=== PATIENT | female | born 1960 | race Caucasian/White ===

== ENCOUNTER 2022-08-29 14:31 | Outpatient (OUT) | payer OTHER, SELFPAY ==
--- NOTE | 2022-08-29 14:32 | PM.CN ---
Consult Note: HPI Data of Consult Patient: known to practice within the last 3 years Consult date: 08/29/22 Requesting Physician: MYLES DIANA NP Primary Care Provider: PETER FERRER Consult Narrative Reason for consult: hip pain Narrative: Patient is here for f/u of left hip injection 04/2022. She received significant relief of pain with increased fx. No new sensorimotor sx or new bowel or bladder issues. Medication regimen is controlling pain and assisting with ability to complete ADLs. She does have chronic lower back pain also bilat. No radiculopathy. We discussed the RFA procedure for L4/5, L5/S1 and she would like to proceed. She has failed conservative management with PT, muscle relaxers and NSAIDS. cc:: CC: MYLES DIANA NP Review of Systems ROS Status of ROS 10 or more systems reviewed and unremarkable except as noted in history and below Musculoskeletal Reports: back pain Exam Constitutional Documenting provider has reviewed patient's vital signs: yes Common normals: no apparent distress, average body habitus, oriented x3, healthy appearing, alert and well nourished General appearance: cooperative, comfortable and well developed Orientation/consciousness: Yes awake, Yes oriented to person, Yes oriented to place and Yes oriented to time HENMT Common normals: normocephalic, external ears normal, nasal mucous membranes and turbinates normal and moist oral mucous membranes Respiratory Common normals: normal respiratory effort, no retractions and no use of accessory muscles Effort & inspection: able to speak in complete sentences and symmetric chest movement Back & Pelvis Lumbar spine/lower back: normal to inspection, ROM limited, pain with ROM, paraspinal muscle tenderness and straight leg raise negative bilaterally Other: positive bilat facet loading pain. carlyle positive to back no groin pain with carlyle muscle strength bilat LE 5/5 with intact sensation Assessment and Plan Assessment and Plan (1) Lumbar spondylosis: (2) Osteoarthritis, hip, bilateral: Plan schedule dx bilat MBB l4/5, L5/S1 under fluoroscopy with ultimate progression to thermal RFA
== END 2022-08-29 14:32 ==
PROVIDERS: PCP Internal Medicine; Visit Provider Nurse Practitioner
DX: M47.816 Spondylosis without myelopathy or radiculopathy, lumbar region (principal); M16.0 Bilateral primary osteoarthritis of hip
CPT/HCPCS: G0463

== ENCOUNTER 2022-10-08 09:48 | Day surgery (SDC) | payer OTHER, SELFPAY ==
[2022-10-08 09:56] VITALS: BP 163/83; PULSE 58; RESP 16; TEMP 36.3; O2SAT 100
[2022-10-08 10:34] VITALS: BP 156/73; PULSE 58; RESP 20; O2SAT 98
[2022-10-08] MEDS: BUPIVACAINE HCL 0.25% PF 25 MG/10 ML VIAL 8 ML INJ (10:35)
[2022-10-08 10:36] VITALS: BP 147/69; PULSE 59; RESP 20; O2SAT 97
--- NOTE | 2022-10-08 10:39 | P.ON_ITS ---
Date of procedure: 10/08/22 Pre-op diagnosis: Lumbar Spondylosis Post-op diagnosis: same Procedure: Bilateral Lumbar 4/5, 5/S1 medial branch block Under fluoroscopic guidance Solution injected: 2milliliters Marcaine 0.25% Anesthesia :none Immediate complications none Time out process compliant After informed consent obtained from the patient placed in the Prone proposition . area was prepped and draped in a sterile fashion using betadine .25 gauge spinal needle inserted over each of the above mentioned target areas . Roosevelt were directed towards the target under fluoroscopic guidance . after encountering each of the targets , no indication of intravascular intraneuronal or intrathecal needle tip placement. Then 0 .5 to 1 Milliliter was injected at each level. Roosevelt removed postoperatively. patient transferred to recovery in stable condition to be discharged home after meeting criteria Surgeon: Mendoza Maldonado
== END 2022-10-08 10:41 | disposition home or self-care (01) ==
LOC: SURGOUT 09:49
PROVIDERS: PCP Internal Medicine; Visit Provider Anesthesiology Pain Medicine
DX: M47.816 Spondylosis without myelopathy or radiculopathy, lumbar region (principal)
CPT/HCPCS: 64493; 64494

== ENCOUNTER 2022-10-17 08:28 | Outpatient (OUT) | payer OTHER, SELFPAY ==
--- NOTE | 2022-10-17 08:55 | P.CN_ITS ---
Consult Note: HPI Data of Consult Patient: known to practice within the last 3 years Consult date: 10/17/22 Requesting Physician: MYLES DIANA NP Primary Care Provider: PETER FERRER Consult Narrative Narrative: Patient is here for f/u of bilat dx MBB to L4/5, L5/S1 done on 10/08/22. She had 90% relief of pain with increased fx for several hours after procedure. Pain is in lumbar area L>R worse with standing and ROM. She would like to proceed with second MBB and ultimately RFA of same area. No new sensorimotor sx or bowel or b ladder issues. No adverse medication SE. Medications assist patient with better ability to perform ADLs. cc:: CC: MYLES DIANA NP Review of Systems ROS Status of ROS 10 or more systems reviewed and unremarkable except as noted in history and below Musculoskeletal Reports: back pain PFSH PFSH Medical History Surgical History Meds Home Medications and Allergies Home Medications Medication Instructions Recorded Confirmed Type baclofen 10 mg tablet 10 mg PO DAILY 08/29/22 10/08/22 History citalopram 20 mg tablet (Celexa) 20 mg PO DAILY 08/29/22 10/08/22 History estradiol 1 mg tablet (Estrace) 1 mg PO DAILY 08/29/22 10/08/22 History omeprazole 40 mg capsule,delayed 40 mg PO DAILY 08/29/22 10/08/22 History release celecoxib 200 mg capsule mg 10/08/22 History Allergies Allergy/AdvReac Type Severity Reaction Status Date / Time Sulfa (Sulfonamide Allergy Mild Unknown Verified 10/08/22 09:56 Antibiotics) Exam Constitutional Documenting provider has reviewed patient's vital signs: yes Common normals: no apparent distress, average body habitus, oriented x3, no limitations, healthy appearing, alert and well nourished General appearance: cooperative, comfortable and well developed Orientation/consciousness: Yes awake, Yes oriented to person, Yes oriented to place and Yes oriented to time HENMT Common normals: normocephalic and moist oral mucous membranes Respiratory Common normals: normal respiratory effort, no retractions and no use of accessory muscles Effort & inspection: able to speak in complete sentences and symmetric chest movement Back & Pelvis Common normals: thoracic and lumbar spine normal to inspection Lumbar spine/lower back: normal to inspection, ROM limited, pain with ROM, paraspinal muscle tenderness and paraspinal muscle spasm Other: facet loading pain bilat lumbar positive carlyle bilat L>R muscle strength 5/5 bilat LE with intact sensation Assessment and Plan Assessment and Plan (1) Lumbar spondylosis: (2) Muscle spasm: Plan schedule second dx MBB bilat L4/5 L5/S1 under fluoroscopy with ultimate progression to thermal RFA
== END 2022-10-17 08:29 | disposition home or self-care (01) ==
LOC: PM 08:28
PROVIDERS: PCP Internal Medicine; Visit Provider Nurse Practitioner
DX: M47.816 Spondylosis without myelopathy or radiculopathy, lumbar region (principal); M62.838 Other muscle spasm
CPT/HCPCS: G0463

== ENCOUNTER 2022-11-26 07:53 | Day surgery (SDC) | payer OTHER, SELFPAY ==
[2022-11-26 08:09] VITALS: BP 133/87; PULSE 68; RESP 16; TEMP 36.3; O2SAT 99
[2022-11-26 08:33] VITALS: BP 159/70; PULSE 64; RESP 18; O2SAT 97
[2022-11-26] MEDS: BUPIVACAINE HCL 0.25% PF 25 MG/10 ML VIAL INJ (08:35)
[2022-11-26 08:37] VITALS: BP 157/74; PULSE 60; RESP 18; O2SAT 98
--- NOTE | 2022-11-26 10:13 | W.PM.PROCNOT ---
Date of procedure: 11/26/22 Pre-op diagnosis: Lumbar spondylosis Post-op diagnosis: same as pre-op Procedure: Bilateral lumbar 4/5, 5/Sacral 1 medial branch block Under fluoroscopic guidance Solution injected: 2millilitersMarcaine 0.25% Anesthesia :none Immediate complications none Time out process compliant After informed consent obtained from the patient placed in the Prone proposition . area was prepped and draped in a sterile fashion using Cloraprep .25 gauge spinal needle inserted over each of the above mentioned target areas . Lacrosse were directed towards the target under fluoroscopic guidance . after encountering each of the targets , no indication of intravascular intraneuronal or intrathecal needle tip placement. Then 0 .5 to 1 Milliliter was injected at each level. Lacrosse removed postoperatively. patient transferred to recovery in stable condition to be discharged home after meeting criteria Anesthesia: Local Surgeon: Mendoza Maldonado Condition: stable
== END 2022-11-26 08:42 | disposition home or self-care (01) ==
PROVIDERS: PCP Internal Medicine; Visit Provider Anesthesiology Pain Medicine
DX: M47.816 Spondylosis without myelopathy or radiculopathy, lumbar region (principal)
CPT/HCPCS: 64493; 64494

== ENCOUNTER 2022-12-04 13:09 | Outpatient (OUT) | payer OTHER, SELFPAY ==
--- NOTE | 2022-12-04 13:35 | P.CN_ITS ---
Consult Note: HPI Data of Consult Patient: known to practice within the last 3 years Requesting Physician: Jordyn Schroeder NP Primary Care Provider: PETER FERRER Consult Narrative Reason for consult: f/u Narrative: Giselle Georges a pleasant 62 year old female presents for evaluation of chronic low back pain without radiculopathy. Today rating pain 2/10. Patient recently had MBB #2 at bilateral L4/5 and L5/s1 with 100% pain relief and functional improvement immediately after and hours following the procedure, was able to wake 1.5 miles and she has not been able to do this in a long time due to her pain. She would like to proceed with Thermal RFAs. cc:: CC: Jordyn Schroeder NP Review of Systems ROS Status of ROS 10 or more systems reviewed and unremarkable except as noted in history and below Musculoskeletal Reports: back pain and joint pain PFSH PFS Medical History Surgical History Meds Home Medications and Allergies Home Medications Medication Instructions Recorded Confirmed Type baclofen 10 mg tablet 10 mg PO DAILY 08/29/22 11/26/22 History citalopram 20 mg tablet (Celexa) 20 mg PO DAILY 08/29/22 11/26/22 History estradiol 1 mg tablet (Estrace) 1 mg PO DAILY 08/29/22 11/26/22 History omeprazole 40 mg capsule,delayed 40 mg PO DAILY 08/29/22 11/26/22 History release celecoxib 200 mg capsule mg 10/08/22 History Allergies Allergy/AdvReac Type Severity Reaction Status Date / Time Sulfa (Sulfonamide Allergy Mild Unknown Verified 10/08/22 09:56 Antibiotics) Exam Constitutional Documenting provider has reviewed patient's vital signs: yes Common normals: no apparent distress, oriented x3, healthy appearing, alert and well nourished General appearance: cooperative HENMT Common normals: normocephalic, hearing grossly normal bilaterally and moist oral mucous membranes Head and scalp: normocephalic Eye Common normals: PERRL Pupil: PERRL Neck & C-Spine Common normals: full ROM General: normal visual inspection Chest Common normals: inspection of chest normal Respiratory Common normals: normal respiratory effort, no retractions and no use of accessory muscles Back & Pelvis Common normals: thoracic and lumbar spine normal to inspection Lumbar spine/lower back: normal to inspection, ROM limited, pain with ROM, paraspinal muscle tenderness and paraspinal muscle spasm Other: facet loading pain bilat lumbar positive carlyle bilat L>R muscle strength 5/5 bilat LE with intact sensation predominately axial back pain without radiculopathy Extremity Left lower extremity: hip joint Other: tenderness over GTB, previous intrarticular hip injection provided 50% pain relief for a few weeks. Neuro Common normals: oriented x3, CN's II-XII intact bilaterally, moves all extremities, no focal motor deficits, no sensory deficits noted and deep tendon reflexes 2+ bilaterally Sensorium/orientation: alert Motor exam: strength 5/5 throughout and no movement abnormalities noted Psych Common normals: mental status grossly normal, thought process normal, cooperative, affect normal, speech normal and activity/motor behavior normal Speech: normal speech Thought process: normal thought process Results Additional Findings Additional findings: I have checked an [place] report on this patient today and there are no aberr ancies noted in the prescribing history.?? A drug screen was completed and reviewed within the last year, and if there has not been a drug screen completed we ordered one today to monitor higher risk, state monitored pain medication use. As part of providing excellent, safe, comprehensive care, the following was completed at our patient's visit: 1. A medication reconciliation and review to ensure accurate knowledge of current/active medications, including asking our patients to inform us about any [id number] medications or herbal remedies/nutritional supplements/alternative remedies. 2. A review to specifically ensure our patients have had annual screening for: elevated body mass index (BMI), tobacco use, screening for depression, and screening for unhealthy alcohol use. When screening is concerning, patients are provided with education and the specific recommendation to discuss the concerning health issue and treatment options with their primary care provider. Assessment and Plan Assessment and Plan (1) Lumbar spondylosis: Assessment and Plan: We discussed the risks and benefits of the procedure with the patient (2) Osteoarthritis, hip, bilateral: (3) Muscle spasm: (4) Greater trochanteric bursitis: Assessment and Plan: consider left GTB injection in the future (5) Obesity (BMI 30-39.9): Plan continue HEP continue current medications, tolerating well without side effects proceed with thermal RFA with IV sedation of left then right L4/5 L5/s1 under fluoroscopy follow up 1 month after completion of procedures
== END 2022-12-04 13:10 | disposition home or self-care (01) ==
LOC: PM 13:09
PROVIDERS: PCP Internal Medicine; Visit Provider Nurse Practitioner
DX: M47.816 Spondylosis without myelopathy or radiculopathy, lumbar region (principal); M16.0 Bilateral primary osteoarthritis of hip; E66.9 Obesity, unspecified; M70.60 Trochanteric bursitis, unspecified hip
CPT/HCPCS: G0463

== ENCOUNTER 2023-01-07 11:28 | Day surgery (SDC) | payer OTHER, SELFPAY ==
[2023-01-07 12:07] VITALS: BP 158/93; PULSE 72; RESP 16; TEMP 36.8; O2SAT 99
[2023-01-07 13:13] VITALS: BP 150/79; PULSE 64; RESP 18; O2SAT 95
[2023-01-07] MEDS: BUPIVACAINE HCL 0.25% PF 25 MG/10 ML VIAL 4 ML INJ (13:16)
[2023-01-07] MEDS: LIDOCAINE HCL 2% 400 MG/20 ML MDV 10 ML INJ (13:17)
[2023-01-07] MEDS: METHYLPREDNISOLONE ACETATE 40 MG/ML VIAL INJ (13:17)
[2023-01-07 13:19] VITALS: BP 148/81; PULSE 68; RESP 18; O2SAT 97
--- NOTE | 2023-01-07 13:36 | W.PM.PROCNOT ---
Date of procedure: 01/07/23 Pre-op diagnosis: Lumbar Spondylosis Post-op diagnosis: same as pre-op Procedure: Left Lumbar 4/5, 5/sacral 1 Radiofrequency ablation Under fluoroscopic guidance Rhizotomy was created using radio frequency ablation at 80?C for 90 seconds 1 to 2 lesions created at each site. Post lesioning injection of 2 mL each of 0.25% Marcaine and 2% lidocaine with Depo-Medrol 40mg. 0.5 to 1 mL injected at each site IV in place no If Intravenous fluids: NS at KVO Anesthesia local 2% lidocaine for Anesthesia Other: local Timeout process compliant After informed consent obtained.Patient brought to the procedure room placed in the prone position skin overlying the area was prepped and draped in a sterile fashion using betadine. 25 gauge needle was used to create a skin wheal over each of the targeted areas utilizing 2% lidocaine. A rhizotomy needle with a 10 mm active tip was inserted over each of the anesthetized areas and directed towards each of the medial branches accomplished under fluoroscopic guidance. after encountering the same we had positive sensory stimulation, negative motor stimulation was noted. lesions were then created. Post lesioning, steroid solution was injected needles removed. Patient was transferred to recovery room in stable condition to be discharged home after meeting criteria. Anesthesia: Local Surgeon: Mendoza Maldonado Condition: stable
== END 2023-01-07 13:27 | disposition home or self-care (01) ==
PROVIDERS: PCP Internal Medicine; Visit Provider Anesthesiology Pain Medicine
DX: M47.816 Spondylosis without myelopathy or radiculopathy, lumbar region (principal)
CPT/HCPCS: 64635; 64636; J1030

== ENCOUNTER 2023-01-28 09:21 | Day surgery (SDC) | payer OTHER, SELFPAY ==
[2023-01-28 09:37] VITALS: BP 128/79; PULSE 78; RESP 16; TEMP 36.8; O2SAT 98
[2023-01-28 10:15] VITALS: BP 160/75; PULSE 66; RESP 18; O2SAT 98
[2023-01-28] MEDS: BUPIVACAINE HCL 0.25% PF 25 MG/10 ML VIAL 4 ML INJ (10:19)
[2023-01-28] MEDS: LIDOCAINE HCL 2% 400 MG/20 ML MDV 10 ML INJ (10:19)
[2023-01-28] MEDS: METHYLPREDNISOLONE ACETATE 40 MG/ML VIAL INJ (10:20)
[2023-01-28 10:23] VITALS: BP 141/77; PULSE 63; RESP 18; O2SAT 99
--- NOTE | 2023-01-28 10:35 | W.PM.PROCNOT ---
Date of procedure: 01/28/23 Pre-op diagnosis: Lumbar Spondylosis Post-op diagnosis: same as pre-op Procedure: Right Lumbar 4/5, 5/sacra; 1 Radiofrequency ablation Under fluoroscopic guidance Rhizotomy was created using radio frequency ablation at 80?C for 90 seconds 1 to 2 lesions created at each site. Post lesioning injection of 2 mL each of 0.25% Marcaine and 2% lidocaine with Depo-Medrol 40mg. 0.5 to 1 mL injected at each site IV in place no If Intravenous fluids: NS at KVO Anesthesia local 2% lidocaine for Anesthesia Other: local Timeout process compliant After informed consent obtained.Patient brought to the procedure room placed in the prone position skin overlying the area was prepped and draped in a sterile fashion using betadine. 25 gauge needle was used to create a skin wheal over each of the targeted areas utilizing 2% lidocaine. A rhizotomy needle with a 10 mm active tip was inserted over each of the anesthetized areas and directed towards each of the medial branches accomplished under fluoroscopic guidance. after encountering the same we had positive sensory stimulation, negative motor stimulation was noted. lesions were then created. Post lesioning, steroid solution was injected needles removed. Patient was transferred to recovery room in stable condition to be discharged home after meeting criteria. Anesthesia: Local Surgeon: Mendoza Maldonado Condition: stable
== END 2023-01-28 10:33 | disposition home or self-care (01) ==
LOC: SURGOUT 09:21
PROVIDERS: PCP Internal Medicine; Visit Provider Anesthesiology Pain Medicine
DX: M47.816 Spondylosis without myelopathy or radiculopathy, lumbar region (principal)
CPT/HCPCS: 64635; 64636; J1030

== ENCOUNTER 2023-02-20 11:16 | Outpatient (OUT) | payer OTHER, SELFPAY ==
--- NOTE | 2023-02-20 11:39 | P.CN_ITS ---
Consult Note: HPI Data of Consult Patient: known to practice within the last 3 years Requesting Physician: Jordyn Schroeder NP Primary Care Provider: PETER FERRER Consult Narrative Reason for consult: f/u Narrative: Flores Georges a pleasant 62 year old female with chronic back pain following after right and left L4/5 L5/S1 thermal RFA. Patient reporting 75% pain relief and functional improvement, today pain is 2/10. Patient feels her pain is now more related to posture and muscle tightness. Continues to benefit from celebrex and baclofen. cc:: CC: Jordyn Schroeder NP Review of Systems ROS Status of ROS 10 or more systems reviewed and unremarkable except as noted in history and below Musculoskeletal Reports: back pain PFSH PFSH Medical History Surgical History H/O hand surgery ?Z98.890 - Other specified postprocedural states (ICD-10) H/O: hysterectomy ?Z90.710 - Acquired absence of both cervix and uterus (ICD-10) History of cholecystectomy ?Z90.49 - Acquired absence of other specified parts of digestive tract (ICD- 10) Meds Home Medications and Allergies Home Medications Medication Instructions Recorded Confirmed Type baclofen 10 mg tablet 10 mg PO DAILY 08/29/22 01/28/23 History citalopram 20 mg tablet (Celexa) 20 mg PO DAILY 08/29/22 01/28/23 History estradiol 1 mg tablet (Estrace) 1 mg PO DAILY 08/29/22 01/28/23 History omeprazole 40 mg capsule,delayed 40 mg PO DAILY 08/29/22 01/28/23 History release celecoxib 200 mg capsule mg 10/08/22 History diazepam 5 mg tablet mg 01/07/23 History Allergies Allergy/AdvReac Type Severity Reaction Status Date / Time Sulfa (Sulfonamide Allergy Mild Unknown Verified 01/07/23 12:05 Antibiotics) Exam Constitutional Documenting provider has reviewed patient's vital signs: yes Common normals: no apparent distress, oriented x3, healthy appearing, alert and well nourished General appearance: cooperative HENMT Common normals: normocephalic, hearing grossly normal bilaterally and moist oral mucous membranes Head and scalp: normocephalic Eye Common normals: PERRL Pupil: PERRL Neck & C-Spine Common normals: full ROM General: normal visual inspection Chest Common normals: inspection of chest normal Respiratory Common normals: normal respiratory effort, no retractions and no use of accessory muscles Back & Pelvis Common normals: thoracic and lumbar spine normal to inspection Lumbar spine/lower back: normal to inspection Other: muscle strength 5/5 bilat LE with intact sensation Neuro Common normals: oriented x3, CN's II-XII intact bilaterally, moves all extremities, no focal motor deficits, no sensory deficits noted and deep tendon reflexes 2+ bilaterally Sensorium/orientation: alert Motor exam: strength 5/5 throughout and no movement abnormalities noted Psych Common normals: mental status grossly normal, thought process normal, cooperative, affect normal, speech normal and activity/motor behavior normal Speech: normal speech Thought process: normal thought process Results Additional Findings Additional findings: I have checked an [place] report on this patient today and there are no aberrancies noted in the prescribing history.?? A drug screen was completed and reviewed within the last year, and if there has not been a drug screen completed we ordered one today to monitor higher risk, state monitored pain medication use. As part of providing excellent, safe, comprehensive care, the following was completed at our patient's visit: 1. A medication reconciliation and review to ensure accurate knowledge of current/active medications, including asking our patients to inform us about any [id number] medications or herbal remedies/nutritional supplements/alternative remedies. 2. A review to specifically ensure our patients have had annual screening for: elevated body mass index (BMI), tobacco use, screening for depression, and screening for unhealthy alcohol use. When screening is concerning, patients are provided with education and the specific recommendation to discuss the concerning health issue and treatment options with their primary care provider. Assessment and Plan Assessment and Plan (1) Lumbar spondylosis: (2) Muscle spasm: Plan can increase baclofen to 10mg BID prn muscle spasms f/u 6 months, sooner if needed
== END 2023-02-20 11:17 | disposition home or self-care (01) ==
LOC: PM 11:16
PROVIDERS: PCP Internal Medicine; Visit Provider Nurse Practitioner
DX: M47.816 Spondylosis without myelopathy or radiculopathy, lumbar region (principal); M62.838 Other muscle spasm
CPT/HCPCS: G0463

== ENCOUNTER 2023-08-06 10:57 | Outpatient (OUT) | payer OTHER, SELFPAY ==
--- OUTSIDE RECORDS SUMMARY | 2023-08-06 11:21 | XMS_ITS | CCD ---
Author Organization [facility] Care Team Providers Care Sales Branch Manager Name Role Phone Ken Ortiz Unavailable DO Alice Polo Primary Care Provider DO Ken Ortiz Attending Provider TOMMIE Heller Emergency Provider DO Alice Polo Primary Care Provider [phone] DO Oswaldo Deleon Emergency Provider [phone] DO Alice Polo Attending Provider Dr. Alice Polo Primary Care [facility] Dr. Alice Polo Primary Care [facility] LUNA NABIL, ALICE Primary Care Unavailable RAHEEL ., DR ARNAV Martínez Attending Unavailable COREA ., DR ARNAV Martínez Admitting Unavailable COREA ., DR ARNAV Martínez Consulting Unavailable [facility] Primary Care Unavailable MAHMOOD .JONI Consulting Unavailable RAHEEL ., DR ARNAV Martínez Attending Unavailable COREA ., DR ARNAV Martínez Admitting Unavailable [facility] Primary Care Unavailable MAHMOOD ., JONI Consulting Unavailable COREA ., DR ARNAV Martínez Attending Unavailable COREA ., DR ARNAV Martínez Admitting Unavailable [facility] Primary Care Unavailable LAKSHMIPATHY ., NARENDRANATH Admitting [place] v[place]SH[place] ., NARENDRANATH Attending [place] v[place] [facility] Primary Care Unavailable COREA ., DR ARNAV Martínez Consulting Unavailable COREA ., DR ARNAV Martínez Attending Unavailable COREA ., DR ARNAV Martínez Admitting Unavailable COREA ., DR ARNAV Martínez Attending Unavailable COREA ., DR ARNAV Martínez Admitting Unavailable MISC, DR SCHMIDT Consulting Unavailable [facility] Primary Care Unavailable MAHMOOD ., JONI Consulting Unavailable MAHMOOD ., JONI Consulting Unavailable COREA ., DR ARNAV Martínez Attending Unavailable COREA ., DR ARNAV Martínez Admitting Unavailable [facility]ICE Primary Care Unavailable COREA ., DR ARNAV Martínez Consulting Unavailable COREA ., DR ARNAV Martínez Attending Unavailable COREA ., DR ARNAV Martínez Admitting Unavailable [facility]ICE Primary Care Unavailable ROLAN CRISOSTOMO Consulting Unavailable [facility] Primary Care Unavailable MAHMOOD ., JONI Attending Unavailable MAHMOOD ., JONI Admitting Unavailable ZIEBER, DR GENESIS Mo Consulting Unavailable MAHMOOD ., JONI Consulting Unavailable [facility] ALICE Primary Care Unavailable MAHMOOD ., JONI Attending Unavailable MAHMOOD ., JONI Admitting Unavailable ZIEBER, DR GENESIS Mo Consulting Unavailable MAHMOOD ., JONI Consulting Unavailable MAHMOOD ., JONI Consulting Unavailable COREA ., DR ARNAV Martínez Attending Unavailable COREA ., DR ARNAV Martínez Admitting Unavailable [facility] Primary Care Unavailable [place], DO Alice Primary Care Provider [phone]( [phone] DO Oswaldo Deleon Emergency Provider [phone] Luna-DO Nabil Alice Attending Provider [phone] Melani DO Alice Referring Provider [phone] MD Ken Mendez Attending Provider Edison Monroe Unavailable Luna-DO Nabil Alice Primary Care Provider MD Edison Monroe Attending Provider CRISTEL Perez Attending Provider [phone] [facility] Primary [facility] Unavailable Edison Monroe Admitting Unavailable [facility] [place] Attending Unavailable Rm Heller Admitting Unavailable Rm Heller Attending Unavailable [facility] Primary Care Unavailable Oswaldo Deleon Attending Unavailable [facility], Alice Primary Care Unavailable Oswaldo Deleon Admitting Unavailable Perez, Alix Admitting Unavailable Perez, Alix Attending Unavailable [facility], Alice Primary Care Unavailable [facility], Alice Primary Care Unavailable Alice Polo Attending Unavailable Alice Polo Admitting Unavailable Ken Mendez Admitting Unavailable Ken Mendez Attending Unavailable Alice Polo Primary Care Unavailable Alice Polo Referring Unavailable Ken Mendez Admitting Unavailable Ken Mendez Attending Unavailable Alice Polo Primary Care Unavailable Gabe Gonzalez Unavailable Alice Polo DO Primary Care Provider PAUL MCGRATH Attending Unavailable PAUL MCGRATH Attending Unavailable ALICE POLO Attending Unavailab PAUL Cortes Attending Unavailable PAUL MCGRATH Attending Unavailable ALICE POLO Referring Unavailab RAQUEL Farrell Attending Unavailable RAQUEL ALFONSO Referring Unavailable PAUL MCGRATH Attending Unavailable PAUL MCGRATH Attending Unavailable Allergies Allergy Classification Reported Allergen(s) Allergy Type Date of Onset Reaction(s) Facility (1 source) Sulfonamides (Antibiotic) Drug allergy (disorder) [facility] (2 sources) Sulfonamides (Antibiotic); Translations: [Sulfa (Sulfonamide Antibiotics)] Allergy to substance 3 [facility] (3 sources) Sulfonamides (Antibiotic) Drug Allergy 3 Hives, Rash [facility] Medications Current Medications Medication Drug Class(es) Dates Sig (Normalized) Sig (Original) baclofen 10 mg oral tablet (16 sources) gamma-Aminobutyric Acid-ergic Agonist Start: 11-25-2020 Baclofen Active 10 MG PO As Directed November 25, 2020 12:00am baclofen ([place]iores al) 5 MG tablet Take 5 mg by mouth as needed at bedtime 0 Active Baclofen Active celecoxib 200 mg oral capsule (6 sources) Nonsteroidal Anti-inflammatory Drug Start: 07-11-2023 take 1 capsule by mouth once daily Celecoxib (Celebrex) 200 mg capsule Active 200 MG PO Daily July 11, 2023 12:00am take 1 capsule by [facility] every twenty-four hours as needed CeleBREX 200 MG capsule Take 200 mg by mouth Daily as needed. 0 Active citalopram 20 mg oral tablet (19 sources) Serotonin Reuptake Inhibitor Start: 09-03-2022 End: 12-11-2023 take 20 mg by mouth once daily Citalopram Active 20 MG PO Daily September 03, 2022 12:00am Start: 04-20-2018 End: 09-03-2022 take 2 tablets by mouth once daily Citalopram (Celexa) 10 mg Tablet Discontinued 20 MG PO Daily April 20, 2018 1:00am September 03, 2022 12:15pm take 1 tablet by vishal th every twenty-four hours CeleXA 10 MG 1 tablet Orally Once a day Active clobetasol propionate 0.5 mg/ml topical cream (3 sources) Corticosteroid clobetasol ([place] vate) 0.05 % cream Apply topically 2 (two) times a day. 0 Active estradiol 0.5 mg oral tablet (16 sources) Estrogen Start: 12-11-2022 End: 12-11-2023 take 1 tablet by mouth in the morning estradiol (Estrace) 0.5 MG tablet Indications: Postmenopausal HRT (hormone replacement therapy) Take 1 tablet (0.5 mg) by mouth in the morning. 90 tablet 3 12/11/2022 12/11/2023 Active Start: 04-20-2018 take 1 mg by mouth once daily Estradiol Active 1 MG PO Daily April 20, 2018 1:00am take 0.5 tablet by m outh once daily Estradiol 0.5 MG 1/2 TABLET Orally DAILY Active fluconazole 150 mg oral tablet (2 sources) Azole Antifungal Start: 05-08-2023 fluconazole ( Diflucan) 150 MG tablet Indications: Vulvovaginal Candidiasis 1 tab now-repeat in 4-7 days if needed. 2 tablet 0 05/08/2023 Active fluticasone (5 sources) Corticosteroid Start: 07-11-2023 fluticasone pr opionate (Flonase) Active INTRANASAL July 11, 2023 12:00am Start: 02-01-2023 take 1 spray(s) nasa l route in the morning fluticasone (Flonase) 50 MCG/ACT nasal spray Administer 1 spray into each nostril in the morning. 0 02/01/2023 Active phentermine hydrochloride 37.5 mg oral capsule (11 sources) Sympathomimetic Amine Anorectic Start: 07-11-2023 take 37.5 mg by mouth once daily 30 minutes after breakfast Phentermine Active 37.5 MG PO Daily July 11, 2023 12:00am must administer 30 minutes before or 1-2 hours after breakfast Start: 03-31-2023 End: 06-07-2023 take 1 tablet by mouth before mealtime phentermine (Adipex-P) 37.5 MG tablet Indications: Abnormal weight gain , BMI 29.0-29.9,adult Take 1 tablet (37.5 mg) by mouth in the morning. Take before meals. 30 tablet 0 05/08/2023 06/07/2023 Active take 1 capsule by [facility] every twenty-four hours Adipex-P 37.5 MG 1 tablet Orally Once a day Not-Taking rifAXIMin 550 mg oral tablet (1 source) Rifamycin Antibacterial Start: 10-11-2021 take 1 tablet by mouth every eight hours Xifaxan 550 MG 1 tablet Orally Three times a day for 14 days Sep, Active Completed/Discontinued Medications Medication Drug Class(es) Dates Sig (Normalized) Sig (Original) acetaminophen 325 mg / HYDROcodone bitartrate 5 mg oral tablet (14 sources) Opioid Agonist Start: 12-10-2018 End: 12-10-2018 take 1 tablet by mouth every four to six hours Hydrocodone-Acetami nophen ([place]) 5-325 mg tablet Discontinued 1 - 2 TAB PO EVERY 4-6 HOURS 50 7 December 10, 2018 December 10, 2018 10:44am Start: 12-10-2018 End: 12-10-2018 take 1 tablet by mouth every four to six hours Hydrocodone-Acetaminophen ([place]) 5-325 mg tablet Discontinued 1 - 2 TAB PO EVERY 4-6 HOURS 50 7 December 10, 2018 December 10, 2018 10:44am Start: 12-10-2018 End: 12-10-2018 take 1 tablet by mouth every four to six hours Hydrocodone-Acetaminophen ([place]) 5-325 mg tablet Discontinued 1 - 2 TAB PO EVERY 4-6 HOURS 50 7 December 10, 2018 December 10, 2018 10:44am Start: 12-10-2018 End: 12-10-2018 take 1 tablet by mouth every four to six hours Hydrocodone-Acetaminophen ([place]) 5-325 mg tablet Discontinued 1 - 2 TAB PO EVERY 4-6 HOURS 50 7 December 10, 2018November 19th, 2019 10:44am Start: 12-10-2018 End: 12-10-2018 take 1 tablet by mouth every four to six hours Hydrocodone-Acetaminophen ([place]) 5-325 mg tablet Discontinued 1 - 2 TAB PO EVERY 4-6 HOURS 50 7 December 10, 2018 December 10, 2018 9:44am Start: 12-10-2018 End: 12-10-2018 take 1 tablet by mouth every four to six hours Hydrocodone-Acetaminophen ([place]) 5-325 mg tablet Discontinued 1 - 2 TAB PO EVERY 4-6 HOURS 50 December 10, 2018 December 10, 2018 9:44am Start: 12-10-2018 End: 12-10-2018 take 1 tablet by mouth every four to six hours Hydrocodone-Acetaminophen ([place]) 5-325 mg tablet Discontinued 1 - 2 TAB PO EVERY 4-6 HOURS 50 7 December 10, 2018 December 10, 2018 10:44am Start: 04-27-2018 End: 12-10-2018 take 1 tablet by mouth every four to six hours Hydrocodone-Acetaminophen ([place]) 5-325 mg tablet Discontinued 1 - 2 TAB PO EVERY 4-6 HOURS 50 April 27, 2018 December 10, 2018 10:43am acetaminophen 325 mg / oxyCODONE hydrochloride 5 mg oral tablet (7 sources) Opioid Agonist Start: 11-09-2021 End: 05-02-2022 take 1 tablet by mouth every six hours Oxycodone-Acetaminophen (Percocet) 5-325 mg tablet Discontinued 1 TAB PO Q6H 10 3 November 09, 2021 May 02, 2022 8:17pm albuterol 0.83 mg/ml inhalation solution (4 sources) beta2-Adrenergic Agonist Albuterol Sulfate (2 .5 MG/3ML) 0.083% 3 ml Inhalation Four times a day Not-Taking amoxicillin 500 mg oral capsule (7 sources) Penicillin-class Antibacterial Start: 11-09-2021 End: 05-02-2022 take 500 mg by mouth three times daily Amoxicillin Discontinued 500 MG PO Three times daily November 09, 2021 12:00am May 02, 2022 8:16pm Budesonide-Formot jailyn (11 sources) Corticosteroid, beta2-Adrenergic Agonist Start: 12-10-2018 End: 11-25-2020 take 1 puff(s) by inhalation once daily Budesonide-Formoterol (Symbicort) 160-4.5 mcg/actuation HFA aerosol inhaler Discontinued 1 PUFF INHALATION Daily December 09, 2018 11:00pm November 25, 2020 12:53pm Start: 12-10-2018 End: 11-25-2020 take 1 puff(s) by inhalation once daily Budesonide-Formoterol (Symbicort) 160-4.5 mcg/actuation HFA aerosol inhaler Discontinued 1 PUFF INHALATION Daily December 10, 2018 12:00am November 25, 2020 1:53pm take 2 puff(s) by in halation twice daily Symbicort 80-4.5 MCG/ACT 2 puffs Inhalation Twice a day Not-Taking diclofenac sodium 50 mg delayed release oral tablet (20 sources) Nonsteroidal Anti-inflammatory Drug Start: 11-25-2020 End: 11-09-2021 take 50 mg by mouth once daily Diclofenac Sodium Discontinued 50 MG PO Daily November 25, 2020 12:00am November 09, 2021 1:23pm Start: 04-20-2018 End: 12-10-2018 take 50 mg by mouth three times daily Diclofenac Sodium Discontinued 50 MG PO Three times daily April 20, 2018 1:00am December 10, 2018 10:43am Diclofenac Activ e dicyclomine hydrochloride 20 mg oral tablet (7 sources) Anticholinergic Start: 11-25-2020 End: 11-09-2021 take 20 mg by mouth three times daily Dicyclomine Discontinued 20 MG PO Three times daily November 25, 2020 12:00am November 09, 2021 1:23pm doxycycline hyclate 100 mg oral tablet (18 sources) Tetracycline-class Drug Start: 05-26-2018 take 1 capsule by mouth every twelve hours Doxycycline Hyclate 100 MG 1 capsule Orally every 12 hrs for 7 days May, Not-Taking Start: 04-27-2018 End: 12-10-2018 take 100 mg by mouth twice daily Doxycycline Hyclate Discontinued 100 MG PO Twice daily 10 5 December 10, 2018 12:00am December 10, 2018 10:44am gabapentin 300 mg oral capsule (11 sources) Anti-epileptic Agent Start: 04-20-2018 End: 12-10-2018 take 300 mg by mouth once daily Gabapentin Discontinued 300 MG PO Daily April 20, 2018 1:00am December 10, 2018 10:43am omeprazole 40 mg delayed release oral capsule (11 sources) Proton Pump Inhibitor Start: 04-20-2018 End: 11-09-2021 take 40 mg by mouth once daily Omeprazole Discontinued 40 MG PO Daily April 20, 2018 1:00am November 09, 2021 1:23pm pantoprazole 40 mg delayed release oral tablet (20 sources) Proton Pump Inhibitor Start: 10-11-2021 End: 07-11-2023 take 40 mg by mouth twice daily Pantoprazole Discontinued 40 MG PO Twice daily 60 September 03, 2022 12:00am June 23, 2023 1:59pm Start: 10-11-2021 End: 09-03-2022 take 40 mg by mouth once daily Pantoprazole Discontinu ed 40 MG PO Daily November 09, 2021 12:00am September 03, 2022 1:20pm promethazine hydrochloride 25 mg oral tablet (7 sources) Phenothiazine Start: 11-24-2019 End: 11-25-2020 take 25 mg by mouth every six hours Promethazine Discontinued 25 MG PO Q6H November 24, 2019 12:00am November 25, 2020 1:53pm sucralfate 1000 mg oral tablet (19 sources) Aluminum Complex Start: 12-29-2020 End: 11-09-2021 take 1 g by mouth three times daily Sucralfate Discontinued 1 GM PO Three times daily December 29, 2020 12:00am November 09, 2021 1:23pm Start: 11-03-2015 take 1 tablet by vishal th every eight hours Sucralfate 1 GM 1 tablet on an empty stomach Orally tid for 30 days Nov, Active Start: 11-02-2015 take 10 mL by mouth three times daily at mealtime Sucralfate 1 GM/10ML 10 ml Orally three times a day w/meals for 30 day(s) Oct, Not-Taking Suprep Bowel Prep . (4 sources) Start: 10-17-2015 Suprep Bowel P rep . DIRECTED Orally DIRECTED for 1 day(s) Sep, Not-Taking Triamcinolone (3 sources) Corticosteroid Start: 11-03-2018 Kenalog -40 mg Oct, 40 mg Problems Active Problems Problem Classification Problem Date Documented Date Episodic/Chronic Abdominal pain (14 sources) Nonspecific abdominal pain; Translations: [Unspecified abdominal pain] 11-25-2020 Episodic Anxiety disorders (2 sources) Generalized anxiety disorder; Translations: [Generalized anxiety disorder] Chronic Asthma (3 sources) Exercise-induced asthma; Translations: [Exercise induced bronchospasm] Onset: 4 04-27-2023 Chronic Cardiac dysrhythmias (7 sources) Palpitations; Translations: [Palpitations] Onset: 3 05-02-2022 Episodic Disorders of teeth and jaw (8 sources) Dental abscess; Translations: [Periapical abscess without sinus] Onset: 2 11-09-2021 Episodic Esophageal disorders (20 sources) Gastroesophageal reflux disease; Translations: [Gastro-esophageal reflux disease without esophagitis] Onset: 1 Resolved: 2 Chronic Headache; including migraine (7 sources) Headache; Translations: [Headache] 11-24-2019 Episodic Menopausal disorders (4 sources) Drug therapy status; Translations: [Hormone replacement therapy] 04-27-2023 Episodic Miscellaneous mental health disorders (1 source) Aerophagy; 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 Mood disorders (4 sources) Major depression in remission; Translations: [Major depressive disorder, single episode, in full remission] 04-27-2023 Chronic Mycoses (2 sources) Mycosis; Translations: [Candidiasis, unspecified] 05-08-2023 Episodic Osteoarthritis (11 sources) Localized, primary osteoarthritis of the wrist; Translations: [Primary osteoarthritis, left wrist] Onset: 3 Chronic Other connective tissue disease (5 sources) Trochanteric bursitis, right hip; Translations: [TROCHANTERIC BURSITIS RIGHT HIP] Onset: 2 Episodic Other gastrointestinal disorders (13 sources) Irritable bowel syndrome; Translations: [Mixed irritable bowel syndrome] 12-29-2020 Chronic Other gastrointestinal disorders (2 sources) Mixed irritable bowel syndrome; Translations: [Irritable bowel syndrome with both constipation and diarrhea K58.2] Onset: 1 Resolved: 2 Chronic Other gastrointestinal disorders (19 sources) Dysphagia; Translations: [Dysphagia, pharyngoesophageal phase] 12-29-2020 Episodic Other gastrointestinal disorders (6 sources) Constipation alternates with diarrhea; Translations: [Other specified symptoms and signs involving the digestive system and abdomen] Episodic Other gastrointestinal disorders (1 source) Dysphagia, unspecified; Translations: [Dysphagia, unspecified] Onset: 3 Episodic Other lower respiratory disease (6 sources) Cough; Translations: [Cough] Episodic Other nervous system disorders (1 source) Other chronic pain; Translations: [OTHER CHRONIC PAIN] Onset: 3 Chronic Other non-traumatic joint disorders (5 sources) Pain in left hip; Translations: [PAIN IN LEFT HIP] Onset: 3 Episodic Other nutritional; endocrine; and metabolic disorders (3 sources) Body mass index 30+ - obesity; Translations: [Body mass index (BMI) 32.0-32.9, adult] Chronic Other nutritional; endocrine; and metabolic disorders (4 sources) Obese class I; Translations: [Obesity, unspecified] Onset: 3 04-27-2023 Chronic Other nutritional; endocrine; and metabolic disorders (4 sources) Overweight in adulthood with body mass index of 25 or more but less than 30; Translations: [Body mass index (BMI) 28.0-28.9, adult] 05-08-2023 Episodic Other nutritional; endocrine; and metabolic disorders (2 sources) Abnormal weight gain; Translations: [Abnormal weight gain] 05-08-2023 Episodic Other upper respiratory disease (6 sources) Hoarse; Translations: [Dysphonia] Episodic Residual codes; unclassified (2 sources) Sleep apnea; Translations: [Sleep apnea, unspecified] Chronic Residual codes; unclassified (1 source) Obstructive sleep apnea (adult)(pediatric); Translations: [Obstructive sleep apnea (adult) (pediatric)] Onset: 3 Chronic Residual codes; unclassified (1 source) Sleep apnea, unspecified; Translations: [Sleep apnea, unspecified] Onset: 3 Chronic Residual codes; unclassified (1 source) Obstructive sleep apnea syndrome; Translations: [Obstructive sleep apnea (adult) (pediatric)] Chronic Residual codes; unclassified (4 sources) Postmenopausal state; Translations: [Asymptomatic menopausal state] 04-27-2023 Episodic Spondylosis; intervertebral disc disorders; other back problems (20 sources) Other spondylosis with radiculopathy, lumbar region; Translations: [Sacroiliitis, not elsewhere classified] Onset: 2 Chronic Spondylosis; intervertebral disc disorders; other back problems (5 sources) Sacrococcygeal disorders, not elsewhere classified; Translations: [Pain in thoracic spine] Onset: 2 Episodic Unclassified (1 source) LOW BACK PAIN, UNSPECIFIED; Translations: [LOW BACK PAIN, UNSPECIFIED] Onset: 3 Unclassified (1 source) Other specified disorders of teeth and supporting structures; Translations: [Other specified disorders of teeth and supporting structures] Onset: 2 Past or Other Problems Problem Classification Problem Date Documented Date Episodic/Chronic Other connective tissue disease (1 source) Trochanteric bursitis, left hip; Translations: [TROCHANTERIC BURSITIS LEFT HIP] Onset: 2 Episodic Other gastrointestinal disorders (1 source) Dysphagia, pharyngoesophageal phase; Translations: [Pharyngoesophageal dysphagia R13.14] Onset: 1 Resolved: 1 Episodic Other gastrointestinal disorders (1 source) Abdominal distension (gaseous) Onset: 2 Resolved: 2 Episodic Results Test Name Value Interpretation Reference Range Facility XR CHEST 2 VIEWSon 4 XR CHEST 2 VIEWS EXAMINATION/TECHNIQU E: XR CHEST 2 VIEWS HISTORY: Cough. COMPARISON: None RESULT: No consolidation. No pleural effusion. No pneumothorax. Normal cardiomediastinal silhouette. No acute osseous findings. Surgical clips right upper quadrant. IMPRESSION: No acute radiographic findings. ELECTRONICALLY SIGNED BY: Paulino Will MD Normal Not Available [place] holter monitor recordingo n 05-10-2022 CA holter monitor recording [facility] [address] [place] [address] Holter Monitor Report Signed Patient: Giselle Georges MR#: [id number] : 1960 Acct:[id number] Age/Sex: 61 / F ADM Date: 05/07/22 Loc: Room: Type: [facility] Attending Dr: Alice Polo DO Copies to: José Ambriz MD, [facility] Alice Polo DO Ordering Provider: Alice Polo DO Date of Service: 05/07/22 CA/CA holter monitor recording: palpitations;Palpitation ORDERED BY: Alice Polo DO INDICATIONS: A 61-year-old patient with palpitations. 1. The rhythm is sinus throughout. Average heart rate 68 beats per minute. Minimum heart rate was 51 beats per minute, sinus bradycardia at 4:07 a.m. and maximum heart rate was 126 beats per minute, sinus tachycardia at 10:59 a.m. 2. Forty-eight isolated PVCs were noted with 1 event of atrial or ventricular couplet. 3. Sixty-five premature atrial complexes were noted with 1 event of atrial tachycardia for 3 beats at rate 121 beats per minute. Six atrial events of couplets were noted. 4. No pauses exceeding 2 seconds were seen. 5. The patient's diary had multiple entries for symptoms of palpitations, which occasionally correlated with premature atrial or ventricular beats. Symptoms of anxiety were associated with sinus tachycardia. CONCLUSION: This is a 24-hour Holter monitor that reveals sinus rhythm mechanism throughout. Average heart rate 68 beats per minute. Infrequent isolated PACs and PVCs were noted, at times leading to symptoms of palpitations. Anxiety reported by the patient was associated with sinus tachycardia. No pauses exceeding 2 seconds were seen. No previous studies are available for comparison. Transcribed By: NTS 05/10/221950 Dictated By: José Ambriz MD, [facility] 05/10/22 1450 Signed By: 05/20/22 09 Normal [facility] Activated partial thrombopla stin time (aPTT) in platelet poor plasma by coagulation aOrdered By: Oswaldo Deleon on 05-02-2022 aPTT Coag (PPP) [Time] 30.0 s 25.1-36.5 [facility] Basophils Auto (Bld) [#/Vol] Ordered By: Oswaldo Deleon on 05-02-2022 Basophils (Bld) [#/Vol] 0.0 10*3/uL 0.0-0.2 [facility] Basophils/100 WBC Auto (Bld) Ordered By: Oswaldo Deleon on 02-09-2023 Basophils/100 WBC (Bld) 0.7 % . [facility] Body fluid albumin measureme nt (mass/volume)Ordered By: Oswaldo Deleon on 05-02-2022 Albumin (Body fld) [Mass/Vol] 4.0 g/dL 3.2-5.5 [facility] Complete Blood Count Auto Di ffon 05-02-2022 Basophils (Bld) [#/Vol] 0.0 10*3/uL Normal 0.0-0.2 [facility] Comment on above: Result Comment: PERF ORMED BY: [place] [address] PATHOLOGIST [employer]ER MATTHEW SHAFER M.D. Performed By: #### D DIMER, MG, PT, CKMB, HS TROP, PTT, CBC, CMP, CK #### [address] Basophils/100 WBC (Bld) 0.7 % Normal . [facility] Comment on above: Performed By: #### D DIMER, MG, PT, CKMB, HS TROP, PTT, CBC, CMP, CK #### [address] Eosinophils (Bld) [#/Vol] 0.4 10*3/uL Normal 0.0-0.45 [facility] Comment on above: Performed By: #### D DIMER, MG, PT, CKMB, HS TROP, PTT, CBC, CMP, CK #### [facility] [address] [place] [address] Eosinophils/100 WBC (Bld) 4.9 % Normal . [facility] [facility] [place] Comment on above: Performed By: #### D DIMER, MG, PT, CKMB, HS TROP, PTT, CBC, CMP, CK #### [address] Erythrocyte distribution width (RBC) [Ratio] 13.0 % Normal 11.9-15.3 [facility] [place] Comment on above: Performed By: #### D DIMER, MG, PT, CKMB, HS TROP, PTT, CBC, CMP, CK #### [address] Hematocrit (Bld) [Volume fraction] 43.7 % Normal 34.0-46.4 [facility] [place] Comment on above: Performed By: #### D DIMER, MG, PT, CKMB, HS TROP, PTT, CBC, CMP, CK #### [address] Hemoglobin (Bld) [Mass/Vol] 14.7 g/dL Normal 11.8-15.4 [facility] [place] Comment on above: Performed By: #### D DIMER, MG, PT, CKMB, HS TROP, PTT, CBC, CMP, CK #### [address] Lymphocytes (Bld) [#/Vol] 1.6 10*3/uL Normal 1.00-4.8 [facility] [place] Comment on above: Performed By: #### D DIMER, MG, PT, CKMB, HS TROP, PTT, CBC, CMP, CK #### [address] Lymphocytes/100 WBC (Bld) 22.0 % Normal . [facility] [place] Comment on above: Performed By: #### D DIMER, MG, PT, CKMB, HS TROP, PTT, CBC, CMP, CK #### [address] MCH (RBC) [Entitic mass] 30.0 pg Normal 24.7-34.3 [facility] [place] Comment on above: Performed By: #### D DIMER, MG, PT, CKMB, HS TROP, PTT, CBC, CMP, CK #### [address] MCV (RBC) [Entitic vol] 88.9 fL Normal 80-100 [facility] [place] Comment on above: Performed By: #### D DIMER, MG, PT, CKMB, HS TROP, PTT, CBC, CMP, CK #### [address] Mean Corpuscular HGB Conc 33.7 g/dL Normal 32.0-35.0 [facility] [place] Comment on above: Performed By: #### D DIMER, MG, PT, CKMB, HS TROP, PTT, CBC, CMP, CK #### [address] Monocytes (Bld) [#/Vol] 0.8 10*3/uL Normal 0.0-0.8 [facility] [place] Comment on above: Performed By: #### D DIMER, MG, PT, CKMB, HS TROP, PTT, CBC, CMP, CK #### [address] Monocytes/100 WBC (Bld) 18.10 % Normal 0.00-20.00 [facility] [place] Comment on above: Performed By: #### D DIMER, MG, PT, CKMB, HS TROP, PTT, CBC, CMP, CK #### [address] Monocytes/100 WBC (Bld) 10.2 % Normal . [facility] [place] Comment on above: Performed By: #### D DIMER, MG, PT, CKMB, HS TROP, PTT, CBC, CMP, CK #### [address] Neutrophils (Bld) [#/Vol] 4.6 10*3/uL Normal 1.8-7.7 [facility] [place] Comment on above: Performed By: #### D DIMER, MG, PT, CKMB, HS TROP, PTT, CBC, CMP, CK #### [address] Neutrophils/100 WBC (Bld) 62.2 % Normal . [facility] [place] Comment on above: Performed By: #### D DIMER, MG, PT, CKMB, HS TROP, PTT, CBC, CMP, CK #### [address] NRBC% 0.1 /100{WBC} Normal 0-0.5 [facility] [place] Comment on above: Performed By: #### D DIMER, MG, PT, CKMB, HS TROP, PTT, CBC, CMP, CK #### [address] [place] [address] [place] Platelet mean volume (Bld) [Entitic vol] 8.7 fL Normal 6.3-10.7 [facility] [place] Comment on above: Performed By: #### D DIMER, MG, PT, CKMB, HS TROP, PTT, CBC, CMP, CK #### [address] Platelets (Bld) [#/Vol] 271 10*3/uL Normal 150-450 [facility] [place] Comment on above: Performed By: #### D DIMER, MG, PT, CKMB, HS TROP, PTT, CBC, CMP, CK #### [address] RBC (Bld) [#/Vol] 4.92 10*6/uL Normal 3.60-5.00 [facility] Comment on above: Performed By: #### D DIMER, MG, PT, CKMB, HS TROP, PTT, CBC, CMP, CK #### [address] WBC (Bld) [#/Vol] 7.4 10*3/uL Normal 3.8-11.6 [facility] Comment on above: Performed By: #### D DIMER, MG, PT, CKMB, HS TROP, PTT, CBC, CMP, CK #### [address] Comprehensive Metabolic Pane howie 05-02-2022 Albumin [Mass/Vol] 4.0 g/dL Normal 3.2-5.5 [facility] Comment on above: Performed By: #### D DIMER, MG, PT, CKMB, HS TROP, PTT, CBC, CMP, CK #### [address] Albumin/Globulin [Mass ratio] 1.4 {ratio} Normal [facility] [place] Comment on above: Performed By: #### D DIMER, MG, PT, CKMB, HS TROP, PTT, CBC, CMP, CK #### [address] ALP [Catalytic activity/Vol] 56 U/L Normal 32-92 [facility] [place] Comment on above: Performed By: #### D DIMER, MG, PT, CKMB, HS TROP, PTT, CBC, CMP, CK #### [facility] [address] ALT [Catalytic activity/Vol] 21 U/L Normal 10-60 [facility] [place] Comment on above: Performed By: #### D DIMER, MG, PT, CKMB, HS TROP, PTT, CBC, CMP, CK #### [facility] [address] Anion gap [Moles/Vol] 11.4 mmol/L Normal 6.0-15.0 [facility] Comment on above: Performed By: #### D DIMER, MG, PT, CKMB, HS TROP, PTT, CBC, CMP, CK #### [address] AST [Catalytic activity/Vol] 20 U/L Normal 10-42 [facility] [place] Comment on above: Performed By: #### D DIMER, MG, PT, CKMB, HS TROP, PTT, CBC, CMP, CK #### [address] Bilirubin [Mass/Vol] 0.5 mg/dL Normal 0.3-1.2 [facility] Comment on above: Performed By: #### D DIMER, MG, PT, CKMB, HS TROP, PTT, CBC, CMP, CK #### [address] Calcium [Mass/Vol] 9.4 mg/dL Normal 8.2-10.2 [facility] Comment on above: Performed By: #### D DIMER, MG, PT, CKMB, HS TROP, PTT, CBC, CMP, CK #### [address] Chloride [Moles/Vol] 100 mmol/L Normal 95-114 [facility] Comment on above: Performed By: #### D DIMER, MG, PT, CKMB, HS TROP, PTT, CBC, CMP, CK #### [facility] [address] CO2 [Moles/Vol] 27.5 mmol/L Normal 22.0-30.0 [facility] Comment on above: Performed By: #### D DIMER, MG, PT, CKMB, HS TROP, PTT, CBC, CMP, CK #### [facility] [address] Creatinine [Mass/Vol] 0.79 mg/dL Normal 0.44-1.03 [facility] Comment on above: Performed By: #### D DIMER, MG, PT, CKMB, HS TROP, PTT, CBC, CMP, CK #### [address] Creatinine Clr Calc Pharmacy 67.96 [facility] Comment on above: Performed By: #### D DIMER, MG, PT, CKMB, HS TROP, PTT, CBC, CMP, CK #### [address] Estimated GFR ( Janet > 60 [facility] Comment on above: Result Comment: GFR estimated reference range: According to KDOQI guidelines, <60 ml/min/1.73m2 is sufficient to diagnose a patient with chronic kidney disease. Performed By: #### D DIMER, MG, PT, CKMB, HS TROP, PTT, CBC, CMP, CK #### [address] Estimated GFR (Non- Am > 60 [facility] Comment on above: Performed By: #### D DIMER, MG, PT, CKMB, HS TROP, PTT, CBC, CMP, CK #### [address] Globulin (S) [Mass/Vol] 2.9 g/dL [facility] Comment on above: Performed By: #### D DIMER, MG, PT, CKMB, HS TROP, PTT, CBC, CMP, CK #### [address] Glucose [Mass/Vol] 87 mg/dL Normal 70-100 [facility] Comment on above: Result Comment: [facility] Glucose Reference Range is dependent on time and content of last meal. Glucose of more than 200 mg/dL in a nonstressed, ambulatory subject supports the diagnosis of Diabetes Mellitus. ADA recommended reference range Performed By: #### D DIMER, MG, PT, CKMB, HS TROP, PTT, CBC, CMP, CK #### [facility] [address] Potassium [Moles/Vol] 3.9 mmol/L Normal 3.5-5.1 [facility] Comment on above: Performed By: #### D DIMER, MG, PT, CKMB, HS TROP, PTT, CBC, CMP, CK #### [facility] [address] Protein [Mass/Vol] 6.9 g/dL Normal 6.1-7.9 [facility] Comment on above: Performed By: #### D DIMER, MG, PT, CKMB, HS TROP, PTT, CBC, CMP, CK #### [facility] [address] Sodium [Moles/Vol] 135 mmol/L Low 136-146 [facility] Comment on above: Performed By: #### D DIMER, MG, PT, CKMB, HS TROP, PTT, CBC, CMP, CK #### [facility] [address] Urea nitrogen [Mass/Vol] 21 mg/dL Normal 9-23 [facility] [place] Comment on above: Performed By: #### D DIMER, MG, PT, CKMB, HS TROP, PTT, CBC, CMP, CK #### [facility] [address] [place] [address] [place] Creatine Kinaseon 05-02-2022 CK [Catalytic activity/Vol] 50 U/L Normal 22-269 [facility] [place] Comment on above: Performed By: #### D DIMER, MG, PT, CKMB, HS TROP, PTT, CBC, CMP, CK #### [place] [address] [place] Creatine kinase [Enzymatic a ctivity/volume] in Serum or PlasmaOrdered By: Oswaldo Deleon on 05-02-2022 CK [Catalytic activity/Vol] 50 U/L 22-269 [facility] [place] Creatinine Kinase MBon 05-02 CK.MB [Mass/Vol] 0.9 ng/mL Normal 0.6-6.3 [facility] Comment on above: Performed By: #### D DIMER, MG, PT, CKMB, HS TROP, PTT, CBC, CMP, CK #### [facility] [address] CKMB Relative Index 1.8 % Normal 0.00-2.50 [facility] Comment on above: Performed By: #### D DIMER, MG, PT, CKMB, HS TROP, PTT, CBC, CMP, CK #### [address] Creatinine and Glomerular fi ltration rate.predicted panel (S/P/Bld)Ordered By: Oswaldo Deleon on 05-02-2022 Creatinine [Mass/Vol] 0.79 mg/dL 0.44-1.03 [facility] D-Dimer High Sensitivityon 0 05-02-2022 D-Dimer High Sensitivity < 200 Normal 0-243 [facility] [place] Comment on above: Result Comment: The reference range for D-dimer is <243 ng/mL D-dimer units. D-dimer results must be used in conjunction with a clinical pretest probability (PTP) assessment model for deep vein thrombosis (DVT) and pulmonary embolism (PE). Results <230 ng/mL d-dimer units can be used as a negative predictor in patients with low or moderate probability for DVT/PE. Results above the exclusion threshold of 230 ng/ml D-dimer units for DVT/PE may indicate the need for further diagnostic testing. D-Dimer can be increased in hospitalized patients due to co-morbid conditions. PERFORMED BY: [place] [address] PATHOLOGIST [employer] DISPATCHER MATTHEW SHAFER M.D. Performed By: #### D DIMER, MG, PT, CKMB, HS TROP, PTT, CBC, CMP, CK #### [place] [id number] [facility] ECG 12 lead ECGon 05-02-2022 ECG 12 lead ECG [facility] [address] [place] [address] Electrocardiograph Report Signed Patient: Giselle Georges MR#: [id number] : 1960 Acct:[id number] Age/Sex: 61 / F ADM Date: 05/02/22 Loc: ER Room: Type: [facility] ER Attending Dr: Ordering Provider: Oswaldo Deleon DO Date of Service: 05/02/2212/14/1632 ECG/ECG 12 lead ECG: Arrhythmia/Palpitations Copies to: Test Reason : Blood Pressure : 176/086 mmHG Vent. Rate : 076 BPM Atrial Rate : 076 BPM P-R Int : 156 ms QRS Dur : 070 ms QT Int : 380 ms P-R-T Axes : 054 051 054 degrees QTc Int : 427 ms Normal sinus rhythm Possible Left atrial enlargement Borderline ECG When compared with ECG of 02-DEC-2018 12:05, No significant change was found Confirmed by Oswaldo Deleon DO ([id number]) on 05/03/2022 1:25:30 AM Referred By: Electronically Signed By:Oswaldo Deleon DO Transcribed By: MUS Signed By Oswaldo Deleon DO 3 0125 Normal [facility] [place] Eosinophils Auto (Bld) [#/Vo l]Ordered By: Oswaldo Deleon on 05-02-2022 Eosinophils (Bld) [#/Vol] 0.4 10*3/uL 0.0-0.45 [facility] [place] Eosinophils/100 WBC Auto (Bl d)Ordered By: Oswaldo Deleon on 05-02-2022 Eosinophils/100 WBC (Bld) 4.9 % . [facility] [place] Erythrocyte distribution wid th Auto (RBC) [Ratio]Ordered By: Oswaldo Deleon on 05-02-2022 Erythrocyte distribution width (RBC) [Ratio] 13.0 % 11.9-15.3 [facility] [place] Estimated glomerular filtrat ion rate (GFR) non- AmericanOrdered By: Oswaldo Deleon on 05-02-2022 GFR/1.73 sq M.predicted among non-blacks MDRD (S/P/Bld) [Vol rate/Area] > 60 mL/Min [facility] [place] Globulin Calc (S) [Mass/Vol] Ordered By: Oswaldo Deleon on 05-02-2022 Globulin (S) [Mass/Vol] 2.9 g/dL [facility] [place] Hematocrit Auto (Bld) [Volum e fraction]Ordered By: Oswaldo Deleon on 05-02-2022 Hematocrit (Bld) [Volume fraction] 43.7 % 34.0-46.4 [facility] [place] Hemoglobin [Mass/volume] in BloodOrdered By: Oswaldo Deleon on 05-02-2022 Hemoglobin (Bld) [Mass/Vol] 14.7 g/dL 11.8-15.4 [facility] [place] Laboratory - Chemistry and C hemistry - challengeOrdered By: Oswaldo Deleon on 05-02-2022 Magnesium [Mass/Vol] 2.0 mg/dL 1.6-2.6 [facility] Laboratory - CoagulationOrde red By: Oswaldo Deleon on 05-02-2022 PT Coag (PPP) [Time] 11.6 s 9.0-12.9 [facility] Leukocytes [#/volume] correc nikhil for nucleated erythrocytes in Blood by Automated counOrdered By: Oswaldo Deleon on 05-02-2022 WBC corrected for nucl RBC Auto (Bld) [#/Vol] 7.4 10*3/uL 3.8-11.6 [facility] [place] Lymphocytes Auto (Bld) [#/Vo l]Ordered By: Oswaldo Deleon on 05-02-2022 Lymphocytes (Bld) [#/Vol] 1.6 10*3/uL 1.00-4.8 [facility] [place] Lymphocytes/100 WBC Auto (Bl d)Ordered By: Oswaldo Deleon on 05-02-2022 Lymphocytes/100 WBC (Bld) 22.0 % . [facility] [place] MCH Auto (RBC) [Entitic mass ]Ordered By: Oswaldo Deleon on 05-02-2022 MCH (RBC) [Entitic mass] 30.0 pg 24.7-34.3 [facility] [place] MCHC Auto (RBC) [Mass/Vol]Or dered By: Oswaldo Deleon on 05-02-2022 MCHC (RBC) [Mass/Vol] 33.7 g/dL 32.0-35.0 [facility] MCV Auto (RBC) [Entitic vol] Ordered By: Oswaldo Deleon on 05-02-2022 MCV (RBC) [Entitic vol] 88.9 fL 80-100 [facility] [place] Magnesiumon 05-02-2022 Magnesium [Mass/Vol] 2.0 mg/dL Normal 1.6-2.6 [facility] Comment on above: Result Comment: PERF ORMED BY: [place] [address] PATHOLOGIST [employer] DISPATCHER MATTHEW SHAFER M.D. Performed By: #### D DIMER, MG, PT, CKMB, HS TROP, PTT, CBC, CMP, CK #### [address] Monocyte distribution width [Entitic volume] in Blood by AutomatedOrdered By: Oswaldo Deleon on 05-02-2022 Monocyte distribution width Auto (Bld) [Entitic vol] 18.10 % 0.00-20.00 [facility] [place] Monocytes Auto (Bld) [#/Vol] Ordered By: Oswaldo Deleon on 05-02-2022 Monocytes (Bld) [#/Vol] 0.8 10*3/uL 0.0-0.8 [facility] [place] Monocytes/100 WBC Auto (Bld) Ordered By: Oswaldo Deleon on 05-02-2022 Monocytes/100 WBC (Bld) 10.2 % . [facility] [place] Neutrophils Auto (Bld) [#/Vo l]Ordered By: Oswaldo Deleon on 05-02-2022 Neutrophils (Bld) [#/Vol] 4.6 10*3/uL 1.8-7.7 [facility] [place] Neutrophils/100 WBC Auto (Bl d)Ordered By: Oswaldo Deleon on 05-02-2022 Neutrophils/100 WBC (Bld) 62.2 % . [facility] [place] No Panel InformationOrdered By: Oswaldo Deleon on 05-02-2022 D-Dimer Quantitative (PE/DVT) < 200 ng/mL 0-243 [facility] [place] Comment on above: The reference range for D-dimer is <243 ng/mL D-dimer units.D-dimer results must be used in conjunction with a clinicalpretest probability (PTP) assessment model for deep veinthrombosis (DVT) and pulmonary embolism (PE). Results <230ng/mL d-dimer units can be used as a negative predictor inpatients with low or moderate probability for DVT/PE.Results above the exclusion threshold of 230 ng/ml D-dimerunits for DVT/PE may indicate the need for furtherdiagnostic testing.D-Dimer can be increased in hospitalized patients due toco-morbid conditions. Estimated GFR () > 60 mL/Min [facility] [place] Comment on above: GFR estimated refere nce range: According to KDOQI guidelines, <60 ml/min/1.73m2 is sufficient to diagnose a patient with chronic kidney disease. Pharmacy Creatinine Clearance (Chem 67.96 [facility] [place] Nucleated erythrocytes [Pres ence] in Blood by Automated countOrdered By: Oswaldo Deleon on 05-02-2022 Nucleated RBC Auto Ql (Bld) 0.1 /100{WBC} 0-0.5 [facility] [place] Partial Thromboplastin Timeo n 05-02-2022 aPTT Coag (Bld) [Time] 30.0 s Normal 25.1-36.5 [facility] Comment on above: Performed By: #### D DIMER, MG, PT, CKMB, HS TROP, PTT, CBC, CMP, CK #### [facility] [address] Platelet mean volume Auto (B ld) [Entitic vol]Ordered By: Oswaldo Deleon on 05-02-2022 Platelet mean volume (Bld) [Entitic vol] 8.7 fL 6.3-10.7 [facility] [place] Platelet poor plasma interna tional normalized ratio (INR) by coagulation assay (relatOrdered By: Oswaldo Deleon on 05-02-2022 INR Coag (PPP) [Relative time] 1.0 {INR} [facility] [place] Comment on above: INR Therapeutic Rang e A) Pre- and Peroperative OAT started two weeks before surgery. NOT HIP SURGERY: 1.5 - 2.5 HIP SURGERY: 2 - 3B) Primary and secondary prevention of venous THROMBOSIS: 2 - 3C) Active venous thrombosis, pulmonary embolismand prevention of recurrent venous thrombosis: 2 - 3D) Prevention of arterial thromboembolismincluding patients with mechanical heart valves: 3 - 4.5 Platelets Auto (Bld) [#/Vol] Ordered By: Oswaldo Deleon on 05-02-2022 Platelets (Bld) [#/Vol] 271 10*3/uL 150-450 [facility] [place] Protein [Mass/volume] in Ser um or PlasmaOrdered By: Oswaldo Deleon on 05-02-2022 Protein [Mass/Vol] 6.9 g/dL 6.1-7.9 [facility] Prothrombin Time INRon 05-02 INR Coag (PPP) [Relative time] 1.0 {INR} Normal [facility] [place] Comment on above: Result Comment: INR Therapeutic Range A) Pre- and Peroperative OAT started two weeks before surgery. NOT HIP SURGERY: 1.5 - 2.5 HIP SURGERY: 2 - 3 B) Primary and secondary prevention of venous THROMBOSIS: 2 - 3 C) Active venous thrombosis, pulmonary embolism and prevention of recurrent venous thrombosis: 2 - 3 D) Prevention of arterial thromboembolism including patients with mechanical heart valves: 3 - 4.5 Performed By: #### D DIMER, MG, PT, CKMB, HS TROP, PTT, CBC, CMP, CK #### [facility] [address] PT Coag (PPP) [Time] 11.6 s Normal 9.0-12.9 [facility] Comment on above: Performed By: #### D DIMER, MG, PT, CKMB, HS TROP, PTT, CBC, CMP, CK #### [facility] [address] RBC Auto (Bld) [#/Vol]Ordere d By: Oswaldo Deleon on 05-02-2022 RBC (Bld) [#/Vol] 4.92 10*6/uL 3.60-5.00 [facility] Serum or plasma alanine reyna otransferase measurement without P-5'-P (enzymatic activiOrdered By: Oswaldo Deleon on 05-02-2022 ALT No additional P-5'-P [Catalytic activity/Vol] 21 U/L 10-60 [facility] [place] Serum or plasma albumin/glob ulin mass ratioOrdered By: Oswaldo Deleon on 05-02-2022 Albumin/Globulin [Mass ratio] 1.4 {ratio} [facility] [place] Serum or plasma alkaline raphael sphatase measurement (enzymatic activity/volume)Ordered By: Oswaldo Deleon on 05-02-2022 ALP [Catalytic activity/Vol] 56 U/L 32-92 [facility] [place] Serum or plasma anion gap de terminationOrdered By: Oswaldo Deleon on 05-02-2022 Anion gap [Moles/Vol] 11.4 mmol/L 6.0-15.0 [facility] Serum or plasma aspartate am inotransferase measurement (enzymatic activity/volume)Ordered By: Oswaldo Deleon on 05-02-2022 AST [Catalytic activity/Vol] 20 U/L 10-42 [facility] [place] Serum or plasma calcium shellie urement (mass/volume)Ordered By: Oswaldo Deleon on 05-02-2022 Calcium [Mass/Vol] 9.4 mg/dL 8.2-10.2 [facility] Serum or plasma chloride isidro surement (moles/volume)Ordered By: Oswaldo Deleon on 05-02-2022 Chloride [Moles/Vol] 100 mmol/L 95-114 [facility] Serum or plasma creatine kin ase MB (CKMB)/total creatine kinase (CK) ratio by calculaOrdered By: Oswaldo Deleon on 05-02-2022 CK.MB Calc [Catalytic fraction] 1.8 % 0.00-2.50 [facility] [place] Serum or plasma creatine kin ase MB measurement (mass/volume)Ordered By: Oswaldo Deleon on 05-02-2022 CK.MB [Mass/Vol] 0.9 ng/mL 0.6-6.3 [facility] Serum or plasma glucose shellie urement (mass/volume)Ordered By: Oswaldo Deleon on 05-02-2022 Glucose [Mass/Vol] 87 mg/dL 70-100 [facility] Comment on above: ADA recommended refe rence rangeRandom Glucose Reference Range is dependent on time and content of last meal. Glucose of more than 200 mg/dL in a nonstressed, ambulatory subject supports the diagnosis of Diabetes Mellitus. Serum or plasma potassium me asurement (moles/volume)Ordered By: Oswaldo Deleon on 05-02-2022 Potassium [Moles/Vol] 3.9 mmol/L 3.5-5.1 [facility] Serum or plasma sodium measu rement (moles/volume)Ordered By: Oswaldo Deleon on 05-02-2022 Sodium [Moles/Vol] 135 mmol/L 136-146 [facility] Serum or plasma total biliru bin measurement (mass/volume)Ordered By: Oswaldo Deleon on 05-02-2022 Bilirubin [Mass/Vol] 0.5 mg/dL 0.3-1.2 [facility] Serum or plasma total carbon dioxide measurement (moles/volume)Ordered By: Oswaldo Deleon on 05-02-2022 CO2 [Moles/Vol] 27.5 mmol/L 22.0-30.0 [facility] Serum or plasma urea nitroge n measurement (mass/volume)Ordered By: Oswaldo Deleon on 05-02-2022 Urea nitrogen [Mass/Vol] 21 mg/dL 9-23 [facility] [place] Troponin I High Sensitivityo n 05-02-2022 Troponin I High Sensitivity 3 pg/mL Normal 0-15 [facility] [place] Comment on above: Result Comment: PERF ORMED BY: [facility] [address] [place] [address] PATHOLOGIST [employer] DISPATCHER MATTHEW SHAFER M.D. Performed By: #### D DIMER, MG, PT, CKMB, HS TROP, PTT, CBC, CMP, CK #### [facility] [address] [place] [address] [place] Troponin I.cardiac [Mass/vol ume] in Serum or Plasma by High sensitivity methodOrdered By: Oswaldo Deleon on 05-02-2022 Troponin I.cardiac High sensitivity method [Mass/Vol] 3 pg/mL 0-15 [facility] [place] WBC Auto (Bld) [#/Vol]Ordere d By: Oswaldo Deleon on 05-02-2022 WBC (Bld) [#/Vol] 7.4 10*3/uL 3.8-11.6 [facility] XR chest 2V*on 05-02-2022 XR chest 2V* [facility] [address] [place] [address] XRay Report Signed Patient: Giselle Georges MR#: [id number] : 1960 Acct:[id number] Age/Sex: 61 / F ADM Date: 05/02/22 Loc: ER Room: Type: [facility] ER Attending Dr: Copies to: Oswaldo Deleon DO Ordering Provider: Oswaldo Deleon DO Date of Service: 05/02/22 XR/XR chest 2V*: Arrhythmia/Palpitations Plain film chest2 view HISTORY:Rapid heart rate less week. Shortness of breath. COMPARISON:11/02/15 FINDINGS: Cardiac, mediastinal and hilar silhouettes are stable. No acute lung process, pleural effusion or pneumothorax identified. Thoracic spondylosis present. XR/XR chest 2V* IMPRESSION: No acute process. Impression dictated by: Ney Young M.D.05/02/2022 8:17 PM Dictation Location: [place] [address] Transcribed By: [facility] 05/02/222016 Dictated By: Ney Young DO 05/02/222015 Signed By: 05/02/222016 [facility] XR TSPINE MIN 4 VIEWSon 01-22 XR TSPINE MIN 4 VIEWS EXAMINATION: XR TS PINE MIN 4 VIEWS HISTORY: Acute thoracic back pain ; no known injury, shoulder pain COMPARISON: No relevant comparison available. FINDINGS: BONES: Slight left convex curvature of upper thoracic spine. No fracture, spondylolisthesis, bone lesion. DISC SPACES: No significant disc height narrowing, subluxation, or endplate abnormality. PARASPINOUS: Negative. No paraspinous abnormality is seen. OTHER: Negative. IMPRESSION: 1. No acute bone abnormality or significant degenerative changes. 2. Minimal levocurvature of upper thoracic spine; positioning versus muscle spasm. Electronically authenticated by: GENESIS BELLO Date: 2022-02-07 15:12 Normal [facility] SCREENING MAMMOGRAM W/NUPUR, BILATERAL*on 12-06-2021 SCREENING MAMMOGRAM W/NUPUR, BILATERAL* CLINICAL HISTORY: Screening Mammogram COMPARISON: Priors dating back to 2017. TECHNIQUE: 2D and 3D mammogram imaging of both breasts was performed. RESULT: DENSITY: There are scattered areas of fibroglandular density. There is no suspicious mass, asymmetry, architectural distortion, or calcification. No significant change since the prior mammograms. IMPRESSION: BIRADS 1 : NEGATIVE, NORMAL INTERVAL FOLLOW UP FOLLOW-UP: 12 months DENSITY: Scattered MAMMOGRAPHY IS VERY IMPORTANT TO YOUR HEALTH. THE CURRENT [employer] GUIDELINES RECOMMENDS ANNUAL MAMMOGRAPHY BEGINNING AT AGE 42 THIS FACILITY USES A REMINDER SYSTEM TO ENSURE ALL PATIENTS RECEIVE REMINDER NOTIFICATIONS AT THE APPROPRIATE TIME BASED ON THE RECOMMENDATIONS OF THIS EXAM. 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 Accredited by the ACR and FDA. Report reported and signed by Paulino Will on 12/06/2021 1003 Normal [facility] CT facial bones wo conon CT facial bones wo con [place] [address] CT Scan Report Signed Patient: Giselle Georges MR#: [id number] : 1960 Acct:[id number] Age/Sex: 61 / F ADM Date: 11/09/21 Loc: ER Room: Type: PRE ER Attending Dr: Copies to: Rm Heller APRN Ordering Provider: Rm Heller APRN Date of Service: 11/09/21 CT/CT facial bones wo con: dental infection w concern for sinus MAXILLOFACIAL CT WITHOUT CONTRAST: CLINICAL HISTORY: Left-sided facial edema. Patient has abscessed tooth and is on antibiotics COMPARISON: None TECHNIQUE: Spiral axial unenhanced images were obtained through the facial bones. Coronal and sagittal reconstructions were also reviewed. This CT exam was performed using one or more following dose reduction techniques: Automated exposure control, adjustment of the mA and/or kV according to patient size, or use of iterative reconstruction technique. FINDINGS: No facial bone fracture or bony destruction is identified. There is appropriate development and pneumatization of the paranasal sinuses. There is no mucosal thickening at both maxillary sinuses, greater on the left. There is a small amount of fluid within the right maxillary sinus. There are some opacified ethmoid air cells. The left ostiomeatal complex is obscured. The intraorbital contents are unremarkable. There is streak artifact from dental amalgam. Mild soft tissue swelling is present at the left cheek extending over the jaw to the upper neck where there is subcutaneous edema. There are submandibular lymph nodes, larger on the left measuring up to 9 mm in short axis dimension. There are some additional jugulodigastric and posterior triangle lymph nodes, also slightly larger on the left. No soft tissue abscess is identified. There is an empty socket where there may have been recent extraction of the first lower molar on the left. There is no other periapical lucency. CT/CT facial bones wo con IMPRESSION: SUGGESTION OF A RECENTLY EXTRACTED LOWER MOLAR ON THE LEFT. LEFT FACIAL SOFT TISSUE SWELLING, WITHOUT SOFT TISSUE ABSCESS. MILD ADENOPATHY, GREATER ON THE LEFT, PROBABLY REACTIVE. SINUS INFLAMMATION, DISCUSSED ABOVE. Impression dictated by: Angeles Bower M.D.11/09/2021 2:13 PM Dictation Location: [place] [address] Transcribed By: JAE 11/09/21 1413 Dictated By: Angeles Bower MD 11/09/21 1403 Signed By: 11/09/21 1413 Normal [facility] Basophils Auto (Bld) [#/Vol] Ordered By: Ken Ortiz on 10-04-2021 Basophils (Bld) [#/Vol] 0.0 10*3/uL 0.0-0.2 [facility] Basophils/100 WBC Auto (Bld) Ordered By: Ken Ortiz on 10-04-2021 Basophils/100 WBC (Bld) 0.7 % . [facility] Blood hemoglobin measurement (mass/volume)Ordered By: Ken Ortiz on 10-04-2021 Hemoglobin (Bld) [Mass/Vol] 14.6 g/dL 11.8-15.4 [facility] Blood leukocytes automated c ount (number/volume)Ordered By: Ken Ortiz on 10-04-2021 WBC (Bld) [#/Vol] 4.4 10*3/uL 4.5-11.0 [facility] Body fluid albumin measureme nt (mass/volume)Ordered By: Ken Ortiz on 10-04-2021 Albumin (Body fld) [Mass/Vol] 3.7 g/dL 3.2-5.5 [facility] C reactive protein [Mass/vol ume] in Serum or PlasmaOrdered By: Ken Ortiz on 10-04-2021 CRP [Mass/Vol] 0.6 mg/dL 0.0-1.0 [facility] Creatinine and Glomerular fi ltration rate.predicted panel (S/P/Bld)Ordered By: Ken Ortiz on 10-04-2021 Creatinine [Mass/Vol] 0.74 mg/dL 0.44-1.03 [facility] Elastase.pancreatic [Mass/ma ss] in StoolOrdered By: Ken Ortiz on 10-04-2021 Elastase.pancreatic (Stl) [Mass/Mass] >500 >200 [facility] Comment on above: Result Units: ug Luz st./g Severe Pancreatic Insufficiency: <100 Moderate Pancreatic Insufficiency: 100 - 200 Normal: >200 Performed at: [facility] [address] [id number] Adjustment Supervisor: Lamont Young MD, Phone: [phone] Eosinophils Auto (Bld) [#/Vo l]Ordered By: Ken Ortiz on 10-04-2021 Eosinophils (Bld) [#/Vol] 0.2 10*3/uL 0.0-0.45 [facility] Eosinophils/100 WBC Auto (Bl d)Ordered By: Ken Ortiz on 10-04-2021 Eosinophils/100 WBC (Bld) 5.2 % . [facility] Erythrocyte distribution wid th Auto (RBC) [Ratio]Ordered By: Ken Ortiz on 10-04-2021 Erythrocyte distribution width (RBC) [Ratio] 13.1 % 11.9-15.3 [facility] Erythrocyte sedimentation ra te by Photometric methodOrdered By: Ken Ortiz on 10-04-2021 ESR Photometric method (Bld) [Velocity] 5 mm/hr 0-29 [facility] Estimated glomerular filtrat ion rate (GFR) non- AmericanOrdered By: Ken Ortiz on 10-04-2021 GFR/1.73 sq M.predicted among non-blacks MDRD (S/P/Bld) [Vol rate/Area] > 60 mL/Min [facility] Globulin Calc (S) [Mass/Vol] Ordered By: Ken Ortiz on 10-04-2021 Globulin (S) [Mass/Vol] 2.5 g/dL [facility] Hematocrit Auto (Bld) [Volum e fraction]Ordered By: Ken Ortiz on 10-04-2021 Hematocrit (Bld) [Volume fraction] 43.7 % 34.0-46.4 [facility] IgA [Mass/volume] in Serum o r PlasmaOrdered By: Ken Ortiz on 10-04-2021 IgA [Mass/Vol] 168 mg/dL 87-352 [facility] Comment on above: Performed at: [address] [id number] Adjustment Supervisor: Kevin Sanders PhD, Phone: [phone] Laboratory - Hematology and Cell countsOrdered By: Ken Ortiz on 10-04-2021 Nucleated RBC/100 WBC (Bld) [Ratio] 0.0 % 0-0.5 [facility] Lymphocytes Auto (Bld) [#/Vo l]Ordered By: Ken Ortiz on 10-04-2021 Lymphocytes (Bld) [#/Vol] 1.5 10*3/uL 1.00-4.8 [facility] Lymphocytes/100 WBC Auto (Bl d)Ordered By: Ken Ortiz on 10-04-2021 Lymphocytes/100 WBC (Bld) 34.1 % . [facility] MCH Auto (RBC) [Entitic mass ]Ordered By: Ken Ortiz on 10-04-2021 MCH (RBC) [Entitic mass] 29.8 pg 24.7-34.3 [facility] MCHC Auto (RBC) [Mass/Vol]Or dered By: Ken Ortiz on 10-04-2021 MCHC (RBC) [Mass/Vol] 33.5 g/dL 32.0-35.0 [facility] MCV Auto (RBC) [Entitic vol] Ordered By: Ken Ortiz on 10-04-2021 MCV (RBC) [Entitic vol] 88.9 fL 80-100 [facility] Monocytes Auto (Bld) [#/Vol] Ordered By: Ken Ortiz on 10-04-2021 Monocytes (Bld) [#/Vol] 0.4 10*3/uL 0.0-0.8 [facility] Monocytes/100 WBC Auto (Bld) Ordered By: Ken Ortiz on 10-04-2021 Monocytes/100 WBC (Bld) 8.1 % . [facility] Neutrophils Auto (Bld) [#/Vo l]Ordered By: Ken Ortiz on 10-04-2021 Neutrophils (Bld) [#/Vol] 2.3 10*3/uL 1.8-7.7 [facility] Neutrophils/100 WBC Auto (Bl d)Ordered By: Ken Ortiz on 10-04-2021 Neutrophils/100 WBC (Bld) 51.9 % . [facility] No Panel InformationOrdered By: Ken Ortiz on 10-04-2021 Endomysial IgA Antibody Negative Negative [facility] Estimated GFR () > 60 mL/Min [facility] Comment on above: GFR estimated refere nce range: According to KDOQI guidelines, <60 ml/min/1.73m2 is sufficient to diagnose a patient with chronic kidney disease. Pharmacy Creatinine Clearance (Chem N/A [facility] Platelet mean volume Auto (B ld) [Entitic vol]Ordered By: Ken Ortiz on 10-04-2021 Platelet mean volume (Bld) [Entitic vol] 9.2 fL 6.3-10.7 [facility] Platelets Auto (Bld) [#/Vol] Ordered By: Ken Ortiz on 10-04-2021 Platelets (Bld) [#/Vol] 286 10*3/uL 150-450 [facility] Protein [Mass/volume] in Ser um or PlasmaOrdered By: Ken Ortiz on 10-04-2021 Protein [Mass/Vol] 6.2 g/dL 6.1-7.9 [facility] RBC Auto (Bld) [#/Vol]Ordere d By: Ken Ortiz on 10-04-2021 RBC (Bld) [#/Vol] 4.92 10*6/uL 3.60-5.00 [facility] Serum gliadin peptide IgA an tibody assay (units/volume)Ordered By: Ken Ortiz on 10-04-2021 Gliadin peptide IgA Qn (S) 4 units 0-19 [facility] Comment on above: Negative 0 - 19 Weak Positive 20 - 30 Moderate to Strong Positive >30 Serum gliadin peptide IgG an tibody assay (units/volume)Ordered By: Ken Ortiz on 10-04-2021 Gliadin peptide IgG Qn (S) 2 units 0-19 [facility] Comment on above: Negative 0 - 19 Weak Positive 20 - 30 Moderate to Strong Positive >30 Serum or plasma alanine reyna otransferase measurement without P-5'-P (enzymatic activiOrdered By: Ken Ortiz on 10-04-2021 ALT No additional P-5'-P [Catalytic activity/Vol] 16 U/L 10-60 [facility] Serum or plasma albumin/glob ulin mass ratioOrdered By: Ken Ortiz on 10-04-2021 Albumin/Globulin [Mass ratio] 1.5 {ratio} [facility] Serum or plasma alkaline raphael sphatase measurement (enzymatic activity/volume)Ordered By: Ken Ortiz on 10-04-2021 ALP [Catalytic activity/Vol] 55 U/L 32-92 [facility] Serum or plasma aspartate am inotransferase measurement (enzymatic activity/volume)Ordered By: Ken Ortiz on 10-04-2021 AST [Catalytic activity/Vol] 18 U/L 10-42 [facility] Serum or plasma calcium shellie urement (mass/volume)Ordered By: Ken Ortiz on 10-04-2021 Calcium [Mass/Vol] 9.7 mg/dL 8.2-10.2 [facility] Serum or plasma chloride isidro surement (moles/volume)Ordered By: Ken Ortiz on 10-04-2021 Chloride [Moles/Vol] 101 mmol/L 95-114 [facility] Serum or plasma glucose shellie urement (mass/volume)Ordered By: Ken Ortiz on 10-04-2021 Glucose [Mass/Vol] 85 mg/dL 70-100 [facility] Comment on above: ADA recommended refe rence range Random Glucose Reference Range is dependent on time and content of last meal. Glucose of more than 200 mg/dL in a nonstressed, ambulatory subject supports the diagnosis of Diabetes Mellitus. Serum or plasma potassium me asurement (moles/volume)Ordered By: Ken Ortiz on 10-04-2021 Potassium [Moles/Vol] 4.4 mmol/L 3.5-5.1 [facility] Serum or plasma sodium measu rement (moles/volume)Ordered By: Ken Ortiz on 10-04-2021 Sodium [Moles/Vol] 138 mmol/L 136-146 [facility] Serum or plasma total biliru bin measurement (mass/volume)Ordered By: Ken Ortiz on 10-04-2021 Bilirubin [Mass/Vol] 0.5 mg/dL 0.3-1.2 [facility] Serum or plasma total carbon dioxide measurement (moles/volume)Ordered By: Ken Ortiz on 10-04-2021 CO2 [Moles/Vol] 30.4 mmol/L 22.0-30.0 [facility] Serum or plasma urea nitroge n measurement (mass/volume)Ordered By: Ken Ortiz on 10-04-2021 Urea nitrogen [Mass/Vol] 13 mg/dL 9-23 [facility] Serum tissue transglutaminas e (tTG) IgA antibody assay (units/volume)Ordered By: Ken Ortiz on 10-04-2021 tTG IgA Qn (S) <2 U/mL 0-3 [facility] Comment on above: Negative 0 - 3 Weak Positive 4 - 10 Positive >10 Tissue Transglutaminase (tTG) has been identified as the endomysial antigen. Studies have demonstr- ated that endomysial IgA antibodies have over 99% specificity for gluten sensitive enteropathy. Serum tissue transglutaminas e (tTG) IgG antibody assay (units/volume)Ordered By: Ken Ortiz on 10-04-2021 tTG IgG Qn (S) <2 U/mL 0-5 [facility] Comment on above: Negative 0 - 5 Weak Positive 6 - 9 Positive >9 Vital Signs Date Time Vital Sign Value Performing Clinician Facility 07-31-2023 08:37-0400 Body height 152.4 cm [facility] 07-31-2023 08:37-0400 Body mass index (BMI) [Ratio] 27.3 kg/m2 [facility] 07-31-2023 08:37-0400 Body weight 63.5 kg [facility] 07-31-2023 08:37-0400 Diastolic blood pressure 77 mm[Hg] [facility] 07-31-2023 08:37-0400 Heart rate 71 /min [facility] 07-31-2023 08:37-0400 SaO2% (BldA) [Mass fraction] 99 % [facility] 07-31-2023 08:37-0400 Systolic blood pressure 136 mm[Hg] [facility] 07-11-2023 10:22-0400 Body height 152.4 cm [facility] 07-11-2023 10:22-0400 Body mass index (BMI) [Ratio] 28.2 kg/m2 [facility] 07-11-2023 10:22-0400 Body weight 65.48 kg [facility] 07-11-2023 10:22-0400 Diastolic blood pressure 81 mm[Hg] [facility] 07-11-2023 10:22-0400 Heart rate 67 /min [facility] 07-11-2023 10:22-0400 Systolic blood pressure 146 mm[Hg] [facility] 05-08-2023 14:36-0500 Body height 152.4 cm Paul Visci DO Work Phone: [facility] 05-08-2023 14:36-0500 Body mass index (BMI) [Ratio] 28.32 kg/m2 Paul Visci DO Work Phone: [facility] 05-08-2023 14:36-0500 Body weight 65.77 kg Paul Visci DO Work Phone: [facility] 05-08-2023 14:36-0500 Diastolic blood pressure 84 mm[Hg] Paul Visci DO Work Phone: [facility] 05-08-2023 14:36-0500 Systolic blood pressure 124 mm[Hg] Paul Visci DO Work Phone: [facility] 04-24-2023 10:05-0500 Body mass index (BMI) [Ratio] 28.55 kg/m2 Alice Polo DO Work Phone: [facility] 04-24-2023 10:05-0500 Body weight 66.32 kg Alice Luna-Southampton DO Work Phone: [facility] 04-24-2023 10:05-0500 Diastolic blood pressure 64 mm[Hg] Alice Luna-Southampton DO Work Phone: [facility] 04-24-2023 10:05-0500 Heart rate 64 /min Alice Luna-Southampton DO Work Phone: [facility] 04-24-2023 10:05-0500 SaO2% (BldA) [Mass fraction] 98 % Alice Luna-Southampton DO Work Phone: [facility] 04-24-2023 10:05-0500 Systolic blood pressure 112 mm[Hg] Alice Luna-Southampton DO Work Phone: [facility] 12-09-2022 10:00-0400 Body height 152.4 cm Gabe Gonzalez Other [facility] Other 12-09-2022 10:00-0400 Body mass index (BMI) [Ratio] 32.22 kg/m2 Gabe Gonzalez Other [facility] Other 12-09-2022 10:00-0400 Body weight 74.84 kg Gabe Gonzalez Other [facility] Other 12-09-2022 10:00-0400 Diastolic blood pressure 81 mm[Hg] Gabe Gonzalez Other [facility] Other 12-09-2022 10:00-0400 Systolic blood pressure 129 mm[Hg] Gabe Scovanner Other [facility] Other 09-03-2022 13:50-0400 Diastolic blood pressure 79 mm[Hg] DO Alice Luna-Southampton Work Phone: [facility] 09-03-2022 13:50-0400 Heart rate 56 /min DO Alice Luna-Southampton Work Phone: [facility] 09-03-2022 13:50-0400 SaO2% (BldA) [Mass fraction] 100 % DO Alice Luna-Southampton Work Phone: [facility] 09-03-2022 13:50-0400 Systolic blood pressure 125 mm[Hg] DO Alice Luna-Southampton Work Phone: [facility] 09-03-2022 12:25-0400 Body height 152.4 cm DO Alice Luna-Southampton Work Phone: [facility] 09-03-2022 12:25-0400 Body temperature 97.9 [degF] DO Alice Luna-Southampton Work Phone: [facility] 09-03-2022 12:25-0400 Body weight 72.12 kg DO Alice Luna-Southampton Work Phone: [facility] 09-03-2022 12:25-0400 Respiratory rate 16 /min DO Alice Luna-Southampton Work Phone: [facility] 05-02-2022 20:00-0500 Diastolic blood pressure 86 mm[Hg] DO Alice Luna-Southampton Work Phone: [facility] 05-02-2022 20:00-0500 Heart rate 66 /min DO Alice Luna-Southampton Work Phone: [facility] 05-02-2022 20:00-0500 Respiratory rate 20 /min DO Alice Luna-Southampton Work Phone: [facility] 05-02-2022 20:00-0500 SaO2% (BldA) [Mass fraction] 99 % DO Alice Luna-Southampton Work Phone: [facility] 05-02-2022 20:00-0500 Systolic blood pressure 137 mm[Hg] DO Alice Luna-Southampton Work Phone: [facility] 05-02-2022 16:29-0500 Body height 152.4 cm DO Alice Luna-Southampton Work Phone: [facility] 05-02-2022 16:29-0500 Body temperature 97.5 [degF] DO Alice Luna-Southampton Work Phone: [facility] 05-02-2022 16:29-0500 Body weight 72.12 kg DO Alice Luna-Southampton Work Phone: [facility] 11-09-2021 13:34-0400 Body height 152.4 cm DO Alice Luna-Southampton Work Phone: [facility] 11-09-2021 13:34-0400 Body temperature 98 [degF] DO Alice Luna-Southampton Work Phone: [facility] 11-09-2021 13:34-0400 Body weight 71 kg DO Alice Luna-Southampton Work Phone: [facility] 11-09-2021 13:34-0400 Diastolic blood pressure 80 mm[Hg] DO Alice Luna-Southampton Work Phone: [facility] 11-09-2021 13:34-0400 Heart rate 78 /min DO Alice Luna-Southampton Work Phone: [facility] 11-09-2021 13:34-0400 Respiratory rate 18 /min DO Alice Luna-Southampton Work Phone: [facility] 11-09-2021 13:34-0400 SaO2% (BldA) [Mass fraction] 97 % DO Alice Luna-Southampton Work Phone: [facility] 11-09-2021 13:34-0400 Systolic blood pressure 187 mm[Hg] DO Alice Luna-Southampton Work Phone: [facility] 12-20-2020 14:15-0400 Body height 152.4 cm Ken Ortiz Other [facility] [address] Other 12-20-2020 14:15-0400 Body mass index (BMI) [Ratio] 31.05 kg/m2 Ken Ortiz Other [facility] [address] Other 12-20-2020 14:15-0400 Body weight 72.12 kg Ken Ortiz Other [facility] [address] Other Encounters Encounter Date Encounter Type Care Provider Facility Start: 07-31-2023 End: 07-31-2023 ambulatory [facility] Work Phone: Start: 07-31-2023 End: 07-31-2023 Patient encounter procedure [facility] Physician [facility] Work Phone: Start: 07-16-2023 End: 07-16-2023 ambulatory PAUL A VISCI Not Available Start: 07-11-2023 End: 07-11-2023 ambulatory [facility] Work Phone: Start: 07-11-2023 End: 07-11-2023 Patient encounter procedure [facility] Physician [facility] Work Phone: Start: 06-09-2023 End: 06-10-2023 ambulatory RAQUEL L DIDION Not Available Start: 06-02-2023 End: 06-02-2023 ambulatory PAUL A VISCI Not Available Start: 05-08-2023 End: 05-08-2023 ambulatory PAUL A VISCI Not Available Start: 05-08-2023 End: 05-08-2023 Office outpatient visit 15 minutes Paul A Visci DO Work Phone: [facility] Comment on above: Body mass index (BMI ) 28.0-28.9, adult; Abnormal weight gain; Yeast infection; BMI 29.0-29.9,adult Start: 04-24-2023 End: 04-24-2023 ambulatory ALICE POLO Not Available Start: 04-24-2023 End: 04-24-2023 Patient encounter status Alice Polo DO Work Phone: [facility] Work Phone: Start: 04-24-2023 End: 04-24-2023 Periodic preventive med est patient 40-64yrs Alice Polo DO Work Phone: [facility] Comment on above: Encounter for preven tative adult health care examination (Primary Dx); Arthritis, lumbar spine; Depression, major, in remission (HCC) ([facility]/HCC); Gastroesophageal reflux disease without esophagitis; Postmenopausal; Hormone replacement therapy; Class 1 obesity Start: 03-31-2023 End: 03-31-2023 ambulatory PAUL A VISCI Not Available Start: 03-06-2023 End: 03-06-2023 ambulatory PAUL A VISCI Not Available Start: 02-06-2023 End: 02-06-2023 ambulatory PAUL A VISCI Not Available Start: 12-09-2022 End: 12-09-2022 ambulatory Gabe Gonzalez Other [facility] Other Start: 12-09-2022 Office outpatient visit 15 minutes Gabe Gonzalez [facility] G[facility] Start: 09-26-2022 End: 09-26-2022 ambulatory Alix Perez Facility:[facility] [place] Start: 09-26-2022 End: 09-26-2022 ambulatory DO Alice Polo Work Phone: [facility] Work Phone: Start: 09-26-2022 End: 09-26-2022 Patient encounter procedure DO Alice Polo Work Phone: [facility] Work Phone: Start: 09-04-2022 End: 09-04-2022 ambulatory Edison Monroe Other [facility] Other Start: 09-04-2022 Telephone encounter Edison HAHN [facility] Start: 09-03-2022 End: 09-03-2022 ambulatory Alice Jeremy-Southampton Facility:[facility] [place] Start: 09-03-2022 End: 09-03-2022 Admission to same day surgery center DO Alice Luna-Southampton Work Phone: [facility] Work Phone: Start: 08-29-2022 ambulatory ALICE JEREMY FERRER Fac ility:[facility] Start: 06-25-2022 End: 06-25-2022 ambulatory Ken Mendez Facility:[facility] [place] Start: 06-12-2022 End: 06-12-2022 ambulatory Ken Mendez Facility:[facility] [place] Start: 06-12-2022 End: 06-12-2022 ambulatory DO Alice Luna-Southampton Work Phone: [facility] Work Phone: Start: 06-12-2022 End: 06-12-2022 Patient encounter procedure DO Alice Luna-Southampton Work Phone: [facility] Work Phone: Start: 05-30-2022 End: 05-31-2022 ambulatory ALICE FERRER Facility:[facility] Start: 05-21-[address] Alice Polo Facility:[facility] Start: 05-14-2022 End: 05-14-2022 ambulatory ALICE JEREMY FERRER Facility: Start: 05-10-[address] Alice Polo Facility:[id number] Start: 05-07-2022 End: 05-07-2022 ambulatory Alice Jeremy-Nabil Facility:[facility] [place] Start: 05-07-2022 End: 05-07-2022 ambulatory DO Alice Luna-Southampton Work Phone: [facility] Work Phone: Start: 05-07-2022 End: 05-07-2022 Patient encounter procedure DO Alice Luna-Southampton Work Phone: [facility] Work Phone: Start: 05-02-2022 End: 05-02-2022 Emergency department patient visit Oswaldo Deleon Facility:[facility] [place] Start: 05-02-2022 End: 05-02-2022 Emergency department patient visit DO Alice Luna-Nabil Work Phone: [facility] Work Phone: Start: 05-02-2022 End: 05-03-2022 ambulatory ALICE LUNA EMERY Facility:[facility] Start: 04-16-2022 End: 04-16-2022 ambulatory ALICE LUNA EMERY Facility:[facility] Start: 02-07-2022 End: 02-08-2022 ambulatory ALICE LUNA EMERY Facility:[facility] Start: 11-15-2021 End: 11-16-2021 ambulatory JONI MAHMOOD . Facility:[facility] Start: 11-09-2021 End: 11-09-2021 Emergency department patient visit Rm Pina Facility:[facility] [place] Start: 11-09-2021 End: 11-09-2021 Emergency department patient visit DO Alice Luna-Nabil Work Phone: [facility] Start: 10-16-2021 End: 10-16-[address] ARNAV COREA . Facility:[facility] Start: 10-11-2021 End: 10-11-2021 ambulatory Ken Ortiz Other [facility] Other Start: 10-11-2021 Telephone encounter Ken Ortiz [facility] Start: 10-04-2021 End: 10-04-2021 Patient encounter procedure DO Alice Luna-Southampton Work Phone: [facility] [place] Start: 10-03-2021 End: 10-03-2021 ambulatory Ken Ortiz Other [facility] Other Start: 10-03-2021 Telephone encounter Ken Ortiz [facility] Gastroenterology Start: 09-20-2021 End: 09-21-2021 ambulatory JONI MAHMOOD . Facility: Start: 02-26-2021 End: 02-26-2021 ambulatory Ken Ortiz Other [facility] Other Start: 02-26-2021 Telephone encounter Ken Ronaldokaveh [facility] Gastroenterology Start: 12-20-2020 Office outpatient visit 25 minutes Ken Ronaldokaveh [facility] Gastroenterology Procedures Date Procedure Procedure Detail Performing Clinician Start: 12-23-2022 Mammography Alice Luna-Nabil DO Work Phone: Start: 09-03-2022 Esophagogastroduodenoscopy DO Alice Luna-Southampton Work Phone: Start: 05-02-2022 Plain chest X-ray DO Alice Jeremy-Southampton Work Phone: Start: 11-09-2021 CT of facial bones without contrast DO S love Luna-Southampton Work Phone: Start: 12-29-2020 Colonoscopy Alice Luna-Southampton DO Work Phone: Plan of Treatment Date Care Activity Detail Author Start: 12-29-2030 Screening for malignant neoplasm of colon [facility] Start: 04-27-2024 End: 04-27-2024 Patient encounter procedure 04/27/2024 10:00 AM EST Office Visit [facility] [address] [place] [id number] Alice Polo, DO [address] [place] [address] [facility] Start: 12-24-2023 Screening for malignant neoplasm of breast Mammogram [facility] Start: 04-28-2023 End: 04-28-2023 Patient encounter procedure 04/28/2023 9:30 AM EST Office Visit [facility] [address] [place] [id number] Nighat Paul Thakur, DO [address] [place] [address] BMI 29.0-29.9,adult [facility] Comment on above: BMI 29.0-29.9,adult Start: 09-03-2022 [facility] [place] Start: 1960 Screening for malignant neoplasm of colon [facility] Patient Education [facility] Work Phone: Patient referral [facility] Work Phone: Immunizations Immunization Date Immunization Notes Care Provider Fa cility 12-25-2022 RSV, recombinant, protein subunit RSVpreF, adjuvant reconstitu, 120mcg/0.5mL, PF (Arexvy) Alice Luna-Southampton DO Work Phone: [facility] 05-28-2021 zoster vaccine recombinant Alice Luna-Southampton DO Work Phone: [facility] 02-07-2021 zoster vaccine recombinant Alice Luna-Southampton DO Work Phone: [facility] 06-29-2020 COVID-19 mRNA, Comirnaty (Pfizer) DO Alice Luna-Southampton Work Phone: [facility] [place] 06-09-2020 COVID-19 mRNA, Comirnaty (Pfizer) DO Alice Luna-Southampton Work Phone: [facility] [place] 06-29-2015 tetanus toxoid, redu yoselin diphtheria toxoid, and acellular pertussis vaccine, adsorbed Alice Luna-Southampton DO Work Phone: [facility] Payers Date Payer Category Payer Self-pay [id number] 2020 Medicaid [employer] [place] [id number] 2020-Present [address] [place] [address] [id number]. [id number] 1960 Unknown [id number] 2.16.840.1.427069.3.579.2. 356 1962 Unknown [id number] 2.16.840.1.864562.3.579.2. 593 1962 Unknown [id number] 2.16.840.1.972665.3.579.2. 593 1962 Unknown [id number] 2.16.840.1.723691.3.579.2. 593 1962 Unknown [id number] 2.16.840.1.243634.3.579.2. 593 1962 Unknown [id number] 2.16.840.1.426414.3.579.2. 593 1962 Unknown [id number] 2.16.840.1.445706.3.579.2. 593 1962 Unknown [id number] 2.16.840.1.273849.3.579.2. 593 1962 Unknown [id number] 2.16.840.1.139995.3.579.2. 593 1962 Unknown [id number] 2.16.840.1.592485.3.579.2. 593 1962 Unknown [id number] 2.16.840.1.882147.3.579.2. 593 1962 Unknown [id number] 2.16.840.1.915050.3.579.2. 593 1962 Unknown [id number] 2.16.840.1.421905.3.579.2. 1259 1962 Unknown [id number] 2.16.840.1.330014.3.579.2. 1259 1962 Unknown [id number] 2.16.840.1.807651.3.579.2. 1259 1962 Unknown [id number] 2.16.840.1.805310.3.579.2. 1258 1962 Unknown [id number] 2.16.840.1.503035.3.579.2. 1258 1962 Unknown [id number] 2.16.840.1.931729.3.579.2. 1258 1962 Unknown [id number] 2..840.1.418207.3.579.2. 1258 1962 Unknown [id number] 2..840.1.844529.3.579.2. 1258 1962 Unknown [id number] 2.840.1.023853.3.579.2. 9 1959 Medicaid [id number] 1959 Unknown [id number] .840.1.755739.19 Private Health Insurance [id number] Unknown [place] BC/BS [id number] Unknown HCAP/HFA/FAP Active [id number] Unknown [id number] 2.840.1.272584.3.579.2. 531 Unknown [id number] 2.840.1.443867.3.579.2. 531 Unknown [id number] 2.840.1.915068.3.579.2. 531 Unknown [id number] 2.840.1.149485.3.579.2. 531 Unknown [id number] 2.840.1.112000.3.579.2. 531 Unknown [id number] 2.840.1.470543.3.579.2. 531 Unknown [id number] 2.16.840.1.433496.3.579.2. 531 Social History Date Type Detail Facility Start: 04-24-2023 End: 05-05-2023 Sex Assigned At [facility] Work Phone: Start: 11-09-2021 Tobacco smoking stat us [facility] Never smoked tobacco (finding) [facility] [place] Start: 1960 Sex Assigned At Female F [facility] Start: 05-02-2022 End: 09-03-2022 Tobacco smoking status CTIS Ex-smoker (finding) [facility] [place] End: 03-24-2012 History of tobacco use Current smoker [facility] End: 03-24-2012 History of tobacco use Cigarette Smoker [facility] Start: 01-08-2023 Tobacco use and exposure Smokeless tobacco non-user [facility] Start: 04-27-2023 End: 05-05-2023 Alcohol intake Current drinker of alcohol (finding) [facility] Start: 04-24-2023 End: 05-05-2023 History of Social function [facility] Work Phone: How often to you hav e a drink containing alcohol? 2-3 time sa week [facility] Work Phone: How many standard drinks containing alcohol do you have on a typical day? 1 or 2 [facility] How often do you hav e 6 or more drinks on 1 occasion? Never [facility] Start: 04-24-2023 Alcohol Comment Once a week [facility] Start: 12-04-2022 Gender identity Identifies as female gender (finding) [facility] Medical Equipment Procedure Code Equipment Code Equipment Origin al Text Equipment Identifier Dates Tendon repair Tendon/ligament bone anchor, non-bioabsorbable ([id number] [facility] Start: 12-10-2018 Goals Date Patient Goal Desired Activity /State Clinical Notes 12-20-2020 to 05-08-2023 Paul Mcgrath, DO - 05/08/2023 2:30 PM Myrtle Polo, DO - 04/27/2023 6:53 PM Myrtle Keven Polo, DO - 04/27/2023 6:52 PM Yanra Keven Polo, DO - 04/27/2023 6:51 PM EST Note Date & Type Note Facility 05-08-2023 History of Presen t illness Narrative Images from the original note were not included. Subjective Giselle Georges is a 62 y.o. female Chief Complaint Patient presents with Weight Management Pt is taking Adipex. Pt is doing well. Vaginitis/Bacterial Vaginosis Pt would like a script for diflucan, states she has a yeast infection. Pt did not want an exam today. Current Outpatient Medications: baclofen (Lioresal) 5 MG tablet, Take 5 mg by mouth as needed at bedtime, Disp: , Rfl: CeleBREX 200 MG capsule, Take 200 mg by mouth Daily as needed., Disp: , Rfl: citalopram (CeleXA) 20 MG tablet, Take 1 tablet (20 mg) by mouth in the morning., Disp: 90 tablet, Rfl: 3 clobetasol (Temovate) 0.05 % cream, Apply topically 2 (two) times a day., Disp: , Rfl: estradiol (Estrace) 0.5 MG tablet, Take 1 tablet (0.5 mg) by mouth in the morning., Disp: 90 tablet, Rfl: 3 fluticasone (Flonase) 50 MCG/ACT nasal spray, Administer 1 spray into each nostril in the morning., Disp: , Rfl: pantoprazole (ProtoNix) 40 MG EC tablet, Take 40 mg by mouth in the morning and 40 mg before bedtime., Disp: , Rfl: phentermine (Adipex-P) 37.5 MG tablet, Take 1 tablet (37.5 mg) by mouth in the morning. Take before meals., Disp: 30 tablet, Rfl: 0 Past Medical History: Diagnosis Date 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 Arthritis, lumbar spine Depression with anxiety Exercise-induced asthma (CMS/HCC) Had PFTs 2012 Fibrocystic breast Genitourinary syndrome of menopause GERD (gastroesophageal reflux disease) EGD 09/06/[address] Monroe (No esophagitis, but evidence of acid exposure. Dr Monroe recommends increasing PPI to BID) History of skin cancer Lichen sclerosus Neuroma of face Neuroma right lower face - partially excised- [address] Méndez Obesity (BMI 30.0-34.9) PVC (premature ventricular contraction) History of PVCs Past Surgical History: Procedure Laterality Date AMB EPIDURAL STEROID INJECTION 04/28/2020 Lumbar cortisone injection per Dr. Corea (Pain management) AMB EPIDURAL STEROID INJECTION Bilateral 04/16/2022 Cortisone Injection, Bilateral SI joints; Done per Dr. Corea SECTION, LOW TRANSVERSE x3 CHOLECYSTECTOMY 2009 Dr. Lee - Date approx. per pt. COLONOSCOPY 12/29/2020 Normal EGD 10/31/2015 EGD/[place] done by Dr. Ortiz (stenosis of upper esoph sphincter and small polyp of sigmoid colon) EGD 12/29/2020 EGD with esoph dilation (d/t esoph spasms) - Done by Dr. Ortiz FINGER SURGERY Left 04/27/2018 Left thumb surgery - Dr. Landaverde (due to OA) FINGER SURGERY Left 12/10/2018 Left thumb reconstruction / Dr. Bearden HYSTERECTOMY 2007 TV[facility], ovaries spared - Disease: Mennorhagia adenomyosis HYSTEROSCOPY 2003 Hysteroscopy, D&C ablation, diag lap - Disease: Menorrhagia (Dr. Mcgrath) IR ABLATION NERVE Bilateral 2020 Lumbar never ablation per Dr. Corea (Pain management) 09/2020 and 10/2020 IR ABLATION NERVE Bilateral 01/2022 Bilateral lumbar nerve ablationl; done per Dr. Corea IR ABLATION NERVE Right IR FACET BLOCK LUMBAR SACRAL FIRST LEVEL BILATERAL 11/26/2022 4/5, 5/sacral 1 medial branch block NEUROMA SURGERY Right 2013 Vestibular neuroma removed from rt. cheek per Dr. Méndez PELVIC LAPAROSCOPY Laparoscopy for pelvic pain (Dr. Smith) - 20's RADIOFREQUENCY ABLATION Right 01/28/2023 Lumbar 4/5 and L5/S1. Done by Dr Maldonado RHIZOTOMY W/ RADIOFREQUENCY ABLATION Left 01/07/2023 L4/5 and L5/S1 done [address] Dr Maldonado TONSILLECTOMY [address] Ba WISDOM TOOTH EXTRACTION 1981 [place] teeth impacted Family History Problem Relation Name Age of Onset Depression Mother Michela Garrett,Ken Garrett(father), Ronni Garrett (b Hyperthyroidism Mother Ken Sparrow(father), Ronni Tami (b Osteoporosis Mother Michela Garrett,Ken Garrett(father), Ronni Garrett (b Osteoarthritis Mother Michela Garrett,Ken Garrett(father), Ronni Garrett (b Stroke Mother Michela Garrett,Ken Garrett(father), Ronni Garrett (b Alcohol abuse Father KEN GARRETT Other (brain tumor) Father KEN GARRETT benign brain tumor with shunt due to hydrocephalus Asthma Father KEN GARRETT Heart failure Brother Ronni Garrett CHF Coronary artery disease Brother Ronni Garrett 48 Atrial fibrillation Brother Ronni Garrett 48 Depression Brother Ronni Garrett Severe Depression Heart attack Paternal Grandfather Acute [place] No Known Problems Daughter Healthy Ulcerative colitis Son Melanoma Neg Hx OB History Para Term AB Living 3 3 0 0 0 3 SAB IAB Ectopic Multiple Live Births 0 0 0 0 3 # Outcome Date GA Lbr Indio/2nd Weight Sex Delivery Anes PTL Lv 3 Para 2 Para 1 Para Obstetric Comments Pap 05-21-21, Neg. Neg. 09-02-18, Neg. Tamika 12-23-2022 Neg., Tamika -12-06-21, Neg. ([facility]) Colonoscopy 12-29-2020 Neg. Review of Systems All negative unless documented in treatment Objective Visit Vitals BP 124/84 Ht 5' Wt 145 lb LMP (LMP Unknown) BMI 28.32 kg/m OB Status Hysterectomy Smoking Status Former BSA 1.67 m Allergies Allergen Reactions Sulfa Antibiotics Hives and Rash Other Reaction(s): hives Physical Exam Constitutional: Appearance: Normal appearance. HENT: Head: Normocephalic and atraumatic. Eyes: General: No scleral icterus. Cardiovascular: Rate and Rhythm: Normal rate and regular rhythm. Heart sounds: Normal heart sounds. No murmur heard. Pulmonary: Effort: Pulmonary effort is normal. Breath sounds: Normal breath sounds. Musculoskeletal: Right lower leg: No edema. Left lower leg: No edema. Neurological: General: No focal deficit present. Mental Status: She is alert and oriented to person, place, and time. Skin: General: Skin is warm and dry. Findings: No rash. Psychiatric: Mood and Affect: Mood normal. Behavior: Behavior normal. Vitals and nursing note reviewed. Procedures ICD-10-CM 1. Body mass index (BMI) 28.0-28.9, adult Z68.28 2. Abnormal weight gain R63.5 3. Yeast infection B37.9 Doing well on adipex. Denies significant side-effects. 2 lb. weight loss this month. Total loss 20 lbs. In 5 months. Overall goal is to weigh 135 lbs. Advised calorie restriction, avoiding simple carbohydrates and making healthy lifestyle changes. Keep food diary or use diet ijeoma. Try for at least 30 minutes of aerobic exercise 3-4x/wk. OARRS reviewed, no concerns. Has symptoms of yeast vaginitis-Rx diflucan. documented in this encounter [facility] 04-27-2023 History of Presen t illness Narrative Associated Problem(s): Gastroesophageal reflux disease without esophagitis -Pt advised to avoid food triggers and follow conservative management measures (including avoiding tight fitting pants, weight management, and elevating HOB as indicated) to keep GERD symptoms under control. -Dietary modifications that can help with symptom management include: Eat smaller, more frequent meals rather than large one. Avoid food or liquids for 2-3 hours before lying down (no bedtime snacks!) Avoid or limit the following: Caffeinated products: coffee, tea, sodas, chocolate Red sauces and salsa Fatty, fried, or greasy foods Citric juices: orange, grapefruit Spicy foods Mints: peppermint, spearmint Alcohol -Take medications as recommended and monitor for alarm symptoms . Associated Problem(s): Depression, major, in remission (HCC) ([facility]/HCC) -Pt is doing well at this time on current dose of celexa. Based on review of patient's medications and current medical status; continuation of medications most appropriate. Compliance with medications and/or management recommendations encouraged. Monitor Associated Problem(s): Class 1 obesity -She has been making lifestyle changes and has been able to lose weight and BMI is now <30. She will continue to work on these changes. -Discussed being able to continue this medication with possibility of reducing the dose down the road for maintenance. Images from the original note were not included. Subjective Patient ID: Giselle Georges (: 1960) is a 62 y.o. female who presents for Annual Adult Preventive Visit. HPI : Giselle is being seen today for her annual adult preventive visit with Dr. Luna. ---- Pt.'s lab results from 03/2022 are documented in EHR for reference. ---- Pt.'s Care Gaps show she is up to date on all recommended screenings and vaccinations. Current Outpatient Medications Medication Instructions baclofen (LIORESAL) 5 mg, Oral, Nightly PRN CeleBREX 200 mg, Oral, Daily PRN citalopram (CELEXA) 20 mg, Oral, Daily clobetasol (Temovate) 0.05 % cream Topical, 2 times daily estradiol (ESTRACE) 0.5 mg, Oral, Daily fluticasone (Flonase) 50 MCG/ACT nasal spray 1 spray, Each Nostril, Daily pantoprazole (PROTONIX) 40 mg, Oral, 2 times daily phentermine (ADIPEX-P) 37.5 mg, Oral, Daily before breakfast Allergies Allergen Reactions Sulfa Antibiotics Hives and Rash Other Reaction(s): hives Patient Active Problem List Diagnosis Class 1 obesity Exercise-induced asthma ([facility]) Arthritis, lumbar spine Gastroesophageal reflux disease without esophagitis Postmenopausal Depression, major, in remission (HCC) ([facility]) Hormone replacement therapy Review of Systems Constitutional: Negative for activity change, appetite change, fatigue and unexpected weight change. HENT: Negative for ear pain, hearing loss, postnasal drip, sinus pain, trouble swallowing and voice change. Eyes: Negative for photophobia, pain and visual disturbance. Respiratory: Negative for cough, shortness of breath and wheezing. Cardiovascular: Negative for chest pain, palpitations and leg swelling. Gastrointestinal: Negative for abdominal distention, abdominal pain, blood in stool and nausea. Genitourinary: Negative for difficulty urinating, dysuria and hematuria. Musculoskeletal: Positive for arthralgias and back pain. Negative for gait problem and joint swelling. Skin: Negative for rash and wound. Neurological: Negative for dizziness, tremors, speech difficulty, weakness, numbness and headaches. Psychiatric/Behavioral: Negative for confusion, decreased concentration, hallucinations and sleep disturbance. Endocrine: Negative for polydipsia, polyphagia and polyuria. Allergic/Immunologic: Negative for immunocompromised state. Objective Vital signs: BP 112/64 Pulse 64 Wt 146 lb 3.2 oz LMP (LMP Unknown) SpO2 98% BMI 28.55 kg/m She has lost ~20# since starting phentermine 11/2022 No results found for this or any previous visit (from the past 2016 hour(s)). Physical Exam Constitutional: General: She is not in acute distress. Appearance: Normal appearance. HENT: Head: Normocephalic. Eyes: General: No scleral icterus. Extraocular Movements: Extraocular movements intact. Conjunctiva/sclera: Conjunctivae normal. Neck: Vascular: No carotid bruit. Cardiovascular: Rate and Rhythm: Normal rate and regular rhythm. Heart sounds: No murmur heard. Pulmonary: Effort: Pulmonary effort is normal. No respiratory distress. Breath sounds: Normal breath sounds. No wheezing or rhonchi. Musculoskeletal: General: No swelling. Normal range of motion. Cervical back: Normal range of motion. Skin: General: Skin is warm and dry. Coloration: Skin is not jaundiced. Findings: No rash. Neurological: General: No focal deficit present. Mental Status: She is alert and oriented to person, place, and time. Motor: No weakness. Gait: Gait normal. Psychiatric: Mood and Affect: Mood normal. Thought Content: Thought content normal. Judgment: Judgment normal. Assessment/Plan Problem List Items Addressed This Visit Class 1 obesity Overview 11/2022- she started phentermine (weight at that time was 165#). At appt 04/24/2023- weight down to 146# Current Assessment & Plan -She has been making lifestyle changes and has been able to lose weight and BMI is now <30. She will continue to work on these changes. -Discussed being able to continue this medication with possibility of reducing the dose down the road for maintenance. Arthritis, lumbar spine Overview She is taking baclofen at night Gastroesophageal reflux disease without esophagitis Overview Prescribed pantoprazole Current Assessment & Plan -Pt advised to avoid food triggers and follow conservative management measures (including avoiding tight fitting pants, weight management, and elevating HOB as indicated) to keep GERD symptoms under control. -Dietary modifications that can help with symptom management include: Eat smaller, more frequent meals rather than large one. Avoid food or liquids for 2-3 hours before lying down (no bedtime snacks!) Avoid or limit the following: Caffeinated products: coffee, tea, sodas, chocolate Red sauces and salsa Fatty, fried, or greasy foods Citric juices: orange, grapefruit Spicy foods Mints: peppermint, spearmint Alcohol -Take medications as recommended and monitor for alarm symptoms . Postmenopausal Depression, major, in remission (HCC) ([facility]) Overview Prescribed citalopram Current Assessment & Plan -Pt is doing well at this time on current dose of celexa. Based on review of patient's medications and current medical status; continuation of medications most appropriate. Compliance with medications and/or management recommendations encouraged. Monitor Hormone replacement therapy Overview Prescribed estradiol 0.5 mg daily by [employer]/Dr Mcgrath Other Visit Diagnoses Encounter for preventative adult health care examination - Primary -Reviewed age appropriate screenings, as well as recommended immunizations and lab monitoring. Health goals established. Patient Plan of care summary available. Encouraged healthy lifestyle choices regarding food choices and regular exercise. Pt expressed understanding of these recommendations. Medications have been reviewed and pt understands importance of taking medications as prescribed. Health Maintenance Topic Date Due Mammogram 12/24/2023 Colorectal Cancer Screening 12/29/2030 Influenza Vaccine Completed Immunization History Administered Date(s) Administered Pfizer Lorenzo Cap SARS-CoV-2 Vaccination 08/15/2021 Pfizer Purple Cap SARS-CoV-2 Vaccination 06/09/2020, 06/29/2020, 02/21/2021 RSV, recombinant, protein subunit RSVpreF, adjuvant reconstitu, 120mcg/0.5mL, PF (Arexvy) 12/25/2022 SARS-COV-2 (COVID-19) vaccine, mRNA, spike protein, LNP, bivalent, preservative free, 30 mcg/0.3 mL dose, nighat-sucrose formulation 12/31/2021 Tdap 06/29/2015 Zoster, Recombinant 02/07/2021, 05/28/2021 -Patient's chronic conditions have been reviewed in preparation for this appointment. Protocols reviewed and updated. A collaborative plan of care has been created for pt regarding specific health concerns. Any barriers to care have been identified and addressed. Any part of this document that has been added/copied from other documents has been reviewed for accuracy and updated as appropriate at the time of the patient encounter. -Follow up in about 1 year (around 04/24/2024) for Annual Physical. Alice Polo D.O. Board Certified Franchise Sales Manager documented in this encounter [facility] 12-09-2022 Evaluation note Encounter Date Diagnosis Assessment Notes Nov, GERD without esophagitis (ICD-10 - K21.9) PATIENT DOING WELL WITH THE PANTOPRAZOLE BID DOSING. SHE REPORTS MAYBE ONCE A WEEK WITH A FLARE OF SYMPTOMS. PATIENT CAN USE PEPCID OTC OR TUMS. [facility] Other 03-09-2023 NoteCONSULTATION CONSULTATION DATE: 05/30/2022 HISTORY OF PRESENT ILLNESS: This is a 61-year-old female who returns to the clinic, status post left hip injection, completed on 05/14/2022. On the day of the injection, she had 100% relief and 50% relief thereafter. She has increased her exercise and is walking a mile a day. This is the result after her hip injection. Within the past week or so, she has been having increased pain which she rates, at rest 4/10. She describes it as an ache, pressure and a burn. She has difficulty lifting her legs, has radiating pain down her left leg to the level of the ankle, bilateral hip and buttock pain. Activities that aggravate her pain are twisting, pushing, pulling, standing, housework, lifting and bending. She does use heat, which is beneficial. Last month she was started on Celebrex 200 mg b.i.d., which she has found to be very beneficial. She is also on baclofen 10 mg daily. Patient's REVIEW OF SYSTEMS / PAST MEDICAL HISTORY / ALLERGIES and IMAGES have been reviewed and noted on the chart. PHYSICAL EXAM: VITAL SIGNS: Blood pressure 168/97, heart rate is 66. Temperature is 97.5. She is 5' and weighs 74 kg. GENERAL IMPRESSION: Pleasant, appropriate, in no acute distress. FOCUSED EXAM - BACK: Range of motion is functional in lateral rotation and flexion/extension. No spinal axial pain reproduced upon deep compression of the lumbar facets. Paravertebral muscles are non-spasmodic. Autumn's point tender bilaterally, left greater than right. FABERs, compression test and thigh thrust tests are positive. MUSCULOSKELETAL: Right greater trochanteric bursa tender to palpation, producing a positive jump response. Edema palpated. Left hip with decreased range of motion in lateral raises. Point tenderness anterior/posterior aspect of the joint. Muscle tone is good bilateral lower extremities. NEUROLOGICAL: Patchy hypoesthesia noted along the left L3, L4, L5 distribution that extends below the knee. +1 bilateral patellar reflexes. DIAGNOSIS: Right greater trochanteric bursitis, left hip osteoarthritis, lumbar radiculitis, lumbar spondylosis. PLAN: Patient seems to be in a inflamed state at this time. We will address it with oral prednisone burst therapy. She is to maintain on her Celebrex 200 mg b.i.d. She will return to the clinic in three months time for re-evaluation. Patient agrees with this plan.[facility] [id number] NotePROCEDURE: XR HIP LT 2 3V WO PELVIS HISTORY: Pain of left hip joint , chronic COMPARISON: None. FINDINGS: BONES:Small degenerative osteophyte along superior rim of acetabulum. No fracture, dislocation, or significant joint space narrowing. SOFT TISSUES:No visible soft tissue swelling. EFFUSION:None visible. OTHER: Negative. IMPRESSION: 1. No acute bone abnormality. 2. Mild degenerative joint disease. Electronically authenticated by: GENESIS BELLO Date: 2022-05-02 14:36The [facility] [id number] NoteCONSULTATION CONSULTATION DATE: 05/02/2022 HISTORY OF PRESENT ILLNESS: This is a 61-year-old female who returns to the clinic status post bilateral SI joint injections completed on 04/16/2022. The patient had 70% relief to the SI area, but is still having significant left hip pain. It is painful with sitting, standing, stairs and housework. She does alternate with heat and ice, which does help her pain. She did have a script for diclofenac. She stopped that as she felt it was not helpful. She does take baclofen 10 mg q.h.s. She does participate in stretches and had completed 10 treatments of physical therapy in [place]. The patient does state, at the end of the day, she is limping to that left hip, as her pain worsens with activity. Patient's REVIEW OF SYSTEMS / PAST MEDICAL HISTORY / ALLERGIES and IMAGES have been reviewed and noted on the chart. PHYSICAL EXAM: VITAL SIGNS: Blood pressure is 146/84. Heart rate is 73. She is 5' tall and weighs 74 kg. GENERAL IMPRESSION: Pleasant, appropriate, in no acute distress. FOCUSED EXAM - BACK: Range of motion is functional in lateral rotation and flexion/extension. Paravertebral muscles are non-spasmodic. No spinal axial pain upon compression of the lumbar facets. Autumn's point is minimally tender but with no radiating pain. Left hip has posterior tenderness while leg is in adduction. Lateral raise and abduction are functional but painful. Range of motion intact. MUSCULOSKELETAL: Motor is intact] bilateral lower extremities, 5/5. Patient walks unassisted with a stable gait. NEUROLOGICAL: Radicular sensory is intact bilateral lower extremities. +2 patellar and Achilles reflexes. DIAGNOSIS: Left hip pain and sacroiliitis bilaterally. PLAN: We will obtain imaging of her left hip x-ray. I feel it will be beneficial if she stayed on an anti-inflammatory; therefore, we will place her on Celebrex 200 mg b.i.d. Pending the x-ray, we will proceed for a left hip injection if pathology is noted. Patient is aware of this. ADDENDUM: Patient received left hip x-ray following her office visit and it was reviewed. She does have a small degenerative osteophyte along the superior rim of the acetabulum, which does go concurrently with the patient's symptomatology. Patient was made aware and we will move forward with a left steroid Marcaine hip injection under fluoroscopy. She will be followed up in the office post procedure.[facility] [id number] NoteCONSULTATION CONSULTATION DATE: 02/07/2022 HISTORY OF PRESENT ILLNESS: This is a pleasant, 61-year-old female returning to the clinic for a three month follow up for her mid back and bilateral hip pain. Today, she is complaining of 3/10 pain at rest to bilateral hips with radiating pain to the lateral aspect of bilateral lower extremities to mid thigh. It is aggravated by housework, lifting, prolonged standing, lying, pushing and pulling. She does use heat, which is beneficial, as well as inversion table and stretches. She is also complaining of mid thoracic pain across her bra strap that is a new pain to her. We did do radiofrequency ablations of her lumbar spine in September of 2021 which is still affording her significant relief. She is, today, complaining of some hypoesthesia to her right toes. Medications include baclofen 10 mg daily, Celexa. She was on Mobic in the past, but she felt diclofenac did better for her. She just restarted protonix and is able to tolerate the diclofenac better. Patient's REVIEW OF SYSTEMS / PAST MEDICAL HISTORY / ALLERGIES and IMAGES have been reviewed and they are noted on the chart. PHYSICAL EXAM: VITAL SIGNS: Blood pressure 137/85, heart rate is 90. Temperature is 97.3. She is 5' tall and weighs 75 kg. GENERAL IMPRESSION: Pleasant, appropriate, no acute distress. FOCUSED EXAM - BACK: Range of motion is functional in lateral rotation and flexion/extension. Paravertebral muscles are non-spasmodic. Autumn's point is tender bilaterally with a positive jump response, left greater than right. Pain does radiate to bilateral hips and groin and along the lateral aspect of her lower extremities. FABERs, compression and thigh thrust tests are positive. Pain is reproduced along the mid thoracic region along the facets of T4, T5 and T6, T7. MUSCULOSKELETAL: Motor is intact, 4/5 bilaterally. No vasomotor obvious weakness noted. Patient does not use assistive device and ambulates with a steady gait. NEUROLOGICALLY: Patchy hypoesthesia noted along L5-S1 bilaterally. Reflexes are intact, +2 bilaterally. DIAGNOSIS: Bilateral sacroiliitis, lumbar spondylosis and thoracic pain. PLAN: We will authorize for bilateral SI joint injections. We will refill her diclofenac 50 mg b.i.d. We will obtain a thoracic x-ray to review anatomy. Patient agrees to move forward with this plan and will be followed up in the clinic thereafter. We will review her thoracic x-ray at that time.[facility] [id number] NoteCONSULTATION CONSULTATION DATE: 11/15/2021 This is a 61-year-old female returning to the clinic status post bilateral RFAs of L2, L3 and L4, L5 completed on 10/16/2021 that afforded her 95% relief and is ongoing. The patient states her bilateral hip bursitis is much better as well, since he has been putting Voltaren and Vicks VapoRub mix on those areas. She is able to exercise, take walks and clean her house with less pain. She has recently had oral surgery for removal of a tooth and a tooth abscess but is healing well from that. She is very positive and outgoing today. Medications include Baclofen 10 mg q.h.s., Mobic 50 mg p.r.n. and ibuprofen. She denies any new radicular pain or vasomotor pain. REVIEW OF SYSTEMS, PAST MEDICAL HISTORY, ALLERGIES AND IMAGES: Have been reviewed and noted in the chart. PHYSICAL EXAM: VITAL SIGNS: Blood pressure 126/83, heart rate is 62, temperature is 97.3. Height is 5', weighs 70.6 kg. GENERAL APPEARANCE: Pleasant, appropriate, no acute distress. FOCUSED EXAM: BACK: Range of motion is functional in lateral rotation and flexion/extension. No reproduction of spinoaxial pain to compression of the lumbar facets. Autumn's point is nontender bilaterally with negative Waylon's. MUSCULOSKELETAL: Motor is intact, 5 out of 5 bilaterally. Ambulates with a steady gait. No assistive device. NEUROLOGICAL: Radicular sensory is intact. Reflexes and Achilles reflexes are +2 bilaterally. DIAGNOSIS: Lumbar degenerative disk disease, lumbar spondylosis, chronic lower back pain. PLAN: Overall the patient is doing quite well and is very pleased with her outcome She is compliant with her multivitamin regimen in addition to Baclofen and Mobic. There will be no medication changes at this time. We will see her in three months' time unless otherwise indicated. The patient does agree to this.[facility] [id number] Evaluation note* Encounter Date Diagnosis Assessment Notes Treatment Notes Treatment Clinical Notes Sep, Irritable bowel syndrome with both constipation and diarrhea (ICD-10 - K58.2) Sep, GERD (gastroesophageal reflux disease) (ICD-10 - K21.9) Sep, Bloating (ICD-10 - R14.0) [facility] Other 06-30-2022 NoteCONSULTATION CONSULTATION DATE: 09/20/2021 This is a pleasant 61-year-old female who returns to the clinic today for increased lower back pain, right thigh pain and bilateral hip pain. She was last seen in the office on 05/03/2021 which at that time she had a successful, long-lasting relief with lumbar RFAs. She had asked for this appointment today. She has been very active, going to the gym daily with weight training, walking, exercising and swimming. She has an inversion table and uses that multiple times through the week. She is using diclofenac anti-inflammatory, 50 mg q. day in addition to heat and topical heat rub. The patient feels her back pain is similar to the back pain she experienced prior to her initial ablation. 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 She describes the pain as a 4 out of 10, achy, pressure like, heavy with an occasional sharp zinger like pain. She denies any vasomotor changes or any radicular pain. REVIEW OF SYSTEMS, PAST MEDICAL HISTORY, ALLERGIES AND IMAGES: Have been reviewed and noted in the chart. PHYSICAL EXAM: VITAL SIGNS: Blood pressure 146/86, heart rate is 62, temperature is 97.7. Height is 5', weighs 72.2 kg. GENERAL APPEARANCE: Pleasant, appropriate and in no acute distress. FOCUSED EXAM: BACK: Range of motion is guarded in lateral rotation and flexion/extension. Paravertebral muscles are non-spasmodic. Point tenderness and reproduction of the patient's symptoms to direct compression along the posterior elements of the lumbar facets of L2, L3 and L4, L5 bilaterally. Left is greater than the right. Pain does radiate to the hips. MUSCULOSKELETAL: Motor is intact, 5 out of 5 bilaterally, good muscle tone. Range of motion to bilateral hip joints in adduction, abduction intact. Bilateral greater trochanteric bursae are edematous and tender to palpation, indicative of bursitis bilaterally. NEUROLOGICAL: Negative polyneuropathy, radicular sensory is intact. DIAGNOSIS: Lumbar degenerative disk disease, lumbar spondylosis, spinoaxial lower back pain and bilateral greater trochanteric bursitis. PLAN: We will authorize repeat radiofrequency ablation to her lumbar region of L2, L3 and L4, L5 starting with the left side, subsequently moved to the right. We will change her anti-inflammatory to Mobic 15 mg q. day. The patient was directed to stop the diclofenac. She was instructed to continue with her inversion table, heat rub and Voltaren gel to bilateral bursa. The patient agrees to the plan of care and would like to move forward and she will be followed up it the clinic post-procedure. [facility] Signed and Approved by: JONI MAHMOOD . 09/27/2021 16:26:00[facility]12-06-2021 Evaluation note* Encounter Date Diagnosis Assessment Notes Treatment Notes Treatment Clinical Notes Feb, GERD (gastroesophageal reflux disease) (ICD-10 - K21.9) [facility] Other 09-29-2021 Evaluation note* Encounter Date Diagnosis Assessment Notes Treatment Notes Treatment Clinical Notes Nov, GERD (gastroesophage al reflux disease) (ICD-10 - K21.9) GERD home care material was printed EGD START CARAFATE 1 GRAM TID Nov, Irritable bowel synd john with both constipation and diarrhea (ICD-10 - K58.2) Nov, Pharyngoesophageal dysphagia (ICD-10 - R13.14) [facility] Other Evaluation noteNo InformationNort [email or web address] Other Evaluation noteNo assessment information available [facility] Work Phone: Evaluation note* Diagnosis Encounter for preventative adult health care examination- Primary Arthritis, lumbar spine Depression, major, in remission (HCC) ([facility]) Gastroesophageal reflux disease without esophagitis Esophageal reflux Postmenopausal Asymptomatic postmenopausal status (age-related) (natural) Hormone replacement therapy Class 1 obesity BMI 29.0-29.9,adult [facility] Diagnosis Body mass index (BMI) 28.0-28.9, adult Abnormal weight gain Yeast infection BMI 29.0-29.9,adult [facility]* Diagnosis Onset Date Resolution Status GERD (gastroesophageal reflux disease) acute [facility] Work Phone: History general Narrative - Reported* Type Description Date Medical History Gastroesophageal Reflux Disease Medical History Anxiety/Depression Medical History seasonal asthma Surgical History Caesarean Section X 3 Surgical History Tonsillectomy/Adenoidectomy Surgical History Laparoscopy Surgical History Hysteroscopy/Endometrial Ablati on Surgical History Laparoscopy Cholecystectomy Surgical History [facility] tenton interposition Arthro plasty 2019 Hospitalization History See Above [facility] Other Hisyvgg general Narrative - ReportedNort [email or web address] Other Hisjscd general Narrative - Reported* Type Description Date Medical History Gastroesophageal Reflux Disease Medical History Anxiety/Depression Medical History seasonal asthma Medical History sleep apnea Medical History severe sleep hypoxia Surgical History Caesarean Section X 3 Surgical History Tonsillectomy/Adenoidectomy Surgical History Laparoscopy Surgical History Hysteroscopy/Endometrial Ablati on Surgical History Laparoscopy Cholecystectomy Surgical History [facility] tenton interposition Arthro plasty 2019 Surgical History nerve block Surgical History ablasion-LUMBAR NERVE Hospitalization History See Above [facility] Other Hospital Discharge instructions Additional Instructions Follow up with your primary care doctor Return to the ED If you develop worsening [facility] Work Phone: Chief Complaint and Reason for Visit Chief Complaint K58.2 K21.9 R14.0 abscess Chief Complaint Rapid heart beat Chief Complaint Rapid heart beat R00.2 Chief Complaint Rapid heart beat R00.2 G47.8 Chief Complaint GERD, dysphagia Sleep apnea 31-90 day follow up Chief Complaint follow up Reason for Visit GERD (gastroesophage al reflux disease) Chief Complaint follow up wants to discuss inspire Reason for Visit GERD (gastroesophage al reflux disease) Family History Relationship Condition Age at Onset Recorded Date/T manish Not Specified Atrial fibrillation Unknown father Heart disease Unknown Relationship Condition Age at Onset Recorded Date/T manish Not Specified Atrial fibrillation Unknown father Heart disease Unknown natural son Ulcerative colitis Unknown Advance Directives Advance Directive Response Recorded Date/ Time Advance Directives No July 01 1:39pm Advance Directive Response Recorded Date/ Time Advance Directives No July 01 12:39pm Summary Purpose Additional Source Comments REASON FOR VISIT (unrecogniz ed section and content) Reason Comments Annual Adult Preventive Visit Reason Comments Weight Management Pt is taking Adipex. Pt is doing well. Vaginitis/Bacterial Vaginosis Pt would l kenya a script for diflucan, states she has a yeast infection. Pt did not want an exam today. Care Teams (unrecognized sec tion and content) Team Status: Inactive Member Role Status Dates Alice Stoney , DO Primary Care Provider Active Ken Ortiz , DO Attending Provider Active Team Status: Inactive Member Role Status Dates Alice LunaEmily , DO Primary Care Provider Active Rm Heller APRN Emergency Provider Active Team Status: Active Member Role Status Dates Alicera FloresNabil , DO Primary Care Provider Active Team Status: Inactive Member Role Status Dates Alice LunaEmily , DO Primary Care Provider Active Oswaldo Deleon , DO Emergency Provider Active Team Status: Inactive Member Role Status Dates Alicera LunaJavier , DO Primary Care Provider, Attend ing Provider Active Team Status: Inactive Member Role Status Dates Alice MarkNabil , DO Primary Care Provider, Referr ing Provider Active Ken Mendez MD Attending Provider Active Team Status: Inactive Member Role Status Dates Alicera LunaJavier , DO Primary Care Provider Active Alix Perez NP Attending Provider Active Team Status: Inactive Member Role Status Dates Alicera FloresNabil , DO Primary Care Provider Active Edison Monroe MD Attending Provider Active Sales Branch Manager Relationship Specialty Start Date End Date Alice Polo Keven, DO [address] [place] [address] PCP - General Internal Medicine 07/30/22 Sales Branch Manager Relationship Specialty Start Date End Date Alice Polo, DO [address] [place] [address] PCP - General Internal Medicine 07/30/22 Team Status: Inactive Member Role Status Dates Alice Stoney , DO Primary Care Provider Active Start: July 11, 2023 End: July 11, 2023 Gabe Gonzalez APRN Attending Provider Active Start: July 11, 2023 End: July 11, 2023 Team Status: Inactive Member Role Status Dates Alice FloresNabil , DO Primary Care Provider Active Start: July 31, 2023 End: July 31, 2023 Ken Mendez MD Attending Provider Active S tart: July 31, 2023 End: July 31, 2023 Goals (unrecognized section and content) Goals may be documented in a n alternate section INFORMATION SOURCE (unrecogn ized section and content) DATE CREATED AUTHOR 12/21/2021 [facility] d[facility] Specialist DATE CREATED AUTHOR AUTHOR'S ORGANIZ ATION 05/25/2022 [facility] DATE CREATED AUTHOR AUTHOR'S ORGANIZ ATION 06/05/2022 [facility] DATE CREATED AUTHOR AUTHOR'S ORGANIZ ATION 10/05/2022 [facility] DATE CREATED AUTHOR AUTHOR'S ORGANIZ ATION 07/17/2023 [facility] dical Specialists [facility] FOR RECORDS PERTAINING TO PATIENTS WHO ARE OR HAVE BEEN ENROLLED IN A CHEMICAL DEPENDENCY/SUBSTANCEABUSE PROGRAM, SOME INFORMATION MAY BE OMITTED. This clinical summary was aggregated from multiple sources. Caution should be exercised in using it in the provision of clinical care. This summary normalizes information from multiple sources, and as a consequence, information in this document may materially change the coding, format and clinical context of patient data. In addition, data may be omitted in some cases. CLINICAL DECISIONS SHOULD BE BASED ON THE PRIMARY CLINICAL RECORDS. [facility] [employer] provides no warranty or guarantee of the accuracy or completeness of information in this document.
--- NOTE | 2023-08-06 12:33 | P.CN_ITS ---
Consult Note: HPI Data of Consult Patient: known to practice within the last 3 years Requesting Physician: Jordyn Schroeder NP Primary Care Provider: PETER FERRER Consult Narrative Reason for consult: f/u Narrative: Flores Georges a pleasant 63 year old female with chronic neck and back pain. Patient reporting 75% ongoing improvement in pain and functional improvement from left and right L4-5 L5-S1 RFA. Patient reporting pain 3/10 constant in low back with neck pain, increases to severe at its worst. Pain increased with activity and in the evening. Patient reports intermittent heaviness numbness and weakness of left leg. Pain has increased over the last two months with bilateral legs and toes going numb, and periodic burning tingling of neck/upper back. Finds mild improvement from celebrex 200mg BID PRN, baclofen 5-10mg PRN without side effects. Continues to engage in provider guided HEP greater than 6 weeks wiht mild benefit. cc:: CC: Jordyn Schroeder NP Review of Systems ROS Status of ROS 10 or more systems reviewed and unremark able except as noted in history and below Musculoskeletal Reports: back pain and neck pain PFSH PFSH Medical History Surgical History H/O hand surgery ?Z98.890 - Other specified postprocedural states (ICD-10) History of cholecystectomy ?Z90.49 - Acquired absence of other specified parts of digestive tract (ICD- 10) H/O: hysterectomy ?Z90.710 - Acquired absence of both cervix and uterus (ICD-10) Meds Home Medications and Allergies Home Medications ?Medication ?Instructions ?Recorded ?Confirmed ?Type baclofen 10 mg tablet 10 mg PO DAILY 08/29/22 01/28/23 History citalopram 20 mg tablet (Celexa) 20 mg PO DAILY 08/29/22 01/28/23 History estradiol 1 mg tablet (Estrace) 1 mg PO DAILY 08/29/22 01/28/23 History omeprazole 40 mg capsule,delayed 40 mg PO DAILY 08/29/22 01/28/23 History release celecoxib 200 mg capsule mg 10/08/22 History diazepam 5 mg tablet mg 01/07/23 History Allergies Allergy/AdvReac Type Severity Reaction Status Date / Time Sulfa (Sulfonamide Allergy Mild Unknown Verified 01/07/23 12:05 Antibiotics) Exam Constitutional Documenting provider has reviewed patient's vital signs: yes Common normals: no apparent distress, oriented x3, healthy appearing, alert and well nourished General appearance: cooperative HENMT Common normals: normocephalic, hearing grossly normal bilaterally and moist oral mucous membranes Head and scalp: normocephalic Eye Common normals: PERRL Pupil: PERRL Neck & C-Spine Common normals: full ROM General: normal visual inspection Cervical spine: pain with cervical ROM Other: negative sprulings strength 5/5 in BUE pain over C5-7 facets Chest Common normals: inspection of chest normal Respiratory Common normals: normal respiratory effort, no retractions and no use of accessory muscles Back & Pelvis Thoracic spine/upper back: normal to inspection and paraspinal muscle tenderness Lumbar spine/lower back: normal to inspection, paraspinal muscle tenderness and straight leg raise positive left Sacroiliac joints: SI joints normal Other: left lower extremity 4/5 sensation decreased following left L5/S1 pattern reports increase in heaviness and weakness of LLE with standing ambulation and stairs axial low back pain increased over bilateral L2 L3 facets Extremity Common normals: normal to inspection and full ROM Neuro Common normals: oriented x3, CN's II-XII intact bilaterally, moves all extremities, no focal motor deficits, no sensory deficits noted and deep tendon reflexes 2+ bilaterally Sensorium/orientation: alert Motor exam: no movement abnormalities noted and strength abnormal Psych Common normals: mental status grossly normal, thought process normal, cooperative, affect normal, speech normal and activity/motor behavior normal Speech: normal speech Thought process: normal thought process Results Additional Findings Additional findings: If on a controlled substance or opioids, I have checked an [place]AR[place] report on this patient and there are no aberrancies noted in the prescribing history.??If on a controlled substance or opioid a drug screen was completed and reviewed within the last year, and if there has not been a drug screen completed we ordered one today to monitor higher risk, state monitored pain medication use. As part of providing excellent, safe, comprehensive care, the following was completed at our patient's visit: 1. A medication reconciliation and review to ensure accurate knowledge of current/active medications, including asking our patients to inform us about any mwow-coq-efubqov medications or herbal remedies/nutritional supplements/alt ernative remedies. 2. A review to specifically ensure our patients have had annual screening for screening for depression, screening for tobacco use, and screening for unhealthy alcohol use. For concerning screenings had a discussion with the patient, provided patient education, and recommended follow-up with primary care provider when appropriate. If patient noted with a risk of falling, they received education on strength, gait, and balance training to prevent future risk of falling. Assessment and Plan Assessment and Plan (1) Lumbar stenosis with neurogenic claudication: (2) Lumbar spondylosis: (3) Muscle spasm: (4) Cervical spondylosis: Plan update lumbar MRI without contrast to evaluate lumbar spine for degenerative changes as well as stenosis, in consideration of additional interventions vs surgical intervention as patient has worsening back pain with numbness tingling weakness of LLE. failed HEP greater than 6 weeks and above listed medications. TENS unit discussed and ordered for myofascial pain, muscle spasms, back pain update cervical and lumbar xray with flexion and extension continue current medications as needed/tolerated continue HEP as tolerated f/u after completion of imaging
== END 2023-08-06 10:58 | disposition home or self-care (01) ==
LOC: PM 10:57
PROVIDERS: PCP Internal Medicine; Visit Provider Nurse Practitioner
DX: M54.2 Cervicalgia (principal); M54.50 Low back pain, unspecified; M48.062 Spinal stenosis, lumbar region with neurogenic claudication; M47.816 Spondylosis without myelopathy or radiculopathy, lumbar region; M47.812 Spondylosis without myelopathy or radiculopathy, cervical region; M62.838 Other muscle spasm
CPT/HCPCS: 72050; 72114; G0463

== ENCOUNTER 2023-08-06 11:40 | Outpatient (OUT) | payer OTHER, SELFPAY ==
--- NOTE | 2023-08-06 11:47 | XR_ITS ---
The [address] [address] Patient Name: KEVIN RAZO MRN: [id number] date: 1960 Sex: F Assigned Patient Location: [facility] Current Patient Location: [facility] Accession/Order Number: [id number] Exam Date: 08/06/2023 11:55 Report Date: 08/07/2023 09:20 At the request of: CYNTHIA LANDRUM Procedure: XR lumbar spine 6V w bending EXAMINATION: XR lumbar spine 6V w bending HISTORY: Low Back Pain COMPARISON: No relevant comparison available. FINDINGS: BONES: 2 mm anterior listhesis of L4 on 5 during neutral and extension, which progresses to 6 mm anterior listhesis during flexion. No compression fracture or bone lesion. Moderate degenerative facet arthropathy L4-5, L5-S1. No appreciable pars interarticularis defects. DISC SPACES: Mild narrowing L3-4 through L5-S1. PARASPINOUS: Negative. No paraspinous abnormality is seen. OTHER: Negative. XR/XR lumbar spine 6V w bending IMPRESSION: 1. Mild degenerative disc disease and facet arthropathy of lower lumbar spine. 2. Development of 6 mm anterior listhesis of L4 on 5 during flexion. Degenerative facet arthropathy at this level; no appreciable pars interarticularis defects. Electronically authenticated by: GENESIS BELLO Date: 08/07/2023 09:20
--- NOTE | 2023-08-06 11:47 | XR_ITS ---
The [address] [address] Patient Name: KEVIN RAZO MRN: [id number] date: 1960 Sex: F Assigned Patient Location: [facility] Current Patient Location: Accession/Order Number: [id number] Exam Date: 08/06/2023 11:55 Report Date: 08/07/2023 09:06 At the request of: CYNTHIA LANDRUM Procedure: XR cervical spine 5V EXAMINATION: XR cervical spine 5V HISTORY: Neck Pain radiating into upper extremities COMPARISON: No relevant comparison available. FINDINGS: BONES: Straightening of normal lordotic curvature. No fracture or spondylolisthesis. Multilevel moderate degenerative facet arthropathy. DISC SPACES: Mild narrowing C3-4. Moderate narrowing C4-5, C5-6, C6-7. Posterior disc osteophyte complexes C4-5 through C6-7 resulting in foraminal narrowing and likely central canal narrowing. PARASPINOUS: Negative. No paraspinous abnormality is seen. OTHER: Negative. XR/XR cervical spine 5V IMPRESSION: 1. Moderate degenerative changes of lower cervical spine with suspected moderate-marked foramen narrowing at multiple levels. Consider MRI for further evaluation. Electronically authenticated by: GENESIS BELLO Date: 08/07/2023 09:06
--- OUTSIDE RECORDS SUMMARY | 2023-08-06 12:02 | XMS_ITS | CCD ---
Author Organization [facility] Care Team Providers Care Central Office Worker Name Role Phone Ken Ortiz Unavailable DO Alice Polo Primary Care Provider [phone] DO Ken Ortiz Attending Provider [phone] TOMMIE Heller Emergency Provider DO Alice Polo Primary Care Provider DO Oswaldo Deleon Emergency Provider DO Alice Polo Attending Provider Dr. Alice Polo Primary Care [facility] Dr. Alice Polo Primary Care [facility] LUNA NABIL, ALICE Primary Care Unavailable RAHEEL ., DR ARNAV Martínez Attending Unavailable CROEA ., DR ARNAV Martínez Admitting Unavailable COREA ., DR ARNAV Martínez Consulting Unavailable [facility] Primary Care Unavailable MAHMOOD .JONI Consulting Unavailable RAHEEL ., DR ARNAV Martínez Attending Unavailable COREA ., DR ARNAV Martínez Admitting Unavailable [facility] Primary Care Unavailable MAHMOOD ., JONI Consulting Unavailable COREA ., DR ARNAV Martínez Attending Unavailable COREA ., DR ARNAV Martínez Admitting Unavailable [facility] Primary Care Unavailable LAKSHMIPATHY ., NARENDRANATH Admitting [place] v[place] LAKSHMIPATHY ., NARENDRANATH Attending [place] vailable [facility] Primary Care Unavailable COREA ., DR ARNAV Martínze Consulting Unavailable COREA ., DR ARNAV Martínez Attending Unavailable COREA ., DR ARNAV Martínez Admitting Unavailable COREA ., DR ARNAV Martínez Attending Unavailable COREA ., DR ARNAV Martínez Admitting Unavailable MISC, DR SCHMIDT Consulting Unavailable [facility] Primary Care Unavailable MAHMOOD ., JONI Consulting Unavailable MAHMOOD ., JONI Consulting Unavailable COREA ., DR ARNAV Martínez Attending Unavailable COREA ., DR ARNAV Martínez Admitting Unavailable [facility] Primary Care Unavailable COREA ., DR ARNAV Martínez Consulting Unavailable COREA ., DR ARNAV Martínez Attending Unavailable COREA ., DR ARNAV Martínez Admitting Unavailable [facility]ICE Primary Care Unavailable ROLAN CRISOSTOMO Consulting Unavailable [facility]ICE Primary Care Unavailable MAHMOOD ., JONI Attending Unavailable MAHMOOD ., JONI Admitting Unavailable ZIEBER, DR GENESIS Mo Consulting Unavailable MAHMOOD ., JONI Consulting Unavailable LUNA [facility] ALICE Primary Care Unavailable MAHMOOD ., JONI Attending Unavailable MAHMOOD ., JONI Admitting Unavailable ZIEBER, DR GENESIS Mo Consulting Unavailable MAHMOOD ., JONI Consulting Unavailable MAHMOOD ., JONI Consulting Unavailable COREA ., DR ARNAV Martínez Attending Unavailable COREA ., DR ARNAV Martínez Admitting Unavailable [facility] Primary Care Unavailable Luna-Cullman, DO Alice Primary Care Provider [phone] DO Oswaldo Deleon Emergency Provider [phone] Luna-DO Nabil Alice Attending Provider Melani DO Alice Referring Provider MD Ken Mendez Attending Provider Edison Monroe Unavailable Luna-DO Nabil Alice Primary Care Provider MD Edison Monroe Attending Provider CRISTEL Perez Attending Provider [phone] [facility] Unavailable Edison Monroe Admitting Unavailable Edison Monroe Attending Unavailable Rm Heller Admitting Unavailable Rm Heller Attending Unavailable [facility] Primary Care Unavailable Oswaldo Deleon Attending Unavailable Luna-[place], Alice Primary Care Unavailable Oswaldo Deleon Admitting Unavailable Perez, Alix Admitting Unavailable Perez, Alix Attending Unavailable Lnua-C[facility], Alice Primary Care Unavailable Luna-[facility], Alice Primary Care Unavailable Alice Polo Attending [...] source) Sulfonamides (Antibiotic) Drug allergy (disorder) [facility] (2 sources) Sulfonamides (Antibiotic); Translations: [Sulfa (Sulfonamide Antibiotics)] Allergy to substance 3 [facility] (3 sources) Sulfonamides (Antibiotic) Drug Allergy 3 [...] 11, 2023 12:00am take [address] [facility] every twenty-four hours as needed CeleBREX [...] 05/08/2023 06/07/2023 Active take [address] [facility] every twenty-four hours Adipex-P 37.5 MG [...] every four to six hours Hydrocodone-Acetami nophen ([place]) 5-325 mg tablet Discontinued 1 - 2 TAB PO EVERY 4-6 HOURS 50 7 December 10, 2018 December 10, 2018 10:44am Start: 12-10-2018 End: 12-10-2018 take 1 tablet by mouth every four to six hours Hydrocodone-Acetaminophen ([place]) 5-325 mg tablet Discontinued 1 - 2 TAB PO EVERY 4-6 HOURS 50 7 December 10, 2018 December 10, 2018 10:44am Start: 12-10-2018 End: 12-10-2018 take 1 tablet by mouth every four to six hours Hydrocodone-Acetaminophen ([place]) 5-325 mg tablet Discontinued 1 - 2 TAB PO EVERY 4-6 HOURS 50 7 December 10, 2018 December 10, 2018 10:44am Start: 12-10-2018 End: 12-10-2018 take 1 tablet by mouth every four to six hours Hydrocodone-Acetaminophen ([place]) 5-325 mg tablet Discontinued 1 - 2 TAB PO EVERY 4-6 HOURS 50 7 December 10, 2018November 19th, 2019 10:44am Start: 12-10-2018 End: 12-10-2018 take 1 tablet by mouth every four to six hours Hydrocodone-Acetaminophen ([place]) 5-325 mg tablet Discontinued 1 - 2 TAB PO EVERY 4-6 HOURS 50 7 December 10, 2018 December 10, 2018 9:44am Start: 12-10-2018 End: 12-10-2018 take 1 tablet by mouth every four to six hours Hydrocodone-Acetaminophen ([place]) 5-325 mg tablet Discontinued 1 - 2 TAB PO EVERY 4-6 HOURS 50 December 10, 2018 December 10, 2018 9:44am Start: 12-10-2018 End: 12-10-2018 take 1 tablet by mouth every four to six hours Hydrocodone-Acetaminophen ([place]) 5-325 mg tablet Discontinued 1 - 2 TAB PO EVERY 4-6 HOURS 50 7 December 10, 2018 December 10, 2018 10:44am Start: 04-27-2018 End: 12-10-2018 take 1 tablet by mouth every four to six hours Hydrocodone-Acetaminophen ([place]) 5-325 mg tablet Discontinued 1 - 2 [...] recordingo n 05-10-2022 [place] holter monitor recording [facility] [place] [address] [place] [address] Holter Monitor Report Signed Patient: Giselle Georges MR#: [id number] : 1960 Acct:[id number] Age/Sex: 61 / F ADM Date: 05/07/22 Loc: Room: Type: [facility] Attending Dr: Alice Polo DO Copies to: José Ambriz MD, [facility] Alice Polo DO Ordering Provider: Alice Polo [...] NTS 05/10/221950 Dictated By: José Ambriz MD, [facility] 05/10/22 1450 Signed By: 05/20/22 09 Normal [facility] Activated partial thrombopla stin time (aPTT) in platelet poor plasma by coagulation aOrdered By: Oswaldo Deleon on 05-02-2022 aPTT Coag (PPP) [Time] 30.0 s 25.1-36.5 [facility] Basophils Auto (Bld) [#/Vol] Ordered By: Oswaldo Deleon on 05-02-2022 Basophils (Bld) [#/Vol] 0.0 10*3/uL 0.0-0.2 [facility] Basophils/100 WBC Auto (Bld) Ordered By: Oswaldo Deleon on 02-09-2023 Basophils/100 WBC (Bld) 0.7 % . [facility] Body fluid albumin measureme nt (mass/volume)Ordered By: Oswaldo Deleon on 05-02-2022 Albumin (Body fld) [Mass/Vol] 4.0 g/dL 3.2-5.5 [facility] Complete Blood Count Auto Di ffon 05-02-2022 Basophils (Bld) [#/Vol] 0.0 10*3/uL Normal 0.0-0.2 [facility] Comment on above: Result Comment: PERF ORMED BY: [place] [address] PATHOLOGIST RENOVATOR MACHINE OPERATOR MATTHEW SHAFER M.D. Performed By: #### D DIMER, MG, PT, CKMB, HS TROP, PTT, CBC, CMP, CK #### [address] Basophils/100 WBC (Bld) 0.7 % Normal . [facility] Comment on above: Performed By: #### D DIMER, MG, PT, CKMB, HS TROP, PTT, CBC, CMP, CK #### [address] Eosinophils (Bld) [#/Vol] 0.4 10*3/uL Normal 0.0-0.45 [facility] Comment on above: Performed By: #### D DIMER, MG, PT, CKMB, HS TROP, PTT, CBC, CMP, CK #### [facility] [address] [place] [address] Eosinophils/100 WBC (Bld) 4.9 % Normal . [facility] Comment on above: Performed By: #### D DIMER, MG, PT, CKMB, HS TROP, PTT, CBC, CMP, CK #### [address] Erythrocyte distribution width (RBC) [Ratio] 13.0 % Normal 11.9-15.3 [facility] Comment on above: Performed By: #### D DIMER, MG, PT, CKMB, HS TROP, PTT, CBC, CMP, CK #### [address] Hematocrit (Bld) [Volume fraction] 43.7 % Normal 34.0-46.4 [facility] Comment on above: Performed By: #### D DIMER, MG, PT, CKMB, HS TROP, PTT, CBC, CMP, CK #### [address] Hemoglobin (Bld) [Mass/Vol] 14.7 g/dL Normal 11.8-15.4 [facility] Comment on above: Performed By: #### D DIMER, MG, PT, CKMB, HS TROP, PTT, CBC, CMP, CK #### [address] Lymphocytes (Bld) [#/Vol] 1.6 10*3/uL Normal 1.00-4.8 [facility] Comment on above: Performed By: #### D DIMER, MG, PT, CKMB, HS TROP, PTT, CBC, CMP, CK #### [address] Lymphocytes/100 WBC (Bld) 22.0 % Normal . [facility] Comment on above: Performed By: #### D DIMER, MG, PT, CKMB, HS TROP, PTT, CBC, CMP, CK #### [address] MCH (RBC) [Entitic mass] 30.0 pg Normal 24.7-34.3 [facility] Comment on above: Performed By: #### D DIMER, MG, PT, CKMB, HS TROP, PTT, CBC, CMP, CK #### [address] MCV (RBC) [Entitic vol] 88.9 fL Normal 80-100 [facility] Comment on above: Performed By: #### D DIMER, MG, PT, CKMB, HS TROP, PTT, CBC, CMP, CK #### [address] Mean Corpuscular HGB Conc 33.7 g/dL Normal 32.0-35.0 [facility] Comment on above: Performed By: #### D DIMER, MG, PT, CKMB, HS TROP, PTT, CBC, CMP, CK #### [address] Monocytes (Bld) [#/Vol] 0.8 10*3/uL Normal 0.0-0.8 [facility] Comment on above: Performed By: #### D DIMER, MG, PT, CKMB, HS TROP, PTT, CBC, CMP, CK #### [address] Monocytes/100 WBC (Bld) 18.10 % Normal 0.00-20.00 [facility] Comment on above: Performed By: #### D DIMER, MG, PT, CKMB, HS TROP, PTT, CBC, CMP, CK #### [address] Monocytes/100 WBC (Bld) 10.2 % Normal . [facility] Comment on above: Performed By: #### D DIMER, MG, PT, CKMB, HS TROP, PTT, CBC, CMP, CK #### [address] Neutrophils (Bld) [#/Vol] 4.6 10*3/uL Normal 1.8-7.7 [facility] Comment on above: Performed By: #### D DIMER, MG, PT, CKMB, HS TROP, PTT, CBC, CMP, CK #### [address] Neutrophils/100 WBC (Bld) 62.2 % Normal . [facility] Comment on above: Performed By: #### D DIMER, MG, PT, CKMB, HS TROP, PTT, CBC, CMP, CK #### [address] NRBC% 0.1 /100{WBC} Normal 0-0.5 [facility] Comment on above: Performed By: #### D DIMER, MG, PT, CKMB, HS TROP, PTT, CBC, CMP, CK #### [address] [place] [address] [place] Platelet mean volume (Bld) [Entitic vol] 8.7 fL Normal 6.3-10.7 [facility] Comment on above: Performed By: #### D DIMER, MG, PT, CKMB, HS TROP, PTT, CBC, CMP, CK #### [address] Platelets (Bld) [#/Vol] 271 10*3/uL Normal 150-450 [facility] Comment on above: Performed By: #### D DIMER, MG, PT, CKMB, HS TROP, PTT, CBC, CMP, CK #### [address] RBC (Bld) [#/Vol] 4.92 10*6/uL Normal 3.60-5.00 [facility] Comment on above: Performed By: #### D DIMER, MG, PT, CKMB, HS TROP, PTT, CBC, CMP, CK #### [address] WBC (Bld) [#/Vol] 7.4 10*3/uL Normal 3.8-11.6 [facility] Comment on above: Performed By: #### D DIMER, MG, PT, CKMB, HS TROP, PTT, CBC, CMP, CK #### [address] Comprehensive Metabolic Pane howie 05-02-2022 Albumin [Mass/Vol] 4.0 g/dL Normal 3.2-5.5 [facility] Comment on above: Performed By: #### D DIMER, MG, PT, CKMB, HS TROP, PTT, CBC, CMP, CK #### [address] Albumin/Globulin [Mass ratio] 1.4 {ratio} Normal [facility] Comment on above: Performed By: #### D DIMER, MG, PT, CKMB, HS TROP, PTT, CBC, CMP, CK #### [address] ALP [Catalytic activity/Vol] 56 U/L Normal 32-92 [facility] Comment on above: Performed By: #### D DIMER, MG, PT, CKMB, HS TROP, PTT, CBC, CMP, CK #### [facility] [address] ALT [Catalytic activity/Vol] 21 U/L Normal 10-60 [facility] Comment on above: Performed By: #### D DIMER, MG, PT, CKMB, HS TROP, PTT, CBC, CMP, CK #### [facility] [address] Anion gap [Moles/Vol] 11.4 mmol/L Normal 6.0-15.0 [facility] Comment on above: Performed By: #### D DIMER, MG, PT, CKMB, HS TROP, PTT, CBC, CMP, CK #### [address] AST [Catalytic activity/Vol] 20 U/L Normal 10-42 [facility] Comment on above: Performed By: #### D DIMER, MG, PT, CKMB, HS TROP, PTT, CBC, CMP, CK #### [address] Bilirubin [Mass/Vol] 0.5 mg/dL Normal 0.3-1.2 [facility] Comment on above: Performed By: #### D DIMER, MG, PT, CKMB, HS TROP, PTT, CBC, CMP, CK #### [address] Calcium [Mass/Vol] 9.4 mg/dL Normal 8.2-10.2 [facility] Comment on above: Performed By: #### D DIMER, MG, PT, CKMB, HS TROP, PTT, CBC, CMP, CK #### [address] Chloride [Moles/Vol] 100 mmol/L Normal 95-114 [facility] Comment on above: Performed By: #### D DIMER, MG, PT, CKMB, HS TROP, PTT, CBC, CMP, CK #### [facility] [address] CO2 [Moles/Vol] 27.5 mmol/L Normal 22.0-30.0 [facility] Comment on above: Performed By: #### D DIMER, MG, PT, CKMB, HS TROP, PTT, CBC, CMP, CK #### [facility] [address] Creatinine [Mass/Vol] 0.79 mg/dL Normal 0.44-1.03 [facility] Comment on above: Performed By: #### D DIMER, MG, PT, CKMB, HS TROP, PTT, CBC, CMP, CK #### [address] Creatinine Clr Calc Pharmacy 67.96 [facility] Comment on above: Performed By: #### D DIMER, MG, PT, CKMB, HS TROP, PTT, CBC, CMP, CK #### [address] Estimated GFR ( Janet > 60 [facility] Comment on above: Result Comment: GFR estimated reference range: According to KDOQI guidelines, <60 ml/min/1.73m2 is sufficient to diagnose a patient with chronic kidney disease. Performed By: #### D DIMER, MG, PT, CKMB, HS TROP, PTT, CBC, CMP, CK #### [address] Estimated GFR (Non- Am > 60 [facility] Comment on above: Performed By: #### D DIMER, MG, PT, CKMB, HS TROP, PTT, CBC, CMP, CK #### [address] Globulin (S) [Mass/Vol] 2.9 g/dL [facility] Comment on above: Performed By: #### D DIMER, MG, PT, CKMB, HS TROP, PTT, CBC, CMP, CK #### [address] Glucose [Mass/Vol] 87 mg/dL Normal 70-100 [facility] Comment on above: Result Comment: [facility] Glucose Reference Range is dependent on time and content of last meal. Glucose of more than 200 mg/dL in a nonstressed, ambulatory subject supports the diagnosis of Diabetes Mellitus. ADA recommended reference range Performed By: #### D DIMER, MG, PT, CKMB, HS TROP, PTT, CBC, CMP, CK #### [facility] [address] Potassium [Moles/Vol] 3.9 mmol/L Normal 3.5-5.1 [facility] Comment on above: Performed By: #### D DIMER, MG, PT, CKMB, HS TROP, PTT, CBC, CMP, CK #### [facility] [address] Protein [Mass/Vol] 6.9 g/dL Normal 6.1-7.9 [facility] Comment on above: Performed By: #### D DIMER, MG, PT, CKMB, HS TROP, PTT, CBC, CMP, CK #### [facility] [address] Sodium [Moles/Vol] 135 mmol/L Low 136-146 [facility] Comment on above: Performed By: #### D DIMER, MG, PT, CKMB, HS TROP, PTT, CBC, CMP, CK #### [facility] [address] Urea nitrogen [Mass/Vol] 21 mg/dL Normal 9-23 [facility] Comment on above: Performed By: #### D DIMER, MG, PT, CKMB, HS TROP, PTT, CBC, CMP, CK #### [facility] [address] [place] [address] [place] Creatine Kinaseon 05-02-2022 CK [Catalytic activity/Vol] 50 U/L Normal 22-269 [facility] Comment on above: Performed By: #### D DIMER, MG, PT, CKMB, HS TROP, PTT, CBC, CMP, CK #### [place] [address] [place] Creatine kinase [Enzymatic a ctivity/volume] in Serum or PlasmaOrdered By: Oswaldo Deleon on 05-02-2022 CK [Catalytic activity/Vol] 50 U/L 22-269 [facility] Creatinine Kinase MBon 05-02 CK.MB [Mass/Vol] 0.9 ng/mL Normal 0.6-6.3 [facility] Comment on above: Performed By: #### D DIMER, MG, PT, CKMB, HS TROP, PTT, CBC, CMP, CK #### [facility] [address] CKMB Relative Index 1.8 % Normal 0.00-2.50 [facility] Comment on above: Performed By: #### D DIMER, MG, PT, CKMB, HS TROP, PTT, CBC, CMP, CK #### [address] Creatinine and Glomerular fi ltration rate.predicted panel (S/P/Bld)Ordered By: Oswaldo Deleon on 05-02-2022 Creatinine [Mass/Vol] 0.79 mg/dL 0.44-1.03 [facility] D-Dimer High Sensitivityon 0 05-02-2022 D-Dimer High Sensitivity < 200 Normal 0-243 [facility] Comment on above: Result Comment: The reference [...] patients due to co-morbid conditions. PERFORMED BY: [place] [address] PATHOLOGIST RENOVATOR MACHINE OPERATOR MATTHEW SHAFER M.D. Performed By: #### D DIMER, MG, PT, CKMB, HS TROP, PTT, CBC, CMP, CK #### [place] [id number] [facility] ECG 12 lead ECGon 05-02-2022 ECG 12 lead ECG [facility] [place] [address] [place] [address] Electrocardiograph Report Signed Patient: Giselle Georges MR#: [id number] : 1960 Acct:[id number] Age/Sex: 61 / F ADM Date: 05/02/22 Loc: ER Room: Type: [facility] ER Attending Dr: Ordering Provider: Oswaldo Deleon [...] was found Confirmed by Oswaldo Deleon DO ([id number]) on 05/03/2022 1:25:30 AM Referred By: Electronically Signed By:Oswaldo Deleon DO Transcribed By: MUS Signed By Oswaldo Deleon DO 3 0125 Normal [facility] Eosinophils Auto (Bld) [#/Vo l]Ordered By: Oswaldo Deleon on 05-02-2022 Eosinophils (Bld) [#/Vol] 0.4 10*3/uL 0.0-0.45 [facility] Eosinophils/100 WBC Auto (Bl d)Ordered By: Oswaldo Deleon on 05-02-2022 Eosinophils/100 WBC (Bld) 4.9 % . [facility] Erythrocyte distribution wid th Auto (RBC) [Ratio]Ordered By: Oswaldo Deleon on 05-02-2022 Erythrocyte distribution width (RBC) [Ratio] 13.0 % 11.9-15.3 [facility] Estimated glomerular filtrat ion rate (GFR) non- AmericanOrdered By: Oswaldo Deleon on 05-02-2022 GFR/1.73 sq M.predicted among non-blacks MDRD (S/P/Bld) [Vol rate/Area] > 60 mL/Min [facility] Globulin Calc (S) [Mass/Vol] Ordered By: Oswaldo Deleon on 05-02-2022 Globulin (S) [Mass/Vol] 2.9 g/dL [facility] Hematocrit Auto (Bld) [Volum e fraction]Ordered By: Oswaldo Deleon on 05-02-2022 Hematocrit (Bld) [Volume fraction] 43.7 % 34.0-46.4 [facility] Hemoglobin [Mass/volume] in BloodOrdered By: Oswaldo Deleon on 05-02-2022 Hemoglobin (Bld) [Mass/Vol] 14.7 g/dL 11.8-15.4 [facility] Laboratory - Chemistry and C hemistry - challengeOrdered By: Oswaldo Deleon on 05-02-2022 Magnesium [Mass/Vol] 2.0 mg/dL 1.6-2.6 [facility] - CoagulationOrde red By: Oswaldo Deleon on 05-02-2022 PT Coag (PPP) [Time] 11.6 s 9.0-12.9 [facility] Leukocytes [#/volume] correc nikhil for nucleated erythrocytes in Blood by Automated counOrdered By: Oswaldo Deleon on 05-02-2022 WBC corrected for nucl RBC Auto (Bld) [#/Vol] 7.4 10*3/uL 3.8-11.6 [facility] Lymphocytes Auto (Bld) [#/Vo l]Ordered By: Oswaldo Deleon on 05-02-2022 Lymphocytes (Bld) [#/Vol] 1.6 10*3/uL 1.00-4.8 [facility] Lymphocytes/100 WBC Auto (Bl d)Ordered By: Oswaldo Deleon on 05-02-2022 Lymphocytes/100 WBC (Bld) 22.0 % . [facility] MCH Auto (RBC) [Entitic mass ]Ordered By: Owsaldo Deleon on 05-02-2022 MCH (RBC) [Entitic mass] 30.0 pg 24.7-34.3 [facility] MCHC Auto (RBC) [Mass/Vol]Or dered By: Oswaldo Deleon on 05-02-2022 MCHC (RBC) [Mass/Vol] 33.7 g/dL 32.0-35.0 [facility] MCV Auto (RBC) [Entitic vol] Ordered By: Oswaldo Deleon on 05-02-2022 MCV (RBC) [Entitic vol] 88.9 fL 80-100 [facility] Magnesiumon 05-02-2022 Magnesium [Mass/Vol] 2.0 mg/dL Normal 1.6-2.6 [facility] Comment on above: Result Comment: PERF ORMED BY: [place] [address] PATHOLOGIST RENOVATOR MACHINE OPERATOR MATTHEW SHAFER M.D. Performed By: #### D DIMER, MG, PT, CKMB, HS TROP, PTT, CBC, CMP, CK #### [address] Monocyte distribution width [Entitic volume] in Blood by AutomatedOrdered By: Oswaldo Deleon on 05-02-2022 Monocyte distribution width Auto (Bld) [Entitic vol] 18.10 % 0.00-20.00 [facility] Monocytes Auto (Bld) [#/Vol] Ordered By: Oswaldo Deleon on 05-02-2022 Monocytes (Bld) [#/Vol] 0.8 10*3/uL 0.0-0.8 [facility] Monocytes/100 WBC Auto (Bld) Ordered By: Oswaldo Deleon on 05-02-2022 Monocytes/100 WBC (Bld) 10.2 % . [facility] Neutrophils Auto (Bld) [#/Vo l]Ordered By: Oswaldo Deleon on 05-02-2022 Neutrophils (Bld) [#/Vol] 4.6 10*3/uL 1.8-7.7 [facility] Neutrophils/100 WBC Auto (Bl d)Ordered By: Oswaldo Deleon on 05-02-2022 Neutrophils/100 WBC (Bld) 62.2 % . [facility] No Panel InformationOrdered By: Oswaldo Deleon on 05-02-2022 D-Dimer Quantitative (PE/DVT) < 200 ng/mL 0-243 [facility] Comment on above: The reference range for [...] conditions. Estimated GFR () > 60 mL/Min [facility] Comment on above: GFR estimated refere nce range: According to KDOQI guidelines, <60 ml/min/1.73m2 is sufficient to diagnose a patient with chronic kidney disease. Pharmacy Creatinine Clearance (Chem 67.96 [facility] Nucleated erythrocytes [Pres ence] in Blood by Automated countOrdered By: Oswaldo Deleon on 05-02-2022 Nucleated RBC Auto Ql (Bld) 0.1 /100{WBC} 0-0.5 [facility] Partial Thromboplastin Timeo n 05-02-2022 aPTT Coag (Bld) [Time] 30.0 s Normal 25.1-36.5 [facility] Comment on above: Performed By: #### D DIMER, MG, PT, CKMB, HS TROP, PTT, CBC, CMP, CK #### [facility] [address] Platelet mean volume Auto (B ld) [Entitic vol]Ordered By: Oswaldo Deleon on 05-02-2022 Platelet mean volume (Bld) [Entitic vol] 8.7 fL 6.3-10.7 [facility] Platelet poor plasma interna tional normalized ratio (INR) by coagulation assay (relatOrdered By: Oswaldo Deleon on 05-02-2022 INR Coag (PPP) [Relative time] 1.0 {INR} [facility] Comment on above: INR Therapeutic Rang e [...] 05-02-2022 Platelets (Bld) [#/Vol] 271 10*3/uL 150-450 [facility] Protein [Mass/volume] in Ser um or PlasmaOrdered By: Oswaldo Deleon on 05-02-2022 Protein [Mass/Vol] 6.9 g/dL 6.1-7.9 [facility] Prothrombin Time INRon 05-02 INR Coag (PPP) [Relative time] 1.0 {INR} Normal [facility] Comment on above: Result Comment: INR Therapeutic [...] HS TROP, PTT, CBC, CMP, CK #### [facility] [address] PT Coag (PPP) [Time] 11.6 s Normal 9.0-12.9 [facility] Comment on above: Performed By: #### D DIMER, MG, PT, CKMB, HS TROP, PTT, CBC, CMP, CK #### [facility] [address] RBC Auto (Bld) [#/Vol]Ordere d By: Oswaldo Deleon on 05-02-2022 RBC (Bld) [#/Vol] 4.92 10*6/uL 3.60-5.00 [facility] Serum or plasma alanine reyna otransferase measurement without P-5'-P (enzymatic activiOrdered By: Oswaldo Deleon on 05-02-2022 ALT No additional P-5'-P [Catalytic activity/Vol] 21 U/L 10-60 [facility] Serum or plasma albumin/glob ulin mass ratioOrdered By: Oswaldo Deleon on 05-02-2022 Albumin/Globulin [Mass ratio] 1.4 {ratio} [facility] Serum or plasma alkaline raphael sphatase measurement (enzymatic activity/volume)Ordered By: Oswaldo Deleon on 05-02-2022 ALP [Catalytic activity/Vol] 56 U/L 32-92 [facility] Serum or plasma anion gap de terminationOrdered By: Oswaldo Deleon on 05-02-2022 Anion gap [Moles/Vol] 11.4 mmol/L 6.0-15.0 [facility] Serum or plasma aspartate am inotransferase measurement (enzymatic activity/volume)Ordered By: Oswaldo Deleon on 05-02-2022 AST [Catalytic activity/Vol] 20 U/L 10-42 [facility] Serum or plasma calcium shellie urement (mass/volume)Ordered By: Oswaldo Deleon on 05-02-2022 Calcium [Mass/Vol] 9.4 mg/dL 8.2-10.2 [facility] Serum or plasma chloride isidro surement (moles/volume)Ordered By: Oswaldo Deleon on 05-02-2022 Chloride [Moles/Vol] 100 mmol/L 95-114 [facility] Serum or plasma creatine kin ase MB (CKMB)/total creatine kinase (CK) ratio by calculaOrdered By: Oswaldo Deleon on 05-02-2022 CK.MB Calc [Catalytic fraction] 1.8 % 0.00-2.50 [facility] Serum or plasma creatine kin ase MB measurement (mass/volume)Ordered By: Oswaldo Deleon on 05-02-2022 CK.MB [Mass/Vol] 0.9 ng/mL 0.6-6.3 [facility] Serum or plasma glucose shellie urement (mass/volume)Ordered By: Oswaldo Deleon on 05-02-2022 Glucose [Mass/Vol] 87 mg/dL 70-100 [facility] Comment on above: ADA recommended refe rence rangeRandom Glucose Reference Range is dependent on time and content of last meal. Glucose of more than 200 mg/dL in a nonstressed, ambulatory subject supports the diagnosis of Diabetes Mellitus. Serum or plasma potassium me asurement (moles/volume)Ordered By: Oswaldo Deleon on 05-02-2022 Potassium [Moles/Vol] 3.9 mmol/L 3.5-5.1 [facility] Serum or plasma sodium measu rement (moles/volume)Ordered By: Oswaldo Deleon on 05-02-2022 Sodium [Moles/Vol] 135 mmol/L 136-146 [facility] Serum or plasma total biliru bin measurement (mass/volume)Ordered By: Oswaldo Deleon on 05-02-2022 Bilirubin [Mass/Vol] 0.5 mg/dL 0.3-1.2 [facility] Serum or plasma total carbon dioxide measurement (moles/volume)Ordered By: Oswaldo Deleon on 05-02-2022 CO2 [Moles/Vol] 27.5 mmol/L 22.0-30.0 [facility] Serum or plasma urea nitroge n measurement (mass/volume)Ordered By: Oswaldo Deleon on 05-02-2022 Urea nitrogen [Mass/Vol] 21 mg/dL 9-23 [facility] Troponin I High Sensitivityo n 05-02-2022 Troponin I High Sensitivity 3 pg/mL Normal 0-15 [facility] Comment on above: Result Comment: PERF ORMED BY: [facility] [address] [place] [address] PATHOLOGIST RENOVATOR MACHINE OPERATOR MATTHEW SHAFER M.D. Performed By: #### D DIMER, MG, PT, CKMB, HS TROP, PTT, CBC, CMP, CK #### [facility] [address] [place] [address] [place] Troponin I.cardiac [Mass/vol ume] in Serum or Plasma by High sensitivity methodOrdered By: Oswaldo Deleon on 05-02-2022 Troponin I.cardiac High sensitivity method [Mass/Vol] 3 pg/mL 0-15 [facility] WBC Auto (Bld) [#/Vol]Ordere d By: Oswaldo Deleon on 05-02-2022 WBC (Bld) [#/Vol] 7.4 10*3/uL 3.8-11.6 [facility] XR chest 2V*on 05-02-2022 XR chest 2V* [facility] [place] [address] [place] [address] XRay Report Signed Patient: Giselle Georges MR#: [id number] : 1960 Acct:[id number] Age/Sex: 61 / F ADM Date: 05/02/22 Loc: ER Room: Type: [facility] ER Attending Dr: Copies to: Oswaldo [...] Ney Young M.D.05/02/2022 8:17 PM Dictation Location: [place] [address] Transcribed By: [facility] 05/02/222016 Dictated By: Ney Young DO 05/02/222015 Signed By: 05/02/222016 [facility] XR TSPINE MIN 4 VIEWSon 01-22 XR [...] by: GENESIS BELLO Date: 2022-02-07 15:12 Normal [facility] SCREENING MAMMOGRAM W/NUPUR, BILATERAL*on 12-06-2021 SCREENING MAMMOGRAM [...] VERY IMPORTANT TO YOUR HEALTH. THE CURRENT [place] [employer] OF [employer] AND N[employer] COMPREHENSIVE [employer] NETWORK GUIDELINES RECOMMENDS ANNUAL MAMMOGRAPHY BEGINNING AT AGE 40 THIS FACILITY USES A REMINDER SYSTEM TO ENSURE ALL PATIENTS RECEIVE REMINDER NOTIFICATIONS AT THE APPROPRIATE TIME BASED ON THE RECOMMENDATIONS OF THIS EXAM. 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 Accredited by the ACR and FDA. Report reported and signed by Paulino Will on 12/06/[address] [facility] CT facial bones wo conon CT facial bones wo con [facility] [place] [address] CT Scan Report Signed Patient: Giselle Georges MR#: [id number] : 1960 Acct:[id number] Age/Sex: 61 / F ADM Date: 11/09/21 [...] Angeles Bower M.D.11/09/2021 2:13 PM Dictation Location: [place] [address] Transcribed By: JAE 11/09/21 1413 Dictated By: Angeles Bower MD 11/09/21 1403 Signed By: 11/09/21 1413 Normal [facility] Basophils Auto (Bld) [#/Vol] Ordered By: Ken Ortiz on 10-04-2021 Basophils (Bld) [#/Vol] 0.0 10*3/uL 0.0-0.2 [facility] Basophils/100 WBC Auto (Bld) Ordered By: Ken Ortiz on 10-04-2021 Basophils/100 WBC (Bld) 0.7 % . [facility] Blood hemoglobin measurement (mass/volume)Ordered By: Ken Ortiz on 10-04-2021 Hemoglobin (Bld) [Mass/Vol] 14.6 g/dL 11.8-15.4 [facility] Blood leukocytes automated c ount (number/volume)Ordered By: Ken Ortiz on 10-04-2021 WBC (Bld) [#/Vol] 4.4 10*3/uL 4.5-11.0 [facility] Body fluid albumin measureme nt (mass/volume)Ordered By: Ken Ortiz on 10-04-2021 Albumin (Body fld) [Mass/Vol] 3.7 g/dL 3.2-5.5 [facility] C reactive protein [Mass/vol ume] in Serum or PlasmaOrdered By: Ken Ortiz on 10-04-2021 CRP [Mass/Vol] 0.6 mg/dL 0.0-1.0 [facility] Creatinine and Glomerular fi ltration rate.predicted panel (S/P/Bld)Ordered By: Ken Ortiz on 10-04-2021 Creatinine [Mass/Vol] 0.74 mg/dL 0.44-1.03 [facility] Elastase.pancreatic [Mass/ma ss] in StoolOrdered By: Ken Ortiz on 10-04-2021 Elastase.pancreatic (Stl) [Mass/Mass] >500 >200 [facility] Comment on above: Result Units: ug Luz st./g Severe Pancreatic Insufficiency: <100 Moderate Pancreatic Insufficiency: 100 - 200 Normal: >200 Performed at: [facility] [address] [id number] [employer] Hand: Lamont Young MD, Phone: [phone] Eosinophils Auto (Bld) [#/Vo l]Ordered By: Ken Ortiz on 10-04-2021 Eosinophils (Bld) [#/Vol] 0.2 10*3/uL 0.0-0.45 [facility] Eosinophils/100 WBC Auto (Bl d)Ordered By: Ken Ortiz on 10-04-2021 Eosinophils/100 WBC (Bld) 5.2 % . [facility] Erythrocyte distribution wid th Auto (RBC) [Ratio]Ordered By: Ken Ortiz on 10-04-2021 Erythrocyte distribution width (RBC) [Ratio] 13.1 % 11.9-15.3 [facility] Erythrocyte sedimentation ra te by Photometric methodOrdered By: Ken Ortiz on 10-04-2021 ESR Photometric method (Bld) [Velocity] 5 mm/hr 0-29 [facility] Estimated glomerular filtrat ion rate (GFR) non- AmericanOrdered By: Ken Ortiz on 10-04-2021 GFR/1.73 sq M.predicted among non-blacks MDRD (S/P/Bld) [Vol rate/Area] > 60 mL/Min [facility] Globulin Calc (S) [Mass/Vol] Ordered By: Ken Ortiz on 10-04-2021 Globulin (S) [Mass/Vol] 2.5 g/dL [facility] Hematocrit Auto (Bld) [Volum e fraction]Ordered By: Ken Ortiz on 10-04-2021 Hematocrit (Bld) [Volume fraction] 43.7 % 34.0-46.4 [facility] IgA [Mass/volume] in Serum o r PlasmaOrdered By: Ken Ortiz on 10-04-2021 IgA [Mass/Vol] 168 mg/dL 87-352 [facility] Comment on above: Performed at: [address] [id number] [employer]: Kevin Sanders PhD, Phone: [phone] Laboratory - Hematology and Cell countsOrdered By: Ken Ortiz on 10-04-2021 Nucleated RBC/100 WBC (Bld) [Ratio] 0.0 % 0-0.5 [facility] Lymphocytes Auto (Bld) [#/Vo l]Ordered By: Ken Ortiz on 10-04-2021 Lymphocytes (Bld) [#/Vol] 1.5 10*3/uL 1.00-4.8 [facility] Lymphocytes/100 WBC Auto (Bl d)Ordered By: Ken Ortiz on 10-04-2021 Lymphocytes/100 WBC (Bld) 34.1 % . [facility] MCH Auto (RBC) [Entitic mass ]Ordered By: Ken Ortiz on 10-04-2021 MCH (RBC) [Entitic mass] 29.8 pg 24.7-34.3 [facility] MCHC Auto (RBC) [Mass/Vol]Or dered By: Ken Ortiz on 10-04-2021 MCHC (RBC) [Mass/Vol] 33.5 g/dL 32.0-35.0 [facility] MCV Auto (RBC) [Entitic vol] Ordered By: Ken Ortiz on 10-04-2021 MCV (RBC) [Entitic vol] 88.9 fL 80-100 [facility] Monocytes Auto (Bld) [#/Vol] Ordered By: Ken Ortiz on 10-04-2021 Monocytes (Bld) [#/Vol] 0.4 10*3/uL 0.0-0.8 [facility] Monocytes/100 WBC Auto (Bld) Ordered By: Ken Ortiz on 10-04-2021 Monocytes/100 WBC (Bld) 8.1 % . [facility] Neutrophils Auto (Bld) [#/Vo l]Ordered By: Ken Ortiz on 10-04-2021 Neutrophils (Bld) [#/Vol] 2.3 10*3/uL 1.8-7.7 [facility] Neutrophils/100 WBC Auto (Bl d)Ordered By: Ken Ortiz on 10-04-2021 Neutrophils/100 WBC (Bld) 51.9 % . [facility] No Panel InformationOrdered By: Ken Ortiz on 10-04-2021 Endomysial IgA Antibody Negative Negative [facility] Estimated GFR () > 60 mL/Min [facility] Comment on above: GFR estimated refere nce range: According to KDOQI guidelines, <60 ml/min/1.73m2 is sufficient to diagnose a patient with chronic kidney disease. Pharmacy Creatinine Clearance (Chem N/A [facility] Platelet mean volume Auto (B ld) [Entitic vol]Ordered By: Ken Ortiz on 10-04-2021 Platelet mean volume (Bld) [Entitic vol] 9.2 fL 6.3-10.7 [facility] Platelets Auto (Bld) [#/Vol] Ordered By: Ken Ortiz on 10-04-2021 Platelets (Bld) [#/Vol] 286 10*3/uL 150-450 [facility] Protein [Mass/volume] in Ser um or PlasmaOrdered By: Ken Ortiz on 10-04-2021 Protein [Mass/Vol] 6.2 g/dL 6.1-7.9 [facility] RBC Auto (Bld) [#/Vol]Ordere d By: Ken Ortiz on 10-04-2021 RBC (Bld) [#/Vol] 4.92 10*6/uL 3.60-5.00 [facility] Serum gliadin peptide IgA an tibody assay (units/volume)Ordered By: Ken Ortiz on 10-04-2021 Gliadin peptide IgA Qn (S) 4 units 0-19 [facility] Comment on above: Negative 0 - 19 Weak Positive 20 - 30 Moderate to Strong Positive >30 Serum gliadin peptide IgG an tibody assay (units/volume)Ordered By: Ken Ortiz on 10-04-2021 Gliadin peptide IgG Qn (S) 2 units 0-19 [facility] Comment on above: Negative 0 - 19 Weak Positive 20 - 30 Moderate to Strong Positive >30 Serum or plasma alanine reyna otransferase measurement without P-5'-P (enzymatic activiOrdered By: Ken Ortiz on 10-04-2021 ALT No additional P-5'-P [Catalytic activity/Vol] 16 U/L 10-60 [facility] Serum or plasma albumin/glob ulin mass ratioOrdered By: Ken Ortiz on 10-04-2021 Albumin/Globulin [Mass ratio] 1.5 {ratio} [facility] Serum or plasma alkaline raphael sphatase measurement (enzymatic activity/volume)Ordered By: Ken Ortiz on 10-04-2021 ALP [Catalytic activity/Vol] 55 U/L 32-92 [facility] Serum or plasma aspartate am inotransferase measurement (enzymatic activity/volume)Ordered By: Ken Ortiz on 10-04-2021 AST [Catalytic activity/Vol] 18 U/L 10-42 [facility] Serum or plasma calcium shellie urement (mass/volume)Ordered By: Ken Ortiz on 10-04-2021 Calcium [Mass/Vol] 9.7 mg/dL 8.2-10.2 [facility] Serum or plasma chloride isidro surement (moles/volume)Ordered By: Ken Ortiz on 10-04-2021 Chloride [Moles/Vol] 101 mmol/L 95-114 [facility] Serum or plasma glucose shellie urement (mass/volume)Ordered By: Ken Ortiz on 10-04-2021 Glucose [Mass/Vol] 85 mg/dL 70-100 [facility] Comment on above: ADA recommended refe rence range Random Glucose Reference Range is dependent on time and content of last meal. Glucose of more than 200 mg/dL in a nonstressed, ambulatory subject supports the diagnosis of Diabetes Mellitus. Serum or plasma potassium me asurement (moles/volume)Ordered By: Ken Ortiz on 10-04-2021 Potassium [Moles/Vol] 4.4 mmol/L 3.5-5.1 [facility] Serum or plasma sodium measu rement (moles/volume)Ordered By: Ken Ortiz on 10-04-2021 Sodium [Moles/Vol] 138 mmol/L 136-146 [facility] Serum or plasma total biliru bin measurement (mass/volume)Ordered By: Ken Ortiz on 10-04-2021 Bilirubin [Mass/Vol] 0.5 mg/dL 0.3-1.2 [facility] Serum or plasma total carbon dioxide measurement (moles/volume)Ordered By: Ken Ortiz on 10-04-2021 CO2 [Moles/Vol] 30.4 mmol/L 22.0-30.0 [facility] Serum or plasma urea nitroge n measurement (mass/volume)Ordered By: Ken Ortiz on 10-04-2021 Urea nitrogen [Mass/Vol] 13 mg/dL 9-23 [facility] Serum tissue transglutaminas e (tTG) IgA antibody assay (units/volume)Ordered By: Ken Ortiz on 10-04-2021 tTG IgA Qn (S) <2 U/mL 0-3 [facility] Comment on above: Negative 0 - 3 Weak Positive 4 - 10 Positive >10 Tissue Transglutaminase (tTG) has been identified as the endomysial antigen. Studies have demonstr- ated that endomysial IgA antibodies have over 99% specificity for gluten sensitive enteropathy. Serum tissue transglutaminas e (tTG) IgG antibody assay (units/volume)Ordered By: Ken Ortiz on 10-04-2021 tTG IgG Qn (S) <2 U/mL 0-5 [facility] Comment on above: Negative 0 - 5 Weak Positive 6 - 9 Positive >9 Vital Signs Date Time Vital Sign Value Performing Clinician Facility 07-31-2023 08:37-0400 Body height 152.4 cm [facility] 07-31-2023 08:37-0400 Body mass index (BMI) [Ratio] 27.3 kg/m2 [facility] 07-31-2023 08:37-0400 Body weight 63.5 kg [facility] 07-31-2023 08:37-0400 Diastolic blood pressure 77 mm[Hg] [facility] 07-31-2023 08:37-0400 Heart rate 71 /min [facility] 07-31-2023 08:37-0400 SaO2% (BldA) [Mass fraction] 99 % [facility] 07-31-2023 08:37-0400 Systolic blood pressure 136 mm[Hg] [facility] 07-11-2023 10:22-0400 Body height 152.4 cm [facility] 07-11-2023 10:22-0400 Body mass index (BMI) [Ratio] 28.2 kg/m2 [facility] 07-11-2023 10:22-0400 Body weight 65.48 kg [facility] 07-11-2023 10:22-0400 Diastolic blood pressure 81 mm[Hg] [facility] 07-11-2023 10:22-0400 Heart rate 67 /min [facility] 07-11-2023 10:22-0400 Systolic blood pressure 146 mm[Hg] [facility] 05-08-2023 14:36-0500 Body height 152.4 cm Paul Visci DO Work Phone: [facility] 05-08-2023 14:36-0500 Body mass index (BMI) [Ratio] 28.32 kg/m2 Paul Visci DO Work Phone: [facility] 05-08-2023 14:36-0500 Body weight 65.77 kg Paul Visci DO Work Phone: [facility] 05-08-2023 14:36-0500 Diastolic blood pressure 84 mm[Hg] Paul Visci DO Work Phone: [facility] 05-08-2023 14:36-0500 Systolic blood pressure 124 mm[Hg] Paul Visci DO Work Phone: [facility] 04-24-2023 10:05-0500 Body mass index (BMI) [Ratio] 28.55 kg/m2 Alice Polo DO Work Phone: [facility] 04-24-2023 10:05-0500 Body weight 66.32 kg Alice Luna-Cullman DO Work Phone: [facility] 04-24-2023 10:05-0500 Diastolic blood pressure 64 mm[Hg] Alice Luna-Cullman DO Work Phone: [facility] 04-24-2023 10:05-0500 Heart rate 64 /min Alice Luna-Cullman DO Work Phone: [facility] 04-24-2023 10:05-0500 SaO2% (BldA) [Mass fraction] 98 % Alice Luna-Cullman DO Work Phone: [facility] 04-24-2023 10:05-0500 Systolic blood pressure 112 mm[Hg] Alice Luna-Cullman DO Work Phone: [facility] 12-09-2022 10:00-0400 Body height 152.4 cm Gabe Gonzalez Other [employer] Other 12-09-2022 10:00-0400 Body mass index (BMI) [Ratio] 32.22 kg/m2 Gabe Gonzalez Other [employer] Other 12-09-2022 10:00-0400 Body weight 74.84 kg Gabe Gonzalez Other [employer] Other 12-09-2022 10:00-0400 Diastolic blood pressure 81 mm[Hg] Gabe Gonzalez Other [employer] Other 12-09-2022 10:00-0400 Systolic blood pressure 129 mm[Hg] Gabe Scovanner Other [employer] Other 09-03-2022 13:50-0400 Diastolic blood pressure 79 mm[Hg] DO Alice Luna-Cullman Work Phone: [facility] 09-03-2022 13:50-0400 Heart rate 56 /min DO Alice Luna-Cullman Work Phone: [facility] 09-03-2022 13:50-0400 SaO2% (BldA) [Mass fraction] 100 % DO Alice Luna-Cullman Work Phone: [facility] 09-03-2022 13:50-0400 Systolic blood pressure 125 mm[Hg] DO Alice Luna-Cullman Work Phone: [facility] 09-03-2022 12:25-0400 Body height 152.4 cm DO Alice Luna-Cullman Work Phone: [facility] 09-03-2022 12:25-0400 Body temperature 97.9 [degF] DO Alice Luna-Cullman Work Phone: [facility] 09-03-2022 12:25-0400 Body weight 72.12 kg DO Alice Luna-Cullman Work Phone: [facility] 09-03-2022 12:25-0400 Respiratory rate 16 /min DO Alice Luna-Cullman Work Phone: [facility] 05-02-2022 20:00-0500 Diastolic blood pressure 86 mm[Hg] DO Alice Luna-Cullman Work Phone: [facility] 05-02-2022 20:00-0500 Heart rate 66 /min DO Alice Luna-Cullman Work Phone: [facility] 05-02-2022 20:00-0500 Respiratory rate 20 /min DO Alice Luna-Cullman Work Phone: [facility] 05-02-2022 20:00-0500 SaO2% (BldA) [Mass fraction] 99 % DO Alice Luna-Cullman Work Phone: [facility] 05-02-2022 20:00-0500 Systolic blood pressure 137 mm[Hg] DO Alice Luna-Cullman Work Phone: [facility] 05-02-2022 16:29-0500 Body height 152.4 cm DO Alice Luna-Cullman Work Phone: [facility] 05-02-2022 16:29-0500 Body temperature 97.5 [degF] DO Alice Luna-Cullman Work Phone: [facility] 05-02-2022 16:29-0500 Body weight 72.12 kg DO Alice Luna-Cullman Work Phone: [facility] 11-09-2021 13:34-0400 Body height 152.4 cm DO Alice Luna-Cullman Work Phone: [facility] 11-09-2021 13:34-0400 Body temperature 98 [degF] DO Alice Luna-Cullman Work Phone: [facility] 11-09-2021 13:34-0400 Body weight 71 kg DO Alice Luna-Cullman Work Phone: [facility] 11-09-2021 13:34-0400 Diastolic blood pressure 80 mm[Hg] DO Alice Luna-Cullman Work Phone: [facility] 11-09-2021 13:34-0400 Heart rate 78 /min DO Alice Luna-Cullman Work Phone: [facility] 11-09-2021 13:34-0400 Respiratory rate 18 /min DO Alice Luna-Cullman Work Phone: [facility] 11-09-2021 13:34-0400 SaO2% (BldA) [Mass fraction] 97 % DO Aliec Luna-Cullman Work Phone: [facility] 11-09-2021 13:34-0400 Systolic blood pressure 187 mm[Hg] DO Aliec Luna-Cullman Work Phone: [facility] 12-20-2020 14:15-0400 Body height 152.4 cm Ken Ortiz Other [facility] [employer] Other 12-20-2020 14:15-0400 Body mass index (BMI) [Ratio] 31.05 kg/m2 Ken Ortiz Other [facility] [employer] Other 12-20-2020 14:15-0400 Body weight 72.12 kg Ken Ortiz Other [facility] [employer] Other Encounters Encounter Date Encounter Type Care Provider Facility Start: 07-31-2023 End: 07-31-2023 ambulatory [facility] Work Phone: Start: 07-31-2023 End: 07-31-2023 Patient encounter procedure [facility] Physician [facility] Work Phone: Start: 07-16-2023 End: 07-16-2023 ambulatory PAUL A VISCI Not Available Start: 07-11-2023 End: 07-11-2023 ambulatory [facility] Work Phone: Start: 07-11-2023 End: 07-11-2023 Patient encounter procedure [facility] Physician [facility] Work Phone: Start: 06-09-2023 End: 06-10-2023 [...] encounter status Alice Polo DO Work Phone: [facility] Work Phone: Start: 04-24-2023 End: 04-24-2023 Periodic preventive med est patient 40-64yrs Alice Polo DO Work Phone: [facility] Comment on above: Encounter for preven tative adult health care examination (Primary Dx); Arthritis, lumbar spine; Depression, major, in remission (HCC) ([facility]/HCC); Gastroesophageal reflux disease without esophagitis; Postmenopausal; Hormone replacement therapy; Class 1 obesity Start: 03-31-2023 End: 03-31-2023 ambulatory PAUL A VISCI Not Available Start: 03-06-2023 End: 03-06-2023 ambulatory PAUL A VISCI Not Available Start: 02-06-2023 End: 02-06-2023 ambulatory PAUL A VISCI Not Available Start: 12-09-2022 End: 12-09-2022 ambulatory Gabe Gonzalez Other [employer] Other Start: 12-09-2022 Office outpatient visit 15 minutes Gabe Gonzalez [facility] Gastroenterology Start: 09-26-2022 End: 09-26-2022 ambulatory Alix Perez Facility:[facility] Start: 09-26-2022 End: 09-26-2022 ambulatory DO Alice Polo Work Phone: [facility] Work Phone: Start: 09-26-2022 End: 09-26-2022 Patient encounter procedure DO Alice Polo Work Phone: [facility] Work Phone: Start: 09-04-2022 End: 09-04-2022 ambulatory Edison Monroe Other [employer] Other Start: 09-04-2022 Telephone encounter Edison [facility] Start: 09-03-2022 End: 09-03-2022 ambulatory Alice Jeremy-Cullman Facility:[facility] Start: 09-03-2022 End: 09-03-2022 Admission to same day surgery center DO Alice Luna-Cullman Work Phone: [facility] Work Phone: Start: 08-29-2022 ambulatory ALICE JEREMY FERRER Fac ility:[facility] Start: 06-25-2022 End: 06-25-2022 ambulatory Kne Mendez Facility:[facility] Start: 06-12-2022 End: 06-12-2022 ambulatory Ken Mendez Facility:[facility] Start: 06-12-2022 End: 06-12-2022 ambulatory DO Alice Luna-Cullman Work Phone: [facility] Work Phone: Start: 06-12-2022 End: 06-12-2022 Patient encounter procedure DO Alice Luna-Cullman Work Phone: [facility] Work Phone: Start: 05-30-2022 End: 05-31-2022 ambulatory ALICE FERRER Facility:[facility] Start: 05-21-[address] Alice Polo Facility:[facility] Start: 05-14-2022 End: 05-14-2022 ambulatory ALICE JEREMY FERRER Facility: Start: 05-10-[address] Alice Polo Facility:[id number] Start: 05-07-2022 End: 05-07-2022 ambulatory Alice Jeremy-Nabil Facility:[facility] Start: 05-07-2022 End: 05-07-2022 ambulatory DO Alice Luna-Cullman Work Phone: [facility] Work Phone: Start: 05-07-2022 End: 05-07-2022 Patient encounter procedure DO Alice Luna-Cullman Work Phone: [facility] Work Phone: Start: 05-02-2022 End: 05-02-2022 Emergency department patient visit Oswaldo Deleon Facility:[facility] Start: 05-02-2022 End: 05-02-2022 Emergency department patient visit DO Alice Luna-Nabil Work Phone: [facility] Work Phone: Start: 05-02-2022 End: 05-03-2022 ambulatory ALICE LUNA EMERY Facility:[facility] Start: 04-16-2022 End: 04-16-2022 ambulatory ALICE LUNA EMERY Facility:[facility] Start: 02-07-2022 End: 02-08-2022 ambulatory ALICE LUNA EMERY Facility:[facility] Start: 11-15-2021 End: 11-16-2021 ambulatory JONI MAHMOOD . Facility:[facility] Start: 11-09-2021 End: 11-09-2021 Emergency department patient visit Rm Pina Facility:[facility] Start: 11-09-2021 End: 11-09-2021 Emergency department patient visit DO Alice Luna-Nabil Work Phone: [facility] Start: 10-16-2021 End: 10-16-[address] ARNAV COREA . Facility:[facility] Start: 10-11-2021 End: 10-11-2021 ambulatory Ken Ortiz Other [employer] Other Start: 10-11-2021 Telephone encounter Ken Ortiz [facility] Start: 10-04-2021 End: 10-04-2021 Patient encounter procedure DO Alice Luna-Cullman Work Phone: [facility] [place] Start: 10-03-2021 End: 10-03-2021 ambulatory Ken Ortiz Other [employer] Other Start: 10-03-2021 Telephone encounter Ken Ortiz [facility] Gastroenter[facility] Start: 09-20-2021 End: 09-21-2021 ambulatory JONI MAHMOOD . Facility: Start: 02-26-2021 End: 02-26-2021 ambulatory Ken Ortiz Other [employer] Other Start: 02-26-2021 Telephone encounter Ken Ronaldokaveh [facility] Gastroenter[facility] Start: 12-20-2020 Office outpatient visit 25 minutes Ken Ronaldokaveh [facility] Gastroenter[facility] Procedures Date Procedure Procedure Detail Performing Clinician Start: 12-23-2022 Mammography Alice Luna-Nabil DO Work Phone: Start: 09-03-2022 Esophagogastroduodenoscopy DO Alice Luna-Cullman Work Phone: Start: 05-02-2022 Plain chest X-ray DO Alice Jeremy-Cullman Work Phone: Start: 11-09-2021 CT of facial bones without contrast DO S love Luna-Cullman Work Phone: Start: 12-29-2020 Colonoscopy Alice Luna-Cullman DO Work Phone: Plan of Treatment Date Care Activity Detail Author Start: 12-29-2030 Screening for malignant neoplasm of colon [facility] Start: 04-27-2024 End: 04-27-2024 Patient encounter procedure 04/27/2024 10:00 AM EST Office Visit [facility] [address] [place] [id number] Alice Polo, DO [address] [place] [address] [facility] Start: 12-24-2023 Screening for malignant neoplasm of breast Mammogram [facility] Start: 04-28-2023 End: 04-28-2023 Patient encounter procedure 04/28/2023 9:30 AM EST Office Visit [facility] [address] [place] [phone] Nighat Paul Thakur, DO [address] [place] [address] BMI 29.0-29.9,adult [facility] Comment on above: BMI 29.0-29.9,adult Start: 09-03-2022 [facility] Start: 1960 Screening for malignant neoplasm of colon [facility] Patient Education [facility] Work Phone: Patient referral [facility] Work Phone: Immunizations Immunization Date Immunization Notes Care Provider Fa cility 12-25-2022 RSV, recombinant, protein subunit RSVpreF, adjuvant reconstitu, 120mcg/0.5mL, PF (Arexvy) Alice Luna-Cullman DO Work Phone: [facility] 05-28-2021 zoster vaccine recombinant Alice Luna-Cullman DO Work Phone: [facility] 02-07-2021 zoster vaccine recombinant Alice Luna-Cullman DO Work Phone: [facility] 06-29-2020 COVID-19 mRNA, Comirnaty (Pfizer) DO Alice Luna-Cullman Work Phone: [facility] 06-09-2020 COVID-19 mRNA, Comirnaty (Pfizer) DO Alice Luna-Cullman Work Phone: [facility] 06-29-2015 tetanus toxoid, redu yoselin diphtheria toxoid, and acellular pertussis vaccine, adsorbed Alice Luna-Cullman DO Work Phone: [facility] Payers Date Payer Category Payer Self-pay [id number] 2020 Medicaid [employer] [place] [id number] 2020-Present [address] [place] [address] [id number]. [id number] 1960 Unknown [id number] 2.16.840.1.626229.3.579.2. 356 1962 Unknown [id number] 2.16.840.1.820572.3.579.2. 593 1962 Unknown [id number] 2.16.840.1.613418.3.579.2. 593 1962 Unknown [id number] 2.16.840.1.150466.3.579.2. 593 1962 Unknown [id number] 2.16.840.1.188075.3.579.2. 593 1962 Unknown [id number] 2.16.840.1.303064.3.579.2. 593 1962 Unknown [id number] 2.16.840.1.294639.3.579.2. 593 1962 Unknown [id number] 2.16.840.1.327311.3.579.2. 593 1962 Unknown [id number] 2.16.840.1.762444.3.579.2. 593 1962 Unknown [id number] 2.16.840.1.915305.3.579.2. 593 1962 Unknown [id number] 2.16.840.1.479412.3.579.2. 593 1962 Unknown [id number] 2.16.840.1.044433.3.579.2. 593 1962 Unknown [id number] 2.16.840.1.474080.3.579.2. 1259 1962 Unknown [id number] 2.16.840.1.206734.3.579.2. 1259 1962 Unknown [id number] 2.16.840.1.359112.3.579.2. 1259 1962 Unknown [id number] 2.16.840.1.568608.3.579.2. 1258 1962 Unknown [id number] 2.16.840.1.442044.3.579.2. 1258 1962 Unknown [id number] 2.16.840.1.042007.3.579.2. 1258 1962 Unknown [id number] 2..840.1.682453.3.579.2. 1258 1962 Unknown [id number] 2..840.1.136895.3.579.2. 1258 1962 Unknown [id number] 2.840.1.086872.3.579.2. 9 1959 Medicaid [id number] 1959 Unknown [id number] .840.1.582119.19 Private Health Insurance [id number] Unknown [place] BC/BS [id number] Unknown HCAP/HFA/FAP Active [id number] Unknown [id number] 2.840.1.970059.3.579.2. 531 Unknown [id number] 2.840.1.492121.3.579.2. 531 Unknown [id number] 2.840.1.970478.3.579.2. 531 Unknown [id number] 2.840.1.969062.3.579.2. 531 Unknown [id number] 2.840.1.769000.3.579.2. 531 Unknown [id number] 2.840.1.626218.3.579.2. 531 Unknown [id number] 2.16.840.1.526065.3.579.2. 531 Social History Date Type Detail Facility Start: 04-24-2023 End: 05-05-2023 Sex Assigned At [facility] Work Phone: Start: 11-09-2021 Tobacco smoking stat us [facility] Never smoked tobacco (finding) [facility] Start: 1960 Sex Assigned At Female F [facility] Start: 05-02-2022 End: 09-03-2022 Tobacco smoking status MAIS Ex-smoker (finding) [facility] End: 03-24-2012 History of tobacco use Current smoker [facility] End: 03-24-2012 History of tobacco use Cigarette Smoker [facility] Start: 01-08-2023 Tobacco use and exposure Smokeless tobacco non-user [facility] Start: 04-27-2023 End: 05-05-2023 Alcohol intake Current drinker of alcohol (finding) [facility] Start: 04-24-2023 End: 05-05-2023 History of Social function [facility] Work Phone: How often to you hav e a drink containing alcohol? 2-3 time sa week [facility] Work Phone: How many standard drinks containing alcohol do you have on a typical day? 1 or 2 [facility] How often do you hav e 6 or more drinks on 1 occasion? Never [facility] Start: 04-24-2023 Alcohol Comment Once a week [facility] Start: 12-04-2022 Gender identity Identifies as female gender (finding) [facility] Medical Equipment Procedure Code Equipment Code Equipment Origin al Text Equipment Identifier Dates Tendon repair Tendon/ligament bone anchor, non-bioabsorbable ([id number] [facility] Start: 12-10-2018 Goals Date Patient Goal Desired [...] per pt. COLONOSCOPY 12/29/2020 Normal EGD 10/31/2015 EGD/[place] done by Dr. Ortiz (stenosis of upper [...] LIGATION Dr. Ba WISDOM TOOTH EXTRACTION 1981 [place] teeth impacted Family History Problem Relation Name [...] Severe Depression Heart attack Paternal Grandfather Acute [place] No Known Problems Daughter Healthy Ulcerative colitis [...] yeast vaginitis-Rx diflucan. documented in this encounter [facility] 04-27-2023 History of Presen t illness Narrative [...] Associated Problem(s): Depression, major, in remission (HCC) ([facility]/HCC) -Pt is doing well at this time [...] note were not included. Subjective Patient ID: Gsielle Georges (: 1960) is a 62 y.o. [...] List Diagnosis Class 1 obesity Exercise-induced asthma ([facility]) Arthritis, lumbar spine Gastroesophageal reflux disease without esophagitis Postmenopausal Depression, major, in remission (HCC) ([facility]) Hormone replacement therapy Review of [...] . Postmenopausal Depression, major, in remission (HCC) ([facility]) Overview Prescribed citalopram Current Assessment & Plan -Pt is doing well at this time on current dose of celexa. Based on review of patient's medications and current medical status; continuation of medications most appropriate. Compliance with medications and/or management recommendations encouraged. Monitor Hormone replacement therapy Overview Prescribed estradiol 0.5 mg daily by [facility]/Dr Mcgrath Other Visit Diagnoses Encounter for preventative [...] Annual Physical. 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 SHE REPORTS MAYBE ONCE A WEEK WITH A FLARE OF SYMPTOMS. PATIENT CAN USE PEPCID OTC OR TUMS. [employer] Other 03-09-2023 NoteCONSULTATION CONSULTATION DATE: 05/30/2022 HISTORY [...] for re-evaluation. Patient agrees with this plan.[facility] [id number] NotePROCEDURE: XR HIP LT 2 3V WO [...] authenticated by: GENESIS BELLO Date: 2022-05-02 14:36[facility] [id number] NoteCONSULTATION CONSULTATION DATE: 05/02/2022 HISTORY OF PRESENT [...] completed 10 treatments of physical therapy in [place]. The patient does state, at the end [...] followed up in the office post procedure.[facility] [id number] NoteCONSULTATION CONSULTATION DATE: 02/07/2022 HISTORY OF PRESENT [...] review her thoracic x-ray at that time.[facility] [id number] NoteCONSULTATION CONSULTATION DATE: 11/15/2021 This is a [...] indicated. The patient does agree to this.[facility] [id number] Evaluation note* Encounter Date Diagnosis Assessment Notes Treatment Notes Treatment Clinical Notes Sep, Irritable bowel syndrome with both constipation and diarrhea (ICD-10 - K58.2) Sep, GERD (gastroesophageal reflux disease) (ICD-10 - K21.9) Sep, Bloating (ICD-10 - R14.0) [employer] Other 06-30-2022 NoteCONSULTATION CONSULTATION DATE: 09/20/2021 This [...] She has been missing days at the physician gynecologist recently due to her pain. She describes [...] be followed up it the clinic post-procedure. [facility] Signed and Approved by: JONI MAHMOOD . 09/27/2021 16:26:00[facility]12-06-2021 Evaluation note* Encounter Date Diagnosis Assessment Notes Treatment Notes Treatment Clinical Notes Feb, GERD (gastroesophageal reflux disease) (ICD-10 - K21.9) [employer] Other 09-29-2021 Evaluation note* Encounter Date Diagnosis Assessment Notes Treatment Notes Treatment Clinical Notes Nov, GERD (gastroesophage al reflux disease) (ICD-10 - K21.9) GERD home care material was printed EGD START CARAFATE 1 GRAM TID Nov, Irritable bowel synd john with both constipation and diarrhea (ICD-10 - K58.2) Nov, Pharyngoesophageal dysphagia (ICD-10 - R13.14) [employer] Other Evaluation noteNo InformationNort mWater Other Evaluation noteNo assessment information available [facility] Work Phone: Evaluation note* Diagnosis Encounter for preventative adult health care examination- Primary Arthritis, lumbar spine Depression, major, in remission (HCC) ([facility]) Gastroesophageal reflux disease without esophagitis Esophageal reflux Postmenopausal Asymptomatic postmenopausal status (age-related) (natural) Hormone replacement therapy Class 1 obesity BMI 29.0-29.9,adult [facility] Diagnosis Body mass index (BMI) 28.0-28.9, adult Abnormal weight gain Yeast infection BMI 29.0-29.9,adult documented in [facility]* Diagnosis Onset Date Resolution Status GERD (gastroesophageal reflux disease) acute [facility] Work Phone: History general Narrative - Reported* Type Description Date Medical History Gastroesophageal Reflux Disease Medical History Anxiety/Depression Medical History seasonal asthma Surgical History Caesarean Section X 3 Surgical History Tonsillectomy/Adenoidectomy Surgical History Laparoscopy Surgical History Hysteroscopy/Endometrial Ablati on Surgical History Laparoscopy Cholecystectomy Surgical History [facility] tenton interposition Arthro plasty 2019 Hospitalization History See Above [employer] Other Hisrzhp general Narrative - ReportedNort mWater Other Hisqaat general Narrative - Reported* Type Description Date [...] History ablasion-LUMBAR NERVE Hospitalization History See Above [employer] Other Hospital Discharge instructions Additional Instructions Follow up with your primary care doctor Return to the ED If you develop worsening [facility] Work Phone: Chief Complaint and [...] Team Status: Inactive Member Role Status Dates Aliecra LunaJavier , DO Primary Care Provider Active Alix Perez NP Attending Provider Active Team Status: Inactive Member Role Status Dates Alicera FloresNabil , DO Primary Care Provider Active Edison Monroe MD Attending Provider Active 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 dical Specialist DATE CREATED AUTHOR AUTHOR'S ORGANIZ ATION 05/25/2022 [facility] DATE CREATED AUTHOR AUTHOR'S ORGANIZ ATION 06/05/2022 [facility] DATE CREATED AUTHOR AUTHOR'S ORGANIZ ATION 10/05/2022 [facility] DATE CREATED AUTHOR AUTHOR'S ORGANIZ ATION 07/17/2023 [facility] dical Specialists [facility] FOR RECORDS PERTAINING TO PATIENTS WHO ARE [...] BE BASED ON THE PRIMARY CLINICAL RECORDS. [facility] [employer] provides no warranty or guarantee of the accuracy or completeness of information in this document.
== END 2023-08-06 11:41 | disposition home or self-care (01) ==
LOC: RAD 11:41
PROVIDERS: PCP Internal Medicine; Visit Provider Nurse Practitioner
DX: M54.2 Cervicalgia (principal); M54.50 Low back pain, unspecified
CPT/HCPCS: 72050; 72114

== ENCOUNTER 2023-09-05 12:32 | Outpatient (OUT) | payer OTHER, SELFPAY ==
--- NOTE | 2023-09-05 12:35 | MR_ITS ---
The [address] Patient Name: ALEXANDRU RAZO MRN: [id number] date: 1960 Sex: F Assigned Patient Location: MRI Current Patient Location: Accession/Order Number: [id number] Exam Date: 09/05/2023 12:50 Report Date: 09/08/2023 11:58 At the request of: CYNTHIA LANDRUM Procedure: MR lumbar spine wo con EXAMINATION: MR lumbar spine wo con HISTORY: Low Back Pain ; chronic lumbar pain radiating into legs COMPARISON: No relevant comparison available. TECHNIQUE: A variety of imaging planes and parameters were utilized for visualization of suspected pathology. FINDINGS: For the purposes of numbering, sagittal T2 image # 8 extends from the T10 vertebral body superiorly to the S4 level inferiorly. PARASPINAL AREA: Normal with no visible mass. BONES: No fracture, pars defect, or osseous lesion. CORD/CAUDA EQUINA: Normal caliber, contour, and signal intensity. DISC LEVELS: 12-L1: No significant disc/facet abnormality, spinal stenosis, or foraminal stenosis. L1-L2: No significant disc/facet abnormality, spinal stenosis, or foraminal stenosis. L2-L3: No significant disc/facet abnormality, spinal stenosis, or foraminal stenosis. L3-L4: Mild diffuse disc bulging without significant central canal or foraminal narrowing. L4-L5: Mild central canal and moderate bilateral foramen narrowing. Mild diffuse disc bulging without disc at reduction. Moderate degenerative facet arthropathy and ligamentum flavum thickening bilaterally. L5-S1: Mild central canal and moderate-marked bilateral foramen narrowing. Mild diffuse disc bulging without disc at reduction. Moderate degenerative facet arthropathy bilaterally. MR/MR lumbar spine wo con IMPRESSION: 1. Foraminal narrowing at the lower 2 lumbar levels, greater at L5-S1, which may contribute to patient's symptoms. Electronically authenticated by: GENESIS BELLO Date: 09/08/2023 11:58
--- OUTSIDE RECORDS SUMMARY | 2023-09-05 12:46 | XMS_ITS | CCD ---
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 Alice Polo Primary Care [facility] Dr. Alice Polo Primary Care U [facility] Primary Care Unavailable COREA ., DR ARNAV Martínez Attending Unavailable COREA ., DR ARNAV Martínez Admitting Unavailable COREA ., DR ARNAV Martínez Consulting Unavailable [facility] Primary Care Unavailable MAHMOOD ., JONI Consulting Unavailable COREA ., DR ARNAV Martínez Attending Unavailable COREA ., DR ARNAV Martínez Admitting Unavailable [facility] Primary Care Unavailable MAHMOOD ., JONI Consulting Unavailable COREA ., DR ARNAV Martínez Attending Unavailable COREA ., DR ARNAV Martínez Admitting Unavailable [facility] Primary Care Unavailable LAKSHMIPATHY ., NARENDRANATH Admitting [place] v[place] LAKSHMIPATH[place] ., NARENDANUMATH Attending [place] vailable [facility] Primary Care Unavailable COREA ., DR ARNAV Martínez Consulting Unavailable COREA ., DR ARNAV Martínez Attending Unavailable COREA ., DR ARNAV Martínez Admitting Unavailable COREA ., DR ARNAV Martínez Attending Unavailable COREA ., DR ARNAV Martínez Admitting Unavailable MISC, DR SCHMIDT Consulting Unavailable [facility] Primary Care Unavailable MAHMOOD ., JONI Consulting Unavailable MAHMOOD ., JONI Consulting Unavailable COREA ., DR ARNAV Martínez Attending Unavailable COREA ., DR ARNAV Martínez Admitting Unavailable [facility] Primary Care Unavailable COREA ., DR ARNAV Martínez Consulting Unavailable COREA ., DR ARNAV Martínez Attending Unavailable COREA ., DR ARNAV Martínez Admitting Unavailable [facility] [place] Primary Care Unavailable CRISOSTOMOROLAN REED Consulting Unavailable [facility], [facility] Primary Care Unavailable MAHMOOD ., JONI Attending Unavailable MAHMOOD ., JONI Admitting Unavailable ZIEBER, DR GENESIS Mo Consulting Unavailable MAHMOOD ., JONI Consulting Unavailable [facility] Primary Care Unavailable MAHMOOD ., JONI Attending Unavailable MAHMOOD ., JONI Admitting Unavailable ZIEBER, DR GENESIS Mo Consulting Unavailable MAHMOOD ., JONI Consulting Unavailable MAHMOOD ., JONI Consulting Unavailable COREA ., DR ARNAV Martínez Attending Unavailable COREA ., DR ARNAV Martínez Admitting Unavailable [facility] Primary Care Unavailable DO Alice Polo Primary Care Provider DO Oswaldo Deleon Emergency Provider [phone] DO Alice Polo Attending Provider [phone] DO Alice Polo Referring Provider MD Ken Mendez Attending Provider [phone] Edison Monroe Unavailable DO Alice Polo Primary Care Provider [phone] MD Edison Monroe Attending Provider CRISTEL Perez Attending Provider Gabe Gonzalez Unavailable Alice Polo DO Primary Care Provider PAUL MCGRATH Attending Unavailable PAUL MCGRATH Attending Unavailable ALICE POLO Attending Unavailab PAUL Cortes Attending Unavailable PAUL MCGRATH Attending Unavailable ALICE POLO Referring Unavailab RAQUEL Farrell Attending Unavailable RAQUEL ALFONSO Referring Unavailable PAUL MCGRATH Attending Unavailable PAUL MCGRATH Attending Unavailable DO Alice Polo Primary Care Provider MD Ken Mendez Attending Provider [phone] Ken Mendez Admitting Unavailable Ken Mendez Attending Unavailable Alice Polo Primary [facility] Unavailable Alix Perez Admitting Unavailable Alix Perez Attending Unavailable LunaAlice Herrera Primary Care Unavailable Allergies Allergy Classification Reported Allergen(s) Allergy Type Date of Onset Reaction(s) Facility (1 source) Sulfonamides (Antibiotic) Drug allergy (disorder) [facility] (2 sources) Sulfonamides (Antibiotic); Translations: [Sulfa (Sulfonamide Antibiotics)] Allergy to substance 3 Hives [facility] (3 sources) Sulfonamides (Antibiotic) Drug Allergy 3 Hives, Rash [facility] Medications Current Medications Medication Drug Class(es) Dates Sig (Normalized) Sig (Original) baclofen 10 mg oral tablet (17 sources) gamma-Aminobutyric Acid-ergic Agonist Start: 11-25-2020 Baclofen Active 10 MG PO As Directed November 25, 2020 12:00am baclofen (Liores al) 5 MG tablet Take 5 mg by mouth as needed at bedtime 0 Active Baclofen Active celecoxib 200 mg oral capsule (7 sources) Nonsteroidal Anti-inflammatory Drug Start: 07-11-2023 take 1 capsule by mouth once daily Celecoxib (Celebrex) 200 mg capsule Active 200 MG PO Daily July 11, 2023 12:00am take 1 capsule by [facility] every twenty-four hours as needed CeleBREX 200 MG capsule Take 200 mg by mouth Daily as needed. 0 Active citalopram 20 mg oral tablet (20 sources) Serotonin Reuptake Inhibitor Start: 09-03-2022 End: [...] 0 Active estradiol 0.5 mg oral tablet (17 sources) Estrogen Start: 12-11-2022 End: 12-11-2023 take [...] needed. 2 tablet 0 05/08/2023 Active fluticasone (6 sources) Corticosteroid Start: 07-11-2023 fluticasone pr opionate (Flonase) Active INTRANASAL July 11, 2023 12:00am Start: 02-01-2023 take 1 spray(s) nasa l route in the morning fluticasone (Flonase) 50 MCG/ACT nasal spray Administer 1 spray into each nostril in the morning. 0 02/01/2023 Active phentermine hydrochloride 37.5 mg oral capsule (12 sources) Sympathomimetic Amine Anorectic Start: 07-11-2023 take [...] 05/08/2023 06/07/2023 Active take 1 capsule by [facility] every twenty-four hours Adipex-P 37.5 [...] / HYDROcodone bitartrate 5 mg oral tablet (16 sources) Opioid Agonist Start: 12-10-2018 End: 12-10-2018 take 1 tablet by mouth every four to six hours Hydrocodone-Acetami nophen (Elton) 5-325 mg tablet Discontinued 1 - 2 TAB PO EVERY 4-6 HOURS 50 7 December 10, 2018 December 10, 2018 10:44am Start: 12-10-2018 End: 12-10-2018 take 1 tablet by mouth every four to six hours Hydrocodone-Acetaminophen (Elton) 5-325 mg tablet Discontinued 1 - 2 TAB PO EVERY 4-6 HOURS 50 7 December 10, 2018 December 10, 2018 10:44am Start: 12-10-2018 End: 12-10-2018 take 1 tablet by mouth every four to six hours Hydrocodone-Acetaminophen (Elton) 5-325 mg tablet Discontinued 1 - 2 TAB PO EVERY 4-6 HOURS 50 7 December 10, 2018 December 10, 2018 10:44am Start: 12-10-2018 End: 12-10-2018 take 1 tablet by mouth every four to six hours Hydrocodone-Acetaminophen (Elton) 5-325 mg tablet Discontinued 1 - 2 TAB PO EVERY 4-6 HOURS 50 7 December 10, 2018 December 10, 2018 10:44am Start: 12-10-2018 End: 12-10-2018 take 1 tablet by mouth every four to six hours Hydrocodone-Acetaminophen (Elton) 5-325 mg tablet Discontinued 1 - 2 TAB PO EVERY 4-6 HOURS 50 7 December 10, 2018 December 10, 2018 10:44am Start: 12-10-2018 End: 12-10-2018 take 1 tablet by mouth every four to six hours Hydrocodone-Acetaminophen (Elton) 5-325 mg tablet Discontinued 1 - 2 TAB PO EVERY 4-6 HOURS 50 7 December 10, 2018 December 10, 2018 9:44am Start: 12-10-2018 End: 12-10-2018 take 1 tablet by mouth every four to six hours Hydrocodone-Acetaminophen (Elton) 5-325 mg tablet Discontinued 1 - 2 TAB PO EVERY 4-6 HOURS 50 7 December 10, 2018 December 10, 2018 9:44am Start: 12-10-2018 End: 12-10-2018 take 1 tablet by mouth every four to six hours Hydrocodone-Acetaminophen (Elton) 5-325 mg tablet Discontinued 1 - 2 TAB PO EVERY 4-6 HOURS 50 7 December 10, 2018 December 10, 2018 10:44am Start: 04-27-2018 End: 12-10-2018 take 1 tablet by mouth every four to six hours Hydrocodone-Acetaminophen (Elton) 5-325 mg tablet Discontinued 1 - 2 TAB PO EVERY 4-6 HOURS 50 April 27, 2018 December 10, 2018 10:43am acetaminophen 325 mg / oxyCODONE hydrochloride 5 mg oral tablet (8 sources) Opioid Agonist Start: 11-09-2021 End: 05-02-2022 take 1 tablet by mouth every six hours Oxycodone-Acetaminophen (Percocet) 5-325 mg tablet Discontinued 1 TAB PO Q6H 10 3 November 09, 2021 May 02, 2022 8:17pm albuterol 0.83 mg/ml inhalation solution (4 sources) beta2-Adrenergic Agonist Albuterol Sulfate (2 .5 MG/3ML) 0.083% 3 ml Inhalation Four times a day Not-Taking amoxicillin 500 mg oral capsule (8 sources) Penicillin-class Antibacterial Start: 11-09-2021 End: 05-02-2022 take 500 mg by mouth three times daily Amoxicillin Discontinued 500 MG PO Three times daily November 09, 2021 12:00am May 02, 2022 8:16pm Budesonide-Formot jailyn (12 sources) Corticosteroid, beta2-Adrenergic Agonist Start: 12-10-2018 End: [...] e dicyclomine hydrochloride 20 mg oral tablet (8 sources) Anticholinergic Start: 11-25-2020 End: 11-09-2021 take 20 mg by mouth three times daily Dicyclomine Discontinued 20 MG PO Three times daily November 25, 2020 12:00am November 09, 2021 1:23pm doxycycline hyclate 100 mg oral tablet (20 sources) Tetracycline-class Drug Start: 05-26-2018 take 1 capsule by mouth every twelve hours Doxycycline Hyclate 100 MG 1 capsule Orally every 12 hrs for 7 days May, Not-Taking Start: 04-27-2018 End: 12-10-2018 take 100 mg by mouth twice daily Doxycycline Hyclate Discontinued 100 MG PO Twice daily 10 December 10, 2018 12:00am December 10, 2018 10:44am gabapentin 300 mg oral capsule (12 sources) Anti-epileptic Agent Start: 04-20-2018 End: 12-10-2018 take 300 mg by mouth once daily Gabapentin Discontinued 300 MG PO Daily April 20, 2018 1:00am December 10, 2018 10:43am omeprazole 40 mg delayed release oral capsule (12 sources) Proton Pump Inhibitor Start: 04-20-2018 End: [...] 1:20pm promethazine hydrochloride 25 mg oral tablet (8 sources) Phenothiazine Start: 11-24-2019 End: 11-25-2020 take 25 mg by mouth every six hours Promethazine Discontinued 25 MG PO Q6H November 24, 2019 12:00am November 25, 2020 1:53pm sucralfate 1000 mg oral tablet (20 sources) Aluminum Complex Start: 12-29-2020 End: 11-09-2021 [...] Problem Date Documented Date Episodic/Chronic Abdominal pain (16 sources) Nonspecific abdominal pain; Translations: [Unspecified abdominal pain] 11-25-2020 Episodic Anxiety disorders (2 sources) Generalized anxiety disorder; Translations: [Generalized anxiety disorder] Chronic Asthma (3 sources) Exercise-induced asthma; Translations: [Exercise induced bronchospasm] Onset: 4 04-27-2023 Chronic Cardiac dysrhythmias (7 sources) Palpitations; Translations: [Palpitations] 05-02-2022 Episodic Disorders of teeth and jaw (8 sources) Dental abscess; Translations: [Periapical abscess without sinus] 11-09-2021 Episodic Esophageal disorders (20 sources) Gastroesophageal reflux disease; Translations: [Gastro-esophageal reflux disease without esophagitis] Onset: 1 Resolved: 2 Chronic Headache; including migraine (8 sources) Headache; Translations: [Headache] 11-24-2019 Episodic Menopausal [...] HIP] Onset: 2 Episodic Other gastrointestinal disorders (14 sources) Irritable bowel syndrome; Translations: [Mixed irritable bowel syndrome] 12-29-2020 Chronic Other gastrointestinal disorders (2 sources) Mixed irritable bowel syndrome; Translations: [Irritable bowel syndrome with both constipation and diarrhea K58.2] Onset: 1 Resolved: 2 Chronic Other gastrointestinal disorders (20 sources) Dysphagia; Translations: [Dysphagia, pharyngoesophageal phase] 12-29-2020 Episodic Other gastrointestinal disorders (6 sources) Constipation alternates with diarrhea; Translations: [Other specified symptoms and signs involving the digestive system and abdomen] Episodic Other lower respiratory disease (6 sources) [...] Chronic Other nutritional; endocrine; and metabolic disorders (5 sources) Overweight in adulthood with body mass index of 25 or more but less than 30; Translations: [Body mass index (BMI) 28.0-28.9, adult] 05-08-2023 Episodic Other nutritional; endocrine; and metabolic disorders (2 sources) Abnormal weight gain; Translations: [Abnormal weight gain] 05-08-2023 Episodic Other nutritional; endocrine; and metabolic disorders (1 source) Body mass index (BMI) 27.0-27.9, adult; Translations: [Body Mass Index 27.0-27.9, adult] 07-31-2023 Episodic Other upper respiratory disease (6 sources) Hoarse; Translations: [Dysphonia] Episodic Residual codes; unclassified (2 sources) Sleep apnea; Translations: [Sleep apnea, unspecified] Chronic Residual codes; unclassified (3 sources) Obstructive sleep apnea syndrome; Translations: [Obstructive sleep apnea (adult) (pediatric)] 07-31-2023 Chronic Residual codes; unclassified (1 source) Idiopathic sleep related nonobstructive alveolar hypoventilation; Translations: [Idiopathic sleep related non-obstructive alveolar hypoventilation] 07-31-2023 Chronic Residual codes; unclassified (1 source) Obstructive sleep apnea (adult) (pediatric); Translations: [Obstructive sleep apnea (adult)(pediatric)] 07-31-2023 Chronic Residual codes; unclassified (1 source) Obstructive sleep apnea (adult)(pediatric); Translations: [Obstructive sleep apnea (adult) (pediatric)] Onset: Chronic Residual codes; unclassified (4 sources) Postmenopausal [...] [LOW BACK PAIN, UNSPECIFIED] Onset: 3 Unclassified (2 sources) Complication of ventilation therapy; Translations: [Intolerance of noninvasive positive pressure therapy] 07-31-2023 Past or Other Problems Problem Classification Problem [...] BY: Paulino Will MD Normal Not Available Activated partial thrombopla stin time (aPTT) in platelet poor plasma by coagulation aOrdered By: Oswaldo Deleon on 05-02-2022 aPTT Coag (PPP) [Time] 30.0 s 25.1-36.5 [facility] Basophils Auto (Bld) [#/Vol] Ordered By: Oswaldo Deleon on 05-02-2022 Basophils (Bld) [#/Vol] 0.0 10*3/uL 0.0-0.2 [facility] Basophils/100 WBC Auto (Bld) Ordered By: Oswaldo Deleon on 05-02-2022 Basophils/100 WBC (Bld) 0.7 % . [facility] Body fluid albumin measureme nt (mass/volume)Ordered By: Oswaldo Deleon on 05-02-2022 Albumin (Body fld) [Mass/Vol] 4.0 g/dL 3.2-5.5 [facility] Creatine kinase [Enzymatic a ctivity/volume] in Serum or PlasmaOrdered By: Oswaldo Deleon on 05-02-2022 CK [Catalytic activity/Vol] 50 U/L 22-269 [facility] Creatinine and Glomerular fi ltration rate.predicted panel (S/P/Bld)Ordered By: Oswaldo Deleon on 05-02-2022 Creatinine [Mass/Vol] 0.79 mg/dL 0.44-1.03 [facility] Eosinophils Auto (Bld) [#/Vo l]Ordered By: Oswaldo Deleon on 05-02-2022 Eosinophils (Bld) [#/Vol] 0.4 10*3/uL 0.0-0.45 [facility] Eosinophils/100 WBC Auto (Bl d)Ordered By: Oswaldo Deleon on 05-02-2022 Eosinophils/100 WBC (Bld) 4.9 % . [facility] Erythrocyte distribution wid th Auto (RBC) [Ratio]Ordered By: Oswaldo Deleon on 05-02-2022 Erythrocyte distribution width (RBC) [Ratio] 13.0 % 11.9-15.3 [facility] Estimated glomerular filtrat ion rate (GFR) non- AmericanOrdered By: Oswaldo Deleon on 05-02-2022 GFR/1.73 sq M.predicted among non-blacks MDRD (S/P/Bld) [Vol rate/Area] > 60 mL/Min [facility] Globulin Calc (S) [Mass/Vol] Ordered By: Oswaldo Deleon on 05-02-2022 Globulin (S) [Mass/Vol] 2.9 g/dL [facility] Hematocrit Auto (Bld) [Volum e fraction]Ordered By: Oswaldo Deleon on 05-02-2022 Hematocrit (Bld) [Volume fraction] 43.7 % 34.0-46.4 [facility] Hemoglobin [Mass/volume] in BloodOrdered By: Oswaldo Deleon on 05-02-2022 Hemoglobin (Bld) [Mass/Vol] 14.7 g/dL 11.8-15.4 [facility] Laboratory - Chemistry and C hemistry - challengeOrdered By: Oswaldo Deleon on 05-02-2022 Magnesium [Mass/Vol] 2.0 mg/dL 1.6-2.6 [facility] Laboratory - CoagulationOrde red By: Oswaldo Deleon on 05-02-2022 PT Coag (PPP) [Time] 11.6 s 9.0-12.9 [facility] Leukocytes [#/volume] correc nikhil for nucleated erythrocytes in Blood by Automated counOrdered By: Oswaldo Deleon on 05-02-2022 WBC corrected for nucl RBC Auto (Bld) [#/Vol] 7.4 10*3/uL 3.8-11.6 [facility] Lymphocytes Auto (Bld) [#/Vo l]Ordered By: Oswaldo Deleon on 05-02-2022 Lymphocytes (Bld) [#/Vol] 1.6 10*3/uL 1.00-4.8 [facility] Lymphocytes/100 WBC Auto (Bl d)Ordered By: Oswaldo Deleon on 05-02-2022 Lymphocytes/100 WBC (Bld) 22.0 % . [facility] MCH Auto (RBC) [Entitic mass ]Ordered By: Oswaldo Deleon on 05-02-2022 MCH (RBC) [Entitic mass] 30.0 pg 24.7-34.3 [facility] MCHC Auto (RBC) [Mass/Vol]Or dered By: Oswaldo Deleon on 05-02-2022 MCHC (RBC) [Mass/Vol] 33.7 g/dL 32.0-35.0 [facility] MCV Auto (RBC) [Entitic vol] Ordered By: Oswaldo Deleon on 05-02-2022 MCV (RBC) [Entitic vol] 88.9 fL 80-100 [facility] Monocyte distribution width [Entitic volume] in Blood by AutomatedOrdered By: Oswaldo Deleon on 05-02-2022 Monocyte distribution width Auto (Bld) [Entitic vol] 18.10 % 0.00-20.00 [facility] Monocytes Auto (Bld) [#/Vol] Ordered By: Oswaldo Deleon on 05-02-2022 Monocytes (Bld) [#/Vol] 0.8 10*3/uL 0.0-0.8 [facility] Monocytes/100 WBC Auto (Bld) Ordered By: Oswaldo Deleon on 05-02-2022 Monocytes/100 WBC (Bld) 10.2 % . [facility] Neutrophils Auto (Bld) [#/Vo l]Ordered By: Oswaldo Deleon on 05-02-2022 Neutrophils (Bld) [#/Vol] 4.6 10*3/uL 1.8-7.7 [facility] Neutrophils/100 WBC Auto (Bl d)Ordered By: Osawldo Deleon on 05-02-2022 Neutrophils/100 WBC (Bld) 62.2 % . [facility] No Panel InformationOrdered By: Oswaldo Deleon on 05-02-2022 D-Dimer Quantitative (PE/DVT) < 200 ng/mL 0-243 [facility] Comment on above: The reference range [...] conditions. Estimated GFR () > 60 mL/Min [facility] Comment on above: GFR estimated refere nce range: According to KDOQI guidelines, <60 ml/min/1.73m2 is sufficient to diagnose a patient with chronic kidney disease. Pharmacy Creatinine Clearance (Chem 67.96 [facility] Nucleated erythrocytes [Pres ence] in Blood by Automated countOrdered By: Oswaldo Deleon on 05-02-2022 Nucleated RBC Auto Ql (Bld) 0.1 /100{WBC} 0-0.5 [facility] Platelet mean volume Auto (B ld) [Entitic vol]Ordered By: Oswaldo Deleon on 05-02-2022 Platelet mean volume (Bld) [Entitic vol] 8.7 fL 6.3-10.7 [facility] Platelet poor plasma interna tional normalized ratio (INR) by coagulation assay (relatOrdered By: Oswaldo Deleon on 05-02-2022 INR Coag (PPP) [Relative time] 1.0 {INR} [facility] Comment on above: INR Therapeutic Rang [...] 05-02-2022 Platelets (Bld) [#/Vol] 271 10*3/uL 150-450 [facility] Protein [Mass/volume] in Ser um or PlasmaOrdered By: Oswaldo Deleon on 05-02-2022 Protein [Mass/Vol] 6.9 g/dL 6.1-7.9 [facility] RBC Auto (Bld) [#/Vol]Ordere d By: Oswaldo Deleon on 05-02-2022 RBC (Bld) [#/Vol] 4.92 10*6/uL 3.60-5.00 [facility] Serum or plasma alanine reyna otransferase measurement without P-5'-P (enzymatic activiOrdered By: Oswaldo Deleon on 05-02-2022 ALT No additional P-5'-P [Catalytic activity/Vol] 21 U/L 10-60 [facility] Serum or plasma albumin/glob ulin mass ratioOrdered By: Oswaldo Deleon on 05-02-2022 Albumin/Globulin [Mass ratio] 1.4 {ratio} [facility] Serum or plasma alkaline raphael sphatase measurement (enzymatic activity/volume)Ordered By: Oswaldo Deleon on 05-02-2022 ALP [Catalytic activity/Vol] 56 U/L 32-92 [facility] Serum or plasma anion gap de terminationOrdered By: Oswaldo Deleon on 05-02-2022 Anion gap [Moles/Vol] 11.4 mmol/L 6.0-15.0 [facility] Serum or plasma aspartate am inotransferase measurement (enzymatic activity/volume)Ordered By: Oswaldo Deleon on 05-02-2022 AST [Catalytic activity/Vol] 20 U/L 10-42 [facility] Serum or plasma calcium shellie urement (mass/volume)Ordered By: Oswaldo Deleon on 05-02-2022 Calcium [Mass/Vol] 9.4 mg/dL 8.2-10.2 [facility] Serum or plasma chloride isidro surement (moles/volume)Ordered By: Oswaldo Deleon on 05-02-2022 Chloride [Moles/Vol] 100 mmol/L 95-114 [facility] Serum or plasma creatine kin ase MB (CKMB)/total creatine kinase (CK) ratio by calculaOrdered By: Oswaldo Deleon on 05-02-2022 CK.MB Calc [Catalytic fraction] 1.8 % 0.00-2.50 [facility] Serum or plasma creatine kin ase MB measurement (mass/volume)Ordered By: Oswaldo Deleon on 05-02-2022 CK.MB [Mass/Vol] 0.9 ng/mL 0.6-6.3 [facility] Serum or plasma glucose shellie urement (mass/volume)Ordered By: Oswaldo Deleon on 05-02-2022 Glucose [Mass/Vol] 87 mg/dL 70-100 [facility] Comment on above: ADA recommended refe rence rangeRandom Glucose Reference Range is dependent on time and content of last meal. Glucose of more than 200 mg/dL in a nonstressed, ambulatory subject supports the diagnosis of Diabetes Mellitus. Serum or plasma potassium me asurement (moles/volume)Ordered By: Oswaldo Deleon on 05-02-2022 Potassium [Moles/Vol] 3.9 mmol/L 3.5-5.1 [facility] Serum or plasma sodium measu rement (moles/volume)Ordered By: Oswaldo Deleon on 05-02-2022 Sodium [Moles/Vol] 135 mmol/L 136-146 [facility] Serum or plasma total biliru bin measurement (mass/volume)Ordered By: Oswaldo Deleon on 05-02-2022 Bilirubin [Mass/Vol] 0.5 mg/dL 0.3-1.2 [facility] Serum or plasma total carbon dioxide measurement (moles/volume)Ordered By: Oswaldo Deleon on 05-02-2022 CO2 [Moles/Vol] 27.5 mmol/L 22.0-30.0 [facility] Serum or plasma urea nitroge n measurement (mass/volume)Ordered By: Oswaldo Deleon on 05-02-2022 Urea nitrogen [Mass/Vol] 21 mg/dL 9-23 [facility] Troponin I.cardiac [Mass/vol ume] in Serum or Plasma by High sensitivity methodOrdered By: Oswaldo Deleon on 05-02-2022 Troponin I.cardiac High sensitivity method [Mass/Vol] 3 pg/mL 0-15 [facility] WBC Auto (Bld) [#/Vol]Ordere d By: Oswaldo Deleon on 05-02-2022 WBC (Bld) [#/Vol] 7.4 10*3/uL 3.8-11.6 [facility] XR TSPINE MIN 4 VIEWSon 11 XR TSPINE MIN 4 VIEWS EXAMINATION: XR [...] by: GENESIS BELLO Date: 2022-02-07 15:12 Normal [facility] SCREENING MAMMOGRAM W/NUPUR, BILATERAL*on 12-06-2021 SCREENING MAMMOGRAM [...] VERY IMPORTANT TO YOUR HEALTH. THE CURRENT [employer] [employer] OF [employer] AND [employer] COMPREHENSIVE CANC[employer] NETWORK GUIDELINES RECOMMENDS ANNUAL MAMMOGRAPHY BEGINNING AT AGE 40 THIS FACILITY USES A REMINDER SYSTEM TO ENSURE ALL PATIENTS RECEIVE REMINDER NOTIFICATIONS AT THE APPROPRIATE TIME BASED ON THE RECOMMENDATIONS OF THIS EXAM. 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 Accredited by the ACR and FDA. Report reported and signed by Paulino Will on 12/06/[address] [facility] Specialist Basophils Auto (Bld) [#/Vol] Ordered By: Ken Ortiz on 10-04-2021 Basophils (Bld) [#/Vol] 0.0 10*3/uL 0.0-0.2 [facility] Basophils/100 WBC Auto (Bld) Ordered By: Ken Ortiz on 10-04-2021 Basophils/100 WBC (Bld) 0.7 % . [facility] Blood hemoglobin measurement (mass/volume)Ordered By: Ken Ortiz on 10-04-2021 Hemoglobin (Bld) [Mass/Vol] 14.6 g/dL 11.8-15.4 [facility] Blood leukocytes automated c ount (number/volume)Ordered By: Ken Ortiz on 10-04-2021 WBC (Bld) [#/Vol] 4.4 10*3/uL 4.5-11.0 [facility] Body fluid albumin measureme nt (mass/volume)Ordered By: Ken Ortiz on 10-04-2021 Albumin (Body fld) [Mass/Vol] 3.7 g/dL 3.2-5.5 [facility] C reactive protein [Mass/vol ume] in Serum or PlasmaOrdered By: Ken Ortiz on 10-04-2021 CRP [Mass/Vol] 0.6 mg/dL 0.0-1.0 [facility] Creatinine and Glomerular fi ltration rate.predicted panel (S/P/Bld)Ordered By: Ken Ortiz on 10-04-2021 Creatinine [Mass/Vol] 0.74 mg/dL 0.44-1.03 [facility] Elastase.pancreatic [Mass/ma ss] in StoolOrdered By: Ken Ortiz on 10-04-2021 Elastase.pancreatic (Stl) [Mass/Mass] >500 >200 [facility] Comment on above: Result Units: ug Luz st./g Severe Pancreatic Insufficiency: <100 Moderate Pancreatic Insufficiency: 100 - 200 Normal: >200 Performed at: - [address] [id number] Tourist Adviser: Lamont Young MD, Phone: [phone] Eosinophils Auto (Bld) [#/Vo l]Ordered By: Ken Ortiz on 10-04-2021 Eosinophils (Bld) [#/Vol] 0.2 10*3/uL 0.0-0.45 [facility] Eosinophils/100 WBC Auto (Bl d)Ordered By: Ken Ortiz on 10-04-2021 Eosinophils/100 WBC (Bld) 5.2 % . [facility] Erythrocyte distribution wid th Auto (RBC) [Ratio]Ordered By: Ken Ortiz on 10-04-2021 Erythrocyte distribution width (RBC) [Ratio] 13.1 % 11.9-15.3 [facility] Erythrocyte sedimentation ra te by Photometric methodOrdered By: Ken Ortiz on 10-04-2021 ESR Photometric method (Bld) [Velocity] 5 mm/hr 0-29 [facility] Estimated glomerular filtrat ion rate (GFR) non- AmericanOrdered By: Ken Ortiz on 10-04-2021 GFR/1.73 sq M.predicted among non-blacks MDRD (S/P/Bld) [Vol rate/Area] > 60 mL/Min [facility] Globulin Calc (S) [Mass/Vol] Ordered By: Ken Ortiz on 10-04-2021 Globulin (S) [Mass/Vol] 2.5 g/dL [facility] Hematocrit Auto (Bld) [Volum e fraction]Ordered By: Ken Ortiz on 10-04-2021 Hematocrit (Bld) [Volume fraction] 43.7 % 34.0-46.4 [facility] IgA [Mass/volume] in Serum o r PlasmaOrdered By: Ken Ortiz on 10-04-2021 IgA [Mass/Vol] 168 mg/dL 87-352 [facility] Comment on above: Performed at: [address] [id number] Tourist Adviser: Kevin Sanders PhD, Phone: [phone] Laboratory - Hematology and Cell countsOrdered By: Ken Ortiz on 10-04-2021 Nucleated RBC/100 WBC (Bld) [Ratio] 0.0 % 0-0.5 [facility] Lymphocytes Auto (Bld) [#/Vo l]Ordered By: Ken Ortiz on 10-04-2021 Lymphocytes (Bld) [#/Vol] 1.5 10*3/uL 1.00-4.8 [facility] Lymphocytes/100 WBC Auto (Bl d)Ordered By: Ken Ortiz on 10-04-2021 Lymphocytes/100 WBC (Bld) 34.1 % . [facility] MCH Auto (RBC) [Entitic mass ]Ordered By: Ken Ortiz on 10-04-2021 MCH (RBC) [Entitic mass] 29.8 pg 24.7-34.3 [facility] MCHC Auto (RBC) [Mass/Vol]Or dered By: Ken Ortiz on 10-04-2021 MCHC (RBC) [Mass/Vol] 33.5 g/dL 32.0-35.0 [facility] MCV Auto (RBC) [Entitic vol] Ordered By: Ken Ortiz on 10-04-2021 MCV (RBC) [Entitic vol] 88.9 fL 80-100 [facility] Monocytes Auto (Bld) [#/Vol] Ordered By: Ken Ortiz on 10-04-2021 Monocytes (Bld) [#/Vol] 0.4 10*3/uL 0.0-0.8 [facility] Monocytes/100 WBC Auto (Bld) Ordered By: Ken Ortiz on 10-04-2021 Monocytes/100 WBC (Bld) 8.1 % . [facility] Neutrophils Auto (Bld) [#/Vo l]Ordered By: Ken Ortiz on 10-04-2021 Neutrophils (Bld) [#/Vol] 2.3 10*3/uL 1.8-7.7 [facility] Neutrophils/100 WBC Auto (Bl d)Ordered By: Ken Ortiz on 10-04-2021 Neutrophils/100 WBC (Bld) 51.9 % . [facility] No Panel InformationOrdered By: Ken Ortiz on 10-04-2021 Endomysial IgA Antibody Negative Negative [facility] Estimated GFR () > 60 mL/Min [facility] Comment on above: GFR estimated refere nce range: According to KDOQI guidelines, <60 ml/min/1.73m2 is sufficient to diagnose a patient with chronic kidney disease. Pharmacy Creatinine Clearance (Chem N/A [facility] Platelet mean volume Auto (B ld) [Entitic vol]Ordered By: Ken Ortiz on 10-04-2021 Platelet mean volume (Bld) [Entitic vol] 9.2 fL 6.3-10.7 [facility] Platelets Auto (Bld) [#/Vol] Ordered By: Ken Ortiz on 10-04-2021 Platelets (Bld) [#/Vol] 286 10*3/uL 150-450 [facility] Protein [Mass/volume] in Ser um or PlasmaOrdered By: Ken Ortiz on 10-04-2021 Protein [Mass/Vol] 6.2 g/dL 6.1-7.9 [facility] RBC Auto (Bld) [#/Vol]Ordere d By: Ken Ortiz on 10-04-2021 RBC (Bld) [#/Vol] 4.92 10*6/uL 3.60-5.00 [facility] Serum gliadin peptide IgA an tibody assay (units/volume)Ordered By: Ken Ortiz on 10-04-2021 Gliadin peptide IgA Qn (S) 4 units 0-19 [facility] Comment on above: Negative 0 - 19 Weak Positive 20 - 30 Moderate to Strong Positive >30 Serum gliadin peptide IgG an tibody assay (units/volume)Ordered By: Ken Ortiz on 10-04-2021 Gliadin peptide IgG Qn (S) 2 units 0-19 [facility] Comment on above: Negative 0 - 19 Weak Positive 20 - 30 Moderate to Strong Positive >30 Serum or plasma alanine reyna otransferase measurement without P-5'-P (enzymatic activiOrdered By: Ken Ortiz on 10-04-2021 ALT No additional P-5'-P [Catalytic activity/Vol] 16 U/L 10-60 [facility] Serum or plasma albumin/glob ulin mass ratioOrdered By: Ken Ortiz on 10-04-2021 Albumin/Globulin [Mass ratio] 1.5 {ratio} [facility] Serum or plasma alkaline raphael sphatase measurement (enzymatic activity/volume)Ordered By: Ken Ortiz on 10-04-2021 ALP [Catalytic activity/Vol] 55 U/L 32-92 [facility] Serum or plasma aspartate am inotransferase measurement (enzymatic activity/volume)Ordered By: Ken Ortiz on 10-04-2021 AST [Catalytic activity/Vol] 18 U/L 10-42 [facility] Serum or plasma calcium shellie urement (mass/volume)Ordered By: Ken Ortiz on 10-04-2021 Calcium [Mass/Vol] 9.7 mg/dL 8.2-10.2 [facility] Serum or plasma chloride isidro surement (moles/volume)Ordered By: Ken Ortiz on 10-04-2021 Chloride [Moles/Vol] 101 mmol/L 95-114 [facility] Serum or plasma glucose shellie urement (mass/volume)Ordered By: Ken Ortiz on 10-04-2021 Glucose [Mass/Vol] 85 mg/dL 70-100 [facility] Comment on above: ADA recommended refe rence range Random Glucose Reference Range is dependent on time and content of last meal. Glucose of more than 200 mg/dL in a nonstressed, ambulatory subject supports the diagnosis of Diabetes Mellitus. Serum or plasma potassium me asurement (moles/volume)Ordered By: Ken Ortiz on 10-04-2021 Potassium [Moles/Vol] 4.4 mmol/L 3.5-5.1 [facility] Serum or plasma sodium measu rement (moles/volume)Ordered By: Ken Ortiz on 10-04-2021 Sodium [Moles/Vol] 138 mmol/L 136-146 [facility] Serum or plasma total biliru bin measurement (mass/volume)Ordered By: Ken Ortiz on 10-04-2021 Bilirubin [Mass/Vol] 0.5 mg/dL 0.3-1.2 [facility] Serum or plasma total carbon dioxide measurement (moles/volume)Ordered By: Ken Ortiz on 10-04-2021 CO2 [Moles/Vol] 30.4 mmol/L 22.0-30.0 [facility] Serum or plasma urea nitroge n measurement (mass/volume)Ordered By: Ken Ortiz on 10-04-2021 Urea nitrogen [Mass/Vol] 13 mg/dL 12-14 [facility] Serum tissue transglutaminas e (tTG) IgA antibody assay (units/volume)Ordered By: Ken Ortiz on 10-04-2021 tTG IgA Qn (S) <2 U/mL 0-3 [facility] Comment on above: Negative 0 - 3 Weak Positive 4 - 10 Positive >10 Tissue Transglutaminase (tTG) has been identified as the endomysial antigen. Studies have demonstr- ated that endomysial IgA antibodies have over 99% specificity for gluten sensitive enteropathy. Serum tissue transglutaminas e (tTG) IgG antibody assay (units/volume)Ordered By: Ken Ortiz on 10-04-2021 tTG IgG Qn (S) <2 U/mL 0-5 [facility] Comment on above: Negative 0 - 5 Weak Positive 6 - 9 Positive >9 Vital Signs Date Time Vital Sign Value Performing Clinician Facility 07-31-2023 08:37-0400 Body height 152.4 cm [facility] 07-31-2023 08:37-0400 Body mass index (BMI) [Ratio] 27.3 kg/m2 [facility] 07-31-2023 08:37-0400 Body weight 63.5 kg [facility] 07-31-2023 08:37-0400 Diastolic blood pressure 77 mm[Hg] [facility] 07-31-2023 08:37-0400 Heart rate 71 /min [facility] 07-31-2023 08:37-0400 SaO2% (BldA) [Mass fraction] 99 % [facility] 07-31-2023 08:37-0400 Systolic blood pressure 136 mm[Hg] [facility] 07-11-2023 10:22-0400 Body height 152.4 cm [facility] 07-11-2023 10:22-0400 Body mass index (BMI) [Ratio] 28.2 kg/m2 [facility] 07-11-2023 10:22-0400 Body weight 65.48 kg [facility] 07-11-2023 10:22-0400 Diastolic blood pressure 81 mm[Hg] [facility] 07-11-2023 10:22-0400 Heart rate 67 /min [facility] 07-11-2023 10:22-0400 Systolic blood pressure 146 mm[Hg] [facility] 05-08-2023 14:36-0500 Body height 152.4 cm Paul Visci DO Work Phone: [facility] 05-08-2023 14:36-0500 Body mass index (BMI) [Ratio] 28.32 kg/m2 Paul Visci DO Work Phone: [facility] 05-08-2023 14:36-0500 Body weight 65.77 kg Paul Visci DO Work Phone: [facility] 05-08-2023 14:36-0500 Diastolic blood pressure 84 mm[Hg] Paul Visci DO Work Phone: [facility] 05-08-2023 14:36-0500 Systolic blood pressure 124 mm[Hg] Paul Visci DO Work Phone: [facility] 04-24-2023 10:05-0500 Body mass index (BMI) [Ratio] 28.55 kg/m2 Alice Luna-Longville DO Work Phone: [facility] 04-24-2023 10:05-0500 Body weight 66.32 kg Alice Luna-Longville DO Work Phone: [facility] 04-24-2023 10:05-0500 Diastolic blood pressure 64 mm[Hg] Alice Luna-Longville DO Work Phone: [facility] 04-24-2023 10:05-0500 Heart rate 64 /min Alice Luna-Longville DO Work Phone: [facility] 04-24-2023 10:05-0500 SaO2% (BldA) [Mass fraction] 98 % Alice Luna-Longville DO Work Phone: [facility] 04-24-2023 10:05-0500 Systolic blood pressure 112 mm[Hg] Alice Luna-Longville DO Work Phone: [facility] 12-09-2022 10:00-0400 Body height 152.4 cm Gabe Gonzalez Other [employer] Other 12-09-2022 10:00-0400 Body mass index (BMI) [Ratio] 32.22 kg/m2 Gabe Gonzalez Other [employer] Other 12-09-2022 10:00-0400 Body weight 74.84 kg Gabe Gonzalez Other [employer] Other 12-09-2022 10:00-0400 Diastolic blood pressure 81 mm[Hg] Gabe Gonzalez Other [employer] Other 12-09-2022 10:00-0400 Systolic blood pressure 129 mm[Hg] Gabe Gonzalez Other [employer] Other 09-03-2022 13:50-0400 Diastolic blood pressure 79 mm[Hg] DO Alice Luna-Longville Work Phone: [facility] 09-03-2022 13:50-0400 Heart rate 56 /min DO Alice Luna-Longville Work Phone: [facility] 09-03-2022 13:50-0400 SaO2% (BldA) [Mass fraction] 100 % DO Alice Luna-Longville Work Phone: [facility] 09-03-2022 13:50-0400 Systolic blood pressure 125 mm[Hg] DO Alice Luna-Longville Work Phone: [facility] 09-03-2022 12:25-0400 Body height 152.4 cm DO Alice Luna-Longville Work Phone: [facility] 09-03-2022 12:25-0400 Body temperature 97.9 [degF] DO Alice Luna-Longville Work Phone: [facility] 09-03-2022 12:25-0400 Body weight 72.12 kg DO Alice Luna-Longville Work Phone: [facility] 09-03-2022 12:25-0400 Respiratory rate 16 /min DO Alice Luna-Longville Work Phone: [facility] 05-02-2022 20:00-0500 Diastolic blood pressure 86 mm[Hg] DO Alice Luna-Longville Work Phone: [facility] 05-02-2022 20:00-0500 Heart rate 66 /min DO Alice Luna-Longville Work Phone: [facility] 05-02-2022 20:00-0500 Respiratory rate 20 /min DO Alice Luna-Longville Work Phone: [facility] 05-02-2022 20:00-0500 SaO2% (BldA) [Mass fraction] 99 % DO Alice Luna-Longville Work Phone: [facility] 05-02-2022 20:00-0500 Systolic blood pressure 137 mm[Hg] DO Alice Luna-Longville Work Phone: [facility] 05-02-2022 16:29-0500 Body height 152.4 cm DO Alice Luna-Longville Work Phone: [facility] 05-02-2022 16:29-0500 Body temperature 97.5 [degF] DO Alice Luna-Longville Work Phone: [facility] 05-02-2022 16:29-0500 Body weight 72.12 kg DO Alice Luna-Longville Work Phone: [facility] 11-09-2021 13:34-0400 Body height 152.4 cm DO Alice Luna-Longville Work Phone: [facility] 11-09-2021 13:34-0400 Body temperature 98 [degF] DO Alice Luna-Longville Work Phone: [facility] 11-09-2021 13:34-0400 Body weight 71 kg DO Alice Luna-Longville Work Phone: [facility] 11-09-2021 13:34-0400 Diastolic blood pressure 80 mm[Hg] DO Alice Luna-Longville Work Phone: [facility] 11-09-2021 13:34-0400 Heart rate 78 /min DO Alice Luna-Longville Work Phone: [facility] 11-09-2021 13:34-0400 Respiratory rate 18 /min DO Alice Luna-Longville Work Phone: [facility] 11-09-2021 13:34-0400 SaO2% (BldA) [Mass fraction] 97 % DO Alice Luna-Longville Work Phone: [facility] 11-09-2021 13:34-0400 Systolic blood pressure 187 mm[Hg] DO Alice Luna-Longville Work Phone: [facility] 12-20-2020 14:15-0400 Body height 152.4 cm Ken Ortiz Other [employer] Other 12-20-2020 14:15-0400 Body mass index (BMI) [Ratio] 31.05 kg/m2 Ken Ortiz Other [employer] [facility] [employer] Other 12-20-2020 14:15-0400 Body weight 72.12 kg Ken Ortiz Other [employer] Other Encounters Encounter Date Encounter Type Care Provider Facility Start: 08-27-2023 End: 08-27-2023 Patient encounter procedure DO Alice Polo Work Phone: [facility] Work Phone: Start: 08-27-2023 End: 08-27-2023 ambulatory DO Alice Luna-Eliot Work Phone: [facility] Work Phone: Start: 07-31-2023 End: 07-31-2023 ambulatory [facility] Work Phone: Start: 07-31-2023 End: 07-31-2023 Patient encounter procedure [facility] Physician [facility] Work Phone: Start: 07-16-2023 End: 07-16-2023 ambulatory PAUL A VISCI Not Available Start: 07-11-2023 End: 07-11-2023 ambulatory [facility] Work Phone: Start: 07-11-2023 End: 07-11-2023 Patient encounter procedure [facility] Physician [facility] Gastroenter[facility] Work Phone: Start: 06-09-2023 End: 06-10-2023 [...] encounter status Alice Polo DO Work Phone: [facility] Work Phone: Start: 04-24-2023 End: 04-24-2023 Periodic preventive med est patient 40-64yrs Alice Polo DO Work Phone: [facility] Comment on above: Encounter for preven tative adult health care examination (Primary Dx); Arthritis, lumbar spine; Depression, major, in remission (HCC) (CMS/HCC); Gastroesophageal reflux disease without esophagitis; Postmenopausal; Hormone replacement therapy; Class 1 obesity Start: 03-31-2023 End: 03-31-2023 ambulatory PAUL A VISCI Not Available Start: 03-06-2023 End: 03-06-2023 ambulatory PAUL A VISCI Not Available Start: 02-06-2023 End: 02-06-2023 ambulatory PAUL A VISCI Not Available Start: 12-09-2022 End: 12-09-2022 ambulatory Gabe Gonzalez Other [employer] Other Start: 12-09-2022 Office outpatient visit 15 minutes Gabe Gonzalez [facility] Gastroenterology Start: 09-26-2022 End: 09-26-2022 Patient encounter procedure DO Alice Polo Work Phone: [facility] Work Phone: Start: 09-26-2022 End: 09-26-2022 ambulatory DO Alice Polo Work Phone: [facility] Work Phone: Start: 09-04-2022 End: 09-04-2022 ambulatory Edison Monroe Other [employer] Other Start: 09-04-2022 Telephone encounter Edison HAHN [facility] Start: 09-03-2022 End: 09-03-2022 Admission to same day surgery center DO Alice Luna-Longville Work Phone: [facility] Work Phone: Start: 08-29-2022 ambulatory ALICE LUNAABDI CURTISY Fac ility:[facility]1 Start: 06-12-2022 End: 06-12-2022 ambulatory DO Alice Luna-Longville Work Phone: [facility] Work Phone: Start: 06-12-2022 End: 06-12-2022 Patient encounter procedure DO Alice Luna-Longville Work Phone: [facility] Work Phone: Start: 05-30-2022 End: 05-31-2022 ambulatory ALICE FERRER Facility:[facility] Start: 05-21-[address] Alice Polo Facility:[facility] Start: 05-14-2022 End: 05-14-2022 ambulatory ALICE FERRER Facility: Start: 05-10-[address] Alice Polo Facility:[id number] Start: 05-07-2022 End: 05-07-2022 ambulatory DO Alice Luna-Longville Work Phone: [facility] Work Phone: Start: 05-07-2022 End: 05-07-2022 Patient encounter procedure DO Alice Ulna-Longville Work Phone: [facility]Electrodiagnostics Work Phone: Start: 05-02-2022 End: 05-02-2022 Emergency department patient visit DO Alice Luna-Longville Work Phone: [facility]Emergency Room Work Phone: Start: 05-02-2022 End: 05-03-2022 ambulatory ALICE FERRER Facility:[facility] Start: 04-16-2022 End: 04-16-2022 ambulatory ALICE CURTISY Facility:[facility] Start: 02-07-2022 End: 02-08-2022 ambulatory ALICERA JEREMY CURTISY Facility:[facility] Start: 11-15-2021 End: 11-16-2021 ambulatory JONI TIMOTEO . Facility:[facility] Start: 11-09-2021 End: 11-09-2021 Emergency department patient visit DO Alice Polo Work Phone: [facility]Emer[facility] Start: 10-16-2021 End: 10-16-[address] ARNAV COREA . Facility:[facility] Start: 10-11-2021 End: 10-11-2021 ambulatory Ken Ortzi Other [employer] Other Start: 10-11-2021 Telephone encounter Ken Ortiz [facility] Start: 10-04-2021 End: 10-04-2021 Patient encounter procedure DO Alice Polo Work Phone: [facility] [place] Start: 10-03-2021 End: 10-03-2021 ambulatory Ken Ortiz Other [employer] Other Start: 10-03-2021 Telephone encounter Ken Ortiz [facility] Start: 09-20-2021 End: 09-21-2021 ambulatory JONI MAHMOOD . Facility:[facility] Start: 02-26-2021 End: 02-26-2021 ambulatory Ken Ortiz Other [employer] Other Start: 02-26-2021 Telephone encounter Ken Ortiz [facility] Start: 12-20-2020 Office outpatient visit 25 minutes Ken Ortiz [facility] Procedures Date Procedure Procedure Detail Performing Clinician Start: 12-23-2022 Mammography Alice Luna-Eliot DO Work Phone: Start: 09-03-2022 Esophagogastroduodenoscopy DO Alice Polo Work Phone: Start: 05-02-2022 Plain chest X-ray DO Alice Polo Work Phone: Start: 11-09-2021 CT of facial bones without contrast DO S love Polo Work Phone: Start: 12-29-2020 Colonoscopy Alice Polo DO Work Phone: Plan of Treatment Date Care Activity Detail Author Start: 12-29-2030 Screening for malignant neoplasm of colon [facility] Start: 04-27-2024 End: 04-27-2024 Patient encounter procedure 04/27/2024 10:00 AM EST Office Visit [facility] [address] [place] [id number] LunaEmily Alice D, DO [address] [place] [address] [facility] Start: 12-24-2023 Screening for malignant neoplasm of breast Mammogram [facility] Start: 04-28-2023 End: 04-28-2023 Patient encounter procedure 04/28/2023 9:30 AM EST Office Visit [facility] [address] [place] [id number] Paul Mcgrath, DO [address] [place] [address] BMI 29.0-29.9,adult [facility] Comment on above: BMI 29.0-29.9,adult Start: 09-03-2022 [facility] Start: 1960 Screening for malignant neoplasm of colon [facility] Patient Education [facility] Work Phone: Patient referral [facility] Work Phone: Immunizations Immunization Date Immunization Notes Care Provider Fa cility 12-25-2022 RSV, recombinant, protein subunit RSVpreF, adjuvant reconstitu, 120mcg/0.5mL, PF (Arexvy) Alice Luna-Longville DO Work Phone: [facility] 05-28-2021 zoster vaccine recombinant Alice Jeremy-Longville DO Work Phone: [facility] 02-07-2021 zoster vaccine recombinant Alice Jeremy-Longville DO Work Phone: [facility] 06-29-2020 COVID-19 mRNA, Comirnaty (Pfizer) DO Alice Jeremy-Longville Work Phone: [facility] 06-09-2020 COVID-19 mRNA, Comirnaty (Pfizer) DO Alice Jeremy-Longville Work Phone: [facility] 06-29-2015 tetanus toxoid, redu yoselin diphtheria toxoid, and acellular pertussis vaccine, adsorbed Alice Luna-Longville DO Work Phone: [facility] Payers Date Payer Category Payer Self-pay [id number] 2020 Medicaid [employer] [place] [id number] 2020-Present [address] [place] [address] [id number] 1960 Unknown [id number] 2.16.840.1.405883.3.579.2. 356 1962 Unknown [id number] 2.16.840.1.796689.3.579.2. 593 1962 Unknown [id number] 2.16.840.1.209546.3.579.2. 593 1962 Unknown [id number] 2.16.840.1.994791.3.579.2. 593 1962 Unknown [id number] 2.16.840.1.920518.3.579.2. 593 1962 Unknown [id number] 2.16.840.1.747701.3.579.2. 593 1962 Unknown [id number] 2.16.840.1.061566.3.579.2. 593 1962 Unknown [id number] 2.16.840.1.911612.3.579.2. 593 1962 Unknown [id number] 2.16.840.1.953769.3.579.2. 593 1962 Unknown [id number] 2.16.840.1.848316.3.579.2. 593 1962 Unknown [id number] 2.16.840.1.060271.3.579.2. 593 1962 Unknown [id number] 2.16.840.1.194090.3.579.2. 593 1962 Unknown [id number] 2.16.840.1.436331.3.579.2. 1259 1962 Unknown [id number] 2.16.840.1.307376.3.579.2. 1259 1962 Unknown [id number] 2.16.840.1.888634.3.579.2. 1259 1962 Unknown [id number] 2.16.840.1.112018.3.579.2. 1259 1962 Unknown [id number] 2.16.840.1.861102.3.579.2. 1259 1962 Unknown [id number] 2.16.840.1.629049.3.579.2. 1259 1962 Unknown [id number] 2.16.840.1.413345.3.579.2. 1259 1962 Unknown [id number] 2.16.840.1.554954.3.579.2. 1259 1962 Unknown [id number] 2.16.840.1.907130.3.579.2. 1259 1959 Medicaid [id number] 1959 Unknown [id number] 2.16.840.1.153078.19 Private Health Insurance [id number] Unknown [place] BC/BS [id number] Unknown HCAP/HFA/FAP Active [id number] Unknown [id number] 2.16.840.1.443377.3.579.2. 531 Unknown [id number] 2.16.840.1.695681.3.579.2. 531 Social History Date Type Detail Facility Start: 04-24-2023 End: 05-05-2023 Sex Assigned At [facility] Work Phone: Start: 11-09-2021 Tobacco smoking stat us [facility] Never smoked tobacco (finding) [facility] Start: 1960 Sex Assigned At Female F [facility] Start: 05-02-2022 End: 09-03-2022 Tobacco smoking status TNIS Ex-smoker (finding) [facility] End: 03-24-2012 History of tobacco use Current smoker [facility] End: 03-24-2012 History of tobacco use Cigarette Smoker [facility] Start: 01-08-2023 Tobacco use and exposure Smokeless tobacco non-user [facility] Start: 04-27-2023 End: 05-05-2023 Alcohol intake Current drinker of alcohol (finding) [facility] Start: 04-24-2023 End: 05-05-2023 History of Social function [facility] Work Phone: How often to you hav e a drink containing alcohol? 2-3 time sa week [facility] Work Phone: How many standard drinks containing alcohol do you have on a typical day? 1 or 2 [facility] How often do you hav e 6 or more drinks on 1 occasion? Never [facility] Start: 04-24-2023 Alcohol Comment Once a week [facility] Start: 12-04-2022 Gender identity Identifies as female gender (finding) [facility] Medical Equipment Procedure Code Equipment Code Equipment Origin al Text Equipment Identifier Dates Tendon repair Tendon/ligament bone anchor, non-bioabsorbable [id number] [facility] Start: 12-10-2018 Goals Date Patient Goal Desired Activity /State Clinical Notes 12-20-2020 to 05-08-2023 Paul Mcgrath, DO - 05/08/2023 2:30 PM ESTSlove Polo, DO - 04/27/2023 6:53 PM ESTSlove Polo, DO - 04/27/2023 6:52 PM ESTSandra Keven Polo, DO - 04/27/2023 6:51 PM [...] per pt. COLONOSCOPY 12/29/2020 Normal EGD 10/31/2015 EGD/[place] done by Dr. Ortiz (stenosis of upper [...] LIGATION Dr. Ba WISDOM TOOTH EXTRACTION 1981 [place] teeth impacted Family History Problem Relation Name Age of Onset Depression Mother Michela Garrett,Ken Tami(father), Ronni Garrett (b Hyperthyroidism Mother Michela Garrett,Ken Garrett(father), Ronni Garrett (b Osteoporosis Mother Michela Garrett,Ken Garrett(father), Ronni Garrett (b Osteoarthritis Mother Michela Garrett,Ken Garrett(father), Ronni Garrett (b Stroke Mother Michela TamiKen Garrett(father), Ronni Garrett (b Alcohol abuse Father KEN GARRETT Other (brain tumor) Father KEN GARRETT benign brain tumor with shunt due to hydrocephalus Asthma Father KEN GARRETT Heart failure Brother Ronni Garrett CHF Coronary artery disease Brother Ronni Garrett 48 Atrial fibrillation Brother Ronni Garrett 48 Depression Brother Ronni Garrett Severe Depression Heart attack Paternal Grandfather Acute [place] No Known Problems Daughter Healthy Ulcerative colitis [...] yeast vaginitis-Rx diflucan. documented in this encounter [facility] 04-27-2023 History of Presen t illness Narrative [...] Associated Problem(s): Depression, major, in remission (HCC) (CMS/HCC) -Pt is doing well at this time [...] List Diagnosis Class 1 obesity Exercise-induced asthma (CMS/HCC) Arthritis, lumbar spine Gastroesophageal reflux disease without esophagitis Postmenopausal Depression, major, in remission (HCC) (CMS/HCC) Hormone replacement therapy Review of Systems Constitutional: [...] . Postmenopausal Depression, major, in remission (HCC) ([facility]/HCC) Overview Prescribed citalopram Current Assessment & Plan -Pt is doing well at this time on current dose of celexa. Based on review of patient's medications and current medical status; continuation of medications most appropriate. Compliance with medications and/or management recommendations encouraged. Monitor Hormone replacement therapy Overview Prescribed estradiol 0.5 mg daily by PLASTIC MACHINE OPERATOR/Dr Mcgrath Other Visit Diagnoses Encounter for preventative [...] Annual Physical. Alice Polo D.O. Board Certified Head Paper Tester documented in this encounter [facility] 12-09-2022 Evaluation note Encounter Date Diagnosis Assessment Notes Nov, GERD without esophagitis (ICD-10 - K21.9) PATIENT DOING WELL WITH THE PANTOPRAZOLE BID DOSING. SHE REPORTS MAYBE ONCE A WEEK WITH A FLARE OF SYMPTOMS. PATIENT CAN USE PEPCID OTC OR TUMS. [facility] Other 03-09-2023 NoteCONSULTATION CONSULTATION DATE: 05/30/2022 HISTORY [...] for re-evaluation. Patient agrees with this plan.[facility] [id number] NotePROCEDURE: XR HIP LT 2 3V WO PELVIS HISTORY: Pain of left hip joint , chronic COMPARISON: None. FINDINGS: BONES:Small degenerative osteophyte along superior rim of acetabulum. No fracture, dislocation, or significant joint space narrowing. SOFT TISSUES:No visible soft tissue swelling. EFFUSION:None visible. OTHER: Negative. IMPRESSION: 1. No acute bone abnormality. 2. Mild degenerative joint disease. Electronically authenticated by: GENESIS BELLO Date: 2022-05-02 14:36[facility]02-09-2023 NoteCONSULTATION CONSULTATION DATE: 05/02/2022 HISTORY OF PRESENT [...] completed 10 treatments of physical therapy in [place]. The patient does state, at the end [...] followed up in the office post procedure.[facility] [id number] NoteCONSULTATION CONSULTATION DATE: 02/07/2022 HISTORY OF PRESENT [...] review her thoracic x-ray at that time.[facility] [id number] NoteCONSULTATION CONSULTATION DATE: 11/15/2021 This is a [...] indicated. 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 She describes [...] be followed up it the clinic post-procedure. [facility] Signed and Approved by: JONI MAHMOOD . 09/27/2021 16:26:00[facility]12-06-2021 Evaluation note* Encounter Date Diagnosis Assessment Notes Treatment Notes Treatment Clinical Notes Feb, GERD (gastroesophageal reflux disease) (ICD-10 - K21.9) [facility] Other 09-29-2021 Evaluation note* Encounter Date Diagnosis Assessment Notes Treatment Notes Treatment Clinical Notes Nov, GERD (gastroesophage al reflux disease) (ICD-10 - K21.9) GERD home care material was printed EGD START CARAFATE 1 GRAM TID Nov, Irritable bowel synd john with both constipation and diarrhea (ICD-10 - K58.2) Nov, Pharyngoesophageal dysphagia (ICD-10 - R13.14) [facility] Other Evaluation noteNo InformationNort [employer] Other Evaluation noteNo assessment information available [facility] Work Phone: Evaluation note* Diagnosis Encounter for preventative adult health care examination- Primary Arthritis, lumbar spine Depression, major, in remission (HCC) ([facility]/HCC) Gastroesophageal reflux disease without esophagitis Esophageal reflux Postmenopausal Asymptomatic postmenopausal status (age-related) (natural) Hormone replacement therapy Class 1 obesity BMI 29.0-29.9,adult documented in this encounter [facility]* Diagnosis Body mass index (BMI) 28.0-28.9, adult Abnormal weight gain Yeast infection BMI 29.0-29.9,adult documented in this encounter [facility]* Diagnosis Onset Date Resolution Status GERD (gastroesophageal reflux disease) acute [facility] Work Phone: Evaluation note* Diagnosis Onset Date Resolution Status GERD (gastroesophageal reflux disease) acute BMI 27.0-27.9,adult acute Chronic intermittent hypoxia with obstructive sleep apnea acute GERD (gastroesophageal reflux disease) acute Intolerance to BiPAP/CPAP ac maura Obstructive sleep apnea acut e [facility] Work Phone: History general Narrative - Reported* Type Description Date Medical History Gastroesophageal Reflux Disease Medical History Anxiety/Depression Medical History seasonal asthma Surgical History Caesarean Section X 3 Surgical History Tonsillectomy/Adenoidectomy Surgical History Laparoscopy Surgical History Hysteroscopy/Endometrial Ablati on Surgical History Laparoscopy Cholecystectomy Surgical History [facility] tenton interposition Arthro plasty 2019 Hospitalization History See Above [facility] Other Hisxvkj general Narrative - ReportedNortNimbusBase Other Hispcdr general Narrative - Reported* Type Description Date [...] History ablasion-LUMBAR NERVE Hospitalization History See Above [facility] Other Hospital Discharge instructions Additional Instructions Follow up with your primary care doctor Return to the ED If you develop worsening symptoms or concerns[facility] Work Phone: Chief Complaint and [...] Complaint follow up wants to discuss inspire psg/inspire qualification Reason for Visit GERD (gastroesophage al reflux disease) BMI 27.0-27.9,adult Chronic intermittent hypoxia with obstructive sleep apnea GERD (gastroesophageal reflux disease) Intolerance to BiPAP/CPAP Obstructive sleep apnea Family History No Family History Records Found Relationship Condition Age at Onset Recorded Date/T manish Not Specified Atrial fibrillation Unknown father Heart disease Unknown Relationship Condition Age at Onset Recorded Date/T manish Not Specified Atrial fibrillation Unknown father Heart disease Unknown natural son Ulcerative colitis Unknown Advance Directives No Advanced Directives Records Found Advance Directive Response Recorded Date/ Time Advance [...] Status: Inactive Member Role Status Dates Alice Polo , DO Primary Care Provider Active Ken Ortiz , DO Attending Provider Active Team Status: Inactive Member Role Status Dates Alice Polo , DO Primary Care Provider Active Rm Heller APRN Emergency Provider Active Team Status: Active Member Role Status Dates Alice Polo , DO Primary Care Provider Active Team Status: Inactive Member Role Status Dates Alice Polo , DO Primary Care Provider Active Oswaldo Deleon , DO Emergency Provider Active Team Status: Inactive Member Role Status Dates Alice Polo , DO Primary Care Provider, Attend ing Provider Active Team Status: Inactive Member Role Status Dates Alice Polo , DO Primary Care Provider, Referr ing Provider Active Ken Mendez MD Attending Provider Active Team Status: Inactive Member Role Status Dates Alice Polo , DO Primary Care Provider Active Alix Perez NP Attending Provider Active Team Status: Inactive Member Role Status Dates Alice Polo DO Primary Care Provider Active Edison Monroe MD Attending Provider Active 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 Start Date End Date Alice Polo DO [address] [place] [address] PCP - General Internal Medicine 07/30/22 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 Specialty Start Date End Date Alice Polo DO [address] [place] [address] PCP - General Internal Medicine 07/30/22 Team Status: Inactive Member Role Status Dates Alice Polo DO Primary Care Provider Active Start: July 11, 2023 End: July 11, 2023 Gabe Gonzalez APRN Attending Provider Active Start: July 11, 2023 End: July 11, 2023 Team Status: Inactive Member Role Status Dates Alice Polo DO Primary Care Provider Active Start: July 31, 2023 End: July 31, 2023 Ken Mendez MD Attending Provider Active S tart: July 31, 2023 End: July 31, 2023 Team Status: Inactive Member Role Status Dates Alice Polo DO Primary Care Provider Active Start: August 27, 2023 End: August 27, 2023 Ken Mendez MD Attending Provider Active S tart: August 27, 2023 End: August 27, 2023 Goals (unrecognized section and content) Goals may be documented in a n alternate section INFORMATION SOURCE (unrecogn ized section and content) DATE CREATED AUTHOR 12/21/2021 [facility] dical Specialist DATE CREATED AUTHOR AUTHOR'S ORGANIZ ATION 05/25/2022 [facility] DATE CREATED AUTHOR AUTHOR'S ORGANIZ ATION 06/05/2022 [facility] DATE CREATED AUTHOR AUTHOR'S ORGANIZ ATION 07/17/2023 [facility] dical Specialists [facility] DATE CREATED AUTHOR AUTHOR'S ORGANIZ ATION 09/04/2023 [facility] FOR RECORDS PERTAINING TO PATIENTS WHO ARE [...] BE BASED ON THE PRIMARY CLINICAL RECORDS. [facility] provides no warranty or guarantee of the accuracy or completeness of information in this document.
== END 2023-09-05 12:33 | disposition home or self-care (01) ==
LOC: MRI 12:32
PROVIDERS: PCP Internal Medicine; Visit Provider Nurse Practitioner
DX: M54.50 Low back pain, unspecified (principal); M54.2 Cervicalgia
CPT/HCPCS: 72148

== ENCOUNTER 2023-09-11 07:58 | Outpatient (OUT) | payer OTHER, SELFPAY ==
--- NOTE | 2023-09-11 07:59 | P.CN_ITS ---
Consult Note: HPI Data of Consult Patient: known to practice within the last 3 years Requesting Physician: Jordyn Schroeder NP Primary Care Provider: PETER FERRER Consult Narrative Reason for consult: f/u Narrative: Flores Georges a pleasant 63 year old female with chronic neck and back pain. Patient reporting pain 3410 constant in low back with neck pain, increases to severe at its worst. Pain increased with activity and in the evening. Patient reports intermittent heaviness numbness and weakness of left leg. Pain has increased over the last three months with bilateral legs and toes going numb, and periodic burning tingling of neck/upper back. Finds mild improvement from celebrex 200mg BID PRN, baclofen 5-10mg PRN without side effects. Continues to engage in provider guided HEP greater than 6 weeks with mild benefit. patient trialed TENS without benefit, she has attended 3 home care and home health aides teacher visits with mild benefit. cc:: CC: Jordyn Schroeder NP Review of Systems ROS Status of ROS 10 or more systems reviewed and unremark able except as noted in history and below Musculoskeletal Reports: back pain and neck pain PFSH PFSH Medical History Surgical History H/O hand surgery ?Z98.890 - Other specified postprocedural states (ICD-10) History of cholecystectomy ?Z90.49 - Acquired absence of other specified parts of digestive tract (ICD- 10) H/O: hysterectomy ?Z90.710 - Acquired absence of both cervix and uterus (ICD-10) Meds Home Medications and Allergies Home Medications ?Medication ?Instructions ?Recorded ?Confirmed ?Type baclofen 10 mg tablet 10 mg PO DAILY 08/29/22 01/28/23 History citalopram 20 mg tablet (Celexa) 20 mg PO DAILY 08/29/22 01/28/23 History estradiol 1 mg tablet (Estrace) 1 mg PO DAILY 08/29/22 01/28/23 History omeprazole 40 mg capsule,delayed 40 mg PO DAILY 08/29/22 01/28/23 History release celecoxib 200 mg capsule mg 10/08/22 History diazepam 5 mg tablet mg 01/07/23 History Allergies Allergy/AdvReac Type Severity Reaction Status Date / Time Sulfa (Sulfonamide Allergy Mild Unknown Verified 01/07/23 12:05 Antibiotics) Exam Constitutional Documenting provider has reviewed patient's vital signs: yes Common normals: no apparent distress, oriented x3, healthy appearing, alert and well nourished General appearance: cooperative HENNJ Common normals: normocephalic, hearing grossly normal bilaterally and moist oral mucous membranes Head and scalp: normocephalic Eye Common normals: PERRL Pupil: PERRL Neck & C-Spine Common normals: full ROM General: normal visual inspection Cervical spine: pain with cervical ROM, cervical spine tenderness, paracervical muscle tenderness and paracervical muscle spasm Other: negative sprulings strength 4/5 in BUE pain over C5-7 facets Chest Common normals: inspection of chest normal Respiratory Common normals: normal respiratory effort, no retractions and no use of accessory muscles Back & Pelvis Thoracic spine/upper back: normal to inspection, paraspinal muscle tenderness and paraspinal muscle spasm Lumbar spine/lower back: normal to inspection, paraspinal muscle tenderness, paraspinal muscle spasm and straight leg raise positive left Sacroiliac joints: SI joints normal Other: left lower extremity strength 4/5 sensation decreased following left L5/S1 pattern reports increase in heaviness and weakness of LLE with standing ambulation and stairs axial low back pain increased over bilateral L2 L3 facets Extremity Common normals: normal to inspection and full ROM Neuro Common normals: oriented x3, CN's II-XII intact bilaterally, moves all extremities, no focal motor deficits, no sensory deficits noted and deep tendon reflexes 2+ bilaterally Sensorium/orientation: alert Motor exam: strength 5/5 throughout and no movement abnormalities noted Psych Common normals: mental status grossly normal, thought process normal, cooperative, affect normal, speech normal and activity/motor behavior normal Speech: normal speech Thought process: normal thought process Results Imaging Lumbar MRI: Attestation: I have reviewed the pertinent imaging results. Radiologist's impression: 12-L1: No significant disc/facet abnormality, spinal stenosis, or foraminal stenosis. L1-L2: No significant disc/facet abnormality, spinal stenosis, or foraminal stenosis. L2-L3: No significant disc/facet abnormality, spinal stenosis, or foraminal stenosis. L3-L4: Mild diffuse disc bulging without significant central canal or foraminal narrowing. L4-L5: Mild central canal and moderate bilateral foramen narrowing. Mild diffuse disc bulging without disc at reduction. Moderate degenerative facet arthropathy and ligamentum flavum thickening bilaterally. L5-S1: Mild central canal and moderate-marked bilateral foramen narrowing. Mild diffuse disc bulging without disc at reduction. Moderate degenerative facet arthropathy bilaterally Cervical Xray: Attestation: I have reviewed the pertinent imaging results. Radiologist's impression: BONES: Straightening of normal lordotic curvature. No fracture or spondylolisthesis. Multilevel moderate degenerative facet arthropathy. DISC SPACES: Mild narrowing C3-4. Moderate narrowing C4-5, C5-6, C6-7. Posterior disc osteophyte complexes C4-5 through C6-7 resulting in foraminal narrowing and likely central canal narrowing. PARASPINOUS: Negative. No paraspinous abnormality is seen. OTHER: Negative. IMPRESSION: 1. Moderate degenerative changes of lower cervical spine with suspected moderate-marked foramen narrowing at multiple levels. Consider MRI for further evaluation. Additional Findings Additional findings: If on a controlled substance or opioids, I have checked an [place] report on this patient and there are no aberrancies noted in the prescribing history.??If on a controlled substance or opioid a drug screen was completed and reviewed within the last year, and if there has not been a drug screen completed we ordered one today to monitor higher risk, state monitored pain medication use. As part of providing excellent, safe, comprehensive care, the following was completed at our patient's visit: 1. A medication reconciliation and review to ensure accurate knowledge of current/active medications, including asking our patients to inform us about any iipu-skq-yzyabca medications or herbal remedies/nutritional supplements/alternative remedies. 2. A review to specifically ensure our patients have had annual screening for screening for depression, screening for tobacco use, and screening for unhealthy alcohol use. For concerning screenings had a discussion with the patient, provi ded patient education, and recommended follow-up with primary care provider when appropriate. If patient noted with a risk of falling, they received education on strength, gait, and balance training to prevent future risk of falling. Assessment and Plan Assessment and Plan (1) Lumbar stenosis with neurogenic claudication: (2) Lumbar spondylosis: (3) Muscle spasm: (4) Cervical spondylosis: (5) Cervical spinal stenosis: (6) Lumbar radiculopathy: (7) Chronic neck pain: Plan Lumbar MRI without contrast reviewed. Recommend L5-S1 TED under fluoroscopy for lumbar stenosis with NC. risks vs benefits reviewed with patient patient has completed greater than 6 weeks of provider guided HEP within the last six months for chronic neck pain, recent cervical xray recommended further evaluation with MRI to evaluate cervical stenosis. Essential to obtain cervical MRI without contrast to evaluate cervical stenosis, chronic neck pain, and formulate treatment plan. Cervical pain unresponsive to HEP greater than 6 weeks, heat/ice, ibuprofen and tylenol. start gabapentin 300mg HS for lumbar stenosis with NC/lumbar radiculopathy continue current medications as needed/tolerated continue HEP as tolerated f/u 2 weeks after TED
--- OUTSIDE RECORDS SUMMARY | 2023-09-11 08:05 | XMS_ITS | CCD ---
Author Organization [facility] Care Team Providers Care Snow Groomer Name Role Phone Ken Ortiz Unavailable DO Alice Polo Primary Care Provider [phone] DO Ken Ortiz Attending Provider TOMMIE Heller Emergency Provider [phone] DO Alice Polo Primary Care Provider DO Oswaldo Deleon Emergency Provider [phone] DO Alice Polo Attending Provider Dr. Alice Polo Primary Care [facility] Alice Polo Primary Care U [facility] Care Unavailable COREA ., DR ARNAV Martínez Attending Unavailable COREA ., DR ARNAV Martínez Admitting Unavailable COREA ., DR ARNAV Martínez Consulting Unavailable [facility] Primary Care Unavailable MAHMOOD ., JONI Consulting Unavailable COREA ., DR ARNAV Martínez Attending Unavailable COREA ., DR ARNAV Martínez Admitting Unavailable [facility] Primary Care Unavailable MAHMOOD ., JONI Consulting Unavailable COREA ., DR ARNAV Martínez Attending Unavailable COREA ., DR ARNAV Martínez Admitting Unavailable [facility] Primary Care Unavailable LAKSHMIPATHY ., NARENDRANATH Admitting [place] [facility] ., NARENDRANATH Attending [place] [facility] Primary Care Unavailable COREA ., DR ARNAV Martínez Consulting Unavailable COREA ., DR ARNAV Martínez Attending Unavailable COREA ., DR ARNAV Martínez Admitting Unavailable COREA ., DR ARNAV Martínez Attending Unavailable COREA ., DR ARNAV Martínez Admitting Unavailable MISC, DR SCHMIDT Consulting Unavailable [facility] Primary Care Unavailable MAHMOOD ., JONI Consulting Unavailable MAHMOOD ., JONI Consulting Unavailable COREA ., DR ARNAV Martínez Attending Unavailable COREA ., DR ARNAV Martínez Admitting Unavailable [facility] Primary Care Unavailable COREA ., DR ARNAV Martínez Consulting Unavailable COREA ., DR ARNAV Martínez Attending Unavailable COREA ., DR ARNAV Martínez Admitting Unavailable [facility] Primary Care Unavailable CRISOSTOMO, ROLAN Consulting Unavailable [facility] Primary Care Unavailable MAHMOOD ., JONI Attending Unavailable MAHMODO ., JONI Admitting Unavailable ZIEBER, DR GENESIS Mo Consulting Unavailable MAHMOOD ., JONI Consulting Unavailable LU[facility], ALICE Primary Care Unavailable MAHMOOD ., JONI Attending Unavailable MAHMOOD ., JONI Admitting Unavailable ZIEBER, DR GENESIS Mo Consulting Unavailable MAHMOOD ., JONI Consulting Unavailable MAHMOOD ., JONI Consulting Unavailable COREA ., DR ARNAV Martínez Attending Unavailable COREA ., DR ARNAV Martínez Admitting Unavailable [facility] Primary Care Unavailable DO Alice Polo Primary Care Provider DO Oswaldo Deleon Emergency Provider [phone] DO Alice Polo Attending Provider DO Alice Polo Referring Provider [phone] MD Ken Mendez Attending Provider Edison Monroe Unavailable DO Alice Polo Primary Care Provider MD Edison Monroe Attending Provider [phone] CRISTEL Perez Attending Provider Gabe Gonzalez Unavailable Alice Polo DO Primary Care Provider PAUL MCGRATH Attending Unavailable VISCPAUL Dupree Attending Unavailable ALICE POLO Attending Unavailab le VISCPAUL Dupree Attending Unavailable VISCLeia, PAUL Thakur Attending Unavailable ALICE POLO Referring Unavailab RAQUEL Farrell Attending Unavailable RAQUEL ALFONSO Referring Unavailable VISCIPAUL Attending Unavailable VISCI, PAUL A Attending Unavailable DO Alice Polo Primary Care Provider MD Ken Mendez Attending Provider Alice Polo Primary Care Unavailable Ken Mendez Attending Unavailable Ken Mendez Admitting Unavailable Alix Perez Admitting Unavailable Alice Polo Primary Care Unavailable Alix Perez Attending Unavailable Allergies Allergy Classification Reported Allergen(s) Allergy Type Date of Onset Reaction(s) Facility (1 source) Sulfonamides (Antibiotic) Drug allergy (disorder) [facility] (2 sources) Sulfonamides (Antibiotic); Translations: [Sulfa (Sulfonamide Antibiotics)] Allergy to substance 3 [facility] (3 sources) Sulfonamides (Antibiotic) Drug Allergy [...] 11, 2023 12:00am take 1 capsule by [facility] every twenty-four hours as needed CeleBREX [...] 03, 2022 12:15pm [facility] CeleXA 10 MG 1 [...] 05/08/2023 06/07/2023 Active take 1 capsule by [facility] every twenty-four hours Adipex-P 37.5 MG 1 [...] every four to six hours Hydrocodone-Acetami nophen ([place]) 5-325 mg tablet Discontinued 1 - 2 TAB PO EVERY 4-6 HOURS 50 7 December 10, 2018 December 10, 2018 10:44am Start: 12-10-2018 End: 12-10-2018 take 1 tablet by mouth every four to six hours Hydrocodone-Acetaminophen ([place]) 5-325 mg tablet Discontinued 1 - 2 TAB PO EVERY 4-6 HOURS 50 7 December 10, 2018 December 10, 2018 10:44am Start: 12-10-2018 End: 12-10-2018 take 1 tablet by mouth every four to six hours Hydrocodone-Acetaminophen ([place]) 5-325 mg tablet Discontinued 1 - 2 TAB PO EVERY 4-6 HOURS 50 7 December 10, 2018 December 10, 2018 10:44am Start: 12-10-2018 End: 12-10-2018 take 1 tablet by mouth every four to six hours Hydrocodone-Acetaminophen ([place]) 5-325 mg tablet Discontinued 1 - 2 TAB PO EVERY 4-6 HOURS 50 7 December 10, 2018 December 10, 2018 10:44am Start: 12-10-2018 End: 12-10-2018 take 1 tablet by mouth every four to six hours Hydrocodone-Acetaminophen ([place]) 5-325 mg tablet Discontinued 1 - 2 TAB PO EVERY 4-6 HOURS 50 7 December 10, 2018 December 10, 2018 10:44am Start: 12-10-2018 End: 12-10-2018 take 1 tablet by mouth every four to six hours Hydrocodone-Acetaminophen ([place]) 5-325 mg tablet Discontinued 1 - 2 TAB PO EVERY 4-6 HOURS 50 7 December 10, 2018 December 10, 2018 9:44am Start: 12-10-2018 End: 12-10-2018 take 1 tablet by mouth every four to six hours Hydrocodone-Acetaminophen ([place]) 5-325 mg tablet Discontinued 1 - 2 TAB PO EVERY 4-6 HOURS 50 7 December 10, 2018 December 10, 2018 9:44am Start: 12-10-2018 End: 12-10-2018 take 1 tablet by mouth every four to six hours Hydrocodone-Acetaminophen ([place]) 5-325 mg tablet Discontinued 1 - 2 TAB PO EVERY 4-6 HOURS 50 7 December 10, 2018 December 10, 2018 10:44am Start: 04-27-2018 End: 12-10-2018 take 1 tablet by mouth every four to six hours Hydrocodone-Acetaminophen ([place]) 5-325 mg tablet Discontinued 1 - 2 [...] alveolar hypoventilation] 07-31-2023 Chronic Residual codes; unclassified (2 sources) Obstructive sleep apnea (adult) (pediatric); Translations: [Obstructive sleep apnea (adult)(pediatric)] Onset: 4 07-31-2023 Chronic Residual codes; unclassified (1 source) Obstructive sleep apnea (adult)(pediatric); Translations: [Obstructive sleep apnea (adult) (pediatric)] Onset: 3 Chronic Residual codes; unclassified (4 sources) Postmenopausal [...] aPTT Coag (PPP) [Time] 30.0 s 25.1-36.5 [facility] Basophils Auto (Bld) [#/Vol] Ordered By: Oswaldo Deleon on 05-02-2022 Basophils (Bld) [#/Vol] 0.0 10*3/uL 0.0-0.2 [facility] Basophils/100 WBC Auto (Bld) Ordered By: Oswaldo Deleon on 05-02-2022 Basophils/100 WBC (Bld) 0.7 % . [facility] Body fluid albumin measureme nt (mass/volume)Ordered By: Oswaldo Deleon on 05-02-2022 Albumin (Body fld) [Mass/Vol] 4.0 g/dL 3.2-5.5 [facility] Creatine kinase [Enzymatic a ctivity/volume] in Serum or PlasmaOrdered By: Oswaldo Deleon on 05-02-2022 CK [Catalytic activity/Vol] 50 U/L 22-269 [facility] Creatinine and Glomerular fi ltration rate.predicted panel (S/P/Bld)Ordered By: Oswaldo Deleon on 05-02-2022 Creatinine [Mass/Vol] 0.79 mg/dL 0.44-1.03 [facility] Eosinophils Auto (Bld) [#/Vo l]Ordered By: Oswaldo Deleon on 05-02-2022 Eosinophils (Bld) [#/Vol] 0.4 10*3/uL 0.0-0.45 [facility] Eosinophils/100 WBC Auto (Bl d)Ordered By: Oswaldo Deleon on 05-02-2022 Eosinophils/100 WBC (Bld) 4.9 % . [facility] Erythrocyte distribution wid th Auto (RBC) [Ratio]Ordered By: Oswaldo Deleon on 05-02-2022 Erythrocyte distribution width (RBC) [Ratio] 13.0 % 11.9-15.3 [facility] Estimated glomerular filtrat ion rate (GFR) non- AmericanOrdered By: Oswaldo Deleon on 05-02-2022 GFR/1.73 sq M.predicted among non-blacks MDRD (S/P/Bld) [Vol rate/Area] > 60 mL/Min [facility] Globulin Calc (S) [Mass/Vol] Ordered By: Oswaldo Deleon on 05-02-2022 Globulin (S) [Mass/Vol] 2.9 g/dL [facility] Hematocrit Auto (Bld) [Volum e fraction]Ordered By: Oswaldo Deleon on 05-02-2022 Hematocrit (Bld) [Volume fraction] 43.7 % 34.0-46.4 [facility] Hemoglobin [Mass/volume] in BloodOrdered By: Oswaldo Deleon on 05-02-2022 Hemoglobin (Bld) [Mass/Vol] 14.7 g/dL 11.8-15.4 [facility] Laboratory - Chemistry and C hemistry - challengeOrdered By: Oswaldo Deleon on 05-02-2022 Magnesium [Mass/Vol] 2.0 mg/dL 1.6-2.6 [facility] Laboratory - CoagulationOrde red By: Oswaldo Deleon on 05-02-2022 PT Coag (PPP) [Time] 11.6 s 9.0-12.9 [facility] Leukocytes [#/volume] correc nikhil for nucleated erythrocytes in Blood by Automated counOrdered By: Oswaldo Deleon on 05-02-2022 WBC corrected for nucl RBC Auto (Bld) [#/Vol] 7.4 10*3/uL 3.8-11.6 [facility] Lymphocytes Auto (Bld) [#/Vo l]Ordered By: Oswaldo Deleon on 05-02-2022 Lymphocytes (Bld) [#/Vol] 1.6 10*3/uL 1.00-4.8 [facility] Lymphocytes/100 WBC Auto (Bl d)Ordered By: Oswaldo Deleon on 05-02-2022 Lymphocytes/100 WBC (Bld) 22.0 % . [facility] MCH Auto (RBC) [Entitic mass ]Ordered By: Oswaldo Deleon on 05-02-2022 MCH (RBC) [Entitic mass] 30.0 pg 24.7-34.3 [facility] MCHC Auto (RBC) [Mass/Vol]Or dered By: Oswaldo Deleon on 05-02-2022 MCHC (RBC) [Mass/Vol] 33.7 g/dL 32.0-35.0 [facility] MCV Auto (RBC) [Entitic vol] Ordered By: Oswaldo Deleon on 05-02-2022 MCV (RBC) [Entitic vol] 88.9 fL 80-100 [facility] Monocyte distribution width [Entitic volume] in Blood by AutomatedOrdered By: Oswaldo Deleon on 05-02-2022 Monocyte distribution width Auto (Bld) [Entitic vol] 18.10 % 0.00-20.00 [facility] Monocytes Auto (Bld) [#/Vol] Ordered By: Oswaldo Deleon on 05-02-2022 Monocytes (Bld) [#/Vol] 0.8 10*3/uL 0.0-0.8 [facility] Monocytes/100 WBC Auto (Bld) Ordered By: Oswaldo Deleon on 05-02-2022 Monocytes/100 WBC (Bld) 10.2 % . [facility] Neutrophils Auto (Bld) [#/Vo l]Ordered By: Oswaldo Deleon on 05-02-2022 Neutrophils (Bld) [#/Vol] 4.6 10*3/uL 1.8-7.7 [facility] Neutrophils/100 WBC Auto (Bl d)Ordered By: Oswaldo Deleon on 05-02-2022 Neutrophils/100 WBC (Bld) 62.2 % . [facility] No Panel InformationOrdered By: Oswaldo Deleon on 05-02-2022 D-Dimer Quantitative (PE/DVT) < 200 ng/mL 0-243 [facility] Comment on above: The reference range for [...] conditions. Estimated GFR () > 60 mL/Min [facility] Comment on above: GFR estimated refere nce range: According to KDOQI guidelines, <60 ml/min/1.73m2 is sufficient to diagnose a patient with chronic kidney disease. Pharmacy Creatinine Clearance (Chem 67.96 [facility] Nucleated erythrocytes [Pres ence] in Blood by Automated countOrdered By: Oswaldo Deleon on 05-02-2022 Nucleated RBC Auto Ql (Bld) 0.1 /100{WBC} 0-0.5 [facility] Platelet mean volume Auto (B ld) [Entitic vol]Ordered By: Oswaldo Deleon on 05-02-2022 Platelet mean volume (Bld) [Entitic vol] 8.7 fL 6.3-10.7 [facility] Platelet poor plasma interna tional normalized ratio (INR) by coagulation assay (relatOrdered By: Oswaldo Deleon on 05-02-2022 INR Coag (PPP) [Relative time] 1.0 {INR} [facility] Comment on above: INR Therapeutic Rang e [...] 05-02-2022 Platelets (Bld) [#/Vol] 271 10*3/uL 150-450 [facility] Protein [Mass/volume] in Ser um or PlasmaOrdered By: Oswaldo Deleon on 05-02-2022 Protein [Mass/Vol] 6.9 g/dL 6.1-7.9 [facility] RBC Auto (Bld) [#/Vol]Ordere d By: Oswaldo Deleon on 05-02-2022 RBC (Bld) [#/Vol] 4.92 10*6/uL 3.60-5.00 [facility] Serum or plasma alanine reyna otransferase measurement without P-5'-P (enzymatic activiOrdered By: Oswaldo Deleon on 05-02-2022 ALT No additional P-5'-P [Catalytic activity/Vol] 21 U/L 10-60 [facility] Serum or plasma albumin/glob ulin mass ratioOrdered By: Oswaldo Deleon on 05-02-2022 Albumin/Globulin [Mass ratio] 1.4 {ratio} [facility] Serum or plasma alkaline raphael sphatase measurement (enzymatic activity/volume)Ordered By: Oswaldo Deleon on 05-02-2022 ALP [Catalytic activity/Vol] 56 U/L 32-92 [facility] Serum or plasma anion gap de terminationOrdered By: Oswaldo Deleon on 05-02-2022 Anion gap [Moles/Vol] 11.4 mmol/L 6.0-15.0 [facility] Serum or plasma aspartate am inotransferase measurement (enzymatic activity/volume)Ordered By: Oswaldo Deleon on 05-02-2022 AST [Catalytic activity/Vol] 20 U/L 10-42 [facility] Serum or plasma calcium shellie urement (mass/volume)Ordered By: Oswaldo Deleon on 05-02-2022 Calcium [Mass/Vol] 9.4 mg/dL 8.2-10.2 [facility] Serum or plasma chloride isidro surement (moles/volume)Ordered By: Oswaldo Deleon on 05-02-2022 Chloride [Moles/Vol] 100 mmol/L 95-114 [facility] Serum or plasma creatine kin ase MB (CKMB)/total creatine kinase (CK) ratio by calculaOrdered By: Oswaldo Deleon on 05-02-2022 CK.MB Calc [Catalytic fraction] 1.8 % 0.00-2.50 [facility] Serum or plasma creatine kin ase MB measurement (mass/volume)Ordered By: Oswaldo Deleon on 05-02-2022 CK.MB [Mass/Vol] 0.9 ng/mL 0.6-6.3 [facility] Serum or plasma glucose shellie urement (mass/volume)Ordered By: Oswaldo Deleon on 05-02-2022 Glucose [Mass/Vol] 87 mg/dL 70-100 [facility] Comment on above: ADA recommended refe rence rangeRandom Glucose Reference Range is dependent on time and content of last meal. Glucose of more than 200 mg/dL in a nonstressed, ambulatory subject supports the diagnosis of Diabetes Mellitus. Serum or plasma potassium me asurement (moles/volume)Ordered By: Oswaldo Deleon on 05-02-2022 Potassium [Moles/Vol] 3.9 mmol/L 3.5-5.1 [facility] Serum or plasma sodium measu rement (moles/volume)Ordered By: Oswaldo Deleon on 05-02-2022 Sodium [Moles/Vol] 135 mmol/L 136-146 [facility] Serum or plasma total biliru bin measurement (mass/volume)Ordered By: Oswaldo Deleon on 05-02-2022 Bilirubin [Mass/Vol] 0.5 mg/dL 0.3-1.2 [facility] Serum or plasma total carbon dioxide measurement (moles/volume)Ordered By: Oswaldo Deleon on 05-02-2022 CO2 [Moles/Vol] 27.5 mmol/L 22.0-30.0 [facility] Serum or plasma urea nitroge n measurement (mass/volume)Ordered By: Oswaldo Deleon on 05-02-2022 Urea nitrogen [Mass/Vol] 21 mg/dL 9- [facility] Troponin I.cardiac [Mass/vol ume] in Serum or Plasma by High sensitivity methodOrdered By: Oswaldo Deleon on 05-02-2022 Troponin I.cardiac High sensitivity method [Mass/Vol] 3 pg/mL 0-15 [facility] WBC Auto (Bld) [#/Vol]Ordere d By: Oswaldo Deleon on 05-02-2022 WBC (Bld) [#/Vol] 7.4 10*3/uL 3.8-11.6 [facility] XR TSPINE MIN 4 VIEWSon 01-22 XR [...] GENESIS BELLO Date: 2022-02-07 15:12 Normal [facility] SCREENING MAMMOGRAM W/NUPUR, BILATERAL*on 12-06-2021 SCREENING MAMMOGRAM W/NUPUR, BILATERAL* CLINICAL HISTORY: Screening Mammogram COMPARISON: Priors dating back to 2016. TECHNIQUE: 2D and 3D mammogram imaging of both breasts was performed. RESULT: DENSITY: There are scattered areas of fibroglandular density. There is no suspicious mass, asymmetry, architectural distortion, or calcification. No significant change since the prior mammograms. IMPRESSION: BIRADS 1 : NEGATIVE, NORMAL INTERVAL FOLLOW UP FOLLOW-UP: 12 months DENSITY: Scattered MAMMOGRAPHY IS VERY IMPORTANT TO YOUR HEALTH. THE CURRENT [place] [employer] OF [employer] AND [employer]PREHENS[employer]WORK GUIDELINES RECOMMENDS ANNUAL MAMMOGRAPHY BEGINNING AT AGE 40 THIS FACILITY USES A REMINDER SYSTEM TO ENSURE ALL PATIENTS RECEIVE REMINDER NOTIFICATIONS AT THE APPROPRIATE TIME BASED ON THE RECOMMENDATIONS OF THIS EXAM. 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 Accredited by the ACR and FDA. Report reported and signed by Paulino Will on 12/06/2021 1003 Normal [facility] Specialist Basophils Auto (Bld) [#/Vol] Ordered By: Ken Ortiz on 10-04-2021 Basophils (Bld) [#/Vol] 0.0 10*3/uL 0.0-0.2 [facility] Basophils/100 WBC Auto (Bld) Ordered By: Ken Ortiz on 10-04-2021 Basophils/100 WBC (Bld) 0.7 % . [facility] Blood hemoglobin measurement (mass/volume)Ordered By: Ken Ortiz on 10-04-2021 Hemoglobin (Bld) [Mass/Vol] 14.6 g/dL 11.8-15.4 [facility] Blood leukocytes automated c ount (number/volume)Ordered By: Ken Ortiz on 10-04-2021 WBC (Bld) [#/Vol] 4.4 10*3/uL 4.5-11.0 [facility] Body fluid albumin measureme nt (mass/volume)Ordered By: Ken Ortiz on 10-04-2021 Albumin (Body fld) [Mass/Vol] 3.7 g/dL 3.2-5.5 [facility] C reactive protein [Mass/vol ume] in Serum or PlasmaOrdered By: Ken Ortiz on 10-04-2021 CRP [Mass/Vol] 0.6 mg/dL 0.0-1.0 [facility] Creatinine and Glomerular fi ltration rate.predicted panel (S/P/Bld)Ordered By: Ken Ortiz on 10-04-2021 Creatinine [Mass/Vol] 0.74 mg/dL 0.44-1.03 [facility] Elastase.pancreatic [Mass/ma ss] in StoolOrdered By: Ken Ortiz on 10-04-2021 Elastase.pancreatic (Stl) [Mass/Mass] >500 >200 [facility] Comment on above: Result Units: ug Luz st./g Severe Pancreatic Insufficiency: <100 Moderate Pancreatic Insufficiency: 100 - 200 Normal: >200 Performed at: - [facility] [id number] Acute Specialist: Lamont Young MD, Phone: [phone] Eosinophils Auto (Bld) [#/Vo l]Ordered By: Ken Ortiz on 10-04-2021 Eosinophils (Bld) [#/Vol] 0.2 10*3/uL 0.0-0.45 [facility] Eosinophils/100 WBC Auto (Bl d)Ordered By: Ken Ortiz on 10-04-2021 Eosinophils/100 WBC (Bld) 5.2 % . [facility] Erythrocyte distribution wid th Auto (RBC) [Ratio]Ordered By: Ken Ortiz on 10-04-2021 Erythrocyte distribution width (RBC) [Ratio] 13.1 % 11.9-15.3 [facility] Erythrocyte sedimentation ra te by Photometric methodOrdered By: Ken Ortiz on 10-04-2021 ESR Photometric method (Bld) [Velocity] 5 mm/hr 0-29 [facility] Estimated glomerular filtrat ion rate (GFR) non- AmericanOrdered By: Ken Ortiz on 10-04-2021 GFR/1.73 sq M.predicted among non-blacks MDRD (S/P/Bld) [Vol rate/Area] > 60 mL/Min [facility] Globulin Calc (S) [Mass/Vol] Ordered By: Ken Ortiz on 10-04-2021 Globulin (S) [Mass/Vol] 2.5 g/dL [facility] Hematocrit Auto (Bld) [Volum e fraction]Ordered By: Ken Ortiz on 10-04-2021 Hematocrit (Bld) [Volume fraction] 43.7 % 34.0-46.4 [facility] IgA [Mass/volume] in Serum o r PlasmaOrdered By: Ken Ortiz on 10-04-2021 IgA [Mass/Vol] 168 mg/dL 87-352 [facility] Comment on above: Performed at: [address] [id number] Acute Specialist: Kevin Sanders PhD, Phone: [phone] Laboratory - Hematology and Cell countsOrdered By: Ken Ortiz on 10-04-2021 Nucleated RBC/100 WBC (Bld) [Ratio] 0.0 % 0-0.5 [facility] Lymphocytes Auto (Bld) [#/Vo l]Ordered By: Ken Ortiz on 10-04-2021 Lymphocytes (Bld) [#/Vol] 1.5 10*3/uL 1.00-4.8 [facility] Lymphocytes/100 WBC Auto (Bl d)Ordered By: Ken Ortiz on 10-04-2021 Lymphocytes/100 WBC (Bld) 34.1 % . [facility] MCH Auto (RBC) [Entitic mass ]Ordered By: Ken Ortiz on 10-04-2021 MCH (RBC) [Entitic mass] 29.8 pg 24.7-34.3 [facility] MCHC Auto (RBC) [Mass/Vol]Or dered By: Ken Ortiz on 10-04-2021 MCHC (RBC) [Mass/Vol] 33.5 g/dL 32.0-35.0 [facility] MCV Auto (RBC) [Entitic vol] Ordered By: Ken Ortiz on 10-04-2021 MCV (RBC) [Entitic vol] 88.9 fL 80-100 [facility] Monocytes Auto (Bld) [#/Vol] Ordered By: Ken Ortiz on 10-04-2021 Monocytes (Bld) [#/Vol] 0.4 10*3/uL 0.0-0.8 [facility] Monocytes/100 WBC Auto (Bld) Ordered By: Ken Ortiz on 10-04-2021 Monocytes/100 WBC (Bld) 8.1 % . [facility] Neutrophils Auto (Bld) [#/Vo l]Ordered By: Ken Ortiz on 10-04-2021 Neutrophils (Bld) [#/Vol] 2.3 10*3/uL 1.8-7.7 [facility] Neutrophils/100 WBC Auto (Bl d)Ordered By: Ken Ortiz on 10-04-2021 Neutrophils/100 WBC (Bld) 51.9 % . [facility] No Panel InformationOrdered By: Ken Ortiz on 10-04-2021 Endomysial IgA Antibody Negative Negative [facility] Estimated GFR () > 60 mL/Min [facility] Comment on above: GFR estimated refere nce range: According to KDOQI guidelines, <60 ml/min/1.73m2 is sufficient to diagnose a patient with chronic kidney disease. Pharmacy Creatinine Clearance (Chem N/A [facility] Platelet mean volume Auto (B ld) [Entitic vol]Ordered By: Ken Ortiz on 10-04-2021 Platelet mean volume (Bld) [Entitic vol] 9.2 fL 6.3-10.7 [facility] Platelets Auto (Bld) [#/Vol] Ordered By: Ken Ortiz on 10-04-2021 Platelets (Bld) [#/Vol] 286 10*3/uL 150-450 [facility] Protein [Mass/volume] in Ser um or PlasmaOrdered By: Ken Ortiz on 10-04-2021 Protein [Mass/Vol] 6.2 g/dL 6.1-7.9 [facility] RBC Auto (Bld) [#/Vol]Ordere d By: Ken Ortiz on 10-04-2021 RBC (Bld) [#/Vol] 4.92 10*6/uL 3.60-5.00 [facility] Serum gliadin peptide IgA an tibody assay (units/volume)Ordered By: Ken Ortiz on 10-04-2021 Gliadin peptide IgA Qn (S) 4 units 0-19 [facility] Comment on above: Negative 0 - 19 Weak Positive 20 - 30 Moderate to Strong Positive >30 Serum gliadin peptide IgG an tibody assay (units/volume)Ordered By: Ken Ortiz on 10-04-2021 Gliadin peptide IgG Qn (S) 2 units 0-19 [facility] Comment on above: Negative 0 - 19 Weak Positive 20 - 30 Moderate to Strong Positive >30 Serum or plasma alanine reyna otransferase measurement without P-5'-P (enzymatic activiOrdered By: Ken Ortiz on 10-04-2021 ALT No additional P-5'-P [Catalytic activity/Vol] 16 U/L 10-60 [facility] Serum or plasma albumin/glob ulin mass ratioOrdered By: Ken Ortiz on 10-04-2021 Albumin/Globulin [Mass ratio] 1.5 {ratio} [facility] Serum or plasma alkaline raphael sphatase measurement (enzymatic activity/volume)Ordered By: Ken Ortiz on 10-04-2021 ALP [Catalytic activity/Vol] 55 U/L 32-92 [facility] Serum or plasma aspartate am inotransferase measurement (enzymatic activity/volume)Ordered By: Ken Ortiz on 10-04-2021 AST [Catalytic activity/Vol] 18 U/L 10-42 [facility] Serum or plasma calcium shellie urement (mass/volume)Ordered By: Ken Ortiz on 10-04-2021 Calcium [Mass/Vol] 9.7 mg/dL 8.2-10.2 [facility] Serum or plasma chloride isidro surement (moles/volume)Ordered By: Ken Ortiz on 10-04-2021 Chloride [Moles/Vol] 101 mmol/L 95-114 [facility] Serum or plasma glucose shellie urement (mass/volume)Ordered By: Ken Ortiz on 10-04-2021 Glucose [Mass/Vol] 85 mg/dL 70-100 [facility] Comment on above: ADA recommended refe rence range Random Glucose Reference Range is dependent on time and content of last meal. Glucose of more than 200 mg/dL in a nonstressed, ambulatory subject supports the diagnosis of Diabetes Mellitus. Serum or plasma potassium me asurement (moles/volume)Ordered By: Ken Ortiz on 10-04-2021 Potassium [Moles/Vol] 4.4 mmol/L 3.5-5.1 [facility] Serum or plasma sodium measu rement (moles/volume)Ordered By: Ken Ortiz on 10-04-2021 Sodium [Moles/Vol] 138 mmol/L 136-146 [facility] Serum or plasma total biliru bin measurement (mass/volume)Ordered By: Ken Ortiz on 10-04-2021 Bilirubin [Mass/Vol] 0.5 mg/dL 0.3-1.2 [facility] Serum or plasma total carbon dioxide measurement (moles/volume)Ordered By: Ken Ortiz on 10-04-2021 CO2 [Moles/Vol] 30.4 mmol/L 22.0-30.0 [facility] Serum or plasma urea nitroge n measurement (mass/volume)Ordered By: Ken Ortiz on 10-04-2021 Urea nitrogen [Mass/Vol] 13 mg/dL 9 [facility] Serum tissue transglutaminas e (tTG) IgA antibody assay (units/volume)Ordered By: Ken Ortiz on 10-04-2021 tTG IgA Qn (S) <2 U/mL 0-3 [facility] Comment on above: Negative 0 - 3 Weak Positive 4 - 10 Positive >10 Tissue Transglutaminase (tTG) has been identified as the endomysial antigen. Studies have demonstr- ated that endomysial IgA antibodies have over 99% specificity for gluten sensitive enteropathy. Serum tissue transglutaminas e (tTG) IgG antibody assay (units/volume)Ordered By: Ken Ortiz on 10-04-2021 tTG IgG Qn (S) <2 U/mL 0-5 [facility] Comment on above: Negative 0 - 5 Weak Positive 6 - 9 Positive >9 Vital Signs Date Time Vital Sign Value Performing Clinician Facility 07-31-2023 08:37-0400 Body height 152.4 cm [facility] 07-31-2023 08:37-0400 Body mass index (BMI) [Ratio] 27.3 kg/m2 [facility] 07-31-2023 08:37-0400 Body weight 63.5 kg [facility] 07-31-2023 08:37-0400 Diastolic blood pressure 77 mm[Hg] [facility] 07-31-2023 08:37-0400 Heart rate 71 /min [facility] 07-31-2023 08:37-0400 SaO2% (BldA) [Mass fraction] 99 % [facility] 07-31-2023 08:37-0400 Systolic blood pressure 136 mm[Hg] [facility] 07-11-2023 10:22-0400 Body height 152.4 cm [facility] 07-11-2023 10:22-0400 Body mass index (BMI) [Ratio] 28.2 kg/m2 [facility] 07-11-2023 10:22-0400 Body weight 65.48 kg [facility] 07-11-2023 10:22-0400 Diastolic blood pressure 81 mm[Hg] [facility] 07-11-2023 10:22-0400 Heart rate 67 /min [facility] 07-11-2023 10:22-0400 Systolic blood pressure 146 mm[Hg] [facility] 05-08-2023 14:36-0500 Body height 152.4 cm Paul Visci DO Work Phone: [facility] 05-08-2023 14:36-0500 Body mass index (BMI) [Ratio] 28.32 kg/m2 Paul Visci DO Work Phone: [facility] 05-08-2023 14:36-0500 Body weight 65.77 kg Paul Visci DO Work Phone: [facility] 05-08-2023 14:36-0500 Diastolic blood pressure 84 mm[Hg] Paul Visci DO Work Phone: [facility] 05-08-2023 14:36-0500 Systolic blood pressure 124 mm[Hg] Paul Visci DO Work Phone: [facility] 04-24-2023 10:05-0500 Body mass index (BMI) [Ratio] 28.55 kg/m2 Alice Luna-Billings DO Work Phone: [facility] 04-24-2023 10:05-0500 Body weight 66.32 kg Alice Luna-Billings DO Work Phone: [facility] 04-24-2023 10:05-0500 Diastolic blood pressure 64 mm[Hg] Alice Luna-Billings DO Work Phone: [facility] 04-24-2023 10:05-0500 Heart rate 64 /min Alice Luna-Billings DO Work Phone: [facility] 04-24-2023 10:05-0500 SaO2% (BldA) [Mass fraction] 98 % Alice Luna-Billings DO Work Phone: [facility] 04-24-2023 10:05-0500 Systolic blood pressure 112 mm[Hg] Alice Luna-Billings DO Work Phone: [facility] 12-09-2022 10:00-0400 Body height 152.4 cm Gaeb Gonzalez Other [facility] Other 12-09-2022 10:00-0400 Body mass index (BMI) [Ratio] 32.22 kg/m2 Gabe Gonzalez Other [facility] Other 12-09-2022 10:00-0400 Body weight 74.84 kg Gabe Gonzalez Other [facility] Other 12-09-2022 10:00-0400 Diastolic blood pressure 81 mm[Hg] Gabe Gonzalez Other [facility] Other 12-09-2022 10:00-0400 Systolic blood pressure 129 mm[Hg] Gabe Gonzalez Other [facility] Other 09-03-2022 13:50-0400 Diastolic blood pressure 79 mm[Hg] DO Alice Luna-Billings Work Phone: [facility] 09-03-2022 13:50-0400 Heart rate 56 /min DO Alice Luna-Billings Work Phone: [facility] 09-03-2022 13:50-0400 SaO2% (BldA) [Mass fraction] 100 % DO Alice Luna-Billings Work Phone: [facility] 06-13-2023 13:50-0400 Systolic blood pressure 125 mm[Hg] DO Alice Luna-Billings Work Phone: [facility] 09-03-2022 12:25-0400 Body height 152.4 cm DO Alice Luna-Billings Work Phone: [facility] 09-03-2022 12:25-0400 Body temperature 97.9 [degF] DO Alice Luna-Billings Work Phone: [facility] 09-03-2022 12:25-0400 Body weight 72.12 kg DO Alice Luna-Billings Work Phone: [facility] 09-03-2022 12:25-0400 Respiratory rate 16 /min DO Alice Luna-Billings Work Phone: [facility] 05-02-2022 20:00-0500 Diastolic blood pressure 86 mm[Hg] DO Alice Luna-Billings Work Phone: [facility] 05-02-2022 20:00-0500 Heart rate 66 /min DO Alice Luna-Billings Work Phone: [facility] 05-02-2022 20:00-0500 Respiratory rate 20 /min DO Alice Luna-Billings Work Phone: [facility] 05-02-2022 20:00-0500 SaO2% (BldA) [Mass fraction] 99 % DO Alice Luna-Billings Work Phone: [facility] 05-02-2022 20:00-0500 Systolic blood pressure 137 mm[Hg] DO Alice Luna-Billings Work Phone: [facility] 05-02-2022 16:29-0500 Body height 152.4 cm DO Alice Luna-Billings Work Phone: [facility] 05-02-2022 16:29-0500 Body temperature 97.5 [degF] DO Alice Luna-Billings Work Phone: [facility] 05-02-2022 16:29-0500 Body weight 72.12 kg DO Alice Luna-Billings Work Phone: [facility] 11-09-2021 13:34-0400 Body height 152.4 cm DO Alice Luna-Billings Work Phone: [facility] 11-09-2021 13:34-0400 Body temperature 98 [degF] DO Alice Luna-Billings Work Phone: [facility] 11-09-2021 13:34-0400 Body weight 71 kg DO Alice Luna-Billings Work Phone: [facility] 11-09-2021 13:34-0400 Diastolic blood pressure 80 mm[Hg] DO Alice Luna-Billings Work Phone: [facility] 11-09-2021 13:34-0400 Heart rate 78 /min DO Alice Luna-Billings Work Phone: [facility] 11-09-2021 13:34-0400 Respiratory rate 18 /min DO Alice Luna-Billings Work Phone: [facility] 11-09-2021 13:34-0400 SaO2% (BldA) [Mass fraction] 97 % DO Alice Luna-Billings Work Phone: [facility] 11-09-2021 13:34-0400 Systolic blood pressure 187 mm[Hg] DO Alice Luna-Billings Work Phone: [facility] 12-20-2020 14:15-0400 Body height 152.4 cm Ken Ortiz Other [facility] Other 12-20-2020 14:15-0400 Body mass index (BMI) [Ratio] 31.05 kg/m2 Ken Ortiz Other [facility] Other 12-20-2020 14:15-0400 Body weight 72.12 kg Ken Ortiz Other [facility] Other Encounters Encounter Date Encounter Type Care Provider Facility Start: 08-27-2023 End: 08-27-2023 Patient encounter procedure DO Alice Luna-Billings Work Phone: [facility] Work Phone: Start: 08-27-2023 End: 08-27-2023 ambulatory DO Alice Luna-Billings Work Phone: [facility] Work Phone: Start: 07-31-2023 End: 07-31-[address] [facility] Work Phone: Start: 07-31-2023 End: 07-31-2023 Patient encounter procedure [facility] Work Phone: Start: 07-16-2023 End: 07-16-2023 ambulatory PAUL A VISCI Not Available Start: 07-11-2023 End: 07-11-[address] [facility] Work Phone: Start: 07-11-2023 End: 07-11-2023 Patient encounter procedure [facility] Work Phone: Start: 06-09-2023 End: 06-10-2023 [...] encounter status Alice Polo DO Work Phone: [facility] Work Phone: Start: 04-24-2023 End: 04-24-2023 Periodic preventive med est patient 40-64yrs Alice Polo DO Work Phone: [facility] Comment on above: Encounter for preven [...] 12-09-2022 End: 12-09-2022 ambulatory Gabe Gonzalez Other [facility] Other Start: 12-09-2022 Office outpatient visit 15 minutes Gabe Gonzalez [facility] Gastroenterology Start: 09-26-2022 End: 09-26-2022 Patient encounter procedure DO Alice Polo Work Phone: [facility] Work Phone: Start: 09-26-2022 End: 09-26-2022 ambulatory DO Alice Polo Work Phone: [facility] Work Phone: Start: 09-04-2022 End: 09-04-2022 ambulatory Edison Monroe Other [facility] Other Start: 09-04-2022 Telephone encounter Edison HAHN [facility] Start: 09-03-2022 End: 09-03-2022 Admission to same day surgery center DO Alice Luna-Billings Work Phone: [facility] Work Phone: Start: 08-29-2022 ambulatory ALICE KUHNABID CURTISMaci Fac ility:H1 Start: 06-12-2022 End: 06-12-2022 ambulatory DO Alice Luna-Billings Work Phone: [facility] Work Phone: Start: 06-12-2022 End: 06-12-2022 Patient encounter procedure DO Alice Luna-Billings Work Phone: [facility] Work Phone: Start: 05-30-2022 End: 05-31-2022 ambulatory ALICE FERRER Facility: Start: 05-21-[address] Alice Polo Facility:[facility] Start: 05-14-2022 End: 05-14-2022 ambulatory ALICE FERRER Facility: Start: 05-10-[address] Alice Polo Facility:[id number] Start: 05-07-2022 End: 05-07-2022 ambulatory DO Alice Luna-Billings Work Phone: [facility] Work Phone: Start: 05-07-2022 End: 05-07-2022 Patient encounter procedure DO Alice Luna-Billings Work Phone: [facility]Electro[facility] Work Phone: Start: 05-02-2022 End: 05-02-2022 Emergency department patient visit DO Alice Luna-Billings Work Phone: [facility]Emer[facility] Work Phone: Start: 05-02-2022 End: 05-03-2022 ambulatory ALICE LUNA EMERY Facility:[facility]1 Start: 04-16-2022 End: 04-16-2022 ambulatory ALICE JEREMY CURTISY Facility:[facility]1 Start: 02-07-2022 End: 02-08-2022 ambulatory ALICE JEREMY CURTISY Facility:[facility]1 Start: 11-15-2021 End: 11-16-2021 ambulatory JONITRICIA MAHMOOD . Facility:[facility]1 Start: 11-09-2021 End: 11-09-2021 Emergency department patient visit DO Alice Polo Work Phone: [facility] Start: 10-16-2021 End: 10-16-[address] ARNAV COREA . Facility:[facility]1 Start: 10-11-2021 End: 10-11-2021 ambulatory Ken Ortiz Other [facility] Other Start: 10-11-2021 Telephone encounter Ken LOJA [facility] Start: 10-04-2021 End: 10-04-2021 Patient encounter procedure DO Alice Polo Work Phone: [facility] [place] Start: 10-03-2021 End: 10-03-2021 ambulatory Ken Ortiz Other [facility] Other Start: 10-03-2021 Telephone encounter Ken Ortiz [facility] Start: 09-20-2021 End: 09-21-2021 ambulatory JONI MAHMOOD . Facility:[facility]1 Start: 02-26-2021 End: 02-26-2021 ambulatory Ken Ortiz Other [facility] Other Start: 02-26-2021 Telephone encounter Ken Ortiz [facility] Start: 12-20-2020 Office outpatient visit 25 minutes Ken Ortiz [facility] Procedures Date Procedure Procedure Detail Performing Clinician Start: 12-23-2022 Mammography Alice Luna-Billings DO Work Phone: Start: 09-03-2022 Esophagogastroduodenoscopy DO Alice Luna-Nabil Work Phone: Start: 05-02-2022 Plain chest X-ray DO Alice Polo Work Phone: Start: 11-09-2021 CT of facial bones without contrast DO Tanya Polo Work Phone: Start: 12-29-2020 Colonoscopy Alice Polo DO Work Phone: Plan of Treatment Date Care Activity Detail Author Start: 12-29-2030 Screening for malignant neoplasm of colon [facility] Start: 04-27-2024 End: 04-27-2024 Patient encounter procedure 04/27/2024 10:00 AM EST Office Visit [facility] [address] [place] [id number] Alice Polo, DO [address] [place] [address] [facility] Start: 12-24-2023 Screening for malignant neoplasm of breast Mammogram [facility] Start: 04-28-2023 End: 04-28-2023 Patient encounter procedure 04/28/2023 9:30 AM EST Office Visit [facility] [address] [place] [phone] Paul Mcgrath, DO [address] [place] [address] BMI 29.0-29.9,adult [facility] Comment on above: BMI 29.0-29.9,adult Start: 09-03-2022 [facility] Start: 1960 Screening for malignant neoplasm of colon [facility] Patient Education [facility] Work Phone: Patient referral [facility] Work Phone: Immunizations Immunization Date Immunization Notes Care Provider Fa cility 12-25-2022 RSV, recombinant, protein subunit RSVpreF, adjuvant reconstitu, 120mcg/0.5mL, PF (Arexvy) Alice Luna-Billings DO Work Phone: [facility] 05-28-2021 zoster vaccine recombinant Alice Jeremy-Billings DO Work Phone: [facility] 02-07-2021 zoster vaccine recombinant Alice Luna-Billings DO Work Phone: [facility] 06-29-2020 COVID-19 mRNA, Comirnaty (Pfizer) DO Alice Jeremy-Billings Work Phone: [facility] 06-09-2020 COVID-19 mRNA, Comirnaty (Pfizer) DO Alice Luna-Billings Work Phone: [facility] 06-29-2015 tetanus toxoid, redu yoselin diphtheria toxoid, and acellular pertussis vaccine, adsorbed Alice Jeremy-Billings DO Work Phone: [facility] Healthcare Payers Date Payer Category Payer Self-pay [id number] 2020 Medicaid [employer] [place] [id number] 2020-Present [address] [place] [address] [id number]. [id number] 1962 Unknown [id number] 2.16.840.1.272648.3.579.2. 356 1962 Unknown [id number] 2.16.840.1.115509.3.579.2. 593 1962 Unknown [id number] 2.16.840.1.754063.3.579.2. 593 1962 Unknown [id number] 2.16.840.1.009722.3.579.2. 593 1962 Unknown [id number] 2.16.840.1.756100.3.579.2. 593 1962 Unknown [id number] 2.16.840.1.777530.3.579.2. 593 1962 Unknown [id number] 2.16.840.1.761566.3.579.2. 593 1962 Unknown [id number] 2.16.840.1.906421.3.579.2. 593 1962 Unknown [id number] 2.16.840.1.902752.3.579.2. 593 1962 Unknown [id number] 2.16.840.1.373104.3.579.2. 593 1962 Unknown [id number] 2.16.840.1.219620.3.579.2. 593 1962 Unknown [id number] 2.16.840.1.739081.3.579.2. 593 1962 Unknown [id number] 2.16.840.1.876999.3.579.2. 125 1962 Unknown [id number] 2.16.840.1.700610.3.579.2. 1259 1962 Unknown [id number] 2.16.840.1.270996.3.579.2. 1259 1962 Unknown [id number] 2.16.840.1.690008.3.579.2. 125 1962 Unknown [id number] 2.16.840.1.383011.3.579.2. 1259 1962 Unknown [id number] 2.16.840.1.214026.3.579.2. 1259 1962 Unknown [id number] 2.16.840.1.769060.3.579.2. 125 1962 Unknown [id number] 2.16.840.1.638455.3.579.2. 1259 1962 Unknown [id number] 2.16.840.1.612957.3.579.2. 1259 1959 Medicaid [id number] 1959 Unknown [id number] 2.16.840.1.461359.19 Private Health Insurance [id number] Unknown [place] BC/BS [id number] Unknown HCAP/HFA/FAP Active [id number] Unknown [id number] 2.16.840.1.596416.3.579.2. 531 Unknown [id number] 2.16.840.1.282792.3.579.2. 531 Social History Date Type Detail Facility Start: 04-24-2023 End: 05-05-2023 Sex Assigned At [facility] Work Phone: Start: 11-09-2021 Tobacco smoking stat us RUST Never smoked tobacco (finding) [facility] Start: 1960 Sex Assigned At Female F [facility] Start: 05-02-2022 End: 09-03-2022 Tobacco smoking status RUST Ex-smoker (finding) [facility] End: 03-24-2012 History of tobacco use Current smoker [facility] End: 03-24-2012 History of tobacco use Cigarette Smoker [facility] Start: 01-08-2023 Tobacco use and exposure Smokeless tobacco non-user [facility] Start: 04-27-2023 End: 05-05-2023 Alcohol intake [...] Dates Tendon repair Tendon/ligament bone anchor, non-bioabsorbable ([id number] [facility] Start: 12-10-2018 Goals Date Patient Goal Desired Activity /State Clinical Notes 12-20-2020 to 05-08-2023 Paul Mcgrath, DO - 05/08/2023 2:30 PM ESTSlove Polo, DO - 04/27/2023 6:53 PM ESTSandra Keven Polo, DO - 04/27/2023 6:52 PM ESTSandra [...] per pt. COLONOSCOPY 12/29/2020 Normal EGD 10/31/2015 EGD/[place] done by Dr. Ortiz (stenosis of upper [...] TUBAL LIGATION Dr. Ba WISDOM TOOTH EXTRACTION 1980 [place] teeth impacted Family History Problem Relation Name Age of Onset Depression Mother Michela Garrett,Ken Tami(father), Ronni Garrett (b Hyperthyroidism Mother Michela Garrett,Ken Garrett(father), Ronni Garrett (b Osteoporosis Mother Michela Garrett,Ken Garrett(father), Ronni Garrett (b Osteoarthritis Mother Michela Garrett,Ken Garrett(father), Ronni Garrett (b Stroke Mother Michela Garrett,Ken Garrett(father), Ronni Garrett (b Alcohol abuse Father KEN TAMI Other (brain tumor) Father KEN GARRETT benign brain tumor with shunt due to hydrocephalus Asthma Father KEN GARRETT Heart failure Brother Ronni Garrett CHF Coronary artery disease Brother Ronni Garrett 48 Atrial fibrillation Brother Ronni Garrett 48 Depression Brother Ronni Garrett Severe Depression Heart attack Paternal Grandfather Acute [place] No Known Problems Daughter Healthy Ulcerative colitis [...] yeast vaginitis-Rx diflucan. documented in this encounter [facility] 04-27-2023 History of Presen t illness Narrative [...] List Diagnosis Class 1 obesity Exercise-induced asthma ([facility]) Arthritis, lumbar spine Gastroesophageal reflux disease without esophagitis Postmenopausal Depression, major, in remission (HCC) ([facility]) Hormone replacement therapy Review of Systems Constitutional: [...] . Postmenopausal Depression, major, in remission (HCC) ([facility]/HCC) Overview Prescribed citalopram Current Assessment & Plan -Pt is doing well at this time on current dose of celexa. Based on review of patient's medications and current medical status; continuation of medications most appropriate. Compliance with medications and/or management recommendations encouraged. Monitor Hormone replacement therapy Overview Prescribed estradiol 0.5 mg daily by [employer]/Dr Mcgrath Other Visit Diagnoses Encounter for preventative [...] Annual Physical. 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 SHE REPORTS MAYBE ONCE A WEEK WITH A FLARE OF SYMPTOMS. PATIENT CAN USE PEPCID OTC OR TUMS. [facility] Other 03-09-2023 NoteCONSULTATION CONSULTATION DATE: 05/30/2022 HISTORY [...] for re-evaluation. Patient agrees with this plan.[facility] [id number] NotePROCEDURE: XR HIP LT 2 3V WO PELVIS HISTORY: Pain of left hip joint , chronic COMPARISON: None. FINDINGS: BONES:Small degenerative osteophyte along superior rim of acetabulum. No fracture, dislocation, or significant joint space narrowing. SOFT TISSUES:No visible soft tissue swelling. EFFUSION:None visible. OTHER: Negative. IMPRESSION: 1. No acute bone abnormality. 2. Mild degenerative joint disease. Electronically authenticated by: GENESISCARLOS MANUEL BELLO Date: 2022-05-02 14:36[facility]02-09-2023 NoteCONSULTATION CONSULTATION DATE: 05/02/2022 HISTORY OF [...] completed 10 treatments of physical therapy in [place]. The patient does state, at the end [...] followed up in the office post procedure.[facility] [id number] NoteCONSULTATION CONSULTATION DATE: 02/07/2022 HISTORY OF PRESENT [...] review her thoracic x-ray at that time.[facility] [id number] NoteCONSULTATION CONSULTATION DATE: 11/15/2021 This is a [...] indicated. The patient does agree to this.[facility] [id number] Evaluation note* Encounter Date Diagnosis Assessment Notes Treatment Notes Treatment Clinical Notes Sep, Irritable bowel syndrome with both constipation and diarrhea (ICD-10 - K58.2) Sep, GERD (gastroesophageal reflux disease) (ICD-10 - K21.9) Sep, Bloating (ICD-10 - R14.0) [facility] Other 06-30-2022 NoteCONSULTATION CONSULTATION DATE: 09/20/2021 This [...] She has been missing days at the crisis clinician recently due to her pain. She describes [...] be followed up it the clinic post-procedure. [facility] Signed and Approved by: JONI MAHMOOD . 09/27/2021 16:26:00[facility]12-06-2021 Evaluation note* Encounter Date Diagnosis Assessment Notes Treatment Notes Treatment Clinical Notes Feb, GERD (gastroesophageal reflux disease) (ICD-10 - K21.9) [facility] Other 09-29-2021 Evaluation note* Encounter Date Diagnosis Assessment Notes Treatment Notes Treatment Clinical Notes Nov, GERD (gastroesophage al reflux disease) (ICD-10 - K21.9) GERD home care material was printed EGD START CARAFATE 1 GRAM TID Nov, Irritable bowel synd john with both constipation and diarrhea (ICD-10 - K58.2) Nov, Pharyngoesophageal dysphagia (ICD-10 - R13.14) [facility] Other Evaluation noteNo InformationNort Keypr Other Evaluthyfg noteNo assessment information available [facility] Work Phone: Evaluation note* Diagnosis Encounter for preventative adult health care examination- Primary Arthritis, lumbar spine Depression, major, in remission (HCC) ([facility]/HCC) Gastroesophageal reflux disease without esophagitis Esophageal reflux Postmenopausal Asymptomatic postmenopausal status (age-related) (natural) Hormone replacement therapy Class 1 obesity BMI 29.0-29.9,adult documented in this encounter [facility] HealthcareEvaluation note* Diagnosis Body mass index (BMI) 28.0-28.9, adult Abnormal weight gain Yeast infection BMI 29.0-29.9,adult documented in this encounter [facility] HealthcareEvaluation note* Diagnosis Onset Date Resolution Status GERD (gastroesophageal reflux disease) acute [facility] Work Phone: Evaluation note* Diagnosis Onset Date Resolution Status GERD (gastroesophageal reflux disease) acute BMI 27.0-27.9,adult acute Chronic intermittent hypoxia with obstructive sleep apnea acute GERD (gastroesophageal reflux disease) acute Intolerance to BiPAP/CPAP ac maura Obstructive sleep apnea acut e [facility] Work Phone: History general Narrative - Reported* Type Description Date Medical History Gastroesophageal Reflux Disease Medical History Anxiety/Depression Medical History seasonal asthma Surgical History Caesarean Section X 3 Surgical History Tonsillectomy/Adenoidectomy Surgical History Laparoscopy Surgical History Hysteroscopy/Endometrial Ablati on Surgical History Laparoscopy Cholecystectomy Surgical History [facility] tenton interposition Arthro plasty 2019 Hospitalization History See Above [facility] Other Hisekrp general Narrative - ReportedNort Keypr Other Hisqmxh general Narrative - Reported* Type Description Date [...] History ablasion-LUMBAR NERVE Hospitalization History See Above [facility] Other Hospital Discharge instructions Additional Instructions Follow up with your primary care doctor Return to the ED If you develop worsening symptoms [facility] Work Phone: Chief Complaint and Reason [...] Active Edison Monroe MD Attending Provider Active 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 dical Specialist DATE CREATED AUTHOR AUTHOR'S ORGANIZ ATION 05/25/2022 [facility] DATE CREATED AUTHOR AUTHOR'S ORGANIZ ATION 06/05/2022 [facility] DATE CREATED AUTHOR AUTHOR'S ORGANIZ ATION 07/17/[address] [facility] DATE CREATED AUTHOR AUTHOR'S ORGANIZ ATION 09/05/2023 [facility] FOR RECORDS PERTAINING TO PATIENTS WHO [...] BE BASED ON THE PRIMARY CLINICAL RECORDS. [facility] provides no warranty or guarantee of the accuracy or completeness of information in this document.
== END 2023-09-11 07:59 | disposition home or self-care (01) ==
LOC: PM 07:58
PROVIDERS: PCP Internal Medicine; Visit Provider Nurse Practitioner
DX: M48.062 Spinal stenosis, lumbar region with neurogenic claudication (principal); M47.816 Spondylosis without myelopathy or radiculopathy, lumbar region; M62.838 Other muscle spasm; M47.812 Spondylosis without myelopathy or radiculopathy, cervical region; M48.02 Spinal stenosis, cervical region; M54.16 Radiculopathy, lumbar region; M54.2 Cervicalgia
CPT/HCPCS: G0463

== ENCOUNTER 2023-10-07 07:44 | Day surgery (SDC) | payer OTHER, SELFPAY ==
--- OUTSIDE RECORDS SUMMARY | 2023-10-07 07:52 | XMS_ITS | CCD ---
Author Organization [facility] Care Team Providers Care Comber Fixer Name Role Phone Ken Ortiz Unavailable DO Alice Polo Primary Care Provider DO Ken Ortiz Attending Provider TOMMIE Heller Emergency Provider [phone] DO Alice Polo Primary Care Provider DO Oswaldo Deleon Emergency Provider [phone] DO Alice Polo Attending Provider Dr. Alice Polo Primary Care [facility] Dr. Alice Polo Primary Care [facility] JEREMY FERRER ALICE Primary Care Unavailable COREA ., DR ARNAV Martínez Attending Unavailable COREA ., DR ARNAV Martínez Admitting Unavailable COREA ., DR ARNAV Martínez Consulting Unavailable [facility] Primary Care Unavailable MAHMOOD .JONI Consulting Unavailable COREA ., DR ARNAV Martínez Attending Unavailable COREA ., DR ARNAV Martínez Admitting Unavailable [facility] Primary Care Unavailable MAHMOOD ., JONI Consulting Unavailable COREA ., DR ARNAV Martínez Attending Unavailable COREA ., DR ARNAV Martínez Admitting Unavailable [facility] Primary Care Unavailable LAKSHMIPATHY ., NARENDRANATH Admitting [place] v[place] ., NARENDRANATH Attending [place] v[place] [facility] Primary Care Unavailable COREA ., DR ARNAV Martínez Consulting Unavailable COREA ., DR ARNAV Martínez Attending Unavailable COREA ., DR ARNAV Martínez Admitting Unavailable COREA ., DR ARNAV Martínez Attending Unavailable COREA ., DR ARNAV Martínez Admitting Unavailable MISC, DR SCHMIDT Consulting Unavailable [facility] Primary Care Unavailable MAHMOOD ., JONI Consulting Unavailable MAHMOOD ., JONI Consulting Unavailable COREA ., DR ARNAV Martínez Attending Unavailable COREA ., DR ARNAV Martínez Admitting Unavailable [facility] Primary Care Unavailable COREA ., DR ARNAV Martínez Consulting Unavailable COREA ., DR ARNAV Martínez Attending Unavailable COREA ., DR ARNAV Martínez Admitting Unavailable [facility] Primary Care Unavailable ROLAN CRISOSTOMO Consulting Unavailable [facility] Primary Care Unavailable MAHMOOD ., JONI Attending Unavailable MAHMOOD ., JONI Admitting Unavailable ZIEBER, DR GENESIS Mo Consulting Unavailable MAHMOOD ., JONI Consulting Unavailable [facility], ALICE Primary Care Unavailable MAHMOOD ., JONI Attending Unavailable MAHMOOD ., JONI Admitting Unavailable ZIEBER, DR GENESIS Mo Consulting Unavailable MAHMOOD ., JONI Consulting Unavailable MAHMOOD ., JONI Consulting Unavailable COREA ., DR ARNAV Martínez Attending Unavailable COREA ., DR ARNAV Martínez Admitting [facility] Primary Care Unavailable DO Melani Alice Primary Care Provider DO Oswaldo Deleon Emergency Provider DO Alice Polo Attending Provider [phone] DO Alice Polo Referring Provider MD Ken Mendez Attending Provider Edison Monroe Unavailable DO Alice Polo Primary Care Provider MD Edison Monroe Attending Provider CRISTEL Perez Attending Provider Gabe Gonzalez Unavailable Alice Polo DO Primary Care Provider Melani, Alice Primary Care Provider MD Ken Mendez Attending Provider LunaJavier Alice Primary Care Unavailable Ken Mendez Attending Unavailable Ken Mendez Admitting Unavailable Alix Perez Admitting Unavailable [facility], Alice Primary Care Unavailable Alix Perez Attending Unavailable PAUL MCGRATH Attending Unavailable ALCIDES, PAUL Thakur Attending Unavailable ALICE POLO Attending Unavailab le VISCI, PAUL Thakur Attending Unavailable PAUL MCGRATH Attending Unavailable ALICE POLO Referring Unavailab RAQUEL Farrell Attending Unavailable DIDRAQUEL GA Referring Unavailable PAUL MCGRATH Attending Unavailable ALICE POLO Referring Unavailab le DIDIONRAQUEL Attending Unavailable PAUL MCGRATH Attending Unavailable Allergies Allergy Classification Reported Allergen(s) Allergy Type Date of Onset Reaction(s) Facility (1 source) Sulfonamides (Antibiotic) Drug allergy (disorder) [facility] (2 sources) Sulfonamides (Antibiotic); Translations: [Sulfa (Sulfonamide Antibiotics)] Allergy to substance 3 [facility] (3 sources) Sulfonamides (Antibiotic) Drug Allergy [...] 11, 2023 12:00am take 1 capsule by [facility] every twenty-four hours as needed CeleBREX 200 [...] 05/08/2023 06/07/2023 Active take 1 capsule by [facility] every twenty-four hours Adipex-P 37.5 MG [...] every four to six hours Hydrocodone-Acetami nophen ([place]) 5-325 mg tablet Discontinued 1 - 2 TAB PO EVERY 4-6 HOURS 50 7 December 10, 2018 December 10, 2018 10:44am Start: 12-10-2018 End: 12-10-2018 take 1 tablet by mouth every four to six hours Hydrocodone-Acetaminophen ([place]) 5-325 mg tablet Discontinued 1 - 2 TAB PO EVERY 4-6 HOURS 50 7 December 10, 2018 December 10, 2018 10:44am Start: 12-10-2018 End: 12-10-2018 take 1 tablet by mouth every four to six hours Hydrocodone-Acetaminophen ([place]) 5-325 mg tablet Discontinued 1 - 2 TAB PO EVERY 4-6 HOURS 50 7 December 10, 2018 December 10, 2018 10:44am Start: 12-10-2018 End: 12-10-2018 take 1 tablet by mouth every four to six hours Hydrocodone-Acetaminophen ([place]) 5-325 mg tablet Discontinued 1 - 2 TAB PO EVERY 4-6 HOURS 50 7 December 10, 2018 December 10, 2018 10:44am Start: 12-10-2018 End: 12-10-2018 take 1 tablet by mouth every four to six hours Hydrocodone-Acetaminophen ([place]) 5-325 mg tablet Discontinued 1 - 2 TAB PO EVERY 4-6 HOURS 50 7 December 10, 2018 December 10, 2018 10:44am Start: 12-10-2018 End: 12-10-2018 take 1 tablet by mouth every four to six hours Hydrocodone-Acetaminophen ([place]) 5-325 mg tablet Discontinued 1 - 2 TAB PO EVERY 4-6 HOURS 50 December 10, 2018 December 10, 2018 9:44am Start: 12-10-2018 End: 12-10-2018 take 1 tablet by mouth every four to six hours Hydrocodone-Acetaminophen ([place]) 5-325 mg tablet Discontinued 1 - 2 TAB PO EVERY 4-6 HOURS 50 December 10, 2018 December 10, 2018 9:44am Start: 12-10-2018 End: 12-10-2018 take 1 tablet by mouth every four to six hours Hydrocodone-Acetaminophen ([place]) 5-325 mg tablet Discontinued 1 - 2 TAB PO EVERY 4-6 HOURS 50 December 10, 2018 December 10, 2018 10:44am Start: 04-27-2018 End: 12-10-2018 take 1 tablet by mouth every four to six hours Hydrocodone-Acetaminophen ([place]) 5-325 mg tablet Discontinued 1 - 2 [...] aPTT Coag (PPP) [Time] 30.0 s 25.1-36.5 [facility] Basophils Auto (Bld) [#/Vol] Ordered By: Oswaldo Deleon on 05-02-2022 Basophils (Bld) [#/Vol] 0.0 10*3/uL 0.0-0.[address] [facility] Basophils/100 WBC Auto (Bld) Ordered By: Oswaldo Deleon on 05-02-2022 Basophils/100 WBC (Bld) 0.7 % . [facility] Body fluid albumin measureme nt (mass/volume)Ordered By: Oswaldo Deleon on 05-02-2022 Albumin (Body fld) [Mass/Vol] 4.0 g/dL 3.2-5.[address] [facility] Creatine kinase [Enzymatic a ctivity/volume] in Serum or PlasmaOrdered By: Oswaldo Deleon on 05-02-2022 CK [Catalytic activity/Vol] 50 U/L 22-[address] [facility] Creatinine and Glomerular fi ltration rate.predicted panel (S/P/Bld)Ordered By: Oswaldo Deleon on 05-02-2022 Creatinine [Mass/Vol] 0.79 mg/dL 0.44-1.03 [facility] Eosinophils Auto (Bld) [#/Vo l]Ordered By: Oswaldo Deleon on 05-02-2022 Eosinophils (Bld) [#/Vol] 0.4 10*3/uL 0.0-0.[address] [facility] Eosinophils/100 WBC Auto (Bl d)Ordered By: Oswaldo Deleon on 05-02-2022 Eosinophils/100 WBC (Bld) 4.9 % . [facility] Erythrocyte distribution wid th Auto (RBC) [Ratio]Ordered By: Oswaldo Deleon on 05-02-2022 Erythrocyte distribution width (RBC) [Ratio] 13.0 % 11.9-15.[address] [facility] Estimated glomerular filtrat ion rate (GFR) non- AmericanOrdered By: Oswaldo Deleon on 05-02-2022 GFR/1.73 sq M.predicted among non-blacks MDRD (S/P/Bld) [Vol rate/Area] > 60 mL/Min [facility] Globulin Calc (S) [Mass/Vol] Ordered By: Oswaldo Deleon on 05-02-2022 Globulin (S) [Mass/Vol] 2.9 g/dL [facility] Hematocrit Auto (Bld) [Volum e fraction]Ordered By: Oswaldo Deleon on 05-02-2022 Hematocrit (Bld) [Volume fraction] 43.7 % 34.0-46.[address] [facility] Hemoglobin [Mass/volume] in BloodOrdered By: Oswaldo Deleon on 05-02-2022 Hemoglobin (Bld) [Mass/Vol] 14.7 g/dL 11.8-15.[address] [facility] Laboratory - Chemistry and C hemistry - challengeOrdered By: Oswaldo Deleon on 05-02-2022 Magnesium [Mass/Vol] 2.0 mg/dL 1.6-2.6 [facility] - CoagulationOrde red By: Oswaldo Deleon on 05-02-2022 PT Coag (PPP) [Time] 11.6 s 9.0-12.9 [facility] Leukocytes [#/volume] correc nikhil for nucleated erythrocytes in Blood by Automated counOrdered By: Oswaldo Deleon on 05-02-2022 WBC corrected for nucl RBC Auto (Bld) [#/Vol] 7.4 10*3/uL 3.8-11.[address] [facility] Lymphocytes Auto (Bld) [#/Vo l]Ordered By: Oswaldo Deleon on 05-02-2022 Lymphocytes (Bld) [#/Vol] 1.6 10*3/uL 1.00-4.[address] [facility] Lymphocytes/100 WBC Auto (Bl d)Ordered By: Oswaldo Deleon on 05-02-2022 Lymphocytes/100 WBC (Bld) 22.0 % . [facility] MCH Auto (RBC) [Entitic mass ]Ordered By: Oswaldo Deleon on 05-02-2022 MCH (RBC) [Entitic mass] 30.0 pg 24.7-34.[address] [facility] MCHC Auto (RBC) [Mass/Vol]Or dered By: Oswaldo Deleon on 05-02-2022 MCHC (RBC) [Mass/Vol] 33.7 g/dL 32.0-35.0 [facility] MCV Auto (RBC) [Entitic vol] Ordered By: Oswaldo Deleon on 05-02-2022 MCV (RBC) [Entitic vol] 88.9 fL 80-[address] [facility] Monocyte distribution width [Entitic volume] in Blood by AutomatedOrdered By: Oswaldo Deleon on 05-02-2022 Monocyte distribution width Auto (Bld) [Entitic vol] 18.10 % 0.00-20.[address] [facility] Monocytes Auto (Bld) [#/Vol] Ordered By: Oswaldo Deleon on 05-02-2022 Monocytes (Bld) [#/Vol] 0.8 10*3/uL 0.0-0.[address] [facility] Monocytes/100 WBC Auto (Bld) Ordered By: Oswaldo Deleon on 05-02-2022 Monocytes/100 WBC (Bld) 10.2 % . [facility] Neutrophils Auto (Bld) [#/Vo l]Ordered By: Oswaldo Deleon on 05-02-2022 Neutrophils (Bld) [#/Vol] 4.6 10*3/uL 1.8-7.[address] [facility] Neutrophils/100 WBC Auto (Bl d)Ordered By: Oswaldo Deleon on 05-02-2022 Neutrophils/100 WBC (Bld) 62.2 % . [facility] No Panel InformationOrdered By: Oswaldo Deleon on 05-02-2022 D-Dimer Quantitative (PE/DVT) < 200 ng/mL 0-[address] [facility] Comment on above: The reference range [...] conditions. Estimated GFR () > 60 mL/Min [facility] Comment on above: GFR estimated refere nce range: According to KDOQI guidelines, <60 ml/min/1.73m2 is sufficient to diagnose a patient with chronic kidney disease. Pharmacy Creatinine Clearance (Chem 67.[address] [facility] Nucleated erythrocytes [Pres ence] in Blood by Automated countOrdered By: Oswaldo Deleon on 05-02-2022 Nucleated RBC Auto Ql (Bld) 0.1 /100{WBC} 0-0.[address] [facility] Platelet mean volume Auto (B ld) [Entitic vol]Ordered By: Oswaldo Deleon on 05-02-2022 Platelet mean volume (Bld) [Entitic vol] 8.7 fL 6.3-10.[address] [facility] Platelet poor plasma interna tional normalized ratio (INR) by coagulation assay (relatOrdered By: Oswaldo Deleon on 05-02-2022 INR Coag (PPP) [Relative time] 1.0 {INR} [facility] Comment on above: INR Therapeutic Rang [...] 05-02-2022 Platelets (Bld) [#/Vol] 271 10*3/uL 150-[address] [facility] Protein [Mass/volume] in Ser um or PlasmaOrdered By: Oswaldo Deleon on 05-02-2022 Protein [Mass/Vol] 6.9 g/dL 6.1-7.9 [facility] RBC Auto (Bld) [#/Vol]Ordere d By: Oswaldo Deleon on 05-02-2022 RBC (Bld) [#/Vol] 4.92 10*6/uL 3.60-5.00 [facility] Serum or plasma alanine reyna otransferase measurement without P-5'-P (enzymatic activiOrdered By: Oswaldo Deleon on 05-02-2022 ALT No additional P-5'-P [Catalytic activity/Vol] 21 U/L 10-[address] [facility] Serum or plasma albumin/glob ulin mass ratioOrdered By: Oswaldo Deleon on 05-02-2022 Albumin/Globulin [Mass ratio] 1.4 {ratio} [facility] Serum or plasma alkaline raphael sphatase measurement (enzymatic activity/volume)Ordered By: Oswaldo Deleon on 05-02-2022 ALP [Catalytic activity/Vol] 56 U/L 32-[address] [facility] Serum or plasma anion gap de terminationOrdered By: Oswaldo Deleon on 05-02-2022 Anion gap [Moles/Vol] 11.4 mmol/L 6.0-15.0 [facility] Serum or plasma aspartate am inotransferase measurement (enzymatic activity/volume)Ordered By: Oswaldo Deleon on 05-02-2022 AST [Catalytic activity/Vol] 20 U/L 10-[address] [facility] Serum or plasma calcium shellie urement (mass/volume)Ordered By: Oswaldo Deleon on 05-02-2022 Calcium [Mass/Vol] 9.4 mg/dL 8.2-10.2 [facility] Serum or plasma chloride isidro surement (moles/volume)Ordered By: Oswaldo Deleon on 05-02-2022 Chloride [Moles/Vol] 100 mmol/L 95-114 [facility] Serum or plasma creatine kin ase MB (CKMB)/total creatine kinase (CK) ratio by calculaOrdered By: Oswaldo Deleon on 05-02-2022 CK.MB Calc [Catalytic fraction] 1.8 % 0.00-2.[address] [facility] Serum or plasma creatine kin ase MB measurement (mass/volume)Ordered By: Oswaldo Deleon on 05-02-2022 CK.MB [Mass/Vol] 0.9 ng/mL 0.6-6.3 [facility] Serum or plasma glucose shellie urement (mass/volume)Ordered By: Oswaldo Deleon on 05-02-2022 Glucose [Mass/Vol] 87 mg/dL 70-100 [facility] Comment on above: ADA recommended refe rence rangeRandom Glucose Reference Range is dependent on time and content of last meal. Glucose of more than 200 mg/dL in a nonstressed, ambulatory subject supports the diagnosis of Diabetes Mellitus. Serum or plasma potassium me asurement (moles/volume)Ordered By: Oswaldo Deleon on 05-02-2022 Potassium [Moles/Vol] 3.9 mmol/L 3.5-5.1 [facility] Serum or plasma sodium measu rement (moles/volume)Ordered By: Oswaldo Deleon on 05-02-2022 Sodium [Moles/Vol] 135 mmol/L 136-146 [facility] Serum or plasma total biliru bin measurement (mass/volume)Ordered By: Oswaldo Deleon on 05-02-2022 Bilirubin [Mass/Vol] 0.5 mg/dL 0.3-1.2 [facility] Serum or plasma total carbon dioxide measurement (moles/volume)Ordered By: Oswaldo Deleon on 05-02-2022 CO2 [Moles/Vol] 27.5 mmol/L 22.0-30.0 [facility] Serum or plasma urea nitroge n measurement (mass/volume)Ordered By: Oswaldo Deleon on 05-02-2022 Urea nitrogen [Mass/Vol] 21 mg/dL 9-[address] [facility] Troponin I.cardiac [Mass/vol ume] in Serum or Plasma by High sensitivity methodOrdered By: Oswaldo Deleon on 05-02-2022 Troponin I.cardiac High sensitivity method [Mass/Vol] 3 pg/mL 0-[address] [facility] WBC Auto (Bld) [#/Vol]Ordere d By: Oswaldo Deleon on 05-02-2022 WBC (Bld) [#/Vol] 7.4 10*3/uL 3.8-11.6 [facility] XR TSPINE MIN 4 VIEWSon 01-22 [...] GENESIS BELLO Date: 2022-02-07 15:12 Normal [facility] SCREENING MAMMOGRAM W/NUPUR, BILATERAL*on 12-06-2021 SCREENING [...] VERY IMPORTANT TO YOUR HEALTH. THE CURRENT [employer] AND [employer]WORK GUIDELINES RECOMMENDS ANNUAL MAMMOGRAPHY BEGINNING AT AGE 40 THIS FACILITY USES A REMINDER SYSTEM TO ENSURE ALL PATIENTS RECEIVE REMINDER NOTIFICATIONS AT THE APPROPRIATE TIME BASED ON THE RECOMMENDATIONS OF THIS EXAM. 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 Accredited by the ACR and FDA. Report reported and signed by Paulino Will on 12/06/2021 1003 Normal [facility] [employer] Basophils Auto (Bld) [#/Vol] Ordered By: Ken Ortiz on 10-04-2021 Basophils (Bld) [#/Vol] 0.0 10*3/uL 0.0-0.[address] [facility] Basophils/100 WBC Auto (Bld) Ordered By: Ken Ortiz on 10-04-2021 Basophils/100 WBC (Bld) 0.7 % . [facility] Blood hemoglobin measurement (mass/volume)Ordered By: Ken Ortiz on 10-04-2021 Hemoglobin (Bld) [Mass/Vol] 14.6 g/dL 11.8-15.[address] [facility] Blood leukocytes automated c ount (number/volume)Ordered By: Ken Ortiz on 10-04-2021 WBC (Bld) [#/Vol] 4.4 10*3/uL 4.5-11.0 [facility] Body fluid albumin measureme nt (mass/volume)Ordered By: Ken Ortiz on 10-04-2021 Albumin (Body fld) [Mass/Vol] 3.7 g/dL 3.2-5.[address] [facility] C reactive protein [Mass/vol ume] in Serum or PlasmaOrdered By: Ken Ortiz on 10-04-2021 CRP [Mass/Vol] 0.6 mg/dL 0.0-1.[address] [facility] Creatinine and Glomerular fi ltration rate.predicted panel (S/P/Bld)Ordered By: Ken Ortiz on 10-04-2021 Creatinine [Mass/Vol] 0.74 mg/dL 0.44-1.03 [facility] Elastase.pancreatic [Mass/ma ss] in StoolOrdered By: Ken Ortiz on 10-04-2021 Elastase.pancreatic (Stl) [Mass/Mass] >[address] >[address] [facility] Comment on above: Result Units: ug Luz st./g Severe Pancreatic Insufficiency: <100 Moderate Pancreatic Insufficiency: 100 - 200 Normal: >200 Performed at: [facility] - [facility] [address] [id number] Medical Assistant Float: Lamont Young MD, Phone: [phone] Eosinophils Auto (Bld) [#/Vo l]Ordered By: Ken Ortiz on 10-04-2021 Eosinophils (Bld) [#/Vol] 0.2 10*3/uL 0.0-0.[address] [facility] Eosinophils/100 WBC Auto (Bl d)Ordered By: Ken Ortiz on 10-04-2021 Eosinophils/100 WBC (Bld) 5.2 % . [facility] Erythrocyte distribution wid th Auto (RBC) [Ratio]Ordered By: Ken Ortiz on 10-04-2021 Erythrocyte distribution width (RBC) [Ratio] 13.1 % 11.9-15.[address] [facility] Erythrocyte sedimentation ra te by Photometric methodOrdered By: Ken Ortiz on 10-04-2021 ESR Photometric method (Bld) [Velocity] 5 mm/hr 0-[address] [facility] Estimated glomerular filtrat ion rate (GFR) non- AmericanOrdered By: Ken Ortiz on 10-04-2021 GFR/1.73 sq M.predicted among non-blacks MDRD (S/P/Bld) [Vol rate/Area] > 60 mL/Min [facility] Globulin Calc (S) [Mass/Vol] Ordered By: Ken Ortiz on 10-04-2021 Globulin (S) [Mass/Vol] 2.5 g/dL [facility] Hematocrit Auto (Bld) [Volum e fraction]Ordered By: Ken Ortiz on 10-04-2021 Hematocrit (Bld) [Volume fraction] 43.7 % 34.0-46.[address] [facility] IgA [Mass/volume] in Serum o r PlasmaOrdered By: Ken Ortiz on 10-04-2021 IgA [Mass/Vol] 168 mg/dL 87-[address] [facility] Comment on above: Performed at: - [address] [id number] Medical Assistant Float: Kevin Sanders PhD, Phone: [phone] Laboratory - Hematology and Cell countsOrdered By: Ken Ortiz on 10-04-2021 Nucleated RBC/100 WBC (Bld) [Ratio] 0.0 % 0-0.[address] [facility] Lymphocytes Auto (Bld) [#/Vo l]Ordered By: Ken Ortiz on 10-04-2021 Lymphocytes (Bld) [#/Vol] 1.5 10*3/uL 1.00-4.[address] [facility] Lymphocytes/100 WBC Auto (Bl d)Ordered By: Ken Ortiz on 10-04-2021 Lymphocytes/100 WBC (Bld) 34.1 % . [facility] MCH Auto (RBC) [Entitic mass ]Ordered By: Ken Ortiz on 10-04-2021 MCH (RBC) [Entitic mass] 29.8 pg 24.7-34.[address] [facility] MCHC Auto (RBC) [Mass/Vol]Or dered By: Ken Ortiz on 10-04-2021 MCHC (RBC) [Mass/Vol] 33.5 g/dL 32.0-35.0 [facility] MCV Auto (RBC) [Entitic vol] Ordered By: Ken Ortiz on 10-04-2021 MCV (RBC) [Entitic vol] 88.9 fL 80-[address] [facility] Monocytes Auto (Bld) [#/Vol] Ordered By: Ken Ortiz on 10-04-2021 Monocytes (Bld) [#/Vol] 0.4 10*3/uL 0.0-0.[address] [facility] Monocytes/100 WBC Auto (Bld) Ordered By: Ken Ortiz on 10-04-2021 Monocytes/100 WBC (Bld) 8.1 % . [facility] Neutrophils Auto (Bld) [#/Vo l]Ordered By: Ken Ortiz on 10-04-2021 Neutrophils (Bld) [#/Vol] 2.3 10*3/uL 1.8-7.[address] [facility] Neutrophils/100 WBC Auto (Bl d)Ordered By: Ken Ortiz on 10-04-2021 Neutrophils/100 WBC (Bld) 51.9 % . [facility] No Panel InformationOrdered By: Ken Ortiz on 10-04-2021 Endomysial IgA Antibody Negative Negative [facility] Estimated GFR () > 60 mL/Min [facility] Comment on above: GFR estimated refere nce range: According to KDOQI guidelines, <60 ml/min/1.73m2 is sufficient to diagnose a patient with chronic kidney disease. Pharmacy Creatinine Clearance (Chem N/A [facility] Platelet mean volume Auto (B ld) [Entitic vol]Ordered By: Ken Ortiz on 10-04-2021 Platelet mean volume (Bld) [Entitic vol] 9.2 fL 6.3-10.[address] [facility] Platelets Auto (Bld) [#/Vol] Ordered By: Ken Ortiz on 10-04-2021 Platelets (Bld) [#/Vol] 286 10*3/uL 150-[address] [facility] Protein [Mass/volume] in Ser um or PlasmaOrdered By: Ken Ortiz on 10-04-2021 Protein [Mass/Vol] 6.2 g/dL 6.1-7.9 [facility] RBC Auto (Bld) [#/Vol]Ordere d By: Ken Ortiz on 10-04-2021 RBC (Bld) [#/Vol] 4.92 10*6/uL 3.60-5.00 [facility] Serum gliadin peptide IgA an tibody assay (units/volume)Ordered By: Ken Ortiz on 10-04-2021 Gliadin peptide IgA Qn (S) 4 units 0-[address] [facility] Comment on above: Negative 0 - 19 Weak Positive 20 - 30 Moderate to Strong Positive >30 Serum gliadin peptide IgG an tibody assay (units/volume)Ordered By: Ken Ortiz on 10-04-2021 Gliadin peptide IgG Qn (S) 2 units 0-[address] [facility] Comment on above: Negative 0 - 19 Weak Positive 20 - 30 Moderate to Strong Positive >30 Serum or plasma alanine reyna otransferase measurement without P-5'-P (enzymatic activiOrdered By: Ken Ortiz on 10-04-2021 ALT No additional P-5'-P [Catalytic activity/Vol] 16 U/L 10-[address] [facility] Serum or plasma albumin/glob ulin mass ratioOrdered By: Ken Ortiz on 10-04-2021 Albumin/Globulin [Mass ratio] 1.5 {ratio} [facility] Serum or plasma alkaline raphael sphatase measurement (enzymatic activity/volume)Ordered By: Ken Ortiz on 10-04-2021 ALP [Catalytic activity/Vol] 55 U/L 32-[address] [facility] Serum or plasma aspartate am inotransferase measurement (enzymatic activity/volume)Ordered By: Ken Ortiz on 10-04-2021 AST [Catalytic activity/Vol] 18 U/L 10-[address] [facility] Serum or plasma calcium shellei urement (mass/volume)Ordered By: Ken Ortiz on 10-04-2021 Calcium [Mass/Vol] 9.7 mg/dL 8.2-10.2 [facility] Serum or plasma chloride isidro surement (moles/volume)Ordered By: Ken Ortiz on 10-04-2021 Chloride [Moles/Vol] 101 mmol/L 95-114 [facility] Serum or plasma glucose shellie urement (mass/volume)Ordered By: Ken Ortiz on 10-04-2021 Glucose [Mass/Vol] 85 mg/dL 70-100 [facility] Comment on above: ADA recommended refe rence range Random Glucose Reference Range is dependent on time and content of last meal. Glucose of more than 200 mg/dL in a nonstressed, ambulatory subject supports the diagnosis of Diabetes Mellitus. Serum or plasma potassium me asurement (moles/volume)Ordered By: Ken Ortiz on 10-04-2021 Potassium [Moles/Vol] 4.4 mmol/L 3.5-5.1 [facility] Serum or plasma sodium measu rement (moles/volume)Ordered By: Ken Ortiz on 10-04-2021 Sodium [Moles/Vol] 138 mmol/L 136-146 [facility] Serum or plasma total biliru bin measurement (mass/volume)Ordered By: Ken Ortiz on 10-04-2021 Bilirubin [Mass/Vol] 0.5 mg/dL 0.3-1.2 [facility] Serum or plasma total carbon dioxide measurement (moles/volume)Ordered By: Ken Ortiz on 10-04-2021 CO2 [Moles/Vol] 30.4 mmol/L 22.0-30.0 [facility] Serum or plasma urea nitroge n measurement (mass/volume)Ordered By: Ken Ortiz on 10-04-2021 Urea nitrogen [Mass/Vol] 13 mg/dL 9- [facility] Serum tissue transglutaminas e (tTG) IgA antibody assay (units/volume)Ordered By: Ken Ortiz on 10-04-2021 tTG IgA Qn (S) <2 U/mL 0-[address] [facility] Comment on above: Negative 0 - 3 Weak Positive 4 - 10 Positive >10 Tissue Transglutaminase (tTG) has been identified as the endomysial antigen. Studies have demonstr- ated that endomysial IgA antibodies have over 99% specificity for gluten sensitive enteropathy. Serum tissue transglutaminas e (tTG) IgG antibody assay (units/volume)Ordered By: Ken Ortiz on 10-04-2021 tTG IgG Qn (S) <2 U/mL 0-[address] [facility] Comment on above: Negative 0 - 5 Weak Positive 6 - 9 Positive >9 Vital Signs Date Time Vital Sign Value Performing Clinician Facility 07-31-2023 08:37-0400 Body height 152.4 cm [facility] 07-31-2023 08:37-0400 Body mass index (BMI) [Ratio] 27.3 kg/m2 [facility] 07-31-2023 08:37-0400 Body weight 63.5 kg [facility] 07-31-2023 08:37-0400 Diastolic blood pressure 77 mm[Hg] [facility] 07-31-2023 08:37-0400 Heart rate 71 /min [facility] 07-31-2023 08:37-0400 SaO2% (BldA) [Mass fraction] 99 % [facility] 07-31-2023 08:37-0400 Systolic blood pressure 136 mm[Hg] [facility] 07-11-2023 10:22-0400 Body height 152.4 cm [facility] 07-11-2023 10:22-0400 Body mass index (BMI) [Ratio] 28.2 kg/m2 [facility] 07-11-2023 10:22-0400 Body weight 65.48 kg [facility] 07-11-2023 10:22-0400 Diastolic blood pressure 81 mm[Hg] [facility] 07-11-2023 10:22-0400 Heart rate 67 /min [facility] 07-11-2023 10:22-0400 Systolic blood pressure 146 mm[Hg] [facility] 05-08-2023 14:36-0500 Body height 152.4 cm Paul Visci DO Work Phone: [facility] 05-08-2023 14:36-0500 Body mass index (BMI) [Ratio] 28.32 kg/m2 Paul Visci DO Work Phone: [facility] 05-08-2023 14:36-0500 Body weight 65.77 kg Paul Visci DO Work Phone: [facility] 05-08-2023 14:36-0500 Diastolic blood pressure 84 mm[Hg] Paul Visci DO Work Phone: [facility] 05-08-2023 14:36-0500 Systolic blood pressure 124 mm[Hg] Paul Visci DO Work Phone: [facility] 04-24-2023 10:05-0500 Body mass index (BMI) [Ratio] 28.55 kg/m2 Alice Luna-[place] DO Work Phone: [facility] 04-24-2023 10:05-0500 Body weight 66.32 kg Alice Luna-[place] DO Work Phone: [facility] 04-24-2023 10:05-0500 Diastolic blood pressure 64 mm[Hg] Alice Luna-[place] DO Work Phone: [facility] 04-24-2023 10:05-0500 Heart rate 64 /min Alice Luna-[place] DO Work Phone: [facility] 04-24-2023 10:05-0500 SaO2% (BldA) [Mass fraction] 98 % Alice Luna-[place] DO Work Phone: [facility] 04-24-2023 10:05-0500 Systolic blood pressure 112 mm[Hg] Alice Luna-[place] DO Work Phone: [facility] 12-09-2022 10:00-0400 Body height 152.4 cm Gabe Gonzalez Other [employer] Other 12-09-2022 10:00-0400 Body mass index (BMI) [Ratio] 32.22 kg/m2 Gabe Gonzalez Other [facility] Other 12-09-2022 10:00-0400 Body weight 74.84 kg Gabe Gonzalez Other [facility] Other 12-09-2022 10:00-0400 Diastolic blood pressure 81 mm[Hg] Gabe Gonzalez Other [facility] Other 12-09-2022 10:00-0400 Systolic blood pressure 129 mm[Hg] Gabe Scton Other [facility] Other 09-03-2022 13:50-0400 Diastolic blood pressure 79 mm[Hg] DO Alice Luna-[place]ro[place] Work Phone: [facility] 09-03-2022 13:50-0400 Heart rate 56 /min DO Alice Luna-[place] Work Phone: [facility] 09-03-2022 13:50-0400 SaO2% (BldA) [Mass fraction] 100 % DO Alice Luna-[place] Work Phone: [facility] 09-03-2022 13:50-0400 Systolic blood pressure 125 mm[Hg] DO Alice Luna-[place] Work Phone: [facility] 09-03-2022 12:25-0400 Body height 152.4 cm DO Alice Luna-[place] Work Phone: [facility] 09-03-2022 12:25-0400 Body temperature 97.9 [degF] DO Alice Luna-[place] Work Phone: [facility] 09-03-2022 12:25-0400 Body weight 72.12 kg DO Alice Luna-[place] Work Phone: [facility] 09-03-2022 12:25-0400 Respiratory rate 16 /min DO Alice Luna-[place] Work Phone: [facility] 05-02-2022 20:00-0500 Diastolic blood pressure 86 mm[Hg] DO Alice Luna-[place] Work Phone: [facility] 05-02-2022 20:00-0500 Heart rate 66 /min DO Alice Luna-[place] Work Phone: [facility] 05-02-2022 20:00-0500 Respiratory rate 20 /min DO Alice Luna-[place] Work Phone: [facility] 05-02-2022 20:00-0500 SaO2% (BldA) [Mass fraction] 99 % DO Alice Luna-[place] Work Phone: [facility] 05-02-2022 20:00-0500 Systolic blood pressure 137 mm[Hg] DO Alice Luna-[place] Work Phone: [facility] 05-02-2022 16:29-0500 Body height 152.4 cm DO Alice Luna-[place] Work Phone: [facility] 05-02-2022 16:29-0500 Body temperature 97.5 [degF] DO Alice Luna-[place] Work Phone: [facility] 05-02-2022 16:29-0500 Body weight 72.12 kg DO Alice Luna-[place] Work Phone: [facility] 11-09-2021 13:34-0400 Body height 152.4 cm DO Alice Luna-[place] Work Phone: [facility] 11-09-2021 13:34-0400 Body temperature 98 [degF] DO Alice Luna-[place] Work Phone: [facility] 11-09-2021 13:34-0400 Body weight 71 kg DO Alice Luna-[place] Work Phone: [facility] 11-09-2021 13:34-0400 Diastolic blood pressure 80 mm[Hg] DO Alice Luna-[place] Work Phone: [facility] 11-09-2021 13:34-0400 Heart rate 78 /min DO Alice Luna-[place] Work Phone: [facility] 11-09-2021 13:34-0400 Respiratory rate 18 /min DO Alice Luna-[place] Work Phone: [facility] 11-09-2021 13:34-0400 SaO2% (BldA) [Mass fraction] 97 % DO Alice Luna-[place] Work Phone: [facility] 11-09-2021 13:34-0400 Systolic blood pressure 187 mm[Hg] DO Alice Luna-[place] Work Phone: [facility] 12-20-2020 14:15-0400 Body height 152.4 cm Ken Ortiz Other [facility] Other 12-20-2020 14:15-0400 Body mass index (BMI) [Ratio] 31.05 kg/m2 Ken Ortiz Other [facility] Other 12-20-2020 14:15-0400 Body weight 72.12 kg Ken Ortiz Other [employer] Other Encounters Encounter Date Encounter Type Care Provider Facility Start: 09-29-2023 ambulatory ALICE POLO Not Available Start: 08-27-2023 End: 08-27-2023 Patient encounter procedure DO Alice Luna-[place] Work Phone: [facility] Work Phone: Start: 08-27-2023 End: 08-27-2023 ambulatory DO Alice Luna-[place] Work Phone: [facility] Work Phone: Start: 07-31-2023 End: 07-31-2023 ambulatory [facility] Work Phone: Start: 07-31-2023 End: 07-31-2023 Patient encounter procedure [facility] Work Phone: Start: 07-16-2023 End: 07-16-2023 ambulatory PAUL A VISCI Not Available Start: 07-11-2023 End: 07-11-2023 ambulatory [facility] Work Phone: Start: 07-11-2023 End: 07-11-2023 Patient encounter procedure [facility] Work Phone: Start: 06-09-2023 End: 06-09-2023 ambulatory RAQUEL ORNELASION Not Available Start: 06-02-2023 End: 06-02-2023 ambulatory PAUL A VISCI Not Available Start: 05-08-2023 End: 05-08-2023 Office outpatient visit 15 minutes Paul A Visci DO Work Phone: [facility] Comment on above: Body mass index (BMI ) 28.0-28.9, adult; Abnormal weight gain; Yeast infection; BMI 29.0-29.9,adult Start: 05-08-2023 End: 05-08-2023 ambulatory PAUL A VISCI Not Available Start: 04-24-2023 End: 04-24-2023 Patient encounter status Alice Baca Chasey DO Work Phone: [facility] Work Phone: Start: 04-24-2023 End: 04-24-2023 Periodic preventive med est patient 40-64yrs Alice Baca Melani DO Work Phone: [facility] Comment on above: Encounter for preven tative adult health care examination (Primary Dx); Arthritis, lumbar spine; Depression, major, in remission (HCC) (CMS/HCC); Gastroesophageal reflux disease without esophagitis; Postmenopausal; Hormone replacement therapy; Class 1 obesity Start: 04-24-2023 End: 04-24-2023 ambulatory ALICE Keven STONEMaci Not Available Start: 03-31-2023 End: 03-31-2023 ambulatory PAUL A VISCI Not Available Start: 03-06-2023 End: 03-06-2023 ambulatory PAUL A VISCI Not Available Start: 02-06-2023 End: 02-06-2023 ambulatory PAUL A VISCI Not Available Start: 12-09-2022 End: 12-09-2022 ambulatory Gabe Gonzalez Other [employer] Other Start: 12-09-2022 Office outpatient visit 15 minutes Gabe Gonzalez [facility] Start: 09-26-2022 End: 09-26-2022 Patient encounter procedure DO Alice Stoney Work Phone: [facility] Work Phone: Start: 09-26-2022 End: 09-26-2022 ambulatory DO Alice Lnua-Harro[place] Work Phone: [facility] Work Phone: Start: 09-04-2022 End: 09-04-2022 ambulatory Edison Monroe Other [facility] [employer] Other Start: 09-04-2022 Telephone encounter Edison Monroe [facility] Start: 09-03-2022 End: 09-03-2022 Admission to same day surgery center DO Alice Luna-[place] Work Phone: [facility] Work Phone: Start: 08-29-2022 ambulatory ALICE LUNA KIRSTENY Fac ility:H1 Start: 06-12-2022 End: 06-12-2022 ambulatory DO Alice Luna-[place] Work Phone: [facility] Work Phone: Start: 06-12-2022 End: 06-12-2022 Patient encounter procedure DO Alice Krausaver-[place] Work Phone: [facility] Work Phone: Start: 05-30-2022 End: 05-31-2022 ambulatory ALICE FERRER Facility: Start: 05-21-[address] Alice Polo Facility:[facility] Start: 05-14-2022 End: 05-14-2022 ambulatory ALICE FERRER Facility: Start: 05-10-[address] Alice Polo Facility:[id number] Start: 05-07-2022 End: 05-07-2022 ambulatory DO Alice Luna-[place] Work Phone: [facility] Work Phone: Start: 05-07-2022 End: 05-07-2022 Patient encounter procedure DO Alice Luna-[place] Work Phone: [facility] Work Phone: Start: 05-02-2022 End: 05-02-2022 Emergency department patient visit DO Alice Luna-[place] Work Phone: [facility] Work Phone: Start: 05-02-2022 End: 05-03-2022 ambulatory ALICE FERRER Facility:[facility]1 Start: 04-16-2022 End: 04-16-2022 ambulatory ALICE FERRER Facility:[facility]1 Start: 02-07-2022 End: 02-08-2022 ambulatory ALICE FERRER Facility:[facility] Start: 11-15-2021 End: 11-16-2021 ambulatory JONI MAHMOOD . Facility:[facility] Start: 11-09-2021 End: 11-09-2021 Emergency department patient visit DO Alice Polo Work Phone: [facility] Start: 10-16-2021 End: 10-16-[address] ARNAV COREA . Facility:[facility]1 Start: 10-11-2021 End: 10-11-2021 ambulatory Ken Ortiz Other [employer] Other Start: 10-11-2021 Telephone encounter Ken Ortiz [facility] Start: 10-04-2021 End: 10-04-2021 Patient encounter procedure DO Alice Polo Work Phone: [facility] [place] Start: 10-03-2021 End: 10-03-2021 ambulatory Ken Ortiz Other [facility] Other Start: 10-03-2021 Telephone encounter Ken Ortiz [facility] Start: 09-20-2021 End: 09-21-2021 ambulatory JONI MAHMOOD . Facility:[facility]1 Start: 02-26-2021 End: 02-26-2021 ambulatory Ken Ortiz Other [facility] Other Start: 02-26-2021 Telephone encounter Ken Ortiz [facility] Start: 12-20-2020 Office outpatient visit 25 minutes Ken Ortiz [facility] Procedures Date Procedure Procedure Detail Performing Clinician Start: 12-23-2022 Mammography Alice Polo DO Work Phone: Start: 09-03-2022 Esophagogastroduodenoscopy DO Alice Polo Work Phone: Start: 05-02-2022 Plain chest X-ray DO Alice Polo Work Phone: Start: 11-09-2021 CT of facial bones without contrast DO S love Polo Work Phone: Start: 12-29-2020 Colonoscopy Alice Polo DO Work Phone: Plan of Treatment Date Care Activity Detail Author Start: 12-29-2030 Screening for malignant neoplasm of colon [facility] Start: 04-27-2024 End: 04-27-2024 Patient encounter procedure 04/27/2024 10:00 AM EST Office Visit [facility] [address] [place] [address] Luna-Aliec Ferrer D, DO [address] [place] [address] [facility] Start: 12-24-2023 Screening for malignant neoplasm of breast Mammogram [facility] Start: 04-28-2023 End: 04-28-2023 Patient encounter procedure 04/28/2023 9:30 AM EST Office Visit [facility] [address] [place] [id number] Paul Mcgrath, DO [address] [place] [address] BMI 29.0-29.9,adult [facility] Comment on above: BMI 29.0-29.9,adult Start: 09-03-[address] [facility] Start: 1960 Screening for malignant neoplasm of colon [facility] Patient Education [facility] Work Phone: Patient referral [facility] Work Phone: Immunizations Immunization Date Immunization Notes Care Provider Meseret inman 12-25-2022 RSV, recombinant, protein subunit RSVpreF, adjuvant reconstitu, 120mcg/0.5mL, PF (Arexvy) Alice Luna-[place] DO Work Phone: [facility] 05-28-2021 zoster vaccine recombinant Alice Jeremy-[place] DO Work Phone: [facility] 02-07-2021 zoster vaccine recombinant Alice Jeremy-[place] DO Work Phone: [facility] 06-29-2020 COVID-19 mRNA, Comirnaty (Pfizer) DO Alice Jeremy-[place] Work Phone: [facility] 06-09-2020 COVID-19 mRNA, Comirnaty (Pfizer) DO Alice Luna-[place] Work Phone: [facility] 06-29-2015 tetanus toxoid, redu yoselin diphtheria toxoid, and acellular pertussis vaccine, adsorbed Alice Jeremy-[place] DO Work Phone: [facility] Payers Date Payer Category Payer Self-pay [id number] 2020 Medicaid [employer] [place] [id number] 2020-Present [address] [place] [address] [id number] 1962 Unknown [id number] 2.16.840.1.360657.3.579.2. 356 1962 Unknown [id number] 2.16.840.1.549792.3.579.2. 593 1962 Unknown [id number] 2.16.840.1.868456.3.579.2. 593 1962 Unknown [id number] 2.16.840.1.503345.3.579.2. 593 1962 Unknown [id number] 2.16.840.1.550652.3.579.2. 593 1962 Unknown [id number] 2.16.840.1.288946.3.579.2. 593 1962 Unknown [id number] 2.16.840.1.956972.3.579.2. 59 1962 Unknown [id number] 2.16.840.1.267334.3.579.2. 593 1962 Unknown [id number] 2.16.840.1.619388.3.579.2. 59 1962 Unknown [id number] 2.16.840.1.796007.3.579.2. 593 1962 Unknown [id number] 2.16.840.1.931277.3.579.2. 59 1962 Unknown [id number] 2.16.840.1.859513.3.579.2. 593 1962 Unknown [id number] 2.16.840.1.347387.3.579.2. 1258 1962 Unknown [id number] 2.16.840.1.255345.3.579.2. 1259 1962 Unknown [id number] 2.16.840.1.457947.3.579.2. 125 1962 Unknown [id number] 2.16.840.1.710925.3.579.2. 1259 1962 Unknown [id number] 2.16.840.1.566228.3.579.2. 125 1962 Unknown [id number] 2.16.840.1.601817.3.579.2. 1259 1962 Unknown [id number] 2.16.840.1.746805.3.579.2. 1259 1962 Unknown [id number] 2.16.840.1.721046.3.579.2. 1259 1962 Unknown [id number] 2.16.840.1.932123.3.579.2. 1259 1962 Unknown [id number] 2.16.840.1.395487.3.579.2. 1259 1959 Medicaid [id number] 1959 Unknown [id number] 2.16.840.1.454860.19 Private Health Insurance [id number] Unknown [place] BC/BS [id number] Unknown HCAP/HFA/FAP Active [id number] Unknown [id number] 2.16.840.1.857275.3.579.2. 531 Unknown [id number] 2.16.840.1.109183.3.579.2. 531 Social History Date Type Detail Facility Start: 04-24-2023 End: 05-05-2023 Sex Assigned At [facility] Work Phone: Start: 11-09-2021 Tobacco smoking stat us [facility] Never smoked tobacco (finding) [facility] Start: 1960 Sex Assigned At Female [facility] Start: 05-02-2022 End: 09-03-2022 Tobacco smoking status LAIS Ex-smoker (finding) [facility] End: 03-24-2012 History of tobacco use Current smoker [facility] End: 03-24-2012 History of tobacco use Cigarette Smoker [facility] Start: 01-08-2023 Tobacco use and exposure Smokeless tobacco non-user [facility] Start: 04-27-2023 End: 05-05-2023 Alcohol intake Current drinker of alcohol (finding) [facility] Start: 04-24-2023 End: 05-05-2023 History [...] 04-24-2023 Alcohol Comment Once a week [facility] Start: 12-04-2022 Gender identity Identifies as female gender (finding) [facility] Medical Equipment Procedure Code Equipment Code Equipment Origin al Text Equipment Identifier Dates Tendon repair Tendon/ligament bone anchor, non-bioabsorbable [id number] [facility] Start: 12-10-2018 Goals Date Patient Goal Desired Activity /State Clinical Notes 12-20-2020 to 05-08-2023 Paul Mcgrath, DO - 05/08/2023 2:30 PM ESTSandra Keven Polo, DO - 04/27/2023 6:53 PM ESTSandra [...] per pt. COLONOSCOPY 12/29/2020 Normal EGD 10/31/2015 EGD/[place] done by Dr. Ortiz (stenosis of upper esoph sphincter and small polyp of sigmoid colon) EGD 12/29/2020 EGD with esoph dilation (d/t esoph spasms) - Done by Dr. Ortiz FINGER SURGERY Left 04/27/2018 Left thumb surgery - Dr. Landaverde (due to OA) FINGER SURGERY Left 12/10/2018 Left thumb reconstruction / Dr. Bearden HYSTERECTOMY 2007 TVH, ovaries spared - Disease: Mennorhagia adenomyosis HYSTEROSCOPY 2004 Hysteroscopy, D&C ablation, diag lap - Disease: [...] Laparoscopy for pelvic pain (Dr. Smith) - ' RADIOFREQUENCY ABLATION Right 01/28/2023 Lumbar 4/5 and L5/S1. Done by Dr Maldonado RHIZOTOMY W/ RADIOFREQUENCY ABLATION Left 01/07/2023 L4/5 and L5/S1 done [address] Dr Maldonado TONSILLECTOMY [address] Ba WISDOM TOOTH EXTRACTION 1981 [place] teeth impacted Family History Problem Relation Name Age of Onset Depression Mother Michela Cardenastt,Ken Garrett(father), Ronni Garrett (b Hyperthyroidism Mother Michelasuzie Garrett,Ken Garrett(father), Ronni Garrett (b Osteoporosis Mother Michela Tami,Ken Garrett(father), Ronni Garrett (b Osteoarthritis Mother Michela Garrett,Ken Garrett(father), Ronni Garrett (b Stroke Mother Michela Tami,Ken Garrett(father), Ronni Garrett (b Alcohol abuse Father [...] yeast vaginitis-Rx diflucan. documented in this encounter [facility] 04-27-2023 History of Presen t illness Narrative [...] Associated Problem(s): Depression, major, in remission (HCC) ([facility]/HCC) -Pt is doing well at this time [...] esophagitis Postmenopausal Depression, major, in remission (HCC) (CMS/[facility]) Hormone replacement therapy Review of [...] . Postmenopausal Depression, major, in remission (HCC) ([facility]) Overview Prescribed citalopram Current Assessment & Plan -Pt is doing well at this time on current dose of celexa. Based on review of patient's medications and current medical status; continuation of medications most appropriate. Compliance with medications and/or management recommendations encouraged. Monitor Hormone replacement therapy Overview Prescribed estradiol 0.5 mg daily by ENGINE OILER/Dr Mcgrath Other Visit Diagnoses Encounter for preventative [...] Annual Physical. Alice Polo D.O. Board Certified Family Advocate documented in this encounter [facility] 12-09-2022 Evaluation note Encounter Date Diagnosis Assessment Notes Nov, GERD without esophagitis (ICD-10 - K21.9) PATIENT DOING WELL WITH THE PANTOPRAZOLE BID DOSING. SHE REPORTS MAYBE ONCE A WEEK WITH A FLARE OF SYMPTOMS. PATIENT CAN USE PEPCID OTC OR TUMS. [facility] Other 03-09-2023 NoteCONSULTATION CONSULTATION DATE: 05/30/2022 HISTORY [...] for re-evaluation. Patient agrees with this plan.[id number] NotePROCEDURE: XR HIP LT 2 3V WO [...] authenticated by: GENESIS BELLO Date: 2022-05-02 14:36[facility] [id number] NoteCONSULTATION CONSULTATION DATE: 05/02/2022 HISTORY OF PRESENT [...] completed 10 treatments of physical therapy in [place]. The patient does state, at the end [...] followed up in the office post procedure.[facility] [id number] NoteCONSULTATION CONSULTATION DATE: 02/07/2022 HISTORY OF PRESENT [...] review her thoracic x-ray at that time.[facility] [id number] NoteCONSULTATION CONSULTATION DATE: 11/15/2021 This is a [...] indicated. 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 She describes [...] be followed up it the clinic post-procedure. [facility] Signed and Approved by: JONI MAHMOOD . 09/27/2021 16:26:00[facility]12-06-2021 Evaluation note* Encounter Date Diagnosis Assessment Notes Treatment Notes Treatment Clinical Notes Feb, GERD (gastroesophageal reflux disease) (ICD-10 - K21.9) [facility] Other 09-29-2021 Evaluation note* Encounter Date Diagnosis Assessment Notes Treatment Notes Treatment Clinical Notes Nov, GERD (gastroesophage al reflux disease) (ICD-10 - K21.9) GERD home care material was printed EGD START CARAFATE 1 GRAM TID Nov, Irritable bowel synd john with both constipation and diarrhea (ICD-10 - K58.2) Nov, Pharyngoesophageal dysphagia (ICD-10 - R13.14) [employer] Other Evaluation noteNo InformationNort [employer] Other Evaluation noteNo assessment information available [facility] Work Phone: Evaluation note* Diagnosis Encounter for preventative adult health care examination- Primary Arthritis, lumbar spine Depression, major, in remission (HCC) ([facility]/HCC) Gastroesophageal reflux disease without esophagitis Esophageal reflux Postmenopausal Asymptomatic postmenopausal status (age-related) (natural) Hormone replacement therapy Class 1 obesity BMI 29.0-29.9,adult documented in this encounter [facility] HealthcareEvaluation note* Diagnosis Body mass index (BMI) 28.0-28.9, adult Abnormal weight gain Yeast infection BMI 29.0-29.9,adult documented in this encounter [facility] HealthcareEvaluation note* Diagnosis Onset Date Resolution Status GERD (gastroesophageal reflux disease) acute [facility] Work Phone: evaluation note* Diagnosis Onset Date Resolution Status GERD (gastroesophageal reflux disease) acute BMI 27.0-27.9,adult acute Chronic intermittent hypoxia with obstructive sleep apnea acute GERD (gastroesophageal reflux disease) acute Intolerance to BiPAP/CPAP ac maura Obstructive sleep apnea acut e [facility] Work Phone: His[facility] general Narrative - Reported* Type Description Date Medical History Gastroesophageal Reflux Disease Medical History Anxiety/Depression Medical History seasonal asthma Surgical History Caesarean Section X 3 Surgical History Tonsillectomy/Adenoidectomy Surgical History Laparoscopy Surgical History Hysteroscopy/Endometrial Ablati on Surgical History Laparoscopy Cholecystectomy Surgical History [facility] tenton interposition Arthro plasty 2019 Hospitalization History See Above [facility] Other History [facility] - [facility] [employer] Other [facility] general Narrative - Reported* Type Description Date [...] History ablasion-LUMBAR NERVE Hospitalization History See Above [facility] Other Hospital Discharge instructions Additional Instructions Follow up with your primary care doctor Return to the ED If you develop worsening symptoms or [facility] Work Phone: Chief Complaint and Reason [...] Polo , DO Primary Care Provider Active Edison Monroe MD Attending Provider Active Comber Fixer Relationship Specialty Start Date End Date MarkEliot Alice D, DO [address] [place] [address] PCP - General Internal Medicine 07/30/22 Comber Fixer Relationship Specialty Start Date End Date MarkAlice Ferrer DO [address] [place] [address] PCP - General Internal Medicine 07/30/22 Team Status: Inactive Member Role Status Dates Alice Polo , Primary Care Provider Active Start: July 11, [...] content) DATE CREATED AUTHOR 12/21/2021 [facility] dichi Specialist DATE CREATED AUTHOR AUTHOR'S ORGANIZ ATION 05/25/2022 [facility] DATE CREATED AUTHOR AUTHOR'S ORGANIZ ATION 06/05/2022 [facility] pital DATE CREATED AUTHOR AUTHOR'S ORGANIZ ATION 09/05/2023 [facility] DATE CREATED AUTHOR AUTHOR'S ORGANIZ ATION 09/30/2023 [facility] dical Specialists [facility] FOR RECORDS PERTAINING TO PATIENTS WHO [...] BE BASED ON THE PRIMARY CLINICAL RECORDS. [employer] [facility]. provides no warranty or guarantee of the accuracy or completeness of information in this document.
[2023-10-07 08:08] VITALS: BP 141/81; PULSE 60; TEMP 36.3; O2SAT 100
[2023-10-07 08:44] VITALS: BP 148/73; BP 148/74; PULSE 58; PULSE 60; O2SAT 98
[2023-10-07] MEDS: METHYLPREDNISOLONE ACETATE 80 MG/ML VIAL INJ (08:48)
[2023-10-07] MEDS: BUPIVACAINE HCL 0.25% PF 25 MG/10 ML VIAL 2 ML INJ (08:48)
[2023-10-07] MEDS: IOHEXOL 240 MG/ML - 10 ML VIAL 36 MG INJ (08:48)
[2023-10-07] MEDS: 0.9 % SODIUM CHLORIDE 10 ML SYRINGE - SALINE FLUSH 2 ML INJ (08:48)
[2023-10-07] MEDS: LIDOCAINE HCL 2% PF 100 MG/5 ML VIAL 2 ML INJ (08:48)
--- NOTE | 2023-10-07 09:26 | P.ON_ITS ---
Date of procedure: 10/07/23 Pre-op diagnosis: Lumbar stenosis with neurogenic claudication Post-op diagnosis: same as pre-op Procedure: Lumbar 5/sacral 1 Epidural Steroid Injection Under fluoroscopic guidance Immediate complications none Solution used for injection: Marcaine 0.25% 2mL, 2cc Normal saline, Depo-Medrol 80mg Omnipaque 3 mL Anesthesia local 2% lidocaine up to 4ml Timeout process compliant After informed consent obtained. Patient brought to the procedure room placed in the prone position. Skin overlying the area was prepped and draped in a sterile fashion using betadine. 25 gauge needle used to raise a skin wheel with local anesthetic over the target area identified under fluoroscopy. A 17 gauge Touhy needle Was inserted over the anesthetized area and directed towards the inter- space under fluoroscopic guidance. Epidural space was identified with loss of resistance technique to air. Needle Tip placement confirmed with injection of contrast solution in AP and Lateral views. Steroid solution was then injected. Anesthesia: Local Surgeon: Mendoza Maldonado Condition: stable
== END 2023-10-07 08:51 | disposition home or self-care (01) ==
LOC: SURGOUT 07:44
PROVIDERS: PCP Internal Medicine; Visit Provider Anesthesiology Pain Medicine
DX: M48.062 Spinal stenosis, lumbar region with neurogenic claudication (principal)
CPT/HCPCS: 62323; J0665; J1010; Q9966

== ENCOUNTER 2023-10-16 10:26 | Outpatient (OUT) | payer OTHER, SELFPAY ==
--- OUTSIDE RECORDS SUMMARY | 2023-10-16 10:45 | XMS_ITS ---
Patient Summarization (C-CDA 2.1 CCD) Created on: October 16, 2023 Pedro ROMERO~DANNI : 1960 Sex: Female Author Organization Sample organization Care Team Providers Care Senior Manufacturing Supervisor Name Role Phone Ken Ortiz Unavailable DO Alice Polo Primary Care Provider DO Ken Ortiz Attending Provider [phone] TOMMIE Heller Emergency Provider [phone] DO Alice Polo Primary Care Provider DO Oswaldo Deleon Emergency Provider DO Alice Polo Attending Provider Dr. Alice Polo Primary Care [facility], Dr. Alice Qureshi Primary Care U [facility] Unavailable COREA ., DR ARNAV Martínez Attending Unavailable COREA ., DR ARNAV Martínez Admitting Unavailable COREA ., DR ARNAV Martínez Consulting Unavailable [facility] Primary Care Unavailable MAHMOOD ., JONI Consulting Unavailable COREA ., DR ARNAV Martínez Attending Unavailable COREA ., DR ARNAV Martínez Admitting Unavailable [facility] Primary Care Unavailable MAHMOOD ., JONI Consulting Unavailable COREA ., DR ARNAV Martínez Attending Unavailable COREA ., DR ARNAV Martínez Admitting Unavailable [facility] Primary Care Unavailable LAKSHMIPATHY ., NARENDRANATH Admitting [place] LAKSHMIP[place] ., NARENDRANATH Attending [place] v[place] [facility] Unavailable COREA ., DR ARNAV Martínez Consulting Unavailable COREA ., DR ARNAV Martínez Attending Unavailable COREA ., DR ARNAV Martínez Admitting Unavailable COREA ., DR ARNAV Martínez Attending Unavailable COREA ., DR ARNAV Martínez Admitting Unavailable MISC, DR SCHMIDT Consulting Unavailable LUNA EMERY, ALICE Primary Care Unavailable MAHMOOD ., JONI Consulting Unavailable MAHMOOD ., JONI Consulting Unavailable COREA ., DR ARNAV Martínez Attending Unavailable COREA ., DR ARNAV Martínez Admitting Unavailable LUNA EMERY, ALICE Primary Care Unavailable COREA ., DR ARNAV Martínez Consulting Unavailable COREA ., DR ARNAV Martínez Attending Unavailable COREA ., DR ARNAV Martínez Admitting Unavailable LUNA EMERY, ALICE Primary Care Unavailable CRISOSTOMOROLAN REED Consulting Unavailable LUNA [facility], ALICE Primary Care Unavailable MAHMOOD ., JONI Attending Unavailable MAHMOOD ., OJNI Admitting Unavailable ZIEBER, DR GENESIS Mo Consulting Unavailable MAHMOOD ., JONI Consulting Unavailable LUNA EMERY, ALICE Primary Care Unavailable MAHMOOD ., JONI Attending Unavailable MAHMOOD ., JONI Admitting Unavailable ZIEBER, DR GENESIS Mo Consulting Unavailable MAHMOOD ., JONI Consulting Unavailable MAHMOOD ., JONI Consulting Unavailable COREA ., DR ARNAV Martínez Attending Unavailable COREA ., DR ARNAV Martínez Admitting Unavailable LUNA EMERY, ALICE Primary Care Unavailable DO Alice Polo Primary Care Provider DO Oswaldo Deleon Emergency Provider DO Alice Polo Attending Provider [phone] DO Alice Polo Referring Provider [phone] MD Ken Mendez Attending Provider Edison Monroe Unavailable DO Alice Polo Primary Care Provider MD Edison Monroe Attending Provider CRISTEL Perez Attending Provider Gabe Gonzalez Unavailable Alice Polo DO Primary Care Provider DO Melani Alice Primary Care Provider MD Ken Mendez Attending Provider Luna-Alice Ferrer Primary Care Unavailable Ken Mendez Attending Unavailable Ken Mendez Admitting Unavailable Alix Perez Admitting Unavailable Luna-Alice Ferrer Primary Care Unavailable Alix Perez Attending Unavailable VISCI, PAUL Thakur Attending Unavailable VISCLeia, PAUL Thakur Attending Unavailable ALICE POLO Attending Unavailab le VISCI, PAUL Thakur Attending Unavailable VISCI, PAUL Thakur Attending Unavailable ALICE POLO Referring Unavailab chantel DIDRAQUEL GA Attending Unavailable DIDRAQUEL GA Referring Unavailable VISCLeia, PAUL Thakur Attending Unavailable ALICE POLO Referring Unavailab chantel DIDRAQUEL GA Attending Unavailable VISCI, PAUL Thakur Attending Unavailable Allergies Allergy Classification Reported Allergen(s) Allergy Type Date of Onset Reaction(s) Facility (1 source) Sulfonamides (Antibiotic) Drug allergy (disorder) [facility] (2 sources) Sulfonamides (Antibiotic); Translations: [Sulfa (Sulfonamide Antibiotics)] Allergy to substance 3 Hives [facility] (3 sources) Sulfonamides (Antibiotic) Drug Allergy 3 Hives, Rash [facility] Encounters Encounter Date Encounter Type Care Provider Facility Start: 09-29-2023 End: 09-29-2023 ambulatory ALICE POLO Not Available Start: 08-27-2023 End: 08-27-2023 Patient encounter procedure DO Alice Polo Work Phone: [facility] Work Phone: Start: 08-27-2023 End: 08-27-2023 ambulatory DO Ailce Polo Work Phone: [facility] Work Phone: Start: 07-31-2023 End: 07-31-2023 ambulatory [facility] Work Phone: Start: 07-31-2023 End: 07-31-2023 Patient encounter procedure [facility] Sleep Lab Work Phone: Start: 07-16-2023 End: 07-16-2023 ambulatory PAUL Thakur VISCLeia Not Available Start: 07-11-2023 End: 07-11-2023 ambulatory [facility] Work Phone: Start: 07-11-2023 End: 07-11-2023 Patient encounter procedure [facility] Physician [facility] Gastroenterology Work Phone: Start: 06-09-2023 End: 06-09-2023 ambulatory RAQUEL ALFONSO Not Available Start: 06-02-2023 End: 06-02-2023 ambulatory PAUL A VISCI Not Available Start: 05-08-2023 End: 05-08-2023 Office outpatient visit 15 minutes Paul A Visci DO Work Phone: [facility] Comment on above: Body mass index (BMI ) 28.0-28.9, adult; Abnormal weight gain; Yeast infection; BMI 29.0-29.9,adult Start: 05-08-2023 End: 05-08-2023 ambulatory PAUL A VISCI Not Available Start: 04-24-2023 End: 04-24-2023 Patient encounter status Alice Polo DO Work Phone: [facility] Work Phone: Start: 04-24-2023 End: 04-24-2023 Periodic preventive med est patient 40-64yrs Alice Polo DO Work Phone: [facility] [place] Comment on above: Encounter for preven tative adult health care examination (Primary Dx); Arthritis, lumbar spine; Depression, major, in remission (HCC) ([facility]/HCC); Gastroesophageal reflux disease without esophagitis; Postmenopausal; Hormone replacement therapy; Class 1 obesity Start: 04-24-2023 End: 04-24-2023 ambulatory ALICE POLO Not Available Start: 03-31-2023 End: 03-31-2023 ambulatory PAUL A VISCI Not Available Start: 03-06-2023 End: 03-06-2023 ambulatory PAUL A VISCI Not Available Start: 02-06-2023 End: 02-06-2023 ambulatory PAUL A VISCI Not Available Start: 12-09-2022 End: 12-09-2022 ambulatory Gabe Gonzalez Other [employer] Other Start: 12-09-2022 Office outpatient visit 15 minutes Gabe LOJA Gastroenterology Start: 09-26-2022 End: 09-26-2022 Patient encounter procedure DO Alice [place] Work Phone: [facility]Sleep Lab Work Phone: Start: 09-26-2022 End: 09-26-2022 ambulatory DO Alicera Luna[place] Work Phone: [facility] Work Phone: Start: 09-04-2022 End: 09-04-2022 ambulatory Edison Monroe Other [employer] Other Start: 09-04-2022 Telephone encounter Edison HAHN G Gastroenterology Start: 09-03-2022 End: 09-03-2022 Admission to same day surgery center DO Alicera [place] Work Phone: [facility]Digestive [facility] Work Phone: Start: 08-29-2022 ambulatory ALICE CURTISMaci Fac ility:H1 Start: 06-12-2022 End: 06-12-2022 ambulatory DO Alice [place] Work Phone: [facility] Work Phone: Start: 06-12-2022 End: 06-12-2022 Patient encounter procedure DO Alice Luna-[place]ot Work Phone: [facility]Sleep Lab Work Phone: Start: 05-30-2022 End: 05-31-2022 ambulatory ALICE FERRER Facility: Start: 05-21-[address] Alice Polo Facility:[facility] Start: 05-14-2022 End: 05-14-2022 ambulatory ALICE FERRER Facility: Start: 05-10-[address] Alice Polo Facility:[id number] Start: 05-07-2022 End: 05-07-2022 ambulatory DO Alice Krausaver-[place] Work Phone: [facility] Work Phone: Start: 05-07-2022 End: 05-07-2022 Patient encounter procedure DO Alice Luna-[place] Work Phone: [facility]Electrodiagnostics Work Phone: Start: 05-02-2022 End: 05-02-2022 Emergency department patient visit DO Alice Luna-[place]ot Work Phone: [facility]-Emergency Room Work Phone: Start: 05-02-2022 End: 05-03-2022 ambulatory ALICE LUNA EMERY Facility:H1 Start: 04-16-2022 End: 04-16-2022 ambulatory ALICE LUAN EMERY Facility:H1 Start: 02-07-2022 End: 02-08-2022 ambulatory ALICE LUNA EMERY Facility:H1 Start: 11-15-2021 End: 11-16-2021 ambulatory JONI MAHMOOD . Facility:H1 Start: 11-09-2021 End: 11-09-2021 Emergency department patient visit DO Alice Polo Work Phone: [facility]-Emergency Room Start: 10-16-2021 End: 10-16-[address] ARNAV COREA . Facility:H1 Start: 10-11-2021 End: 10-11-2021 ambulatory Ken Ortiz Other [employer] Other Start: 10-11-2021 Telephone encounter Ken Ortiz [facility] Start: 10-04-2021 End: 10-04-2021 Patient encounter procedure DO Alice Luna-Eliot Work Phone: [facility] [place] Start: 10-03-2021 End: 10-03-2021 ambulatory Ken Ortiz Other [employer] Other Start: 10-03-2021 Telephone encounter Ken Ortiz [facility] Gastroenterology Start: 09-20-2021 End: 09-21-2021 ambulatory JONI MAHMOOD . Facility: Start: 02-26-2021 End: 02-26-2021 ambulatory Ken Ortiz Other [employer] Other Start: 02-26-2021 Telephone encounter Ken Ortiz [facility] Gastroenterology Start: 12-20-2020 Office outpatient visit 25 minutes Ken Ortiz [facility] Gastroenterology Medical Equipment Procedure Code Equipment Code Equipment Origin al Text Equipment Identifier Dates Tendon repair Tendon/ligament bone anchor, non-bioabsorbable [id number] [facility] Start: 12-10-2018 Goals Date Patient Goal Desired Activity /State Immunizations Immunization Date Immunization Notes Care Provider Fa [facility] 12-25-2022 RSV, recombinant, protein subunit RSVpreF, adjuvant reconstitu, 120mcg/0.5mL, PF (Arexvy) Alice Luna-[place] DO Work Phone: [facility] 05-28-2021 zoster vaccine recombinant Alice Luna[place] DO Work Phone: [facility] 02-07-2021 zoster vaccine recombinant Alice Luna[place] DO Work Phone: [facility] 06-29-2020 COVID-19 mRNA, Comirnaty (Pfizer) DO Alice [place] Work Phone: [facility] 06-09-2020 COVID-19 mRNA, Comirnaty (Pfizer) DO Alice [place] Work Phone: [facility] 06-29-2015 tetanus toxoid, redu yoselin diphtheria toxoid, and acellular pertussis vaccine, adsorbed Alice Luna-[place] DO Work Phone: [facility] Medications Current Medications Medication Drug Class(es) Dates [...] 2023 12:00am take 1 capsule by mo cth every twenty-four hours as needed CeleBREX 200 [...] 2022 12:15pm take 1 tablet by vishal every twenty-four hours CeleXA 10 MG 1 [...] 05/08/2023 06/07/2023 Active take 1 capsule by [facility] every twenty-four hours Adipex-P 37.5 MG 1 [...] every four to six hours Hydrocodone-Acetami nophen (Hallett) 5-325 mg tablet Discontinued 1 - 2 TAB PO EVERY 4-6 HOURS 50 7 December 10, 2018 December 10, 2018 10:44am Start: 12-10-2018 End: 12-10-2018 take 1 tablet by mouth every four to six hours Hydrocodone-Acetaminophen (Hallett) 5-325 mg tablet Discontinued 1 - 2 TAB PO EVERY 4-6 HOURS 50 7 December 10, 2018 December 10, 2018 10:44am Start: 12-10-2018 End: 12-10-2018 take 1 tablet by mouth every four to six hours Hydrocodone-Acetaminophen (Hallett) 5-325 mg tablet Discontinued 1 - 2 TAB PO EVERY 4-6 HOURS 50 7 December 10, 2018 December 10, 2018 10:44am Start: 12-10-2018 End: 12-10-2018 take 1 tablet by mouth every four to six hours Hydrocodone-Acetaminophen (Hallett) 5-325 mg tablet Discontinued 1 - 2 TAB PO EVERY 4-6 HOURS 50 7 December 10, 2018 December 10, 2018 10:44am Start: 12-10-2018 End: 12-10-2018 take 1 tablet by mouth every four to six hours Hydrocodone-Acetaminophen (Hallett) 5-325 mg tablet Discontinued 1 - 2 TAB PO EVERY 4-6 HOURS 50 7 December 10, 2018 December 10, 2018 10:44am Start: 12-10-2018 End: 12-10-2018 take 1 tablet by mouth every four to six hours Hydrocodone-Acetaminophen (Hallett) 5-325 mg tablet Discontinued 1 - 2 TAB PO EVERY 4-6 HOURS 50 December 10, 2018 December 10, 2018 9:44am Start: 12-10-2018 End: 12-10-2018 take 1 tablet by mouth every four to six hours Hydrocodone-Acetaminophen (Hallett) 5-325 mg tablet Discontinued 1 - 2 TAB PO EVERY 4-6 HOURS 50 December 10, 2018 December 10, 2018 9:44am Start: 12-10-2018 End: 12-10-2018 take 1 tablet by mouth every four to six hours Hydrocodone-Acetaminophen (Hallett) 5-325 mg tablet Discontinued 1 - 2 TAB PO EVERY 4-6 HOURS 50 December 10, 2018 December 10, 2018 10:44am Start: 04-27-2018 End: 12-10-2018 take 1 tablet by mouth every four to six hours Hydrocodone-Acetaminophen (Hallett) 5-325 mg tablet Discontinued 1 - 2 [...] Hyclate Discontinued 100 MG PO Twice daily 12 26December 10, 2018 12:00am December 10, 2018 10:44am [...] 11-03-2018 Kenalog -40 mg Oct, 40 mg Payers Date Payer Category Payer Self-pay [id number] 2020 Medicaid [employer] [place] [id number] 2020-Present [address] [place] [address] [id number] 1960 Unknown [id number] 2.16.840.1.427611.3.579.2. 356 1960 Unknown [id number] 2.16.840.1.314100.3.579.2. 593 1960 Unknown [id number] 2.16.840.1.831353.3.579.2. 593 1960 Unknown [id number] 2.16.840.1.582572.3.579.2. 593 1960 Unknown [id number] 2.16.840.1.848861.3.579.2. 593 1960 Unknown [id number] 2.16.840.1.249686.3.579.2. 593 1960 Unknown [id number] 2.16.840.1.842907.3.579.2. 593 1960 Unknown [id number] 2.16.840.1.185741.3.579.2. 593 1960 Unknown [id number] 2.16.840.1.751446.3.579.2. 593 1960 Unknown [id number] 2.16.840.1.526432.3.579.2. 59 1960 Unknown [id number] 2.16.840.1.025931.3.579.2. 59 1960 Unknown [id number] 2.16.840.1.590503.3.579.2. 593 1962 Unknown [id number] 2.16.840.1.811641.3.579.2. 1258 1960 Unknown [id number] 2.16.840.1.463532.3.579.2. 1258 1960 Unknown [id number] 2.16.840.1.843444.3.579.2. 1258 1962 Unknown [id number] 2.16.840.1.649533.3.579.2. 1258 1960 Unknown [id number] 2.16.840.1.015092.3.579.2. 1258 1960 Unknown [id number] 2.16.840.1.778037.3.579.2. 125 1960 Unknown [id number] 2.16.840.1.193373.3.579.2. 125 1960 Unknown [id number] 2.16.840.1.366030.3.579.2. 1258 1962 Unknown [id number] 2.16.840.1.666843.3.579.2. 1258 1962 Unknown [id number] 2.16.840.1.203064.3.579.2. 1259 1957 Medicaid [id number] 1959 Unknown [id number] 2.16.840.1.002467.19 Private Health Insurance [id number] Unknown [place] BC/BS [id number] Unknown HCAP/HFA/FAP Active [id number] Unknown [id number] 2.16.840.1.120593.3.579.2. 531 Unknown [id number] 2.16.840.1.421246.3.579.2. 531 Plan of Treatment Date Care Activity Detail Author Start: 12-29-2030 Screening for malignant neoplasm of colon [facility] Start: 04-27-2024 End: 04-27-2024 Patient encounter procedure 04/27/2024 10:00 AM EST Office Visit [facility] [address] [place] [address] Alice Polo, DO [address] [place] [address] [facility] Start: 12-24-2023 Screening for malignant neoplasm of breast Mammogram [facility] Start: 04-28-2023 End: 04-28-2023 Patient encounter procedure 04/28/2023 9:30 AM EST Office Visit [facility] [address] [place] [address] Paul Disla, DO [address] [place], [place] [id number] BMI 29.0-29.9,adult [facility] Comment on above: BMI 29.0-29.9,adult Start: 09-03-2022 [facility] Start: 1960 Screening for malignant neoplasm of colon [facility] Patient Education [facility] Work Phone: Patient referral [facility] Work Phone: Problems Active Problems Problem Classification Problem Date [...] distension (gaseous) Onset: 2 Resolved: 2 Episodic Procedures Date Procedure Procedure Detail Performing Clinician Start: 12-23-2022 Mammography Alice Polo DO Work Phone: Start: 09-03-2022 Esophagogastroduodenoscopy DO Alice Polo Work Phone: Start: 05-02-2022 Plain chest X-ray DO Alice Polo Work Phone: Start: 11-09-2021 CT of facial bones without contrast DO S love Polo Work Phone: Start: 12-29-2020 Colonoscopy Alice Polo DO Work Phone: Results Test Name Value Interpretation Reference Range [...] aPTT Coag (PPP) [Time] 30.0 s 25.1-36.5 [facility] Basophils Auto (Bld) [#/Vol] Ordered By: Oswaldo Deleon on 05-02-2022 Basophils (Bld) [#/Vol] 0.0 10*3/uL 0.0-0.2 [facility] Basophils/100 WBC Auto (Bld) Ordered By: Oswaldo Deleon on 05-02-2022 Basophils/100 WBC (Bld) 0.7 % . [facility] Body fluid albumin measureme nt (mass/volume)Ordered By: Oswaldo Deleon on 05-02-2022 Albumin (Body fld) [Mass/Vol] 4.0 g/dL 3.2-5.5 [facility] Creatine kinase [Enzymatic a ctivity/volume] in Serum or PlasmaOrdered By: Oswaldo Deleon on 05-02-2022 CK [Catalytic activity/Vol] 50 U/L 22-269 [facility] Creatinine and Glomerular fi ltration rate.predicted panel (S/P/Bld)Ordered By: Oswaldo Deleon on 05-02-2022 Creatinine [Mass/Vol] 0.79 mg/dL 0.44-1.03 [facility] Eosinophils Auto (Bld) [#/Vo l]Ordered By: Oswaldo Deleon on 05-02-2022 Eosinophils (Bld) [#/Vol] 0.4 10*3/uL 0.0-0.45 [facility] Eosinophils/100 WBC Auto (Bl d)Ordered By: Oswaldo Deleon on 05-02-2022 Eosinophils/100 WBC (Bld) 4.9 % . [facility] Erythrocyte distribution wid th Auto (RBC) [Ratio]Ordered By: Oswaldo Deleon on 05-02-2022 Erythrocyte distribution width (RBC) [Ratio] 13.0 % 11.9-15.3 [facility] Estimated glomerular filtrat ion rate (GFR) non- AmericanOrdered By: Oswaldo Deleon on 05-02-2022 GFR/1.73 sq M.predicted among non-blacks MDRD (S/P/Bld) [Vol rate/Area] > 60 mL/Min [facility] Globulin Calc (S) [Mass/Vol] Ordered By: Oswaldo Deleon on 05-02-2022 Globulin (S) [Mass/Vol] 2.9 g/dL [facility] Hematocrit Auto (Bld) [Volum e fraction]Ordered By: Oswaldo Deleon on 05-02-2022 Hematocrit (Bld) [Volume fraction] 43.7 % 34.0-46.4 [facility] Hemoglobin [Mass/volume] in BloodOrdered By: Oswaldo Deleon on 05-02-2022 Hemoglobin (Bld) [Mass/Vol] 14.7 g/dL 11.8-15.4 [facility] Laboratory - Chemistry and C hemistry - challengeOrdered By: Oswaldo Deleon on 05-02-2022 Magnesium [Mass/Vol] 2.0 mg/dL 1.6-2.6 [facility] Laboratory - CoagulationOrde red By: Oswaldo Deleon on 05-02-2022 PT Coag (PPP) [Time] 11.6 s 9.0-12.9 [facility] Leukocytes [#/volume] correc nikhil for nucleated erythrocytes in Blood by Automated counOrdered By: Oswaldo Deleon on 05-02-2022 WBC corrected for nucl RBC Auto (Bld) [#/Vol] 7.4 10*3/uL 3.8-11.6 [facility] Lymphocytes Auto (Bld) [#/Vo l]Ordered By: Oswaldo Deleon on 05-02-2022 Lymphocytes (Bld) [#/Vol] 1.6 10*3/uL 1.00-4.8 [facility] Lymphocytes/100 WBC Auto (Bl d)Ordered By: Oswaldo Deleon on 05-02-2022 Lymphocytes/100 WBC (Bld) 22.0 % . [facility] MCH Auto (RBC) [Entitic mass ]Ordered By: Oswaldo Deleon on 05-02-2022 MCH (RBC) [Entitic mass] 30.0 pg 24.7-34.3 [facility] MCHC Auto (RBC) [Mass/Vol]Or dered By: Oswaldo Deleon on 05-02-2022 MCHC (RBC) [Mass/Vol] 33.7 g/dL 32.0-35.0 [facility] MCV Auto (RBC) [Entitic vol] Ordered By: Oswaldo Deleon on 05-02-2022 MCV (RBC) [Entitic vol] 88.9 fL 80-100 [facility] Monocyte distribution width [Entitic volume] in Blood by AutomatedOrdered By: Oswaldo Deleon on 05-02-2022 Monocyte distribution width Auto (Bld) [Entitic vol] 18.10 % 0.00-20.00 [facility] Monocytes Auto (Bld) [#/Vol] Ordered By: Oswaldo Deleon on 05-02-2022 Monocytes (Bld) [#/Vol] 0.8 10*3/uL 0.0-0.8 [facility] Monocytes/100 WBC Auto (Bld) Ordered By: Oswaldo Deleon on 05-02-2022 Monocytes/100 WBC (Bld) 10.2 % . [facility] Neutrophils Auto (Bld) [#/Vo l]Ordered By: Oswaldo Deleon on 05-02-2022 Neutrophils (Bld) [#/Vol] 4.6 10*3/uL 1.8-7.7 [facility] Neutrophils/100 WBC Auto (Bl d)Ordered By: Oswaldo Deleon on 05-02-2022 Neutrophils/100 WBC (Bld) 62.2 % . [facility] No Panel InformationOrdered By: Oswaldo Deleon on 05-02-2022 D-Dimer Quantitative (PE/DVT) < 200 ng/mL 0-243 [facility] Comment on above: The reference range [...] conditions. Estimated GFR () > 60 mL/Min [facility] Comment on above: GFR estimated refere nce range: According to KDOQI guidelines, <60 ml/min/1.73m2 is sufficient to diagnose a patient with chronic kidney disease. Pharmacy Creatinine Clearance (Chem 67.96 [facility] Nucleated erythrocytes [Pres ence] in Blood by Automated countOrdered By: Oswaldo Deleon on 05-02-2022 Nucleated RBC Auto Ql (Bld) 0.1 /100{WBC} 0-0.5 [facility] Platelet mean volume Auto (B ld) [Entitic vol]Ordered By: Oswaldo Deleon on 05-02-2022 Platelet mean volume (Bld) [Entitic vol] 8.7 fL 6.3-10.7 [facility] Platelet poor plasma interna tional normalized ratio (INR) by coagulation assay (relatOrdered By: Oswaldo Deleon on 05-02-2022 INR Coag (PPP) [Relative time] 1.0 {INR} [facility] Comment on above: INR Therapeutic Rang [...] 05-02-2022 Platelets (Bld) [#/Vol] 271 10*3/uL 150-450 [facility] Protein [Mass/volume] in Ser um or PlasmaOrdered By: Oswaldo Deleon on 05-02-2022 Protein [Mass/Vol] 6.9 g/dL 6.1-7.9 [facility] RBC Auto (Bld) [#/Vol]Ordere d By: Oswaldo Deleon on 05-02-2022 RBC (Bld) [#/Vol] 4.92 10*6/uL 3.60-5.00 [facility] Serum or plasma alanine reyna otransferase measurement without P-5'-P (enzymatic activiOrdered By: Oswaldo Deleon on 05-02-2022 ALT No additional P-5'-P [Catalytic activity/Vol] 21 U/L 10-60 [facility] Serum or plasma albumin/glob ulin mass ratioOrdered By: Oswaldo Deleon on 05-02-2022 Albumin/Globulin [Mass ratio] 1.4 {ratio} [facility] Serum or plasma alkaline raphael sphatase measurement (enzymatic activity/volume)Ordered By: Oswaldo Deleon on 05-02-2022 ALP [Catalytic activity/Vol] 56 U/L 32-92 [facility] Serum or plasma anion gap de terminationOrdered By: Oswaldo Deleon on 05-02-2022 Anion gap [Moles/Vol] 11.4 mmol/L 6.0-15.0 [facility] Serum or plasma aspartate am inotransferase measurement (enzymatic activity/volume)Ordered By: Oswaldo Deleon on 05-02-2022 AST [Catalytic activity/Vol] 20 U/L 10-42 [facility] Serum or plasma calcium shellie urement (mass/volume)Ordered By: Oswaldo Deleon on 05-02-2022 Calcium [Mass/Vol] 9.4 mg/dL 8.2-10.2 [facility] Serum or plasma chloride isidro surement (moles/volume)Ordered By: Oswaldo Deleon on 05-02-2022 Chloride [Moles/Vol] 100 mmol/L 95-114 [facility] Serum or plasma creatine kin ase MB (CKMB)/total creatine kinase (CK) ratio by calculaOrdered By: Oswaldo Deleon on 05-02-2022 CK.MB Calc [Catalytic fraction] 1.8 % 0.00-2.50 [facility] Serum or plasma creatine kin ase MB measurement (mass/volume)Ordered By: Oswaldo Deleon on 05-02-2022 CK.MB [Mass/Vol] 0.9 ng/mL 0.6-6.3 [facility] Serum or plasma glucose shellie urement (mass/volume)Ordered By: Oswaldo Deleon on 05-02-2022 Glucose [Mass/Vol] 87 mg/dL 70-100 [facility] Comment on above: ADA recommended refe rence rangeRandom Glucose Reference Range is dependent on time and content of last meal. Glucose of more than 200 mg/dL in a nonstressed, ambulatory subject supports the diagnosis of Diabetes Mellitus. Serum or plasma potassium me asurement (moles/volume)Ordered By: Oswaldo Deleon on 05-02-2022 Potassium [Moles/Vol] 3.9 mmol/L 3.5-5.1 [facility] Serum or plasma sodium measu rement (moles/volume)Ordered By: Oswaldo Deleon on 05-02-2022 Sodium [Moles/Vol] 135 mmol/L 136-146 [facility] Serum or plasma total biliru bin measurement (mass/volume)Ordered By: Oswaldo Deleon on 05-02-2022 Bilirubin [Mass/Vol] 0.5 mg/dL 0.3-1.2 [facility] Serum or plasma total carbon dioxide measurement (moles/volume)Ordered By: Oswaldo Deleon on 05-02-2022 CO2 [Moles/Vol] 27.5 mmol/L 22.0-30.0 [facility] Serum or plasma urea nitroge n measurement (mass/volume)Ordered By: Oswaldo Deleon on 05-02-2022 Urea nitrogen [Mass/Vol] 21 mg/dL 9-23 [facility] Troponin I.cardiac [Mass/vol ume] in Serum or Plasma by High sensitivity methodOrdered By: Oswaldo Deleon on 05-02-2022 Troponin I.cardiac High sensitivity method [Mass/Vol] 3 pg/mL 0-15 [facility] WBC Auto (Bld) [#/Vol]Ordere d By: Oswaldo Deleon on 05-02-2022 WBC (Bld) [#/Vol] 7.4 10*3/uL 3.8-11.6 [facility] XR TSPINE MIN 4 VIEWSon 11 XR [...] by: GENESIS BELLO Date: 2022-02-07 15:12 Normal [facility] SCREENING MAMMOGRAM W/NUPUR, BILATERAL*on 12-06-2021 [...] VERY IMPORTANT TO YOUR HEALTH. THE CURRENT [employer] COLLEGE OF RADIOLOGY AND NATIONAL COMPREHENSIVE CANCER NETWORK GUIDELINES RECOMMENDS ANNUAL MAMMOGRAPHY BEGINNING AT AGE 40 THIS FACILITY USES A REMINDER SYSTEM TO ENSURE ALL PATIENTS RECEIVE REMINDER NOTIFICATIONS AT THE APPROPRIATE TIME BASED ON THE RECOMMENDATIONS OF THIS EXAM. 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 Accredited by the ACR and FDA. Report reported and signed by Paulino Will on 12/06/2021 1003 Normal [facility] Alkylation Operator Basophils Auto (Bld) [#/Vol] Ordered By: Ken Ortiz on 10-04-2021 Basophils (Bld) [#/Vol] 0.0 10*3/uL 0.0-0.2 [facility] Basophils/100 WBC Auto (Bld) Ordered By: Ken Ortiz on 10-04-2021 Basophils/100 WBC (Bld) 0.7 % . [facility] Blood hemoglobin measurement (mass/volume)Ordered By: Ken Ortiz on 10-04-2021 Hemoglobin (Bld) [Mass/Vol] 14.6 g/dL 11.8-15.4 [facility] Blood leukocytes automated c ount (number/volume)Ordered By: Ken Ortiz on 10-04-2021 WBC (Bld) [#/Vol] 4.4 10*3/uL 4.5-11.0 [facility] Body fluid albumin measureme nt (mass/volume)Ordered By: Ken Ortiz on 10-04-2021 Albumin (Body fld) [Mass/Vol] 3.7 g/dL 3.2-5.5 [facility] C reactive protein [Mass/vol ume] in Serum or PlasmaOrdered By: Ken Ortiz on 10-04-2021 CRP [Mass/Vol] 0.6 mg/dL 0.0-1.0 [facility] Creatinine and Glomerular fi ltration rate.predicted panel (S/P/Bld)Ordered By: Ken Ortiz on 10-04-2021 Creatinine [Mass/Vol] 0.74 mg/dL 0.44-1.03 [facility] Elastase.pancreatic [Mass/ma ss] in StoolOrdered By: Ken Ortiz on 10-04-2021 Elastase.pancreatic (Stl) [Mass/Mass] >500 >200 [facility] Comment on above: Result Units: ug Luz st./g Severe Pancreatic Insufficiency: <100 Moderate Pancreatic Insufficiency: 100 - 200 Normal: >200 Performed at: [facility] [address] [id number] [place] [employer] Hand: Lamont Young MD, Phone: [phone] Eosinophils Auto (Bld) [#/Vo l]Ordered By: Ken Ortiz on 10-04-2021 Eosinophils (Bld) [#/Vol] 0.2 10*3/uL 0.0-0.45 [facility] Eosinophils/100 WBC Auto (Bl d)Ordered By: Ken Ortiz on 10-04-2021 Eosinophils/100 WBC (Bld) 5.2 % . [facility] Erythrocyte distribution wid th Auto (RBC) [Ratio]Ordered By: Ken Ortiz on 10-04-2021 Erythrocyte distribution width (RBC) [Ratio] 13.1 % 11.9-15.3 [facility] Erythrocyte sedimentation ra te by Photometric methodOrdered By: Ken Ortiz on 10-04-2021 ESR Photometric method (Bld) [Velocity] 5 mm/hr 0-29 [facility] Estimated glomerular filtrat ion rate (GFR) non- AmericanOrdered By: Ken Ortiz on 10-04-2021 GFR/1.73 sq M.predicted among non-blacks MDRD (S/P/Bld) [Vol rate/Area] > 60 mL/Min [facility] Globulin Calc (S) [Mass/Vol] Ordered By: Ken Ortiz on 10-04-2021 Globulin (S) [Mass/Vol] 2.5 g/dL [facility] Hematocrit Auto (Bld) [Volum e fraction]Ordered By: Ken Ortiz on 10-04-2021 Hematocrit (Bld) [Volume fraction] 43.7 % 34.0-46.4 [facility] IgA [Mass/volume] in Serum o r PlasmaOrdered By: Ken Ortiz on 10-04-2021 IgA [Mass/Vol] 168 mg/dL 87-352 [facility] Comment on above: Performed at: [place] [id number] [employer] Hand: Kevin Sanders PhD, Phone: [phone] Laboratory - Hematology and Cell countsOrdered By: Ken Ortiz on 10-04-2021 Nucleated RBC/100 WBC (Bld) [Ratio] 0.0 % 0-0.5 [facility] Lymphocytes Auto (Bld) [#/Vo l]Ordered By: Ken Ortiz on 10-04-2021 Lymphocytes (Bld) [#/Vol] 1.5 10*3/uL 1.00-4.8 [facility] Lymphocytes/100 WBC Auto (Bl d)Ordered By: eKn Ortiz on 10-04-2021 Lymphocytes/100 WBC (Bld) 34.1 % . [facility] MCH Auto (RBC) [Entitic mass ]Ordered By: Ken Ortiz on 10-04-2021 MCH (RBC) [Entitic mass] 29.8 pg 24.7-34.3 [facility] MCHC Auto (RBC) [Mass/Vol]Or dered By: Ken Ortiz on 10-04-2021 MCHC (RBC) [Mass/Vol] 33.5 g/dL 32.0-35.0 [facility] MCV Auto (RBC) [Entitic vol] Ordered By: Ken Ortiz on 10-04-2021 MCV (RBC) [Entitic vol] 88.9 fL 80-100 [facility] Monocytes Auto (Bld) [#/Vol] Ordered By: Ken Ortiz on 10-04-2021 Monocytes (Bld) [#/Vol] 0.4 10*3/uL 0.0-0.8 [facility] Monocytes/100 WBC Auto (Bld) Ordered By: Ken Ortiz on 10-04-2021 Monocytes/100 WBC (Bld) 8.1 % . [facility] Neutrophils Auto (Bld) [#/Vo l]Ordered By: Ken Ortiz on 10-04-2021 Neutrophils (Bld) [#/Vol] 2.3 10*3/uL 1.8-7.7 [facility] Neutrophils/100 WBC Auto (Bl d)Ordered By: Ken Ortiz on 10-04-2021 Neutrophils/100 WBC (Bld) 51.9 % . [facility] No Panel InformationOrdered By: Ken Ortiz on 10-04-2021 Endomysial IgA Antibody Negative Negative [facility] Estimated GFR () > 60 mL/Min [facility] Comment on above: GFR estimated refere nce range: According to KDOQI guidelines, <60 ml/min/1.73m2 is sufficient to diagnose a patient with chronic kidney disease. Pharmacy Creatinine Clearance (Chem N/A [facility] Platelet mean volume Auto (B ld) [Entitic vol]Ordered By: Ken Ortiz on 10-04-2021 Platelet mean volume (Bld) [Entitic vol] 9.2 fL 6.3-10.7 [facility] Platelets Auto (Bld) [#/Vol] Ordered By: Ken Ortiz on 10-04-2021 Platelets (Bld) [#/Vol] 286 10*3/uL 150-450 [facility] Protein [Mass/volume] in Ser um or PlasmaOrdered By: Ken Ortiz on 10-04-2021 Protein [Mass/Vol] 6.2 g/dL 6.1-7.9 [facility] RBC Auto (Bld) [#/Vol]Ordere d By: Ken Ortiz on 10-04-2021 RBC (Bld) [#/Vol] 4.92 10*6/uL 3.60-5.00 [facility] Serum gliadin peptide IgA an tibody assay (units/volume)Ordered By: Ken Ortiz on 10-04-2021 Gliadin peptide IgA Qn (S) 4 units 0-19 [facility] Comment on above: Negative 0 - 19 Weak Positive 20 - 30 Moderate to Strong Positive >30 Serum gliadin peptide IgG an tibody assay (units/volume)Ordered By: Ken Ortiz on 10-04-2021 Gliadin peptide IgG Qn (S) 2 units 0-19 [facility] Comment on above: Negative 0 - 19 Weak Positive 20 - 30 Moderate to Strong Positive >30 Serum or plasma alanine reyna otransferase measurement without P-5'-P (enzymatic activiOrdered By: Ken Ortiz on 10-04-2021 ALT No additional P-5'-P [Catalytic activity/Vol] 16 U/L 10-60 [facility] Serum or plasma albumin/glob ulin mass ratioOrdered By: Ken Ortiz on 10-04-2021 Albumin/Globulin [Mass ratio] 1.5 {ratio} [facility] Serum or plasma alkaline raphael sphatase measurement (enzymatic activity/volume)Ordered By: Ken Ortiz on 10-04-2021 ALP [Catalytic activity/Vol] 55 U/L 32-92 [facility] Serum or plasma aspartate am inotransferase measurement (enzymatic activity/volume)Ordered By: Ken Ortiz on 10-04-2021 AST [Catalytic activity/Vol] 18 U/L 10-42 [facility] Serum or plasma calcium shellie urement (mass/volume)Ordered By: Ken Ortiz on 10-04-2021 Calcium [Mass/Vol] 9.7 mg/dL 8.2-10.2 [facility] Serum or plasma chloride isidro surement (moles/volume)Ordered By: Ken Ortiz on 10-04-2021 Chloride [Moles/Vol] 101 mmol/L 95-114 [facility] Serum or plasma glucose shellie urement (mass/volume)Ordered By: Ken Ortiz on 10-04-2021 Glucose [Mass/Vol] 85 mg/dL 70-100 [facility] Comment on above: ADA recommended refe rence range Random Glucose Reference Range is dependent on time and content of last meal. Glucose of more than 200 mg/dL in a nonstressed, ambulatory subject supports the diagnosis of Diabetes Mellitus. Serum or plasma potassium me asurement (moles/volume)Ordered By: Ken Ortiz on 10-04-2021 Potassium [Moles/Vol] 4.4 mmol/L 3.5-5.1 [facility] Serum or plasma sodium measu rement (moles/volume)Ordered By: Ken Ortiz on 10-04-2021 Sodium [Moles/Vol] 138 mmol/L 136-146 [facility] Serum or plasma total biliru bin measurement (mass/volume)Ordered By: Ken Ortiz on 10-04-2021 Bilirubin [Mass/Vol] 0.5 mg/dL 0.3-1.2 [facility] Serum or plasma total carbon dioxide measurement (moles/volume)Ordered By: Ken Ortiz on 10-04-2021 CO2 [Moles/Vol] 30.4 mmol/L 22.0-30.0 [facility] Serum or plasma urea nitroge n measurement (mass/volume)Ordered By: Ken Ortiz on 10-04-2021 Urea nitrogen [Mass/Vol] 13 mg/dL 9-23 [facility] Serum tissue transglutaminas e (tTG) IgA antibody assay (units/volume)Ordered By: Ken Ortiz on 10-04-2021 tTG IgA Qn (S) <2 U/mL 0-3 [facility] Comment on above: Negative 0 - 3 Weak Positive 4 - 10 Positive >10 Tissue Transglutaminase (tTG) has been identified as the endomysial antigen. Studies have demonstr- ated that endomysial IgA antibodies have over 99% specificity for gluten sensitive enteropathy. Serum tissue transglutaminas e (tTG) IgG antibody assay (units/volume)Ordered By: Ken Ortiz on 10-04-2021 tTG IgG Qn (S) <2 U/mL 0-5 [facility] Comment on above: Negative 0 - 5 Weak Positive 6 - 9 Positive >9 Social History Date Type Detail Facility Start: 04-27-2023 End: 05-05-2023 Alcohol intake Current drinker of alcohol (finding) [facility] Start: 04-24-2023 End: 05-05-2023 Sex Assigned At [facility] Work Phone: Start: 04-24-2023 End: 05-05-2023 History of Social function [facility] Work Phone: Start: 04-24-2023 Alcohol Comment Once a week [facility] Start: 01-08-2023 Tobacco use and exposure Smokeless tobacco non-user [facility] Start: 12-04-2022 Gender identity Identifies as female gender (finding) [facility] Start: 05-02-2022 End: 09-03-2022 Tobacco smoking status [facility] Ex-smoker (finding) [facility] Start: 11-09-2021 Tobacco smoking stat us [facility] Never smoked tobacco (finding) [facility] Start: 1960 Sex Assigned At Female F [facility] End: 03-24-2012 History of tobacco use Current smoker [facility] End: 03-24-2012 History of tobacco use Cigarette Smoker [facility] How often to you hav e a drink containing alcohol? 2-3 time sa week [facility] Work Phone: How many standard drinks containing alcohol do you have on a typical day? 1 or 2 [facility] How often do you hav e 6 or more drinks on 1 occasion? Never [facility] Vital Signs Date Time Vital Sign Value Performing Clinician Facility 07-31-2023 08:37-0400 Body height 152.4 cm [facility] 07-31-2023 08:37-0400 Body mass index (BMI) [Ratio] 27.3 kg/m2 [facility] 07-31-2023 08:37-0400 Body weight 63.5 kg [facility] 07-31-2023 08:37-0400 Diastolic blood pressure 77 mm[Hg] [facility] 07-31-2023 08:37-0400 Heart rate 71 /min [facility] 07-31-2023 08:37-0400 SaO2% (BldA) [Mass fraction] 99 % [facility] 07-31-2023 08:37-0400 Systolic blood pressure 136 mm[Hg] [facility] 07-11-2023 10:22-0400 Body height 152.4 cm [facility] 07-11-2023 10:22-0400 Body mass index (BMI) [Ratio] 28.2 kg/m2 [facility] 07-11-2023 10:22-0400 Body weight 65.48 kg [facility] 07-11-2023 10:22-0400 Diastolic blood pressure 81 mm[Hg] [facility] 07-11-2023 10:22-0400 Heart rate 67 /min [facility] 07-11-2023 10:22-0400 Systolic blood pressure 146 mm[Hg] [facility] 05-08-2023 14:36-0500 Body height 152.4 cm Paul Visci DO Work Phone: [facility] 05-08-2023 14:36-0500 Body mass index (BMI) [Ratio] 28.32 kg/m2 Paul Visci DO Work Phone: [facility] 05-08-2023 14:36-0500 Body weight 65.77 kg Paul Visci DO Work Phone: [facility] 05-08-2023 14:36-0500 Diastolic blood pressure 84 mm[Hg] Paul Visci DO Work Phone: [facility] 05-08-2023 14:36-0500 Systolic blood pressure 124 mm[Hg] Paul Visci DO Work Phone: [facility] 04-24-2023 10:05-0500 Body mass index (BMI) [Ratio] 28.55 kg/m2 Alice Luna-Knightstown DO Work Phone: [facility] [employer] 04-24-2023 10:05-0500 Body weight 66.32 kg Alice Luna-[place] DO Work Phone: [facility] 04-24-2023 10:05-0500 Diastolic blood pressure 64 mm[Hg] Alice Luna-[place] DO Work Phone: [facility] 04-24-2023 10:05-0500 Heart rate 64 /min Alice Luna-K[place] DO Work Phone: [facility] 04-24-2023 10:05-0500 SaO2% (BldA) [Mass fraction] 98 % Alice Luna-K[place] DO Work Phone: [facility] 04-24-2023 10:05-0500 Systolic blood pressure 112 mm[Hg] Alice Luna-K[place] DO Work Phone: [facility] 12-09-2022 10:00-0400 Body height 152.4 cm Gabe Gonzalez Other [employer] Other 12-09-2022 10:00-0400 Body mass index (BMI) [Ratio] 32.22 kg/m2 Gabe Gonzalez Other [employer] Other 12-09-2022 10:00-0400 Body weight 74.84 kg Gabe Gonzalez Other [employer] Other 12-09-2022 10:00-0400 Diastolic blood pressure 81 mm[Hg] Gabe Gonzalez Other [employer] Other 12-09-2022 10:00-0400 Systolic blood pressure 129 mm[Hg] Gabe Gonzalez Other [employer] Other 09-03-2022 13:50-0400 Diastolic blood pressure 79 mm[Hg] DO Alice Luna-Knightstown Work Phone: [facility] 09-03-2022 13:50-0400 Heart rate 56 /min DO Alice Luna-K[place] Work Phone: [facility] 09-03-2022 13:50-0400 SaO2% (BldA) [Mass fraction] 100 % DO Alice Luna-K[place]stown Work Phone: [facility] 09-03-2022 13:50-0400 Systolic blood pressure 125 mm[Hg] DO Alice Luna-Knightstown Work Phone: [facility] 09-03-2022 12:25-0400 Body height 152.4 cm DO Alice Luna-[place] Work Phone: [facility] 09-03-2022 12:25-0400 Body temperature 97.9 [degF] DO Alice Luna-K[place]stown Work Phone: [facility] 09-03-2022 12:25-0400 Body weight 72.12 kg DO Alice Luna-[place] Work Phone: [facility] 09-03-2022 12:25-0400 Respiratory rate 16 /min DO Alice Luna-[place] Work Phone: [facility] 05-02-2022 20:00-0500 Diastolic blood pressure 86 mm[Hg] DO Alice Luna-Knightstown Work Phone: [facility] 05-02-2022 20:00-0500 Heart rate 66 /min DO Alice Luna-[place] Work Phone: [facility] 05-02-2022 20:00-0500 Respiratory rate 20 /min DO Alice Luna-[place] Work Phone: [facility] 05-02-2022 20:00-0500 SaO2% (BldA) [Mass fraction] 99 % DO Alice Luna-K[place] Work Phone: [facility] 05-02-2022 20:00-0500 Systolic blood pressure 137 mm[Hg] DO Alice Luna-[place] Work Phone: [facility] 05-02-2022 16:29-0500 Body height 152.4 cm DO Alice Luna-[place] Work Phone: [facility] 05-02-2022 16:29-0500 Body temperature 97.5 [degF] DO Alice Luna-[place]stown Work Phone: [facility] 05-02-2022 16:29-0500 Body weight 72.12 kg DO Alice Luna-[place] Work Phone: [facility] 11-09-2021 13:34-0400 Body height 152.4 cm DO Alice Luna-[place] Work Phone: [facility] 11-09-2021 13:34-0400 Body temperature 98 [degF] DO Alice Luna-K[place] Work Phone: [facility] 11-09-2021 13:34-0400 Body weight 71 kg DO Alice Luna-[place] Work Phone: [facility] 11-09-2021 13:34-0400 Diastolic blood pressure 80 mm[Hg] DO Alice Luna-Knightstown Work Phone: [facility] 11-09-2021 13:34-0400 Heart rate 78 /min DO Alice Luna-[place]stown Work Phone: [facility] 11-09-2021 13:34-0400 Respiratory rate 18 /min DO Alice Luna-K[place]stown Work Phone: [facility] 11-09-2021 13:34-0400 SaO2% (BldA) [Mass fraction] 97 % DO Alice Luna-Knightstown Work Phone: [facility] 11-09-2021 13:34-0400 Systolic blood pressure 187 mm[Hg] DO Alice Polo Work Phone: [facility] 12-20-2020 14:15-0400 Body height 152.4 cm Ken Ortiz Other [employer] Other 12-20-2020 14:15-0400 Body mass index (BMI) [Ratio] 31.05 kg/m2 Ken Ortiz Other [employer] Other 12-20-2020 14:15-040 Body weight 72.12 kg Ken Ortiz Other [employer] Other Clinical Notes 12-20-2020 to 05-08-2023 Paul Disla, DO - 05/08/2023 2:30 PM ESTSandra Keven [...] per pt. COLONOSCOPY 12/29/2020 Normal EGD 10/31/2015 EGD/[place] done by Dr. Ortiz (stenosis of upper [...] ablation, diag lap - Disease: Menorrhagia (Dr. Disla) IR ABLATION NERVE Bilateral 2020 Lumbar never [...] Laparoscopy for pelvic pain (Dr. Smith) - 20' RADIOFREQUENCY ABLATION Right 01/28/2023 Lumbar 4/5 and L5/S1. Done by Dr Maldonado RHIZOTOMY W/ RADIOFREQUENCY ABLATION Left 01/07/2023 L4/5 and L5/S1 done [address] Dr Maldonado TONSILLECTOMY [address] Ba WISDOM TOOTH EXTRACTION 1981 [place] teeth impacted Family History Problem Relation Name Age of Onset Depression Mother Michela Cardenastt,Ken Garrett(father), Ronni Garrett (b Hyperthyroidism Mother Michela Garrett,Ken [...] Severe Depression Heart attack Paternal Grandfather Acute [place] No Known Problems Daughter Healthy Ulcerative colitis [...] vaginitis-Rx diflucan. documented in this encounter [facility] 04-27-2023 History of Presen t illness [...] Associated Problem(s): Depression, major, in remission (HCC) ([facility]) -Pt is doing well at this time [...] . Postmenopausal Depression, major, in remission (HCC) ([facility]) Overview Prescribed citalopram Current Assessment & Plan -Pt is doing well at this time on current dose of celexa. Based on review of patient's medications and current medical status; continuation of medications most appropriate. Compliance with medications and/or management recommendations encouraged. Monitor Hormone replacement therapy Overview Prescribed estradiol 0.5 mg daily by [employer]ER/Dr Disla Other Visit Diagnoses Encounter for preventative adult [...] Annual Physical. 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 SHE REPORTS MAYBE ONCE A WEEK WITH A FLARE OF SYMPTOMS. PATIENT CAN USE PEPCID OTC OR TUMS. [employer] Other 03-09-2023 NoteCONSULTATION CONSULTATION DATE: 05/30/2022 HISTORY [...] for re-evaluation. Patient agrees with this plan.The [address]09-2023 NotePROCEDURE: XR HIP LT 2 3V WO [...] authenticated by: GENESIS BELLO Date: 2022-05-02 14:36[facility] [id number] NoteCONSULTATION CONSULTATION DATE: 05/02/2022 HISTORY OF PRESENT [...] completed 10 treatments of physical therapy in [place]. The patient does state, at the end [...] followed up in the office post procedure.[facility] [id number] NoteCONSULTATION CONSULTATION DATE: 02/07/2022 HISTORY OF PRESENT [...] review her thoracic x-ray at that time.[facility] [id number] NoteCONSULTATION CONSULTATION DATE: 11/15/2021 This is a [...] indicated. The patient does agree to this.[facility] [id number] Evaluation note* Encounter Date Diagnosis Assessment Notes Treatment Notes Treatment Clinical Notes Sep, Irritable bowel syndrome with both constipation and diarrhea (ICD-10 - K58.2) Sep, GERD (gastroesophageal reflux disease) (ICD-10 - K21.9) Sep, Bloating (ICD-10 - R14.0) [facility] Other 06-30-2022 NoteCONSULTATION CONSULTATION DATE: 09/20/2021 This [...] She has been missing days at the rn occupational recently due to her pain. She describes [...] be followed up it the clinic post-procedure. [facility] Signed and Approved by: JONI MAHMOOD . 09/27/2021 16:26:00[facility]12-06-2021 Evaluation note* Encounter Date Diagnosis Assessment Notes Treatment Notes Treatment Clinical Notes Feb, GERD (gastroesophageal reflux disease) (ICD-10 - K21.9) [facility] Other 09-29-2021 Evaluation note* Encounter Date Diagnosis Assessment Notes Treatment Notes Treatment Clinical Notes Nov, GERD (gastroesophage al reflux disease) (ICD-10 - K21.9) GERD home care material was printed EGD START CARAFATE 1 GRAM TID Nov, Irritable bowel synd john with both constipation and diarrhea (ICD-10 - K58.2) Nov, Pharyngoesophageal dysphagia (ICD-10 - R13.14) [facility] Other Evaluation noteNo InformationNort [employer] Other Evaluation noteNo assessment information available [facility] Work Phone: Evaluation note* Diagnosis Encounter for preventative adult health care examination- Primary Arthritis, lumbar spine Depression, major, in remission (HCC) ([facility]/HCC) Gastroesophageal reflux disease without esophagitis Esophageal reflux Postmenopausal Asymptomatic postmenopausal status (age-related) (natural) Hormone replacement therapy Class 1 obesity BMI 29.0-29.9,adult documented in this encounter [facility] HealthcareEvaluation note* Diagnosis Body mass index (BMI) 28.0-28.9, adult Abnormal weight gain Yeast infection BMI 29.0-29.9,adult documented in this encounter [facility] HealthcareEvaluation note* Diagnosis Onset Date Resolution Status GERD (gastroesophageal reflux disease) acute [facility] Work Phone: evaluation note* Diagnosis Onset Date Resolution Status GERD (gastroesophageal reflux disease) acute BMI 27.0-27.9,adult acute Chronic intermittent hypoxia with obstructive sleep apnea acute GERD (gastroesophageal reflux disease) acute Intolerance to BiPAP/CPAP ac maura Obstructive sleep apnea acut e [facility] Work Phone: Hisrjzl general Narrative - Reported* Type Description Date Medical History Gastroesophageal Reflux Disease Medical History Anxiety/Depression Medical History seasonal asthma Surgical History Caesarean Section X 3 Surgical History Tonsillectomy/Adenoidectomy Surgical History Laparoscopy Surgical History Hysteroscopy/Endometrial Ablati on Surgical History Laparoscopy Cholecystectomy Surgical History [facility] tenton interposition Arthro plasty 2019 Hospitalization History See Above [employer] Other Hisqlvc general Narrative - ReportedNoOncoSec Medical Other Hisqfej general Narrative - Reported* Type Description Date [...] History ablasion-LUMBAR NERVE Hospitalization History See Above [facility] Other Hospital Discharge instructions Additional Instructions Follow up with your primary care doctor Return to the ED If you develop worsening symptoms or concerns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 Relationship Specialty Start Date End Date MarkEliot Alice D, DO [address] [place] [address] PCP - General Internal Medicine 07/30/22 Senior [employer] Super[employer] Relationship Specialty Start Date End Date MarkAlice Ferrer DO [address] [place] [address] PCP - General Internal Medicine 07/30/22 Team Status: Inactive Member Role Status Dates Alice Polo , Primary Care Provider Active Start: July 11, 2023 End: July 11, 2023 Gabe Gonzalez APRN Attending Provider Active Start: July 11, 2023 End: July 11, 2023 Team Status: Inactive Member Role Status Dates Alice Polo , Primary Care Provider Active Start: July 31, 2023 End: July 31, 2023 Ken Mendez MD Attending Provider Active S tart: July 31, 2023 End: July 31, 2023 Team Status: Inactive Member Role Status Dates Alice Polo , Primary Care Provider Active Start: August 27, 2023 End: August 27, 2023 Ken Mendez MD Attending Provider Active S tart: August 27, 2023 End: August 27, 2023 Goals (unrecognized section and content) Goals may be documented in a n alternate section INFORMATION SOURCE (unrecogn ized section and content) DATE CREATED AUTHOR 12/21/2021 [facility] Specialist DATE CREATED AUTHOR AUTHOR'S ORGANIZ ATION 05/25/2022 [facility] DATE CREATED AUTHOR AUTHOR'S ORGANIZ ATION 06/05/2022 [facility] DATE CREATED AUTHOR AUTHOR'S ORGANIZ ATION 09/05/2023 [facility] DATE CREATED AUTHOR AUTHOR'S ORGANIZ ATION 10/09/2023 [facility] dical Specialists [facility] FOR RECORDS PERTAINING TO PATIENTS WHO [...] BE BASED ON THE PRIMARY CLINICAL RECORDS. [employer] [facility]. provides no warranty or guarantee of the accuracy or completeness of information in this document.
--- NOTE | 2023-10-16 11:09 | P.CN_ITS ---
Consult Note: HPI Data of Consult Patient: known to practice within the last 3 years Requesting Physician: Jordyn Schroeder NP Primary Care Provider: PETER FERRER Consult Narrative Reason for consult: f/u Narrative: Flores Georges a pleasant 63 year old female with chronic neck and back pain. Patient reporting pain 3/10 constant in low back pain. Pain increased with activity and in the evening. Patient reports resolution of intermittent heaviness numbness and weakness of left leg. Finds mild improvement from motrin and baclofen 5-10mg PRN without side effects. Continues to engage in provider guided HEP greater than 6 weeks with mild benefit. patient trialed TENS without benefit, she has attended 6 field care manager visits with moderate benefit. Recent lumbar TED providing >50% improvement ongoing. Did not trial gabapentin, stopped celebrex dt side effects. cc:: CC: Jordyn Schroeder NP Review of Systems ROS Status of ROS 10 or more systems reviewed and unremark able except as noted in history and below Musculoskeletal Reports: back pain and joint pain PFSH PFSH Medical History Surgical History H/O hand surgery ?Z98.890 - Other specified postprocedural states (ICD-10) History of cholecystectomy ?Z90.49 - Acquired absence of other specified parts of digestive tract (ICD- 10) H/O: hysterectomy ?Z90.710 - Acquired absence of both cervix and uterus (ICD-10) Meds Home Medications and Allergies Home Medications ?Medication ?Instructions ?Recorded ?Confirmed ?Type baclofen 10 mg tablet 10 mg PO DAILY 08/29/22 10/07/23 History citalopram 20 mg tablet (Celexa) 20 mg PO DAILY 08/29/22 10/07/23 History estradiol 1 mg tablet (Estrace) 1 mg PO DAILY 08/29/22 10/07/23 History omeprazole 40 mg capsule,delayed 40 mg PO DAILY 08/29/22 10/07/23 History release phentermine 37.5 mg tablet 37.5 mg PO DAILY 10/07/23 10/07/23 History (Adipex-P) Allergies Allergy/AdvReac Type Severity Reaction Status Date / Time Sulfa (Sulfonamide Allergy Mild Unknown Verified 10/07/23 08:05 Antibiotics) Exam Constitutional Documenting provider has reviewed patient's vital signs: yes Common normals: no apparent distress, oriented x3, healthy appearing, alert and well nourished General appearance: cooperative HENMT Common normals: normocephalic, hearing grossly normal bilaterally and moist oral mucous membranes Head and scalp: normocephalic Eye Common normals: PERRL Pupil: PERRL Neck & C-Spine Common normals: full ROM General: normal visual inspection Chest Common normals: inspection of chest normal Respiratory Common normals: normal respiratory effort, no retractions and no use of accessory muscles Back & Pelvis Thoracic spine/upper back: normal to inspection, paraspinal muscle tenderness and paraspinal muscle spasm Lumbar spine/lower back: normal to inspection, paraspinal muscle tenderness, paraspinal muscle spasm and straight leg raise positive left Sacroiliac joints: SI joint(s) abnormal Other: left lower extremity strength 5/5 sensation intact BLE improvement of heaviness/weakness in bilateral legs with standing walking and stairs negative facet loading left SIJ positive carlyle(patricks), gaenslens, thigh thrust, compression test Extremity Common normals: normal to inspection and full ROM Neuro Common normals: oriented x3, CN's II-XII intact bilaterally, moves all ext remities, no focal motor deficits, no sensory deficits noted and deep tendon reflexes 2+ bilaterally Sensorium/orientation: alert Motor exam: strength 5/5 throughout and no movement abnormalities noted Psych Common normals: mental status grossly normal, thought process normal, cooperative, affect normal, speech normal and activity/motor behavior normal Speech: normal speech Thought process: normal thought process Results Additional Findings Additional findings: If on a controlled substance or opioids, I have checked an [place] report on this patient and there are no aberrancies noted in the prescribing history.??If on a controlled substance or opioid a drug screen was completed and reviewed within the last year, and if there has not been a drug screen completed we ordered one today to monitor higher risk, state monitored pain medication use. As part of providing excellent, safe, comprehensive care, the following was completed at our patient's visit: 1. A medication reconciliation and review to ensure accurate knowledge of current/active medications, including asking our patients to inform us about any [id number] medications or herbal remedies/nutritional supplements/alternative remedies. 2. A review to specifically ensure our patients have had annual screening for screening for depression, screening for tobacco use, and screening for unhealthy alcohol use. For concerning screenings had a discussion with the patient, provided patient education, and recommended follow-up with primary care provider when appropriate. If patient noted with a risk of falling, they received education on strength, gait, and balance training to prevent future risk of falling. Assessment and Plan Assessment and Plan (1) Sacroiliitis: (2) Lumbar stenosis with neurogenic claudication: (3) Lumbar spondylosis: (4) Muscle spasm: (5) Lumbar radiculopathy: Plan discussed left SIJ injection for sacroiliitis, defer at this time continue current medications as needed/tolerated continue HEP as tolerated f/u 3 months, sooner if needed
== END 2023-10-16 10:27 | disposition home or self-care (01) ==
LOC: PM 10:27
PROVIDERS: PCP Internal Medicine; Visit Provider Nurse Practitioner
DX: M46.1 Sacroiliitis, not elsewhere classified (principal); M48.062 Spinal stenosis, lumbar region with neurogenic claudication; M47.816 Spondylosis without myelopathy or radiculopathy, lumbar region; M62.838 Other muscle spasm; M54.16 Radiculopathy, lumbar region
CPT/HCPCS: G0463

== ENCOUNTER 2024-01-14 11:05 | Outpatient (OUT) | payer OTHER, SELFPAY ==
--- NOTE | 2024-01-14 11:19 | P.CN_ITS ---
Consult Note: HPI Data of Consult Patient: known to practice within the last 3 years Requesting Physician: Jordyn Schroeder NP Primary Care Provider: PETER FERRER Consult Narrative Reason for consult: f/u Narrative: Flores Georges a pleasant 63 year old female with chronic back pain. Patient reporting pain 1/10 intermittent in left low back and thigh. Pain only increases to 3/10 at the worst. Pain increased with activity and in the evening. Patient reports resolution of intermittent heaviness numbness and weakness of left leg. Finds mild improvement from motrin and baclofen 5-10mg PRN without side effects. Continues to engage in provider guided HEP greater than 6 weeks with mild benefit. patient trialed TENS without benefit, she has attended 6 memory care program resident visits with moderate benefit. Recent lumbar TED providing >50% improvement ongoing. Did not trial gabapentin, stopped celebrex dt side effects. cc:: CC: Jordyn Schroeder NP Review of Systems ROS Status of ROS 10 or more systems reviewed and unremark able except as noted in history and below Musculoskeletal Reports: back pain PFSH PFSH Medical History Surgical History H/O hand surgery ?Z98.890 - Other specified postprocedural states (ICD-10) History of cholecystectomy ?Z90.49 - Acquired absence of other specified parts of digestive tract (ICD- 10) H/O: hysterectomy ?Z90.710 - Acquired absence of both cervix and uterus (ICD-10) Meds Home Medications and Allergies Home Medications ?Medication ?Instructions ?Recorded ?Confirmed ?Type baclofen 10 mg tablet 10 mg PO DAILY 08/29/22 10/07/23 History citalopram 20 mg tablet (Celexa) 20 mg PO DAILY 08/29/22 10/07/23 History estradiol 1 mg tablet (Estrace) 1 mg PO DAILY 08/29/22 10/07/23 History omeprazole 40 mg capsule,delayed 40 mg PO DAILY 08/29/22 10/07/23 History release phentermine 37.5 mg tablet 37.5 mg PO DAILY 10/07/23 10/07/23 History (Adipex-P) Allergies Allergy/AdvReac Type Severity Reaction Status Date / Time Sulfa (Sulfonamide Allergy Mild Unknown Verified 10/07/23 08:05 Antibiotics) Exam Constitutional Documenting provider has reviewed patient's vital signs: yes Common normals: no apparent distress, oriented x3, healthy appearing, alert and well nourished General appearance: cooperative HENMT Common normals: normocephalic, hearing grossly normal bilaterally and moist oral mucous membranes Head and scalp: normocephalic Eye Common normals: PERRL Pupil: PERRL Neck & C-Spine Common normals: full ROM General: normal visual inspection Chest Common normals: inspection of chest normal Respiratory Common normals: normal respiratory effort, no retractions and no use of accessory muscles Back & Pelvis Thoracic spine/upper back: normal to inspection, paraspinal muscle tenderness and paraspinal muscle spasm Lumbar spine/lower back: normal to inspection, paraspinal muscle tenderness, paraspinal muscle spasm and straight leg raise positive left Sacroiliac joints: SI joint(s) abnormal Other: left lower extremity strength 5/5 sensation intact BLE improvement of heaviness/weakness in bilateral legs with standing walking and stairs negative facet loading left SIJ positive carlyle(patricks), gaenslens, thigh thrust, compression test Extremity Common normals: normal to inspection and full ROM Neuro Common normals: oriented x3, CN's II-XII intact bilaterally, moves all extremities, no focal motor deficits, no sensory deficits noted and deep tendon reflexes 2+ bilaterally Sensorium/orientation: alert Motor exam: strength 5/5 throughout and no movement abnormalities noted Psych Common normals: mental status grossly normal, thought process normal, cooperative, affect normal, speech normal and activity/motor behavior normal Speech: normal speech Thought process: normal thought process Assessment and Plan Assessment and Plan (1) Sacroiliitis: (2) Lumbar stenosis with neurogenic claudication: (3) Lumbar spondylosis: (4) Muscle spasm: (5) Lumbar radiculopathy: Plan continue current medications as needed/tolerated continue HEP as tolerated f/u 6 months, sooner if needed
--- OUTSIDE RECORDS SUMMARY | 2024-01-14 11:20 | XMS_ITS | CCD ---
Author Organization [facility] Care Team Providers Care [employer] Name Role Phone Ken Ortiz Unavailable DO Alice Polo Primary Care Provider [phone] DO Ken Ortiz Attending Provider [phone] TOMMIE Heller Emergency Provider DO Alice Polo Primary Care Provider [phone] DO Oswaldo Deleon Emergency Provider DO Alice Polo Attending Provider Dr. Alice Polo [facility] Alice Polo [facility] JEREMY FERRER ALICE Primary Care Unavailable COREA ., DR ARNAV Martínez Attending Unavailable COREA ., DR ARNAV Martínez Admitting Unavailable COREA ., DR ARNAV Martínez Consulting Unavailable [facility] Primary Care Unavailable MAHMOOD .JONI Consulting Unavailable COREA ., DR ARNAV Martínez Attending Unavailable COREA ., DR ARNAV Martínez Admitting Unavailable [facility] Primary Care Unavailable MAHMOOD ., JONI Consulting Unavailable COREA ., DR ARNAV Martínez Attending Unavailable COREA ., DR ARNAV Martínez Admitting Unavailable [facility] Primary Care Unavailable LAKSHMIPATHY ., NARENDRANATH Admitting [place] v[place] L[facility]SHM[facility] ., NARENDRANATH Attending [place] v[place] [facility] Primary Care Unavailable COREA ., DR ARNAV Martínez Consulting Unavailable COREA ., DR ARNAV Martínez Attending Unavailable COREA ., DR ARNAV Martínez Admitting Unavailable COREA ., DR ARNAV Martínez Attending Unavailable COREA ., DR ARNAV Martínez Admitting Unavailable MISC, DR SCHMIDT Consulting Unavailable [facility] Primary Care Unavailable MAHMOOD ., JONI Consulting Unavailable MAHMOOD ., JONI Consulting Unavailable COREA ., DR ARNAV Martínez Attending Unavailable COREA ., DR ARNAV Martínez Admitting Unavailable [facility] ALICE Primary Care Unavailable COREA ., DR ARNAV Martínez Consulting Unavailable COREA ., DR ARNAV Martínez Attending Unavailable COREA ., DR ARNAV Martínez Admitting Unavailable [facility] ALICE Primary Care Unavailable ROLAN CRISOSTOMO Consulting Unavailable [facility] ALICE Primary Care Unavailable MAHMOOD ., [...] COREA ., DR ARNAV Martínez Admitting [facility]available [facility] Primary [facility] Unavailable DO Melani Alice Primary Care Provider [phone] DO Oswaldo Deleon Emergency Provider [phone] DO Alice Polo Attending Provider DO Alice Polo Referring Provider [phone] MD Ken Mendez Attending Provider [phone] Edison Monroe Unavailable DO Alice Polo Primary Care Provider MD Edison Monroe Attending Provider CRISTEL Perez Attending Provider Gabe Gonzalez Unavailable Alice Polo DO Primary Care Provider Melani, Alice Primary Care Provider MD Ken Mendez Attending Provider LunaJavier Alice Primary Care Unavailable Ken Mendez Attending Unavailable Ken Mendez Admitting Unavailable Alix Perez Admitting Unavailable Luna-Emmons, Alice Primary Care Unavailable Alix Perez Attending Unavailable ALCIDES, PAUL Thakur Attending Unavailable ALCIDES, PAUL Thakur Attending Unavailable ALICE POLO Attending Unavailab le VISCI, PAUL Thakur Attending Unavailable ALCIDES, PAUL Thakur Attending Unavailable ALICE POLO Referring Unavailab chantel DIDRAQUEL GA Attending Unavailable DIDRAQUEL GA Referring Unavailable PAUL MCGRATH Attending Unavailable ALICE POLO Referring Unavailab le DIDIONRAQUEL Attending Unavailable VISCLeia, PAUL Thakur Attending Unavailable VISCLeia, PAUL Thakur Attending Unavailable Allergies Allergy Classification Reported Allergen(s) Allergy Type Date of Onset Reaction(s) Facility (1 source) Sulfonamides (Antibiotic) Drug allergy (disorder) [facility] Rep[facility] (2 sources) Sulfonamides (Antibiotic); Translations: [Sulfa (Sulfonamide Antibiotics)] Allergy to substance 3 [facility] (3 sources) Sulfonamides (Antibiotic) Drug [...] 11, 2023 12:00am take 1 capsule by [facility] every twenty-four hours as needed CeleBREX [...] every four to six hours Hydrocodone-Acetami nophen (Vesuvius) 5-325 mg tablet Discontinued 1 - 2 TAB PO EVERY 4-6 HOURS 50 7 December 10, 2018 December 10, 2018 10:44am Start: 12-10-2018 End: 12-10-2018 take 1 tablet by mouth every four to six hours Hydrocodone-Acetaminophen (Vesuvius) 5-325 mg tablet Discontinued 1 - 2 TAB PO EVERY 4-6 HOURS 50 7 December 10, 2018 December 10, 2018 10:44am Start: 12-10-2018 End: 12-10-2018 take 1 tablet by mouth every four to six hours Hydrocodone-Acetaminophen (Vesuvius) 5-325 mg tablet Discontinued 1 - 2 TAB PO EVERY 4-6 HOURS 50 7 December 10, 2018 December 10, 2018 10:44am Start: 12-10-2018 End: 12-10-2018 take 1 tablet by mouth every four to six hours Hydrocodone-Acetaminophen (Vesuvius) 5-325 mg tablet Discontinued 1 - 2 TAB PO EVERY 4-6 HOURS 50 7 December 10, 2018 December 10, 2018 10:44am Start: 12-10-2018 End: 12-10-2018 take 1 tablet by mouth every four to six hours Hydrocodone-Acetaminophen (Vesuvius) 5-325 mg tablet Discontinued 1 - 2 TAB PO EVERY 4-6 HOURS 50 7 December 10, 2018 December 10, 2018 10:44am Start: 12-10-2018 End: 12-10-2018 take 1 tablet by mouth every four to six hours Hydrocodone-Acetaminophen (Vesuvius) 5-325 mg tablet Discontinued 1 - 2 TAB PO EVERY 4-6 HOURS 50 7 December 10, 2018 December 10, 2018 9:44am Start: 12-10-2018 End: 12-10-2018 take 1 tablet by mouth every four to six hours Hydrocodone-Acetaminophen (Vesuvius) 5-325 mg tablet Discontinued 1 - 2 TAB PO EVERY 4-6 HOURS 50 7 December 10, 2018 December 10, 2018 9:44am Start: 12-10-2018 End: 12-10-2018 take 1 tablet by mouth every four to six hours Hydrocodone-Acetaminophen (Vesuvius) 5-325 mg tablet Discontinued 1 - 2 TAB PO EVERY 4-6 HOURS 50 7 December 10, 2018 December 10, 2018 10:44am Start: 04-27-2018 End: 12-10-2018 take 1 tablet by mouth every four to six hours Hydrocodone-Acetaminophen (Vesuvius) 5-325 mg tablet Discontinued 1 - 2 [...] aPTT Coag (PPP) [Time] 30.0 s 25.1-36.5 [facility] Basophils Auto (Bld) [#/Vol] Ordered By: Oswaldo Deleon on 05-02-2022 Basophils (Bld) [#/Vol] 0.0 10*3/uL 0.0-0.2 [facility] Basophils/100 WBC Auto (Bld) Ordered By: Oswaldo Deleon on 05-02-2022 Basophils/100 WBC (Bld) 0.7 % . [facility] Body fluid albumin measureme nt (mass/volume)Ordered By: Oswaldo Deleon on 05-02-2022 Albumin (Body fld) [Mass/Vol] 4.0 g/dL 3.2-5.5 [facility] Creatine kinase [Enzymatic a ctivity/volume] in Serum or PlasmaOrdered By: Oswaldo Deleon on 05-02-2022 CK [Catalytic activity/Vol] 50 U/L 22-269 [facility] Creatinine and Glomerular fi ltration rate.predicted panel (S/P/Bld)Ordered By: Oswaldo Deleon on 05-02-2022 Creatinine [Mass/Vol] 0.79 mg/dL 0.44-1.03 [facility] Eosinophils Auto (Bld) [#/Vo l]Ordered By: Oswaldo Deleon on 05-02-2022 Eosinophils (Bld) [#/Vol] 0.4 10*3/uL 0.0-0.45 [facility] Eosinophils/100 WBC Auto (Bl d)Ordered By: Oswaldo Deleon on 05-02-2022 Eosinophils/100 WBC (Bld) 4.9 % . [facility] Erythrocyte distribution wid th Auto (RBC) [Ratio]Ordered By: Oswaldo Deleon on 05-02-2022 Erythrocyte distribution width (RBC) [Ratio] 13.0 % 11.9-15.3 [facility] Estimated glomerular filtrat ion rate (GFR) non- AmericanOrdered By: Oswaldo Deleon on 05-02-2022 GFR/1.73 sq M.predicted among non-blacks MDRD (S/P/Bld) [Vol rate/Area] > 60 mL/Min [facility] Globulin Calc (S) [Mass/Vol] Ordered By: Oswaldo Deleon on 05-02-2022 Globulin (S) [Mass/Vol] 2.9 g/dL [facility] Hematocrit Auto (Bld) [Volum e fraction]Ordered By: Oswaldo Deleon on 05-02-2022 Hematocrit (Bld) [Volume fraction] 43.7 % 34.0-46.4 [facility] Hemoglobin [Mass/volume] in BloodOrdered By: Oswaldo Deleon on 05-02-2022 Hemoglobin (Bld) [Mass/Vol] 14.7 g/dL 11.8-15.4 [facility] Laboratory - Chemistry and C hemistry - challengeOrdered By: Oswaldo Deleon on 05-02-2022 Magnesium [Mass/Vol] 2.0 mg/dL 1.6-2.6 [facility] Laboratory - CoagulationOrde red By: Oswaldo Deleon on 05-02-2022 PT Coag (PPP) [Time] 11.6 s 9.0-12.9 [facility] Leukocytes [#/volume] correc nikhil for nucleated erythrocytes in Blood by Automated counOrdered By: Oswaldo Deleon on 05-02-2022 WBC corrected for nucl RBC Auto (Bld) [#/Vol] 7.4 10*3/uL 3.8-11.6 [facility] Lymphocytes Auto (Bld) [#/Vo l]Ordered By: Oswaldo Deleon on 05-02-2022 Lymphocytes (Bld) [#/Vol] 1.6 10*3/uL 1.00-4.8 [facility] Lymphocytes/100 WBC Auto (Bl d)Ordered By: Oswaldo Deleon on 05-02-2022 Lymphocytes/100 WBC (Bld) 22.0 % . [facility] MCH Auto (RBC) [Entitic mass ]Ordered By: Oswaldo Deleon on 05-02-2022 MCH (RBC) [Entitic mass] 30.0 pg 24.7-34.3 [facility] MCHC Auto (RBC) [Mass/Vol]Or dered By: Oswaldo Deleon on 05-02-2022 MCHC (RBC) [Mass/Vol] 33.7 g/dL 32.0-35.0 [facility] MCV Auto (RBC) [Entitic vol] Ordered By: Oswaldo Deleon on 05-02-2022 MCV (RBC) [Entitic vol] 88.9 fL 80-100 [facility] Monocyte distribution width [Entitic volume] in Blood by AutomatedOrdered By: Oswaldo Deleon on 05-02-2022 Monocyte distribution width Auto (Bld) [Entitic vol] 18.10 % 0.00-20.00 [facility] Monocytes Auto (Bld) [#/Vol] Ordered By: Oswaldo Deleon on 05-02-2022 Monocytes (Bld) [#/Vol] 0.8 10*3/uL 0.0-0.8 [facility] Monocytes/100 WBC Auto (Bld) Ordered By: Oswaldo Deleon on 05-02-2022 Monocytes/100 WBC (Bld) 10.2 % . [facility] Neutrophils Auto (Bld) [#/Vo l]Ordered By: Oswaldo Deleon on 05-02-2022 Neutrophils (Bld) [#/Vol] 4.6 10*3/uL 1.8-7.7 [facility] Neutrophils/100 WBC Auto (Bl d)Ordered By: Oswaldo Deleon on 05-02-2022 Neutrophils/100 WBC (Bld) 62.2 % . [facility] No Panel InformationOrdered By: Oswaldo Deleon on 05-02-2022 D-Dimer Quantitative (PE/DVT) < 200 ng/mL 0-243 [facility] Comment on above: The reference range [...] conditions. Estimated GFR () > 60 mL/Min [facility] Comment on above: GFR estimated refere nce range: According to KDOQI guidelines, <60 ml/min/1.73m2 is sufficient to diagnose a patient with chronic kidney disease. Pharmacy Creatinine Clearance (Chem 67.96 [facility] Nucleated erythrocytes [Pres ence] in Blood by Automated countOrdered By: Oswaldo Deleon on 05-02-2022 Nucleated RBC Auto Ql (Bld) 0.1 /100{WBC} 0-0.5 [facility] Platelet mean volume Auto (B ld) [Entitic vol]Ordered By: Oswaldo Deleon on 05-02-2022 Platelet mean volume (Bld) [Entitic vol] 8.7 fL 6.3-10.7 [facility] Platelet poor plasma interna tional normalized ratio (INR) by coagulation assay (relatOrdered By: Oswaldo Deleon on 05-02-2022 INR Coag (PPP) [Relative time] 1.0 {INR} [facility] Comment on above: INR Therapeutic Rang [...] 05-02-2022 Platelets (Bld) [#/Vol] 271 10*3/uL 150-450 [facility] Protein [Mass/volume] in Ser um or PlasmaOrdered By: Oswaldo Deleon on 05-02-2022 Protein [Mass/Vol] 6.9 g/dL 6.1-7.9 [facility] RBC Auto (Bld) [#/Vol]Ordere d By: Oswaldo Deleon on 05-02-2022 RBC (Bld) [#/Vol] 4.92 10*6/uL 3.60-5.00 [facility] Serum or plasma alanine reyna otransferase measurement without P-5'-P (enzymatic activiOrdered By: Oswaldo Deleon on 05-02-2022 ALT No additional P-5'-P [Catalytic activity/Vol] 21 U/L 10-60 [facility] Serum or plasma albumin/glob ulin mass ratioOrdered By: Oswaldo Deleon on 05-02-2022 Albumin/Globulin [Mass ratio] 1.4 {ratio} [facility] Serum or plasma alkaline raphael sphatase measurement (enzymatic activity/volume)Ordered By: Oswaldo Deleon on 05-02-2022 ALP [Catalytic activity/Vol] 56 U/L 32-92 [facility] Serum or plasma anion gap de terminationOrdered By: Oswaldo Deleon on 05-02-2022 Anion gap [Moles/Vol] 11.4 mmol/L 6.0-15.0 [facility] Serum or plasma aspartate am inotransferase measurement (enzymatic activity/volume)Ordered By: Oswaldo Deleon on 05-02-2022 AST [Catalytic activity/Vol] 20 U/L 10-42 [facility] Serum or plasma calcium shellie urement (mass/volume)Ordered By: Oswaldo Deleon on 05-02-2022 Calcium [Mass/Vol] 9.4 mg/dL 8.2-10.2 [facility] Serum or plasma chloride isidro surement (moles/volume)Ordered By: Oswaldo Deleon on 05-02-2022 Chloride [Moles/Vol] 100 mmol/L 95-114 [facility] Serum or plasma creatine kin ase MB (CKMB)/total creatine kinase (CK) ratio by calculaOrdered By: Oswaldo Deleon on 05-02-2022 CK.MB Calc [Catalytic fraction] 1.8 % 0.00-2.50 [facility] Serum or plasma creatine kin ase MB measurement (mass/volume)Ordered By: Oswaldo Deleon on 05-02-2022 CK.MB [Mass/Vol] 0.9 ng/mL 0.6-6.3 [facility] Serum or plasma glucose shellie urement (mass/volume)Ordered By: Oswaldo Deleon on 05-02-2022 Glucose [Mass/Vol] 87 mg/dL 70-100 [facility] Comment on above: ADA recommended refe rence rangeRandom Glucose Reference Range is dependent on time and content of last meal. Glucose of more than 200 mg/dL in a nonstressed, ambulatory subject supports the diagnosis of Diabetes Mellitus. Serum or plasma potassium me asurement (moles/volume)Ordered By: Oswaldo Deleon on 05-02-2022 Potassium [Moles/Vol] 3.9 mmol/L 3.5-5.1 [facility] Serum or plasma sodium measu rement (moles/volume)Ordered By: Oswaldo Deleon on 05-02-2022 Sodium [Moles/Vol] 135 mmol/L 136-146 [facility] Serum or plasma total biliru bin measurement (mass/volume)Ordered By: Oswaldo Deleon on 05-02-2022 Bilirubin [Mass/Vol] 0.5 mg/dL 0.3-1.2 [facility] Serum or plasma total carbon dioxide measurement (moles/volume)Ordered By: Oswaldo Deleon on 05-02-2022 CO2 [Moles/Vol] 27.5 mmol/L 22.0-30.0 [facility] Serum or plasma urea nitroge n measurement (mass/volume)Ordered By: Oswaldo Deleon on 05-02-2022 Urea nitrogen [Mass/Vol] 21 mg/dL 9-23 [facility] Troponin I.cardiac [Mass/vol ume] in Serum or Plasma by High sensitivity methodOrdered By: Oswaldo Deleon on 05-02-2022 Troponin I.cardiac High sensitivity method [Mass/Vol] 3 pg/mL 0-15 [facility] WBC Auto (Bld) [#/Vol]Ordere d By: Oswaldo Deleon on 05-02-2022 WBC (Bld) [#/Vol] 7.4 10*3/uL 3.8-11.6 [facility] XR TSPINE MIN 4 VIEWSon 01-22 [...] GENESIS BELLO Date: 2022-02-07 15:12 Normal [facility] SCREENING MAMMOGRAM W/NUPUR, BILATERAL*on 12-06-2021 SCREENING [...] VERY IMPORTANT TO YOUR HEALTH. THE CURRENT [employer] OF [employer] AND N[employer] COMPREHENSIVE CANCER NETWORK GUIDELINES RECOMMENDS ANNUAL MAMMOGRAPHY BEGINNING AT AGE 40 THIS FACILITY USES A REMINDER SYSTEM TO ENSURE ALL PATIENTS RECEIVE REMINDER NOTIFICATIONS AT THE APPROPRIATE TIME BASED ON THE RECOMMENDATIONS OF THIS EXAM. 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 Accredited by the ACR and FDA. Report reported and signed by Paulino Will on 12/06/2021 [address] [facility] [employer] Specialist Basophils Auto (Bld) [#/Vol] Ordered By: Ken Ortiz on 10-04-2021 Basophils (Bld) [#/Vol] 0.0 10*3/uL 0.0-0.2 [facility] Basophils/100 WBC Auto (Bld) Ordered By: Ken Ortiz on 10-04-2021 Basophils/100 WBC (Bld) 0.7 % . [facility] Blood hemoglobin measurement (mass/volume)Ordered By: Ken Ortiz on 10-04-2021 Hemoglobin (Bld) [Mass/Vol] 14.6 g/dL 11.8-15.4 [facility] Blood leukocytes automated c ount (number/volume)Ordered By: Ken Ortiz on 10-04-2021 WBC (Bld) [#/Vol] 4.4 10*3/uL 4.5-11.0 [facility] Body fluid albumin measureme nt (mass/volume)Ordered By: Ken Ortiz on 10-04-2021 Albumin (Body fld) [Mass/Vol] 3.7 g/dL 3.2-5.5 [facility] C reactive protein [Mass/vol ume] in Serum or PlasmaOrdered By: Ken Ortiz on 10-04-2021 CRP [Mass/Vol] 0.6 mg/dL 0.0-1.0 [facility] Creatinine and Glomerular fi ltration rate.predicted panel (S/P/Bld)Ordered By: Ken Ortiz on 10-04-2021 Creatinine [Mass/Vol] 0.74 mg/dL 0.44-1.03 [facility] Elastase.pancreatic [Mass/ma ss] in StoolOrdered By: Ken Ortiz on 10-04-2021 Elastase.pancreatic (Stl) [Mass/Mass] >500 >200 [facility] Comment on above: Result Units: ug Luz st./g Severe Pancreatic Insufficiency: <100 Moderate Pancreatic Insufficiency: 100 - 200 Normal: >200 Performed at: [facility] [address] [id number] [employer]: Lamont Young MD, Phone: [phone] Eosinophils Auto (Bld) [#/Vo l]Ordered By: Ken Ortiz on 10-04-2021 Eosinophils (Bld) [#/Vol] 0.2 10*3/uL 0.0-0.45 [facility] Eosinophils/100 WBC Auto (Bl d)Ordered By: Ken Ortiz on 10-04-2021 Eosinophils/100 WBC (Bld) 5.2 % . [facility] Erythrocyte distribution wid th Auto (RBC) [Ratio]Ordered By: Ken Ortiz on 10-04-2021 Erythrocyte distribution width (RBC) [Ratio] 13.1 % 11.9-15.3 [facility] Erythrocyte sedimentation ra te by Photometric methodOrdered By: Ken Ortiz on 10-04-2021 ESR Photometric method (Bld) [Velocity] 5 mm/hr 0-29 [facility] Estimated glomerular filtrat ion rate (GFR) non- AmericanOrdered By: Ken Ortiz on 10-04-2021 GFR/1.73 sq M.predicted among non-blacks MDRD (S/P/Bld) [Vol rate/Area] > 60 mL/Min [facility] Globulin Calc (S) [Mass/Vol] Ordered By: Ken Ortiz on 10-04-2021 Globulin (S) [Mass/Vol] 2.5 g/dL [facility] Hematocrit Auto (Bld) [Volum e fraction]Ordered By: Ken Ortiz on 10-04-2021 Hematocrit (Bld) [Volume fraction] 43.7 % 34.0-46.4 [facility] IgA [Mass/volume] in Serum o r PlasmaOrdered By: Ken Ortiz on 10-04-2021 IgA [Mass/Vol] 168 mg/dL 87-352 [facility] Comment on above: Performed at: [address] [id number] [employer]: Kevin Sanders PhD, Phone: [phone] Laboratory - Hematology and Cell countsOrdered By: Ken Ortiz on 10-04-2021 Nucleated RBC/100 WBC (Bld) [Ratio] 0.0 % 0-0.5 [facility] Lymphocytes Auto (Bld) [#/Vo l]Ordered By: Ken Ortiz on 10-04-2021 Lymphocytes (Bld) [#/Vol] 1.5 10*3/uL 1.00-4.8 [facility] Lymphocytes/100 WBC Auto (Bl d)Ordered By: Ken Ortiz on 10-04-2021 Lymphocytes/100 WBC (Bld) 34.1 % . [facility] MCH Auto (RBC) [Entitic mass ]Ordered By: Ken Ortiz on 10-04-2021 MCH (RBC) [Entitic mass] 29.8 pg 24.7-34.3 [facility] MCHC Auto (RBC) [Mass/Vol]Or dered By: Ken Ortiz on 10-04-2021 MCHC (RBC) [Mass/Vol] 33.5 g/dL 32.0-35.0 [facility] MCV Auto (RBC) [Entitic vol] Ordered By: Ken Ortiz on 10-04-2021 MCV (RBC) [Entitic vol] 88.9 fL 80-100 [facility] Monocytes Auto (Bld) [#/Vol] Ordered By: Ken Ortiz on 10-04-2021 Monocytes (Bld) [#/Vol] 0.4 10*3/uL 0.0-0.8 [facility] Monocytes/100 WBC Auto (Bld) Ordered By: Ken Ortiz on 10-04-2021 Monocytes/100 WBC (Bld) 8.1 % . [facility] Neutrophils Auto (Bld) [#/Vo l]Ordered By: Ken Ortiz on 10-04-2021 Neutrophils (Bld) [#/Vol] 2.3 10*3/uL 1.8-7.7 [facility] Neutrophils/100 WBC Auto (Bl d)Ordered By: Ken Ortiz on 10-04-2021 Neutrophils/100 WBC (Bld) 51.9 % . [facility] No Panel InformationOrdered By: Ken Ortiz on 10-04-2021 Endomysial IgA Antibody Negative Negative [facility] Estimated GFR () > 60 mL/Min [facility] Comment on above: GFR estimated refere nce range: According to KDOQI guidelines, <60 ml/min/1.73m2 is sufficient to diagnose a patient with chronic kidney disease. Pharmacy Creatinine Clearance (Chem N/A [facility] Platelet mean volume Auto (B ld) [Entitic vol]Ordered By: Ken Ortiz on 10-04-2021 Platelet mean volume (Bld) [Entitic vol] 9.2 fL 6.3-10.7 [facility] Platelets Auto (Bld) [#/Vol] Ordered By: Ken Ortiz on 10-04-2021 Platelets (Bld) [#/Vol] 286 10*3/uL 150-450 [facility] Protein [Mass/volume] in Ser um or PlasmaOrdered By: Ken Ortiz on 10-04-2021 Protein [Mass/Vol] 6.2 g/dL 6.1-7.9 [facility] RBC Auto (Bld) [#/Vol]Ordere d By: Ken Ortiz on 10-04-2021 RBC (Bld) [#/Vol] 4.92 10*6/uL 3.60-5.00 [facility] Serum gliadin peptide IgA an tibody assay (units/volume)Ordered By: Ken Ortiz on 10-04-2021 Gliadin peptide IgA Qn (S) 4 units 0-19 [facility] Comment on above: Negative 0 - 19 Weak Positive 20 - 30 Moderate to Strong Positive >30 Serum gliadin peptide IgG an tibody assay (units/volume)Ordered By: Ken Ortiz on 10-04-2021 Gliadin peptide IgG Qn (S) 2 units 0-19 [facility] Comment on above: Negative 0 - 19 Weak Positive 20 - 30 Moderate to Strong Positive >30 Serum or plasma alanine reyna otransferase measurement without P-5'-P (enzymatic activiOrdered By: Ken Ortiz on 10-04-2021 ALT No additional P-5'-P [Catalytic activity/Vol] 16 U/L 10-60 [facility] Serum or plasma albumin/glob ulin mass ratioOrdered By: Ken Ortiz on 10-04-2021 Albumin/Globulin [Mass ratio] 1.5 {ratio} [facility] Serum or plasma alkaline raphael sphatase measurement (enzymatic activity/volume)Ordered By: Ken Ortiz on 10-04-2021 ALP [Catalytic activity/Vol] 55 U/L 32-92 [facility] Serum or plasma aspartate am inotransferase measurement (enzymatic activity/volume)Ordered By: Ken Ortiz on 10-04-2021 AST [Catalytic activity/Vol] 18 U/L 10-42 [facility] Serum or plasma calcium shellie urement (mass/volume)Ordered By: Ken Ortiz on 10-04-2021 Calcium [Mass/Vol] 9.7 mg/dL 8.2-10.2 [facility] Serum or plasma chloride isidro surement (moles/volume)Ordered By: Ken Ortiz on 10-04-2021 Chloride [Moles/Vol] 101 mmol/L 95-114 [facility] Serum or plasma glucose shellie urement (mass/volume)Ordered By: Ken Ortiz on 10-04-2021 Glucose [Mass/Vol] 85 mg/dL 70-100 [facility] Comment on above: ADA recommended refe rence range Random Glucose Reference Range is dependent on time and content of last meal. Glucose of more than 200 mg/dL in a nonstressed, ambulatory subject supports the diagnosis of Diabetes Mellitus. Serum or plasma potassium me asurement (moles/volume)Ordered By: Ken Ortiz on 10-04-2021 Potassium [Moles/Vol] 4.4 mmol/L 3.5-5.1 [facility] Serum or plasma sodium measu rement (moles/volume)Ordered By: Ken Ortiz on 10-04-2021 Sodium [Moles/Vol] 138 mmol/L 136-146 [facility] Serum or plasma total biliru bin measurement (mass/volume)Ordered By: Ken Ortiz on 10-04-2021 Bilirubin [Mass/Vol] 0.5 mg/dL 0.3-1.2 [facility] Serum or plasma total carbon dioxide measurement (moles/volume)Ordered By: Ken Ortiz on 10-04-2021 CO2 [Moles/Vol] 30.4 mmol/L 22.0-30.0 [facility] Serum or plasma urea nitroge n measurement (mass/volume)Ordered By: Ken Ortiz on 10-04-2021 Urea nitrogen [Mass/Vol] 13 mg/dL 9-23 [facility] Serum tissue transglutaminas e (tTG) IgA antibody assay (units/volume)Ordered By: Ken Ortiz on 10-04-2021 tTG IgA Qn (S) <2 U/mL 0-3 [facility] Comment on above: Negative 0 - 3 Weak Positive 4 - 10 Positive >10 Tissue Transglutaminase (tTG) has been identified as the endomysial antigen. Studies have demonstr- ated that endomysial IgA antibodies have over 99% specificity for gluten sensitive enteropathy. Serum tissue transglutaminas e (tTG) IgG antibody assay (units/volume)Ordered By: Ken Ortiz on 10-04-2021 tTG IgG Qn (S) <2 U/mL 0-5 [facility] Comment on above: Negative 0 - 5 Weak Positive 6 - 9 Positive >9 Vital Signs Date Time Vital Sign Value Performing Clinician Facility 07-31-2023 08:37-0400 Body height 152.4 cm [facility] 07-31-2023 08:37-0400 Body mass index (BMI) [Ratio] 27.3 kg/m2 [facility] 07-31-2023 08:37-0400 Body weight 63.5 kg [facility] 07-31-2023 08:37-0400 Diastolic blood pressure 77 mm[Hg] [facility] 07-31-2023 08:37-0400 Heart rate 71 /min [facility] 07-31-2023 08:37-0400 SaO2% (BldA) [Mass fraction] 99 % [facility] 07-31-2023 08:37-0400 Systolic blood pressure 136 mm[Hg] [facility] 07-11-2023 10:22-0400 Body height 152.4 cm [facility] 07-11-2023 10:22-0400 Body mass index (BMI) [Ratio] 28.2 kg/m2 [facility] 07-11-2023 10:22-0400 Body weight 65.48 kg [facility] 07-11-2023 10:22-0400 Diastolic blood pressure 81 mm[Hg] [facility] 07-11-2023 10:22-0400 Heart rate 67 /min [facility] 07-11-2023 10:22-0400 Systolic blood pressure 146 mm[Hg] [facility] 05-08-2023 14:36-0500 Body height 152.4 cm Paul Visci DO Work Phone: [facility] 05-08-2023 14:36-0500 Body mass index (BMI) [Ratio] 28.32 kg/m2 Paul Visci DO Work Phone: [facility] 05-08-2023 14:36-0500 Body weight 65.77 kg Paul Visci DO Work Phone: [facility] 05-08-2023 14:36-0500 Diastolic blood pressure 84 mm[Hg] Paul Visci DO Work Phone: [facility] 05-08-2023 14:36-0500 Systolic blood pressure 124 mm[Hg] Paul Visci DO Work Phone: [facility] 04-24-2023 10:05-0500 Body mass index (BMI) [Ratio] 28.55 kg/m2 Alice Luna-Emmons DO Work Phone: [facility] 04-24-2023 10:05-0500 Body weight 66.32 kg Alice Luna-Emmons DO Work Phone: [facility] 04-24-2023 10:05-0500 Diastolic blood pressure 64 mm[Hg] Alice Luna-Emmons DO Work Phone: [facility] 04-24-2023 10:05-0500 Heart rate 64 /min Alice Luna-Emmons DO Work Phone: [facility] 04-24-2023 10:05-0500 SaO2% (BldA) [Mass fraction] 98 % Alice Luna-Emmons DO Work Phone: [facility] 04-24-2023 10:05-0500 Systolic blood pressure 112 mm[Hg] Alice Luna-Emmons DO Work Phone: [facility] 12-09-2022 10:00-0400 Body height 152.4 cm Gabe Gonzalez Other [employer] Other 12-09-2022 10:00-0400 Body mass index (BMI) [Ratio] 32.22 kg/m2 Gabe Gonzalez Other [employer] Other 12-09-2022 10:00-0400 Body weight 74.84 kg Gabe Gonzalez Other [facility] Other 12-09-2022 10:00-0400 Diastolic blood pressure 81 mm[Hg] Gabe Gonzalez Other [employer] Other 12-09-2022 10:00-0400 Systolic blood pressure 129 mm[Hg] Gabe Scton Other [employer] Other 09-03-2022 13:50-0400 Diastolic blood pressure 79 mm[Hg] DO Alice Luna-Emmons Work Phone: [facility] 09-03-2022 13:50-0400 Heart rate 56 /min DO Alice Luna-Emmons Work Phone: [facility] 09-03-2022 13:50-0400 SaO2% (BldA) [Mass fraction] 100 % DO Alice Luna-Emmons Work Phone: [facility] 09-03-2022 13:50-0400 Systolic blood pressure 125 mm[Hg] DO Alice Luna-Emmons Work Phone: [facility] 09-03-2022 12:25-0400 Body height 152.4 cm DO Alice Luna-Emmons Work Phone: [facility] 09-03-2022 12:25-0400 Body temperature 97.9 [degF] DO Alice Luna-Emmons Work Phone: [facility] 09-03-2022 12:25-0400 Body weight 72.12 kg DO Alice Luna-Emmons Work Phone: [facility] 09-03-2022 12:25-0400 Respiratory rate 16 /min DO Alice Luna-Emmons Work Phone: [facility] 05-02-2022 20:00-0500 Diastolic blood pressure 86 mm[Hg] DO Alice Luna-Emmons Work Phone: [facility] 05-02-2022 20:00-0500 Heart rate 66 /min DO Alice Luna-Emmons Work Phone: [facility] 05-02-2022 20:00-0500 Respiratory rate 20 /min DO Alice Luna-Emmons Work Phone: [facility] 05-02-2022 20:00-0500 SaO2% (BldA) [Mass fraction] 99 % DO Alice Luna-Emmons Work Phone: [facility] 05-02-2022 20:00-0500 Systolic blood pressure 137 mm[Hg] DO Alice Luna-Emmons Work Phone: [facility] 05-02-2022 16:29-0500 Body height 152.4 cm DO Alice Luna-Emmons Work Phone: [facility] 05-02-2022 16:29-0500 Body temperature 97.5 [degF] DO Alice Luna-Emmons Work Phone: [facility] 05-02-2022 16:29-0500 Body weight 72.12 kg DO Alice Luna-Emmons Work Phone: [facility] 11-09-2021 13:34-0400 Body height 152.4 cm DO Alice Luna-Emmons Work Phone: [facility] 11-09-2021 13:34-0400 Body temperature 98 [degF] DO Alice Luna-Emmons Work Phone: [facility] 11-09-2021 13:34-0400 Body weight 71 kg DO Alice Luna-Emmons Work Phone: [facility] 11-09-2021 13:34-0400 Diastolic blood pressure 80 mm[Hg] DO Alice Luna-Emmons Work Phone: [facility] 11-09-2021 13:34-0400 Heart rate 78 /min DO Alice Luna-Emmons Work Phone: [facility] 11-09-2021 13:34-0400 Respiratory rate 18 /min DO Alice Luna-Emmons Work Phone: [facility] 11-09-2021 13:34-0400 SaO2% (BldA) [Mass fraction] 97 % DO Alice Luna-Emmons Work Phone: [facility] 11-09-2021 13:34-0400 Systolic blood pressure 187 mm[Hg] DO Alice Luna-Emmons Work Phone: [facility] 12-20-2020 14:15-0400 Body height 152.4 cm Ken Ideatory Other [employer] Other 12-20-2020 14:15-0400 Body mass index (BMI) [Ratio] 31.05 kg/m2 Ken Ortiz Other [employer] Other 12-20-2020 14:15-0400 Body weight 72.12 kg Ken Ortiz Other [employer] Other Encounters Encounter Date Encounter Type Care Provider Facility Start: 11-18-2023 End: 11-18-2023 ambulatory PAUL A VISCI Not Available Start: 09-29-2023 End: 09-29-2023 ambulatory ALICE LUNA-EMERY Not Available Start: 08-27-2023 End: 08-27-2023 Patient encounter procedure DO Alice Luna-Emmons Work Phone: [facility] Work Phone: Start: 08-27-2023 End: 08-27-2023 ambulatory DO Alice Luna-Emmons Work Phone: [facility] Work Phone: Start: 07-31-2023 End: 07-31-2023 ambulatory [facility] Work Phone: Start: 07-31-2023 End: 07-31-2023 Patient encounter procedure [facility] Work Phone: Start: 07-16-2023 End: 07-16-2023 ambulatory PAUL A VISCI Not Available Start: 07-11-2023 End: 07-11-2023 ambulatory [facility] Work Phone: Start: 07-11-2023 End: 07-11-2023 Patient encounter procedure [facility] Gastroenterology Work Phone: Start: 06-09-2023 End: 06-09-2023 ambulatory RAQUEL L DIDION Not Available Start: 06-02-2023 End: 06-02-2023 ambulatory PAUL A VISCI Not Available Start: 05-08-2023 End: 05-08-2023 Office outpatient visit 15 minutes Paul A Visci DO Work Phone: [facility] OB Comment on above: Body mass index (BMI ) 28.0-28.9, adult; Abnormal weight gain; Yeast infection; BMI 29.0-29.9,adult Start: 05-08-2023 End: 05-08-2023 ambulatory PAUL A VISCI Not Available Start: 04-24-2023 End: 04-24-2023 Patient encounter status Alice Polo DO Work Phone: [facility] Healthcare Work Phone: Start: 04-24-2023 End: 04-24-2023 Periodic preventive med est patient 40-64yrs Alcie Polo DO Work Phone: [facility] IM Comment on above: Encounter for preven tative adult health care examination (Primary Dx); Arthritis, lumbar spine; Depression, major, in remission (HCC) ([facility]/HCC); Gastroesophageal reflux disease without esophagitis; Postmenopausal; Hormone replacement therapy; Class 1 obesity Start: 04-24-2023 End: 04-24-2023 ambulatory ALICE POLO Not Available Start: 03-31-2023 End: 03-31-2023 ambulatory PAUL A VISCI Not Available Start: 03-06-2023 End: 03-06-2023 ambulatory PAUL A VISCI Not Available Start: 02-06-2023 End: 02-06-2023 ambulatory PAUL A VISCI Not Available Start: 12-09-2022 End: 12-09-2022 ambulatory Gbae Gonzalez Other [employer] Other Start: 12-09-2022 Office outpatient visit 15 minutes Gabe Gonzalez [facility] Gastroenterology Start: 09-26-2022 End: 09-26-2022 Patient encounter procedure DO Alice Polo Work Phone: [facility] Work Phone: Start: 09-26-2022 End: 09-26-2022 ambulatory DO Alice Luna-Emmons Work Phone: [facility] Work Phone: Start: 09-04-2022 End: 09-04-2022 ambulatory Edison Monroe Other [facility] [employer] Other Start: 09-04-2022 Telephone encounter Edison HAHN [facility] Gastroenterology Start: 09-03-2022 End: 09-03-2022 Admission to same day surgery center DO Alice Luna-Emmons Work Phone: [facility] Work Phone: Start: 08-29-2022 ambulatory ALICE LUNA EMERY Fac ility:H1 Start: 06-12-2022 End: 06-12-2022 ambulatory DO Alice Luna-Emmons Work Phone: [facility] Work Phone: Start: 06-12-2022 End: 06-12-2022 Patient encounter procedure DO Alice Luna-Emmons Work Phone: [facility] Work Phone: Start: 05-30-2022 End: 05-31-2022 ambulatory ALICE LUNA KIRSTENY Facility: Start: 05-21-[address] Alice Luna-Eliot Facility:[facility] Start: 05-14-2022 End: 05-14-2022 ambulatory ALICE LUNA EMERY Facility: Start: 05-10-[address] Alice Luna-Eliot Facility:[id number] Start: 05-07-2022 End: 05-07-2022 ambulatory DO Alice Luna-Emmons Work Phone: [facility] Work Phone: Start: 05-07-2022 End: 05-07-2022 Patient encounter procedure DO Alice Luna-Emmons Work Phone: [facility]Electrodiagnostics Work Phone: Start: 05-02-2022 End: 05-02-2022 Emergency department patient visit DO Alice Polo Work Phone: [facility]Emergency [facility] Work Phone: Start: 05-02-2022 End: 05-03-2022 ambulatory ALICE FERRER Facility:[facility]1 Start: 04-16-2022 End: 04-16-2022 ambulatory ALICE FERRER Facility:[facility]1 Start: 02-07-2022 End: 02-08-2022 ambulatory ALICE FERRER Facility:[facility]1 Start: 11-15-2021 End: 11-16-2021 ambulatory JONI CANELAIS . Facility:[facility] Start: 11-09-2021 End: 11-09-2021 Emergency department patient visit DO Alice Polo Work Phone: [facility] Start: 10-16-2021 End: 10-16-[address] ARNAV COREA . Facility:[facility]1 Start: 10-11-2021 End: 10-11-2021 ambulatory Ken Ortiz Other [employer] Other Start: 10-11-2021 Telephone encounter Ken Ortiz [facility] Start: 10-04-2021 End: 10-04-2021 Patient encounter procedure DO Alice Polo Work Phone: [facility] [place] Start: 10-03-2021 End: 10-03-2021 ambulatory Ken Ortiz Other [employer] Other Start: 10-03-2021 Telephone encounter Ken Ortiz [facility] Start: 09-20-2021 End: 09-21-2021 ambulatory JONI MAHMOOD . Facility:[facility]1 Start: 02-26-2021 End: 02-26-2021 ambulatory Ken Ortiz Other [facility] Other Start: 02-26-2021 Telephone encounter Ken Ortiz [facility] Start: 12-20-2020 Office outpatient visit 25 minutes Ken Ortiz [facility] Gastroenterology Procedures Date Procedure Procedure Detail Performing Clinician Start: 12-23-2022 Mammography Alice Polo DO Work Phone: Start: 09-03-2022 Esophagogastroduodenoscopy DO Alice Polo Work Phone: Start: 05-02-2022 Plain chest X-ray DO Alice Polo Work Phone: Start: 11-09-2021 CT of facial bones without contrast DO S lovera Polo Work Phone: Start: 12-29-2020 Colonoscopy Alice Polo DO Work Phone: Plan of Treatment Date Care Activity Detail Author Start: 12-29-2030 Screening for malignant neoplasm of colon [facility] Healthcare Start: 04-27-2024 End: 04-27-2024 Patient encounter procedure 04/27/2024 10:00 AM EST Office Visit [facility] [address] [place] [id number] Alice Polo, DO [address] [place] [address] [facility] Start: 12-24-2023 Screening for malignant neoplasm of breast Mammogram [facility] Start: 04-28-2023 End: 04-28-2023 Patient encounter procedure 04/28/2023 9:30 AM EST Office Visit [facility] [address] [place] [id number] Paul Mcgrath, DO [address] [place] [address] BMI 29.0-29.9,adult [facility] Comment on above: BMI 29.0-29.9,adult Start: 09-03-2022 [facility] Start: 1960 Screening for malignant neoplasm of colon [facility] Patient Education [facility] Work Phone: Patient referral [facility] Work Phone: Immunizations Immunization Date Immunization Notes Care Provider Meseret peteydivina 12-25-2022 RSV, recombinant, protein subunit RSVpreF, adjuvant reconstitu, 120mcg/0.5mL, PF (Arexvy) Alice Luna-Emmons DO Work Phone: [facility] 05-28-2021 zoster vaccine recombinant Alice Luna-Emmons DO Work Phone: [facility] 02-07-2021 zoster vaccine recombinant Alice Luna-Emmons DO Work Phone: [facility] 06-29-2020 COVID-19 mRNA, Comirnaty (Pfizer) DO Alice Jeremy-Emmons Work Phone: [facility] 06-09-2020 COVID-19 mRNA, Comirnaty (Pfizer) DO Alice Luna-Emmons Work Phone: [facility] 06-29-2015 tetanus toxoid, redu yoselin diphtheria toxoid, and acellular pertussis vaccine, adsorbed Alice Jeremy-Emmons DO Work Phone: [facility] Healthcare Payers Date Payer Category Payer Self-pay [id number] 2020 Medicaid [employer] [place] [id number] 2020-Present [address] [place] [address] [id number] 1960 Unknown [id number] 2.16.840.1.237809.3.579.2. 356 1962 Unknown [id number] 2.16.840.1.313804.3.579.2. 593 1962 Unknown [id number] 2.16.840.1.098100.3.579.2. 593 1962 Unknown [id number] 2.16.840.1.966323.3.579.2. 593 1962 Unknown [id number] 2.16.840.1.289802.3.579.2. 593 1962 Unknown [id number] 2.16.840.1.649979.3.579.2. 593 1962 Unknown [id number] 2.16.840.1.512771.3.579.2. 593 1962 Unknown [id number] 2.16.840.1.229190.3.579.2. 59 1962 Unknown [id number] 2.16.840.1.774319.3.579.2. 593 1962 Unknown [id number] 2.16.840.1.728556.3.579.2. 59 1962 Unknown [id number] 2.16.840.1.320758.3.579.2. 593 1962 Unknown [id number] 2.16.840.1.985138.3.579.2. 59 1962 Unknown [id number] 2.16.840.1.578009.3.579.2. 125 1962 Unknown [id number] 2.16.840.1.664995.3.579.2. 125 1962 Unknown [id number] 2.16.840.1.242180.3.579.2. 1259 1962 Unknown [id number] 2.16.840.1.148735.3.579.2. 125 1962 Unknown [id number] 2.16.840.1.569680.3.579.2. 1259 1962 Unknown [id number] 2.16.840.1.782369.3.579.2. 1259 1962 Unknown [id number] 2.16.840.1.685807.3.579.2. 9 1962 Unknown [id number] 2.16.840.1.066179.3.579.2. 9 1962 Unknown [id number] 2.16.840.1.316386.3.579.2. 9 1962 Unknown [id number] 2.16.840.1.478006.3.579.2. 9 1962 Unknown [id number] 2.16.840.1.143704.3.579.2. 1259 1959 Medicaid [id number] 1959 Unknown [id number] 2.16.840.1.880926.19 Private Health Insurance [id number] Unknown [place] BC/BS [id number] Unknown HCAP/HFA/FAP Active [id number] Unknown [id number] 2.16.840.1.321896.3.579.2. 531 Unknown [id number] 2.16.840.1.694208.3.579.2. 531 Social History Date Type Detail Facility Start: 04-24-2023 End: 05-05-2023 Sex Assigned At [facility] Work Phone: Start: 11-09-2021 Tobacco smoking stat us [facility] Never smoked tobacco (finding) [facility] Start: 1960 Sex Assigned At Female F [facility] Start: 05-02-2022 End: 09-03-2022 Tobacco smoking status LAIS Ex-smoker (finding) [facility] End: 03-24-2012 History of tobacco use Current smoker [facility] End: 03-24-2012 History of tobacco use Cigarette Smoker [facility] Start: 01-08-2023 Tobacco use and exposure Smokeless tobacco non-user [facility] Start: 04-27-2023 End: 05-05-2023 Alcohol intake Current drinker of alcohol (finding) [facility] Start: 04-24-2023 End: 05-05-2023 History of [...] 04-24-2023 Alcohol Comment [facility] a week [facility] Start: 12-04-2022 Gender identity Identifies as female gender (finding) [facility] Medical Equipment Procedure Code Equipment Code Equipment Origin al Text Equipment Identifier Dates Tendon repair Tendon/ligament bone anchor, non-bioabsorbable ([id number] [facility] Start: 12-10-2018 Goals Date Patient Goal Desired Activity /State Clinical Notes 12-20-2020 to 05-08-2023 Paul Mcgrath, DO - 05/08/2023 2:30 PM Myrtle Polo, DO - 04/27/2023 6:53 PM Myrtle Polo, DO - 04/27/2023 6:52 PM ESTSlove Polo, DO - 04/27/2023 6:51 PM EST [...] per pt. COLONOSCOPY 12/29/2020 Normal EGD 10/31/2015 EGD/Brielle done by Dr. Ortiz (stenosis of upper [...] LIGATION Dr. Ba WISDOM TOOTH EXTRACTION 1981 [place] teeth impacted Family History Problem Relation Name Age of Onset Depression Mother Michela Garrett,Ken Garrett(father), Ronni Garrett (b Hyperthyroidism Mother Michelamyra GarrettKen Garrett(father), Ronni Garrett (b Osteoporosis Mother Michela TamiKen Garrett(father), Rnoni Garrett (b Osteoarthritis Mother Michela GarrettKen Garrett(father), Ronni Garrett (b Stroke Mother Michela CardenasttKen Garrett(father), Ronni Garrett (b Alcohol abuse Father KEN GARRETT Other (brain tumor) Father KEN GARRETT benign brain tumor with shunt due to hydrocephalus Asthma Father KEN GARRETT Heart failure Brother Ronni Garrett CHF Coronary artery disease Brother Ronni Garrett 48 Atrial fibrillation Brother Ronni Garrett 48 Depression Brother Ronni Garrett Severe Depression Heart attack Paternal Grandfather Acute CA No Known Problems Daughter Healthy Ulcerative colitis Son Melanoma Neg Hx OB History Para Term AB Living 3 3 0 0 0 3 SAB IAB Ectopic Multiple Live Births 0 0 0 0 3 # Outcome Date GA Lbr Indio/2nd Weight Sex Delivery Anes PTL Lv 3 Para 2 Para 1 Para Obstetric Comments Pap 05-21-21, Neg. Neg. 09-02-18, Neg. Tamika 12-23-2022 Neg., [facility] -12-06-21, Neg. ([facility]) Colonoscopy 12-29-2020 Neg. Review of Systems All [...] yeast vaginitis-Rx diflucan. documented in this encounter [facility] 04-27-2023 History of Presen t illness [...] esophagitis Postmenopausal Depression, major, in remission (HCC) ([facility]) Hormone replacement therapy Review of Systems Constitutional: [...] . Postmenopausal Depression, major, in remission (HCC) ([facility]) Overview Prescribed citalopram Current Assessment & Plan -Pt is doing well at this time on current dose of celexa. Based on review of patient's medications and current medical status; continuation of medications most appropriate. Compliance with medications and/or management recommendations encouraged. Monitor Hormone replacement therapy Overview Prescribed estradiol 0.5 mg daily by DIAGNOSTIC MEDICAL SONOGRAPHER/Dr Mcgrath Other Visit Diagnoses Encounter for preventative [...] Annual Physical. Alice Polo D.O. 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 SHE REPORTS MAYBE ONCE A WEEK WITH A FLARE OF SYMPTOMS. PATIENT CAN USE PEPCID OTC OR TUMS. [facility] Other 03-09-2023 NoteCONSULTATION CONSULTATION DATE: 05/30/2022 HISTORY [...] for re-evaluation. Patient agrees with this plan.[facility] [id number] NotePROCEDURE: XR HIP LT 2 3V WO [...] authenticated by: GENESIS BELLO Date: 2022-05-02 14:36[facility] [id number] NoteCONSULTATION CONSULTATION DATE: 05/02/2022 HISTORY OF PRESENT [...] completed 10 treatments of physical therapy in [place]. The patient does state, at the end [...] followed up in the office post procedure.[facility] [id number] NoteCONSULTATION CONSULTATION DATE: 02/07/2022 HISTORY OF PRESENT [...] review her thoracic x-ray at that time.[facility] [id number] NoteCONSULTATION CONSULTATION DATE: 11/15/2021 This is a [...] indicated. The patient does agree to this.[facility] [id number] Evaluation note* Encounter Date Diagnosis Assessment Notes Treatment Notes Treatment Clinical Notes Sep, Irritable bowel syndrome with both constipation and diarrhea (ICD-10 - K58.2) Sep, GERD (gastroesophageal reflux disease) (ICD-10 - K21.9) Sep, Bloating (ICD-10 - R14.0) [facility] Other 06-30-2022 NoteCONSULTATION CONSULTATION DATE: 09/20/2021 This [...] She has been missing days at the obstetrics gyn recently due to her pain. She describes [...] be followed up it the clinic post-procedure. [facility] Signed and Approved by: JONI MAHMOOD . 09/27/2021 16:26:00[facility]12-06-2021 Evaluation note* Encounter Date Diagnosis Assessment Notes Treatment Notes Treatment Clinical Notes Feb, GERD (gastroesophageal reflux disease) (ICD-10 - K21.9) [facility] Other 09-29-2021 Evaluation note* Encounter Date Diagnosis Assessment Notes Treatment Notes Treatment Clinical Notes Nov, GERD (gastroesophage al reflux disease) (ICD-10 - K21.9) GERD home care material was printed EGVingle CARConergyATE 1 GRAM TID Nov, Irritable bowel synd john with both constipation and diarrhea (ICD-10 - K58.2) Nov, Pharyngoesophageal dysphagia (ICD-10 - R13.14) [facility] Other Evaluation noteNo InformationNort [employer] Other Evaluation noteNo assessment information available [facility] Work Phone: Evaluation note* Diagnosis Encounter for preventative adult health care examination- Primary Arthritis, lumbar spine Depression, major, in remission (HCC) ([facility]) Gastroesophageal reflux disease without esophagitis Esophageal reflux Postmenopausal Asymptomatic postmenopausal status (age-related) (natural) Hormone replacement therapy Class 1 obesity BMI 29.0-29.9,adult documented in this encounter [facility] HealthcareEvaluation note* Diagnosis Body mass index (BMI) 28.0-28.9, adult Abnormal weight gain Yeast infection BMI 29.0-29.9,adult documented in this encounter [facility] HealthcareEvaluation note* Diagnosis Onset Date Resolution Status GERD (gastroesophageal reflux disease) acute [facility] Work Phone: Evaluxfovc note* Diagnosis Onset Date Resolution Status GERD (gastroesophageal reflux disease) acute BMI 27.0-27.9,adult acute Chronic intermittent hypoxia with obstructive sleep apnea acute GERD (gastroesophageal reflux disease) acute Intolerance to BiPAP/CPAP ac [place] Obstructive sleep apnea acut e [facility] Work Phone: Hisfluy general Narrative - Reported* Type Description Date Medical History Gastroesophageal Reflux Disease Medical History Anxiety/Depression Medical History seasonal asthma Surgical History Caesarean Section X 3 Surgical History Tonsillectomy/Adenoidectomy Surgical History Laparoscopy Surgical History Hysteroscopy/Endometrial Ablati on Surgical History Laparoscopy Cholecystectomy Surgical History [facility] tenton interposition Arthro plasty 2019 Hospitalization History See Above [facility] Other Hisfexg general Narrative - ReportedNocox branson [employer] Other Hisogkm general Narrative - Reported* Type Description Date [...] History ablasion-LUMBAR NERVE Hospitalization History See Above [facility] Other Hospital Discharge instructions Additional Instructions Follow up with your primary care doctor Return to the ED If you develop worsening symptoms or concerns[facility] Work Phone: Chief Complaint and [...] Active Edison Monroe MD Attending Provider Active [employer] Relationship Specialty Start Date End Date MarkAlice Ferrer, DO [address] [place] [address] PCP - General Internal Medicine 07/30/22 [employer] Relationship Specialty Start Date End Date MarkAlice Ferrer, DO [address] [place] [address] PCP - General Internal Medicine 07/30/22 Team Status: Inactive Member Role Status Dates Alice Polo , DO Primary Care Provider Active Start: July 11, 2023 End: July 11, 2023 Gabe Gonzalez APRN Attending Provider Active Start: July 11, 2023 End: July 11, 2023 Team Status: Inactive Member Role Status Dates Alice Polo , DO Primary Care Provider Active Start: July 31, 2023 End: July 31, 2023 Ken Mendez MD Attending Provider Active S tart: July 31, 2023 End: July 31, 2023 Team Status: Inactive Member Role Status Dates Alice Polo , DO Primary Care Provider Active Start: August 27, 2023 End: August 27, 2023 Ken Mendez MD Attending Provider Active S tart: August 27, 2023 End: August 27, 2023 Goals (unrecognized section and content) Goals may be documented in a n alternate section INFORMATION SOURCE (unrecogn ized section and content) DATE CREATED AUTHOR 12/21/2021 [facility] dical Specialist DATE CREATED AUTHOR AUTHOR'S ORGANIZ ATION 05/25/2022 [facility] DATE CREATED AUTHOR AUTHOR'S ORGANIZ ATION 06/05/2022 [facility] DATE CREATED AUTHOR AUTHOR'S ORGANIZ ATION 09/05/[address] [facility] DATE CREATED AUTHOR AUTHOR'S ORGANIZ ATION 11/20/2023 [facility] dical Specialists [facility] FOR RECORDS PERTAINING TO PATIENTS WHO [...] BE BASED ON THE PRIMARY CLINICAL RECORDS. [facility] [employer] [facility]. provides no warranty or guarantee of the accuracy or completeness of information in this document.
== END 2024-01-14 11:06 | disposition home or self-care (01) ==
LOC: PM 11:05
PROVIDERS: PCP Internal Medicine; Visit Provider Nurse Practitioner
DX: M46.1 Sacroiliitis, not elsewhere classified (principal); M48.062 Spinal stenosis, lumbar region with neurogenic claudication; M47.816 Spondylosis without myelopathy or radiculopathy, lumbar region; M62.838 Other muscle spasm; M54.16 Radiculopathy, lumbar region
CPT/HCPCS: G0463

== ENCOUNTER 2024-07-15 10:54 | Outpatient (OUT) | payer OTHER, SELFPAY ==
--- NOTE | 2024-07-15 11:25 | PM.CN ---
Consult Note: HPI Data of Consult Patient: known to practice within the last 3 years Requesting Physician: Jordyn Schroeder NP Primary Care Provider: PETER FERRER Consult Narrative Reason for consult: f/u Narrative: Flores Georges a pleasant 64 year old female with chronic back pain. Patient reporting pain 3/10 intermittent in left low back and left leg Pain increasing to 8/10 with standing, walking, activity. pain improves with forward flexion and sitting. Finds mild improvement from motrin and baclofen 5-10mg PRN without side effects. Continues to engage in provider guided HEP greater than 6 weeks with mild benefit. patient trialed TENS without benefit, she has attended >10 youth career specialist visits with moderate benefit. continues to engage in provider guided HEP 2x/week > 6 weeks for neck and low back pain. Pt reports >50% improvement from prior lumbar TED and would like to discuss repeating. cc:: CC: Jordyn Schroeder NP Review of Systems ROS Status of ROS 10 or more systems reviewed and unremarkable except as noted in history and below Musculoskeletal Reports: back pain, extremity pain and joint pain PFSH PFSH Medical History Surgical History H/O hand surgery ?Z98.890 - Other specified postprocedural states (ICD-10) History of cholecystectomy ?Z90.49 - Acquired absence of other specified parts of digestive tract (ICD-10) H/O: hysterectomy ?Z90.710 - Acquired absence of both cervix and uterus (ICD-10) Meds Home Medications and Allergies Home Medications ?Medication ?Instructions ?Recorded ?Confirmed ?Type baclofen 10 mg tablet 10 mg PO DAILY 08/29/22 10/07/23 History citalopram 20 mg tablet (Celexa) 20 mg PO DAILY 08/29/22 10/07/23 History estradiol 1 mg tablet (Estrace) 1 mg PO DAILY 08/29/22 10/07/23 History omeprazole 40 mg capsule,delayed 40 mg PO DAILY 08/29/22 10/07/23 History release phentermine 37.5 mg tablet 37.5 mg PO DAILY 10/07/23 10/07/23 History (Adipex-P) Allergies Allergy/AdvReac Type Severity Reaction Status Date / Time Sulfa (Sulfonamide Allergy Mild Unknown Verified 10/07/23 08:05 Antibiotics) Exam Constitutional Documenting provider has reviewed patient's vital signs: yes Common normals: no apparent distress, oriented x3, healthy appearing, alert and well nourished General appearance: cooperative HENAL Common normals: normocephalic, hearing grossly normal bilaterally and moist oral mucous membranes Head and scalp: normocephalic Eye Common normals: PERRL Pupil: PERRL Neck & C-Spine Common normals: full ROM General: normal visual inspection Cervical spine: cervical ROM abnormal, pain with cervical ROM and cervical spine tenderness Chest Common normals: inspection of chest normal Respiratory Common normals: normal respiratory effort, no retractions and no use of accessory muscles Back & Pelvis Thoracic spine/upper back: normal to inspection, paraspinal muscle tenderness and paraspinal muscle spasm Lumbar spine/lower back: normal to inspection, paraspinal muscle tenderness, paraspinal muscle spasm, straight leg raise positive right and straight leg raise positive left Sacroiliac joints: SI joint(s) abnormal Other: strength 4/5 in LLE 5/5 in RLE heaviness/weakness in bilateral legs with standing walking and stairs negative facet loading left > right SIJ positive carlyle(patricks), gaenslens, thigh thrust, compression test Extremity Common normals: normal to inspection and full ROM Neuro Common normals: oriented x3, CN's II-XII intact bilaterally and moves all extremities Sensorium/orientation: alert Motor exam: no movement abnormalities noted Psych Common normals: mental status grossly normal, thought process normal, cooperative, affect normal, speech normal and activity/motor behavior normal Speech: normal speech Thought process: normal thought process Assessment and Plan Assessment and Plan (1) Lumbar stenosis with neurogenic claudication: Assessment and Plan: The patient has had over 3 months of moderate to severe neck and low back pain with functional impairment and inadequate response to conservative care including NSAIDS (unless there are contraindication such as concurrent blood thinners), multiple oral or topical pain medications, and home exercise program/physical therapy.? Patient has completed >6 weeks of guided home exercise program and/or formal physical therapy program without relief of their symptoms.? I have reviewed the imaging of the cervical and lumbar spine and no red flags were identified.? The imaging reveals radiographic findings consistent with cervical/lumbar spondylosis and lumbar radiculopathy/stenosis with NC The Oswestry Disability Index was completed, and the patient scored a 20%.? The patient noted the following:?? moderate to severe pain with standing, walking, ADLs We discussed the risks and benefits of the procedure with the patient, and we are NOT planning on using sedation as outlined in the guidelines from Medicare unless there is a documented reason that sedation would be strongly recommended.??The procedure will be completed with fluoroscopic guidance.? (2) Sacroiliitis: (3) Lumbar spondylosis: (4) Muscle spasm: (5) Lumbar radiculopathy: (6) Cervical spondylosis: Plan left L4-5 L5-S1 TFESI under fluoroscopy consider SIJ injection if SIJ pain persists continue current medications, denies side effects continue HEP as tolerated continue youth career specialist PRN f/u 2 weeks after TED
== END 2024-07-15 10:55 | disposition home or self-care (01) ==
LOC: PM 10:55
PROVIDERS: PCP Internal Medicine; Visit Provider Nurse Practitioner
DX: M48.062 Spinal stenosis, lumbar region with neurogenic claudication (principal); M46.1 Sacroiliitis, not elsewhere classified; M47.816 Spondylosis without myelopathy or radiculopathy, lumbar region; M62.838 Other muscle spasm; M54.16 Radiculopathy, lumbar region; M47.812 Spondylosis without myelopathy or radiculopathy, cervical region
CPT/HCPCS: G0463

== ENCOUNTER 2024-08-09 07:44 | Day surgery (SDC) | payer OTHER, SELFPAY ==
--- OUTSIDE RECORDS SUMMARY | 2024-08-09 07:48 | XMS_ITS | CCD ---
Author Organization [facility] Care Team Providers Care Cpr Instructor Name Role Phone Ken Ortiz Unavailable DO Alice Polo Primary Care Provider DO Ken Ortiz Attending Provider TOMMIE Heller Emergency Provider [phone] DO Alice Polo Primary Care Provider DO Oswaldo Deleon Emergency Provider DO Alice Polo Attending Provider [phone] Dr. Alice Polo Primary [facility] Dr[facility] Alice Polo Primary [facility] COREA ., DR ARNAV Martínez Attending Unavailable COREA ., DR ARNAV Martínez Admitting Unavailable COREA ., DR ARNAV Martínez Consulting Unavailable [facility] Primary Care Unavailable MAHMOOD .JONI Consulting Unavailable RAHEEL ., DR ARNAV Martínez Attending Unavailable COREA ., DR ARNAV Martínez Admitting Unavailable [facility] Primary Care Unavailable MAHMOOD ., JONI Consulting Unavailable COREA ., DR ARNAV Martínez Attending Unavailable COREA ., DR ARNAV Martínez Admitting Unavailable [facility] Primary Care Unavailable LAKSHMIPATHY ., NARENDRANATH Admitting [place] LAKSHMIPATHY ., NARENDRANATH Attending [place] [facility] Primary Care Unavailable COREA ., DR ARNAV Martínez Consulting Unavailable COREA ., DR ARNAV Martínez Attending Unavailable COREA ., DR ARNAV Martínez Admitting Unavailable COREA ., DR ARNAV Martínez Attending Unavailable COREA ., DR ARNAV Martínez Admitting Unavailable MISC, DR Consulting Unavailable LUNA EMERY, ALICE Primary Care [...] Care Unavailable CRISOSTOMOROLAN REED Consulting Unavailable LUNA EMERY, ALICE Primary Care [...] LUNA EMERY, ALICE Primary Care Unavailable DO Melani Alice Primary Care Provider DO Oswaldo Deleon Emergency Provider DO Alice Polo Attending Provider [phone] DO Alice Polo Referring Provider [phone] MD Ken Mendez Attending Provider [phone] Edison Monroe Unavailable DO Alice Polo Primary Care Provider [phone] MD Edison Monroe Attending Provider [phone] CRISTEL Perez Attending Provider [phone] Gabe Gonzalez Unavailable Alice Pool DO Primary Care Provider DO Susy Polora Primary Care Provider MD Ken Mendez Attending Provider Alice Polo DO Unavailable Alice Polo DO Unavailable Luna-Alice Ferrer DO Primary Care Provider Johnny Tejada MD Attending Provider Ken Mendez Admitting Unavailable Ken Mendez Attending Unavailable Luna-Eliot, Alice Primary Care Unavailable Johnny Tejada Admitting Unavailable Johnny Tejada Attending Unavailable Luna-Eliot Alice Primary Care Unavailable RESERVANDO SIGIFREDO R Attending Unavailable DIDIONADRY Referring Unavailable LUNA-EMERY, ALICE D Referring Unavailab le DIDIONADRY Attending Unavailable VISCIALMA Referring Unavailable LUNA-EMERMaci, ALICE D Referring Unavailab le DIDIONADRY Attending Unavailable LUNA-ALICE FERRER Attending Unavailab le LUNA-EMERY ALICE D Referring Unavailab le VISCIALMA Attending Unavailable VISCALMA Dupree Attending Unavailable Allergies Allergy Classification Reported Allergen(s) Allergy Type Date of Onset Reaction(s) Facility (1 source) Sulfonamides (Antibiotic) Drug allergy (disorder) [facility] (2 sources) Sulfonamides (Antibiotic); Translations: [Sulfa (Sulfonamide Antibiotics)] Allergy to substance 3 [facility] (15 sources) Sulfonamides (Antibiotic) Drug Allergy 3 Hives, Rash [facility] (5 sources) celecoxib Drug Allergy 5 Other [facility] Work Phone: Medications Current Medications Medication Drug Class(es) Dates Sig (Normalized) Sig (Original) baclofen 10 mg oral tablet (20 sources) gamma-Aminobutyric Acid-ergic Agonist Start: 11-25-2020 Baclofen 10 mg tablet Active 10 MG PO As Directed as needed for Pain November 25, 2020 12:00am baclofen (Liores al) 5 MG tablet Take 5 mg by mouth as needed at bedtime Active Baclofen Active citalopram 20 mg oral tablet (20 sources) Serotonin Reuptake Inhibitor Start: 07-26-2024 Citalopram 20 mg tablet Active 30 MG PO Daily July 26, 2024 9:04am Start: 02-09-2024 End: 02-08-2025 take 1 tablet by mouth once daily citalopram (CeleXA) 10 MG tablet Indications: Anxiety, generalized (CMS/HCC) Take 1 tablet (10 mg) by mouth Daily With 20mg to equal 30mg daily 90 tablet 3 02/09/2024 02/08/2025 Active Start: 12-18-2023 End: 12-17-2024 take 1 tablet by mouth once daily citalopram (CeleXA) 40 MG tablet Indications: Anxiety as acute reaction to exceptional stress (CMS/HCC) , Mild depression (CMS/HCC) Take 1 tablet (40 mg) by mouth Daily 90 tablet 1 12/18/2023 02/09/2024 Discontinued (Dose adjustment) Start: 09-03-2022 End: 02-08-2025 take 1 tablet by mouth in the morning citalopram (CeleXA) 20 MG tablet Indications: Anxiety, generalized (CMS/HCC) TAKE 1 TABLET BY MOUTH IN THE MORNING 90 tablet 05/10/2024 Active Start: 04-20-2018 End: 09-03-2022 take 2 tablets by mouth once daily Citalopram (Celexa) 10 mg Tablet Discontinued 20 MG PO Daily April 20, 2018 1:00am September 03, 2022 12:15pm clobetasol propionate 0.5 mg/ml topical cream (17 sources) Corticosteroid Start: 02-09-2024 clobetasol (Te movate) 0.05 % cream Indications: Lichen sclerosus Apply topically 2 (two) times a day 30 g 2 02/09/2024 Active End: 02-09-2024 clobetasol (Temovate) 0.05 % cream Apply topically 2 (two) times a day. 02/09/2024 Discontinued (Reorder) doxycycline hyclate 100 mg oral capsule (20 sources) Tetracycline-class Drug Start: 02-16-2024 End: 02-26-2024 doxycycline (Vibramycin) 100 MG capsule Indications: Lower respiratory tract infection Take 1 capsule (100 mg) by mouth in the morning and 1 capsule (100 mg) before bedtime. Do all this for 10 days. Take with at least 8 ounces (large glass) of water, do not lie down for 30 minutes after. 20 capsule 02/16/2024 02/26/2024 Active Start: 05-26-2018 take 1 capsule by mo [facility] every twelve hours Doxycycline Hyclate 100 MG 1 capsule Orally every 12 hrs for 7 days May, Not-Taking Start: 04-27-2018 End: 12-10-2018 take 1 tablet by mouth twice daily Doxycycline Hyclate 100 mg tablet Discontinued 100 MG PO Twice daily 10 December 10, 2018 12:00am December 10, 2018 10:44am estradiol 1 mg oral tablet (20 sources) Estrogen Start: 07-26-2024 take 0.5 mg by mouth once daily Estradiol 1 mg tablet Active 0.5 MG PO Daily July 26, 2024 9:04am Start: 12-11-2022 End: 02-08-2025 take 1 tablet by mouth once daily estradiol (Estrace) 0.5 MG tablet Indications: Postmenopausal HRT (hormone replacement therapy) Take 1 tablet (0.5 mg) by mouth Daily 90 tablet 3 02/09/2024 02/08/2025 Active Start: 04-20-2018 End: 07-26-2024 take 1 tablet by mouth once daily Estradiol 1 mg tablet Discontinued 1 MG PO Daily April 20, 2018 1:00am July 26, 2024 9:05am take 0.5 tablet by m [facility] once daily Estradiol 0.5 MG 1/2 TABLET Orally DAILY Active fluconazole 150 mg oral tablet (6 sources) Azole Antifungal Start: 02-16-2024 End: 02-17-2024 fluconazole (Diflucan) 150 MG tablet Indications: Side effect of medication Take 1 tablet (150 mg) by mouth See administration instructions for 1 day Take one tab now. Repeat in 72 hours if symptoms persist. 2 tablet 02/16/2024 02/17/2024 Active Start: 11-18-2023 End: 11-18-2023 fluconazole (Diflucan) 150 M G tablet Indications: Vaginal itching Take 1 tablet (150 mg) by mouth 1 (one) time for 1 dose Repeat in 7 days if symptoms persist. 2 tablet 11/18/2023 11/18/2023 Active Start: 05-08-2023 fluconazole (D iflucan) 150 MG tablet Indications: Vulvovaginal Candidiasis 1 tab now-repeat in 4-7 days if needed. 2 tablet 0 05/08/2023 Active fluticasone (20 sources) Corticosteroid Start: 07-11-2023 fluticasone pr opionate (Flonase) Active INTRANASAL July 11, 2023 12:00am Start: 02-01-2023 End: 08-05-2024 take 1 spray(s) nasal route once daily as needed fluticasone (Flonase) 50 MCG/ACT nasal spray Administer 1 spray into each nostril Daily as needed 02/01/2023 08/05/2024 Discontinued Start: 02-01-2023 take 1 spray(s) nasa l route in the morning fluticasone (Flonase) 50 MCG/ACT nasal spray Administer 1 spray into each nostril in the morning. 02/01/2023 Active pantoprazole 40 mg delayed release oral tablet (20 sources) Proton Pump Inhibitor Start: 10-11-2021 End: 07-26-2024 Pantoprazole 40 mg tablet,delayed release (DR/EC) Active 40 MG PO Twice daily 60 30 July 26, 2024 2:01pm Take 1 tablet orally 30 minutes before morning meal and 30 minutes before evening meal. Start: 10-11-2021 End: 09-03-2022 take 1 tablet by mouth once daily Pantoprazole 40 mg tablet,delayed release (DR/EC) Discontinued 40 MG PO Daily November 09, 2021 12:00am September 03, 2022 1:20pm rifAXIMin 550 mg oral tablet (1 source) Rifamycin Antibacterial Start: 10-11-2021 take 1 tablet by mouth every eight hours Xifaxan 550 MG 1 tablet Orally Three times a day for 14 days Sep, Active Completed/Discontinued Medications Medication Drug Class(es) Dates Sig (Normalized) Sig (Original) acetaminophen 325 mg / HYDROcodone bitartrate 5 mg oral tablet (20 sources) Opioid Agonist Start: 12-10-2018 End: 12-10-2018 take 1 tablet by mouth every four to six hours as needed for pain Hydrocodone-Acetami nophen ([place]) 5-325 mg tablet Discontinued 1 - 2 TAB PO EVERY 4-6 HOURS as needed for Pain 50 7 December 10, 2018 December 10, 2018 10:44am Start: 12-10-2018 End: 12-10-2018 take 1 tablet by mouth every four to six hours as needed for pain Hydrocodone-Acetaminophen ([place]) 5-325 mg tablet Discontinued 1 - 2 TAB PO EVERY 4-6 HOURS as needed for Pain 50 7 December 10, 2018 December 10, 2018 10:44am Start: 12-10-2018 End: 12-10-2018 take 1 tablet by mouth every four to six hours as needed for pain Hydrocodone-Acetaminophen ([place]) 5-325 mg tablet Discontinued 1 - 2 TAB PO EVERY 4-6 HOURS as needed for Pain 50 7 December 10, 2018 December 10, 2018 10:44am Start: 12-10-2018 End: 12-10-2018 take 1 tablet by mouth every four to six hours Hydrocodone-Acetaminophen ([place]) 5-325 mg tablet Discontinued 1 - 2 TAB PO EVERY 4-6 HOURS 50 7 December 10, 2018 December 10, 2018 10:44am Start: 12-10-2018 End: 12-10-2018 take 1 tablet by mouth every four to six hours Hydrocodone-Acetaminophen ([place]) 5-325 mg tablet Discontinued 1 - 2 TAB PO EVERY 4-6 HOURS 50 7 December 10, 2018 December 10, 2018 10:44am Start: 12-10-2018 End: 12-10-2018 take 1 tablet by mouth every four to six hours Hydrocodone-Acetaminophen ([place]) 5-325 mg tablet Discontinued 1 - 2 TAB PO EVERY 4-6 HOURS 50 7 December 10, 2018 December 10, 2018 10:44am Start: 12-10-2018 End: 12-10-2018 take 1 tablet by mouth every four to six hours Hydrocodone-Acetaminophen ([place]) 5-325 mg tablet Discontinued 1 - 2 TAB PO EVERY 4-6 HOURS 50 7 December 10, 2018 December 10, 2018 10:44am Start: 12-10-2018 End: 12-10-2018 take 1 tablet by mouth every four to six hours Hydrocodone-Acetaminophen ([place]) 5-325 mg tablet Discontinued 1 - 2 TAB PO EVERY 4-6 HOURS 50 7 December 10, 2018 December 10, 2018 10:44am Start: 12-10-2018 End: 12-10-2018 take 1 tablet by mouth every four to six hours Hydrocodone-Acetaminophen ([place]) 5-325 mg tablet Discontinued 1 - 2 TAB PO EVERY 4-6 HOURS 50 7 December 10, 2018 December 10, 2018 9:44am Start: 12-10-2018 End: 12-10-2018 take 1 tablet by mouth every four to six hours Hydrocodone-Acetaminophen ([place]) 5-325 mg tablet Discontinued 1 - 2 TAB PO EVERY 4-6 HOURS 50 December 10, 2018 December 10, 2018 9:44am Start: 12-10-2018 End: 12-10-2018 take 1 tablet by mouth every four to six hours Hydrocodone-Acetaminophen ([place]) 5-325 mg tablet Discontinued 1 - 2 TAB PO EVERY 4-6 HOURS 50 December 10, 2018 December 10, 2018 10:44am Start: 04-27-2018 End: 12-10-2018 take 1 tablet by mouth every four to six hours as needed for pain Hydrocodone-Acetaminophen ([place]) 5-325 mg tablet Discontinued 1 - 2 TAB PO EVERY 4-6 HOURS as needed for Pain 50 April 27, 2018 December 10, 2018 10:43am acetaminophen 325 mg / oxyCODONE hydrochloride 5 mg oral tablet (11 sources) Opioid Agonist Start: 11-09-2021 End: 05-02-2022 take 1 tablet by mouth every six hours as needed for pain Oxycodone-Acetaminophen (Percocet) 5-325 mg tablet Discontinued 1 TAB PO Q6H as needed for pain 10 3 November 09, 2021 May 02, 2022 8:17pm [id number] 200 actuat albuterol 0.09 mg/actuat metered dose inhaler (11 sources) beta2-Adrene rgic Agonist Start: 02-16-2024 End: 08-05-2024 take 2 puff(s) by inhalation every six hours for wheezing albuterol HFA (Ventolin HFA) 90 mcg/act inhaler Indications: Shortness of breath Inhale 2 puffs every 6 (six) hours if needed for wheezing or shortness of breath 8 g 1 02/16/2024 08/05/2024 Discontinued Albuterol Sulfat e (2.5 MG/3ML) 0.083% 3 ml Inhalation Four times a day Not-Taking ALPRAZolam 0.5 mg oral tablet (3 sources) Benzodiazepine Start: 12-18-2023 End: 02-09-2024 take 1 tablet by mouth three times daily as needed for anxiety ALPRAZolam (Xanax) 0.5 MG tablet Indications: Anxiety as acute reaction to exceptional stress (CMS/HCC) Take 1 tablet (0.5 mg) by mouth 3 (three) times a day as needed for anxiety for up to 14 days 30 tablet 12/18/2023 02/09/2024 Discontinued (Therapy completed) amoxicillin 500 mg oral capsule (11 sources) Penicillin-class Antibacterial Start: 11-09-2021 End: 05-02-2022 take 1 capsule by mouth three times daily Amoxicillin 500 mg capsule Discontinued 500 MG PO Three times daily November 09, 2021 12:00am May 02, 2022 8:16pm Budesonide-Formot jailyn (15 sources) Corticosteroid, beta2-Adrenergic Agonist Start: 12-10-2018 End: 11-25-2020 take 1 puff(s) by inhalation once daily Budesonide-Formot jailyn (Symbicort) 160-4.5 mcg/actuation HFA aerosol inhaler Discontinued [...] 2 puffs Inhalation Twice a day Not-Taking celecoxib 200 mg oral capsule (10 sources) Nonsteroidal Anti-inflammatory Drug Start: 07-11-2023 End: 07-26-2024 take 1 capsule by mouth once daily Celecoxib (Celebrex) 200 mg capsule Discontinued 200 MG PO Daily July 11, 2023 12:00am July 26, 2024 9:04am take 1 capsule by [facility] every twenty-four hours as needed CeleBREX 200 MG capsule Take 200 mg by mouth Daily as needed. 0 Active diclofenac sodium 50 mg delayed release oral tablet (20 sources) Nonsteroidal Anti-inflammatory Drug Start: 11-25-2020 End: 11-09-2021 take 1 tablet by mouth once daily Diclofenac Sodium 50 mg tablet,delayed release (DR/EC) Discontinued 50 MG PO Daily November 25, 2020 12:00am November 09, 2021 1:23pm Start: 04-20-2018 End: 12-10-2018 take 1 tablet by mouth three times daily Diclofenac Sodium 50 mg tablet,delayed release (DR/EC) Discontinued 50 MG PO Three times daily April 20, 2018 1:00am December 10, 2018 10:43am Diclofenac Activ e dicyclomine hydrochloride 20 mg oral tablet (11 sources) Anticholinergic Start: 11-25-2020 End: 11-09-2021 take 1 tablet by mouth three times daily Dicyclomine 20 mg tablet Discontinued 20 MG PO Three times daily November 25, 2020 12:00am November 09, 2021 1:23pm gabapentin 300 mg oral capsule (15 sources) Anti-epileptic Agent Start: 04-20-2018 End: 12-10-2018 take 1 capsule by mouth once daily Gabapentin 300 mg Capsule Discontinued 300 MG PO Daily April 20, 2018 1:00am December 10, 2018 10:43am hydroxychloroquine sulfate 200 mg oral tablet (5 sources) Antimalarial, Antirheumatic Agent End: 08-05-2024 take 1 tablet by mouth in the morning hydroxychloroquine (Plaquenil) 200 MG tablet Take 200 mg by mouth in the morning and 200 mg before bedtime. Rx'd by Dr. Tejada Pt is taking a 1 tablet in the morning and a 1/2 tablet in the evening. 08/05/2024 Discontinued omeprazole 40 mg delayed release oral capsule (15 sources) Proton Pump Inhibitor Start: 04-20-2018 End: 11-09-2021 take 1 capsule by mouth once daily Omeprazole 40 mg Capsule,Delayed Release(Dr/Ec) Discontinued 40 MG PO Daily April 20, 2018 1:00am November 09, 2021 1:23pm phentermine hydrochloride 37.5 mg oral tablet (20 sources) Sympathomimetic Amine Anorectic Start: 07-16-2023 End: 08-05-2024 take 1 tablet by mouth before mealtime phentermine (Adipex-P) 37.5 MG tablet Indications: BMI 32.0-32.9,adult Take 1 tablet (37.5 mg) by mouth in the morning. Take before meals. 30 tablet 06/10/2024 08/05/2024 Discontinued Start: 07-11-2023 End: 07-26-2024 take 1 capsule by mouth once daily 30 minutes after breakfast Phentermine 37.5 mg capsule Discontinued 37.5 MG PO Daily July 11, 2023 12:00am July 26, 2024 9:04am must administer 30 minutes before or 1-2 hours after breakfast Start: 03-31-2023 End: 06-07-2023 take 1 tablet by mouth before mealtime phentermine (Adipex-P) 37.5 MG tablet Indications: Abnormal weight gain , BMI 29.0-29.9,adult Take 1 tablet (37.5 mg) by mouth in the morning. Take before meals. 30 tablet 0 05/08/2023 06/07/2023 Active take 1 capsule by mo [facility] every twenty-four hours Adipex-P 37.5 MG 1 tablet Orally Once a day Not-Taking promethazine hydrochloride 25 mg oral tablet (11 sources) Phenothiazine Start: 11-24-2019 End: 11-25-2020 take 1 tablet by mouth every six hours as needed for nausea Promethazine 25 mg Tablet Discontinued 25 MG PO Q6H as needed for Nausea November 24, 2019 12:00am November 25, 2020 1:53pm sucralfate 1000 mg oral tablet (20 sources) Aluminum Complex Start: 12-29-2020 End: 11-09-2021 take 1 tablet by mouth three times daily Sucralfate 1 gram tablet Discontinued 1 GM PO Three times daily December 29, 2020 12:00am November 09, 2021 1:23pm Start: 11-03-2015 take 1 tablet by vishal every eight hours Sucralfate 1 GM 1 [...] Problem Date Documented Date Episodic/Chronic Abdominal pain (20 sources) Nonspecific abdominal pain; Translations: [Unspecified abdominal pain] 11-25-2020 Episodic Anxiety disorders (5 sources) Generalized anxiety disorder; Translations: [Generalized anxiety disorder] 02-09-2024 Chronic Asthma (17 sources) Exercise-induced asthma; Translations: [Exercise induced bronchospasm] Onset: 4 04-27-2023 Chronic Cardiac dysrhythmias (10 sources) Palpitations; Translations: [Palpitations] 05-02-2022 Episodic Complications of surgical procedures or medical care (6 sources) Drug therapy finding; Translations: [Unspecified adverse effect of drug or medicament, initial encounter] 02-16-2024 Episodic Disorders of teeth and jaw (11 sources) Dental abscess; Translations: [Periapical abscess without sinus] 11-09-2021 Episodic Esophageal disorders (20 sources) Gastroesophageal reflux disease; Translations: [Gastro-esophageal reflux disease without esophagitis] Onset: 1 Resolved: 2 Chronic Headache; including migraine (11 sources) Headache; Translations: [Headache] 11-24-2019 Episodic Menopausal disorders (20 sources) Drug therapy status; Translations: [Hormone replacement therapy] 04-27-2023 Episodic Miscellaneous mental health disorders (1 source) Aerophagy; 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 Mood disorders (19 sources) Major depression in remission; Translations: [Major depressive disorder, single episode, in full remission] 04-27-2023 Chronic Mycoses (2 sources) Mycosis; Translations: [Candidiasis, unspecified] 05-08-2023 Episodic Osteoarthritis (20 sources) Localized, primary osteoarthritis of the wrist; Translations: [Primary osteoarthritis, left wrist] Onset: 3 Chronic Other acquired deformities (2 sources) Deformity of metatarsal; Translations: [Unspecified acquired deformity of right lower leg] 08-05-2024 Episodic Other connective tissue disease (5 sources) Trochanteric bursitis, right hip; Translations: [TROCHANTERIC BURSITIS RIGHT HIP] Onset: 2 Episodic Other connective tissue disease (2 sources) Pain of toe of right foot; Translations: [Pain in right toe(s)] 08-05-2024 Episodic Other gastrointestinal disorders (17 sources) Irritable bowel syndrome; Translations: [Mixed irritable [...] (6 sources) Cough; Translations: [Cough] Episodic Other lower respiratory disease (2 sources) Cough; Translations: [Acute cough] 02-16-2024 Episodic Other lower respiratory disease (2 sources) Lower respiratory tract infection; Translations: [Unspecified acute lower respiratory infection] 02-16-2024 Episodic Other lower respiratory disease (2 sources) Dyspnea; Translations: [Shortness of breath] 02-16-2024 Episodic Other nervous system disorders (1 source) Other chronic pain; Translations: [OTHER CHRONIC PAIN] Onset: 3 Chronic Other nervous system disorders (2 sources) Mortons neuroma of right foot; Translations: [Lesion of plantar nerve, right lower limb] 08-05-2024 Chronic Other non-traumatic joint disorders (5 sources) Pain in left hip; Translations: [PAIN IN LEFT HIP] Onset: 3 Episodic Other nutritional; endocrine; and metabolic disorders (5 sources) Body mass index 30+ - obesity; Translations: [Body mass index (BMI) 32.0-32.9, adult] 05-13-2024 Chronic Other nutritional; endocrine; and metabolic disorders (18 sources) Obese class I; Translations: [Obesity, unspecified] Onset: 3 04-27-2023 Chronic Other nutritional; endocrine; and metabolic disorders (10 sources) Overweight in adulthood with body mass index of 25 or more but less than 30; Translations: [Body mass index (BMI) 28.0-28.9, adult] 05-08-2023 Episodic Other nutritional; endocrine; and metabolic disorders (6 sources) Abnormal weight gain; Translations: [Abnormal weight gain] 05-08-2023 Episodic Other nutritional; endocrine; and metabolic disorders (2 sources) Body mass index (BMI) 27.0-27.9, adult; Translations: [Body Mass Index 27.0-27.9, adult] 07-31-2023 Episodic Other screening for suspected conditions (not mental disorders or infectious disease) (2 sources) Patient encounter status; Translations: [Encounter for screening mammogram for malignant neoplasm of breast] 02-09-2024 Episodic Other skin disorders (2 sources) Lichen sclerosus et atrophicus; Translations: [Circumscribed scleroderma] 02-09-2024 Chronic Other skin disorders (2 sources) Epidermoid cyst of hand; Translations: [Sebaceous cyst] 02-16-2024 Episodic Other upper respiratory disease (6 sources) Hoarse; Translations: [Dysphonia] Episodic Residual codes; unclassified (4 sources) Sleep apnea; Translations: [Sleep apnea, unspecified] 11-18-2023 Chronic Residual codes; unclassified (9 sources) Obstructive sleep apnea syndrome; Translations: [Obstructive sleep apnea (adult) (pediatric)] 07-31-2023 Chronic Residual codes; unclassified (2 sources) Idiopathic sleep related nonobstructive alveolar hypoventilation; Translations: [Idiopathic sleep related non-obstructive alveolar hypoventilation] 07-31-2023 Chronic Residual codes; unclassified (3 sources) Obstructive sleep apnea (adult) (pediatric); Translations: [Obstructive sleep apnea (adult)(pediatric)] Onset: 4 07-31-2023 Chronic Residual codes; unclassified (18 sources) Postmenopausal state; Translations: [Asymptomatic menopausal state] 04-27-2023 Episodic Residual codes; unclassified (4 sources) FH: Rheumatoid arthritis; Translations: [Family history of arthritis] 02-16-2024 Episodic Spondylosis; intervertebral disc disorders; other back [...] BURSITIS LEFT HIP] Onset: 2 Episodic Other female genital disorders (2 sources) Pruritus of vagina; Translations: [Other specified noninflammatory disorders of vagina] 11-18-2023 Episodic Other gastrointestinal disorders (1 source) Dysphagia, pharyngoesophageal phase; Translations: [Pharyngoesophageal dysphagia R13.14] Onset: 1 Resolved: 1 Episodic Other gastrointestinal disorders (1 source) Abdominal distension (gaseous) Onset: 2 Resolved: 2 Episodic Results Test Name Value Interpretation Reference Range Facility Alanine aminotransferase [En zymatic activity/volume] in Serum or PlasmaOrdered By: Johnny Tejada on 06-28-2024 ALT [Catalytic activity/Vol] Alanine aminotransferase [Enzymatic activity/volume] in Serum or Plasma 7-52 [facility] Albumin [Mass/volume] in Ser um or Plasma by Bromocresol green (BCG) dye binding methoOrdered By: Johnny Tejada on 06-28-2024 Albumin BCG dye [Mass/Vol] Albumin [Mass/volume] in Serum or Plasma by Bromocresol green (BCG) dye binding metho 3.5-5.7 [facility] Alkaline phosphatase [Enzyma tic activity/volume] in Serum or PlasmaOrdered By: Johnny Tejada on 06-28-2024 ALP [Catalytic activity/Vol] Alkaline phosphatase [Enzymatic activity/volume] in Serum or Plasma 34-104 [facility] Aspartate aminotransferase [ Enzymatic activity/volume] in Serum or PlasmaOrdered By: Johnny Tejada on 06-28-2024 AST [Catalytic activity/Vol] Aspartate aminotransferase [Enzymatic activity/volume] in Serum or Plasma 13-39 [facility] Basophils Auto (Bld) [#/Vol] Ordered By: Johnny Tejada on 06-28-2024 Basophils (Bld) [#/Vol] Automated basophil count 0.0-0.2 [facility] Basophils/100 WBC Auto (Bld) Ordered By: Johnny Tejada on 06-28-2024 Basophils/100 WBC (Bld) Automated basophil % . [facility] Bilirubin.total [Mass/volume ] in Serum or PlasmaOrdered By: Johnny Tejada on 06-28-2024 Bilirubin [Mass/Vol] Bilirubin.total [Mass/volume] in Serum or Plasma 0.3-1.0 [facility] Calcium [Mass/volume] in Ser um or PlasmaOrdered By: Johnny Tejada on 06-28-2024 Calcium [Mass/Vol] Calcium [Mass/volume ] in Serum or Plasma 8.6-10.3 [facility] Carbon dioxide, total [Moles /volume] in Serum or PlasmaOrdered By: Johnny Tejada on 06-28-2024 CO2 [Moles/Vol] Carbon dioxide, tota l [Moles/volume] in Serum or Plasma High 21.0-31.0 [facility] Chloride [Moles/volume] in S simba or PlasmaOrdered By: Johnny Tejada on 06-28-2024 Chloride [Moles/Vol] Chloride [Moles/vol ume] in Serum or Plasma 98-107 [facility] Complete Blood Count Auto Di ffon 06-28-2024 Basophils (Bld) [#/Vol] 0.0 10*3/uL Normal 0.0-0.2 [facility] Comment on above: Result Comment: PERF ORMED BY: [place] [address] PATHOLOGIST BREAKFAST BAR ATTENDANT CALEB BARNETT M.D. Performed By: #### C MP, CBC #### [address] Basophils/100 WBC (Bld) 0.7 % Normal . [facility] Comment on above: Performed By: #### C MP, CBC #### [facility] [address] [place] [address] [place] Eosinophils (Bld) [#/Vol] 0.3 10*3/uL Normal 0.0-0.45 [facility] Comment on above: Performed By: #### C MP, CBC #### [place] [address] [place] Eosinophils/100 WBC (Bld) 5.3 % Normal . [facility] Comment on above: Performed By: #### C MP, CBC #### [address] Erythrocyte distribution width (RBC) [Ratio] 12.7 % Normal 11.9-15.3 [facility] Comment on above: Performed By: #### C MP, CBC #### [address] Hematocrit (Bld) [Volume fraction] 41.8 % Normal 34.0-46.4 [facility] Comment on above: Performed By: #### C MP, CBC #### [address] Hemoglobin (Bld) [Mass/Vol] 14.5 g/dL Normal 11.8-15.4 [facility] Comment on above: Performed By: #### C MP, CBC #### [address] Lymphocytes (Bld) [#/Vol] 1.3 10*3/uL Normal 1.00-4.8 [facility] Comment on above: Performed By: #### C MP, CBC #### [address] Lymphocytes/100 WBC (Bld) 26.8 % Normal . [facility] Comment on above: Performed By: #### C MP, CBC #### [address] MCH (RBC) [Entitic mass] 30.2 pg Normal 24.7-34.3 [facility] Comment on above: Performed By: #### C MP, CBC #### [address] MCV (RBC) [Entitic vol] 86.8 fL Normal 80-100 [facility] Comment on above: Performed By: #### C MP, CBC #### [address] Mean Corpuscular HGB Conc 34.7 g/dL Normal 32.0-35.0 [facility] Comment on above: Performed By: #### C MP, CBC #### [facility] [address] [place] [address] [place] Monocytes (Bld) [#/Vol] 0.5 10*3/uL Normal 0.0-0.8 [facility] Comment on above: Performed By: #### C MP, CBC #### [place] [address] [place] Monocytes/100 WBC (Bld) 9.5 % Normal . [facility] Comment on above: Performed By: #### C MP, CBC #### [facility] [address] [place] [address] [place] Neutrophils (Bld) [#/Vol] 2.8 10*3/uL Normal 1.8-7.7 [facility] Comment on above: Performed By: #### C MP, CBC #### [address] Neutrophils/100 WBC (Bld) 57.7 % Normal . [facility] Comment on above: Performed By: #### C MP, CBC #### [place] [address] [place] NRBC% 0.1 /100{WBC} Normal 0-0.5 [facility] Comment on above: Performed By: #### C MP, CBC #### [place] [address] [place] Platelet mean volume (Bld) [Entitic vol] 8.9 fL Normal 6.3-10.7 [facility] Comment on above: Performed By: #### C MP, CBC #### [facility] [address] [place] [address] [place] Platelets (Bld) [#/Vol] 251 10*3/uL Normal 150-450 [facility] Comment on above: Performed By: #### C MP, CBC #### [place] [address] [place] RBC (Bld) [#/Vol] 4.82 10*6/uL Normal 3.60-5.00 [facility] Comment on above: Performed By: #### C MP, CBC #### [address] WBC (Bld) [#/Vol] 4.9 10*3/uL Normal 3.8-11.6 [facility] Comment on above: Performed By: #### C MP, CBC #### [address] Comprehensive Metabolic Pane howie 06-28-2024 Albumin [Mass/Vol] 4.4 g/dL Normal 3.5-5.7 [facility] Comment on above: Performed By: #### C MP, CBC #### [address] Albumin/Globulin [Mass ratio] 1.8 {ratio} Normal [facility] Comment on above: Performed By: #### C MP, CBC #### [address] ALP [Catalytic activity/Vol] 54 U/L Normal 34-104 [facility] Comment on above: Result Comment: PERF ORMED BY: [place] [address] PATHOLOGIST BREAKFAST BAR ATTENDANT CALEB BARNETT M.D. Performed By: #### C MP, CBC #### [address] ALT [Catalytic activity/Vol] 17 U/L Normal 7-52 [facility] Comment on above: Performed By: #### C MP, CBC #### [address] Anion gap [Moles/Vol] 11.0 mmol/L Normal 6.0-15.0 [facility] Comment on above: Performed By: #### C MP, CBC #### [address] AST [Catalytic activity/Vol] 18 U/L Normal 13-39 [facility] Comment on above: Performed By: #### C MP, CBC #### [address] Bilirubin [Mass/Vol] 0.5 mg/dL Normal 0.3-1.0 [facility] Comment on above: Performed By: #### C MP, CBC #### [address] Calcium [Mass/Vol] 10.0 mg/dL Normal 8.6-10.3 [facility] Comment on above: Performed By: #### C MP, CBC #### [address] Chloride [Moles/Vol] 99 mmol/L Normal 98-107 [facility] Comment on above: Performed By: #### C MP, CBC #### [address] CO2 [Moles/Vol] 31.6 mmol/L High 21.0-31.0 [facility] Comment on above: Performed By: #### C MP, CBC #### [address] Creatinine [Mass/Vol] 0.76 mg/dL Normal 0.60-1.20 [facility] Comment on above: Performed By: #### C MP, CBC #### [place] [address] [place] GFR/1.73 sq M.predicted MDRD (S/P/Bld) [Vol rate/Area] mL/min/{1.73_m2} Normal [facility] Comment on above: Performed By: #### C MP, CBC #### [place] [address] [place] Globulin (S) [Mass/Vol] 2.4 g/dL Normal [facility] Comment on above: Performed By: #### C MP, CBC #### [address] Glucose [Mass/Vol] 86 mg/dL Normal 70-100 [facility] Comment on above: Result Comment: [facility] Glucose Reference Range is dependent on time and content of last meal. Glucose of more than 200 mg/dL in a nonstressed, ambulatory subject supports the diagnosis of Diabetes Mellitus. ADA recommended reference range Performed By: #### C MP, CBC #### [facility] [address] Potassium [Moles/Vol] 4.6 mmol/L Normal 3.5-5.1 [facility] Comment on above: Performed By: #### C MP, CBC #### [facility] [address] [place] [address] [place] Protein [Mass/Vol] 6.8 g/dL Normal 6.4-8.9 [facility] Comment on above: Performed By: #### C MP, CBC #### [facility] [address] Sodium [Moles/Vol] 137 mmol/L Normal 136-145 [facility] Comment on above: Performed By: #### C MP, CBC #### [facility] [address] [place] [address] [place] Urea nitrogen [Mass/Vol] 15 mg/dL Normal 7-25 [facility] Comment on above: Performed By: #### C MP, CBC #### [facility] [address] [place] [address] [place] Creatinine [Mass/volume] in Serum or PlasmaOrdered By: Johnny Tejada on 06-28-2024 Creatinine [Mass/Vol] Creatinine [Mass/v olume] in Serum or Plasma 0.60-1.20 [facility] Eosinophils Auto (Bld) [#/Vo l]Ordered By: Johnny Tejada on 06-28-2024 Eosinophils (Bld) [#/Vol] Automated eosinophil count 0.0-0.45 [facility] Eosinophils/100 WBC Auto (Bl d)Ordered By: Johnny Tejada on 06-28-2024 Eosinophils/100 WBC (Bld) Automated eosinophil % . [facility] Erythrocyte distribution wid th Auto (RBC) [Ratio]Ordered By: Johnny Tejada on 06-28-2024 Erythrocyte distribution width (RBC) [Ratio] Erythrocyte distribution width [Ratio] by Automated count 11.9-15.3 [facility] Globulin Calc (S) [Mass/Vol] Ordered By: Johnny Tejada on 06-28-2024 Globulin (S) [Mass/Vol] Serum globulin measurement by calculation (mass/volume) [facility] Glucose [Mass/volume] in Ser um or PlasmaOrdered By: Johnny Tejada on 06-28-2024 Glucose [Mass/Vol] Glucose [Mass/volume ] in Serum or Plasma 70-100 [facility] Comment on above: ADA recommended refe rence rangeRandom Glucose Reference Range is dependent on time and content of last meal. Glucose of more than 200 mg/dL in a nonstressed, ambulatory subject supports the diagnosis of Diabetes Mellitus. Hematocrit Auto (Bld) [Volum e fraction]Ordered By: Johnny Tejada on 06-28-2024 Hematocrit (Bld) [Volume fraction] Hematocrit [Volume Fraction] of Blood by Automated count 34.0-46.4 [facility] Hemoglobin [Mass/volume] in BloodOrdered By: Johnny Tejada on 06-28-2024 Hemoglobin (Bld) [Mass/Vol] Hemoglobin [Mass/volume] in Blood 11.8-15.4 [facility] Leukocytes [#/volume] correc nikhil for nucleated erythrocytes in Blood by Automated counOrdered By: Johnny Tejada on 06-28-2024 WBC corrected for nucl RBC Auto (Bld) [#/Vol] Leukocytes [#/volume] corrected for nucleated erythrocytes in Blood by Automated coun 3.8-11.6 [facility] Lymphocytes Auto (Bld) [#/Vo l]Ordered By: Johnny Tejada on 06-28-2024 Lymphocytes (Bld) [#/Vol] Lymphocytes [#/volume] in Blood by Automated count 1.00-4.8 [facility] Lymphocytes/100 WBC Auto (Bl d)Ordered By: Johnny Tejada on 06-28-2024 Lymphocytes/100 WBC (Bld) Lymphocytes/100 leukocytes in Blood by Automated count . [facility] MCH Auto (RBC) [Entitic mass ]Ordered By: Johnny Tejada on 06-28-2024 MCH (RBC) [Entitic mass] MCH [Entitic mass] by Automated count 24.7-34.3 [facility] MCHC Auto (RBC) [Mass/Vol]Or dered By: Johnny Tejada on 06-28-2024 MCHC (RBC) [Mass/Vol] MCHC [Mass/volume] by Automated count 32.0-35.0 [facility] MCV Auto (RBC) [Entitic vol] Ordered By: Johnny Tejada on 06-28-2024 MCV (RBC) [Entitic vol] MCV [Entitic volume] by Automated count 80-100 [facility] Monocytes Auto (Bld) [#/Vol] Ordered By: Johnny Tejada on 06-28-2024 Monocytes (Bld) [#/Vol] Automated blood monocyte count 0.0-0.8 [facility] Monocytes/100 WBC Auto (Bld) Ordered By: Johnny Tejada on 06-28-2024 Monocytes/100 WBC (Bld) Automated monocyte % . [facility] Neutrophils Auto (Bld) [#/Vo l]Ordered By: Johnny Tejada on 06-28-2024 Neutrophils (Bld) [#/Vol] Neutrophils [#/volume] in Blood by Automated count 1.8-7.7 [facility] Neutrophils/100 WBC Auto (Bl d)Ordered By: Johnny Tejada on 06-28-2024 Neutrophils/100 WBC (Bld) Automated neutrophil % . [facility] No Panel InformationOrdered By: Johnny Tejada on 06-28-2024 Estimated GFR (CKD-EPI) > 60.0 mL/Min [facility] Creatinine Clearance (Chem N/A [facility] Nucleated erythrocytes [Pres ence] in Blood by Automated countOrdered By: Johnny Tejada on 06-28-2024 Nucleated RBC Auto Ql (Bld) Nucleated erythrocytes [Presence] in Blood by Automated count 0-0.5 [facility] Platelet mean volume Auto (B ld) [Entitic vol]Ordered By: Johnny Tejada on 06-28-2024 Platelet mean volume (Bld) [Entitic vol] Platelet mean volume [Entitic volume] in Blood by Automated count 6.3-10.7 [facility] Platelets Auto (Bld) [#/Vol] Ordered By: Johnny Tejada on 06-28-2024 Platelets (Bld) [#/Vol] Platelets [#/volume] in Blood by Automated count 150-450 [facility] Potassium [Moles/volume] in Serum or PlasmaOrdered By: Johnny Tejada on 06-28-2024 Potassium [Moles/Vol] Potassium [Moles/v olume] in Serum or Plasma 3.5-5.1 [facility] Protein [Mass/volume] in Ser um or PlasmaOrdered By: Johnny Tejada on 06-28-2024 Protein [Mass/Vol] Protein [Mass/volume ] in Serum or Plasma 6.4-8.9 [facility] RBC Auto (Bld) [#/Vol]Ordere d By: Johnny Tejada on 06-28-2024 RBC (Bld) [#/Vol] Erythrocytes [#/volu me] in Blood by Automated count 3.60-5.00 [facility] Serum or plasma albumin/glob ulin mass ratioOrdered By: Johnny Tejada on 06-28-2024 Albumin/Globulin [Mass ratio] Serum or plasma albumin/globulin mass ratio [facility] Serum or plasma anion gap de terminationOrdered By: Johnny Tejada on 06-28-2024 Anion gap [Moles/Vol] Serum or plasma an ion gap determination 6.0-15.0 [facility] Sodium [Moles/volume] in Ser um or PlasmaOrdered By: Johnny Tejada on 06-28-2024 Sodium [Moles/Vol] Sodium [Moles/volume ] in Serum or Plasma 136-145 [facility] Urea nitrogen [Mass/volume] in Serum or PlasmaOrdered By: Johnny Tejada on 06-28-2024 Urea nitrogen [Mass/Vol] Urea nitrogen [Mass/volume] in Serum or Plasma 7-25 [facility] WBC Auto (Bld) [#/Vol]Ordere d By: Johnny Tejada on 06-28-2024 WBC (Bld) [#/Vol] Leukocytes [#/volume ] in Blood by Automated count 3.8-11.6 [facility] XR CHEST 2 VIEWSon 4 XR CHEST 2 VIEWS EXAM: XR Chest, Two Views. REASON FOR EXAM: Cough COMPARISON: None FINDINGS: Two images of the chest submitted. The cardiac and mediastinal silhouettes are normal in size. Trachea is nondisplaced. Pulmonary vascularity is normal. There is no pleural effusion or focal lung opacity. Coarsened perihilar markings are present bilaterally with prominent bronchovascular markings. Cholecystectomy clips noted. IMPRESSION: Findings consistent with a central viral or atypical process. *This report is generated using voice recognition reporting ([employer]). On occasion [employer] erroneously drops words from the report or replaces the spoken word with similar sounding words. Please call with any questions/concerns regarding this report.* Dictated and transcribed 02/16/24/dpd This report has been electronically signed and approved by the interpreting radiologist. Normal Not Available BI MAMMOGRAM SCREENING TOMOS YNTHESIS BILATERALon 02-10-2024 BI MAMMOGRAM SCREENING TOMOSYNTHESIS BILATERAL This is a summary report. The complete report is available in the patient's medical record. If you cannot access the medical record, please contact the sending organization for a detailed fax or copy. Examination: BI MAMMOGRAM SCREENING TOMOSYNTHESIS BILATERAL Clinical History: screening Technique: Screening digital mammography study of both breasts was performed with 2-D and 3-D tomosynthesis imaging. Study was compared to the prior exam dated 12/23/2022. Findings: There is no evidence of interval dominant spiculated mass, grouped microcalcifications, or skin thickening which would be suggestive of malignancy. A few benign-appearing calcifications are seen bilaterally. Axillary lymph nodes are noted on the left. IMPRESSION: Impression: No specific evidence of malignancy seen in either breast. BIRADS 2 - Benign DENSITY: There are scattered areas of fibroglandular density FOLLOW-UP: Routine Screening Mamm ELECTRONICALLY SIGNED BY: Jameel Gutierrez M.D. Normal Not Available Comment on above: Order Comment: Us an d spot compression prn Activated partial thrombopla stin time (aPTT) in platelet poor plasma by coagulation aOrdered By: Oswaldo Deleon on 05-02-2022 aPTT Coag (PPP) [Time] 30.0 s 25.1-36.5 [facility] Basophils Auto (Bld) [#/Vol] Ordered By: Oswaldo Deleon on 05-02-2022 Basophils (Bld) [#/Vol] 0.0 10*3/uL 0.0-0.2 [facility] Basophils/100 WBC Auto (Bld) Ordered By: Oswaldo Deleon on 05-02-2022 Basophils/100 WBC (Bld) 0.7 % . [facility] Body fluid albumin measureme nt (mass/volume)Ordered By: Oswaldo Deleon on 05-02-2022 Albumin (Body fld) [Mass/Vol] 4.0 g/dL 3.2-5.5 [facility] Creatine kinase [Enzymatic a ctivity/volume] in Serum or PlasmaOrdered By: Oswaldo Deleon on 05-02-2022 CK [Catalytic activity/Vol] 50 U/L 22-269 [facility] Creatinine and Glomerular fi ltration rate.predicted panel (S/P/Bld)Ordered By: Oswaldo Deleon on 05-02-2022 Creatinine [Mass/Vol] 0.79 mg/dL 0.44-1.03 [facility] Eosinophils Auto (Bld) [#/Vo l]Ordered By: Oswaldo Deleon on 05-02-2022 Eosinophils (Bld) [#/Vol] 0.4 10*3/uL 0.0-0.45 [facility] Eosinophils/100 WBC Auto (Bl d)Ordered By: sOwaldo Deleon on 05-02-2022 Eosinophils/100 WBC (Bld) 4.9 % . [facility] Erythrocyte distribution wid th Auto (RBC) [Ratio]Ordered By: Oswaldo Deleon on 05-02-2022 Erythrocyte distribution width (RBC) [Ratio] 13.0 % 11.9-15.3 [facility] Estimated glomerular filtrat ion rate (GFR) non- AmericanOrdered By: Oswaldo Deleon on 05-02-2022 GFR/1.73 sq M.predicted among non-blacks MDRD (S/P/Bld) [Vol rate/Area] > 60 mL/Min [facility] Globulin Calc (S) [Mass/Vol] Ordered By: Oswaldo Deleon on 05-02-2022 Globulin (S) [Mass/Vol] 2.9 g/dL [facility] Hematocrit Auto (Bld) [Volum e fraction]Ordered By: Oswaldo Deleon on 05-02-2022 Hematocrit (Bld) [Volume fraction] 43.7 % 34.0-46.4 [facility] Hemoglobin [Mass/volume] in BloodOrdered By: Oswaldo Deleon on 05-02-2022 Hemoglobin (Bld) [Mass/Vol] 14.7 g/dL 11.8-15.4 [facility] Laboratory - Chemistry and C hemistry - challengeOrdered By: Oswaldo Deleon on 05-02-2022 Magnesium [Mass/Vol] 2.0 mg/dL 1.6-2.6 [facility] - CoagulationOrde red By: Oswaldo Deleon on 05-02-2022 PT Coag (PPP) [Time] 11.6 s 9.0-12.9 [facility] Leukocytes [#/volume] correc nikhil for nucleated erythrocytes in Blood by Automated counOrdered By: Oswaldo Deleon on 05-02-2022 WBC corrected for nucl RBC Auto (Bld) [#/Vol] 7.4 10*3/uL 3.8-11.6 [facility] Lymphocytes Auto (Bld) [#/Vo l]Ordered By: Oswaldo Deleon on 05-02-2022 Lymphocytes (Bld) [#/Vol] 1.6 10*3/uL 1.00-4.8 [facility] Lymphocytes/100 WBC Auto (Bl d)Ordered By: Oswaldo Deleon on 05-02-2022 Lymphocytes/100 WBC (Bld) 22.0 % . [facility] MCH Auto (RBC) [Entitic mass ]Ordered By: Oswaldo Deleon on 05-02-2022 MCH (RBC) [Entitic mass] 30.0 pg 24.7-34.3 [facility] MCHC Auto (RBC) [Mass/Vol]Or dered By: Oswaldo Deleon on 05-02-2022 MCHC (RBC) [Mass/Vol] 33.7 g/dL 32.0-35.0 [facility] MCV Auto (RBC) [Entitic vol] Ordered By: Oswaldo Deleon on 05-02-2022 MCV (RBC) [Entitic vol] 88.9 fL 80-100 [facility] Monocyte distribution width [Entitic volume] in Blood by AutomatedOrdered By: Oswaldo Deleon on 05-02-2022 Monocyte distribution width Auto (Bld) [Entitic vol] 18.10 % 0.00-20.00 [facility] Monocytes Auto (Bld) [#/Vol] Ordered By: Oswaldo Deleon on 05-02-2022 Monocytes (Bld) [#/Vol] 0.8 10*3/uL 0.0-0.8 [facility] Monocytes/100 WBC Auto (Bld) Ordered By: Oswaldo Deleon on 05-02-2022 Monocytes/100 WBC (Bld) 10.2 % . [facility] Neutrophils Auto (Bld) [#/Vo l]Ordered By: Oswaldo Deleon on 05-02-2022 Neutrophils (Bld) [#/Vol] 4.6 10*3/uL 1.8-7.7 [facility] Neutrophils/100 WBC Auto (Bl d)Ordered By: Oswaldo Deleon on 05-02-2022 Neutrophils/100 WBC (Bld) 62.2 % . [facility] No Panel InformationOrdered By: Oswaldo Deleon on 05-02-2022 D-Dimer Quantitative (PE/DVT) < 200 ng/mL 0-243 [facility] Comment on above: The reference range [...] conditions. Estimated GFR () > 60 mL/Min [facility] Comment on above: GFR estimated refere nce range: According to KDOQI guidelines, <60 ml/min/1.73m2 is sufficient to diagnose a patient with chronic kidney disease. Pharmacy Creatinine Clearance (Chem 67.96 [facility] Nucleated erythrocytes [Pres ence] in Blood by Automated countOrdered By: Oswaldo Deleon on 05-02-2022 Nucleated RBC Auto Ql (Bld) 0.1 /100{WBC} 0-0.5 [facility] Platelet mean volume Auto (B ld) [Entitic vol]Ordered By: Oswaldo Deleon on 05-02-2022 Platelet mean volume (Bld) [Entitic vol] 8.7 fL 6.3-10.7 [facility] Platelet poor plasma interna tional normalized ratio (INR) by coagulation assay (relatOrdered By: Oswaldo Deleon on 05-02-2022 INR Coag (PPP) [Relative time] 1.0 {INR} [facility] Comment on above: INR Therapeutic Rang [...] 05-02-2022 Platelets (Bld) [#/Vol] 271 10*3/uL 150-450 [facility] Protein [Mass/volume] in Ser um or PlasmaOrdered By: Oswaldo Deleon on 05-02-2022 Protein [Mass/Vol] 6.9 g/dL 6.1-7.9 [facility] RBC Auto (Bld) [#/Vol]Ordere d By: Oswaldo Deleon on 05-02-2022 RBC (Bld) [#/Vol] 4.92 10*6/uL 3.60-5.00 [facility] Serum or plasma alanine reyna otransferase measurement without P-5'-P (enzymatic activiOrdered By: Oswaldo Deleon on 05-02-2022 ALT No additional P-5'-P [Catalytic activity/Vol] 21 U/L 10-60 [facility] Serum or plasma albumin/glob ulin mass ratioOrdered By: Oswaldo Deleon on 05-02-2022 Albumin/Globulin [Mass ratio] 1.4 {ratio} [facility] Serum or plasma alkaline raphael sphatase measurement (enzymatic activity/volume)Ordered By: Oswaldo Deleon on 05-02-2022 ALP [Catalytic activity/Vol] 56 U/L 32-92 [facility] Serum or plasma anion gap de terminationOrdered By: Oswaldo Deleon on 05-02-2022 Anion gap [Moles/Vol] 11.4 mmol/L 6.0-15.0 [facility] Serum or plasma aspartate am inotransferase measurement (enzymatic activity/volume)Ordered By: Oswaldo Deleon on 05-02-2022 AST [Catalytic activity/Vol] 20 U/L 10-42 [facility] Serum or plasma calcium shellie urement (mass/volume)Ordered By: Oswaldo Deleon on 05-02-2022 Calcium [Mass/Vol] 9.4 mg/dL 8.2-10.2 [facility] Serum or plasma chloride isidro surement (moles/volume)Ordered By: Oswaldo Deleon on 05-02-2022 Chloride [Moles/Vol] 100 mmol/L 95-114 [facility] Serum or plasma creatine kin ase MB (CKMB)/total creatine kinase (CK) ratio by calculaOrdered By: Oswaldo Deleon on 05-02-2022 CK.MB Calc [Catalytic fraction] 1.8 % 0.00-2.50 [facility] Serum or plasma creatine kin ase MB measurement (mass/volume)Ordered By: Oswaldo Deleon on 05-02-2022 CK.MB [Mass/Vol] 0.9 ng/mL 0.6-6.3 [facility] Serum or plasma glucose shellie urement (mass/volume)Ordered By: Oswaldo Deleon on 05-02-2022 Glucose [Mass/Vol] 87 mg/dL 70-100 [facility] Comment on above: ADA recommended refe rence rangeRandom Glucose Reference Range is dependent on time and content of last meal. Glucose of more than 200 mg/dL in a nonstressed, ambulatory subject supports the diagnosis of Diabetes Mellitus. Serum or plasma potassium me asurement (moles/volume)Ordered By: Oswaldo Deleon on 05-02-2022 Potassium [Moles/Vol] 3.9 mmol/L 3.5-5.1 [facility] Serum or plasma sodium measu rement (moles/volume)Ordered By: Oswaldo Deleon on 05-02-2022 Sodium [Moles/Vol] 135 mmol/L 136-146 [facility] Serum or plasma total biliru bin measurement (mass/volume)Ordered By: Oswaldo Deleon on 05-02-2022 Bilirubin [Mass/Vol] 0.5 mg/dL 0.3-1.2 [facility] Serum or plasma total carbon dioxide measurement (moles/volume)Ordered By: Oswaldo Deleon on 05-02-2022 CO2 [Moles/Vol] 27.5 mmol/L 22.0-30.0 [facility] Serum or plasma urea nitroge n measurement (mass/volume)Ordered By: Oswaldo Deleon on 05-02-2022 Urea nitrogen [Mass/Vol] 21 mg/dL 9-23 [facility] Troponin I.cardiac [Mass/vol ume] in Serum or Plasma by High sensitivity methodOrdered By: Oswaldo Deleon on 05-02-2022 Troponin I.cardiac High sensitivity method [Mass/Vol] 3 pg/mL 0-15 [facility] WBC Auto (Bld) [#/Vol]Ordere d By: Oswaldo Deleon on 05-02-2022 WBC (Bld) [#/Vol] 7.4 10*3/uL 3.8-11.6 [facility] XR TSPINE MIN 4 VIEWSon 01-22 [...] GENESIS BELLO Date: 2022-02-07 15:12 Normal [facility] SCREENING MAMMOGRAM W/NUPUR, BILATERAL*on 12-06-2021 [...] VERY IMPORTANT TO YOUR HEALTH. THE CURRENT [place] [employer] GUIDELINES RECOMMENDS ANNUAL MAMMOGRAPHY BEGINNING AT AGE 42 THIS FACILITY USES A REMINDER SYSTEM TO ENSURE ALL PATIENTS RECEIVE REMINDER NOTIFICATIONS AT THE APPROPRIATE TIME BASED ON THE RECOMMENDATIONS OF THIS EXAM. 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 Accredited by the ACR and FDA. Report reported and signed by Paulino Will on 12/06/2021 1003 Normal [facility] Basophils Auto (Bld) [#/Vol] Ordered By: Ken Ortiz on 10-04-2021 Basophils (Bld) [#/Vol] 0.0 10*3/uL 0.0-0.2 [facility] Basophils/100 WBC Auto (Bld) Ordered By: Ken Ortiz on 10-04-2021 Basophils/100 WBC (Bld) 0.7 % . [facility] Blood hemoglobin measurement (mass/volume)Ordered By: Ken Ortiz on 10-04-2021 Hemoglobin (Bld) [Mass/Vol] 14.6 g/dL 11.8-15.4 [facility] Blood leukocytes automated c ount (number/volume)Ordered By: Ken Ortiz on 10-04-2021 WBC (Bld) [#/Vol] 4.4 10*3/uL 4.5-11.0 [facility] Body fluid albumin measureme nt (mass/volume)Ordered By: Ken Ortiz on 10-04-2021 Albumin (Body fld) [Mass/Vol] 3.7 g/dL 3.2-5.5 [facility] C reactive protein [Mass/vol ume] in Serum or PlasmaOrdered By: Ken Ortiz on 10-04-2021 CRP [Mass/Vol] 0.6 mg/dL 0.0-1.0 [facility] Creatinine and Glomerular fi ltration rate.predicted panel (S/P/Bld)Ordered By: Ken Ortiz on 10-04-2021 Creatinine [Mass/Vol] 0.74 mg/dL 0.44-1.03 [facility] Elastase.pancreatic [Mass/ma ss] in StoolOrdered By: Ken Ortiz on 10-04-2021 Elastase.pancreatic (Stl) [Mass/Mass] >500 >200 [facility] Comment on above: Result Units: ug Luz st./g Severe Pancreatic Insufficiency: <100 Moderate Pancreatic Insufficiency: 100 - 200 Normal: >200 Performed at: - Lab[address] [id number] [place] Supervisor: Lamont Young MD, Phone: [phone] Eosinophils Auto (Bld) [#/Vo l]Ordered By: Ken Ortiz on 10-04-2021 Eosinophils (Bld) [#/Vol] 0.2 10*3/uL 0.0-0.45 [facility] Eosinophils/100 WBC Auto (Bl d)Ordered By: Ken Ortiz on 10-04-2021 Eosinophils/100 WBC (Bld) 5.2 % . [facility] Erythrocyte distribution wid th Auto (RBC) [Ratio]Ordered By: Ken Ortiz on 10-04-2021 Erythrocyte distribution width (RBC) [Ratio] 13.1 % 11.9-15.3 [facility] Erythrocyte sedimentation ra te by Photometric methodOrdered By: Ken Ortiz on 10-04-2021 ESR Photometric method (Bld) [Velocity] 5 mm/hr 0-29 [facility] Estimated glomerular filtrat ion rate (GFR) non- AmericanOrdered By: Ken Ortiz on 10-04-2021 GFR/1.73 sq M.predicted among non-blacks MDRD (S/P/Bld) [Vol rate/Area] > 60 mL/Min [facility] Globulin Calc (S) [Mass/Vol] Ordered By: Ken Ortiz on 10-04-2021 Globulin (S) [Mass/Vol] 2.5 g/dL [facility] Hematocrit Auto (Bld) [Volum e fraction]Ordered By: Ken Ortiz on 10-04-2021 Hematocrit (Bld) [Volume fraction] 43.7 % 34.0-46.4 [facility] IgA [Mass/volume] in Serum o r PlasmaOrdered By: Ken Ortiz on 10-04-2021 IgA [Mass/Vol] 168 mg/dL 87-352 [facility] Comment on above: Performed at: [address] [id number] [place] Supervisor: Kevin Sanders PhD, Phone: [phone] Laboratory - Hematology and Cell countsOrdered By: Ken Ortiz on 10-04-2021 Nucleated RBC/100 WBC (Bld) [Ratio] 0.0 % 0-0.5 [facility] Lymphocytes Auto (Bld) [#/Vo l]Ordered By: Ken Ortiz on 10-04-2021 Lymphocytes (Bld) [#/Vol] 1.5 10*3/uL 1.00-4.8 [facility] Lymphocytes/100 WBC Auto (Bl d)Ordered By: Ken Ortiz on 10-04-2021 Lymphocytes/100 WBC (Bld) 34.1 % . [facility] MCH Auto (RBC) [Entitic mass ]Ordered By: Ken Ortiz on 10-04-2021 MCH (RBC) [Entitic mass] 29.8 pg 24.7-34.3 [facility] MCHC Auto (RBC) [Mass/Vol]Or dered By: Ken Ortiz on 10-04-2021 MCHC (RBC) [Mass/Vol] 33.5 g/dL 32.0-35.0 [facility] MCV Auto (RBC) [Entitic vol] Ordered By: Ken Ortiz on 10-04-2021 MCV (RBC) [Entitic vol] 88.9 fL 80-100 [facility] Monocytes Auto (Bld) [#/Vol] Ordered By: Ken Ortiz on 10-04-2021 Monocytes (Bld) [#/Vol] 0.4 10*3/uL 0.0-0.8 [facility] Monocytes/100 WBC Auto (Bld) Ordered By: Ken Ortiz on 10-04-2021 Monocytes/100 WBC (Bld) 8.1 % . [facility] Neutrophils Auto (Bld) [#/Vo l]Ordered By: Ken Ortiz on 10-04-2021 Neutrophils (Bld) [#/Vol] 2.3 10*3/uL 1.8-7.7 [facility] Neutrophils/100 WBC Auto (Bl d)Ordered By: Ken Ortiz on 10-04-2021 Neutrophils/100 WBC (Bld) 51.9 % . [facility] No Panel InformationOrdered By: Ken Ortiz on 10-04-2021 Endomysial IgA Antibody Negative Negative [facility] Estimated GFR () > 60 mL/Min [facility] Comment on above: GFR estimated refere nce range: According to KDOQI guidelines, <60 ml/min/1.73m2 is sufficient to diagnose a patient with chronic kidney disease. Pharmacy Creatinine Clearance (Chem N/A [facility] Platelet mean volume Auto (B ld) [Entitic vol]Ordered By: Ken Ortiz on 10-04-2021 Platelet mean volume (Bld) [Entitic vol] 9.2 fL 6.3-10.7 [facility] Platelets Auto (Bld) [#/Vol] Ordered By: Ken Ortiz on 10-04-2021 Platelets (Bld) [#/Vol] 286 10*3/uL 150-450 [facility] Protein [Mass/volume] in Ser um or PlasmaOrdered By: Ken Ortiz on 10-04-2021 Protein [Mass/Vol] 6.2 g/dL 6.1-7.9 [facility] RBC Auto (Bld) [#/Vol]Ordere d By: Ken Ortiz on 10-04-2021 RBC (Bld) [#/Vol] 4.92 10*6/uL 3.60-5.00 [facility] Serum gliadin peptide IgA an tibody assay (units/volume)Ordered By: Ken Ortiz on 10-04-2021 Gliadin peptide IgA Qn (S) 4 units 0-19 [facility] Comment on above: Negative 0 - 19 Weak Positive 20 - 30 Moderate to Strong Positive >30 Serum gliadin peptide IgG an tibody assay (units/volume)Ordered By: Ken Ortiz on 10-04-2021 Gliadin peptide IgG Qn (S) 2 units 0-19 [facility] Comment on above: Negative 0 - 19 Weak Positive 20 - 30 Moderate to Strong Positive >30 Serum or plasma alanine reyna otransferase measurement without P-5'-P (enzymatic activiOrdered By: Ken Ortiz on 10-04-2021 ALT No additional P-5'-P [Catalytic activity/Vol] 16 U/L 10-60 [facility] Serum or plasma albumin/glob ulin mass ratioOrdered By: Ken Ortiz on 10-04-2021 Albumin/Globulin [Mass ratio] 1.5 {ratio} [facility] Serum or plasma alkaline raphael sphatase measurement (enzymatic activity/volume)Ordered By: Ken Ortiz on 10-04-2021 ALP [Catalytic activity/Vol] 55 U/L 32-92 [facility] Serum or plasma aspartate am inotransferase measurement (enzymatic activity/volume)Ordered By: Ken Ortiz on 10-04-2021 AST [Catalytic activity/Vol] 18 U/L 10-42 [facility] Serum or plasma calcium shellie urement (mass/volume)Ordered By: Ken Ortiz on 10-04-2021 Calcium [Mass/Vol] 9.7 mg/dL 8.2-10.2 [facility] Serum or plasma chloride isidro surement (moles/volume)Ordered By: Ken Ortiz on 10-04-2021 Chloride [Moles/Vol] 101 mmol/L 95-114 [facility] Serum or plasma glucose shellie urement (mass/volume)Ordered By: Ken Ortiz on 10-04-2021 Glucose [Mass/Vol] 85 mg/dL 70-100 [facility] Comment on above: ADA recommended refe rence range Random Glucose Reference Range is dependent on time and content of last meal. Glucose of more than 200 mg/dL in a nonstressed, ambulatory subject supports the diagnosis of Diabetes Mellitus. Serum or plasma potassium me asurement (moles/volume)Ordered By: Ken Ortiz on 10-04-2021 Potassium [Moles/Vol] 4.4 mmol/L 3.5-5.1 [facility] Serum or plasma sodium measu rement (moles/volume)Ordered By: Ken Ortiz on 10-04-2021 Sodium [Moles/Vol] 138 mmol/L 136-146 [facility] Serum or plasma total biliru bin measurement (mass/volume)Ordered By: Ken Ortiz on 10-04-2021 Bilirubin [Mass/Vol] 0.5 mg/dL 0.3-1.2 [facility] Serum or plasma total carbon dioxide measurement (moles/volume)Ordered By: Ken Ortiz on 10-04-2021 CO2 [Moles/Vol] 30.4 mmol/L 22.0-30.0 [facility] Serum or plasma urea nitroge n measurement (mass/volume)Ordered By: Ken Ortiz on 10-04-2021 Urea nitrogen [Mass/Vol] 13 mg/dL 9-23 [facility] Serum tissue transglutaminas e (tTG) IgA antibody assay (units/volume)Ordered By: Ken Ortiz on 10-04-2021 tTG IgA Qn (S) <2 U/mL 0-3 [facility] Comment on above: Negative 0 - 3 Weak Positive 4 - 10 Positive >10 Tissue Transglutaminase (tTG) has been identified as the endomysial antigen. Studies have demonstr- ated that endomysial IgA antibodies have over 99% specificity for gluten sensitive enteropathy. Serum tissue transglutaminas e (tTG) IgG antibody assay (units/volume)Ordered By: Ken Ortiz on 10-04-2021 tTG IgG Qn (S) <2 U/mL 0-5 [facility] Comment on above: Negative 0 - 5 Weak Positive 6 - 9 Positive >9 Vital Signs Date Time Vital Sign Value Performing Clinician Facility 08-05-2024 13:54-0400 Body height 152.4 cm Sigifredo Mckeon DPM FACFAS Work Phone: [facility] 08-05-2024 13:54-0400 Body mass index (BMI) [Ratio] 27.15 kg/m2 Sigifredo Caalce DPM FACFAS Work Phone: [facility] 08-05-2024 13:54-0400 Body weight 63.05 kg Sigifredo Caalce DPM FACFAS Work Phone: [facility] 08-05-2024 13:54-0400 Diastolic blood pressure 70 mm[Hg] Sigifredo Caalce DPM FACFAS Work Phone: [facility] 08-05-2024 13:54-0400 Heart rate 78 /min Sigifredo Caalce DPM FACFAS Work Phone: [facility] 08-05-2024 13:54-0400 Systolic blood pressure 114 mm[Hg] Sigifredo Mckeon DPM FACFAS Work Phone: [facility] 07-26-2024 13:56-0400 Body height 152.4 cm Alice Luna-Sharkey DO Work Phone: [facility] 07-26-2024 13:56-0400 Body mass index (BMI) [Ratio] 27.3 kg/m2 Alice Luna-Sharkey DO Work Phone: [facility] 07-26-2024 13:56-0400 Body weight 63.5 kg Alice Luna-Sharkey DO Work Phone: [facility] 07-26-2024 13:56-0400 Diastolic blood pressure 76 mm[Hg] Alice Luna-Sharkey DO Work Phone: [facility] 07-26-2024 13:56-0400 Heart rate 69 /min Alice Luna-Sharkey DO Work Phone: [facility] 07-26-2024 13:56-0400 Systolic blood pressure 117 mm[Hg] Alice Luna-Sharkey DO Work Phone: [facility] 07-26-2024 09:05-0400 Body height 152.4 cm Alice Luna-Sharkey DO Work Phone: [facility] 07-26-2024 09:05-0400 Body mass index (BMI) [Ratio] 27.3 kg/m2 Alice Luna-Sharkey DO Work Phone: [facility] 07-26-2024 09:05-0400 Body weight 63.5 kg Alice Luna-Sharkey DO Work Phone: [facility] 07-26-2024 09:05-0400 Diastolic blood pressure 71 mm[Hg] Alice Luna-Sharkey DO Work Phone: [facility] 07-26-2024 09:05-0400 Heart rate 65 /min Alice Luna-Sharkey DO Work Phone: [facility] 07-26-2024 09:05-0400 SaO2% (BldA) [Mass fraction] 99 % Alice Luna-Sharkey DO Work Phone: [facility] 07-26-2024 09:05-0400 Systolic blood pressure 130 mm[Hg] Alice Luna-Sharkey DO Work Phone: [facility] 05-13-2024 09:46-0500 Body mass index (BMI) [Ratio] 27.22 kg/m2 Alice Luna-Sharkey DO Work Phone: [facility] 05-13-2024 09:46-0500 Body weight 63.23 kg Alice Luna-Sharkey DO Work Phone: [facility] 05-13-2024 09:46-0500 Diastolic blood pressure 70 mm[Hg] Alice Luna-Sharkey DO Work Phone: [facility] 05-13-2024 09:46-0500 Heart rate 78 /min Alice Luna-Sharkey DO Work Phone: [facility] 05-13-2024 09:46-0500 SaO2% (BldA) [Mass fraction] 99 % Alice Luna-Sharkey DO Work Phone: [facility] 05-13-2024 09:46-0500 Systolic blood pressure 114 mm[Hg] Alice Luna-Sharkey DO Work Phone: [facility] 02-16-2024 09:08-0500 Body height 152.4 cm Adry Alfonso [employer] Work Phone: [facility] 02-16-2024 09:08-0500 Body mass index (BMI) [Ratio] 26.37 kg/m2 Adry Alfonso [employer] Work Phone: [facility] 02-16-2024 09:08-0500 Body weight 61.24 kg Adry Didion [employer] Work Phone: [facility] 02-16-2024 09:08-0500 Diastolic blood pressure 78 mm[Hg] Adry Didion [employer] Work Phone: [facility] 02-16-2024 09:08-0500 Heart rate 80 /min Adry Didion [employer] Work Phone: [facility] 02-16-2024 09:08-0500 Respiratory rate 16 /min Adry Didion [employer] Work Phone: [facility] 02-16-2024 09:08-0500 SaO2% (BldA) [Mass fraction] 99 % Adry Didion [employer] Work Phone: [facility] 02-16-2024 09:08-0500 Systolic blood pressure 128 mm[Hg] Adry Didion [employer] Work Phone: [facility] 02-09-2024 12:56-0500 Body mass index (BMI) [Ratio] 26.37 kg/m2 Alma Visci DO Work Phone: [facility] 02-09-2024 12:56-0500 Body weight 61.24 kg Alma Visci DO Work Phone: [facility] 02-09-2024 12:56-0500 Diastolic blood pressure 72 mm[Hg] Alma Visci DO Work Phone: [facility] 02-09-2024 12:56-0500 Systolic blood pressure 122 mm[Hg] Alma Visci DO Work Phone: [facility] 11-18-2023 12:01-0400 Body mass index (BMI) [Ratio] 26.37 kg/m2 Alma Visci DO Work Phone: [facility] 11-18-2023 12:01-0400 Body weight 61.24 kg Alma Visci DO Work Phone: [facility] 11-18-2023 12:01-0400 Diastolic blood pressure 72 mm[Hg] Alma Visci DO Work Phone: [facility] 11-18-2023 12:01-0400 Systolic blood pressure 110 mm[Hg] Alma Visci DO Work Phone: [facility] 07-31-2023 08:37-0400 Body height 152.4 cm [facility] 07-31-2023 08:37-0400 Body mass index (BMI) [Ratio] 27.3 kg/m2 [facility] 07-31-2023 08:37-0400 Body weight 63.5 kg [facility] 07-31-2023 08:37-0400 Diastolic blood pressure 77 mm[Hg] [facility] 07-31-2023 08:37-0400 Heart rate 71 /min [facility] 07-31-2023 08:37-0400 SaO2% (BldA) [Mass fraction] 99 % [facility] 07-31-2023 08:37-0400 Systolic blood pressure 136 mm[Hg] [facility] 07-11-2023 10:22-0400 Body height 152.4 cm [facility] 07-11-2023 10:22-0400 Body mass index (BMI) [Ratio] 28.2 kg/m2 [facility] 07-11-2023 10:22-0400 Body weight 65.48 kg [facility] 07-11-2023 10:22-0400 Diastolic blood pressure 81 mm[Hg] [facility] 07-11-2023 10:22-0400 Heart rate 67 /min [facility] 07-11-2023 10:22-0400 Systolic blood pressure 146 mm[Hg] [facility] 05-08-2023 14:36-0500 Body height 152.4 cm Alma Visci DO Work Phone: [facility] 05-08-2023 14:36-0500 Body mass index (BMI) [Ratio] 28.32 kg/m2 Alma Visci DO Work Phone: [facility] 05-08-2023 14:36-0500 Body weight 65.77 kg Alma Visci DO Work Phone: [facility] 05-08-2023 14:36-0500 Diastolic blood pressure 84 mm[Hg] Alma Langi DO Work Phone: [facility] 05-08-2023 14:36-0500 Systolic blood pressure 124 mm[Hg] Alma Visci DO Work Phone: [facility] 04-24-2023 10:05-0500 Body mass index (BMI) [Ratio] 28.55 kg/m2 Alice Luna-Sharkey DO Work Phone: [facility] 04-24-2023 10:05-0500 Body weight 66.32 kg Alice Luna-Sharkey DO Work Phone: [facility] 04-24-2023 10:05-0500 Diastolic blood pressure 64 mm[Hg] Alice Luna-Sharkey DO Work Phone: [facility] 04-24-2023 10:05-0500 Heart rate 64 /min Alice Luna-Sharkey DO Work Phone: [facility] 04-24-2023 10:05-0500 SaO2% (BldA) [Mass fraction] 98 % Alice Luna-Sharkey DO Work Phone: [facility] 04-24-2023 10:05-0500 Systolic blood pressure 112 mm[Hg] Alice Luna-Sharkey DO Work Phone: [facility] 12-09-2022 10:00-0400 Body height 152.4 cm Gabe Gonzalez Other [facility] Other 12-09-2022 10:00-0400 Body mass index (BMI) [Ratio] 32.22 kg/m2 Gabe Gonzalez Other [facility] Other 12-09-2022 10:00-0400 Body weight 74.84 kg Gabe Gonzalez Other [facility] Other 12-09-2022 10:00-0400 Diastolic blood pressure 81 mm[Hg] Gabe Saulton Other [facility] Other 12-09-2022 10:00-0400 Systolic blood pressure 129 mm[Hg] Gabe Gonzalez Other [facility] Other 09-03-2022 13:50-0400 Diastolic blood pressure 79 mm[Hg] DO Alice Luna-Sharkey Work Phone: [facility] 09-03-2022 13:50-0400 Heart rate 56 /min DO Alice Luna-Sharkey Work Phone: [facility] 09-03-2022 13:50-0400 SaO2% (BldA) [Mass fraction] 100 % DO Alice Luna-Sharkey Work Phone: [facility] 09-03-2022 13:50-0400 Systolic blood pressure 125 mm[Hg] DO Alice Luna-Sharkey Work Phone: [facility] 09-03-2022 12:25-0400 Body height 152.4 cm DO Alice Luna-Sharkey Work Phone: [facility] 09-03-2022 12:25-0400 Body temperature 97.9 [degF] DO Alice Luna-Sharkey Work Phone: [facility] 09-03-2022 12:25-0400 Body weight 72.12 kg DO Alice Luna-Sharkey Work Phone: [facility] 09-03-2022 12:25-0400 Respiratory rate 16 /min DO Alice Luna-Sharkey Work Phone: [facility] 05-02-2022 20:00-0500 Diastolic blood pressure 86 mm[Hg] DO Alice Luna-Sharkey Work Phone: [facility] 05-02-2022 20:00-0500 Heart rate 66 /min DO Alice Luna-Sharkey Work Phone: [facility] 05-02-2022 20:00-0500 Respiratory rate 20 /min DO Alice Luna-Sharkey Work Phone: [facility] 05-02-2022 20:00-0500 SaO2% (BldA) [Mass fraction] 99 % DO Alice Luna-Sharkey Work Phone: [facility] 05-02-2022 20:00-0500 Systolic blood pressure 137 mm[Hg] DO Alice Luna-Sharkey Work Phone: [facility] 05-02-2022 16:29-0500 Body height 152.4 cm DO Alice Luna-Sharkey Work Phone: [facility] 05-02-2022 16:29-0500 Body temperature 97.5 [degF] DO Alice Luna-Sharkey Work Phone: [facility] 05-02-2022 16:29-0500 Body weight 72.12 kg DO Alice Luna-Sharkey Work Phone: [facility] 11-09-2021 13:34-0400 Body height 152.4 cm DO Alice Luna-Sharkey Work Phone: [facility] 11-09-2021 13:34-0400 Body temperature 98 [degF] DO Alice Luna-Sharkey Work Phone: [facility] 11-09-2021 13:34-0400 Body weight 71 kg DO Alice Luna-Sharkey Work Phone: [facility] 11-09-2021 13:34-0400 Diastolic blood pressure 80 mm[Hg] DO Alice Luna-Sharkey Work Phone: [facility] 11-09-2021 13:34-0400 Heart rate 78 /min DO Alice Luna-Eliot Work Phone: [facility] 11-09-2021 13:34-0400 Respiratory rate 18 /min DO Alice Luna-Eliot Work Phone: [facility] 11-09-2021 13:34-0400 SaO2% (BldA) [Mass fraction] 97 % DO Alice Luna-Eliot Work Phone: [facility] 11-09-2021 13:34-0400 Systolic blood pressure 187 mm[Hg] DO Alice Luna-Eliot Work Phone: [facility] 12-20-2020 14:15-0400 Body height 152.4 cm Ken Ortiz Other [facility] Other 12-20-2020 14:15-0400 Body mass index (BMI) [Ratio] 31.05 kg/m2 Ken Ortiz Other [facility] Other 12-20-2020 14:15-0400 Body weight 72.12 kg Ken Ortiz Other [facility] Other Encounters Encounter Date Encounter Type Care Provider Facility Start: 08-05-2024 End: 08-05-2024 Bamboo flowsheet Sigifredo R Dolce DPM FACFAS Work Phone: [facility] Start: 08-05-2024 End: 08-05-2024 Bamboo flowsheet Sigifredo R Dolce DPM FACFAS Work Phone: [facility] Start: 08-05-2024 End: 08-05-2024 Office outpatient new 30 minutes Sigifredo R Dolce DPM FACFAS Work Phone: [facility] Comment on above: Metatarsal deformity , right (Primary Dx); Santana neuroma, right; Pain in right toe(s) Start: 08-05-2024 End: 08-05-2024 ambulatory SIGIFREDO MCKEON Not Available Start: 07-26-2024 End: 07-26-2024 ambulatory Alice Luna-Sharkey DO Work Phone: [facility] Work Phone: Start: 07-26-2024 End: 07-26-2024 Patient encounter procedure Alice Luna-Sharkey DO Work Phone: [facility] Work Phone: Start: 07-26-2024 End: 07-26-2024 ambulatory Alice Luna-Sharkey DO Work Phone: [facility] Work Phone: Start: 07-26-2024 End: 07-26-2024 Patient encounter procedure Alice Luna-Sharkey DO Work Phone: [facility] Work Phone: Start: 06-28-2024 End: 06-28-2024 Patient encounter procedure Alice Luna-Sharkey DO Work Phone: [facility] Start: 06-28-2024 End: 06-28-2024 ambulatory Alice Luna-Sharkey DO Work Phone: [facility] Work Phone: Start: 05-13-2024 End: 05-13-2024 Patient encounter status Alice Baca Luna-Sharkey DO Work Phone: [facility] Work Phone: Start: 05-13-2024 End: 05-13-2024 Periodic preventive med est patient 40-64yrs Alice Baca Luna-Sharkey DO Work Phone: [facility] Comment on above: Encounter for preven tative adult health care examination (Primary Dx); Inflammatory arthritis; Class 1 obesity; Exercise-induced asthma (CMS/HCC); Depression, major, in remission (HCC) (CMS/HCC); Postmenopausal; BMI 32.0-32.9,adult; Hormone replacement therapy; Gastroesophageal reflux disease without esophagitis Start: 05-13-2024 End: 05-13-2024 ambulatory ALICE Keven POLO Not Available Start: 02-16-2024 End: 02-16-2024 Office outpatient visit 25 minutes Adry Alfonso [employer] Work Phone: [facility] Comment on above: Acute cough (Primary Dx); Side effect of medication; Lower respiratory tract infection; Shortness of breath; Sebaceous cyst of finger; [place] nodes; Family history of rheumatoid arthritis Start: 02-16-2024 End: 02-16-2024 ambulatory ADRY ALFONSO Not Available Start: 02-10-2024 End: 02-10-2024 ambulatory ALMA A VISCI Not Available Start: 02-09-2024 End: 02-09-2024 ambulatory ALMA A VISCI Not Available Start: 02-09-2024 End: 02-09-2024 Patient encounter status Alma A Visci DO Work Phone: [facility] Start: 02-09-2024 End: 02-09-2024 Periodic preventive med est patient 40-64yrs Alma A Visci DO Work Phone: [facility] Comment on above: Encounter for gyneco logical examination with abnormal finding (Primary Dx); Encounter for screening mammogram for malignant neoplasm of breast; Abnormal weight gain; Postmenopausal HRT (hormone replacement therapy); Lichen sclerosus; Anxiety, generalized ([facility]) Start: 12-18-2023 End: 12-18-2023 Telephone encounter Alma A Visci DO Work Phone: [facility] Start: 11-18-2023 End: 11-18-2023 Office outpatient visit 15 minutes Alma A Visci DO Work Phone: [facility] Comment on above: Abnormal weight gain (Primary Dx); Vaginal itching; Sleep apnea, unspecified type; Primary osteoarthritis of other site; BMI 26.0-26.9,adult Start: 11-18-2023 End: 11-18-2023 ambulatory ALMA A VISCI Not Available Start: 09-29-2023 End: 09-29-2023 ambulatory ALICE POLO Not Available Start: 08-27-2023 End: 08-27-2023 Patient encounter procedure DO Alice Luna-Sharkey Work Phone: [facility] Work Phone: Start: 08-27-2023 End: 08-27-2023 ambulatory DO Alice Luna-Sharkey Work Phone: [facility] Work Phone: Start: 07-31-2023 End: 07-31-2023 ambulatory [facility] Work Phone: Start: 07-31-2023 End: 07-31-2023 [facility] Work Phone: Start: 07-11-2023 End: 07-11-2023 ambulatory [facility] Work Phone: Start: 07-11-2023 End: 07-11-2023 Patient encounter procedure [facility] Gastroenterology Work Phone: Start: 05-08-2023 End: 05-08-2023 Office outpatient visit 15 minutes Alma Disla DO Work Phone: [facility] Comment on above: Body mass index (BMI ) 28.0-28.9, adult; Abnormal weight gain; Yeast infection; BMI 29.0-29.9,adult Start: 04-24-2023 End: 04-24-2023 Patient encounter status Alice Stoney DO Work Phone: [facility] Work Phone: Start: 04-24-2023 End: 04-24-2023 Periodic preventive med est patient 40-64yrs Alice Luna-Sharkey DO Work Phone: [facility] Comment on above: Encounter for preven tative adult health care examination (Primary Dx); Arthritis, lumbar spine; Depression, major, in remission (HCC) (CMS/HCC); Gastroesophageal reflux disease without esophagitis; Postmenopausal; Hormone replacement therapy; Class 1 obesity Start: 12-09-2022 End: 12-09-2022 ambulatory Gabe Gonzalez Other [employer] Other Start: 12-09-2022 Office outpatient vi sit 15 minutes Gabe Gonzalez [facility] Start: 09-26-2022 End: 09-26-2022 ambulatory DO Alice Polo Work Phone: [facility] Work Phone: Start: 09-26-2022 End: 09-26-2022 Patient encounter procedure DO Alice Polo Work Phone: [facility] Work Phone: Start: 09-04-2022 End: 09-04-2022 ambulatory Edison Monroe Other [employer] Other Start: 09-04-2022 Telephone encounter Edison Monroe [facility] Start: 09-03-2022 End: 09-03-2022 Admission to same day surgery center DO Alice Polo Work Phone: [facility] Work Phone: Start: 08-29-2022 ambulatory ALICE FERRER Facility:H1 Start: 06-12-2022 End: 06-12-2022 ambulatory DO Alice Polo Work Phone: [facility] Work Phone: Start: 06-12-2022 End: 06-12-2022 Patient encounter procedure DO Alice Polo Work Phone: [facility] Work Phone: Start: 05-30-2022 End: 05-31-2022 ambulatory ALICE FERRER Facility:[facility]1 Start: 05-21-[address] Alice Polo Facility:[facility] Start: 05-14-2022 End: 05-14-2022 ambulatory ALICERA ROBSON CURTISY Facility: Start: 05-10-[address] Alice romero MarkEliot Facility:[id number] Start: 05-07-2022 End: 05-07-2022 ambulatory DO Alice Luna-Sharkey Work Phone: [facility] Work Phone: Start: 05-07-2022 End: 05-07-2022 Patient encounter procedure DO Alice Luna-Eliot Work Phone: [facility]ro[facility] Work Phone: Start: 05-02-2022 End: 05-02-2022 Emergency department patient visit DO Alice Luna-Eliot Work Phone: [facility] Work Phone: Start: 05-02-2022 End: 05-03-2022 ambulatory ALICE FERRER Facility: Start: 04-16-2022 End: 04-16-2022 ambulatory ALICE FERRER Facility: Start: 02-07-2022 End: 02-08-2022 ambulatory ALICE FERRER Facility:[facility]1 Start: 11-15-2021 End: 11-16-2021 ambulatory JONI MAHMOOD . Facility:[facility]1 Start: 11-09-2021 End: 11-09-2021 Emergency department patient visit DO Alice Luna-Eliot Work Phone: [facility] Start: 10-16-2021 End: 10-16-[address] ARNAV COREA . Facility: Start: 10-11-2021 End: 10-11-2021 ambulatory Ken Ortiz Other [employer] Other Start: 10-11-2021 Telephone encounter Ken Ortiz [facility] Start: 10-04-2021 End: 10-04-2021 Patient encounter procedure DO Alice Luna-Sharkey Work Phone: [facility] Start: 10-03-2021 End: 10-03-2021 ambulatory Ken Ortiz Other [employer] Other Start: 10-03-2021 Telephone encounter Ken Ortiz [facility] Gastroenterology Start: 09-20-2021 End: 09-21-2021 ambulatory JONI MAHMOOD . Facility: Start: 02-26-2021 End: 02-26-2021 ambulatory Ken Ortiz Other [employer] Other Start: 02-26-2021 Telephone encounter Ken Ortiz [facility] Gastroenterology Start: 12-20-2020 Office outpatient vi sit 25 minutes Ken Ortiz [facility] Gastroenterology Procedures Date Procedure Procedure Detail Performing Clinician Start: 02-10-2024 Mammography Adry Tianion [employer] Work Phone: Start: 12-23-2022 Mammography Alice Luna-Sharkey DO Work Phone: Start: 09-03-2022 Esophagogastroduodenoscopy DO Alice Luna-Sharkey Work Phone: Start: 05-02-2022 Plain chest X-ray DO Alice Luna-Sharkey Work Phone: Start: 11-09-2021 CT of facial bones without contrast DO S love Luna-Sharkey Work Phone: Start: 12-29-2020 Colonoscopy Alice Luna-Sharkey DO Work Phone: Plan of Treatment Date Care Activity Detail Author Start: 12-29-2030 Screening for malign ant neoplasm of colon [facility] Start: 02-10-2025 End: 02-10-2025 Patient encounter procedure 02/10/2025 2:15 PM EST Office Visit [facility] [address] [place] [phone] Alma Disla, DO [address] [place] [address] [facility] Start: 02-09-2025 Screening for malign ant neoplasm of breast Mammogram [facility] Start: 08-19-2024 End: 08-19-2024 Clinical Support 08/19/2024 2:10 PM EDT Clinical Support [facility] [address] [place] [phone] Sigifredo Mckeon, DPM [facility] [address] [place] [address] [facility] Start: 08-18-2024 End: 08-18-2024 Patient encounter procedure 08/18/2024 9:30 AM EDT Office Visit [facility] [address] [place] [phone] Alice Polo, DO [address] [place] [address] [facility] Start: 08-05-2024 End: 08-05-2024 Patient encounter procedure 08/05/2024 2:00 PM EDT Office Visit [facility] [address] [place] [address] Sigifredo Mckeon, DPM [facility] [address] [place] [address] Arrived [facility] Comment on above: Arrived Start: 04-27-2024 End: 04-27-2024 Patient encounter procedure 04/27/2024 10:00 AM EST Office Visit [facility] [address] [place] [phone] Alice Polo, DO [address] [place] [address] [facility] Start: 02-16-2024 End: 02-15-2025 XR Chest 2 Views [facility] Work Phone: Comment on above: Expected: 02/16/2024 , Expires: 02/15/2025 Start: 02-10-2024 End: 02-10-2024 Professional / ancillary services management 02/10/2024 4:00 PM EST Ancillary Procedure [facility] [place] [address] [place] [phone] [facility] [place] Start: 02-09-2024 End: 04-10-2025 DBT Breast - bilateral screening Bilateral screening mammogram with tomosynthesis Imaging Routine Encounter for screening mammogram for malignant neoplasm of breast Expected: 02/09/2024, Expires: 04/10/2025 [facility] Work Phone: Comment on above: Expected: 02/09/2024 , Expires: 04/10/2025 Start: 02-09-2024 End: 02-09-2024 Patient encounter procedure 02/09/2024 12:15 PM EST Office Visit [facility] [address] [place] [phone] Visci, Alma A, DO [address] [place], [place] [id number] [facility] Start: 12-24-2023 Screening for malign ant neoplasm of breast Mammogram [facility] Start: 11-23-2023 Influenza vaccination Influenza Vacc ine (#1) [facility] Start: 04-28-2023 End: 04-28-2023 Patient encounter procedure 04/28/2023 9:30 AM EST Office Visit [facility] [address] [place] [phone] Visci, Alma A, DO [address] [place] [address] BMI 29.0-29.9,adult [facility] Comment on above: BMI 29.0-29.9,adult Start: 09-03-2022 [facility] Start: 1960 Screening for malign ant neoplasm of colon [facility] Patient Education [facility] Work Phone: Patient referral [facility] Work Phone: SUPERFICIAL WOUND (HTRX) SUPERFICIAL WOUND (HTRX) Lab Routine Sebaceous cyst of finger Ordered: 02/16/2024 [facility] Comment on above: Ordered: 02/16/2024 Immunizations Immunization Date Immunization Notes Care Provider Meseret inman 12-08-2023 influenza, injectabl e, madin nyla canine kidney, preservative free Alice Luna-Sharkey DO Work Phone: [facility] 12-25-2022 Influenza, injectabl e, Madin Nyla Canine Kidney, preservative free, quadrivalent Alma Visci DO Work Phone: [facility] 12-25-2022 RSV, recombinant, protein subunit RSVpreF, adjuvant reconstitu, 120mcg/0.5mL, PF (Arexvy) Alice Luna-Sharkey DO Work Phone: [facility] 12-25-2022 influenza virus vaccine, unspecified formulation Alma Visci DO Work Phone: [facility] 12-31-2021 Influenza, injectabl e, Madin Nyla Canine Kidney, quadrivalent with preservative Alma Visci DO Work Phone: [facility] 05-28-2021 zoster vaccine recombinant Alice Luna-Sharkey DO Work Phone: [facility] 02-07-2021 zoster vaccine recombinant Alice Luna-Sharkey DO Work Phone: [facility] 12-13-2020 influenza, injectabl e, quadrivalent, preservative free Alma Visci DO Work Phone: [facility] 06-29-2020 COVID-19 mRNA, Comirnaty (Pfizer) DO Alice Luna-Sharkey Work Phone: [facility] 06-09-2020 COVID-19 mRNA, Comirnaty (Pfizer) DO Alice Luna-Sharkey Work Phone: [facility] 01-10-2020 influenza, injectabl e, quadrivalent, preservative free Alma Visci DO Work Phone: [facility] 11-22-2018 influenza, seasonal, injectable, preservative free Alma Visci DO Work Phone: [facility] 02-09-2018 influenza, injectabl e, madin nyla canine kidney, preservative free Alma Visci DO Work Phone: [facility] 04-15-2017 seasonal influenza, intradermal, preservative free Alma Visci DO Work Phone: [facility] 01-08-2016 seasonal influenza, intradermal, preservative free Alma Visci DO Work Phone: [facility] 06-29-2015 tetanus toxoid, redu yoselin diphtheria toxoid, and acellular pertussis vaccine, adsorbed Alice Luna-Sharkey DO Work Phone: [facility] 01-18-2015 influenza, injectabl e, quadrivalent, preservative free Alma Visci DO Work Phone: [facility] 01-28-2009 novel [id number], preservative-free, injectable Alma Visci DO Work Phone: [facility] Payers Date Payer Category Payer Self-pay [id number] 2020 Medicaid [employer] [place] [id number] 2020-Present [address] [place] [address] [id number] 2020 Private Health Insurance [facility] MEDICAID [id number] 1960 Unknown [id number] 2.16.840.1.008002.3.579.2. 356 1960 Unknown [id number] 2.16.840.1.464185.3.579.2. 593 1962 Unknown [id number] 2.16.840.1.368618.3.579.2. 593 1962 Unknown [id number] 2.16.840.1.692099.3.579.2. 593 1962 Unknown [id number] 2.16.840.1.722876.3.579.2. 593 1962 Unknown [id number] 2.16.840.1.607197.3.579.2. 593 1962 Unknown [id number] 2.16.840.1.867676.3.579.2. 593 1962 Unknown [id number] 2.16.840.1.952962.3.579.2. 593 1962 Unknown [id number] 2.16.840.1.897286.3.579.2. 593 1962 Unknown [id number] 2.16.840.1.927558.3.579.2. 593 1962 Unknown [id number] 2.16.840.1.950989.3.579.2. 593 1962 Unknown [id number] 2.16.840.1.269923.3.579.2. 593 1962 Unknown [id number] 2.16.840.1.493353.3.579.2. 1259 1962 Unknown [id number] 2.16.840.1.370671.3.579.2. 1259 1962 Unknown [id number] 2.16.840.1.994618.3.579.2. 1258 1962 Unknown [id number] 2.16.840.1.122928.3.579.2. 1258 1962 Unknown [id number] 2.16.840.1.283396.3.579.2. 1258 1962 Unknown [id number] 2.16.840.1.734140.3.579.2. 1258 1962 Unknown [id number] 2.16.840.1.189902.3.579.2. 1258 1962 Unknown [id number] 2.16.840.1.665231.3.579.2. 9 1959 Medicaid [id number] 1959 Unknown [id number] 2..840.1.849837.19 Private Health Insurance [id number] Unknown [place] BC/BS [id number] Unknown HCAP/HFA/FAP Active [id number] Unknown [id number] 2.840.1.839743.3.579.2. 531 Unknown [id number] 2.840.1.845959.3.579.2. 531 Social History Date Type Detail Facility Start: 04-24-2023 End: 05-13-2024 Sex Assigned At [facility] Work Phone: Start: 11-09-2021 Tobacco smoking stat us NEIS Never smoked tobacco (finding) [facility] Start: 1960 Sex Assigned At Female F [facility] Start: 05-02-2022 End: 09-29-2023 Tobacco smoking status NHIS Ex-smoker (finding) [facility] End: 03-24-2012 History of tobacco use Current smoker [facility] End: 03-24-2012 History of tobacco use Cigarette Smoker [facility] Start: 01-08-2023 End: 09-29-2023 Tobacco use and exposure Smokeless tobacco non-user [facility] Start: 04-27-2023 End: 08-05-2024 Alcohol intake Current drinker of alcohol (finding) [facility] Start: 04-24-2023 End: 05-13-2024 History of Social function [facility] Work Phone: How often to you hav e a drink containing alcohol? 2-3 time sa week [facility] Work Phone: How many standard drinks containing alcohol do you have on a typical day? 1 or 2 [facility] How often do you hav e 6 or more drinks on 1 occasion? Never [facility] Start: 04-24-2023 Alcohol Comment Once a week [facility] Start: 12-04-2022 Gender identity Identifies as female gender (finding) [facility] Start: 05-13-2024 Alcohol Comment 1-2 drinks/2-3x a we ek [facility] Start: 06-29-2024 End: 07-26-2024 Sex Female (finding) [facility] Medical Equipment Procedure Code Equipment Code Equipment Origin al Text Equipment Identifier Dates Tendon repair Tendon/ligament bone anchor, non-bioabsorbable ([id number] [facility] Start: 12-10-2018 Goals Date Patient Goal Desired Activity /State Clinical Notes 12-20-2020 to 08-05-2024 Sigifredo Mckeon DPM [facility] - 08/05/2024 2:00 PM EDT Note Date & Type Note Facility 08-05-2024 History of Presen t illness Narrative Images from the original note were not included. Patient: Giselle Georges : 1960 PCP: Alice Polo, DO SUBJECTIVE This is a 64 y.o. female that presents today with a chief complaint of burning and tingling about the right 2nd interspace. Patient states they feel like they are walking on a rock in their shoe. They feel burning and tingling radiating to the lesser digits. They feel as if the sock is curled up in their shoe. This has progressively worsened over time. The patient has significant limitation in activities of daily living secondary to the pain. [...] esophagitis Postmenopausal Depression, major, in remission (HCC) ([facility]) Hormone replacement therapy Inflammatory arthritis 05/13/2024 Resolved [...] 1 spray into each nostril Daily as needed, Disp: , Rfl: hydroxychloroquine (Plaquenil) 200 MG tablet, Take 200 mg by mouth in the morning and 200 mg before bedtime. Rx'd by Dr. Tejada Pt is taking [...] before meals., Disp: 30 tablet, Rfl: 0 Review of [...] < 3 seconds Digits 1-5 bilateral NEURO: Luther Maritza 5.07 monofilament was intact B/L. Vibratory sensation was intact B/L Musculoskeletal: Muscle strength was +5 over 5 all intrinsic and extrinsic muscles tested. There is significant pain with direct palpation the right 2nd interspace. Significant pain noted with lateral compression of the lesser metatarsals. Mild swelling noted within the interspace. Significant loss of plantar fat pad with prominent lesser metatarsal heads noted. There is no pain with range of motion of the ankle or subtalar joint. Mild gastrocnemius-soleus equinus. Radiographs: AP/MO/LAT: Diagnostic ultrasound: Diagnostic ultrasound 12 megahertz linear probe Hypoechoic neuroma about the 2nd interspace right foot ASSESSMENT 1. Santana neuroma, right 2. Metatarsal deformity, right PLAN The patient was educated on the etiology of Intermetatarsal neuroma right. I discussed conservative options including wider toe box shoes anti-inflammatory medications. [...] laboratory. LOW Cedillo documented in this encounter [facility] 07-26-2024 Evaluation note Diagnosis Onset Date Resolution BMI 27.0-27.9,adult acute July 262024 8:56am Chronic intermittent hypoxia with obstructive sleep apnea acute July 26, 2024 8:56am GERD (gastroesophageal reflux disease) acute July 26, 2024 8: 56am Intolerance to BiPAP/CPAP acute July 26, 2024 8: 56am Obstructive sleep apnea acute M 2024 8:56am GERD (gastroesophageal reflux disease) acute July 26, 2024 1: 52pm [facility] Work Phone: 1(643) 464-222702-20-2025 History of Present illness Narrative* Alice Polo DO - 05/13/2024 10:51 PM ESTAssociated Problem(s): Gastroesophageal reflux disease without esophagitis -Pt advised to avoid food triggers and follow conservative management measures (including avoiding tight fitting pants, weight management, and elevating HOB as indicated) to keep GERD symptoms under control. -Take medications as recommended and monitor for alarm symptoms . * Alice Polo DO - 05/13/2024 10:51 PM ESTAssociated Problem(s): Depression, major, in remission (HCC) ([facility]) She reports good sx control at this time. Will continue current Rx (Celexa 30 mg) daily and monitorsx * Alice Polo, - 05/13/2024 10:50 PM ESTAssociated Problem(s): Exercise-induced asthma (CMS/HCC) She reports she had to use albuterol when she had recent bronchitis, but not a routine basis. Will monitor frequency of use and consider change to prn Airsupra if she finds herself needing a rescue inhaler * Alice Polo DO - 05/13/2024 10:46 PM ESTAssociated Problem(s): Inflammatory arthritis She reports she has an upcoming appt with Ophthal for an eye exam for a baseline exam. She reports she will have labs (per Dr Tejada) in ~2 months * Alice Polo, - 05/13/2024 10:25 AM ESTAssociated Problem(s): Class 1 obesity She has done well on the phentermine. She tried to stop this, but has had ~5# increase. She has been off for ~3 weeks. Will resume, but I did advise she may be able to decrease to 1/2 tab. She will see how she is doingback on the whole tab and then consider decreasing dose. I also advised her that we could change to 8 mg tabs that she could take up to 3 times a day, but will not pursue this change at this time. * Alice Polo DO - 05/13/2024 9:30 AM EST Images from the original note were not included. Subjective Patient ID: Giselle Georges (: 1960) is a 63 y.o. female who presents for Annual Adult Preventive Visit. HPI : Giselle is being seen today for an annual adult preventive visit. Lab results from 03/2022 are documented in EHR for reference. Care gaps do not indicate any recommended screenings or vaccinations due at this time. Pt will complete a PHQ2 screening during her visit. Pt would like to discuss restarting the phentermine that she had been taking to help with obesity management. She was getting this from Dr. Disla ([facility]) and decided to take a break from it for a few months to see how she could do without it. She last had it filled 02/06/24. She reports weight increased from 135# to ~140# on her home scale. Pt is willing to sign a controlled substance agreement and come in for routine monitoring. Dr Tejada/[place] started her on plaquenil ~ 3 weeks ago She has appt in June for eye exam Current Outpatient Medications Medication Instructions albuterol HFA (Ventolin HFA) 90 mcg/act inhaler 2 puffs, Inhalation, Every 6 hours PRN baclofen (LIORESAL) 5 mg, Nightly PRN citalopram (CELEXA) 10 mg, Oral, Daily, With 20mg to equal 30mg daily citalopram (CELEXA) 20 mg, Oral, Every morning clobetasol (Temovate) 0.05 % cream Topical, 2 times daily estradiol (ESTRACE) 0.5 mg, Oral, Daily fluticasone (Flonase) 50 MCG/ACT nasal spray 1 spray, Daily PRN hydroxychloroquine (PLAQUENIL) 200 mg, 2 times daily pantoprazole (PROTONIX) 40 mg, 2 times daily phentermine (ADIPEX-P) 37.5 mg, Oral, Daily before breakfast Allergies Allergen Reactions Celebrex [Celecoxib] Other Pt felt sick, fatigued, sob, irritable Sulfa Antibiotics Hives and Rash Other Reaction(s): hives Patient Active Problem List Diagnosis Class 1 obesity Exercise-induced asthma (CMS/HCC) Arthritis, lumbar spine Gastroesophageal reflux disease without esophagitis Postmenopausal Depression, major, in remission (HCC) (CMS/HCC) Hormone replacement therapy Inflammatory arthritis Social History Tobacco Use Smoking status: Former Current packs/day: 0.00 Types: Cigarettes Quit date: 03/24/2012 Years since quittin.1 Smokeless tobacco: Never Vaping Use Vaping status: Never Used Substance Use Topics Alcohol use: Yes Alcohol/week: 2.0 - 3.0 standard drinks of alcohol Types: 2 - 3 Cans of beer per week Comment: 1-2 drinks/2-3x a week Drug use: Never Review of Systems Constitutional: Negative for activity change, appetite change, fatigue and unexpected weight change. HENT: Negative for ear pain, hearing loss, postnasal drip, sinus pain, trouble swallowing and voicechange. Eyes: Negative for photophobia, pain and visual disturbance. Respiratory: Negative for cough, shortness of breath and wheezing. Cardiovascular: Negative for chest pain, palpitations and leg swelling. Gastrointestinal: Negative for abdominal distention, abdominal pain, blood in stool and nausea. Genitourinary: Negative for difficulty urinating, dysuria and hematuria. Musculoskeletal: Positive for arthralgias and back pain. Negative for gait problem and joint swelling. 04/2024- she has been seeing Rheum/Dr Tejada. He recently started her on plaquenil Skin: Negative for rash and wound. Neurological: Negative for dizziness, tremors, speech difficulty, weakness, numbness and headaches. Psychiatric/Behavioral: Negative for confusion, decreased concentration, hallucinations and sleep disturbance. Endocrine: Negative for polydipsia, polyphagia and polyuria. Allergic/Immunologic: Negative for immunocompromised state. Objective Vital signs: BP 114/70 Pulse 78 Wt 139 lb 6.4 oz LMP (LMP Unknown) SpO2 99% BMI 27.22 kg/m Physical Exam Constitutional: General: She is not [...] sounds. No wheezing or rhonchi. Musculoskeletal: General: Swelling and deformity present. Normal range of motion. Cervical back: Normal range of motion. Comments: Some tenderness of PIP joints Skin: General: Skin is warm and dry. Findings: No rash. Neurological: General: No focal deficit present. Mental Status: She is alert and oriented to person, place, and time. Motor: No weakness. Gait: Gait normal. Psychiatric: Mood and Affect: Mood normal. Thought Content: Thought content normal. Judgment: Judgment normal. Assessment/Plan Problem List Items Addressed This Visit Inflammatory arthritis Overview She has been seeing Rheum/Dr Tejada. She was started on plaquenil 03/2024 Current Assessment & Plan She reports she has an upcoming appt with Ophthal for an eye exam for a baseline exam. She reports she will have labs (per Dr Tejada) in ~2 months Class 1 obesity Overview 11/2022- she started phentermine (weight at that time was 165#/BMI=32.22). 04/24/2023- weight down to 146# 05/13/2024 BV=746.4# Current Assessment & Plan She has done well on the phentermine. She tried to stop this, but has had ~5# increase. She has been off for ~3 weeks. Will resume, but I did advise she may be able to decrease to 1/2 tab. She will see how she is doingback on the whole tab and then consider decreasing dose. I also advised her that we could change to 8 mg tabs that she could take up to 3 times a day, but will not pursue this change at this time. Exercise-induced asthma ([facility]) Current Assessment & Plan She reports she had to use albuterol when she had recent bronchitis, but not a routine basis. Will monitor frequency of use and consider change to prn Airsupra if she finds herself needing a rescue inhaler Gastroesophageal reflux disease without esophagitis Overview Prescribed pantoprazole Current Assessment & Plan -Pt advised to avoid food triggers and follow conservative management measures (including avoiding tight fitting pants, weight management, and elevating HOB as indicated) to keep GERD symptoms under control. -Take medications as recommended and monitor for alarm symptoms . Postmenopausal Depression, major, in remission (HCC) ([facility]) Overview Prescribed citalopram Current Assessment & Plan She reports good sx control at this time. Will continue current Rx (Celexa 30 mg) daily and monitorsx Hormone replacement therapy Overview Prescribed estradiol 0.5 mg daily by [facility]/Dr Disla Other Visit Diagnoses Encounter for preventative adult health care examination - Primary -Reviewed age appropriate screenings, as well as recommended immunizations and lab monitoring. Health goals established. Patient Plan of care summary available. Encouraged healthy lifestyle choices regarding food choices and regular exercise. Pt expressed understanding of these recommendations. Medi cations have been reviewed and pt understands importance of taking medications as prescribed. -No indication for me to do labs (ie lipids) at this time. Last in 2022: LDL=91 BMI 32.0-32.9,adult Relevant Medications phentermine (Adipex-P) 37.5 MG tablet Health Maintenance Topic Date Due Mammogram 02/09/2025 Colorectal Cancer Screening 12/29/2030 Influenza Vaccine Completed Immunization History Administered Date(s) Administered Covid-19, Subunit, Rs-nanoparticle, Adjuvanted, Pf, 5 Mcg/0.5 Ml 12/08/2023 Influenza, Injectable, MDCK, preservative free 02/09/2018, 12/08/2023 Influenza, injectable, MDCK, preservative free, quadrivalent 12/25/2022 Influenza, injectable, MDCK, quadrivalent 12/31/2021 Influenza, injectable, quadrivalent, preservative free 01/18/2015, 01/10/2020, 12/13/2020 Influenza, seasonal, injectable, preservative free 11/22/2018 Influenza, seasonal, intradermal, preservative free 01/08/2016, 04/15/2017 Novel [id number], preservative-free 01/28/2009 Pfizer Lorenzo Cap SARS-CoV-2 Vaccination 08/15/2021 Pfizer Purple Cap SARS-CoV-2 Vaccination 06/09/2020, 06/29/2020, 02/21/2021 RSV, recombinant, protein subunit RSVpreF, adjuvant reconstitu, 120mcg/0.5mL, PF (Arexvy) 12/25/2022 SARS-COV-2 (COVID-19) vaccine, mRNA, spike protein, LNP, bivalent, preservative free, 30 mcg/0.3 mLdose, nighat-sucrose formulation 12/31/2021 Tdap 06/29/2015 Zoster, Recombinant 02/07/2021, 05/28/2021 I spent a total of 44 minutes on the date of the service which included: time spent preparing to see the patient by reviewing last office note and chronic conditions, talking to the patient/documenting in the chart, examining the patient, placing orders in the chart and documenting in the chart after the visit. Protocols reviewed and updated. A collaborative plan of care has been created for pt regarding specific health concerns. Any barriers to care have been identified and addressed. Any part of this document that has been added/copied from other documents has been reviewed for accuracy and updated as appropriate at the time of the patient encounter. -Follow up in about 3 months (around 08/10/2024) for appt for medication monitoring. Alice Polo D.O. Board Certified Compliance Intern documented in this encounterCox [id number] History of Present illness Narrative* Adry Alfonso, CRISTEL - 02/16/2024 9:00 AM EST Images from the original note were not included. Subjective Patient ID: Giselle Georges (: 1960) is a 63 y.o. female who presents for Cough (Bump on fingers). HPI History of Present Illness The patient is a 63-year-old female who presents for evaluation of multiple medical concerns. She reports an increase in size and soreness of a previously existing bump on her R middle finger, along with the development of additional painful bumps. These bumps are described as fluid-filled, similar to a jelly-like substance. She recalls having a similar bump on her knee years ago, which eventually resolved. She also mentions changes in her nails. She attempted to drain the bump herself with a needle, but was unsuccessful. The bumps are red and occasionally become infected. She has a family history of psoriatic arthritis and osteoarthritis in her mother. She has been experiencing a persistent cough for the past 2 weeks, which she describes as barky at times. She also reports sinus pressure and shortness of breath. She produces thick green sputum whenshe coughs. She has been sleeping excessively and has been using NyQuil to manage her symptoms. Sheuses a CPAP machine for sleep, but it does not seem to alleviate her symptoms. She reports no fevers or chills. She has a history of frequent bronchitis when she was a smoker. Current Outpatient Medications Medication Instructions albuterol HFA (Ventolin HFA) 90 mcg/act inhaler 2 puffs, Inhalation, Every 6 hours PRN baclofen (LIORESAL) 5 mg, Oral, Nightly PRN citalopram (CELEXA) 20 mg, Oral, Daily citalopram (CELEXA) 10 mg, Oral, Daily, With 20mg to equal 30mg daily clobetasol (Temovate) 0.05 % cream Topical, 2 times daily doxycycline (VIBRAMYCIN) 100 mg, Oral, 2 times daily, Take with at least 8 ounces (large glass) of water, do not lie down for 30 minutes after estradiol (ESTRACE) 0.5 mg, Oral, Daily fluconazole (DIFLUCAN) 150 mg, Oral, See admin instructions, Take one tab now. Repeat in 72 hours if symptoms persist. fluticasone (Flonase) 50 MCG/ACT nasal spray 1 spray, Each Nostril, Daily pantoprazole (PROTONIX) 40 mg, Oral, Daily before breakfast phentermine (ADIPEX-P) 37.5 mg, Oral, Daily before breakfast Allergies Allergen Reactions Sulfa Antibiotics Hives and Rash Other Reaction(s): hives Patient Active Problem List Diagnosis Class 1 obesity Exercise-induced asthma (CMS/HCC) Arthritis, lumbar spine Gastroesophageal reflux disease without esophagitis Postmenopausal Depression, major, in remission (HCC) (CMS/HCC) Hormone replacement therapy Review of Systems Constitutional: Positive for fatigue. Negative for chills and fever. HENT: Positive for congestion, postnasal drip and sinus pressure. Negative for sore throat and trouble swallowing. Respiratory: Positive for cough, shortness of breath and wheezing. Cardiovascular: Negative for chest pain, palpitations and leg swelling. Gastrointestinal: Negative for diarrhea, nausea and vomiting. Skin: Bumps on fingers Neurological: Negative for dizziness, light-headedness and headaches. Objective Vital signs: BP 128/78 (BP Location: Left arm, Patient Position: Sitting) Pulse 80 Resp 16 Ht5' Wt 135 lb LMP (LMP Unknown) SpO2 99% BMI 26.37 kg/m Physical Exam Assessment/Plan Assessment & Plan 1. Finger cyst. A clear jelly-like substance was drained from the cyst on her finger with a sterile needle. A woundculture will be performed and sent out today. A referral to Rheumatology will be made. She has beenseen in the past for what appears to mainly be [place] nodes however the one on her middle finger today appeared more like a cyst. I advised the DOXY will cover infection. I will call her with woundculture results. 2. Cough. A chest x-ray will be ordered to verify if it is pneumonia. Doxycycline will be prescribed, to be taken twice daily for 10 days. Diflucan will also be prescribed. An albuterol inhaler will be provided, with instructions to take 2 puffs every 6 hours as needed. She is advised to swish water around and spit it out after using the inhaler. Advised we will call her with CXR results. Patient to followup if symptoms are not improving. Problem List Items Addressed This Visit None Visit Diagnoses Acute cough - Primary Relevant Orders XR chest 2 views Side effect of medication Relevant Medications fluconazole (Diflucan) 150 MG tablet Lower respiratory tract infection Relevant Medications doxycycline (Vibramycin) 100 MG capsule Shortness of breath Relevant Medications albuterol HFA (Ventolin HFA) 90 mcg/act inhaler Sebaceous cyst of finger Relevant Orders SUPERFICIAL WOUND (HTRX) [place] nodes Relevant Orders Ambulatory referral to Rheumatology Family history of rheumatoid arthritis Relevant Orders Ambulatory referral to Rheumatology Health Maintenance Topic Date Due Mammogram 02/09/2025 Colorectal Cancer Screening 12/29/2030 Influenza Vaccine Completed Immunization History Administered Date(s) Administered Covid-19, Subunit, Rs-nanoparticle, Adjuvanted, Pf, 5 Mcg/0.5 Ml 12/08/2023 Influenza, Injectable, MDCK, preservative free 02/09/2018 Influenza, injectable, MDCK, preservative free, quadrivalent 12/25/2022 Influenza, injectable, MDCK, quadrivalent 12/31/2021 Influenza, injectable, quadrivalent, preservative free 01/18/2015, 01/10/2020, 12/13/2020 Influenza, seasonal, injectable, preservative free 11/22/2018 Influenza, seasonal, intradermal, preservative free 01/08/2016, 04/15/2017 Novel [id number], preservative-free 01/28/2009 Pfizer Lorenzo Cap SARS-CoV-2 Vaccination 08/15/2021 Pfizer Purple Cap SARS-CoV-2 Vaccination 06/09/2020, 06/29/2020, 02/21/2021 RSV, recombinant, protein subunit RSVpreF, adjuvant reconstitu, 120mcg/0.5mL, PF (Arexvy) 12/25/2022 SARS-COV-2 (COVID-19) vaccine, mRNA, spike protein, LNP, bivalent, preservative free, 30 mcg/0.3 mLdose, nighat-sucrose formulation 12/31/2021 Tdap 06/29/2015 Zoster, Recombinant [...] time of the patient encounter. -Follow up for Next scheduled follow-up. ,Adry Alfonso NP documented in this encounterCox [id number] History of Present illness Narrative* Vilma Bruno LPN - 02/09/2024 12:15 PM EST Images from the original note were not included. Alma Disla, Obstetrics and Gynecology Giselle Georges 1960 02/09/24 [id number] Yearly Wellness Exam Chief Complaint Patient presents with Gynecologic Exam Pt presents for yearly. Denies any breast/bowel/ bladder concerns or problems. Visit Vitals BP 122/72 Wt 135 lb LMP (LMP Unknown) BMI 26.37 kg/m OB Status Hysterectomy Smoking Status Former BSA 1.61 m History of Present Illness Current Outpatient Medications Medication Sig Dispense Refill citalopram (CeleXA) 10 MG tablet Take 10 mg by mouth Daily citalopram (CeleXA) 20 MG tablet Take 20 mg by mouth Daily baclofen (Lioresal) 5 MG tablet Take 5 mg by mouth as needed at bedtime clobetasol (Temovate) 0.05 % cream Apply topically 2 (two) times a day. estradiol (Estrace) 0.5 MG tablet Take 1 tablet (0.5 mg) by mouth in the morning. 90 tablet 3 fluticasone (Flonase) 50 MCG/ACT nasal spray Administer 1 spray into each nostril in the morning. pantoprazole (ProtoNix) 40 MG EC tablet Take 40 mg by mouth in the morning. Take before meals. phentermine (Adipex-P) 37.5 MG tablet Take 1 tablet (37.5 mg) by mouth in the morning. Take before meals. 30 tablet 2 No current facility-administered medications for this visit. Allergies Allergen Reactions Sulfa Antibiotics Hives and Rash Other Reaction(s): hives Past Medical History: Diagnosis Date Arthritis of [...] [address] Méndez Obesity (BMI 30.0-34.9) Obstructive sleep apnea 07/2022 PVC (premature ventricular contraction) History of PVCs Past Surgical History: Procedure Laterality Date AMB EPIDURAL STEROID INJECTION 04/28/2020 Lumbar cortisone injection per Dr. Corea (Pain management) AMB EPIDURAL STEROID INJECTION Bilateral 04/16/2022 Cortisone Injection, Bilateral SI joints; Done per Dr. Corea SECTION, LOW TRANSVERSE x3 CHOLECYSTECTOMY 2009 Dr. Lee - Date approx. per pt. COLONOSCOPY 12/29/2020 Normal COLONOSCOPY 09/03/2022 Fer EGD 10/31/2015 EGD/Chamberino done by Dr. Ortiz (stenosis of upper [...] LIGATION Dr. Ba WISDOM TOOTH EXTRACTION 1980 [place] teeth impacted OB History Para Term AB Living 3 3 3 SAB IAB Ectopic Multiple Live Births 3 # Outcome Date GA Lbr Indio/2nd Weight Sex Type Anes PTL Lv 3 Para 2 Para 1 Para Obstetric Comments Pap 05/21/21- Neg, HPV Neg Mammogram 12/23/22- Neg Colonoscopy 09/03/22- Ditty ROS General: Denies fevers/chills Eyes: Denies vision changes ENT: Denies neck stiffness, neck mass Endocrine: Denies polydipsia and polyuria Respiratory: Denies shortness of breath Cardiovascular: Denies chest pain and palpitations Gastrointestinal: Denies changes in bowel habits, blood in stool, constipation and diarrhea. Hematology: Denies easy bruising. Women Only: Denies breast masses, skin changes, nipple discharge, abnormal bleeding, pelvic pain and dyspareunia Genitourinary: Denies dysuria, pelvic pain and nocturia Skin: Denies rashes/lesions Neurologic: Denies headaches, dizziness, syncope Psychiatric: Denies hallucinations, suicidal ideas EXAM GENERAL EXAMINATION: Alert, oriented, well developed, well nourished. HEAD: Normocephalic, atraumatic. EYES: PAZ, sclera anicteric. EARS: No obvious hearing deficit. NECK/THYROID: Neck supple no cervical lymphadenopathy no thyromegaly. LYMPH NODES: No axillary, supraclavicular or inguinal adenopathy. SKIN: Warm and dry. No rashes HEART: Regular rate and rhythm. No murmur LUNGS: Clear to auscultation bilaterally. CHEST: Axillary nodes grossly normal. BREASTS: No dominant masses palpable bilaterally, no skin changes, nipple discharge, supra-clavicular or axillary adenopathy ABDOMEN: Soft, nontender, nondistended, no hernia or masses palpable. BACK: No obvious scoliosis/kyphosis. 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 EXTREMITIES No edema. NEUROLOGIC: Alert and oriented. PSYCH: Cooperative with exam. ICD-10-CM 1. Encounter for gynecological examination with abnormal finding Z01.411 2. Encounter for screening mammogram for malignant neoplasm of breast Z12.31 Bilateral screening mammogram with tomosynthesis 3. Abnormal weight gain R63.5 Advised pt to perform monthly self breast exams. Encouraged calcium and Vitamin D intake. Doing well on Celexa 30mg, medication refilled. Mammogram due, order sent. Colonoscopy up to date. Doing wellon Temovate and Estradiol tablets, will refill for 1 year. She will return in 1 year for annual exam. Entered by Vilma Bruno LPN acting as scribe for Dr. Alma Disla. Signature: Vilma Bruno LPN The documentation recorded by the scribe accurately reflects the service(s) I personally performed and the decisions I made. Signature: Alma Disla DO Assessment & Plan documented in this encounterCox [id number] Telephone encounter Note* Telephone Encounter - Alma Disla DO - 12/18/2023 10:03 AM EDT Patient called and is struggling with a traumatic event that occurred in her family. She is struggling with significant anxiety. I have recommended she increase her Celexa to 40 mg daily and I am going to send over some Xanax to help her through the 1st several days. She understands this can be addicting and we will be very careful and use it only as directed. I did review OARRS and found nothingof significance. Cox [id number] Miscellaneous Notes* Telephone Encounter - Alma Disla DO - 12/18/2023 10:03 AM EDT Patient called and is struggling with a traumatic event that occurred in her family. She is struggling with significant anxiety. I have recommended she increase her Celexa to 40 mg daily and I am going to send over some Xanax to help her through the 1st several days. She understands this can be addicting and we will be very careful and use it only as directed. I did review OARRS and found nothingof significance. documented in this encounterCox [id number] History of Present illness Narrative* Alma Disla DO - 11/18/2023 12:00 PM EDT Images from the original note were not included. Subjective Giselle Georges is a 63 y.o. female Chief Complaint Patient presents with Weight Management Pt is taking adipex. Current Outpatient Medications: baclofen (Lioresal) 5 MG tablet, Take 5 mg by mouth as needed at bedtime, Disp: , Rfl: citalopram (CeleXA) 20 MG tablet, Take 1 tablet (20 mg) by mouth in the morning., Disp: 90 tablet, Rfl: 3 clobetasol (Temovate) 0.05 % cream, Apply topically 2 (two) times a day., Disp: , Rfl: estradiol (Estrace) 0.5 MG tablet, Take 1 tablet (0.5 mg) by mouth in the morning., Disp: 90 tablet, Rfl: 3 fluconazole (Diflucan) 150 MG tablet, Take 1 tablet (150 mg) by mouth 1 (one) time for 1 dose Repeat in 7 days if symptoms persist., Disp: 2 tablet, Rfl: 0 fluticasone (Flonase) 50 MCG/ACT nasal spray, Administer 1 spray into each nostril in the morning.,Disp: , Rfl: pantoprazole (ProtoNix) 40 MG EC tablet, Take 40 mg by mouth in the morning. Take before meals., Disp: , Rfl: phentermine (Adipex-P) 37.5 MG tablet, Take 1 tablet (37.5 mg) by mouth in the morning. Take beforemeals., Disp: 30 tablet, Rfl: 2 Past Medical History: Diagnosis Date Arthritis of [...] [address] Méndez Obesity (BMI 30.0-34.9) Obstructive sleep apnea 07/2022 PVC (premature ventricular contraction) History of PVCs Past Surgical History: Procedure Laterality Date AMB EPIDURAL STEROID INJECTION 04/28/2020 Lumbar cortisone injection per Dr. Corea (Pain management) AMB EPIDURAL STEROID INJECTION Bilateral 04/16/2022 Cortisone Injection, Bilateral SI joints; Done per Dr. Corea SECTION, LOW TRANSVERSE x3 CHOLECYSTECTOMY 2009 Dr. Lee - Date approx. per pt. COLONOSCOPY 12/29/2020 Normal EGD 10/31/2015 EGD/Chamberino done by Dr. Ortiz (stenosis of upper [...] LIGATION Dr. Ba WISDOM TOOTH EXTRACTION 1981 [place] teeth impacted Family History Problem Relation Name Age of Onset Depression Mother Michela Garrett,Ken Garrett(father), Ronni Garrett (b Hyperthyroidism Mother Michela Garrett,Ken Garrett(father), Ronni Garrett (b Osteoporosis Mother Michela Garrett,Ken Garrett(father), Ronni Garrett (b Osteoarthritis Mother Michela Garrett,Ken Garrett(father), Ronni Garrett (b Stroke Mother Michela Garrett,Ken Garrett(father), Ronni Garrett (b Alcohol abuse Father KEN GARRETT Other (brain tumor) Father KEN GARRETT benign brain tumor with shunt due to hydrocephalus Asthma Father KEN TAMI Heart failure Brother Ronnivega Cardenastt CHF Coronary artery disease Brother Ronni Garrett 48 Atrial fibrillation Brother Ronni Garrett 48 Depression Brother Ronnivega Cardenastt Severe Depression Heart attack Paternal Grandfather Acute AR No Known Problems Daughter Healthy Ulcerative colitis Son Melanoma Neg Hx OB History Para Term AB Living 3 3 0 0 0 3 SAB IAB Ectopic Multiple Live Births 0 0 0 0 3 # Outcome Date GA Lbr Indio/2nd Weight Sex Type Anes PTL Lv 3 Para 2 Para 1 Para Obstetric Comments Pap 05/21/21- Neg, HPV Neg Mammogram 12/23/22- Neg Colonoscopy 12-29-2020 Neg. Review of Systems All negative unless documented in treatment Objective Visit Vitals BP 110/72 Wt 135 lb LMP (LMP Unknown) BMI 26.37 kg/m OB Status Hysterectomy Smoking Status Former BSA 1.61 m Allergies Allergen Reactions Sulfa Antibiotics Hives and Rash Other Reaction(s): hives Physical Exam Constitutional: Appearance: Normal appearance. HENT: Head: Normocephalic and atraumatic. Eyes: General: No scleral icterus. Cardiovascular: Rate and Rhythm: Normal rate and regular rhythm. Heart sounds: Normal heart sounds. No murmur heard. Pulmonary: Effort: Pulmonary effort is normal. Breath sounds: Normal breath sounds. No wheezing. Musculoskeletal: Right lower leg: No edema. Left lower leg: No edema. Neurological: General: No focal deficit present. Mental Status: She is alert and oriented to person, place, and time. Skin: General: Skin is warm and dry. Findings: No rash. Psychiatric: Mood and Affect: Mood normal. Behavior: Behavior normal. Vitals and nursing note reviewed. Procedures ICD-10-CM 1. Vaginal itching N89.8 fluconazole (Diflucan) 150 MG tablet 2. Abnormal weight gain R63.5 3. Sleep apnea, unspecified type G47.30 4. 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 Denies significant side-effects. 3lb. weight loss this month. Total loss 30lbs. In 11 months. She has achieved her goal weight. Will plan to continue on medication for weight maintenance. Advised calorie restriction, avoiding simple carbohydrates and making healthy lifestyle changes. Keep food diary or use diet ijeoma. Try for at least 30 minutes of aerobic exercise 3-4x/wk. OARRS reviewed, no concerns. Follow up in 3m. Entered by Vilma Bruno LPN acting as scribe for Dr. Alma Disla. Signature: Vilma Bruno LPN The documentation recorded by the scribe accurately reflects the service(s) I personally performed and the decisions I made. Signature: Alma Disla DO documented in this encounterCox [id number] History of Present illness Narrative* Alma Disla DO - 05/08/2023 2:30 PM EST Images from the original note were not [...] 1 spray into each nostril in the morning.,Disp: , Rfl: pantoprazole (ProtoNix) 40 MG EC tablet, Take 40 mg by mouth in the morning and 40 mg before bedtime., Disp: , Rfl: phentermine (Adipex-P) 37.5 MG tablet, Take 1 tablet (37.5 mg) by mouth in the morning. Take beforemeals., Disp: 30 tablet, Rfl: 0 Past Medical [...] per pt. COLONOSCOPY 12/29/2020 Normal EGD 10/31/2015 EGD/Chamber[place] done by Dr. Ortiz (stenosis of upper [...] LIGATION Dr. Ba WISDOM TOOTH EXTRACTION 1981 [place] teeth impacted Family History Problem Relation Name Age of Onset Depression Mother Michela Garrett,Ken Garrett(father), Ronni Garrett (b Hyperthyroidism Mother Michela GarrettKen Garrett(father), Ronni Garrett (b Osteoporosis Mother Michela GarrettKen Garrett(father), Ronni Garrett (b Osteoarthritis Mother Michela GarrettKen Garrett(father), Ronni Garrett (b Stroke Mother Michela GarrettKen Garrett(father), Ronni Garrett (b Alcohol abuse Father KEN GARRETT Other (brain tumor) Father KEN GARRETT benign brain tumor with shunt due to hydrocephalus Asthma Father KEN GARRETT Heart failure Brother Ronni Garrett CHF Coronary artery disease Brother Ronni Garrett 48 Atrial fibrillation Brother Ronni Garrett 48 Depression Brother Ronni Garrett Severe Depression Heart attack Paternal Grandfather Acute AR No Known Problems Daughter Healthy Ulcerative colitis [...] of yeast vaginitis-Rx diflucan. documented in this encounterCox [id number] History of Present illness Narrative* Alice Polo DO - 04/27/2023 6:53 PM ESTAssociated Problem(s): Gastroesophageal reflux disease without esophagitis -Pt [...] recommended and monitor for alarm symptoms . * Alice Polo DO - 04/27/2023 6:52 PM ESTAssociated Problem(s): Depression, major, in remission (HCC) (CMS/HCC) -Pt is doing well at this time on current dose of celexa. Based on review of patient's medications and current medical status; continuation of medications most appropriate. Compliance with medications and/or management recommendations encouraged. Monitor * Alice Polo DO - 04/27/2023 6:51 PM ESTAssociated Problem(s): Class 1 obesity -She has been making lifestyle changes and has been able to lose weight and BMI is now <30. She will continue to work on these changes. -Discussed being able to continue this medication with possibility of reducing the dose down the road for maintenance. * Alice Polo DO - 04/24/2023 10:00 AM EST Images from the original note were not [...] postnasal drip, sinus pain, trouble swallowing and voicechange. Eyes: Negative for photophobia, pain and visual [...] . Postmenopausal Depression, major, in remission (HCC) (CMS/HCC) Overview Prescribed citalopram Current Assessment & Plan -Pt is doing well at this time on current dose of celexa. Based on review of patient's medications and current medical status; continuation of medications most appropriate. Compliance with medications and/or management recommendations encouraged. Monitor Hormone replacement therapy Overview Prescribed estradiol 0.5 mg daily by [facility]/Dr Disla Other Visit Diagnoses Encounter for preventative adult health care examination - Primary -Reviewed age appropriate screenings, as well as recommended immunizations and lab monitoring. Health goals established. Patient Plan of care summary available. Encouraged healthy lifestyle choices regarding food choices and regular exercise. Pt expressed understanding of these recommendations. Medi cations have been reviewed and pt understands importance [...] protein, LNP, bivalent, preservative free, 30 mcg/0.3 mLdose, nighat-sucrose formulation 12/31/2021 Tdap 06/29/2015 Zoster, Recombinant [...] Annual Physical. Alice Polo D.O. Board Certified Compliance Intern documented in this encounterCox [id number] Evaluation note* Encounter Date Diagnosis Assessment Notes Treatment Notes Treatment Clinical Notes Nov, GERD without esophagitis (ICD-10 - K21.9) PATIENT DOING WELL WITH THE PANTOPRAZOLE BID DOSING. SHE REPORTS MAYBE ONCE A WEEK WITH A FLARE OF SYMPTOMS. PATIENT CAN USE PEPCID OTC OR TUMS. [employer] Other 03-09-2023 NoteCONSULTATION CONSULTATION DATE: 05/30/2022 HISTORY [...] for re-evaluation. Patient agrees with this plan.[facility] [facility] [id number] NotePROCEDURE: XR HIP LT 2 3V WO [...] authenticated by: GENESIS BELLO Date: 2022-05-02 14:36[facility] [id number] NoteCONSULTATION CONSULTATION DATE: 05/02/2022 HISTORY OF PRESENT [...] completed 10 treatments of physical therapy in [place]. The patient does state, at the end [...] followed up in the office post procedure.[facility] [id number] NoteCONSULTATION CONSULTATION DATE: 02/07/2022 HISTORY OF PRESENT [...] review her thoracic x-ray at that time.[facility] [id number] NoteCONSULTATION CONSULTATION DATE: 11/15/2021 This is a [...] indicated. The patient does agree to this.[facility] [id number] Evaluation note* Encounter Date Diagnosis Assessment Notes Treatment Notes Treatment Clinical Notes Sep, Irritable bowel syndrome with both constipation and diarrhea (ICD-10 - K58.2) Sep, GERD (gastroesophageal reflux disease) (ICD-10 - K21.9) Sep, Bloating (ICD-10 - R14.0) [facility] Other 06-30-2022 NoteCONSULTATION CONSULTATION DATE: 09/20/2021 This [...] She has been missing days at the [employer] [facility] recently due to her pain. She describes [...] be followed up it the clinic post-procedure. [facility] Signed and Approved by: JONI MAHMOOD . 09/27/2021 16:26:00[facility]12-06-2021 Evaluation note* Encounter Date Diagnosis Assessment Notes Treatment Notes Treatment Clinical Notes Feb, GERD (gastroesophageal reflux disease) (ICD-10 - K21.9) [facility] Other 09-29-2021 Evaluation note* Encounter Date Diagnosis Assessment Notes Treatment Notes Treatment Clinical Notes Nov, GERD (gastroesophage al reflux disease) (ICD-10 - K21.9) GERD home care material was printed EGD START CARAFATE 1 GRAM TID Nov, Irritable bowel synd john with both constipation and diarrhea (ICD-10 - K58.2) Nov, Pharyngoesophageal dysphagia (ICD-10 - R13.14) [facility] Other Evaluation noteNo InformationNort Player X Other Evaluation noteNo assessment information available [facility] Work Phone: Evaluation note* Diagnosis Encounter for preventative adult health care examination- Primary Arthritis, lumbar spine Depression, major, in remission (HCC) ([facility]) Gastroesophageal reflux disease without esophagitis Esophageal reflux Postmenopausal Asymptomatic postmenopausal status (age-related) (natural) Hormone replacement therapy Class 1 obesity BMI 29.0-29.9,adult documented in this encounter [facility] HealthcareEvaluation note* Diagnosis Body mass index (BMI) 28.0-28.9, adult Abnormal weight gain Yeast infection BMI 29.0-29.9,adult documented in this encounter [facility] HealthcareEvaluation note* Diagnosis Onset Date Resolution Status GERD (gastroesophageal reflux disease) acute [facility] Work Phone: Evaluation note* Diagnosis Onset Date Resolution Status GERD (gastroesophageal reflux disease) acute BMI 27.0-27.9,adult acute Chronic intermittent hypoxia with obstructive sleep apnea acute GERD (gastroesophageal reflux disease) acute Intolerance to BiPAP/CPAP ac maura Obstructive sleep apnea acut e [facility] Work Phone: Evaluation note* Diagnosis Encounter for preventative adult health care examination- Primary Arthritis, lumbar spine Depression, major, in remission (HCC) ([facility]) Gastroesophageal reflux disease without esophagitis Esophageal reflux Postmenopausal Asymptomatic postmenopausal status (age-related) (natural) Hormone replacement therapy Class 1 obesity Encounter for gynecological examination with abnormal finding- Primary Encounter for screening mammogram for malignant neoplasm of breast Abnormal weight gain Postmenopausal HRT (hormone replacement therapy) Need for prophylactic hormone replacement therapy (postmenopausal) Lichen sclerosus Circumscribed scleroderma Anxiety, generalized (CMS/HCC) documented [facility] encounter [facility] Diagnosis Encounter for preventative adult health care examination- Primary Arthritis, lumbar spine Depression, major, in remission (HCC) (CMS/HCC) Gastroesophageal reflux disease without esophagitis Esophageal reflux Postmenopausal Asymptomatic postmenopausal status (age-related) (natural) Hormone replacement therapy Class 1 obesity Acute cough- Primary Side effect of medication Lower respiratory tract infection Other diseases of respiratory system, not elsewhere classified Shortness of breath Sebaceous cyst of finger [place] nodes Family history of rheumatoid arthritis Family history of arthritis documented in this encounter [facility]* Diagnosis Abnormal weight gain- Primary Vaginal itching Pruritus of genital organs Sleep apnea, unspecified type Primary osteoarthritis of other site BMI 26.0-26.9,adult documented in this encounter [facility]* Diagnosis Anxiety as acute reaction to exceptional stress (CMS/HCC)- Primary Mild depression (CMS/HCC) Depressive disorder, not elsewhere classified documented in this encounter [facility]* Diagnosis Encounter for preventative adult health care examination- Primary Arthritis, lumbar spine Depression, major, in remission (HCC) (CMS/HCC) Gastroesophageal reflux disease without esophagitis Esophageal reflux Postmenopausal Asymptomatic postmenopausal status (age-related) (natural) Hormone replacement therapy Class 1 obesity Encounter for preventative adult health care examination- Primary Inflammatory arthritis Unspecified inflammatory polyarthropathy Class 1 obesity Exercise-induced asthma (CMS/HCC) Exercise induced bronchospasm Depression, major, in remission (HCC) (CMS/HCC) Postmenopausal Asymptomatic postmenopausal status (age-related) (natural) BMI 32.0-32.9,adult Hormone replacement therapy Gastroesophageal reflux disease without esophagitis Esophageal reflux documented in this encounter [facility]* Diagnosis Encounter for preventative adult health care examination- Primary Arthritis, lumbar spine Depression, major, in remission (HCC) (CMS/HCC) Gastroesophageal reflux disease without esophagitis Esophageal reflux Postmenopausal Asymptomatic postmenopausal status (age-related) (natural) Hormone replacement therapy Class 1 obesity Encounter for preventative adult health care examination- Primary Inflammatory arthritis Unspecified inflammatory polyarthropathy Class 1 obesity Exercise-induced asthma Exercise induced bronchospasm Depression, major, in remission (HCC) (CMS/HCC) Postmenopausal Asymptomatic postmenopausal status (age-related) (natural) BMI 32.0-32.9,adult Hormone replacement therapy Gastroesophageal reflux disease without esophagitis Esophageal reflux Metatarsal deformity, right- Primary Santana neuroma, right Pain in right toe(s) documented in this encounter [facility] Healthcare[facility] general Narrative - Reported* Type Description Date Medical History Gastroesophageal Reflux Disease Medical History Anxiety/Depression Medical History seasonal asthma Surgical History Caesarean Section X 3 Surgical History Tonsillectomy/Adenoidectomy Surgical History Laparoscopy Surgical History Hysteroscopy/Endometrial Ablati on Surgical History Laparoscopy Cholecystectomy Surgical History [facility] tenton interposition Arthro plasty 2019 Hospitalization History See Above [facility] Other History general Narrative - ReportedNoAvinger Other [employer] general Narrative - Reported* Type Description Date [...] History ablasion-LUMBAR NERVE Hospitalization History See Above [facility] Other Hospital Discharge instructions Additional Instructions Follow up with your primary care doctor Return to the ED If you develop worsening symptoms or concerns[facility] Work Phone: Chief Complaint and [...] disease) Intolerance to BiPAP/CPAP Obstructive sleep apnea Chief Complaint Admit Date OA/Meds June 28, 2024 11:3 2am Chief Complaint Admit Date OA/Meds June 28, 2024 11:3 2am ELIA/ ANNUAL July 26, 2024 8:56am Chief Complaint Admit Date OA/Meds June 28, 2024 11:3 2am ELIA/ ANNUAL July 26, 2024 8:56am 1 year f/u July 26, 2024 1:52pm Reason for Visit Admit Date BMI 27.0-27.9,adult July 26, 2024 8:56am Chronic intermittent hypoxia with obstru ctive sleep apnea July 26, 2024 8:56am GERD (gastroesophageal reflux disease) M 2024 8:56am Intolerance to BiPAP/CPAP July 26, 2024 8:56am Obstructive sleep apnea July 26, 2024 8: 56am GERD (gastroesophageal reflux disease) 2024 1:52pm Family History No Family History Records Found Relationship Condition Age at Onset Recorded Date/T manish Not Specified Atrial fibrillation Unknown father Heart disease Unknown Relationship Condition Age at Onset Recorded Date/T manish Not Specified Atrial fibrillation Unknown father Heart disease Unknown natural son Ulcerative colitis Unknown Relationship Condition Age at Onset Recorded Date/T manish mother Atrial fibrillation Unknown father Heart disease Unknown son Ulcerative colitis Unknown Advance Directives No [...] Pt did not want an exam today. Reason Comments Gynecologic Exam Pt presents for year ly. Denies any breast/bowel/ bladder concerns or problems. Reason Comments Cough Bump on fingers Reason Comments Weight Management Pt is taking adipex. Reason Comments Foot Pain Right foot pain Care Teams (unrecognized sec tion and content) Team Status: Inactive Member Role Status Dates Alice Polo , DO Primary Care Provider Active Ken Ortiz DO Attending Provider Active Team Status: Inactive [...] Active Edison Monroe MD Attending Provider Active Cpr Instructor Relationship Specialty Start Date End Date MarkEliotSusyra Baca DO [address] [place] [address] PCP - General Internal Medicine 07/30/22 Cpr Instructor Relationship Specialty Start Date End Date MarkEliotSusyra Baca, DO [address] [place] [address] PCP - General Internal Medicine 07/30/22 Team Status: Inactive Member Role Status Dates Alice LunaEmily , DO Primary Care Provider Active Start: [...] August 27, 2023 End: August 27, 2023 Cpr Instructor Relationship Specialty Start Date End Date Alice Polo, DO [address] [place] [address] PCP - General Internal Medicine 07/30/22 Alice Polo DO [address] [place] [address] PCP - [facility] 12/23/23 Cpr Instructor Relationship Specialty Start Date End Date Alice Polo DO [address] [place] [address] PCP - General Internal Medicine 07/30/22 Alice Polo DO [address] [place] [address] PCP - [facility] 12/23/23 Cpr Instructor Relationship Specialty Start Date End Date Alice Polo DO [address] [place] [address] PCP - General Internal Medicine 07/30/22 Cpr Instructor Relationship Specialty Start Date End Date Alice Polo DO [address] [place] [address] PCP - General Internal Medicine 07/30/22 Cpr Instructor Relationship Specialty Start Date End Date Alice Polo DO [address] [place] [address] PCP - General Internal Medicine 07/30/22 Alice Polo DO [address] [place] [address] PCP - [facility] 12/23/23 Team Status: Inactive Member Role Status Dates Alice Polo DO Primary Care Provider Active Start: June 28, 2024 End: June 28, 2024 Johnny Tejada MD Attending Provider Active St art: June 28, 2024 End: June 28, 2024 Team Status: Inactive Member Role Status Dates Alice Polo DO Primary Care Provider Active Start: July 26, 2024 End: July 26, 2024 Alix Perez NP Attending Provider Active Start: July 26, 2024 End: July 26, 2024 Team Status: Inactive Member Role Status Dates Alice Polo DO Primary Care Provider Active Start: July 26, 2024 End: July 26, 2024 Gabe Gonzalez APRN Attending Provider Active Start: July 26, 2024 End: July 26, 2024 Cpr Instructor Relationship Specialty Start Date End Date Alice Polo DO [address] [place] [address] PCP - General Internal Medicine 07/30/22 Alice Polo DO [address] [place] [address] PCP - [facility] 12/23/23 Goals (unrecognized section and content) Goals may be documented in a n alternate section INFORMATION SOURCE (unrecogn ized section and content) DATE CREATED AUTHOR 12/21/2021 [facility] dical Specialist DATE CREATED AUTHOR AUTHOR'S ORGANIZ ATION 05/25/2022 [facility] DATE CREATED AUTHOR AUTHOR'S ORGANIZ ATION 06/05/2022 [facility] pital DATE CREATED AUTHOR AUTHOR'S ORGANIZ ATION 07/04/2024 [facility] y[facility] DATE CREATED AUTHOR AUTHOR'S ORGANIZ ATION 08/06/2024 [facility] dical Specialists [facility] FOR RECORDS PERTAINING TO PATIENTS WHO [...] BE BASED ON THE PRIMARY CLINICAL RECORDS. [employer] [facility]. provides no warranty or guarantee of the accuracy or completeness of information in this document.
[2024-08-09 08:11] VITALS: BP 155/80; PULSE 68; TEMP 36.2; O2SAT 100
[2024-08-09 09:04] VITALS: BP 149/77; BP 158/74; PULSE 58; PULSE 59; O2SAT 100
[2024-08-09] MEDS: BUPIVACAINE HCL 0.25% PF 25 MG/10 ML VIAL INJ (09:09)
[2024-08-09] MEDS: IOHEXOL 240 MG/ML - 10 ML VIAL 24 MG INJ (09:09)
[2024-08-09] MEDS: LIDOCAINE HCL 2% 400 MG/20 ML MDV INJ (09:09)
[2024-08-09] MEDS: 0.9 % SODIUM CHLORIDE 10 ML SYRINGE - SALINE FLUSH INJ (09:09)
--- NOTE | 2024-08-09 09:09 | P.ON_ITS ---
Date of procedure: 08/09/24 Pre-op diagnosis: Pain due to lumbar stenosis with neurogenic claudication Post-op diagnosis: same as pre-op Procedure: Procedure: Left L4-5, L5-S1 transforaminal epidural steroid injection Medications: Bupivacaine 0.25% 2cc, lidocaine 2% 1cc, depomedrol 80mg The patient was seen and examined in the preoperative holding area.? Informed consent was obtained and placed on the chart.? Patient was brought to the medical procedure unit and placed in the prone position where a timeout was completed verifying the correct patient, procedure site, position, and planned special equipment using sterile aseptic technique.? Under direct fluoroscopic visualization a 25-gauge Quincke tipped spinal needle was advanced to the designated neural foramen where contrast dye was injected to show adequate spread.? The needle was inserted at level left L4-5. There was no evidence of vascular or adverse uptake.? Epidural spread was appreciated.? The above- mentioned injectate was then placed in a 1.5 mL aliquot preceded by negative aspiration.? The needle was removed. The needle was inserted and the procedure repeated at level left L5-S1.? The surgery site was covered.? Patient was taken to the postprocedural recovery area and monitored for an appropriate length of time before found suitable for discharge in the accompaniment of a responsible adult. Anesthesia: Local Surgeon: Louis Laguna Pathology: none sent Condition: stable Disposition: no change
[2024-08-09] MEDS: METHYLPREDNISOLONE ACETATE 80 MG/ML VIAL INJ (09:10)
== END 2024-08-09 09:13 | disposition home or self-care (01) ==
LOC: SURGOUT 07:45
PROVIDERS: PCP Internal Medicine; Visit Provider Anesthesiology
DX: M48.062 Spinal stenosis, lumbar region with neurogenic claudication (principal)
CPT/HCPCS: 64483; 64484; J0665; J1010; Q9966

== ENCOUNTER 2024-08-19 14:12 | Outpatient (OUT) | payer OTHER, SELFPAY ==
--- OUTSIDE RECORDS SUMMARY | 2024-08-05 14:00 | XMS_ITS | Encounter Summary ---
Author Organization [facility] Address [address] [place] [address] Care Team Providers Care Record Changer Tester Name Role Phone Alice Polo DO Primary Care Provider Alice Polo DO Unavailable [phone] Reason for Visit * Reason Comments Foot Pain Right foot pain Encounter Details Date Type Department Care Team (Late st Contact Info) Description 08/05/2024 2:00 PM EDT Office Visit [facility] [address] [place] [address] Sesar Rothman, DPM [facility] [address] [place] [address] Metatarsal deformity, right (Primary Dx); Santana neuroma, right; Pain in right toe(s) Social History Tobacco Use Types Packs/Day Years Used Date Smoking Tobacco: Former Cigarettes Q uit: 03/24/2012 Smokeless Tobacco: Never Alcohol Use Standard Drinks/Week Comments Yes 2 (1 standard drink = 0.6 oz pur e alcohol) 1-2 drinks/2-3x a week AUDIT-C Answer Date Recorded Q1: How often do you have a drink containing alc ohol? 2-3 times a week 04/24/2023 Q2: How many drinks containi ng alcohol do you have on a typical day when you are drinking? 1 or 2 04/24/2023 Q3: How often do you have si x or more drinks on one occasion? Never 04/24/2023 PHQ-2 Answer Date Recorded Patient Health Questionnaire-2 Score 0 05/13/2024 Comments No Sex and Gender Information Value Date Recorded Sex Assigned at Female 12/04/2022 8:48 AM EDT Legal Sex Female 6:35 PM EDT Gender Identity Female 12/04/2022 8:48 AM EDT Sexual Orientation Not on file documented as of this encounter Last Filed Vital Signs Vital Sign Reading Time Taken Comments Blood Pressure 114/70 08/05/2024 1:54 PM EDT Pulse 78 08/05/2024 1:54 PM EDT Temperature - - Respiratory Rate - - Oxygen Saturation - - Inhaled Oxygen Concentration - - Weight 63 kg (139 lb) 08/05/2024 1:54 PM EDT Height 152.4 cm (5') 08/05/2024 1:54 PM EDT Body Mass Index 27.15 08/05/2024 1:54 PM EDT documented in this encounter Progress Notes * Sesar Rothman DPM FAC[facility] - 08/05/2024 2:00 PM EDT Images from the original note were not included. Patient: Giselle Georges : 1960 PCP: Alice Polo, SUBJECTIVE This is a 64 y.o. female that presents today with a chief complaint of burning and tingling about the right 2nd interspace. Patient states they feel like they are walking on a rock in their shoe. They feel burning and tingling radiating to the lesser digits. They feel as if the sock is curled up intheir shoe. This has progressively worsened over time. The patient has significant limitation in act ivities of daily living secondary to the pain. They have attempted numerous conservative therapies including: anti-inflammatory medications, shoe gear modifications, NSAIDs, to no avail. The patient rates the pain on a scale from 1-10 as an 8 with 10 being the worst pain of their lives. Allergies: Allergies Allergen Reactions Celebrex [Celecoxib] Other Pt felt sick, fatigued, sob, irritable Sulfa Antibiotics Hives and Rash Other Reaction(s): hives Past Medical History: Active Ambulatory Problems Diagnosis Date Noted Class 1 obesity 11/2022 Exercise-induced asthma 04/27/2023 Arthritis, lumbar spine 04/27/2023 Gastroesophageal reflux disease without esophagitis Postmenopausal Depression, major, in remission (HCC) ([facility]) Hormone replacement therapy Inflammatory arthritis 05/13/2024 Resolved Ambulatory Problems Diagnosis Date Noted No Resolved Ambulatory Problems Past Medical History: Diagnosis Date 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 Depression with anxiety Fibrocystic breast Genitourinary syndrome of menopause GERD (gastroesophageal reflux disease) History of skin cancer Lichen sclerosus Neuroma of face Obesity (BMI 30.0-34.9) Obstructive sleep apnea 07/2022 PVC (premature ventricular contraction) Medications: Current Outpatient Medications: albuterol HFA (Ventolin HFA) 90 mcg/act inhaler, Inhale 2 puffs every 6 (six) hours if needed for wheezing or shortness of breath, Disp: 8 g, Rfl: 1 baclofen (Lioresal) 5 MG tablet, Take 5 mg by mouth as needed at bedtime, Disp: , Rfl: citalopram (CeleXA) 10 MG tablet, Take 1 tablet (10 mg) by mouth Daily With 20mg to equal 30mg daily, Disp: 90 tablet, Rfl: 3 citalopram (CeleXA) 20 MG tablet, TAKE 1 TABLET BY MOUTH IN THE MORNING, Disp: 90 tablet, Rfl: 0 clobetasol (Temovate) 0.05 % cream, Apply topically 2 (two) times a day, Disp: 30 g, Rfl: 2 estradiol (Estrace) 0.5 MG tablet, Take 1 tablet (0.5 mg) by mouth Daily, Disp: 90 tablet, Rfl: 3 fluticasone (Flonase) 50 MCG/ACT nasal spray, Administer 1 spray into each nostril Daily as needed,Disp: , Rfl: hydroxychloroquine (Plaquenil) 200 MG tablet, Take 200 mg by mouth in the morning and 200 mg beforebedtime. Rx'd by Dr. Tejada Pt is taking a 1 tablet in the morning and a 1/2 tablet in the evening., Disp: , Rfl: pantoprazole (ProtoNix) 40 MG EC tablet, Take 40 mg by mouth in the morning and 40 mg before bedtime. Rx'd by GI., Disp: , Rfl: phentermine (Adipex-P) 37.5 MG tablet, Take 1 tablet (37.5 mg) by mouth in the morning. Take beforemeals., Disp: 30 tablet, Rfl: 0 Review of systems: Constitutional: Denies fever, chills, nausea, vomiting GI: Denies abdominal pain, cramping, loose stool, gastric ulcers Musculoskeletal: Denies low back pain, knee pain, systemic arthritis Neurologic: Denies burning, tingling, transient paralysis OBJECTIVE Physical Examination: DERM: Positive hair growth to b/l feet with good skin turgor noted. Negative openings in skin VASC: DP /PT were palpable bilateral. Capillary refill time < 3 seconds Digits 1-5 bilateral NEURO: Withams Maritza 5.07 monofilament was intact B/L. Vibratory sensation was intact B/L Musculoskeletal: Muscle strength was +5 over 5 all intrinsic and extrinsic muscles tested. There issignificant pain with direct palpation the right 2nd interspace. Significant pain noted with lateral compression of the lesser metatarsals. Mild swelling noted within the interspace. Significant lossof plantar fat pad with prominent lesser metatarsal heads noted. There is no pain with range of motion of the ankle or subtalar joint. Mild gastrocnemius-soleus equinus. Radiographs: AP/MO/LAT: Diagnostic ultrasound: Diagnostic ultrasound 12 megahertz linear probe Hypoechoic neuroma about the2nd interspace right foot ASSESSMENT 1. Santana neuroma, right 2. Metatarsal deformity, right PLAN The patient was educated on the etiology of Intermetatarsal neuroma right. I discussed conservativeoptions including wider toe box shoes anti-inflammatory medications. As an attempted conservative care the patient was injected with 1 cc of 2% lidocaine plain and 1 cc of Kenalog 10 directly into the body of the neuroma right foot. Ultrasound was necessary to ensure exact placement into the hypoechoic neuroma body and to avoid injection into the underlying subcutaneous tissue. Patient was digitally scan today for custom-molded orthotic devices. Care was taken to place the subtalar joint in neutral position. The patient was informed that the orthotics will take 3 weeks to arrive from the laboratory. LOW Cedillo documented in this encounter Plan of Treatment Upcoming Encounters Date Type Department Care Team (Late st Contact Info) Description 08/19/2024 3:40 PM EDT Clinical Support [facility] [address] [place] [address] Sesar Rothman, DPM [facility] [address] [facility] [place] [address] 02/10/2025 2:15 PM EST Office Visit [facility] [address] [place] [id number] Paul Disla, DO [address] [place] [address] documented as of this encounter Visit Diagnoses Diagnosis Metatarsal deformity, right- Primary Santana neuroma, right Pain in right toe(s) documented in this encounter Care Teams Record Changer Tester Relationship Specialty Start Date End Date Alice Polo DO [address] [place] [address] PCP - General Internal Medicine 07/30/22 Alice Polo DO [address] [place] [address] PCP - [facility] 12/23/23 documented as of this encounter
--- OUTSIDE RECORDS SUMMARY | 2024-08-19 14:14 | XMS_ITS | Encounter Summary ---
Author Organization [facility] Address [address] [place] [address] Care Team Providers Care Fisher Lampara Net Name Role Phone Alice Polo DO Primary Care Provider Alcie Polo DO Unavailable [phone] Encounter Details Date Type Department Care Team (Late st Contact Info) Description 08/05/2024 Telephone [facility] [address] [place] [id number] Sanaz Bello MA Social History Tobacco Use Types Packs/Day Years [...] on file documented as of this encounter Miscellaneous Notes * Telephone Encounter - Saanz Bello MA - 08/05/2024 4:25 PM EDT FOOT ORTHOTICS, PT WAS SCANNED AT APPOINTMENT AND WILL NEED MET PADS ADDED TO ORDER documented in this encounter Plan of Treatment Upcoming Encounters Date Type Department Care Team (Late st Contact Info) Description 08/19/2024 3:40 PM EDT Clinical Support [facility] [address] [place] [address] DolSesar rosen, DPM [facility] [address] [place] [address] 02/10/2025 2:15 PM EST Office Visit [facility] [address] [place] [id number] Paul Disla DO [address] [place] [address] documented as of this encounter Visit Diagnoses Not on filedocumented in this encounter Care Teams Fisher Lampara Net Relationship Specialty Start Date End Date Alice Polo DO [address] [place] [address] PCP - General Internal Medicine 07/30/22 Alice Polo DO [address] [place] [address] PCP - [facility] 12/23/23 documented as of this encounter
--- OUTSIDE RECORDS SUMMARY | 2024-08-19 14:14 | XMS_ITS | Encounter Summary ---
Author Organization [facility] Address [address] [place] [address] Care Team Providers Care Lens [employer] Fr[employer] Prescription Clerk Name Role Phone Alice Polo DO Primary Care Provider Alice Polo DO Unavailable [phone] Reason for Visit * Reason Onset Date Comments Foot Orthotics 08/05/2024 Sent 08/12/24 Encounter Details Date Type Department Care Team (Late st Contact Info) Description 08/05/2024 Telephone [facility] [address] [facility] [address] [place] [address] Sesar Rothman, DPM FACFAS [address] [place] [address] [place] [address] Foot Orthotics (Sent 08/12/24) Social History Tobacco Use Types Packs/Day Years [...] encounter Miscellaneous Notes * Telephone Encounter - Jolene Frazier MA - 08/12/2024 12:32 PM EDT [facility] * Telephone Encounter - Batsheva Joseph - 08/12/2024 10:57 AM EDT Please send scan * Telephone Encounter - Batsheva Joseph - 08/12/2024 10:56 AM EDT Per Jordyn with [facility] Ref # [id number] Covered @ 100%, no ded/oop No PA, no exclusions 1 pair per 2 years (none purchased) documented in this encounter Plan of Treatment Upcoming Encounters Date Type Department Care Team (Late st Contact Info) Description 08/19/2024 3:40 PM EDT Clinical Support [facility] [address] [place] [id number] Sesar Rothman R, DPM [facility] [address] [place] [address] 02/10/2025 2:15 PM EST Office Visit [facility] [address] [place] [address] Paul Disla, DO [address] [facility] [address] [place] [address] documented as of this encounter Visit Diagnoses Diagnosis Metatarsal deformity, right- Primary documented in this encounter Care Teams [employer] And [employer] Prescription Clerk Relationship Specialty Start Date End Date Alice Polo DO [address] [place] [address] PCP - General Internal Medicine 07/30/22 Alice Polo DO [address] [place] [address] PCP - [facility] 12/23/23 documented as of this encounter
--- OUTSIDE RECORDS SUMMARY | 2024-08-19 14:14 | XMS_ITS | Clinical Summary ---
Author Organization [facility] Address [address] [place] [address] Care Team Providers Care Motor Coach Supervisor Name Role Phone Alice Polo DO Primary Care Provider Alice Polo DO Unavailable [phone] Allergies Active Allergy Reactions Criticality Noted Date Comments Celecoxib Other 05/13/2024 Pt felt sick, fatigued, sob, irritable Sulfa Antibiotics Hives,Rash Low 12/11/2022 Other Reaction(s): hives Medications pantoprazole (ProtoNix) 40 MG EC tablet Take 40 mg by mouth in the morning and 40 mg before bedtime. Rx'd by GI. Active baclofen (Lioresal) 5 MG tablet Take 5 mg by mouth as needed at bedtime Active estradiol (Estrace) 0.5 MG tabletIndicatio ns:Postmenopaus al HRT (hormone replacement therapy) Take 1 tablet (0.5 mg) by mouth Daily 90 tablet 3 02/09/20 24 025 Active clobetasol (Temovate) 0.05 % creamIndication s:Lichen sclerosus Apply topically 2 (two) times a day 30 g 2 02/09/20 24 Active citalopram (CeleXA) 10 MG tabletIndicatio ns:Anxiety, generalized (CMS/HCC) Take 1 tablet (10 mg) by mouth Daily With 20mg to equal 30mg daily 90 tablet 3 02/09/20 24 025 Active citalopram (CeleXA) 20 MG tabletIndicatio ns:Anxiety, generalized (CMS/HCC) TAKE 1 TABLET BY MOUTH IN THE MORNING 90 tablet 05/10/19 25 Active fluticasone (Flonase) 50 MCG/ACT nasal spray Administer 1 spray into each nostril Daily as needed 02/02/20 23 025 Discontinued albuterol HFA (Ventolin HFA) 90 mcg/act inhalerIndicati ons:Shortness of breath Inhale 2 puffs every 6 (six) hours if needed for wheezing or shortness of breath 8 g 1 02/16/20 24 025 Discontinued hydroxychloroqu ine (Plaquenil) 200 MG tablet Take 200 mg by mouth in the morning and 200 mg before bedtime. Rx'd by Dr. Tejada Pt is taking a 1 tablet in the morning and a 1/2 tablet in the evening. 025 Discontinued phentermine (Adipex-P) 37.5 MG tabletIndicatio ns:BMI 32.0-32.9,adult Take 1 tablet (37.5 mg) by mouth in the morning. Take before meals. 30 tablet 06/11/19 25 025 Discontinued Active Problems Problem Noted Date Diagnosed Date Inflammatory arthritis 05/13/2024 Overview (05/13/2024): She has been seeing Rheum/Dr Tejada. She was started on plaquenil 03/2024 Assessment & Plan (05/13/2024 10:46 PM EST): She reports she has an upcoming appt with Ophthal for an eye exam for a baseline exam. She reports she will have labs (per Dr Tejada) in ~2 months Exercise-induced asthma 04/27/2023 Assessment & Plan (05/13/2024 10:50 PM EST): She reports she had to use albuterol when she had recent bronchitis, but not a routine basis. Will monitor frequency of use and consider change to prn Airsupra if she finds herself needing a rescue inhaler Arthritis, lumbar spine 04/27/2023 Overview (04/27/2023): She is taking baclofen at night Class 1 obesity 11/22/2022 Overview (05/13/2024): 11/2022- she started phentermine (weight at that time was 165#/BMI=32.22). 04/24/2023- weight down to 146# 05/13/2024 PC=410.4# Assessment & Plan (05/13/2024 10:49 PM EST): She has done well on the phentermine. She tried to stop this, but has had ~5# increase. She has been off for ~3 weeks. Will resume, but I did advise she may be able to decrease to 1/2 tab. She will see how she is doing back on the whole tab and then consider decreasing dose. I also advised her that we could change to 8 mg tabs that she could take up to 3 times a day, but will not pursue this change at this time. Assessment & Plan (04/27/2023 6:56 PM EST): -She has been making lifestyle changes and has been able to lose weight and BMI is now <30. She will continue to work on these changes. -Discussed being able to continue this medication with possibility of reducing the dose down the road for maintenance. Gastroesophageal reflux disease without esophagi tis Overview (04/27/2023): Prescribed pantoprazole Assessment & Plan (05/13/2024 10:54 PM EST): -Pt advised to avoid food triggers and follow conservative management measures (including avoiding tight fitting pants, weight management, and elevating HOB as indicated) to keep GERD symptoms under control. -Take medications as recommended and monitor for alarm symptoms . Assessment & Plan (04/27/2023 6:53 PM EST): -Pt advised to avoid food triggers and [...] . Postmenopausal Depression, major, in remission (HCC) Overview (04/27/2023): Prescribed citalopram Assessment & Plan (05/13/2024 10:51 PM EST): She reports good sx control at this time. Will continue current Rx (Celexa 30 mg) daily and monitor sx Assessment & Plan (04/27/2023 6:53 PM EST): -Pt is doing well at this time on current dose of celexa. Based on review of patient's medications and current medical status; continuation of medications most appropriate. Compliance with medications and/or management recommendations encouraged. Monitor Hormone replacement therapy Overview (04/27/2023): Prescribed estradiol 0.5 mg daily by OBJECTS CONSERVATOR/Dr Disla Encounters Date Type Department Care Team Description 08/12/2024 Abstract [facility] [address] [place] [address] Sesar Rothman, DPM FACFAS 08/05/2024 2:00 PM EDT Office Visit [facility] [address] [place] [address] Sesar Rothman R, DPM FACFAS Metatarsal deformity, right (Primary Dx); Santana neuroma, right; Pain in right toe(s) 08/05/2024 Telephone [facility] [address] [place] [address] Sesar Rothman, DPM FACFAS Foot Orthotics (Sent 08/12/24) 08/05/2024 Telephone [facility] [address] [place] [address] BelloCasi jeromeJOSEPH haider 08/05/2024 Bamboo flowsheet [facility] [address] [place] [address] LornaSesar Chely, DPM FACFAS 08/04/2024 Travel 06/10/2024 Refill [facility] [address] [place] [address] CreteLana dent, HATCHERY LABORER BMI 32.0-32.9,adult from Last 3 Months Immunizations Immunization Administration Dates Next Due Influenza, Injectable, MDCK, preservative free 12/08/2023,02/09/2018 Influenza, injectable, MDCK, preservative free, quadrivalent 12/25/2022 Influenza, injectable, MDCK, quadrivalent 2021 Influenza, injectable, quadr ivalent, preservative free 12/13/2020,01/10/2020,01/18/2015 Influenza, seasonal, injecta ble, preservative free 11/22/2018 Influenza, seasonal, intrade rmal, preservative free 04/15/2017,01/08/2016 Novel [id number], preservative-free 01/28 RSV, recombinant, protein mendoza bunit RSVpreF, adjuvant reconstitu, 120mcg/0.5mL, PF (Arexvy) 12/25/2022 Tdap 06/29/2015 Zoster, Recombinant 05/28/2021,02/07/2021 Family History Medical History Relation Name Comments Atrial fibrillation Brother Ronni Garrett Coronary artery disease Brother Ronni Garrett Depression Brother Ronni Garrett Severe Depressi on Heart failure Brother Ronni Garrett CHF No Known Problems Daughter Healthy Alcohol abuse Father KEN GARRETT Asthma Father KEN GARRETT Basal cell carcinoma Father KEN GARRETT brain tumor Father KEN GARRETT benign brain tu mor with shunt due to hydrocephalus Depression Mother Michela Garrett,Ken Garrett(father), Ronni Garrett (b Hyperthyroidism Mother Michela Garrett,Ken Garrett(father), Ronni Garrett (b Osteoarthritis Mother Michela Garrett,Ken Garrett(father), Ronni Garrett (b Osteoporosis Mother Michela Garrett,Ken Garrett(father), Ronni Tami (b Stroke Mother Ken Sparrow(father), Ronni Garrett (b Heart attack Paternal Grandfather Acute M I Ulcerative colitis Son Melanoma Neg Hx Relation Name Status Comments Brother Ronni Garrett 1 brother Daughter Alive 1 daughter Father KEN GARRETT Alive Mother Ken Sparrow(father), Ronni Garrett (b Alive Paternal Grandfather in 30's Son Alive 2 sons Social History Tobacco Use Types Packs/Day Years Used Date Smoking Tobacco: Former Cigarettes Q uit: 03/24/2012 Smokeless Tobacco: Never Tobacco Cessation:Counseling Given: No Alcohol Use Standard Drinks/Week Comments Yes 2 [...] AM EDT Sexual Orientation Not on file Last Filed Vital Signs Vital Sign Reading Time Taken Comments Blood Pressure 114/70 08/05/2024 1:54 PM EDT Pulse 78 08/05/2024 1:54 PM EDT Temperature 35.6 C (96 F) 06/09/2023 10:56 AM EDT Respiratory Rate 16 02/16/2024 9:08 AM EST Oxygen Saturation 99% 05/13/2024 9:46 AM EST Inhaled Oxygen Concentration - - Weight 63 kg (139 lb) 08/05/2024 1:54 PM EDT Height 152.4 cm (5') 08/05/2024 1:54 PM EDT Body Mass Index 27.15 08/05/2024 1:54 PM EDT Plan of Treatment Upcoming Encounters Date Type Department Care Team (Late st Contact Info) Description 08/19/2024 3:40 PM EDT Clinical Support [facility] [address] [place] [address] Sesar Rothman, DPM FACFAS [address] [place] [address] 02/10/2025 2:15 PM EST Office Visit [facility] [address] [place] [address] VisciPaul A, DO [address] [place] [address] Health Maintenance Due Date Last Done Comments CT Colonography 1962 FIT-DNA 1962 FIT 1962 FOBT 1962 Sigmoidoscopy 1962 Mammogram 02/09/2025 02/10/2024, 04/2022, 12/06/2021, Additional history exists Colonoscopy 12/29/2030 12/29/2020, 10/31/2015, 06/23 Colorectal Cancer Screening 12/29/2030 Influenza Vaccine Completed 12/08/2023, , 12/25/2022, Additional history exists Procedures Procedure Name Priority Date/Time Associated Diagnosis Comments BI MAMMOGRAM SCREENING TOMOSYNTHESIS BILATERAL Routine 02/10/2024 4:17 PM EST Encounter for screening mammogram for malignant neoplasm of breast COLONOSCOPY Routine 12/29/2020 12:00 PM EDT from Last 3 Months or Most Recently Relevant to Health Maintenance Results * Bilateral screening mammogram with tomosynthesis (02/10/2024 4:17 PM EST) Anatomical Region Laterality Modality Breast Bilateral Mammography 02/11/2024 1:11 PM EST Impressions 02/11/2024 1:16 PM EST Impression: No specific evidence of malignancy seen in either breast. BIRADS 2 - Benign DENSITY: There are scattered areas of fibroglandular density FOLLOW-UP: Routine Screening Mamm ELECTRONICALLY SIGNED BY: Jameel Gutierrez M.D. Narrative 02/11/2024 1:16 PM EST Examination: BI MAMMOGRAM SCREENING TOMOSYNTHESIS BILATERAL Clinical [...] lymph nodes are noted on the left. Procedure Note Jameel Gutierrez MD - 02/11/2024 Examination: BI MAMMOGRAM SCREENING TOMOSYNTHESIS BILATERAL Clinical History: screening Technique: Screening digital mammography study of both breasts wasperformed with 2-D and 3-D tomosynthesis imaging. Study was compared tothe prior exam dated 12/23/2022. Findings: There is no evidence of interval dominant spiculated mass,grouped microcalcifications, or skin thickening which would be suggestiveof malignancy. A few benign-appearing calcifications are seen bilaterally. Axillary lymphnodes are noted on the left. IMPRESSION: Impression: No specific evidence of malignancy seen in either breast. BIRADS 2 - Benign DENSITY: There are scattered areas of fibroglandular density FOLLOW-UP: Routine Screening Mamm ELECTRONICALLY SIGNED BY: Jameel Gutierrez M.D. Paul Disla DO IMG BI PROCEDURES Final Resul t * Colonoscopy (12/29/2020 12:00 PM EDT) Anatomical Region Laterality Modality Endoscopy 12/29/2020 12:0 0 PM EDT Narrative 12/29/2020 12:00 PM EDT PERFORMED AT [facility] LOCATION:[id number] No mucosal abnormalities, but random bxs done Procedure Note CONVERSION, GENERIC - 08/07/2022 PERFORMED AT [facility] LOCATION:[id number] No mucosal abnormalities, but random bxs done Alice Polo DO ENDOSCOPY PROCEDURE ORD ERABLES Final Result from Last 3 Months or Most Recently Relevant to Health Maintenance Insurance [employer] Care Teams Motor Coach Supervisor Relationship Specialty Start Date End Date Alice Polo DO [address] [place] [address] PCP - General Internal Medicine 07/30/22 Alice Polo DO [address] [place] [address] PCP - [facility] 12/23/23
--- OUTSIDE RECORDS SUMMARY | 2024-08-19 14:14 | XMS_ITS | Encounter Summary ---
Author Organization [facility] Address [address] [place] [address] Care Team Providers Care Personnel Security Assistant Name Role Phone Alice Polo DO Primary Care Provider Alice Polo DO Unavailable [phone] Encounter Details Date Type Department Care Team (Late st Contact Info) Description 08/05/2024 Bamboo flowsheet [facility] [address] [place] [address] Sesar Rothman, DPM FACFAS [address] [place] [address] Social History Tobacco Use Types Packs/Day Years [...] on file documented as of this encounter Plan of Treatment Upcoming Encounters Date Type Department Care Team (Late st Contact Info) Description 08/19/2024 3:40 PM EDT Clinical Support [facility] [address] [facility] [address] Sesar Rothman, DPM FACFAS [address] [facility] [place] [address] 02/10/2025 2:15 PM EST Office Visit [facility] [address] [place] [address] Paul Disla DO [address] [place] [address] documented as of this encounter Visit Diagnoses Not on filedocumented in this encounter Care Teams Personnel Security Assistant Relationship Specialty Start Date End Date Alice Polo DO [address] [place] [address] PCP - General Internal Medicine 07/30/22 Alice Polo DO [address] [place] [address] PCP - [facility] 12/23/23 documented as of this encounter
--- OUTSIDE RECORDS SUMMARY | 2024-08-19 14:15 | XMS_ITS | Encounter Summary ---
Author Organization [facility] Address [address] [facility] [place] [place] [address] Care Team Providers Care Manager Sales Training Name Role Phone Alice Polo DO Primary Care Provider Alice Polo DO Unavailable [phone] Encounter Details Date Type Department Care Team (Late st Contact Info) Description 09/04/2022 Orders Only [facility] [address] [facility] [address] [place] [address] Provider, MD Lucien [address] [place] [address] Social History Tobacco Use Types Packs/Day Years Used Date Smoking Tobacco: Never Assessed Comments Unknown Sex and Gender Information Value Date Recorded Sex Assigned at Female 12/04/2022 8:48 AM EDT Legal Sex Female 6:35 PM EDT Gender Identity Female 12/04/2022 8:48 AM EDT Sexual Orientation Not on file documented as of this encounter Plan of Treatment Upcoming Encounters Date Type Department Care Team (Late st Contact Info) Description 08/19/2024 3:40 PM EDT Clinical Support [facility] [address] [place] [address] Sesar Rothman, DPM FACFAS [address] [facility] [place] [address] 02/10/2025 2:15 PM EST Office Visit [facility] [address] [place] [address] Paul Disla, DO [address] [place] [address] documented as of this encounter Procedures Procedure Name Priority Date/Time Associated Diagnosis Comments NM ESOPHAGUS GASTROESOPHAGEAL REFLUX Routine 09/03/2022 8:17 AM EDT documented in this encounter Results * NM esophagus gastroesophageal reflux (09/03/2022 8:17 AM EDT) Anatomical Region Laterality Modality Body Nuclear Medicine us Historical Provider MD URIEL CHAUDHARY PROCEDURES Edited Result - Final documented in this encounter Visit Diagnoses Not on filedocumented in this encounter Care Teams Manager Sales Training Relationship Specialty Start Date End Date Alice Polo DO [address] [place] [address] PCP - General Internal Medicine 07/30/22 Alice Polo DO [address] [place] [address] PCP - [facility] 12/23/23 documented as of this encounter
--- OUTSIDE RECORDS SUMMARY | 2024-08-19 14:15 | XMS_ITS | Encounter Summary ---
Author Organization [facility] Address [address] [facility] [place] [address] Care Team Providers Care Spar Finisher Name Role Phone Alice Polo DO Primary Care Provider Alice Polo DO Unavailable [phone] Encounter Details Date Type Department Care Team (Late st Contact Info) Description 08/07/2023 Orders Only [facility] [address] [facility] [address] [place] [address] Jordyn Schroeder, CRISTEL [address] [place], [place] [id number] Social History Tobacco Use Types Packs/Day Years Used Date Smoking Tobacco: Former Cigarettes Q uit: 03/24/2012 Smokeless Tobacco: Never Alcohol Use Standard Drinks/Week Comments Yes 2 (1 standard drink = 0.6 oz pur e alcohol) Once a week AUDIT-C Answer Date Recorded Q1: [...] Date Recorded Patient Health Questionnaire-2 Score 0 04/24/2023 Comments No Sex and Gender Information Value [...] Clinical Support [facility] [address] [place] [address] DolSesar rosen R, DPM FACFAS [address] [facility] [place] [address] 02/10/2025 2:15 PM EST Office Visit [facility] [address] [place] [address] Paul Disla, DO [address] [place] [address] documented as of this encounter Procedures Procedure Name Priority Date/Time Associated Diagnosis Comments XR CERVICAL SPINE COMPLETE 4-5 VIEWS Routine 08/07/2023 10:08 AM EDT documented in this encounter Results * XR cervical spine complete 4 to 5 views (08/07/2023 10:08 AM EDT) Anatomical Region Laterality Modality Spine, C-spine Radiographic Frances ging Jordyn Schroeder RAW SHELLFISH PREPARER IMG XR PROCEDURES Final Result documented in this encounter Visit Diagnoses Not on filedocumented in this encounter Care Teams Spar Finisher Relationship Specialty Start Date End Date Alice Polo DO [address] [place] [address] PCP - General Internal Medicine 07/30/22 Alice Polo DO [address] [place] [address] PCP - [facility] 12/23/23 documented as of this encounter
--- OUTSIDE RECORDS SUMMARY | 2024-08-19 14:15 | XMS_ITS | Encounter Summary ---
Author Organization [facility] Address [address] [facility] [place] [place] [address] Care Team Providers Care Ballistics Teacher Name Role Phone Alice Polo DO Primary Care Provider Alice Polo DO Unavailable [phone] Encounter Details Date Type Department Care Team (Late st Contact Info) Description 09/08/2023 Orders Only [facility] [address] [facility] [address] [place] [address] A, Unknown Practice [address] [place], [place] [address] Social History Tobacco Use Types Packs/Day Years [...] Clinical Support [facility] [address] [place] [address] Sesar Rothman, DPM FACFAS [address] [place] [address] 02/10/2025 2:15 PM EST Office Visit [facility] [address] [place] [address] Paul Disla, DO [address] [place] [address] documented as of this encounter Procedures Procedure Name Priority Date/Time Associated Diagnosis Comments MR LUMBAR SPINE W AND WO CONTRAST Routine 09/05/2023 2:31 PM EDT documented in this encounter Results * MR lumbar spine w and wo contrast (09/05/2023 2:31 PM EDT) Anatomical Region Laterality Modality Spine, L-spine Magnetic Resonan ce us Unknown Practice A IMG MRI PROCEDURES Final Resu lt documented in this encounter Visit Diagnoses Not on filedocumented in this encounter Care Teams Ballistics Teacher Relationship Specialty Start Date End Date Alice Polo DO [address] [place] [address] PCP - General Internal Medicine 07/30/22 Alice Polo DO [address] [place] [address] PCP - [facility] 12/23/23 documented as of this encounter
--- OUTSIDE RECORDS SUMMARY | 2024-08-19 14:15 | XMS_ITS | Encounter Summary ---
Author Organization [facility] Address [address] [place] [address] Care Team Providers Care Automobile Body Worker Name Role Phone Alice Polo DO Primary Care Provider Alice Polo DO Unavailable [phone] Encounter Details Date Type Department Care Team (Late st Contact Info) Description 08/12/2024 Abstract [facility] [address] [place] [address] Sesar Rothman, DPM FACFAS [address] [facility] [place] [place] [address] Social History Tobacco Use Types Packs/Day Years [...] EDT Clinical Support [facility] [address] [facility] [place] [address] Sesar Rothman, DPM FACFAS [address] [facility] [place] [address] 02/10/2025 2:15 PM EST Office Visit [facility] [address] [place] [address] Paul Disla DO [address] [place] [address] documented as of this encounter Visit Diagnoses Not on filedocumented in this encounter Care Teams Automobile Body Worker Relationship Specialty Start Date End Date Alice Polo DO [address] [place] [address] PCP - General Internal Medicine 07/30/22 Alice Polo DO [address] [place] [address] PCP - [facility] 12/23/23 documented as of this encounter
--- OUTSIDE RECORDS SUMMARY | 2024-08-19 14:15 | XMS_ITS | Clinical Summary ---
Author Organization [facility] Address [address] [place] [address] Phone Care Team Providers Care Wearing Apparel Shaker Name Role Phone Alice Polo DO Primary Care Provi cinthia Social History Tobacco Use Types Packs/Day Years Used Date Smoking Tobacco: Never Assessed Comments Unknown Sex and Gender Information Value Date Recorded Sex Assigned at Not on file Legal Sex Female 9:02 AM EST Gender Identity Not on file Sexual Orientation Not on file Plan of Treatment Health Maintenance Due Date Last Done Comments CT Colonography 1962 Colonoscopy 1962 Colorectal Cancer Screening 1962 FIT-DNA (Cologuard) 1962 FIT 1962 HIV Screening 1962 Lipid Panel 1962 Sigmoidoscopy 1962 Yearly Adult Physical 1962 MMR Vaccines (1 of 1 - Stand darcie series) 07/06/1963 Hepatitis C Screening 1980 Cervical Cancer Screening 07/06/1983 HPV/Cotest 07/06/1983 Pap Smear 07/06/1983 DTaP/Tdap/Td Vaccines (1 - Tdap) 1984 Mammogram 2002 Pneumococcal Vaccine (1 of 1 - PCV) 2012 Zoster Vaccines (1 of 2) 2012 COVID-19 Vaccine ( - 2023-2 5 season) 2023 Influenza Vaccine (Season Ended) 2024 RSV High Risk: (Elderly (60+ ) or Population) (1 - 1-dose 75+ series) 2037 HIB Vaccines Aged Out No longer eligi ble based on patient's age to complete this topic HPV Vaccines Aged Out No longer eligi ble based on patient's age to complete this topic Hepatitis A Vaccines Aged Out No long er eligible based on patient's age to complete this topic Hepatitis B Vaccines Aged Out No long er eligible based on patient's age to complete this topic IPV Vaccines Aged Out No longer eligi ble based on patient's age to complete this topic Meningococcal Vaccine Aged Out No howie rip eligible based on patient's age to complete this topic Rotavirus Vaccines Aged Out No longer eligible based on patient's age to complete this topic Care Teams Wearing Apparel Shaker Relationship Specialty Start Date End Date Alice Polo DO [address] [place] [address] PCP - General 05/21/22
--- NOTE | 2024-08-19 15:13 | PM.CN ---
Consult Note: HPI Data of Consult Patient: known to practice within the last 3 years Requesting Physician: Jordyn Schroeder NP Primary Care Provider: PTEER FERRER Consult Narrative Reason for consult: f/u Narrative: Flores Georges a pleasant 64 year old female with chronic back pain. Patient reporting pain 0/10 intermittent in left low back and left leg Pain increasing to 2/10 with standing, walking, activity. pain improves with forward flexion and sitting. Finds mild improvement from motrin and baclofen 5-10mg PRN without side effects. Continues to engage in provider guided HEP greater than 6 weeks with mild benefit. patient trialed TENS without benefit, she has attended >10 care assistant visits with moderate benefit. continues to engage in provider guided HEP 2x/week > 6 weeks for neck and low back pain. Pt reports >50% improvement as a result of recent left L4-5 L5-S1 tfesi. cc:: CC: Jordyn Schroeder NP Review of Systems ROS Status of ROS 10 or more systems reviewed and unremarkable except as noted in history and below Musculoskeletal Reports: back pain, extremity pain and joint pain PFSH PFSH Medical History Surgical History H/O hand surgery ?Z98.890 - Other specified postprocedural states (ICD-10) History of cholecystectomy ?Z90.49 - Acquired absence of other specified parts of digestive tract (ICD-10) H/O: hysterectomy ?Z90.710 - Acquired absence of both cervix and uterus (ICD-10) Meds Home Medications and Allergies Home Medications ?Medication ?Instructions ?Recorded ?Confirmed ?Type baclofen 10 mg tablet 10 mg PO DAILY 08/29/22 08/09/24 History citalopram 20 mg tablet (Celexa) 20 mg PO DAILY 08/29/22 08/09/24 History estradiol 1 mg tablet (Estrace) 1 mg PO DAILY 08/29/22 08/09/24 History omeprazole 40 mg capsule,delayed 40 mg PO DAILY 08/29/22 08/09/24 History release Allergies Allergy/AdvReac Type Severity Reaction Status Date / Time Sulfa (Sulfonamide Allergy Mild Unknown Verified 08/09/24 08:10 Antibiotics) Exam Constitutional Documenting provider has reviewed patient's vital signs: yes Common normals: no apparent distress, oriented x3, healthy appearing, alert and well nourished General appearance: cooperative HENMT Common normals: normocephalic, hearing grossly normal bilaterally and moist oral mucous membranes Head and scalp: normocephalic Eye Common normals: PERRL Pupil: PERRL Neck & C-Spine Common normals: full ROM General: normal visual inspection Cervical spine: cervical ROM abnormal, pain with cervical ROM and cervical spine tenderness Chest Common normals: inspection of chest normal Respiratory Common normals: normal respiratory effort, no retractions and no use of accessory muscles Back & Pelvis Thoracic spine/upper back: normal to inspection, paraspinal muscle tenderness and paraspinal muscle spasm Lumbar spine/lower back: normal to inspection, paraspinal muscle tenderness, paraspinal muscle spasm and straight leg raise negative bilaterally Sacroiliac joints: SI joints normal Other: strength 5/5 in BLE Extremity Common normals: normal to inspection and full ROM Neuro Common normals: oriented x3 Sensorium/orientation: alert Motor exam: no movement abnormalities noted Psych Common normals: mental status grossly normal, thought process normal, cooperative, affect normal, speech normal and activity/motor behavior normal Speech: normal speech Thought process: normal thought process Results Additional Findings Additional findings: If on a controlled substance or opioids, I have checked an [place]AR[place] report on this patient and there are no aberrancies noted in the prescribing history.??If on a controlled substance or opioid a drug screen was completed and reviewed within the last year, and if there has not been a drug screen completed we ordered one today to monitor higher risk, state monitored pain medication use. As part of providing excellent, safe, comprehensive care, the following was completed at our patient's visit: 1. A medication reconciliation and review to ensure accurate knowledge of current/active medications, including asking our patients to inform us about any [id number] medications or herbal remedies/nutritional supplements/alternative remedies. 2. A review to specifically ensure our patients have had annual screening for screening for depression, screening for tobacco use, and screening for unhealthy alcohol use. For concerning screenings had a discussion with the patient, provided patient education, and recommended follow-up with primary care provider when appropriate. If patient noted with a risk of falling, they received education on strength, gait, and balance training to prevent future risk of falling. Portions of this note may have been carried over from the previous visit and updated as appropriate. Please note this office utilizes paper charting in addition to the electronic medical record. A list of current medications, vitals, and PMH is available there as the clinical staff outside of myself do not have access to [employer] charting during the clinic day operations. As part of providing quality comprehensive care the current medications, vitals, and PMH were reviewed in the paper chart. Assessment and Plan Assessment and Plan (1) Lumbar stenosis with neurogenic claudication: Assessment and Plan: The patient has had over 3 months of moderate to severe neck and low back pain with functional impairment and inadequate response to conservative care including NSAIDS (unless there are contraindication such as concurrent blood thinners), multiple oral or topical pain medications, and home exercise program/physical therapy.? Patient has completed >6 weeks of guided home exercise program and/or formal physical therapy program without relief of their symptoms.? I have reviewed the imaging of the cervical and lumbar spine and no red flags were identified.? The imaging reveals radiographic findings consistent with cervical/lumbar spondylosis and lumbar radiculopathy/stenosis with NC The Oswestry Disability Index was completed, and the patient scored a 12%.? The patient noted the following:?? moderate to severe pain with standing, walking, ADLs We discussed the risks and benefits of the procedure with the patient, and we are NOT planning on using sedation as outlined in the guidelines from Medicare unless there is a documented reason that sedation would be strongly recommended.??The procedure will be completed with fluoroscopic guidance.? (2) Sacroiliitis: (3) Lumbar spondylosis: (4) Muscle spasm: (5) Lumbar radiculopathy: (6) Cervical spondylosis: Plan continue current medications, denies side effects continue HEP as tolerated continue care assistant PRN f/u 3 months, sooner if needed
== END 2024-08-19 14:13 | disposition home or self-care (01) ==
LOC: PM 14:12
PROVIDERS: PCP Internal Medicine; Visit Provider Nurse Practitioner
DX: M48.062 Spinal stenosis, lumbar region with neurogenic claudication (principal); M46.1 Sacroiliitis, not elsewhere classified; M47.816 Spondylosis without myelopathy or radiculopathy, lumbar region; M62.838 Other muscle spasm; M54.16 Radiculopathy, lumbar region; M47.812 Spondylosis without myelopathy or radiculopathy, cervical region
CPT/HCPCS: G0463

== ENCOUNTER 2024-11-18 10:17 | Outpatient (OUT) | payer OTHER, SELFPAY ==
--- OUTSIDE RECORDS SUMMARY | 2024-11-18 10:20 | XMS_ITS | Clinical Summary ---
Author Organization [facility] Address [address] [place] [address] Phone Care Team Providers Care Quality Assurance Clerk Name Role Phone Alice Polo DO [...] Vaccines (1 of 2) 2012 COVID-19 Vaccine (1 - 2023-2 5 season) 2023 Influenza Vaccine (#1) 2024 RSV High Risk: (Elderly (60+ ) [...] age to complete this topic Care Teams Quality Assurance Clerk Relationship Specialty Start Date End Date Alice Polo DO [address] [facility] [address] [place] [address] PCP - General 05/21/22
--- OUTSIDE RECORDS SUMMARY | 2024-11-18 10:20 | XMS_ITS | Encounter Summary ---
Author Organization [facility] Address [address] [place] [address] Care Team Providers Care Yarn Conditioner Name Role Phone Luna-Alice Mccabe DO Primary Care Provider Encounter Details Date Type Department Care Team (Late st Contact Info) Description 10/11/2024 Abstract [facility] [address] [place] [id number] Sesar Rothman, DPM FACFAS [address] [facility] [address] Social History Tobacco Use Types Packs/Day Years [...] Care Team (Late st Contact Info) Description 02/10/2025 2:15 PM EST Office Visit [facility] [address] [place] [address] Paul Disla DO [address] [place] [address] documented as of this encounter Visit Diagnoses Not on filedocumented in this encounter Care Teams Yarn Conditioner Relationship Specialty Start Date End Date Alice Polo DO [address] [place] [address] PCP - General Internal Medicine 07/30/22 documented as of this encounter
--- OUTSIDE RECORDS SUMMARY | 2024-11-18 10:20 | XMS_ITS | Encounter Summary ---
Author Organization [facility] Address [address] [facility] [place] [address] Care Team Providers Care Trucker Hand Name Role Phone Alice Polo DO Primary Care Provider Alice Polo DO Unavailable Encounter Details Date Type Department Care Team (Late st Contact Info) Description 08/07/2023 Orders Only [facility] [place] [facility] [address] [facility] [address] [place] [address] Jordyn Schroeder, CRISTEL [address] [place] [id number] Social History Tobacco Use Types Packs/Day Years [...] 02/10/2025 2:15 PM EST Office Visit [facility] [facility] [address] [place] [address] Paul Disla DO [address] [place] [address] documented as of this encounter Procedures Procedure Name Priority Date/Time Associated Diagnosis Comments XR CERVICAL SPINE COMPLETE 4-5 VIEWS Routine 08/07/2023 10:08 AM EDT documented in this encounter Results * XR cervical spine complete 4 to 5 views (08/07/2023 10:08 AM EDT) Anatomical Region Laterality Modality Spine, C-spine Radiographic Frances ging Jordyn Schroeder LEAD FURNACE OPERATOR IMG XR PROCEDURES Final Result documented in this encounter Visit Diagnoses Not on filedocumented in this encounter Care Teams Trucker Hand Relationship Specialty Start Date End Date Alice Polo DO [address] [place] [address] PCP - General Internal Medicine 07/30/22 Alice Polo DO [address] [place] [address] PCP - [facility] 12/23/23 documented as of this encounter
--- OUTSIDE RECORDS SUMMARY | 2024-11-18 10:20 | XMS_ITS | Encounter Summary ---
Author Organization [facility] Address [address] [facility] [place] [address] Care Team Providers Care Material Planning Analyst Name Role Phone Alice Polo DO Primary Care Provider Alice Polo DO Unavailable [phone] Encounter Details Date Type Department Care Team (Late Contact Info) Description 09/04/2022 Orders Only [facility] [address] [facility] [address] [place] [address] Provider, MD Lucien [address] [place] [address] Social History Tobacco Use Types Packs/Day [...] Description 02/10/2025 2:15 PM EST Office Visit [facility] [place] [facility] [address] [facility] [address] [place] [address] Paul Disla DO [address] [place] [address] documented as of this encounter Procedures Procedure [...] on filedocumented in this encounter Care Teams Material Planning Analyst Relationship Specialty Start Date End Date Alice Polo DO [address] [place] [address] PCP - General Internal Medicine 07/30/22 Alice Polo DO [address] [place] [address] PCP - [facility] 12/23/23 documented as of this encounter
--- OUTSIDE RECORDS SUMMARY | 2024-11-18 10:20 | XMS_ITS | Encounter Summary ---
Author Organization [facility] Address [address] [place] [address] Care Team Providers Care Detention Officer Name Role Phone Luna-Alice Mccabe DO Primary Care Provider Encounter Details Date Type Department Care Team (Late st Contact Info) Description 10/12/2024 Abstract [facility] [address] [place] [phone] Sesar Rothman, DPM FACFAS [address] [facility] [place] [address] Social History Tobacco Use Types Packs/Day Years [...] [facility]ILLARREAL [address] [place] [address] Paul Disla DO [address] [place] [address] documented as of this encounter Visit Diagnoses Not on filedocumented in this encounter Care Teams Detention Officer Relationship Specialty Start Date End Date Alice Polo DO [address] [place] [address] PCP - General Internal Medicine 07/30/22 documented as of this encounter
--- OUTSIDE RECORDS SUMMARY | 2024-11-18 10:20 | XMS_ITS | Encounter Summary ---
Author Organization [facility] Address [address] [facility] [place] [address] Care Team Providers Care Inspector Raw Quartz Name Role Phone Alice Polo DO Primary Care Provider Alice Polo DO Unavailable [phone] Encounter Details Date Type Department Care Team (Late st Contact Info) Description 09/08/2023 Orders Only [facility] [place] [facility] [address] [facility] [address] [place] [address] A, Unknown Practice [address] [place], [place] [address] Social History Tobacco Use Types Packs/Day Years [...] VILLARREAL [address] [place] [address] Paul Disla, [address] [place] [address] documented as of this encounter Procedures Procedure [...] on filedocumented in this encounter Care Teams Inspector Raw Quartz Relationship Specialty Start Date End Date Alice Polo DO [address] [place] [address] PCP - General Internal Medicine 07/30/22 Alice Polo DO [address] [place] [address] [facility] documented as of this encounter
--- OUTSIDE RECORDS SUMMARY | 2024-11-18 10:20 | XMS_ITS | Clinical Summary ---
Author Organization [facility] Address [address] [place] [address] Care Team Providers Care Javascript Software Engineer Name Role Phone Alice Polo DO Primary Care Provider Allergies Active Allergy Reactions Criticality Noted Date [...] at bedtime Active estradiol (Estrace) 0.5 MG tabletIndication s:Postmenopausal HRT (hormone replacement therapy) Take 1 tablet (0.5 mg) by mouth Daily 90 tablet 3 4 02/09/20 25 Active clobetasol (Temovate) 0.05 % creamIndications :Lichen sclerosus Apply topically 2 (two) times a day 30 g 2 4 Active citalopram (CeleXA) 10 MG tabletIndication s:Anxiety, generalized Take 1 tablet (10 mg) by mouth Daily With 20mg to equal 30mg daily 90 tablet 3 4 02/09/20 25 Active citalopram (CeleXA) 20 MG tabletIndication s:Anxiety, generalized TAKE 1 TABLET BY MOUTH IN THE MORNING 90 tablet 5 Active fluconazole (Diflucan) 150 MG tabletIndication s:Vulvovaginal Candidiasis 1 tab now-repeat in 4-7 days if needed. 2 tablet Active Active Problems Problem Noted Date Diagnosed Date [...] 165#/BMI=32.22). 04/24/2023- weight down to 146# 05/13/2024 HC=068.4# Assessment & Plan (05/13/2024 10:49 PM EST): [...] symptoms . Postmenopausal Depression, major, in remission Overview (04/27/2023): Prescribed citalopram Assessment & Plan [...] (04/27/2023): Prescribed estradiol 0.5 mg daily by FIRST CALENDER WORKER/Dr Disla Encounters Date Type Department Care Team Description 10/12/2024 Abstract [facility] [address] [place] [address] Dolce, Sesar R, DPM FACFAS 10/11/2024 Abstract [facility] [address] [place] [address] Dolce, Sesar R, DPM FACFAS 10/06/2024 9:30 AM EDT [facility] [address] [place] [address] Adry Yepez, WOOD FINISHER APPRENTICE Acute pain of right shoulder (Primary Dx); Pain of right upper arm; Non-recurrent acute suppurative otitis media of right ear without spontaneous rupture of tympanic membrane 10/06/2024 Travel 10/05/2024 Travel 09/22/2024 10:05 AM EDT [facility] [address] [place] [address] Didier Merino DO Acute bronchitis, unspecified organism (Primary Dx); Non-recurrent acute serous otitis media of right ear; Cough, unspecified type 09/22/2024 Travel 09/16/2024 1:40 PM EDT Office Visit [facility] [address] [place] [address] Dolce, Sesar R, DPM FACFAS Metatarsal deformity, right (Primary Dx); Santana neuroma, right 09/16/2024 Bamboo flowsheet [facility] [address] [place] [address] Dolce, Sesar R, DPM FACFAS 09/02/2024 1:30 PM EDT Office Visit [facility] [address] [place] [address] Dolce, Sesar R, DPM FACFAS Metatarsal deformity, right (Primary Dx); Santana neuroma, right; Pain in right toe(s); Santana's neuroma, left 09/02/2024 Telephone [facility] [place] [facility] [address] [place] [address] Paul Disla DO 08/30/2024 Abstract [facility] [address] [place] [address] Dolce, Sesar R, DPM FACFAS 08/19/2024 3:40 PM EDT Clinical Support [facility] [address] [place] [address] Dolce, Sesar R, DPM FACFAS Metatarsal deformity, right (Primary Dx); Santana neuroma, right 08/19/2024 Bamboo flowsheet [facility] [address] [place] [address] Dolce, Sesar R, DPM FACFAS from Last 3 Months Immunizations Immunization Administration Dates Next Due Influenza, Injectable, MDCK, preservative free 12/08/2023,02/09/2018 Influenza, injectable, MDCK, preservative free, quadrivalent 12/25/2022 Influenza, injectable, MDCK, quadrivalent 2021 Influenza, injectable, quadr ivalent, preservative free 12/13/2020,01/10/2020,01/18/2015 Influenza, seasonal, injecta ble, preservative free 11/22/2018 Influenza, seasonal, intrade rmal, preservative free 04/15/2017,01/08/2016 Novel [id number], preservative-free 01/28 RSV, recombinant, protein mendoza bunit RSVpreF, adjuvant reconstitu, 120mcg/0.5mL, PF (Arexvy) 12/25/2022 Tdap 06/29/2015 Zoster, Recombinant 05/28/2021,02/07/2021 Family History Medical History Relation Name Comments Atrial fibrillation Brother Ronni Davenport Coronary artery disease Brother Ronni Davenport Depression Brother Ronni Sarabiatt Severe Depressi on Heart failure Brother Ronni Davenport CHF No Known Problems Daughter Healthy Alcohol abuse Father KEN DAVENPORT Asthma Father KEN DAVENPORT Basal cell carcinoma Father KEN DAVENPORT brain tumor Father KEN SARABIATT benign brain tu mor with shunt due to hydrocephalus Depression Mother Michela Davenport,Ken Davenport(father), Ronni Davenport (b Hyperthyroidism Mother Michela Davenport,Ken Davenport(father), Ronni Davenport (b Osteoarthritis Mother Michela Davenport,Ken Davenport(father), Ronni Davenport (b Osteoporosis Mother Michela Davenport,Ken Davenport(father), Ronni Davenport (b Stroke Mother Michela Davenport,Ken Davenport(father), Ronni Davenport (b Heart attack Paternal Grandfather Acute M I Ulcerative colitis Son Melanoma Neg Hx Relation Name Status Comments Brother Ronni Davenport 1 brother Daughter Alive 1 daughter Father KEN DAVENPORT Alive Mother Michela Davenport,Ken Davenport(father), Ronni Davenport (b Alive Paternal Grandfather in 30's Son Alive 2 sons Social History Tobacco Use Types Packs/Day Years Used Date Smoking Tobacco: Former Cigarettes Q uit: 03/24/2012 Smokeless Tobacco: Never Tobacco Cessation:Counseling Given: Yes Alcohol Use Standard Drinks/Week Comments Yes 2 [...] Sign Reading Time Taken Comments Blood Pressure 122/78 10/06/2024 9:55 AM EDT Pulse 60 10/06/2024 9:55 AM EDT Temperature 36.2 C (97.1 F) 09/22/2024 10:06 AM EDT Respiratory Rate 16 10/06/2024 9:55 AM EDT Oxygen Saturation 98% 10/06/2024 9:55 AM EDT Inhaled Oxygen Concentration - - Weight 63.9 kg (140 lb 14 oz) 09/22/2024 10:06 A M EDT Height 152.4 cm (5') 09/16/2024 1:35 PM EDT Body Mass Index 27.51 09/16/2024 1:35 PM EDT Plan of Treatment Upcoming Encounters Date Type Department Care Team (Late st Contact Info) Description 02/10/2025 2:15 PM EST Office Visit [facility] [address] [place] [address] Paul Disla DO [address] [place] [address] Health Maintenance Due Date Last Done Comments CT Colonography 1962 FIT-DNA 1962 FIT 1962 FOBT 1962 Sigmoidoscopy 1962 Influenza Vaccine (#1) 2024 4, 02/01/2023, 12/25/2022, Additional history exists Mammogram 02/09/2025 02/10/2024, 04/2022, 12/06/2021, Additional history exists Colonoscopy 12/29/2030 12/29/2020, 10/31/2015, 06/23 Colorectal Cancer Screening 12/29/2030 Procedures Procedure Name Priority Date/Time Associated Diagnosis Comments RAPID COVID 19 ANTIGEN Routine 5 10:31 AM EDT Cough, unspecified type BI MAMMOGRAM SCREENING TOMOSYNTHESIS BILATERAL Routine 02/10/2024 4:17 PM EST Encounter for screening mammogram for malignant neoplasm of breast COLONOSCOPY Routine 12/29/2020 12:00 PM EDT from Last 3 Months or Most Recently Relevant to Health Maintenance Results * RAPID COVID 19 ANTIGEN (09/22/2024 10:31 AM EDT) COVID 19 RESULT OP neg Negative Nasal 09/22/2024 10:3 1 AM EDT Didier Merino DO POINT OF CARE TEST ENTER/ED IT ORDERABLES Final Result * Bilateral screening mammogram with tomosynthesis (02/10/2024 [...] Narrative 12/29/2020 12:00 PM EDT PERFORMED AT [facility] LOCATION:[id number] No mucosal abnormalities, but random bxs done Procedure Note CONVERSION, GENERIC - 08/07/2022 PERFORMED AT [facility] LOCATION:[id number] No mucosal abnormalities, but random bxs done Alice Polo DO ENDOSCOPY PROCEDURE ORD ERABLES Final Result from Last 3 Months or Most Recently Relevant to Health Maintenance Insurance [employer] Care Teams Javascript Software Engineer Relationship Specialty Start Date End Date Alice Polo DO [address] [place] [address] PCP - General Internal Medicine 07/30/22
--- OUTSIDE RECORDS SUMMARY | 2024-11-18 10:20 | XMS_ITS | Encounter Summary ---
Author Organization [facility] Address [address] [place] [address] Care Team Providers Care Message Broker Developer Name Role Phone Alice Polo DO Primary Care Provider Alice Polo DO Unavailable [phone] Encounter Details Date Type Department Care Team (Late st Contact Info) Description 08/12/2024 Abstract [facility] [address] [place] [address] Sesar Rothman, DPM FACFAS [address] [facility] [address] [place] [address] Social History Tobacco Use Types Packs/Day Years [...] Description 02/10/2025 2:15 PM EST Office Visit [facility] [address] [place] [address] Paul Disla DO [address] [place] [address] documented as of this encounter Visit Diagnoses Not on filedocumented in this encounter Care Teams Message Broker Developer Relationship Specialty Start Date End Date Alice Polo DO [address] [place] [address] PCP - General Internal Medicine 07/30/22 Alice Polo DO [address] [place] [address] PCP - [facility] 12/23/23 documented as of this encounter
--- OUTSIDE RECORDS SUMMARY | 2024-11-18 10:20 | XMS_ITS | Encounter Summary ---
Author Organization [facility] Address [address] [place] [address] Care Team Providers Care Back Shoe Operator Name Role Phone Alice Polo DO Primary Care Provider Alice Polo DO Unavailable [phone] Encounter Details Date Type Department Care Team (Late st Contact Info) Description 08/30/2024 Abstract [facility] [address] [place] [address] Sesar Rothman, DPM FACFAS [address] [facility] [address] Social History Tobacco Use Types Packs/Day Years [...] VILLARREAL [address] [place] [address] Paul Disla DO [address] [place] [address] documented as of this encounter Visit Diagnoses Not on filedocumented in this encounter Care Teams Back Shoe Operator Relationship Specialty Start Date End Date Alice Polo DO [address] [place] [address] PCP - General Internal Medicine 07/30/22 Alice Polo DO [address] [place] [address] PCP - [facility] 12/23/23 documented as of this encounter
--- OUTSIDE RECORDS SUMMARY | 2024-11-18 10:35 | XMS_ITS | CCD ---
Author Organization [facility] Care Team Providers Care Yarn Salvager Name Role Phone Ken Ortiz Unavailable DO Alice Polo Primary Care Provider DO Ken Ortiz Attending Provider TOMMIE Heller Emergency Provider [phone] DO Alice Polo Primary Care Provider [phone] DO Oswaldo Deleon Emergency Provider DO Alice Polo Attending Provider [phone] Dr. Alice Polo Primary Care U [facility] Luna-Dr. Alice Ferrer Primary Care [facility] Primary Care Unavailable COREA ., DR ARNAV Martínez Attending Unavailable COREA ., DR ARNAV Martínez Admitting Unavailable COREA ., DR ARNAV Martínez Consulting Unavailable [facility] Primary Care Unavailable MAHMOOD ., JONI Consulting Unavailable COREA ., DR ARNAV Martínez Attending Unavailable COREA ., DR ARNAV Martínez Admitting Unavailable [facility] Primary Care Unavailable MAHMOOD ., JONI Consulting Unavailable COREA ., DR ARNAV Martínez Attending Unavailable COREA ., DR ARNAV Martínez Admitting Unavailable [facility] Primary Care Unavailable LAKSHMIPATHY ., NARENDRANATH Admitting [place] vailable LAKSHMIPATHY ., NARENDRANATH Attending [place] vailable [facility] Care Unavailable COREA ., DR ARNAV Martínez [...] Unavailable LUNA EMERY, ALICE Primary Care Unavailable CRISOSTOMO, ROLAN Consulting Unavailable LUNA EMERY, ALICE Primary Care [...] Unavailable LUNA EMERY, ALICE Primary Care Unavailable Jeremy-Eliot, Alice Primary Care Provider DO Oswaldo Deleon Emergency Provider [phone] DO Alice Polo Attending Provider DO Alice Polo Referring Provider MD Ken Mendez Attending Provider [phone] Edison Monroe Unavailable DO Alice Polo Primary Care Provider MD Edison Monroe Attending Provider [phone] CRISTEL Perez Attending Provider [phone] Gabe Gonzalez Unavailable Alice Polo DO Primary Care Provider Jeremy-DO Eliot Alice Primary Care Provider MD Ken Mendez Attending Provider [phone] Alice Polo DO D Unavailable Susy Polo DOra D Unavailable [place] DO, Alice Primary Care Provider Johnny Tejada MD Attending Provider Jase YOU, Louis Harrison Attending Unavailable LUNA-EMERY, ALICE D Attending Unavailab le LUNA-EMERY, ALICE D Referring Unavailab le DOLCE, SIGIFREDO R Attending Unavailable DOLCE, SIGIFREDO R Attending Unavailable DOLCE, SIGIFREDO R Attending Unavailable DOLCE, SIGIFREDO R Attending Unavailable DIDIER MERINO Attending Unavailable VISCI, ALMA Thakur Attending Unavailable VISCI, ALMA Thakur Attending Unavailable VISCI, ALMA Thakur Referring Unavailable LUNA-ALICE FERRER Referring Unavailab le DIDION, ADRY L Attending Unavailable DIDION, ADRY L Referring Unavailable DIDION, ADRY L Attending Unavailable [place] DO, Alice Primary Care Provider Christopher Lin DO Attending Provider Johnny Tejada Attending Unavailable Johnny Tejada Admitting Unavailable Luna-[place], Alice Primary Care Unavailable Christopher Lin Attending Unavailable Christopher Lin Admitting Unavailable Luna-[place], Alice Primary [facility] [place] Unavailable Christopher Lin Attending Unavailable Christopher Lin Admitting Unavailable Luna-[place], Alice Primary [facility] [place] Unavailable Allergies Allergy Classification Reported Allergen(s) Allergy Type Date of Onset Reaction(s) Facility (1 source) Sulfonamides (Antibiotic) Drug allergy (disorder) [facility] Repository (2 sources) Sulfonamides (Antibiotic); Translations: [Sulfa (Sulfonamide Antibiotics)] Allergy to substance 3 [facility] (20 sources) Sulfonamides (Antibiotic) Drug Allergy 3 Hives, Rash [facility] (17 sources) celecoxib Drug Allergy 5 Other [facility] Work Phone: Medications Current Medications Medication Drug Class(es) Dates Sig (Normalized) Sig (Original) amoxicillin 875 mg / clavulanate 125 mg oral tablet (3 sources) Penicillin-class Antibacterial Start: 09-02-2024 End: 09-12-2024 take 1 tablet by mouth in the morning amoxicillin-clav ulanate (Augmentin) 875-125 MG tablet Indications: Acute recurrent frontal sinusitis Take 1 tablet (875 mg) by mouth in the morning and 1 tablet (875 mg) before bedtime. Do all this for 10 days. 20 tablet 09/02/2024 09/12/2024 Active baclofen 10 mg oral tablet (20 sources) gamma-Aminobutyric Acid-ergic Agonist Start: 11-25-2020 baclofen (Liores al) 5 MG tablet Take 5 mg by mouth as needed at bedtime Active Baclofen Active ciprofloxacin 3 mg/ml / dexamethasone 1 mg/ml otic suspension (2 sources) Corticosteroid, Quinolone Antimicrobial Start: 10-06-2024 End: 10-13-2024 ciprofloxacin-dexAMETHasone (CiproDEX) otic suspension Indications: Non-recurrent acute suppurative otitis media of right ear without spontaneous rupture of tympanic membrane Administer 4 drops into affected ear(s) in the morning and 4 drops before bedtime. Do all this for 7 days. 7.5 mL 10/06/2024 10/13/2024 Active citalopram 20 mg oral tablet (20 sources) Serotonin Reuptake Inhibitor Start: 07-26-2024 Start: 02-09-2024 End: 02-08-2025 take 1 tablet by mouth once daily citalopram (CeleXA) 10 MG tablet Indications: Anxiety, generalized Take 1 tablet (10 mg) by [...] take 1 tablet by mouth once daily Citalopram 20 mg tablet Discontinued 20 MG PO Daily September 03, 2022 12:00am July 26, 2024 9:05am Start: 04-20-2018 End: 09-03-2022 take 2 tablets by mouth once daily Citalopram (Celexa) 10 mg Tablet Discontinued 20 MG PO Daily April 20, 2018 1:00am September 03, 2022 12:15pm clobetasol propionate 0.5 mg/ml topical cream (20 sources) Corticosteroid Start: 02-09-2024 clobetasol (Te movate) 0.05 % cream Indications: Lichen sclerosus Apply topically 2 (two) times a day 30 g 2 02/09/2024 Active End: 02-09-2024 clobetasol (Temovate) 0.05 % cream Apply topically 2 (two) times a day. 02/09/2024 Discontinued (Reorder) estradiol 1 mg oral tablet (20 sources) Estrogen Start: 07-26-2024 take 0.5 mg by mouth once daily Start: 12-11-2022 End: 02-08-2025 take 1 tablet [...] 2024 9:05am take 0.5 tablet by m outh once daily Estradiol 0.5 MG 1/2 TABLET Orally DAILY Active fluticasone (20 sources) Corticosteroid Start: 07-11-2023 Start: 07-11-2023 fluticasone pr opionate (Flonase) Active [...] each nostril in the morning. 02/01/2023 Active meloxicam 15 mg oral tablet (1 source) Nonsteroidal Anti-inflammatory Drug Start: 10-25-2024 take 1 tablet by mouth once daily rifAXIMin 550 mg oral tablet (1 source) [...] hours as needed for pain Hydrocodone-Acetami nophen ([place]) 5-325 mg tablet Discontinued 1 - 2 TAB PO EVERY 4-6 HOURS as needed for Pain 50 December 10, 2018 December 10, 2018 10:44am Start: 12-10-2018 End: 12-10-2018 take 1 tablet by mouth every four to six hours as needed for pain Hydrocodone-Acetaminophen ([place]) 5-325 mg tablet Discontinued 1 - 2 TAB PO EVERY 4-6 HOURS as needed for Pain 50 December 10, 2018 December 10, 2018 10:44am Start: 12-10-2018 End: 12-10-2018 take 1 tablet by mouth every four to six hours as needed for pain Hydrocodone-Acetaminophen ([place]) 5-325 mg tablet Discontinued 1 - 2 TAB PO EVERY 4-6 HOURS as needed for Pain 50 December 10, 2018 December 10, 2018 10:44am Start: 12-10-2018 End: 12-10-2018 take 1 tablet by mouth every four to six hours as needed for pain Hydrocodone-Acetaminophen ([place]) 5-325 mg tablet Discontinued 1 - 2 TAB PO EVERY 4-6 HOURS as needed for Pain 50 December 10, 2018 December 10, 2018 10:44am Start: 12-10-2018 End: 12-10-2018 take 1 tablet by mouth every four to six hours as needed for pain Hydrocodone-Acetaminophen ([place]) 5-325 mg tablet Discontinued 1 - 2 TAB PO EVERY 4-6 HOURS as needed for Pain 50 December 10, 2018 December 10, 2018 10:44am Start: 12-10-2018 End: 12-10-2018 take 1 tablet by mouth every four to six hours Hydrocodone-Acetaminophen ([place]) 5-325 mg tablet Discontinued 1 - 2 TAB PO EVERY 4-6 HOURS 50 7 December 10, 2018 December 10, 2018 10:44am Start: 12-10-2018 End: 12-10-2018 take 1 tablet by mouth every four to six hours Hydrocodone-Acetaminophen ([place]) 5-325 mg tablet Discontinued 1 - 2 TAB PO EVERY 4-6 HOURS 50 7 December 10, 2018 December 10, 2018 10:44am Start: 12-10-2018 End: 12-10-2018 take 1 tablet by mouth every four to six hours Hydrocodone-Acetaminophen ([place]) 5-325 mg tablet Discontinued 1 - 2 TAB PO EVERY 4-6 HOURS 50 7 December 10, 2018 December 10, 2018 10:44am Start: 12-10-2018 End: 12-10-2018 take 1 tablet by mouth every four to six hours Hydrocodone-Acetaminophen ([place]) 5-325 mg tablet Discontinued 1 - 2 TAB PO EVERY 4-6 HOURS 50 7 December 10, 2018 December 10, 2018 10:44am Start: 12-10-2018 End: 12-10-2018 take 1 tablet by mouth every four to six hours Hydrocodone-Acetaminophen ([place]) 5-325 mg tablet Discontinued 1 - 2 TAB PO EVERY 4-6 HOURS 50 7 December 10, 2018 December 10, 2018 10:44am Start: 12-10-2018 End: 12-10-2018 take 1 tablet by mouth every four to six hours Hydrocodone-Acetaminophen ([place]) 5-325 mg tablet Discontinued 1 - 2 TAB PO EVERY 4-6 HOURS 50 7 December 10, 2018 December 10, 2018 9:44am Start: 12-10-2018 End: 12-10-2018 take 1 tablet by mouth every four to six hours Hydrocodone-Acetaminophen ([place]) 5-325 mg tablet Discontinued 1 - 2 TAB PO EVERY 4-6 HOURS 50 7 December 10, 2018 December 10, 2018 9:44am Start: 12-10-2018 End: 12-10-2018 take 1 tablet by mouth every four to six hours Hydrocodone-Acetaminophen ([place]) 5-325 mg tablet Discontinued 1 - 2 TAB PO EVERY 4-6 HOURS 50 7 December 10, 2018 December 10, 2018 10:44am Start: 04-27-2018 End: 12-10-2018 take 1 tablet by mouth every four to six hours as needed for pain Hydrocodone-Acetaminophen ([place]) 5-325 mg tablet Discontinued 1 - 2 TAB PO EVERY 4-6 HOURS as needed for Pain 50 April 27, 2018 December 10, 2018 10:43am acetaminophen 325 mg / oxyCODONE hydrochloride 5 mg oral tablet (13 sources) Opioid Agonist Start: 11-09-2021 End: 05-02-2022 take 1 tablet by mouth every six hours as needed for pain Oxycodone-Acetaminophen (Percocet) 5-325 mg tablet Discontinued 1 TAB PO Q6H as needed for pain 10 3 November 09, 2021 May 02, 2022 8:17pm [id number] 200 actuat albuterol 0.09 mg/actuat metered dose [...] (Therapy completed) amoxicillin 500 mg oral capsule (13 sources) Penicillin-class Antibacterial Start: 11-09-2021 End: 05-02-2022 take 1 capsule by mouth three times daily Amoxicillin 500 mg capsule Discontinued 500 MG PO Three times daily November 09, 2021 12:00am May 02, 2022 8:16pm Budesonide-Formot jailyn (17 sources) Corticosteroid, beta2-Adrenergic Agonist Start: 12-10-2018 End: [...] day Not-Taking celecoxib 200 mg oral capsule (12 sources) Nonsteroidal Anti-inflammatory Drug Start: 07-11-2023 End: 07-26-2024 take 1 capsule by mouth once daily Celecoxib (Celebrex) 200 mg capsule Discontinued 200 MG PO Daily July 11, 2023 12:00am July 26, 2024 9:04am [place] 1 capsule by [place] [...] e dicyclomine hydrochloride 20 mg oral tablet (13 sources) Anticholinergic Start: 11-25-2020 End: 11-09-2021 take 1 tablet by mouth three times daily Dicyclomine 20 mg tablet Discontinued 20 MG PO Three times daily November 25, 2020 12:00am November 09, 2021 1:23pm doxycycline hyclate 100 mg oral capsule (20 sources) Tetracycline-class Drug Start: 09-22-2024 End: 10-02-2024 doxycycline (Vibramycin) 100 MG capsule Indications: Acute bronchitis, unspecified organism Take 1 capsule (100 mg) by mouth in the morning and 1 capsule (100 mg) before bedtime. Do all this for 10 days. Take with at least 8 ounces (large glass) of water, do not lie down for 30 minutes after. 20 capsule 09/22/2024 10/02/2024 Start: 02-16-2024 End: 02-26-2024 doxycycline (Vibramycin) 100 [...] Active Start: 05-26-2018 take 1 capsule by [facility] every twelve hours Doxycycline Hyclate 100 MG 1 capsule Orally every 12 hrs for 7 days May, Not-Taking Start: 04-27-2018 End: 12-10-2018 take 1 tablet by mouth twice daily Doxycycline Hyclate 100 mg tablet Discontinued 100 MG PO Twice daily 10 December 10, 2018 12:00am December 10, 2018 10:44am fluconazole 150 mg oral tablet (18 sources) Azole Antifungal Start: 09-02-2024 End: 09-24-2024 take 1 tablet by mouth once daily fluconazole (Diflucan) 150 MG tablet Indications: Acute bronchitis, unspecified organism Take 1 tablet (150 mg) by mouth Daily for 2 doses 2 tablet 09/22/2024 09/24/2024 Start: 02-16-2024 End: 02-17-2024 fluconazole (Diflucan) 150 M G tablet Indications: Side effect of medication Take [...] if needed. 2 tablet 0 05/08/2023 Active gabapentin 300 mg oral capsule (17 sources) Anti-epileptic Agent Start: 04-20-2018 End: 12-10-2018 [...] omeprazole 40 mg delayed release oral capsule (17 sources) Proton Pump Inhibitor Start: 04-20-2018 End: 11-09-2021 take 1 capsule by mouth once daily Omeprazole 40 mg Capsule,Delayed Release(Dr/Ec) Discontinued 40 MG PO Daily April 20, 2018 1:00am November 09, 2021 1:23pm pantoprazole 40 mg delayed release oral tablet (20 sources) Proton Pump Inhibitor Start: 10-11-2021 End: 07-26-2024 take 1 tablet by mouth twice daily Pantoprazole 40 mg tablet,delayed release (DR/EC) Discontinued 40 MG PO Twice daily 180 90 July 11, 2023 10:29am July 26, 2024 2:02pm Start: 10-11-2021 End: 09-03-2022 take 1 tablet by mouth once daily Pantoprazole 40 mg tablet,delayed release (DR/EC) Discontinued 40 MG PO Daily November 09, 2021 12:00am September 03, 2022 1:20pm phentermine hydrochloride 37.5 mg oral tablet (20 [...] 06/07/2023 Active take 1 capsule by mo [facility] every twenty-four hours Adipex-P 37.5 MG 1 tablet Orally Once a day Not-Taking promethazine hydrochloride 25 mg oral tablet (13 sources) Phenothiazine Start: 11-24-2019 End: 11-25-2020 take [...] 1:23pm Start: 11-03-2015 [facility] Sucralfate 1 GM 1 [...] pain; Translations: [Unspecified abdominal pain] 11-25-2020 Episodic Acute bronchitis (2 sources) Acute bronchitis; Translations: [Acute bronchitis, unspecified] 09-22-2024 Episodic Anxiety disorders (5 sources) Generalized anxiety disorder; Translations: [Generalized anxiety disorder] 02-09-2024 Chronic Asthma (20 sources) Exercise-induced asthma; Translations: [Exercise induced bronchospasm] Onset: 4 04-27-2023 Chronic Cardiac dysrhythmias (12 sources) Palpitations; Translations: [Palpitations] 05-02-2022 Episodic Complications of surgical procedures or medical care (8 sources) Drug therapy finding; Translations: [Unspecified adverse effect of drug or medicament, initial encounter] 02-16-2024 Episodic Disorders of teeth and jaw (13 sources) Dental abscess; Translations: [Periapical abscess without sinus] 11-09-2021 Episodic Esophageal disorders (20 sources) Gastroesophageal reflux disease; Translations: [Gastro-esophageal reflux disease without esophagitis] Onset: 1 Resolved: 2 Chronic Headache; including migraine (13 sources) Headache; Translations: [Headache] 11-24-2019 Episodic Menopausal disorders (20 sources) Drug therapy status; Translations: [Hormone replacement therapy] 04-27-2023 Episodic Miscellaneous mental health disorders (1 source) Aerophagy; 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 Mood disorders (20 sources) Major depression in remission; Translations: [Major depressive disorder, single episode, in full remission] 04-27-2023 Chronic Mycoses (2 sources) Mycosis; Translations: [Candidiasis, unspecified] 05-08-2023 Episodic Osteoarthritis (20 sources) Localized, primary osteoarthritis of the wrist; Translations: [Primary osteoarthritis, left wrist] Onset: 3 Chronic Other acquired deformities (7 sources) Deformity of metatarsal; Translations: [Unspecified acquired deformity of right lower leg] 08-05-2024 Episodic Other connective tissue disease (5 sources) Trochanteric bursitis, right hip; Translations: [TROCHANTERIC BURSITIS RIGHT HIP] Onset: 2 Episodic Other connective tissue disease (4 sources) Pain of toe of right foot; Translations: [Pain in right toe(s)] 08-05-2024 Episodic Other connective tissue disease (4 sources) Pain of right upper arm; Translations: [Pain in right upper arm] 10-06-2024 Episodic Other gastrointestinal disorders (19 sources) Irritable bowel syndrome; Translations: [Mixed irritable [...] and abdomen] Episodic Other lower respiratory disease (8 sources) Cough; Translations: [Cough] 09-22-2024 Episodic Other lower respiratory disease (2 sources) [...] Onset: 3 Chronic Other nervous system disorders (7 sources) Mortons neuroma of right foot; Translations: [Lesion of plantar nerve, right lower limb] 08-05-2024 Chronic Other nervous system disorders (2 sources) Mortons neuroma of left foot; Translations: [Lesion of plantar nerve, left lower limb] 09-02-2024 Chronic Other non-traumatic joint disorders (5 sources) Pain in left hip; Translations: [PAIN IN LEFT HIP] Onset: 3 Episodic Other non-traumatic joint disorders (5 sources) Pain in right shoulder; Translations: [Pain in joint, shoulder region] Onset: 5 10-06-2024 Episodic Other nutritional; endocrine; and metabolic disorders (5 sources) Body mass index 30+ - obesity; Translations: [Body mass index (BMI) 32.0-32.9, adult] 05-13-2024 Chronic Other nutritional; endocrine; and metabolic disorders (20 sources) Obese class I; Translations: [Obesity, unspecified] Onset: 3 04-27-2023 Chronic Other nutritional; endocrine; and metabolic disorders (12 sources) Overweight in adulthood with body mass [...] disease (6 sources) Hoarse; Translations: [Dysphonia] Episodic Other upper respiratory infections (1 source) Acute recurrent frontal sinusitis; Translations: [Acute frontal sinusitis] 09-02-2024 Episodic Otitis media and related conditions (4 sources) Acute suppurative otitis media without spontaneous rupture of ear drum; Translations: [Acute suppurative otitis media without spontaneous rupture of ear drum, right ear] 10-06-2024 Episodic Residual codes; unclassified (4 sources) Sleep apnea; Translations: [Sleep apnea, unspecified] 11-18-2023 Chronic Residual codes; unclassified (13 sources) Obstructive sleep apnea syndrome; Translations: [Obstructive sleep apnea (adult) (pediatric)] 07-31-2023 Chronic Residual codes; unclassified (2 sources) Idiopathic sleep related nonobstructive alveolar hypoventilation; Translations: [Idiopathic sleep related non-obstructive alveolar hypoventilation] 07-31-2023 Chronic Residual codes; unclassified (2 sources) Obstructive sleep apnea (adult) (pediatric); Translations: [Obstructive sleep apnea (adult)(pediatric)] 07-31-2023 Chronic Residual codes; unclassified (20 sources) Postmenopausal state; Translations: [Asymptomatic menopausal state] [...] [Pain in thoracic spine] Onset: 2 Episodic Sprains and strains (5 sources) Strain of muscle(s) and tendon(s) of the rotator cuff of right shoulder, initial encounter; Translations: [Strain of tendon of right rotator cuff] Onset: 5 10-25-2024 Episodic Unclassified (1 source) LOW BACK PAIN, [...] distension (gaseous) Onset: 2 Resolved: 2 Episodic Unclassified (2 sources) Acute pain of right shoulder 10-06-2024 Results Test Name Value Interpretation Reference Range Facility X-ray reportOrdered By: Isaiah Kwan on 10-25-2024 Study report [facility] [address] [place] [address] XRay Report Signed Patient: Giselle Georges MR#: [id number] : 1960 Acct:[id number] Age/Sex: 64 / F ADM Date: 5 Loc: [facility] – [place] Room: Type: [facility] Attending Dr: Christopher Lin DO Copies to: Christopher Lin DO~ Ordering Provider: Christopher Lin DO Date of Service: 10/25/24 XR/XR shoulder RT min 2V*: M25.511 - Pain in right shoulder XR shoulder RT min 2V* 10/25/2024 9:40 AM SIGNS AND SYMPTOMS: Right shoulder pain PROTOCOL: Frontal, Grashey, scapular Y views and axillary views of the right shoulder COMPARISON: None FINDINGS: Mild hypertrophic changes are noted in the acromioclavicular joint. The glenohumeral joint is preserved. There is no fracture or dislocation. Mild subcortical cystic changes noted along with subcortical sclerosis of the greatertuberosity of the humeral head suspicious for underlying rotator cuff pathology. Visualized right hemithorax is grossly intact. XR/XR shoulder RT min 2V* IMPRESSION: No fracture or dislocation. Degenerative changes are noted in the right shoulder with findings suspicious for underlying rotator cuff pathology. Impression dictated by: Isaiah Kwan M.D. 10/25/2024 11:16 AM Dictation Location: [place] [address] Transcribed By: JAE 10/25/24 1116 Dictated By: Isaiah Kwan II, MD 10/25/241114 Signed By: 10/25/24 1116 [facility] Work Phone: XR shoulder RT min 2V*on XR shoulder RT min 2V* [facility] [address] [place] [address] XRay Report Signed Patient: Giselle Georges MR#: [id number] : 1960 Acct:[id number] Age/Sex: 64 / F ADM Date: 10/25/24 Loc: [facility] – [place] Room: Type: [facility] Attending Dr: Christopher Lin DO Copies to: Christopher Lin DO Ordering Provider: Christopher Lin DO Date of Service: 10/25/24 XR/XR shoulder RT min 2V*: M25.511 - Pain in right shoulder XR shoulder RT min 2V* 10/25/2024 9:40 AM SIGNS AND SYMPTOMS: Right shoulder pain PROTOCOL: Frontal, Grashey, scapular Y views and axillary views of the right shoulder COMPARISON: None FINDINGS: Mild hypertrophic changes are noted in the acromioclavicular joint. The glenohumeral joint is preserved. There is no fracture or dislocation. Mild subcortical cystic changes noted along with subcortical sclerosis of the greater tuberosity of the humeral head suspicious for underlying rotator cuff pathology. Visualized right hemithorax is grossly intact. XR/XR shoulder RT min 2V* IMPRESSION: No fracture or dislocation. Degenerative changes are noted in the right shoulder with findings suspicious for underlying rotator cuff pathology. Impression dictated by: Isaiah Kwan M.D. 10/25/2024 11:16 AM Dictation Location: [place] [address] Transcribed By: [facility] 10/25/24 1116 Dictated By: Isaiah Kwan II, MD 10/25/24 1115 Signed By: 10/25/24 1116 Normal [facility] Laboratory - Microbiology an d Antimicrobial susceptibilityOrdered By: Lore Ramirez on 09-22-2024 SARS-CoV-2 (COVID-19) RNA JORGE+probe Ql (Unsp spec) Negative Negative [facility] No Panel InformationOrdered By: Lore Ramirez on 09-22-2024 Interpretation and review of laboratory results Normal [facility] Alanine aminotransferase [En zymatic activity/volume] in Serum or PlasmaOrdered By: Johnny Tejada on 06-28-2024 ALT [Catalytic activity/Vol] Alanine aminotransferase [Enzymatic activity/volume] in Serum or Plasma 7-52 [facility] Albumin [Mass/volume] in Ser um or Plasma by Bromocresol green (BCG) dye binding methoOrdered By: Johnny Tejada on 06-28-2024 Albumin BCG dye [Mass/Vol] Albumin [Mass/volume] in Serum or Plasma by Bromocresol green (BCG) dye binding metho 3.5-5.7 [facility] Alkaline phosphatase [Enzyma tic activity/volume] in Serum or PlasmaOrdered By: Johnny Tejada on 06-28-2024 ALP [Catalytic activity/Vol] Alkaline phosphatase [Enzymatic activity/volume] in Serum or Plasma 34-104 [facility] Aspartate aminotransferase [ Enzymatic activity/volume] in Serum or PlasmaOrdered By: Johnny Tejada on 06-28-2024 AST [Catalytic activity/Vol] Aspartate aminotransferase [Enzymatic activity/volume] in Serum or Plasma 13-39 [facility] Basophils Auto (Bld) [#/Vol] Ordered By: Johnny Tejada on 06-28-2024 Basophils (Bld) [#/Vol] Automated basophil count 0.0-0.2 [facility] Basophils/100 WBC Auto (Bld) Ordered By: Johnny Tejada on 06-28-2024 Basophils/100 WBC (Bld) Automated basophil % . [facility] Bilirubin.total [Mass/volume ] in Serum or PlasmaOrdered By: Johnny Tejada on 06-28-2024 Bilirubin [Mass/Vol] Bilirubin.total [Mass/volume] in Serum or Plasma 0.3-1.0 [facility] Calcium [Mass/volume] in Ser um or PlasmaOrdered By: Johnny Tejada on 06-28-2024 Calcium [Mass/Vol] Calcium [Mass/volume ] in Serum or Plasma 8.6-10.3 [facility] Carbon dioxide, total [Moles /volume] in Serum or PlasmaOrdered By: Johnny Tejada on 06-28-2024 CO2 [Moles/Vol] Carbon dioxide, tota l [Moles/volume] in Serum or Plasma High 21.0-31.0 [facility] Chloride [Moles/volume] in S simba or PlasmaOrdered By: Johnny Tejada on 06-28-2024 Chloride [Moles/Vol] Chloride [Moles/vol ume] in Serum or Plasma 98-107 [facility] Complete Blood Count Auto Di ffon 06-28-2024 Basophils (Bld) [#/Vol] 0.0 10*3/uL Normal 0.0-0.2 [facility] Comment on above: Result Comment: PERF ORMED BY: [place] [address] PATHOLOGIST CDC ASSOCIATE CALEB BARNETT M.D. Performed By: #### C MP, CBC #### [address] Basophils/100 WBC (Bld) 0.7 % Normal . T gaurav [facility] Comment on above: Performed By: #### C MP, CBC #### [address] Eosinophils (Bld) [#/Vol] 0.3 10*3/uL Normal 0.0-0.45 [facility] Comment on above: Performed By: #### C MP, CBC #### [address] Eosinophils/100 WBC (Bld) 5.3 % Normal . [facility] Comment on above: Performed By: #### C MP, CBC #### [address] Erythrocyte distribution width (RBC) [Ratio] 12.7 % Normal 11.9-15.3 [facility] Comment on above: Performed By: #### C MP, CBC #### [address] Hematocrit (Bld) [Volume fraction] 41.8 % Normal 34.0-46.4 [facility] Comment on above: Performed By: #### C MP, CBC #### [address] Hemoglobin (Bld) [Mass/Vol] 14.5 g/dL Normal 11.8-15.4 [facility] Comment on above: Performed By: #### C MP, CBC #### [facility] [address] [place] [address] [place] Lymphocytes (Bld) [#/Vol] 1.3 10*3/uL Normal 1.00-4.8 [facility] Comment on above: Performed By: #### C MP, CBC #### [address] Lymphocytes/100 WBC (Bld) 26.8 % Normal . [facility] Comment on above: Performed By: #### C MP, CBC #### [address] MCH (RBC) [Entitic mass] 30.2 pg Normal 24.7-34.3 [facility] Comment on above: Performed By: #### C MP, CBC #### [address] MCV (RBC) [Entitic vol] 86.8 fL Normal 80-100 [facility] Comment on above: Performed By: #### C MP, CBC #### [address] Mean Corpuscular HGB Conc 34.7 g/dL Normal 32.0-35.0 [facility] Comment on above: Performed By: #### C MP, CBC #### [place] [address] [place] Monocytes (Bld) [#/Vol] 0.5 10*3/uL Normal 0.0-0.8 [facility] Comment on above: Performed By: #### C MP, CBC #### [place] [address] [place] Monocytes/100 WBC (Bld) 9.5 % Normal . [facility] Comment on above: Performed By: #### C MP, CBC #### [address] Neutrophils (Bld) [#/Vol] 2.8 10*3/uL Normal 1.8-7.7 [facility] Comment on above: Performed By: #### C MP, CBC #### [address] Neutrophils/100 WBC (Bld) 57.7 % Normal . [facility] Comment on above: Performed By: #### C MP, CBC #### [address] NRBC% 0.1 /100{WBC} Normal 0-0.5 [facility] Comment on above: Performed By: #### C MP, CBC #### [address] Platelet mean volume (Bld) [Entitic vol] 8.9 fL Normal 6.3-10.7 [facility] Comment on above: Performed By: #### C MP, CBC #### [address] Platelets (Bld) [#/Vol] 251 10*3/uL Normal 150-450 [facility] Comment on above: Performed By: #### C MP, CBC #### [address] RBC (Bld) [#/Vol] 4.82 10*6/uL Normal 3.60-5.00 [facility] Comment on above: Performed By: #### C MP, CBC #### [address] WBC (Bld) [#/Vol] 4.9 10*3/uL Normal 3.8-11.6 [facility] Comment on above: Performed By: #### C MP, CBC #### [address] Comprehensive Metabolic Pane howie 06-28-2024 Albumin [Mass/Vol] 4.4 g/dL Normal 3.5-5.7 [facility] Comment on above: Performed By: #### C MP, CBC #### [address] Albumin/Globulin [Mass ratio] 1.8 {ratio} Normal [facility] Comment on above: Performed By: #### C MP, CBC #### [address] ALP [Catalytic activity/Vol] 54 U/L Normal 34-104 [facility] Comment on above: Result Comment: PERF ORMED BY: [place] [address] PATHOLOGIST CDC ASSOCIATE CALEB BARNETT M.D. Performed By: #### C MP, CBC #### [address] ALT [Catalytic activity/Vol] 17 U/L Normal 7-52 [facility] Comment on above: Performed By: #### C MP, CBC #### [address] Anion gap [Moles/Vol] 11.0 mmol/L Normal 6.0-15.0 [facility] Comment on above: Performed By: #### C MP, CBC #### [address] AST [Catalytic activity/Vol] 18 U/L Normal 13-39 [facility] Comment on above: Performed By: #### C MP, CBC #### [address] Bilirubin [Mass/Vol] 0.5 mg/dL Normal 0.3-1.0 [facility] Comment on above: Performed By: #### C MP, CBC #### [address] Calcium [Mass/Vol] 10.0 mg/dL Normal 8.6-10.3 [facility] Comment on above: Performed By: #### C MP, CBC #### [place] [address] [place] Chloride [Moles/Vol] 99 mmol/L Normal 98-107 [facility] Comment on above: Performed By: #### C MP, CBC #### [place] [address] [place] CO2 [Moles/Vol] 31.6 mmol/L High 21.0-31.0 [facility] Comment on above: Performed By: #### C MP, CBC #### [address] Creatinine [Mass/Vol] 0.76 mg/dL Normal 0.60-1.20 [facility] Comment on above: Performed By: #### C MP, CBC #### [address] GFR/1.73 sq M.predicted MDRD (S/P/Bld) [Vol rate/Area] mL/min/{1.73_m2} Normal [facility] Comment on above: Performed By: #### C MP, CBC #### [address] Globulin (S) [Mass/Vol] 2.4 g/dL Normal T he [facility] Comment on above: Performed By: #### C MP, CBC #### [address] Glucose [Mass/Vol] 86 mg/dL Normal 70-100 [facility] Comment on above: Result Comment: [facility] Glucose Reference Range is dependent on time and content of last meal. Glucose of more than 200 mg/dL in a nonstressed, ambulatory subject supports the diagnosis of Diabetes Mellitus. ADA recommended reference range Performed By: #### C MP, CBC #### [address] Potassium [Moles/Vol] 4.6 mmol/L Normal 3.5-5.1 [facility] Comment on above: Performed By: #### C MP, CBC #### [address] Protein [Mass/Vol] 6.8 g/dL Normal 6.4-8.9 [facility] Comment on above: Performed By: #### C MP, CBC #### [address] Sodium [Moles/Vol] 137 mmol/L Normal 136-145 [facility] Comment on above: Performed By: #### C MP, CBC #### [facility] [address] Urea nitrogen [Mass/Vol] 15 mg/dL Normal 7-25 [facility] Comment on above: Performed By: #### C MP, CBC #### [facility] [address] Creatinine [Mass/volume] in Serum or PlasmaOrdered By: Johnny Tejada on 06-28-2024 Creatinine [Mass/Vol] Creatinine [Mass/v olume] in Serum or Plasma 0.60-1.20 [facility] Eosinophils Auto (Bld) [#/Vo l]Ordered By: Johnny Tejada on 06-28-2024 Eosinophils (Bld) [#/Vol] Automated eosinophil count 0.0-0.45 [facility] Eosinophils/100 WBC Auto (Bl d)Ordered By: Johnny Tejada on 06-28-2024 Eosinophils/100 WBC (Bld) Automated eosinophil % . [facility] Erythrocyte distribution wid th Auto (RBC) [Ratio]Ordered By: Johnny Tejada on 06-28-2024 Erythrocyte distribution width (RBC) [Ratio] Erythrocyte distribution width [Ratio] by Automated count 11.9-15.3 [facility] Globulin Calc (S) [Mass/Vol] Ordered By: Johnny Tejada on 06-28-2024 Globulin (S) [Mass/Vol] Serum globulin m easurement by calculation (mass/volume) [facility] Glucose [Mass/volume] in Ser um or PlasmaOrdered By: Johnny Tejada on 06-28-2024 Glucose [Mass/Vol] Glucose [Mass/volume ] in Serum or Plasma 70-100 [facility] Comment on above: ADA recommended refe rence rangeRandom Glucose Reference Range is dependent on time and content of last meal. Glucose of more than 200 mg/dL in a nonstressed, ambulatory subject supports the diagnosis of Diabetes Mellitus. Hematocrit Auto (Bld) [Volum e fraction]Ordered By: Johnny Tejada on 06-28-2024 Hematocrit (Bld) [Volume fraction] Hematocrit [Volume Fraction] of Blood by Automated count 34.0-46.4 [facility] Hemoglobin [Mass/volume] in BloodOrdered By: Johnny Tejada on 06-28-2024 Hemoglobin (Bld) [Mass/Vol] Hemoglobin [Mass/volume] in Blood 11.8-15.4 [facility] Leukocytes [#/volume] correc nikhil for nucleated erythrocytes in Blood by Automated counOrdered By: Johnny Tejada on 06-28-2024 WBC corrected for nucl RBC Auto (Bld) [#/Vol] Leukocytes [#/volume] corrected for nucleated erythrocytes in Blood by Automated coun 3.8-11.6 [facility] Lymphocytes Auto (Bld) [#/Vo l]Ordered By: Johnny Tejada on 06-28-2024 Lymphocytes (Bld) [#/Vol] Lymphocytes [#/volume] in Blood by Automated count 1.00-4.8 [facility] Lymphocytes/100 WBC Auto (Bl d)Ordered By: Johnny Tejada on 06-28-2024 Lymphocytes/100 WBC (Bld) Lymphocytes/100 leukocytes in Blood by Automated count . [facility] MCH Auto (RBC) [Entitic mass ]Ordered By: Johnny Tejada on 06-28-2024 MCH (RBC) [Entitic mass] MCH [Entitic mass] by Automated count 24.7-34.3 [facility] MCHC Auto (RBC) [Mass/Vol]Or dered By: Johnny Tejada on 06-28-2024 MCHC (RBC) [Mass/Vol] MCHC [Mass/volume] by Automated count 32.0-35.0 [facility] MCV Auto (RBC) [Entitic vol] Ordered By: Johnny Tejada on 06-28-2024 MCV (RBC) [Entitic vol] MCV [Entitic vol ume] by Automated count 80-100 [facility] Monocytes Auto (Bld) [#/Vol] Ordered By: Johnny Tejada on 06-28-2024 Monocytes (Bld) [#/Vol] Automated blood monocyte count 0.0-0.8 [facility] Monocytes/100 WBC Auto (Bld) Ordered By: Johnny Tejada on 06-28-2024 Monocytes/100 WBC (Bld) Automated monocyte % . [facility] Neutrophils Auto (Bld) [#/Vo l]Ordered By: Johnny Tejada on 06-28-2024 Neutrophils (Bld) [#/Vol] Neutrophils [#/volume] in Blood by Automated count 1.8-7.7 [facility] Neutrophils/100 WBC Auto (Bl d)Ordered By: Johnny Tejada on 06-28-2024 Neutrophils/100 WBC (Bld) Automated neutrophil % . [facility] No Panel InformationOrdered By: Johnny Tejada on 06-28-2024 Estimated GFR (CKD-EPI) > 60.0 mL/Min [facility] Creatinine Clearance (Chem N/A [facility] Nucleated erythrocytes [Pres ence] in Blood by Automated countOrdered By: Johnny Tejada on 06-28-2024 Nucleated RBC Auto Ql (Bld) Nucleated erythrocytes [Presence] in Blood by Automated count 0-0.5 [facility] Platelet mean volume Auto (B ld) [Entitic vol]Ordered By: Johnny Tejada on 06-28-2024 Platelet mean volume (Bld) [Entitic vol] Platelet mean volume [Entitic volume] in Blood by Automated count 6.3-10.7 [facility] Platelets Auto (Bld) [#/Vol] Ordered By: Johnny Tejada on 06-28-2024 Platelets (Bld) [#/Vol] Platelets [#/vol ume] in Blood by Automated count 150-450 [facility] Potassium [Moles/volume] in Serum or PlasmaOrdered By: Johnny Tejada on 06-28-2024 Potassium [Moles/Vol] Potassium [Moles/v olume] in Serum or Plasma 3.5-5.1 [facility] Protein [Mass/volume] in Ser um or PlasmaOrdered By: Johnny Tejada on 06-28-2024 Protein [Mass/Vol] Protein [Mass/volume ] in Serum or Plasma 6.4-8.9 [facility] RBC Auto (Bld) [#/Vol]Ordere d By: Johnny Tejada on 06-28-2024 RBC (Bld) [#/Vol] Erythrocytes [#/volu me] in Blood by Automated count 3.60-5.00 [facility] Serum or plasma albumin/glob ulin mass ratioOrdered By: Johnny Tejada on 06-28-2024 Albumin/Globulin [Mass ratio] Serum or plasma albumin/globulin mass ratio [facility] Serum or plasma anion gap de terminationOrdered By: Johnny Terrell on 06-28-2024 Anion gap [Moles/Vol] Serum or plasma an ion gap determination 6.0-15.0 [facility] Sodium [Moles/volume] in Ser um or PlasmaOrdered By: Johnny Tejada on 06-28-2024 Sodium [Moles/Vol] Sodium [Moles/volume ] in Serum or Plasma 136-145 [facility] Urea nitrogen [Mass/volume] in Serum or PlasmaOrdered By: Johnny Tejada on 06-28-2024 Urea nitrogen [Mass/Vol] Urea nitrogen [Mass/volume] in Serum or Plasma 7-25 [facility] WBC Auto (Bld) [#/Vol]Ordere d By: Johnny Tejada on 06-28-2024 WBC (Bld) [#/Vol] Leukocytes [#/volume ] in Blood by Automated count 3.8-11.6 [facility] XR CHEST 2 VIEWSon XR CHEST 2 VIEWS EXAM: XR Chest, [...] report is generated using voice recognition reporting ([employer]). On occasion [employer] erroneously drops words from the report or [...] aPTT Coag (PPP) [Time] 30.0 s 25.1-36.5 [facility] Basophils Auto (Bld) [#/Vol] Ordered By: Oswaldo Deleon on 05-02-2022 Basophils (Bld) [#/Vol] 0.0 10*3/uL 0.0-0.2 [facility] Basophils/100 WBC Auto (Bld) Ordered By: Oswaldo Deleon on 05-02-2022 Basophils/100 WBC (Bld) 0.7 % . [facility] Body fluid albumin measureme nt (mass/volume)Ordered By: Oswaldo Deleon on 05-02-2022 Albumin (Body fld) [Mass/Vol] 4.0 g/dL 3.2-5.5 [facility] Creatine kinase [Enzymatic a ctivity/volume] in Serum or PlasmaOrdered By: Oswaldo Deleon on 05-02-2022 CK [Catalytic activity/Vol] 50 U/L 22-269 [facility] Creatinine and Glomerular fi ltration rate.predicted panel (S/P/Bld)Ordered By: Oswaldo Deleon on 05-02-2022 Creatinine [Mass/Vol] 0.79 mg/dL 0.44-1.03 [facility] Eosinophils Auto (Bld) [#/Vo l]Ordered By: Oswaldo Deleon on 05-02-2022 Eosinophils (Bld) [#/Vol] 0.4 10*3/uL 0.0-0.45 [facility] Eosinophils/100 WBC Auto (Bl d)Ordered By: Oswaldo Deleon on 05-02-2022 Eosinophils/100 WBC (Bld) 4.9 % . [facility] Erythrocyte distribution wid th Auto (RBC) [Ratio]Ordered By: Oswaldo Deleon on 05-02-2022 Erythrocyte distribution width (RBC) [Ratio] 13.0 % 11.9-15.3 [facility] Estimated glomerular filtrat ion rate (GFR) non- AmericanOrdered By: Oswaldo Deleon on 05-02-2022 GFR/1.73 sq M.predicted among non-blacks MDRD (S/P/Bld) [Vol rate/Area] > 60 mL/Min [facility] Globulin Calc (S) [Mass/Vol] Ordered By: Oswaldo Deleon on 05-02-2022 Globulin (S) [Mass/Vol] 2.9 g/dL [facility] Hematocrit Auto (Bld) [Volum e fraction]Ordered By: Oswaldo Deleon on 05-02-2022 Hematocrit (Bld) [Volume fraction] 43.7 % 34.0-46.4 [facility] Hemoglobin [Mass/volume] in BloodOrdered By: Oswaldo Deleon on 05-02-2022 Hemoglobin (Bld) [Mass/Vol] 14.7 g/dL 11.8-15.4 [facility] Laboratory - Chemistry and C hemistry - challengeOrdered By: Oswaldo Deleon on 05-02-2022 Magnesium [Mass/Vol] 2.0 mg/dL 1.6-2.6 [facility] Laboratory - CoagulationOrde red By: Oswaldo Deleon on 05-02-2022 PT Coag (PPP) [Time] 11.6 s 9.0-12.9 [facility] Leukocytes [#/volume] correc nikhil for nucleated erythrocytes in Blood by Automated counOrdered By: Oswaldo Deleon on 05-02-2022 WBC corrected for nucl RBC Auto (Bld) [#/Vol] 7.4 10*3/uL 3.8-11.6 [facility] Lymphocytes Auto (Bld) [#/Vo l]Ordered By: Oswaldo Deleon on 05-02-2022 Lymphocytes (Bld) [#/Vol] 1.6 10*3/uL 1.00-4.8 [facility] Lymphocytes/100 WBC Auto (Bl d)Ordered By: Oswaldo Deleon on 05-02-2022 Lymphocytes/100 WBC (Bld) 22.0 % . [facility] MCH Auto (RBC) [Entitic mass ]Ordered By: Oswaldo Deleon on 05-02-2022 MCH (RBC) [Entitic mass] 30.0 pg 24.7-34.3 [facility] MCHC Auto (RBC) [Mass/Vol]Or dered By: Oswaldo Deleon on 05-02-2022 MCHC (RBC) [Mass/Vol] 33.7 g/dL 32.0-35.0 [facility] MCV Auto (RBC) [Entitic vol] Ordered By: Oswaldo Deloen on 05-02-2022 MCV (RBC) [Entitic vol] 88.9 fL 80-100 [facility] Monocyte distribution width [Entitic volume] in Blood by AutomatedOrdered By: Oswaldo Deleon on 05-02-2022 Monocyte distribution width Auto (Bld) [Entitic vol] 18.10 % 0.00-20.00 [facility] Monocytes Auto (Bld) [#/Vol] Ordered By: Oswaldo Deleon on 05-02-2022 Monocytes (Bld) [#/Vol] 0.8 10*3/uL 0.0-0.8 [facility] Monocytes/100 WBC Auto (Bld) Ordered By: Oswaldo Deleon on 05-02-2022 Monocytes/100 WBC (Bld) 10.2 % . [facility] Neutrophils Auto (Bld) [#/Vo l]Ordered By: Oswaldo Deleon on 05-02-2022 Neutrophils (Bld) [#/Vol] 4.6 10*3/uL 1.8-7.7 [facility] Neutrophils/100 WBC Auto (Bl d)Ordered By: Oswaldo Deleon on 05-02-2022 Neutrophils/100 WBC (Bld) 62.2 % . [facility] No Panel InformationOrdered By: Oswaldo Deleon on 05-02-2022 D-Dimer Quantitative (PE/DVT) < 200 ng/mL 0-243 [facility] Comment on above: The reference [...] conditions. Estimated GFR () > 60 mL/Min [facility] Comment on above: GFR estimated refere nce range: According to KDOQI guidelines, <60 ml/min/1.73m2 is sufficient to diagnose a patient with chronic kidney disease. Pharmacy Creatinine Clearance (Chem 67.96 [facility] Nucleated erythrocytes [Pres ence] in Blood by Automated countOrdered By: Oswaldo Deleon on 05-02-2022 Nucleated RBC Auto Ql (Bld) 0.1 /100{WBC} 0-0.5 [facility] Platelet mean volume Auto (B ld) [Entitic vol]Ordered By: Oswaldo Deleon on 05-02-2022 Platelet mean volume (Bld) [Entitic vol] 8.7 fL 6.3-10.7 [facility] Platelet poor plasma interna tional normalized ratio (INR) by coagulation assay (relatOrdered By: Oswaldo Deleon on 05-02-2022 INR Coag (PPP) [Relative time] 1.0 {INR} [facility] Comment on above: INR Therapeutic [...] 05-02-2022 Platelets (Bld) [#/Vol] 271 10*3/uL 150-450 [facility] Protein [Mass/volume] in Ser um or PlasmaOrdered By: Oswaldo Deleon on 05-02-2022 Protein [Mass/Vol] 6.9 g/dL 6.1-7.9 [facility] RBC Auto (Bld) [#/Vol]Ordere d By: Oswaldo Deleon on 05-02-2022 RBC (Bld) [#/Vol] 4.92 10*6/uL 3.60-5.00 [facility] Serum or plasma alanine reyna otransferase measurement without P-5'-P (enzymatic activiOrdered By: Oswaldo Deleon on 05-02-2022 ALT No additional P-5'-P [Catalytic activity/Vol] 21 U/L 10-60 [facility] Serum or plasma albumin/glob ulin mass ratioOrdered By: Oswaldo Deleon on 05-02-2022 Albumin/Globulin [Mass ratio] 1.4 {ratio} [facility] Serum or plasma alkaline raphael sphatase measurement (enzymatic activity/volume)Ordered By: Oswaldo Deleon on 05-02-2022 ALP [Catalytic activity/Vol] 56 U/L 32-92 [facility] Serum or plasma anion gap de terminationOrdered By: Oswaldo Deleon on 05-02-2022 Anion gap [Moles/Vol] 11.4 mmol/L 6.0-15.0 [facility] Serum or plasma aspartate am inotransferase measurement (enzymatic activity/volume)Ordered By: Oswaldo Deleon on 05-02-2022 AST [Catalytic activity/Vol] 20 U/L 10-42 [facility] Serum or plasma calcium shellie urement (mass/volume)Ordered By: Oswaldo Deleon on 05-02-2022 Calcium [Mass/Vol] 9.4 mg/dL 8.2-10.2 [facility] Serum or plasma chloride isidro surement (moles/volume)Ordered By: Oswaldo Deleon on 05-02-2022 Chloride [Moles/Vol] 100 mmol/L 95-114 [facility] Serum or plasma creatine kin ase MB (CKMB)/total creatine kinase (CK) ratio by calculaOrdered By: Oswaldo Deleon on 05-02-2022 CK.MB Calc [Catalytic fraction] 1.8 % 0.00-2.50 [facility] Serum or plasma creatine kin ase MB measurement (mass/volume)Ordered By: Oswaldo Deleon on 05-02-2022 CK.MB [Mass/Vol] 0.9 ng/mL 0.6-6.3 [facility] Serum or plasma glucose shellie urement (mass/volume)Ordered By: Oswaldo Deleon on 05-02-2022 Glucose [Mass/Vol] 87 mg/dL 70-100 [facility] Comment on above: ADA recommended refe rence rangeRandom Glucose Reference Range is dependent on time and content of last meal. Glucose of more than 200 mg/dL in a nonstressed, ambulatory subject supports the diagnosis of Diabetes Mellitus. Serum or plasma potassium me asurement (moles/volume)Ordered By: Oswaldo Deleon on 05-02-2022 Potassium [Moles/Vol] 3.9 mmol/L 3.5-5.1 [facility] Serum or plasma sodium measu rement (moles/volume)Ordered By: Oswaldo Deleon on 05-02-2022 Sodium [Moles/Vol] 135 mmol/L 136-146 [facility] Serum or plasma total biliru bin measurement (mass/volume)Ordered By: Oswaldo Deleon on 05-02-2022 Bilirubin [Mass/Vol] 0.5 mg/dL 0.3-1.2 [facility] Serum or plasma total carbon dioxide measurement (moles/volume)Ordered By: Oswaldo Deleon on 05-02-2022 CO2 [Moles/Vol] 27.5 mmol/L 22.0-30.0 [facility] Serum or plasma urea nitroge n measurement (mass/volume)Ordered By: Oswaldo Deleon on 05-02-2022 Urea nitrogen [Mass/Vol] 21 mg/dL 9-23 [facility] Troponin I.cardiac [Mass/vol ume] in Serum or Plasma by High sensitivity methodOrdered By: Oswaldo Deleon on 05-02-2022 Troponin I.cardiac High sensitivity method [Mass/Vol] 3 pg/mL 0-15 [facility] WBC Auto (Bld) [#/Vol]Ordere d By: Oswaldo Deleon on 05-02-2022 WBC (Bld) [#/Vol] 7.4 10*3/uL 3.8-11.6 [facility] XR TSPINE MIN 4 VIEWSon 11 [...] by: GENESIS BELLO Date: 2022-02-07 15:12 Normal [facility] SCREENING MAMMOGRAM W/NUPUR, BILATERAL*on 12-06-2021 SCREENING MAMMOGRAM [...] VERY IMPORTANT TO YOUR HEALTH. THE CURRENT [place] [employer] OF [employer] AND [employer] COMPREHENSIVE [employer] NETWORK GUIDELINES RECOMMENDS ANNUAL MAMMOGRAPHY BEGINNING AT AGE 40 THIS FACILITY USES A REMINDER SYSTEM TO ENSURE ALL PATIENTS RECEIVE REMINDER NOTIFICATIONS AT THE APPROPRIATE TIME BASED ON THE RECOMMENDATIONS OF THIS EXAM. 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 Accredited by the ACR and FDA. Report reported and signed by Paulino Will on 12/06/2021 1003 Normal [facility] Basophils Auto (Bld) [#/Vol] Ordered By: Ken Ortiz on 10-04-2021 Basophils (Bld) [#/Vol] 0.0 10*3/uL 0.0-0.2 [facility] Basophils/100 WBC Auto (Bld) Ordered By: Ken Ortiz on 10-04-2021 Basophils/100 WBC (Bld) 0.7 % . [facility] Blood hemoglobin measurement (mass/volume)Ordered By: Ken Ortiz on 10-04-2021 Hemoglobin (Bld) [Mass/Vol] 14.6 g/dL 11.8-15.4 [facility] Blood leukocytes automated c ount (number/volume)Ordered By: Ken Ortiz on 10-04-2021 WBC (Bld) [#/Vol] 4.4 10*3/uL 4.5-11.0 [facility] Body fluid albumin measureme nt (mass/volume)Ordered By: Ken Ortiz on 10-04-2021 Albumin (Body fld) [Mass/Vol] 3.7 g/dL 3.2-5.5 [facility] C reactive protein [Mass/vol ume] in Serum or PlasmaOrdered By: Ken Ortiz on 10-04-2021 CRP [Mass/Vol] 0.6 mg/dL 0.0-1.0 [facility] Creatinine and Glomerular fi ltration rate.predicted panel (S/P/Bld)Ordered By: Ken Ortiz on 10-04-2021 Creatinine [Mass/Vol] 0.74 mg/dL 0.44-1.03 [facility] Elastase.pancreatic [Mass/ma ss] in StoolOrdered By: Ken Ortiz on 10-04-2021 Elastase.pancreatic (Stl) [Mass/Mass] >500 >200 [facility] Comment on above: Result Units: ug Luz st./g Severe Pancreatic Insufficiency: <100 Moderate Pancreatic Insufficiency: 100 - 200 Normal: >200 Performed at: - [facility] [id number] Insurance Broker: Lamont Young MD, Phone: [phone] Eosinophils Auto (Bld) [#/Vo l]Ordered By: Ken Ortiz on 10-04-2021 Eosinophils (Bld) [#/Vol] 0.2 10*3/uL 0.0-0.45 [facility] Eosinophils/100 WBC Auto (Bl d)Ordered By: Ken Ortiz on 10-04-2021 Eosinophils/100 WBC (Bld) 5.2 % . [facility] Erythrocyte distribution wid th Auto (RBC) [Ratio]Ordered By: Ken Ortiz on 10-04-2021 Erythrocyte distribution width (RBC) [Ratio] 13.1 % 11.9-15.3 [facility] Erythrocyte sedimentation ra te by Photometric methodOrdered By: Ken Ortzi on 10-04-2021 ESR Photometric method (Bld) [Velocity] 5 mm/hr 0-29 [facility] Estimated glomerular filtrat ion rate (GFR) non- AmericanOrdered By: Ken Ortiz on 10-04-2021 GFR/1.73 sq M.predicted among non-blacks MDRD (S/P/Bld) [Vol rate/Area] > 60 mL/Min [facility] Globulin Calc (S) [Mass/Vol] Ordered By: Ken Ortiz on 10-04-2021 Globulin (S) [Mass/Vol] 2.5 g/dL [facility] Hematocrit Auto (Bld) [Volum e fraction]Ordered By: Ken Ortiz on 10-04-2021 Hematocrit (Bld) [Volume fraction] 43.7 % 34.0-46.4 [facility] IgA [Mass/volume] in Serum o r PlasmaOrdered By: Ken Ortiz on 10-04-2021 IgA [Mass/Vol] 168 mg/dL 87-352 [facility] Comment on above: Performed at: [address] [id number] Insurance Broker: Kevin Sanders PhD, Phone: [phone] Laboratory - Hematology and Cell countsOrdered By: Ken Ortiz on 10-04-2021 Nucleated RBC/100 WBC (Bld) [Ratio] 0.0 % 0-0.5 [facility] Lymphocytes Auto (Bld) [#/Vo l]Ordered By: Ken Ortiz on 10-04-2021 Lymphocytes (Bld) [#/Vol] 1.5 10*3/uL 1.00-4.8 [facility] Lymphocytes/100 WBC Auto (Bl d)Ordered By: Ken Ortiz on 07-14-2022 Lymphocytes/100 WBC (Bld) 34.1 % . [facility] MCH Auto (RBC) [Entitic mass ]Ordered By: Ken Ortiz on 10-04-2021 MCH (RBC) [Entitic mass] 29.8 pg 24.7-34.3 [facility] MCHC Auto (RBC) [Mass/Vol]Or dered By: Ken Ortiz on 10-04-2021 MCHC (RBC) [Mass/Vol] 33.5 g/dL 32.0-35.0 [facility] MCV Auto (RBC) [Entitic vol] Ordered By: Ken Ortiz on 10-04-2021 MCV (RBC) [Entitic vol] 88.9 fL 80-100 [facility] Monocytes Auto (Bld) [#/Vol] Ordered By: Ken Ortiz on 10-04-2021 Monocytes (Bld) [#/Vol] 0.4 10*3/uL 0.0-0.8 [facility] Monocytes/100 WBC Auto (Bld) Ordered By: Ken Ortiz on 10-04-2021 Monocytes/100 WBC (Bld) 8.1 % . [facility] Neutrophils Auto (Bld) [#/Vo l]Ordered By: Ken Ortiz on 10-04-2021 Neutrophils (Bld) [#/Vol] 2.3 10*3/uL 1.8-7.7 [facility] Neutrophils/100 WBC Auto (Bl d)Ordered By: Ken Ortiz on 10-04-2021 Neutrophils/100 WBC (Bld) 51.9 % . [facility] No Panel InformationOrdered By: Ken Ortiz on 10-04-2021 Endomysial IgA Antibody Negative Negative [facility] Estimated GFR () > 60 mL/Min [facility] Comment on above: GFR estimated refere nce range: According to KDOQI guidelines, <60 ml/min/1.73m2 is sufficient to diagnose a patient with chronic kidney disease. Pharmacy Creatinine Clearance (Chem N/A [facility] Platelet mean volume Auto (B ld) [Entitic vol]Ordered By: Ken Ortiz on 10-04-2021 Platelet mean volume (Bld) [Entitic vol] 9.2 fL 6.3-10.7 [facility] Platelets Auto (Bld) [#/Vol] Ordered By: Ken Ortiz on 10-04-2021 Platelets (Bld) [#/Vol] 286 10*3/uL 150-450 [facility] Protein [Mass/volume] in Ser um or PlasmaOrdered By: Ken Ortiz on 10-04-2021 Protein [Mass/Vol] 6.2 g/dL 6.1-7.9 [facility] RBC Auto (Bld) [#/Vol]Ordere d By: Ken Ortiz on 10-04-2021 RBC (Bld) [#/Vol] 4.92 10*6/uL 3.60-5.00 [facility] Serum gliadin peptide IgA an tibody assay (units/volume)Ordered By: Ken Ortiz on 10-04-2021 Gliadin peptide IgA Qn (S) 4 units 0-19 [facility] Comment on above: Negative 0 - 19 Weak Positive 20 - 30 Moderate to Strong Positive >30 Serum gliadin peptide IgG an tibody assay (units/volume)Ordered By: Ken Ortiz on 10-04-2021 Gliadin peptide IgG Qn (S) 2 units 0-19 [facility] Comment on above: Negative 0 - 19 Weak Positive 20 - 30 Moderate to Strong Positive >30 Serum or plasma alanine reyna otransferase measurement without P-5'-P (enzymatic activiOrdered By: Ken Ortiz on 10-04-2021 ALT No additional P-5'-P [Catalytic activity/Vol] 16 U/L 10-60 [facility] Serum or plasma albumin/glob ulin mass ratioOrdered By: Ken Ortiz on 10-04-2021 Albumin/Globulin [Mass ratio] 1.5 {ratio} [facility] Serum or plasma alkaline raphael sphatase measurement (enzymatic activity/volume)Ordered By: Ken Ortiz on 10-04-2021 ALP [Catalytic activity/Vol] 55 U/L 32-92 [facility] Serum or plasma aspartate am inotransferase measurement (enzymatic activity/volume)Ordered By: Ken Ortiz on 10-04-2021 AST [Catalytic activity/Vol] 18 U/L 10-42 [facility] Serum or plasma calcium shellie urement (mass/volume)Ordered By: Ken Ortiz on 10-04-2021 Calcium [Mass/Vol] 9.7 mg/dL 8.2-10.2 [facility] Serum or plasma chloride isidro surement (moles/volume)Ordered By: Ken Ortiz on 10-04-2021 Chloride [Moles/Vol] 101 mmol/L 95-114 [facility] Serum or plasma glucose shellie urement (mass/volume)Ordered By: Ken Ortiz on 10-04-2021 Glucose [Mass/Vol] 85 mg/dL 70-100 [facility] Comment on above: ADA recommended refe rence range Random Glucose Reference Range is dependent on time and content of last meal. Glucose of more than 200 mg/dL in a nonstressed, ambulatory subject supports the diagnosis of Diabetes Mellitus. Serum or plasma potassium me asurement (moles/volume)Ordered By: Ken Ortiz on 10-04-2021 Potassium [Moles/Vol] 4.4 mmol/L 3.5-5.1 [facility] Serum or plasma sodium measu rement (moles/volume)Ordered By: Ken Ortiz on 10-04-2021 Sodium [Moles/Vol] 138 mmol/L 136-146 [facility] Serum or plasma total biliru bin measurement (mass/volume)Ordered By: Ken Ortiz on 10-04-2021 Bilirubin [Mass/Vol] 0.5 mg/dL 0.3-1.2 [facility] Serum or plasma total carbon dioxide measurement (moles/volume)Ordered By: Ken Ortiz on 10-04-2021 CO2 [Moles/Vol] 30.4 mmol/L 22.0-30.0 [facility] Serum or plasma urea nitroge n measurement (mass/volume)Ordered By: Ken Ortiz on 10-04-2021 Urea nitrogen [Mass/Vol] 13 mg/dL 9-23 [facility] Serum tissue transglutaminas e (tTG) IgA antibody assay (units/volume)Ordered By: Ken Ortiz on 10-04-2021 tTG IgA Qn (S) <2 U/mL 0-3 [facility] Comment on above: Negative 0 - 3 Weak Positive 4 - 10 Positive >10 Tissue Transglutaminase (tTG) has been identified as the endomysial antigen. Studies have demonstr- ated that endomysial IgA antibodies have over 99% specificity for gluten sensitive enteropathy. Serum tissue transglutaminas e (tTG) IgG antibody assay (units/volume)Ordered By: Ken Ortiz on 10-04-2021 tTG IgG Qn (S) <2 U/mL 0-5 [facility] Comment on above: Negative 0 - 5 Weak Positive 6 - 9 Positive >9 Vital Signs Date Time Vital Sign Value Performing Clinician Facility 10-06-2024 09:55-0400 Diastolic blood pressure 78 mm[Hg] Adry Didion [employer] INSPECT[employer] Work Phone: [facility] 10-06-2024 09:55-0400 Heart rate 60 /min Adry Didion [employer] INSPECTOR Work Phone: [facility] 10-06-2024 09:55-0400 Respiratory rate 16 /min Adry Didion [employer]AR[employer]INE INSPECTOR Work Phone: [facility] 10-06-2024 09:55-0400 SaO2% (BldA) [Mass fraction] 98 % Adry Didion [employer]AR[employer]INE INSPECTOR Work Phone: [facility] 10-06-2024 09:55-0400 Systolic blood pressure 122 mm[Hg] Adry Didion QUAR[employer]INE INSPECTOR Work Phone: [facility] 09-22-2024 10:06-0400 Body mass index (BMI) [Ratio] 27.51 kg/m2 Didier Merino DO Work Phone: [facility] 09-22-2024 10:06-0400 Body temperature 97.11 [degF] Didier Merino DO Work Phone: [facility] 09-22-2024 10:06-0400 Body weight 63.9 kg Didier Tesnargis DO Work Phone: [facility] 09-22-2024 10:06-0400 Diastolic blood pressure 78 mm[Hg] Didier Isabelanrgis DO Work Phone: [facility] 09-22-2024 10:06-0400 Heart rate 61 /min Didier Merino DO Work Phone: [facility] 09-22-2024 10:06-0400 SaO2% (BldA) [Mass fraction] 99 % Didier Merino DO Work Phone: [facility] 09-22-2024 10:06-0400 Systolic blood pressure 122 mm[Hg] Didier Merino DO Work Phone: [facility] 09-16-2024 13:35-0400 Body height 152.4 cm Sigifredo Dolce DPM FACFAS Work Phone: [facility] 09-16-2024 13:35-0400 Body mass index (BMI) [Ratio] 27.15 kg/m2 Sigifredo Dolce DPM FACFAS Work Phone: [facility] 09-16-2024 13:35-0400 Body weight 63.05 kg Sigifredo Dolce DPM FACFAS Work Phone: [facility] 09-16-2024 13:35-0400 Diastolic blood pressure 75 mm[Hg] Sigifredo Dolce DPM FACFAS Work Phone: [facility] 09-16-2024 13:35-0400 Heart rate 77 /min Sigifredo Dolce DPM FACFAS Work Phone: [facility] 09-16-2024 13:35-0400 Systolic blood pressure 121 mm[Hg] Sigifredo Dolce DPM FACFAS Work Phone: [facility] 09-02-2024 13:32-0400 Body height 152.4 cm Sigifredo Dolce DPM FACFAS Work Phone: [facility] 09-02-2024 13:32-0400 Body mass index (BMI) [Ratio] 27.15 kg/m2 Sigifredo Dolce DPM FACFAS Work Phone: [facility] 09-02-2024 13:32-0400 Body weight 63.05 kg Sigifredo Dolce DPM FACFAS Work Phone: [facility] 09-02-2024 13:32-0400 Diastolic blood pressure 76 mm[Hg] Sigifredo Dolce DPM FACFAS Work Phone: [facility] 09-02-2024 13:32-0400 Heart rate 79 /min Sigifredo Dolce DPM FACFAS Work Phone: [facility] 09-02-2024 13:32-0400 Systolic blood pressure 118 mm[Hg] Sigifredo Dolce DPM FACFAS Work Phone: [facility] 08-19-2024 16:17-0400 Body height 152.4 cm Sigifredo Dolce DPM FACFAS Work Phone: [facility] 08-19-2024 16:17-0400 Body mass index (BMI) [Ratio] 27.15 kg/m2 Sigifredo Dolce DPM FACFAS Work Phone: [facility] 08-19-2024 16:17-0400 Body weight 63.05 kg Sigifredo Dolce DPM FACFAS Work Phone: [facility] 08-19-2024 16:17-0400 Diastolic blood pressure 74 mm[Hg] Sigifredo Dolce DPM FACFAS Work Phone: [facility] 08-19-2024 16:17-0400 Heart rate 74 /min Sigifredo Dolce DPM FACFAS Work Phone: [facility] 08-19-2024 16:17-0400 Systolic blood pressure 116 mm[Hg] Sigifredo Dolce DPM FACFAS Work Phone: [facility] 08-05-2024 13:54-0400 Body height 152.4 cm Sigifredo Dolce DPM FACFAS Work Phone: [facility] 08-05-2024 13:54-0400 Body mass index (BMI) [Ratio] 27.15 kg/m2 Sigifredo Dolce DPM FACFAS Work Phone: [facility] 08-05-2024 13:54-0400 Body weight 63.05 kg Sigifredo Dolce DPM FACFAS Work Phone: [place] [address]-15-2025 13:54-0400 Diastolic blood pressure 70 mm[Hg] Sigifredo Dolce DPM FACFAS Work Phone: [facility] 08-05-2024 13:54-0400 Heart rate 78 /min Sigifredo Dolce DPM FACFAS Work Phone: [facility] 08-05-2024 13:54-0400 Systolic blood pressure 114 mm[Hg] Sigifredo Dolce DPM FACFAS Work Phone: [facility] 07-26-2024 13:56-0400 Body height 152.4 cm Alice Luna-Yazoo DO Work Phone: [facility] 07-26-2024 13:56-0400 Body mass index (BMI) [Ratio] 27.3 kg/m2 Alice Luna-Yazoo DO Work Phone: [facility] 07-26-2024 13:56-0400 Body weight 63.5 kg Alice Luna-Yazoo DO Work Phone: [facility] 07-26-2024 13:56-0400 Diastolic blood pressure 76 mm[Hg] Aliec Luna-Yazoo DO Work Phone: [facility] 07-26-2024 13:56-0400 Heart rate 69 /min Alice Luna-Yazoo DO Work Phone: [facility] 07-26-2024 13:56-0400 Systolic blood pressure 117 mm[Hg] Alice Luna-Yazoo DO Work Phone: [facility] 07-26-2024 09:05-0400 Body height 152.4 cm Alice Luna-Yazoo DO Work Phone: [facility] 07-26-2024 09:05-0400 Body mass index (BMI) [Ratio] 27.3 kg/m2 Alice Luna-Yazoo DO Work Phone: [facility] 07-26-2024 09:05-0400 Body weight 63.5 kg Alice Luna-Yazoo DO Work Phone: [facility] 07-26-2024 09:05-0400 Diastolic blood pressure 71 mm[Hg] Alice Luna-Yazoo DO Work Phone: [facility] 07-26-2024 09:05-0400 Heart rate 65 /min Alice Luna-Yazoo DO Work Phone: [facility] 07-26-2024 09:05-0400 SaO2% (BldA) [Mass fraction] 99 % Alice Luna-Yazoo DO Work Phone: [facility] 07-26-2024 09:05-0400 Systolic blood pressure 130 mm[Hg] Alice Luna-Yazoo DO Work Phone: [facility] 05-13-2024 09:46-0500 Body mass index (BMI) [Ratio] 27.22 kg/m2 Alice Luna-Yazoo DO Work Phone: [facility] 05-13-2024 09:46-0500 Body weight 63.23 kg Alice Luna-Yazoo DO Work Phone: [facility] 05-13-2024 09:46-0500 Diastolic blood pressure 70 mm[Hg] Alice Luna-Yazoo DO Work Phone: [facility] 05-13-2024 09:46-0500 Heart rate 78 /min Alice Luna-Yazoo DO Work Phone: [facility] 05-13-2024 09:46-0500 SaO2% (BldA) [Mass fraction] 99 % Alice Luna-Yazoo DO Work Phone: [facility] 05-13-2024 09:46-0500 Systolic blood pressure 114 mm[Hg] Alice Luna-Yazoo DO Work Phone: [facility] 02-16-2024 09:08-0500 Body height 152.4 cm Adry Didion QUAR[employer]INE INSPECTOR Work Phone: [facility] 02-16-2024 09:08-0500 Body mass index (BMI) [Ratio] 26.37 kg/m2 Adry Didion QUAR[employer]INE INSPECTOR Work Phone: [facility] 02-16-2024 09:08-0500 Body weight 61.24 kg Adry Didion QUAR[employer]INE INSPECTOR Work Phone: [facility] 02-16-2024 09:08-0500 Diastolic blood pressure 78 mm[Hg] Adry Didion QUARANTINE INSPECTOR Work Phone: [facility] 02-16-2024 09:08-0500 Heart rate 80 /min Adry Didion QUAR[employer]INE INSPECTOR Work Phone: [facility] 02-16-2024 09:08-0500 Respiratory rate 16 /min Adry Didion QUAR[employer]INE INSPECTOR Work Phone: [facility] 02-16-2024 09:08-0500 SaO2% (BldA) [Mass fraction] 99 % Adry Didion QUARANTINE INSPECTOR Work Phone: [facility] 02-16-2024 09:08-0500 Systolic blood pressure 128 mm[Hg] Adry Didion QUAR[employer]INE INSPECTOR Work Phone: [facility] 02-09-2024 12:56-0500 Body mass index (BMI) [Ratio] 26.37 kg/m2 Alma Visci DO Work Phone: [facility] 02-09-2024 12:56-0500 Body weight 61.24 kg Alma Visci DO Work Phone: [facility] 02-09-2024 12:56-0500 Diastolic blood pressure 72 mm[Hg] Alma Visci DO Work Phone: [facility] 02-09-2024 12:56-0500 Systolic blood pressure 122 mm[Hg] Alma Visci DO Work Phone: [facility] 11-18-2023 12:01-0400 Body mass index (BMI) [Ratio] 26.37 kg/m2 Alma Visci DO Work Phone: [facility] 11-18-2023 12:01-0400 Body weight 61.24 kg Alma Visci DO Work Phone: [facility] 11-18-2023 12:01-0400 Diastolic blood pressure 72 mm[Hg] Alma Visci DO Work Phone: [facility] 11-18-2023 12:01-0400 Systolic blood pressure 110 mm[Hg] Alma Visci DO Work Phone: [facility] 07-31-2023 08:37-0400 Body height 152.4 cm [facility] 07-31-2023 08:37-0400 Body mass index (BMI) [Ratio] 27.3 kg/m2 [facility] 07-31-2023 08:37-0400 Body weight 63.5 kg [facility] 07-31-2023 08:37-0400 Diastolic blood pressure 77 mm[Hg] [facility] 07-31-2023 08:37-0400 Heart rate 71 /min [facility] 07-31-2023 08:37-0400 SaO2% (BldA) [Mass fraction] 99 % [facility] 07-31-2023 08:37-0400 Systolic blood pressure 136 mm[Hg] [facility] 07-11-2023 10:22-0400 Body height 152.4 cm [facility] 07-11-2023 10:22-0400 Body mass index (BMI) [Ratio] 28.2 kg/m2 [facility] 07-11-2023 10:22-0400 Body weight 65.48 kg [facility] 07-11-2023 10:22-0400 Diastolic blood pressure 81 mm[Hg] [facility] 07-11-2023 10:22-0400 Heart rate 67 /min [facility] 07-11-2023 10:22-0400 Systolic blood pressure 146 mm[Hg] [facility] 05-08-2023 14:36-0500 Body height 152.4 cm Alma Visci DO Work Phone: [facility] 05-08-2023 14:36-0500 Body mass index (BMI) [Ratio] 28.32 kg/m2 Alma Visci DO Work Phone: [facility] 05-08-2023 14:36-0500 Body weight 65.77 kg Alma Visci DO Work Phone: [facility] 05-08-2023 14:36-0500 Diastolic blood pressure 84 mm[Hg] Alma Visci DO Work Phone: [facility] 05-08-2023 14:36-0500 Systolic blood pressure 124 mm[Hg] Alma Visci DO Work Phone: [facility] 04-24-2023 10:05-0500 Body mass index (BMI) [Ratio] 28.55 kg/m2 Alice Luna-Yazoo DO Work Phone: [facility] 04-24-2023 10:05-0500 Body weight 66.32 kg Alice Luna-Yazoo DO Work Phone: [facility] 04-24-2023 10:05-0500 Diastolic blood pressure 64 mm[Hg] Alice Luna-Yazoo DO Work Phone: [facility] 04-24-2023 10:05-0500 Heart rate 64 /min Alice Luna-Yazoo DO Work Phone: [facility] 04-24-2023 10:05-0500 SaO2% (BldA) [Mass fraction] 98 % Alice Luna-Yazoo DO Work Phone: [facility] 04-24-2023 10:05-0500 Systolic blood pressure 112 mm[Hg] Alice Luna-Yazoo DO Work Phone: [facility] 12-09-2022 10:00-0400 Body height 152.4 cm Gabe Gonzalez Other [facility] [employer] Other 12-09-2022 10:00-0400 Body mass index (BMI) [Ratio] 32.22 kg/m2 Gabe Gonzalez Other [facility] [employer] Other 12-09-2022 10:00-0400 Body weight 74.84 kg Gabe Gonzalez Other [employer] Other 12-09-2022 10:00-0400 Diastolic blood pressure 81 mm[Hg] Gabe Gonzalez Other [facility] [employer] Other 12-09-2022 10:00-0400 Systolic blood pressure 129 mm[Hg] Gabe Gonzalez Other [facility] [employer] Other 09-03-2022 13:50-0400 Diastolic blood pressure 79 mm[Hg] DO Alice Luna-Yazoo Work Phone: [facility] 09-03-2022 13:50-0400 Heart rate 56 /min DO Alice Luna-Yazoo Work Phone: [facility] 09-03-2022 13:50-0400 SaO2% (BldA) [Mass fraction] 100 % DO Alice Luna-Yazoo Work Phone: [facility] 09-03-2022 13:50-0400 Systolic blood pressure 125 mm[Hg] DO Alice Luna-Yazoo Work Phone: [facility] 09-03-2022 12:25-0400 Body height 152.4 cm DO Alice Luna-Yazoo Work Phone: [facility] 09-03-2022 12:25-0400 Body temperature 97.9 [degF] DO Alice Luna-Yazoo Work Phone: [facility] 09-03-2022 12:25-0400 Body weight 72.12 kg DO Alice Luna-Yazoo Work Phone: [facility] 06-13-2023 12:25-0400 Respiratory rate 16 /min DO Alice Luna-Yazoo Work Phone: [facility] 05-02-2022 20:00-0500 Diastolic blood pressure 86 mm[Hg] DO Alice Luna-Yazoo Work Phone: [facility] 05-02-2022 20:00-0500 Heart rate 66 /min DO Alice Luna-Yazoo Work Phone: [facility] 05-02-2022 20:00-0500 Respiratory rate 20 /min DO Alice Luna-Yazoo Work Phone: [facility] 05-02-2022 20:00-0500 SaO2% (BldA) [Mass fraction] 99 % DO Alice Luna-Yazoo Work Phone: [facility] 05-02-2022 20:00-0500 Systolic blood pressure 137 mm[Hg] DO Alice Luna-Yazoo Work Phone: [facility] 05-02-2022 16:29-0500 Body height 152.4 cm DO Alice Luna-Yazoo Work Phone: [facility] 05-02-2022 16:29-0500 Body temperature 97.5 [degF] DO Alice Luna-Yazoo Work Phone: [facility] 05-02-2022 16:29-0500 Body weight 72.12 kg DO Alice Luna-Yazoo Work Phone: [facility] 11-09-2021 13:34-0400 Body height 152.4 cm DO Alice Luna-Yazoo Work Phone: [facility] 11-09-2021 13:34-0400 Body temperature 98 [degF] DO Alice Luna-Yazoo Work Phone: [facility] 11-09-2021 13:34-0400 Body weight 71 kg DO Alice Luna-Yazoo Work Phone: [facility] 11-09-2021 13:34-0400 Diastolic blood pressure 80 mm[Hg] DO Alice Luna-Yazoo Work Phone: [facility] 11-09-2021 13:34-0400 Heart rate 78 /min DO Alice Luna-Yazoo Work Phone: [facility] 11-09-2021 13:34-0400 Respiratory rate 18 /min DO Alice Luna-Yazoo Work Phone: [facility] 11-09-2021 13:34-0400 SaO2% (BldA) [Mass fraction] 97 % DO Alice Luna-Yazoo Work Phone: [facility] 11-09-2021 13:34-0400 Systolic blood pressure 187 mm[Hg] DO Alice Luna-Yazoo Work Phone: [facility] 12-20-2020 14:15-0400 Body height 152.4 cm Ken Ortiz Other [facility] [employer] Other 12-20-2020 14:15-0400 Body mass index (BMI) [Ratio] 31.05 kg/m2 Ken Ortiz Other [facility] [employer] Other 12-20-2020 14:15-0400 Body weight 72.12 kg Ken Ortiz Other [facility] [employer] Other Encounters Encounter Date Encounter Type Care Provider Facility Start: 11-16-2024 ambulatory Christopher Lin Facility :[facility] Start: 10-25-2024 End: 10-25-2024 ambulatory Alice Luna-Yazoo DO Work Phone: [facility] Work Phone: Start: 10-25-2024 End: 10-25-2024 [facility] Start: 10-06-2024 End: 10-06-2024 Office outpatient visit 15 minutes Adry Alfonso [employer]INE INSPECTOR Work Phone: [facility] Comment on above: Acute pain of right shoulder (Primary Dx); Pain of right upper arm; Non-recurrent acute suppurative otitis media of right ear without spontaneous rupture of tympanic membrane Start: 10-06-2024 End: 10-06-2024 ambulatory ADRY ALFONSO Not Available Start: 09-22-2024 End: 09-22-2024 Office outpatient visit 25 minutes Didier Merino DO Work Phone: [facility] Comment on above: Acute bronchitis, un specified organism (Primary Dx); Non-recurrent acute serous otitis media of right ear; Cough, unspecified type Start: 09-22-2024 End: 09-22-2024 ambulatory DIDIER MERINO Not Available Start: 09-16-2024 End: 09-16-2024 Bamboo flowsheet Sigifredo R Dolce DPM FACFAS Work Phone: [facility] Start: 09-16-2024 End: 09-16-2024 Bamboo flowsheet Sigifredo R Dolce DPM FACFAS Work Phone: [facility] Start: 09-16-2024 End: 09-16-2024 Office outpatient visit 15 minutes Sigifredo R Dolce DPM FACFAS Work Phone: [facility] Comment on above: Metatarsal deformity , right (Primary Dx); Santana neuroma, right Start: 09-16-2024 End: 09-16-2024 ambulatory SIGIFREDO R DOLCE Not Available Start: 09-02-2024 End: 09-02-2024 Telephone encounter Alma Disla DO Work Phone: [facility] Start: 09-02-2024 End: 09-02-2024 Office outpatient visit 15 minutes Sigifredo R Dolce DPM FACFAS Work Phone: [facility] Comment on above: Metatarsal deformity , right (Primary Dx); Santana neuroma, right; Pain in right toe(s); Santana's neuroma, left Start: 09-02-2024 End: 09-02-2024 ambulatory SIGIFREDO R DOLCE Not Available Start: 08-19-2024 End: 08-19-2024 Office outpatient visit 15 minutes Sigifredo R Dolce DPM FACFAS Work Phone: [facility] Comment on above: Metatarsal deformity , right (Primary Dx); Santana neuroma, right Start: 08-19-2024 End: 08-19-2024 ambulatory SIGIFREDO R DOLCE Not Available Start: 08-19-2024 End: 08-19-2024 Bamboo flowsheet Sigifredo R Dolce DPM FACFAS Work Phone: [facility] Start: 08-19-2024 End: 08-19-2024 Bamboo flowsheet Sigifredo R Dolce DPM FACFAS Work Phone: [facility] Start: 08-09-2024 End: 08-09-2024 ambulatory Louis Laguna MD Facility:[facility] Start: 08-05-2024 End: 08-05-2024 Bamboo flowsheet Sigifredo [...] toe(s) Start: 08-05-2024 End: 08-05-2024 ambulatory SIGIFREDO R DOLCE Not Available Start: 07-26-2024 End: 07-26-2024 ambulatory Alice Polo DO Work Phone: [facility] Work Phone: Start: 07-26-2024 End: 07-26-2024 Patient encounter procedure Alice Luna-Yazoo DO Work Phone: [facility] Physician [facility] Gastro Work Phone: Start: 07-26-2024 End: 07-26-2024 ambulatory Alice Krausaver-Yazoo DO Work Phone: [facility] Work Phone: Start: 07-26-2024 End: 07-26-2024 Patient encounter procedure Alice Krausaver-Yazoo DO Work Phone: [facility] Physician [facility] Work Phone: Start: 06-28-2024 End: 06-28-2024 Patient encounter procedure Alice Krausaver-Yazoo DO Work Phone: [facility] Start: 06-28-2024 End: 06-28-2024 ambulatory Alice Krausaver-Yazoo DO Work Phone: [facility] Work Phone: Start: 05-13-2024 End: 05-13-2024 Patient encounter status Alice Baca Luna-Yazoo DO Work Phone: [facility] Work Phone: Start: 05-13-2024 End: 05-13-2024 Periodic preventive med est patient 40-64yrs Alice Baca Luna-Yazoo DO Work Phone: [facility] Comment on above: Encounter for preven tative adult health care examination (Primary Dx); Inflammatory arthritis; Class 1 obesity; Exercise-induced asthma (CMS/HCC); Depression, major, in remission (HCC) (CMS/HCC); Postmenopausal; BMI 32.0-32.9,adult; Hormone replacement therapy; Gastroesophageal reflux disease without esophagitis Start: 05-13-2024 End: 05-13-2024 ambulatory ALICE POLO Not Available Start: 02-16-2024 End: 02-16-2024 Office outpatient visit 25 minutes Adry Alfonso QUARANTINE INSPECTOR Work Phone: [facility] Comment on above: Acute cough (Primary [...] status Alma A Visci DO Work Phone: [facility] Start: 02-09-2024 End: 02-09-2024 Periodic preventive med est patient 40-64yrs Alma A Visci DO Work Phone: [facility] Comment on above: Encounter for gyneco logical examination with abnormal finding (Primary Dx); Encounter for screening mammogram for malignant neoplasm of breast; Abnormal weight gain; Postmenopausal HRT (hormone replacement therapy); Lichen sclerosus; Anxiety, generalized ([facility]/HCC) Start: 12-18-2023 End: 12-18-2023 Telephone encounter Alma A Visci DO Work Phone: [facility] Start: 11-18-2023 End: 11-18-2023 Office outpatient visit 15 minutes Alma A Visci DO Work Phone: [facility] Comment on above: Abnormal weight gain (Primary Dx); Vaginal itching; Sleep apnea, unspecified type; Primary osteoarthritis of other site; BMI 26.0-26.9,adult Start: 11-18-2023 End: 11-18-2023 ambulatory ALMA A VISCI Not Available Start: 08-27-2023 End: 08-27-2023 ambulatory DO Alice Polo Work Phone: [facility] Work Phone: Start: 08-27-2023 End: 08-27-2023 Patient encounter procedure DO Alice Polo Work Phone: [facility] Work Phone: Start: 07-31-2023 End: 07-31-2023 ambulatory [facility] Work Phone: Start: 07-31-2023 End: 07-31-2023 Patient encounter procedure [facility] Physician [facility] Work Phone: Start: 07-11-2023 End: 07-11-2023 ambulatory [facility] Work Phone: Start: 07-11-2023 End: 07-11-2023 Patient encounter procedure [facility] Physician [facility] Gastroenterology Work Phone: Start: 05-08-2023 End: 05-08-2023 Office outpatient visit 15 minutes Alma Disla DO Work Phone: [facility] Comment on above: Body mass index (BMI ) 28.0-28.9, adult; Abnormal weight gain; Yeast infection; BMI 29.0-29.9,adult Start: 04-24-2023 End: 04-24-2023 Patient encounter status Alice Baca Chasey DO Work Phone: [facility] Work Phone: Start: 04-24-2023 End: 04-24-2023 Periodic preventive med est patient 40-64yrs Alice Baca Chasey DO Work Phone: [facility] Comment on above: Encounter for preven tative adult health care examination (Primary Dx); Arthritis, lumbar spine; Depression, major, in remission (HCC) ([facility]/HCC); Gastroesophageal reflux disease without esophagitis; Postmenopausal; Hormone replacement therapy; Class 1 obesity Start: 12-09-2022 End: 12-09-2022 ambulatory Gabe Gonzalez Other [facility] Other Start: 09-18-2023 Office outpatient vi sit 15 minutes Gabe LOJA Gastroenterology Start: 09-26-2022 End: 09-26-2022 ambulatory DO Alice Luna-Yazoo Work Phone: [facility] Work Phone: Start: 09-26-2022 End: 09-26-2022 Patient encounter procedure DO Alice Luna-Yazoo Work Phone: [facility] Work Phone: Start: 09-04-2022 End: 09-04-2022 ambulatory Edison Monroe Other [facility] Other Start: 09-04-2022 Telephone encounter Edison HAHN [facility] Gastroenterology Start: 09-03-2022 End: 09-03-2022 Admission to same day surgery center DO Alice Luna-Yazoo Work Phone: [facility] Work Phone: Start: 08-29-2022 ambulatory ALICE LUNA KIRSTENY Fac ility:[facility] Start: 06-12-2022 End: 06-12-2022 ambulatory DO Alice Luna-Yazoo Work Phone: [facility] Work Phone: Start: 06-12-2022 End: 06-12-2022 Patient encounter procedure DO Alice Luna-Yazoo Work Phone: [facility] Work Phone: Start: 05-30-2022 End: 05-31-2022 ambulatory ALICE FERRER Facility: Start: 05-21-[address] Alice Polo Facility:[facility] Start: 05-14-2022 End: 05-14-2022 ambulatory ALICERA JEREMY FERRER Facility: Start: 05-10-[address] Alice Polo Facility:[id number] Start: 05-07-2022 End: 05-07-2022 ambulatory DO Alice Luna-Yazoo Work Phone: [facility] Work Phone: Start: 05-07-2022 End: 05-07-2022 Patient encounter procedure DO Alice Polo Work Phone: [facility] Work Phone: Start: 05-02-2022 End: 05-02-2022 Emergency department patient visit DO Alice Polo Work Phone: [facility] Work Phone: Start: 05-02-2022 End: 05-03-2022 ambulatory ALICE FERRER Facility:[facility] Start: 04-16-2022 End: 04-16-2022 ambulatory ALICE JEREMY FERRER Facility:[facility] Start: 02-07-2022 End: 02-08-2022 ambulatory ALICE FERRER Facility:[facility] Start: 11-15-2021 End: 11-16-2021 ambulatory JONI MAHMOOD . Facility:[facility] Start: 11-09-2021 End: 11-09-2021 Emergency department patient visit DO Alice Polo Work Phone: [facility] Start: 10-16-2021 End: 10-16-[address] ARNAV COREA . Facility:[facility] Start: 10-11-2021 End: 10-11-2021 ambulatory Ken Ortiz Other [facility] Other Start: 10-11-2021 Telephone encounter Ken Ortiz [facility] Start: 10-04-2021 End: 10-04-2021 Patient encounter procedure DO Alice Polo Work Phone: [facility] [place] Start: 10-03-2021 End: 10-03-2021 ambulatory Ken Ortiz Other [facility] Other Start: 10-03-2021 Telephone encounter Ken Ortiz [facility] Gastroenterology Start: 09-20-2021 End: 09-21-2021 ambulatory JONI MAHMOOD . Facility: Start: 02-26-2021 End: 02-26-2021 ambulatory Ken Ortiz Other [facility] [employer] Other Start: 02-26-2021 Telephone encounter Ken Ortiz [facility] Gastroenterology Start: 12-20-2020 Office outpatient vi sit 25 minutes Ken Ortiz [facility] Gastroenterology Procedures Date Procedure Procedure Detail Performing Clinician Start: 10-25-2024 Plain X-ray of right shoulder Alice Wea madhav-Yazoo DO Work Phone: Start: 09-22-2024 RAPID COVID 19 ANTIGEN Didier Merino DO Work Phone: Start: 02-10-2024 Mammography Adry Overtonsaravanan QUARANTINE INSPECTOR Work Phone: Start: 12-23-2022 Mammography Alice Ulna-Yazoo DO Work Phone: Start: 09-03-2022 Esophagogastroduodenoscopy DO Alice Luna-Yazoo Work Phone: Start: 05-02-2022 Plain chest X-ray DO Alice Luna-Yazoo Work Phone: Start: 11-09-2021 CT of facial bones without contrast DO S love Luna-Yazoo Work Phone: Start: 12-29-2020 Colonoscopy Alice Luna-Yazoo DO Work Phone: Plan of Treatment Date Care Activity Detail Author Start: 12-29-2030 Screening for malign ant neoplasm of colon [facility] Start: 02-10-2025 End: 02-10-2025 Patient encounter procedure [facility] Start: 02-09-2025 Screening for malign ant neoplasm of breast Mammogram [facility] Start: 11-22-2024 Influenza vaccination Influenza Vacc ine (#1) [facility] Start: 10-25-2024 Plain X-ray of right shoulder XR shoulder RT min 2V* [facility] Start: 10-25-2024 XR Shoulder - right Views [facility] Start: 09-16-2024 End: 09-16-2024 Patient encounter procedure [facility] Comment on above: Arrived Start: 09-02-2024 End: 09-02-2024 Patient encounter procedure 09/02/2024 1:30 PM EDT Office Visit [facility] [address] [place] [address] Dolce, Sigifredo R, DPM FACFAS [address] [facility] [place] [address] [facility] Start: 08-19-2024 End: 08-19-2024 Clinical Support 08/19/2024 3:40 PM EDT Clinical Support [facility] [address] [place] [address] Dolce, Sigifredo R, DPM FACFAS [address] [facility] [place] [address] Arrived [facility] Comment on above: Arrived Start: 08-19-2024 End: 08-19-2024 Clinical Support 08/19/2024 2:10 PM EDT Clinical Support [facility] [address] [place] [address] Dolce, Sigifredo R, DPM FACFAS [address] [facility] [place] [address] [facility] Start: 08-18-2024 End: 08-18-2024 Patient encounter procedure 08/18/2024 9:30 AM EDT Office Visit [facility] [address] [place] [address] Alice Polo, DO [address] [place] [address] [facility] Start: 08-05-2024 End: 08-05-2024 Patient encounter procedure 08/05/2024 2:00 PM EDT Office Visit [facility] [address] [place] [address] Sigifredo Rothman, DPM FACFAS [address] [place] [address] Arrived [facility] Comment on above: Arrived Start: 04-27-2024 End: 04-27-2024 Patient encounter procedure 04/27/2024 10:00 AM EST Office Visit [facility] [address] [place] [address] Alice Polo, DO [address] [place] [address] [facility] Start: 02-16-2024 End: 02-15-2025 XR Chest 2 Views [facility] Work Phone: Comment on above: Expected: 02/16/2024 , Expires: 02/15/2025 Start: 02-10-2024 End: 02-10-2024 Professional / ancillary services management 02/10/2024 4:00 PM EST Ancillary Procedure [facility] [place] [address] [place] [id number] [facility] [place] Start: 02-09-2024 End: 04-10-2025 DBT Breast - bilateral screening Bilateral screening mammogram with tomosynthesis Imaging Routine Encounter for screening mammogram for malignant neoplasm of breast Expected: 02/09/2024, Expires: 04/10/2025 [facility] Work Phone: Comment on above: Expected: 02/09/2024 , Expires: 04/10/2025 Start: 02-09-2024 End: 02-09-2024 Patient encounter procedure 02/09/2024 12:15 PM EST Office Visit [facility] [address] [place] [phone] Alma Disla, DO [address] [place] [address] [facility] Start: 12-24-2023 Screening for malign ant neoplasm of breast Mammogram [facility] Start: 11-23-2023 Influenza vaccination Influenza Vacc ine (#1) [facility] Start: 04-28-2023 End: 04-28-2023 Patient encounter procedure 04/28/2023 9:30 AM EST Office Visit [facility] [address] [place] [phone] Alma Disla, DO [address] [place] [address] BMI 29.0-29.9,adult [facility] Comment on above: BMI 29.0-29.9,adult Start: 09-03-2022 [facility] Start: 1960 Screening for malign ant neoplasm of colon [facility] Patient Education [facility] Work Phone: Patient referral [facility] Work Phone: SUPERFICIAL WOUND (HTRX) SUPERFICIAL WOUND (HTRX) Lab Routine Sebaceous cyst of finger Ordered: 02/16/2024 [facility] Comment on above: Ordered: 02/16/2024 Immunizations Immunization Date Immunization Notes Care Provider [facility] 12-08-2023 influenza, injectabl e, madin nyla canine kidney, preservative free Alice Polo DO Work Phone: [facility] 12-08-2023 influenza virus vaccine, unspecified formulation Adry Alfonso QUARANTINE INSPECTOR Work Phone: [facility] 12-25-2022 Influenza, injectabl e, Madin Nyla Canine Kidney, preservative free, quadrivalent Alma Disla DO Work Phone: [facility] 12-25-2022 RSV, recombinant, protein subunit RSVpreF, adjuvant reconstitu, 120mcg/0.5mL, PF (Arexvy) Alice Polo DO Work Phone: [facility] 12-25-2022 influenza virus vaccine, unspecified formulation Alma Visci DO Work Phone: [facility] 12-31-2021 Influenza, injectabl e, Madin Douglas Canine Kidney, quadrivalent with preservative Alma Visci DO Work Phone: [facility] 05-28-2021 zoster vaccine recombinant Alice Luna-Yazoo DO Work Phone: [facility] 02-07-2021 zoster vaccine recombinant Alice Luna-Yazoo DO Work Phone: [facility] 12-13-2020 influenza, injectabl e, quadrivalent, preservative free Alma Visci DO Work Phone: [facility] 06-29-2020 COVID-19 mRNA, Comirnaty (Pfizer) DO Alice Luna-Yazoo Work Phone: [facility] 06-09-2020 COVID-19 mRNA, Comirnaty (Pfizer) DO Alice Luna-Yazoo Work Phone: [facility] 01-10-2020 influenza, injectabl e, quadrivalent, preservative free Alma Visci DO Work Phone: [facility] 11-22-2018 influenza, seasonal, injectable, preservative free Alma Visci DO Work Phone: [facility] 02-09-2018 influenza, injectabl e, madin nyla canine kidney, preservative free Alma Visci DO Work Phone: [facility] 04-15-2017 seasonal influenza, intradermal, preservative free Alma Visci DO Work Phone: [facility] 01-08-2016 seasonal influenza, intradermal, preservative free Alma Visci DO Work Phone: [facility] 06-29-2015 tetanus toxoid, redu yoselin diphtheria toxoid, and acellular pertussis vaccine, adsorbed Alice Luna-Yazoo DO Work Phone: [facility] 01-18-2015 influenza, injectabl e, quadrivalent, preservative free Alma Visci DO Work Phone: [facility] 01-28-2009 novel [id number], preservative-free, injectable Alma Disla DO Work Phone: [facility] Payers Date Payer Category Payer Self-pay [id number] 2024 Unknown 2020 Medicaid [employer] [place] [id number] 2020-Present [address] [place] [address] [id number] 2020 Private Health Insurance [facility] MEDICAID [id number] 1962 Unknown [id number] 2.16.840.1.534416.3.579.2. 356 1962 Unknown [id number] 2.16.840.1.568979.3.579.2. 593 1962 Unknown [id number] 2.16.840.1.338055.3.579.2. 593 1962 Unknown [id number] 2.16.840.1.027009.3.579.2. 593 1962 Unknown [id number] 2.16.840.1.841218.3.579.2. 593 1962 Unknown [id number] 2.16.840.1.447145.3.579.2. 593 1962 Unknown [id number] 2.16.840.1.343725.3.579.2. 593 1962 Unknown [id number] 2.16.840.1.502048.3.579.2. 593 1962 Unknown [id number] 2.16.840.1.160578.3.579.2. 593 1962 Unknown [id number] 2.16.840.1.358479.3.579.2. 593 1962 Unknown [id number] 2.16.840.1.365587.3.579.2. 593 1962 Unknown [id number] 2.16.840.1.245393.3.579.2. 593 1962 Unknown [id number] 2.16.840.1.058695.3.579.2. 196 1962 Unknown [id number] 2.16.840.1.349440.3.579.2. 1259 1962 Unknown [id number] 2.16.840.1.608938.3.579.2. 1258 1962 Unknown [id number] 2.16.840.1.679371.3.579.2. 1259 1962 Unknown [id number] 2.16.840.1.925433.3.579.2. 1259 1962 Unknown [id number] 2.16.840.1.282647.3.579.2. 1259 1962 Unknown [id number] 2.16.840.1.409748.3.579.2. 125 1962 Unknown [id number] 2.16.840.1.632229.3.579.2. 1259 1962 Unknown [id number] 2.16.840.1.450322.3.579.2. 1259 1962 Unknown [id number] 2.16.840.1.382381.3.579.2. 1259 1962 Unknown [id number] 2.16.840.1.842574.3.579.2. 1259 1962 Unknown [id number] 2.16.840.1.947436.3.579.2. 1259 1962 Unknown [id number] 2.16.840.1.796598.3.579.2. 1259 1959 Medicaid [id number] 1959 Unknown [id number] 2.16.840.1.125172.19 Private Health Insurance [id number] Unknown Dean BC/BS [id number] Unknown HCAP/HFA/FAP Active [id number] Unknown [id number] 2.16.840.1.912285.3.579.2. 531 Unknown [id number] 2.16.840.1.025654.3.579.2. 531 Unknown [id number] 2.16.840.1.389266.3.579.2. 531 Social History Date Type Detail Facility Start: 04-24-2023 End: 05-13-2024 Sex Assigned At [facility] Work Phone: Start: 11-09-2021 Tobacco smoking stat us [facility] Never smoked tobacco (finding) [facility] Start: 1960 Sex Assigned At Female F [facility] Start: 05-02-2022 End: 09-03-2022 Tobacco smoking status RIIS Ex-smoker (finding) [facility] End: 03-24-2012 History of tobacco use Current smoker [facility] End: 03-24-2012 History of tobacco use Cigarette Smoker [facility] Start: 01-08-2023 End: 09-29-2023 Tobacco use and exposure Smokeless tobacco non-user [facility] Start: 04-27-2023 End: 09-22-2024 Alcohol intake Current drinker of alcohol (finding) [...] Gender identity Identifies as female gender (finding) [facility] Start: 05-13-2024 Alcohol Comment 1-2 drinks/2-3x a we ek [facility] Start: 06-29-2024 End: 07-26-2024 Sex Female (finding) [facility] Medical Equipment Procedure Code Equipment Code Equipment Origin al Text Equipment Identifier Dates Tendon repair Tendon/ligament bone anchor, non-bioabsorbable ([id number] [facility] Start: 12-10-2018 Goals Date Patient Goal Desired Activity /State Clinical Notes 12-20-2020 to 10-25-2024 Note Date & Type Note Facility 10-25-2024 Evaluation note Diagnosis Onset Date Resolution Strain of tendon of right rotator cuff acute October 25, 025 7:45am [facility] Work Phone: 1(204) 932-390707-16-2025 History of Present illness Narrative* Adry Alfonso, QUARANTINE INSPECTOR - 10/06/2024 9:30 AM EDT Images from the original note were not included. Subjective Patient ID: Giselle Georges (: 1960) is a 64 y.o. female who presents for Follow-up. HPI History of Present Illness The patient presents for evaluation of shoulder pain and ear pain. Approximately 6 weeks ago, she experienced a sudden onset of shoulder pain while playing pickleball. The pain was severe enough to stop her from playing. She describes the pain as a catching sensation when reaching out, which intensifies during activities such as brushing her teeth. The pain is constant throughout the day and often disrupts her sleep. She also reports radiating pain down her arm,a symptom she has not previously experienced. Despite the pain, she continues to engage in physicalactivities and has been performing range of motion exercises. She has been managing the pain with Motrin and ibuprofen. She has seen Dr. Bearden in the past for hand and wrist surgery? She reports an improvement in her ear condition, although she still experiences some pain. She was advised to seek medical attention if her bronchitis did not fully resolve. She suspects that her current symptoms may be related to this unresolved issue. She completed a 10-day course of doxycycline,which caused gastrointestinal upset. She continues to take Claritin-D twice daily as recommended byher doctor. She also reports intermittent voice loss but does not feel ill. Her is currently unwell and is being evaluated by a doctor today. She was prescribed amoxicillin for 10 days on 09/02/2024 for a sinus infection. On 09/22/2024, she sought care at an urgent care facility due to a persistent cough and ear pain. She was diagnosed with bronchitis, which was believed to have originated from her sinus infection. She was also informed that she had bulging tympanic membranes. Current Outpatient Medications Medication Instructions baclofen (LIORESAL) 5 mg, Nightly PRN ciprofloxacin-dexAMETHasone (CiproDEX) otic suspension 4 drops, Otic, 2 times daily citalopram (CELEXA) 10 mg, Oral, Daily, With 20mg to equal 30mg daily citalopram (CELEXA) 20 mg, Oral, Every morning clobetasol (Temovate) 0.05 % cream Topical, 2 times daily estradiol (ESTRACE) 0.5 mg, Oral, Daily fluconazole (Diflucan) 150 MG tablet 1 tab now-repeat in 4-7 days if needed. pantoprazole (PROTONIX) 40 mg, 2 times daily Allergies Allergen Reactions Celebrex [Celecoxib] Other Pt felt sick, fatigued, sob, irritable Sulfa Antibiotics Hives and Rash Other Reaction(s): hives Patient Active Problem List Diagnosis Class 1 obesity Exercise-induced asthma (HCC) Arthritis, lumbar spine Gastroesophageal reflux disease without esophagitis Postmenopausal Depression, major, in remission Hormone replacement therapy Inflammatory arthritis Review of Systems Constitutional: Negative for chills, fatigue and fever. HENT: Positive for ear pain. Musculoskeletal: R shoulder and upper arm pain Objective Vital signs: BP 122/78 (Patient Position: Sitting) Pulse 60 Resp 16 LMP (LMP Unknown) SpO2 98% Physical Exam Constitutional: Appearance: Normal appearance. HENT: Head: Normocephalic. Right Ear: Tympanic membrane normal. Left Ear: Tympanic membrane normal. Ears: Comments: R canal with mild erythema and swelling Nose: Nose normal. Mouth/Throat: Mouth: Mucous membranes are moist. Eyes: Pupils: Pupils are equal, round, and reactive to light. Cardiovascular: Rate and Rhythm: Normal rate and regular rhythm. Pulmonary: Effort: Pulmonary effort is normal. Breath sounds: Normal breath sounds. Musculoskeletal: Right shoulder: Tenderness present. Decreased range of motion. Arms: Skin: General: Skin is warm and dry. Neurological: Mental Status: She is alert and oriented to person, place, and time. Psychiatric: Mood and Affect: Mood normal. Assessment/Plan Assessment & Plan 1. Shoulder pain. - The shoulder pain may ne related to a rotator cuff injury, with discomfort radiating downwards. - Physical exam findings indicate tenderness at the rotator cuff area and pain radiating down the arm. - Referral to an acute care clinical nurse specialist for a comprehensive evaluation and possible rotator injection. If necessary, an MRI may be ordered. Advised to contact the office within 5 to 7 business days ifno communication regarding the appointment is received. 2. Ear pain. - The ear pain is likely a residual symptom from a previous sinus infection and bronchitis. - Physical exam shows redness in the ear canal. - Discussed the use of Ciprodex drops to address the remaining symptoms. - Ciprodex drops prescribed, 4 drops in the morning and 4 drops at bedtime for 7 days. Prescriptionsent to pharmacy. Advised to keep the office updated on the condition. Problem List Items Addressed This Visit None Visit Diagnoses Acute pain of right shoulder - Primary Relevant Orders Ambulatory referral to Orthopaedic Surgery Pain of right upper arm Relevant Orders Ambulatory referral to Orthopaedic Surgery Non-recurrent acute suppurative otitis media of right ear without spontaneous rupture of tympanic membrane Relevant Medications ciprofloxacin-dexAMETHasone (CiproDEX) otic suspension Health Maintenance Topic Date Due Influenza Vaccine (1) 11/22/2024 Mammogram 02/09/2025 Colorectal Cancer Screening 12/29/2030 Immunization History Administered Date(s) Administered Covid-19, Subunit, Rs-nanoparticle, Adjuvanted, Pf, 5 Mcg/0.5 Ml 12/08/2023 Influenza, Injectable, MDCK, preservative free 02/09/2018, 12/08/2023 Influenza, injectable, MDCK, preservative free, quadrivalent 12/25/2022 Influenza, injectable, MDCK, quadrivalent 12/31/2021 Influenza, injectable, quadrivalent, preservative free 01/18/2015, 01/10/2020, 12/13/2020 Influenza, seasonal, injectable, preservative free 11/22/2018 Influenza, seasonal, intradermal, preservative free 01/08/2016, 04/15/2017 Novel [id number], preservative-free 01/28/2009 Pfizer Lorenzo Cap SARS-CoV-2 Vaccination [...] encounter. -Follow up for Next scheduled follow-up. Adry Alfonso NP documented in this encounterNorthwest Medical [id number] History of Present illness Narrative* Valentina Quintanilla MA - 09/22/2024 10:05 AM EDT Images from the original note were not included. [address] , [address] [facility], [address] P: [phone] F: [phone] HPI Historian of HPI: patient Giselle Georges is a 64 y.o. female who presents today to the Urgent Care with the following complaints and denials which have been present for 5 day(s) C/O Denies Symptom Comments [x] [] Runny Nose [] [x] Difficulty Swallowing [x] [] Sore Throat [x] [] Cough [x] [] Ear Pain R ear pain [] [x] Fever [] [x] Chills [x] [] Nasal Congestion [x] [] Myalgia [] [x] Sinus Pain [] [x] Sinus Pressure Additional Comments: pt has taken ibuprofen, dayquil OTC medication without relief ROS A complete system ROS was performed and negative aside from the pertinent positives noted in the HPI and PE. PHYSICAL EXAM General Examination: General Examination: alert, oriented, normal affect, well appearing, in no acute distress, well developed, well nourished Head: normocephalic, atraumatic Eyes: sclera non-icteric Ears: LT TM WNL, RT TM bulging with A/F level. Nose: congested with clear drainage. Oral Cavity: mucosa moist, no lesions Throat: PND noted Neck/Thyroid: no carotid bruit Lymph Nodes: no cervical adenopathy Heart: no murmurs, regular rate and rhythm, S1, S2 normal Lungs: clear to auscultation bilaterally Extremities: no edema, no cyanosis Neurologic: alert and oriented Psych: alert, oriented, cognitive function intact, cooperative with exam HPI, ROS, and PE reviewed and amended by Dr. Didier Merino as necessary. Written by basilia Quintanilla MA TREATMENT PLAN In house Covid Testing negative. 1. Acute bronchitis, unspecified organism (Primary) DX and TX discussed. Take meds as directed. Push fluids. OTC Mucinex DM and Claritin D. Follow withPCP as directed. - doxycycline (Vibramycin) 100 MG capsule; Take 1 capsule (100 mg) by mouth in the morning and 1 capsule (100 mg) before bedtime. Do all this for 10 days. Take with at least 8 ounces (large glass) ofwater, do not lie down for 30 minutes after. Dispense: 20 capsule; Refill: 0 - fluconazole (Diflucan) 150 MG tablet; Take 1 tablet (150 mg) by mouth Daily for 2 doses Dispense:2 tablet; Refill: 0 2. Non-recurrent acute serous otitis media of right ear Dx reviewed. 3. Cough, unspecified type Dx reviewed. - RAPID COVID 19 ANTIGEN documented in this encounterNorthwest Medical [id number] History of Present illness Narrative* Sigifredo Rothman DPM FACFAS - 09/16/2024 1:40 PM EDT Patient: Giselle Vasquez Dest[place] : 1960 PCP: Alice Polo, DO SUBJECTIVE This is a 64 y.o. 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 Rx'd by GI., Disp: , Rfl: ROS: General: denies fever, chills, fatigue, malaise Unremarkable OBJECTIVE LE EXAM: DERM: Positive hair growth to b/l feet with good skin turgor noted. Negative openings in skin VASC: Palpable pedal pulsed b/l with warm to cool tibia to toes b/l NEURO: Gross sensation intact digits 1-10 and b/l feet ORTHO: +5/5 DF/PF/IN/EV right, +5/5 DF/PF/IN/EV left. 20 degrees inversion and 10 degrees eversion STJ b/l. Ankle ROM less than 10 degrees b/l. XRAY: US: ASSESSMENT 1. Metatarsal deformity, right 2. Santana neuroma, right PLAN Informed patient that we will reduce the arch on the left custom orthotic by 3 mm and we will notify her once they have returned back and she can come and pick them up other than that she will remainin her original inserts with a shoe. She is not having any neuroma pain on the right LOW Cedillo documented in this encounterNorthwest Medical [id number] History of Present illness Narrative* LOW Cedillo - 09/02/2024 1:30 PM EDT Patient: Giselle Vasquez Dest[place] : 1960 PCP: Alice Polo, DO SUBJECTIVE This is a 64 y.o. female that presents today for for follow up after injection right foot and ulcerher custom orthotics have arrived. She states she has no pain currently after pickleball she only has a about a 2 she states the injection really helped. 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 Do all this for 10 days., Disp: 20 tablet, Rfl: 0 baclofen (Lioresal) 5 MG tablet, Take 5 [...] mouth Daily, Disp: 90 tablet, Rfl: 3 fluconazole (Diflucan) 150 MG tablet, 1 tab now-repeat in 4-7 days if needed., Disp: 2 tablet, Rfl:0 pantoprazole (ProtoNix) 40 MG EC tablet, Take 40 mg by mouth in the morning and 40 mg before bedtime. Rx'd by GI., Disp: , Rfl: ROS: General: denies fever, chills, fatigue, malaise Unremarkable OBJECTIVE LE EXAM: DERM: Positive hair growth to b/l feet with good skin turgor noted. Negative openings in skin VASC: Palpable pedal pulsed b/l with warm to cool tibia to toes b/l NEURO: Gross sensation intact digits 1-10 and b/l feet ORTHO: +5/5 DF/PF/IN/EV right, +5/5 DF/PF/IN/EV left. 20 degrees inversion and 10 degrees eversion STJ b/l. Ankle ROM less than 10 degrees b/l. No pain with direct palpation of 2nd webspace right foot XRAY: US: ASSESSMENT 1. Metatarsal deformity, right 2. Santana neuroma, right 3. Pain in right toe(s) 4. Santana's neuroma, left PLAN The patient was dispensed 1 pair of custom molded orthotic devices. They were educated on the use of the devices in shoe gear. There also educated on the break-in period with the orthotic devices as well. Patient was dispensed a handout describing the device with detailed instructions. Patient willcontinue wearing good structured shoes she is going to follow up in 2 weeks. LOW Cedillo documented in this encounterNorthwest Medical [id number] Telephone encounter Note* Telephone Encounter - Alma Disla DO - 09/02/2024 10:23 AM EDT Patient called in claiming that she has a sinus infection. Symptoms have been going on for 3 weeks.She is having headaches, facial pressure, thick yellow- green mucus. She denies fevers or chills. I am going to put her on Augmentin 875 b.I.d. for 10 days. If no improvement she is to call. Northwest Medical [id number] Miscellaneous Notes* Telephone Encounter - Alma Disla DO - 09/02/2024 10:23 AM EDT Patient called in claiming that she has a sinus infection. Symptoms have been going on for 3 weeks.She is having headaches, facial pressure, thick yellow- green mucus. She denies fevers or chills. I am going to put her on Augmentin 875 b.I.d. for 10 days. If no improvement she is to call. documented in this encounterNorthwest Medical CenterQybxcjpnsm68-72-2828 History of Present illness Narrative* Sigifredo Rothman DPM FACFAS - 08/19/2024 3:40 PM EDT Patient: Giselle Georges : 1960 PCP: Alice Polo DO SUBJECTIVE This is a 64 y.o. female that presents today injection for neuroma right foot. She states she has no pain she is progressing well and her orthotics impression was sent last week. 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 Rx'd by GI., Disp: , Rfl: ROS: General: denies fever, chills, fatigue, malaise Unremarkable OBJECTIVE LE EXAM: DERM: Positive hair growth to b/l feet with good skin turgor noted. Negative openings in skin VASC: Palpable pedal pulsed b/l with warm to cool tibia to toes b/l NEURO: Gross sensation intact digits 1-10 and b/l feet ORTHO: +5/5 DF/PF/IN/EV right, +5/5 DF/PF/IN/EV left. 20 degrees inversion and 10 degrees eversion STJ b/l. Ankle ROM less than 10 degrees b/l. No pain to direct palpation of the 2nd webspace right foot XRAY: US: ASSESSMENT 1. Metatarsal deformity, right 2. Santana neuroma, right PLAN Patient's custom orthotics were sent week ago she is going to return in 2 weeks for her custom orthotics she will continue with good structured shoe LOW Cedillo documented in this encounterNorthwest Medical [id number] History of Present illness Narrative* LOW Cedillo - 08/05/2024 2:00 PM EDT Images from the original note were not included. Patient: Giselle Georges : 1960 PCP: DO KENN Little This is a 64 y.o. female that [...] esophagitis Postmenopausal Depression, major, in remission (HCC) ([facility]) Hormone replacement therapy Inflammatory arthritis [...] < 3 seconds Digits 1-5 bilateral NEURO: Natalia Maritza 5.07 monofilament was intact B/L. Vibratory [...] the laboratory. LOW Cedillo documented in this [facility]05-05-2025 Evaluation note* Diagnosis Onset Date Resolution Status Admit Date BMI 27.0-27.9,adult acute July 262024 8:56am Chronic intermittent hypoxia with obstructive sleep apnea acute July 26, 2024 8:56am GERD (gastroesophageal reflu x disease) acute July 26, 2024 8: 56am Intolerance to BiPAP/CPAP acute July 26, 2024 8:56am Obstructive sleep apnea acute M 2024 8:56am GERD (gastroesophageal reflu x disease) acute July 26, 2024 1: 52pm [facility] Work Phone: 1(350) 985-287002-20-2025 History of Present illness Narrative* Alice Polo [...] ESTAssociated Problem(s): Depression, major, in remission (HCC) ([facility]/HCC) She reports good sx control at this time. Will continue current Rx (Celexa 30 mg) daily and monitorsx * Alice Polo DO - 05/13/2024 10:50 PM ESTAssociated Problem(s): Exercise-induced [...] She was getting this from Dr. Disla (OUTSOLE CUTTER MACHINE) and decided to take a break from [...] esophagitis Postmenopausal Depression, major, in remission (HCC) ([facility]) Hormone replacement therapy Inflammatory arthritis Social History [...] 165#/BMI=32.22). 04/24/2023- weight down to 146# 05/13/2024 TV=250.4# Current Assessment & Plan She has done [...] this change at this time. Exercise-induced asthma ([facility]) Current Assessment & Plan She [...] . Postmenopausal Depression, major, in remission (HCC) ([facility]) Overview Prescribed citalopram Current Assessment & Plan She reports good sx control at this time. Will continue current Rx (Celexa 30 mg) daily and monitorsx Hormone replacement therapy Overview Prescribed estradiol 0.5 mg daily by OUTSOLE CUTTER MACHINE/Dr Disla Other Visit Diagnoses Encounter for preventative [...] seasonal, intradermal, preservative free 01/08/2016, 04/15/2017 Novel [id number], preservative-free 01/28/2009 Pfizer Lorenzo Cap SARS-CoV-2 Vaccination 08/15/2021 [facility] Purple Cap SARS-CoV-2 Vaccination 06/09/2020, 06/29/2020, 02/21/2021 [...] medication monitoring. Alice Polo D.O. Board Certified Pole Peeling Machine Operator documented in this encounterNorthwest Medical [id number] History of Present illness Narrative* Adry Alfonso, [...] seasonal, intradermal, preservative free 01/08/2016, 04/15/2017 Novel [id number], preservative-free 01/28/2009 Pfizer Lorenzo Cap SARS-CoV-2 Vaccination [...] follow-up. ,Adry Alfonso NP documented in this encounterNorthwest Medical CenterCsmtxkddag99-69-6932 History of Present illness Narrative* Vilma Bruno LPN - 02/09/2024 12:15 PM EST Images from the original note were not included. Alma Disla, Obstetrics and Gynecology Giselle Georges 1960 02/09/24 [id number] Yearly Wellness Exam Chief Complaint Patient presents [...] 12/29/2020 Normal COLONOSCOPY 09/03/2022 Fer EGD 10/31/2015 EGD/[place] done by Dr. Ortiz (stenosis of upper [...] LIGATION Dr. Ba WISDOM TOOTH EXTRACTION 1980 [place] teeth impacted OB History Para Term AB [...] palpable. BACK: No obvious scoliosis/kyphosis. 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 [facility] Medical [id number] Miscellaneous Notes* Telephone Encounter - Alma Disla [...] and found nothingof significance. documented in this encounterNorthwest Medical [id number] History of Present illness Narrative* Alma Disla [...] per pt. COLONOSCOPY 12/29/2020 Normal EGD 10/31/2015 EGD/[place] done by Dr. Ortiz (stenosis of upper [...] LIGATION Dr. Ba WISDOM TOOTH EXTRACTION 1981 [place] teeth impacted Family History Problem Relation Name Age of Onset Depression Mother Michela Garrett,Ken Garrett(father), Ronni Garrett (b Hyperthyroidism Mother Michela Garrett,Ken Sarabiatt(father), Ronni Garrett (b Osteoporosis Mother Michela Garrett,Ken Sarabiatt(father), Ronni Garrett (b Osteoarthritis Mother Michela Garrett,Ken Garrett(father), Ronni Garrett (b Stroke Mother Michela Garrett,Ken Garrett(father), Ronni Garrett (b Alcohol abuse Father KEN SARABIATT Other (brain tumor) Father KEN TAMI benign brain tumor with shunt due to hydrocephalus Asthma Father KEN GARRETT Heart failure Brother Ronni Tami CHF Coronary artery disease Brother Ronni Garrett 48 Atrial fibrillation Brother Ronni Garrett 48 Depression Brother Ronni Garrett Severe Depression Heart attack Paternal Grandfather Acute [place] No Known Problems Daughter Healthy Ulcerative colitis [...] Signature: Alma Disla DO documented in this encounterNorthwest Medical CenterMcnvjurdhv41-34-3922 History of Present illness Narrative* Alma Disla [...] per pt. COLONOSCOPY 12/29/2020 Normal EGD 10/31/2015 EGD/[place] done by Dr. Ortiz (stenosis of upper esoph sphincter and small polyp of sigmoid colon) EGD 12/29/2020 EGD with esoph dilation (d/t esoph spasms) - Done by Dr. Ortiz FINGER SURGERY Left 04/27/2018 Left thumb surgery - Dr. Landaverde (due to OA) FINGER SURGERY Left 12/10/2018 Left thumb reconstruction / Dr. Bearden HYSTERECTOMY 2008 TVH, ovaries spared - Disease: Mennorhagia adenomyosis [...] LIGATION Dr. Ba WISDOM TOOTH EXTRACTION 1981 [place] teeth impacted Family History Problem Relation Name Age of Onset Depression Mother Michela Garrett,Ken Tami(father), Ronni Garrett (b Hyperthyroidism Mother Michela GarrettKen Garrett(father), Ronni Garrett (b Osteoporosis Mother Michela GarrettKen Garrett(father), Ronni Garrett (b Osteoarthritis Mother Michela GarrettKen Garrett(father), oRnni Garrett (b Stroke Mother Michela GarrettKen Garrett(father), Ronni Garrett (b Alcohol abuse Father KEN GARRETT Other (brain tumor) Father KEN GARRETT benign brain tumor with shunt due to hydrocephalus Asthma Father KEN GARRETT Heart failure Brother Ronni Garrett CHF Coronary artery disease Brother Ronni Garrett 48 Atrial fibrillation Brother Ronni Garrett 48 Depression Brother Ronni Garrett Severe Depression Heart attack Paternal Grandfather Acute [place] No Known Problems Daughter Healthy Ulcerative colitis [...] of yeast vaginitis-Rx diflucan. documented in this encounterNorthwest Medical CenterUmixstsfvy54-08-6575 History of Present illness Narrative* Alice Polo [...] ESTAssociated Problem(s): Depression, major, in remission (HCC) ([facility]/HCC) -Pt is doing well at this [...] List Diagnosis Class 1 obesity Exercise-induced asthma ([facility]/HCC) Arthritis, lumbar spine Gastroesophageal reflux disease without esophagitis Postmenopausal Depression, major, in remission (HCC) ([facility]) Hormone replacement therapy Review of [...] Overview Prescribed estradiol 0.5 mg daily by OUTSOLE CUTTER MACHINE/Dr Disla Other Visit Diagnoses Encounter for preventative [...] Annual Physical. Alice Polo D.O. Board Certified Pole Peeling Machine Operator documented in this encounterNorthwest Medical CenterMyjzpubyhr07-64-1755 Evaluation note* Encounter Date Diagnosis Assessment Notes Treatment Notes Treatment Clinical Notes Nov, GERD without esophagitis (ICD-10 - K21.9) PATIENT DOING WELL WITH THE PANTOPRAZOLE BID DOSING. SHE REPORTS MAYBE ONCE A WEEK WITH A FLARE OF SYMPTOMS. PATIENT CAN USE PEPCID OTC OR TUMS. [facility] Other 03-09-2023 NoteCONSULTATION CONSULTATION DATE: 05/30/2022 HISTORY [...] for re-evaluation. Patient agrees with this plan.[facility] [id number] NotePROCEDURE: XR HIP LT 2 3V WO [...] authenticated by: GENESIS BELLO Date: 2022-05-02 14:36[facility] CenterAxhznavq07-89-0425 NoteCONSULTATION CONSULTATION DATE: 05/02/2022 HISTORY OF PRESENT [...] completed 10 treatments of physical therapy in [place]. The patient does state, at the end [...] followed up in the office post procedure.[facility] CenterJontihno25-45-2370 NoteCONSULTATION CONSULTATION DATE: 02/07/2022 HISTORY OF PRESENT [...] review her thoracic x-ray at that time.[facility] CenterOkvmzeew35-56-7052 NoteCONSULTATION CONSULTATION DATE: 11/15/2021 This is a [...] indicated. 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 She describes [...] be followed up it the clinic post-procedure. [facility] Signed and Approved by: JONI MAHMOOD . 09/27/2021 16:26:00[facility]12-06-2021 Evaluation note* Encounter Date Diagnosis Assessment Notes Treatment Notes Treatment Clinical Notes Feb, GERD (gastroesophageal reflux disease) (ICD-10 - K21.9) [facility] Other 09-29-2021 Evaluation note* Encounter Date Diagnosis Assessment Notes Treatment Notes Treatment Clinical Notes Nov, GERD (gastroesophage al reflux disease) (ICD-10 - K21.9) GERD home care material was printed EGD START CARAFATE 1 GRAM TID Nov, Irritable bowel synd john with both constipation and diarrhea (ICD-10 - K58.2) Nov, Pharyngoesophageal dysphagia (ICD-10 - R13.14) Iggli Other Evaluation noteNo InformationNort Spireon Other Evaluation noteNo assessment information available [facility] Work Phone: Evaluation note* Diagnosis Encounter for preventative adult health care examination- Primary Arthritis, lumbar spine Depression, major, in remission (HCC) ([facility]) Gastroesophageal reflux disease without esophagitis Esophageal reflux Postmenopausal Asymptomatic postmenopausal status (age-related) (natural) Hormone replacement therapy Class 1 obesity BMI 29.0-29.9,adult [facility] Diagnosis Body mass index (BMI) 28.0-28.9, adult Abnormal weight gain Yeast infection BMI 29.0-29.9,adult documented [facility]* Diagnosis Onset Date Resolution Status GERD (gastroesophageal reflux disease) acute [facility] Work Phone: Evaluation note* Diagnosis Onset Date Resolution Status GERD (gastroesophageal reflux disease) acute BMI 27.0-27.9,adult acute Chronic intermittent hypoxia with obstructive sleep apnea acute GERD (gastroesophageal reflux disease) acute Intolerance to BiPAP/CPAP ac [place] Obstructive sleep apnea acut e [facility] Work Phone: Evaluation note* Diagnosis Encounter [...] in right toe(s) documented in this encounter [facility]* Diagnosis Encounter for preventative adult [...] Metatarsal deformity, right- Primary Santana neuroma, right documented in this encounter [facility]* Diagnosis Encounter for preventative adult health care examination- Primary Arthritis, lumbar spine Depression, major, in remission Gastroesophageal reflux disease without esophagitis Esophageal reflux Postmenopausal Asymptomatic postmenopausal status (age-related) (natural) Hormone replacement therapy Class 1 obesity Encounter for preventative adult health care examination- Primary Inflammatory arthritis Unspecified inflammatory polyarthropathy Class 1 obesity Exercise-induced asthma (HCC) Exercise induced bronchospasm Depression, major, in remission Postmenopausal Asymptomatic postmenopausal status (age-related) (natural) BMI 32.0-32.9,adult Hormone replacement therapy Gastroesophageal reflux disease without esophagitis Esophageal reflux Acute recurrent frontal sinusitis- Primary documented in this encounter [facility]* Diagnosis Encounter for preventative adult health care examination- Primary Arthritis, lumbar spine Depression, major, in remission Gastroesophageal reflux disease without esophagitis Esophageal reflux Postmenopausal Asymptomatic postmenopausal status (age-related) (natural) Hormone replacement therapy Class 1 obesity Encounter for preventative adult health care examination- Primary Inflammatory arthritis Unspecified inflammatory polyarthropathy Class 1 obesity Exercise-induced asthma (HCC) Exercise induced bronchospasm Depression, major, in remission Postmenopausal Asymptomatic postmenopausal status (age-related) (natural) BMI 32.0-32.9,adult Hormone replacement therapy Gastroesophageal reflux disease without esophagitis Esophageal reflux Metatarsal deformity, right- Primary Santana neuroma, right Pain in right toe(s) Santana's neuroma, left documented in this encounter [facility]* Diagnosis Encounter for preventative adult health care examination- Primary Arthritis, lumbar spine Depression, major, in remission Gastroesophageal reflux disease without esophagitis Esophageal reflux Postmenopausal Asymptomatic postmenopausal status (age-related) (natural) Hormone replacement therapy Class 1 obesity Encounter for preventative adult health care examination- Primary Inflammatory arthritis Unspecified inflammatory polyarthropathy Class 1 obesity Exercise-induced asthma (HCC) Exercise induced bronchospasm Depression, major, in remission Postmenopausal Asymptomatic postmenopausal status (age-related) (natural) BMI 32.0-32.9,adult Hormone replacement therapy Gastroesophageal reflux disease without esophagitis Esophageal reflux Metatarsal deformity, right- Primary Santana neuroma, right documented in this encounter [facility]* Diagnosis Encounter for preventative adult health care examination- Primary Arthritis, lumbar spine Depression, major, in remission Gastroesophageal reflux disease without esophagitis Esophageal reflux Postmenopausal Asymptomatic postmenopausal status (age-related) (natural) Hormone replacement therapy Class 1 obesity Encounter for preventative adult health care examination- Primary Inflammatory arthritis Unspecified inflammatory polyarthropathy Class 1 obesity Exercise-induced asthma (HCC) Exercise induced bronchospasm Depression, major, in remission Postmenopausal Asymptomatic postmenopausal status (age-related) (natural) BMI 32.0-32.9,adult Hormone replacement therapy Gastroesophageal reflux disease without esophagitis Esophageal reflux Acute pain of right shoulder- Primary Pain of right upper arm Non-recurrent acute suppurative otitis media of right ear without spontaneous rupture of tympanic membrane documented in this encounter [facility]* Diagnosis Encounter for preventative adult health care examination- Primary Arthritis, lumbar spine Depression, major, in remission Gastroesophageal reflux disease without esophagitis Esophageal reflux Postmenopausal Asymptomatic postmenopausal status (age-related) (natural) Hormone replacement therapy Class 1 obesity Encounter for preventative adult health care examination- Primary Inflammatory arthritis Unspecified inflammatory polyarthropathy Class 1 obesity Exercise-induced asthma (HCC) Exercise induced bronchospasm Depression, major, in remission Postmenopausal Asymptomatic postmenopausal status (age-related) (natural) BMI 32.0-32.9,adult Hormone replacement therapy Gastroesophageal reflux disease without esophagitis Esophageal reflux Acute bronchitis, unspecified organism- Primary Non-recurrent acute serous otitis media of right ear Cough, unspecified type documented in this encounter [facility]* Diagnosis Onset Date Resolution Status Admit Date Strain of tendon of right rotator cuff acute October 25, 2024 7:45am [facility] Work Phone: History general Narrative - Reported* Type Description Date Medical History Gastroesophageal Reflux Disease Medical History Anxiety/Depression Medical History seasonal asthma Surgical History Caesarean Section X 3 Surgical History Tonsillectomy/Adenoidectomy Surgical History Laparoscopy Surgical History Hysteroscopy/Endometrial Ablati on Surgical History Laparoscopy Cholecystectomy Surgical History [facility] tenton interposition Arthro plasty 2019 Hospitalization History See Above [facility] - [facility] Hisavgv general Narrative - Reported* Type Description Date [...] History ablasion-LUMBAR NERVE Hospitalization History See Above [facility] Other Hospital Discharge instructions Additional Instructions Follow up with your primary care doctor [facility] to the ED [facility] you develop worsening [facility] Reason for referral (narrative)No reason for referral [facility]: Chief Complaint and Reason for [...] 2024 8:56am GERD (gastroesophageal reflux disease) M ay 2024 8:56am Intolerance to BiPAP/CPAP July 26, 2024 8:56am Obstructive sleep apnea July 26, 2024 8: 56am GERD (gastroesophageal reflux disease) M ay 2024 1:52pm Chief Complaint Admit Date CONSULT DR LUNA RT SHOULDER PAIN NX Au hillary 2024 7:45am M25.511 - Pain in right shoulder October 25, 2024 7:50am Reason for Visit Admit Date Strain of tendon of right rotator cuff A ugust 2024 7:45am Family History No Family History Records Found [...] Reason Comments Foot Pain Right foot pain Reason Comments Neuroma FU RT neuroma inj x1 Reason Comments Neuroma FU RT neuroma Foot 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 [employer]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 Reason Comments [facility] F/U orthotics Reason Comments Follow-up Care Teams (unrecognized sec tion and content) [...] Active Team Status: Inactive Member Role Status Richard Polo , Primary Care Provider Active Alix Perez NP Attending Provider Active Team Status: Inactive Member Role Status Dates Alice Polo , DO Primary Care Provider Active Edison Monroe MD Attending Provider Active Yarn Salvager Relationship Specialty Start Date End Date Alice Polo DO [address] [place] [address] PCP - General Internal Medicine 07/30/22 Yarn Salvager Relationship Specialty Start Date End Date Alice Polo DO [address] [place] [address] PCP - General Internal Medicine 07/30/22 Team Status: Inactive Member Role Status Richard Polo , DO Primary Care Provider Active [...] August 27, 2023 End: August 27, 2023 Yarn Salvager Relationship Specialty Start Date End Date Alice Polo DO [address] [place] [address] PCP - General Internal Medicine 07/30/22 Alice Polo DO [address] [place] [address] PCP - [facility] 12/23/23 Yarn Salvager Relationship Specialty Start Date End Date Alice Polo DO [address] [place] [address] PCP - General Internal Medicine 07/30/22 Alice Polo DO [address] [place] [address] PCP - [facility] 12/23/23 Yarn Salvager Relationship Specialty Start Date End Date Alice Polo DO [address] [place] [address] PCP - [facility] Internal Medicine 07/30/22 Yarn Salvager Relationship Specialty Start Date End Date Alice Polo DO [address] [place] [address] PCP - General Internal Medicine 07/30/22 Yarn Salvager Relationship Specialty Start Date End Date Alice Polo DO [address] [place] [address] PCP - General Internal Medicine 07/30/22 Alice Polo DO [address] [facility] [address] [place] [address] PCP - [facility] 12/23/23 Team Status: Inactive Member Role Status Richard Polo DO Primary Care Provider Active Start: June 28, 2024 End: June 28, 2024 Johnny Tejada MD Attending Provider Active St art: June 28, 2024 End: June 28, 2024 Team Status: Inactive Member Role Status Richard Polo DO Primary Care Provider Active Start: July 26, 2024 End: July 26, 2024 Alix Perez NP Attending Provider Active Start: July 26, 2024 End: July 26, 2024 Team Status: Inactive Member Role Status Richard Polo DO Primary Care Provider Active Start: July 26, 2024 End: July 26, 2024 Gabe Gonzalez APRN Attending Provider Active Start: July 26, 2024 End: July 26, 2024 Yarn Salvager Relationship Specialty Start Date End Date Alice Polo DO [address] [facility] [address] [place] [address] PCP - General Internal Medicine 07/30/22 Alice Polo DO [address] [facility] [address] [place] [address] [facility] 12/23/23 Yarn Salvager Relationship Specialty Start Date End Date Alice Polo DO [address] [place] [address] PCP - General Internal Medicine 07/30/22 Alice Polo, DO [address] [place] [address] PCP - [facility] 12/23/23 Yarn Salvager Relationship Specialty Start Date End Date Alice Polo, DO [address] [place] [address] PCP - [facility] Internal Medicine 07/30/22 Alice Polo, DO [address] [place] [address] PCP - [facility] 12/23/23 Yarn Salvager Relationship Specialty Start Date End Date Alice Polo, [address] [place] [address] PCP - General Internal Medicine 07/30/22 Alice Polo, DO [address] [place] [address] PCP - [facility] 12/23/23 Yarn Salvager Relationship Specialty Start Date End Date Alice Polo, DO [address] [place] [address] PCP - General Internal Medicine 07/30/22 Alice Polo, DO [address] [place] [address] PCP - [facility] 12/23/23 Yarn Salvager Relationship Specialty Start Date End Date Alice Polo DO [address] [place] [address] PCP - General Internal Medicine 07/30/22 Team Status: Inactive Member Role Status Dates Alice Polo DO Primary Care Provider Active Start: October 25, 2024 End: October 25, 2024 Christopher Lin DO Attending Provider Active St art: October 25, 2024 End: October 25, 2024 Team Status: Active Member Role Status Dates Alice Polo DO Primary Care Provider Active Start: October 25, 2024 Christopher Lin DO Attending Provider Active St art: October 25, 2024 Goals (unrecognized section and content) Goals may be documented in a n alternate section INFORMATION SOURCE (unrecogn ized section and content) DATE CREATED AUTHOR 12/21/2021 [facility] dical Specialist DATE CREATED AUTHOR AUTHOR'S ORGANIZ ATION 05/25/2022 [facility] DATE CREATED AUTHOR AUTHOR'S ORGANIZ ATION 06/05/2022 [facility] DATE CREATED AUTHOR AUTHOR'S ORGANIZ ATION 08/20/2024 [facility] DATE CREATED AUTHOR AUTHOR'S ORGANIZ ATION 10/10/2024 [facility] dical Specialists [facility] DATE CREATED AUTHOR AUTHOR'S ORGANIZ ATION 11/17/2024 [facility] FOR RECORDS PERTAINING TO PATIENTS [...] BE BASED ON THE PRIMARY CLINICAL RECORDS. [employer] [facility]. provides no warranty or guarantee of the accuracy or completeness of information in this document.
--- NOTE | 2024-11-18 10:37 | PM.CN ---
Consult Note: HPI Data of Consult Patient: known to practice within the last 3 years Consult date: 11/18/24 Requesting Physician: Jordyn Schroeder NP Primary Care Provider: PETER FERRER Consult Narrative Reason for consult: f/u Narrative: Flores Georges a pleasant 64 year old female with chronic back pain. Patient reporting pain 0/10 intermittent in low back and right buttock. Pain increasing to 2/10 at times. Finds improvement from motrin and baclofen 5-10mg PRN without side effects. Continues to engage in provider guided HEP greater than 6 weeks with mild benefit. patient trialed TENS without benefit, she has attended >10 caregivers homecare visits with moderate benefit. continues to engage in provider guided HEP 2x/week > 6 weeks for neck and low back pain. Pt reports >50% improvement as a result of prior left L4-5 L5-S1 tfesi. cc:: CC: Jordyn Schroeder NP Review of Systems ROS Musculoskeletal Denies: back pain, extremity pain or joint pain PFSH PFSH Medical History Surgical History H/O hand surgery ?Z98.890 - Other specified postprocedural states (ICD-10) History of cholecystectomy ?Z90.49 - Acquired absence of other specified parts of digestive tract (ICD-10) H/O: hysterectomy ?Z90.710 - Acquired absence of both cervix and uterus (ICD-10) Meds Home Medications and Allergies Home Medications ?Medication ?Instructions ?Recorded ?Confirmed ?Type baclofen 10 mg tablet 10 mg PO DAILY 08/29/22 08/09/24 History citalopram 20 mg tablet (Celexa) 20 mg PO DAILY 08/29/22 08/09/24 History estradiol 1 mg tablet (Estrace) 1 mg PO DAILY 08/29/22 08/09/24 History omeprazole 40 mg capsule,delayed 40 mg PO DAILY 08/29/22 08/09/24 History release Allergies Allergy/AdvReac Type Severity Reaction Status Date / Time Sulfa (Sulfonamide Allergy Mild Unknown Verified 08/09/24 08:10 Antibiotics) Exam Constitutional Documenting provider has reviewed patient's vital signs: yes Common normals: no apparent distress, oriented x3, healthy appearing, alert and well nourished General appearance: cooperative HENMT Common normals: normocephalic, hearing grossly normal bilaterally and moist oral mucous membranes Head and scalp: normocephalic Eye Common normals: PERRL Pupil: PERRL Neck & C-Spine Common normals: full ROM General: normal visual inspection Cervical spine: cervical ROM abnormal, pain with cervical ROM and cervical spine tenderness Chest Common normals: inspection of chest normal Respiratory Common normals: normal respiratory effort, no retractions and no use of accessory muscles Back & Pelvis Thoracic spine/upper back: normal to inspection; no paraspinal muscle tenderness and no paraspinal muscle spasm Lumbar spine/lower back: normal to inspection and straight leg raise negative bilaterally; ROM not limited, no pain with ROM, no paraspinal muscle tenderness and no paraspinal muscle spasm Sacroiliac joints: SI joints normal Other: strength 5/5 in BLE Extremity Common normals: normal to inspection and full ROM Neuro Common normals: oriented x3 Sensorium/orientation: alert Motor exam: no movement abnormalities noted Psych Common normals: mental status grossly normal, thought process normal, cooperative, affect normal, speech normal and activity/motor behavior normal Speech: normal speech Thought process: normal thought process Results Additional Findings Additional findings: If on a controlled substance or opioids, I have checked an [place] report on this patient and there are no aberrancies noted in the prescribing history.??If on a controlled substance or opioid a drug screen was completed and reviewed within the last year, and if there has not been a drug screen completed we ordered one today to monitor higher risk, state monitored pain medication use. As part of providing excellent, safe, comprehensive care, the following was completed at our patient's visit: 1. A medication reconciliation and review to ensure accurate knowledge of current/active medications, including asking our patients to inform us about any [id number] medications or herbal remedies/nutritional supplements/alternative remedies. 2. A review to specifically ensure our patients have had annual screening for screening for depression, screening for tobacco use, and screening for unhealthy alcohol use. For concerning screenings had a discussion with the patient, provided patient education, and recommended follow-up with primary care provider when appropriate. If patient noted with a risk of falling, they received education on strength, gait, and balance training to prevent future risk of falling. Portions of this note may have been carried over from the previous visit and updated as appropriate. Please note this office utilizes paper charting in addition to the electronic medical record. A list of current medications, vitals, and PMH is available there as the clinical staff outside of myself do not have access to [facility] charting during the clinic day operations. As part of providing quality comprehensive care the current medications, vitals, and PMH were reviewed in the paper chart. Assessment and Plan Assessment and Plan (1) Lumbar stenosis with neurogenic claudication: Assessment and Plan: The patient has had over 3 months of moderate to severe neck and low back pain with functional impairment and inadequate response to conservative care including NSAIDS (unless there are contraindication such as concurrent blood thinners), multiple oral or topical pain medications, and home exercise program/physical therapy.? Patient has completed >6 weeks of guided home exercise program and/or formal physical therapy program without relief of their symptoms.? I have reviewed the imaging of the cervical and lumbar spine and no red flags were identified.? The imaging reveals radiographic findings consistent with cervical/lumbar spondylosis and lumbar radiculopathy/stenosis with NC The Oswestry Disability Index was completed, and the patient scored a 4%.? (2) Sacroiliitis: (3) Lumbar spondylosis: (4) Myalgia, other site: Plan continue current medications, denies side effects continue HEP as tolerated continue caregivers homecare PRN f/u 6 months, sooner if needed
== END 2024-11-18 10:18 | disposition home or self-care (01) ==
LOC: PM 10:18
PROVIDERS: PCP Internal Medicine; Visit Provider Nurse Practitioner
DX: M48.062 Spinal stenosis, lumbar region with neurogenic claudication (principal); M46.1 Sacroiliitis, not elsewhere classified; M47.816 Spondylosis without myelopathy or radiculopathy, lumbar region; M79.18 Myalgia, other site
CPT/HCPCS: G0463